=== PATIENT | male | born 1980 | race Caucasian/White ===

== ENCOUNTER 2020-02-05 15:21 | Outpatient (REF) | payer OTHER, SELFPAY | END 2020-02-05 15:22 | disposition home or self-care (01) | LOC: HO.LAB 15:21 | PROVIDERS: Visit Provider Hospitalist | DX: Z20.828 Contact with and (suspected) exposure to other viral communicable diseases (principal) | CPT/HCPCS: U0003 ==

== ENCOUNTER 2020-03-01 08:43 | Outpatient (REF) | payer OTHER, SELFPAY ==
[2020-03-01 11:25] LABS: MANUAL DIFF FLAG NO
[2020-03-01 11:52] LABS: Basophils Absolute Auto 0.1 X10*3/uL (0.0-0.2); Basophils Percent Auto 0.7 % (0-2); Eosinophils Absolute Auto 0.2 X10*3/uL (0.0-0.4); Eosinophils Percent Auto 2.8 % (0-4); Hematocrit 44.9 % (42-52); Hemoglobin 15.5 g/dl (14.0-18.0); Imm Gran Abs Auto 0.01 X10*3/uL (0.00-0.03); Imm Gran Pct Auto 0.1 % (0.0-0.4); Lymphocytes Absolute Auto 2.1 X10*3/uL (1.2-4.9); Lymphocytes Percent Auto 28.8 % (20-40); Mean Corpuscular HGB Conc 34.5 g/dl (31.0-36.0); Mean Corpuscular Hemoglobin 27.2 pg (27.0-33.0); Mean Corpuscular Volume 78.8 fL (80-98); Mean Platelet Volume 10.4 fL (9.4-12.4); Monocytes Absolute Auto 0.6 X10*3/uL (0.1-1.2); Monocytes Percent Auto 8.3 % (2-11); Neutrophils Absolute Auto 4.2 X10*3/uL (2.0-8.3); Neutrophils Percent Auto 59.3 % (45-73); Platelet Count 215 X10*3/uL (160-400); White Blood Count 7.2 X10*3/uL (4.8-10.8)
[2020-03-01 12:10] LABS: Alanine Aminotransferase 33 U/L (0-40); Albumin Level 4.6 g/dL (3.5-5.0); Alkaline Phosphatase 87 U/L (39-117); Anion Gap 14 (12-20); Aspartate Amino Transferase 36 U/L (5-37); Bilirubin Total 0.7 mg/dL (0.0-1.0); Blood Urea Nitrogen 22 mg/dL (9-16); Calcium 8.9 mg/dL (8.4-10.2); Carbon Dioxide 28 mmol/L (22-29); Chloride 104 mmol/L (96-108); Cholesterol 192 mg/dL; Estimated Glomerular Filt Rate 52; Glucose Random 84 mg/dL (60-115); HDL Cholesterol 29 mg/dL; LDL Cholesterol Calculated 107 mg/dl; Potassium 3.9 mmol/l (3.3-5.1); Sodium 142 mmol/L (135-145); Total Protein 7.3 g/dL (6.5-8.0); Triglycerides 283 mg/dL
== END 2020-03-01 08:44 | disposition home or self-care (01) ==
LOC: HO.HMGCLDS 08:43
PROVIDERS: PCP Nurse Practitioner Family; Visit Provider Nurse Practitioner Family
DX: Z01.818 Encounter for other preprocedural examination (principal); I10 Essential (primary) hypertension
CPT/HCPCS: 36415; 80053; 80061; 84443; 85025

== ENCOUNTER 2020-03-11 08:31 | Outpatient (REF) | payer OTHER, SELFPAY ==
[2020-03-11 11:14] LABS: INTERNATIONAL NORM RATIO 0.9 (0.9-1.1); Prothrombin Time 11.2 SEC (10.8-13.0)
== END 2020-03-11 08:32 | disposition home or self-care (01) ==
LOC: HO.HMGCLDS 08:31
PROVIDERS: PCP Nurse Practitioner Family; Visit Provider Nurse Practitioner Family
DX: Z01.818 Encounter for other preprocedural examination (principal); I10 Essential (primary) hypertension
CPT/HCPCS: 36415; 85610

== ENCOUNTER 2020-05-20 13:53 | Outpatient (REF) | payer OTHER, SELFPAY ==
--- NOTE | ~2020-05-20 | XR_ITS ---
EXAMINATION: XR LUMBOSACRAL SPINE CLINICAL INFORMATION: Lower back pain COMPARISON: 07/26/2018 TECHNIQUE: Three views of the lumbosacral spine. FINDINGS: The vertebral bodies and posterior elements are normal. The disc spaces are preserved and the vertebral alignment is normal. The sacroiliac joints are symmetric. The sacrum appears intact. The bowel gas pattern is unremarkable. The paraspinal soft tissues are normal. XR/XR lumbar spine 2-3V IMPRESSION: Normal appearance of the lumbar spine.
== END 2020-05-20 13:54 | disposition home or self-care (01) ==
LOC: HO.HMGCX 13:53
PROVIDERS: PCP Nurse Practitioner Family; Visit Provider Nurse Practitioner Family
DX: M54.5 Low back pain (principal)
CPT/HCPCS: 72100

== ENCOUNTER 2020-05-27 10:10 | Outpatient (REF) | payer OTHER, SELFPAY ==
[2020-05-31 22:03] LABS: Testosterone, Free 64.9 pg/mL (35.0-155.0); Testosterone, Total 276 ng/dL (250-1100)
== END 2020-05-27 10:11 | disposition home or self-care (01) ==
LOC: HO.HMGCLDS 10:10
PROVIDERS: PCP Nurse Practitioner Family; Visit Provider Urology
DX: E29.1 Testicular hypofunction (principal)
CPT/HCPCS: 36415; 84402; 84403

== ENCOUNTER → 2020-06-19 13:30 | Outpatient (BNVA) | payer OTHER, SELFPAY | PROVIDERS: PCP Nurse Practitioner Family; Visit Provider Urology | DX: Z13.89 Encounter for screening for other disorder (principal) | CPT/HCPCS: 99212 ==

== ENCOUNTER 2020-08-20 15:00 | Outpatient (RCR) | payer OTHER, SELFPAY ==
--- NOTE | 2020-07-04 09:49 | MHC.PT.EP ---
[facility] [place] [facility] [place] Office [place] Office [address] [phone] F: [phone] F: [phone] F: [phone] F: [phone] Physical Therapy Plan of Care Date of Evaluation: Date of Surgery: Diagnosis: Assessment: Pt is a 39 y/o male referred to PT for eval and treat of LBP who presents with signs and Sx consistent with lumbar dysfunction and possible derangement resulting in decreased tolerance for sitting and standing for duration, performing heavy HH chores and lifting objects of increased weight as well as disturbed sleep secondary to decreased trunk ROM, increased lumbar tissue tension, L LE radicular symptoms and pain. Pt is deemed an appropriate candidate to receive skilled PT services in order to address his physical impairments to improve his functional ability. Frequency and Duration: The patient will be seen 2 x/ wk x 5 wks. Short Term Goals: Complete PT eval upon next visit as Pt requested to leave before appointment ended. Abolish LE radicular Sx. Life Sciences Director Goals: Pt will be able to tolerate standing > 1 hour with managed Sx; initial: 10 min. I with HEP. Pt will report < 50% disturbed sleep d/t LBP; initial 3/4 disturbed night's sleep. Treatment Plan: Modalities to reduce pain, spasms and effusion. Manual therapy to restore motion and function. Therapeutic exercise to improve strength and flexibility. Neuromuscular re-education for posture and balance. Therapeutic activities to return to functional activities of daily living. Electronically signed by: Estuardo Roque PT. Please sign and return to therapist. Thank you for your referral.
--- NOTE | 2020-10-16 09:57 | MHC.PT.DC ---
[facility] [place] Office [place] Office [place] Office [address] [phone] F: [phone] F: [phone] F: [phone] F: [phone] Physical Therapy Discharge Report Diagnosis: Date of Surgery: Date of Evaluation: 06/14/20 Date of Discharge: 07/16/20 Treatments to Date: 4 Cancellations to Date: No Shows to Date: Discharge Status: Achieved Goals Improved Function Independent with HEP Discharge Summary: Gerard reported significant improvement in 4 visits and elected to stop d/t a worsening foot issue. Electronically signed by: Estuardo Roque PT Please sign and return to therapist. Thank you for your referral.
== END 2020-10-16 09:57 | disposition home or self-care (01) ==
LOC: HO.PTCHIC 15:00
PROVIDERS: PCP Nurse Practitioner Family; Visit Provider Nurse Practitioner Family
DX: M54.5 Low back pain (principal)
CPT/HCPCS: 97110; 97140; 97161

== ENCOUNTER 2020-09-05 11:22 | Outpatient (REF) | payer OTHER, SELFPAY | END 2020-09-05 11:23 | disposition home or self-care (01) | LOC: HO.LNP 11:22 | PROVIDERS: Visit Provider Hospitalist | DX: Z20.822 Contact with and (suspected) exposure to COVID-19 (principal) | CPT/HCPCS: U0003; U0005 ==

== ENCOUNTER 2020-10-14 09:50 | Outpatient (REF) | payer OTHER, SELFPAY ==
[2020-10-18 01:55] LABS: Testosterone, Total 328 ng/dL (250-1100)
== END 2020-10-14 09:51 | disposition home or self-care (01) ==
LOC: HO.HMGCLDS 09:50
PROVIDERS: PCP Nurse Practitioner Family; Visit Provider Urology
DX: E29.1 Testicular hypofunction (principal)
CPT/HCPCS: 36415; 84403

== ENCOUNTER → 2020-11-08 15:40 | Outpatient (BNVA) | payer OTHER, SELFPAY | PROVIDERS: PCP Nurse Practitioner Family; Visit Provider Urology | DX: E29.1 Testicular hypofunction (principal) ==

== ENCOUNTER 2020-12-03 12:32 | Outpatient (REF) | payer OTHER, SELFPAY ==
--- NOTE | ~2020-12-03 | XR_ITS ---
EXAMINATION: XR HIP, LEFT CLINICAL INFORMATION: Left hip sprain. COMPARISON: None TECHNIQUE: AP view of the pelvis. AP and frog-leg lateral views of the left hip. FINDINGS: No fracture or dislocation. No joint space narrowing or marginal osteophytes. No osseous erosion. No abnormal soft tissue calcification. Surgical clips within the scrotum. XR/XR hip LT w PEL1V IMPRESSION: No acute osseous abnormality.
[2020-12-03 14:55] LABS: Influenza A PCR NEGATIVE (Negative); Influenza B PCR NEGATIVE (Negative); Resp Syncy Virus RNA Qual PCR NEGATIVE (Negative); SARS COV2 PCR INHOUSE NEGATIVE (Negative)
== END 2020-12-03 12:33 | disposition home or self-care (01) ==
LOC: HO.HMGCX 12:32
PROVIDERS: Internal Medicine; PCP Nurse Practitioner Family; Visit Provider Nurse Practitioner Family
DX: S73.102A Unspecified sprain of left hip, initial encounter (principal); R43.9 Unspecified disturbances of smell and taste
CPT/HCPCS: 0241U; 36415; 73502

== ENCOUNTER 2020-12-26 13:31 | Outpatient (REF) | payer OTHER, SELFPAY ==
[2020-12-26 16:45] LABS: Alanine Aminotransferase 33 U/L (0-40); Albumin Level 4.3 g/dL (3.5-5.0); Alkaline Phosphatase 67 U/L (39-117); Anion Gap 10 (12-20); Aspartate Amino Transferase 27 U/L (5-37); Bilirubin Total 0.4 mg/dL (0.0-1.0); Blood Urea Nitrogen 16 mg/dL (9-16); Calcium 9.1 mg/dL (8.4-10.2); Carbon Dioxide 29 mmol/L (22-29); Chloride 103 mmol/L (96-108); Estimated Glomerular Filt Rate 48; Glucose Random 71 mg/dL (60-115); Potassium 3.9 mmol/L (3.3-5.1); Sodium 138 mmol/L (135-145); Total Protein 6.9 g/dL (6.5-8.0)
== END 2020-12-26 13:32 | disposition home or self-care (01) ==
LOC: HO.HMGCLDS 13:31
PROVIDERS: PCP Nurse Practitioner Family; Visit Provider Nurse Practitioner Family
DX: Z00.00 Encounter for general adult medical examination without abnormal findings (principal); I10 Essential (primary) hypertension
CPT/HCPCS: 36415; 80053; 84443

== ENCOUNTER 2021-01-16 11:12 | Outpatient (REF) | payer OTHER, SELFPAY ==
[2021-01-16 14:10] LABS: Alanine Aminotransferase 30 U/L (0-40); Albumin Level 4.4 g/dL (3.5-5.0); Alkaline Phosphatase 67 U/L (39-117); Anion Gap 12 (12-20); Aspartate Amino Transferase 25 U/L (5-37); Bilirubin Total 0.8 mg/dL (0.0-1.0); Blood Urea Nitrogen 23 mg/dL (9-16); Calcium 9.5 mg/dL (8.4-10.2); Carbon Dioxide 27 mmol/L (22-29); Chloride 105 mmol/L (96-108); Estimated Glomerular Filt Rate 47; Glucose Fasting 105 mg/dL (60-99); Potassium 4.2 mmol/L (3.3-5.1); Sodium 140 mmol/L (135-145); Total Protein 7.1 g/dL (6.5-8.0)
[2021-01-16 14:32] LABS: Prostate Specific Antigen 0.58 ng/mL (<0.05-4.0)
[2021-01-21 22:46] LABS: Estradiol Ultra Sensitive 54 pg/mL (< OR = 29)
[2021-01-22 14:41] LABS: Testosterone, Free 67.6 pg/mL (35.0-155.0); Testosterone, Total 338 ng/dL (250-1100)
== END 2021-01-16 11:13 | disposition home or self-care (01) ==
LOC: HO.HMGCLDS 11:12
PROVIDERS: Absent Provider Urology; PCP Nurse Practitioner Family; Visit Provider Nurse Practitioner Family
DX: Z00.00 Encounter for general adult medical examination without abnormal findings (principal); E29.1 Testicular hypofunction; N18.9 Chronic kidney disease, unspecified; I10 Essential (primary) hypertension; Z12.5 Encounter for screening for malignant neoplasm of prostate
CPT/HCPCS: 36415; 80053; 82670; 84153; 84402; 84403

== ENCOUNTER → 2021-03-18 15:57 | Outpatient (REF) | payer OTHER, SELFPAY | LOC: HO.SL 15:57 | PROVIDERS: PCP Nurse Practitioner Family; Visit Provider Nurse Practitioner Family | DX: G47.30 Sleep apnea, unspecified (principal) | CPT/HCPCS: 95806 ==

== ENCOUNTER → 2021-03-20 08:50 | Outpatient (BNVA) | payer OTHER, SELFPAY | PROVIDERS: PCP Nurse Practitioner Family; Visit Provider Urology ==

== ENCOUNTER → 2021-03-24 11:48 | Outpatient (BNVA) | payer OTHER, SELFPAY | PROVIDERS: Visit Provider Urology ==

== ENCOUNTER → 2021-04-01 14:55 | Outpatient (BNVA) | payer OTHER, SELFPAY | PROVIDERS: PCP Nurse Practitioner Family; Referring Provider Nurse Practitioner Family; Visit Provider Psychiatry & Neurology Neurology | DX: G47.33 Obstructive sleep apnea (adult) (pediatric) (principal) | CPT/HCPCS: 99202 ==

== ENCOUNTER 2021-05-29 10:36 | Emergency (ER) | payer OTHER, SELFPAY ==
[2021-05-29] VITALS (7 sets, daily range): BP systolic 142–162; BP diastolic 74–102; PULSE 78–93; RESP 13–18; TEMP 36.6–36.8; O2SAT 95–98; BMI 33.0
--- NOTE | ~2021-05-29 | XR_ITS ---
EXAMINATION: XR CHEST CLINICAL INFORMATION: Cough. COMPARISON: Chest x-rays 02/21/2019 TECHNIQUE: 2 views of the chest were obtained. FINDINGS: The lungs are well-expanded with mild elevation right hemidiaphragm. There is no acute pneumonic process. The heart size and pulmonary vascularity is normal. No gross bony abnormality seen. XR/XR chest 2V IMPRESSION: Unremarkable chest examination.. No change from previous study 02/21/2019
--- NOTE | ~2021-05-29 | CT_ITS ---
EXAMINATION: CT CHEST WITHOUT CONTRAST CLINICAL INFORMATION: Shortness of breath. Cough. Evaluate for pneumonia. COMPARISON: Chest x-ray 05/29/2021 TECHNIQUE: Multidetector volumetric CT imaging of the chest was done. Axial MIP volume rendering provided. Sagittal and coronal reformatted images were obtained. This CT examination was performed using dose optimization techniques as appropriate, variously including the following: *Automated exposure control *Adjustment of mA and/or kV according to patient size (this includes techniques or standardized protocols for targeted exams where dose is matched to indication/reason for exam; i.e. extremities or head) *Use of iterative reconstruction technique DLP: 370 mGy-cm FINDINGS: LUNGS: The lungs are clear with no evidence of inflammation or nodules. MEDIASTINUM: Heart size is normal. No pericardial effusion. Moderate volume of coronary artery calcification. No mediastinal mass or significant lymphadenopathy. Partially visualized thyroid is unremarkable. PLEURA: There is no pleural effusion. No pleural mass or thickening. AXILLA: No lymphadenopathy. UPPER ABDOMEN: Unremarkable. OSSEOUS STRUCTURES: Unremarkable. CT/CT chest wo con IMPRESSION: No acute abnormality of chest. Fleischner guidelines were followed.
--- NOTE | 2021-05-29 11:21 | ED.URI ---
HPI - URI/Sore Throat General Chief Complaint: Upper Respiratory Symptoms Stated Complaint: difficulty breathing Time Seen by Provider: 05/29/21 11:00 Source: patient Mode of arrival: ambulatory Limitations: no limitations History of Present Illness HPI Narrative: 40-year-old male with a history of obstructive sleep apnea, chronic kidney disease, high blood pressure here with reports of continued cough, shortness of breath with coughing, chest discomfort with coughing. Patient tells me Wednesday evening he started to have a fever, cough. This continued through Wednesday. Wednesday morning he went to urgent care. He tells me he had a chest x-ray that was concerning for pneumonia. His testing for flu and COVID were negative. He was started on azithromycin and prednisone and given an albuterol for p.r.n.. Patient tells me he is taking these medications with continued symptoms. He does not feel like he is getting better. He tells me his biggest complaint is cough which is worsened at night time and is associated with coughing fits. He denies any leg swelling or leg pain. He had a fever on day 1 but no fever since then. He tells me both of his stepdaughter's are sick with fever and cough. No recent travel. Related Data Home Medications Medication Instructions Recorded Confirmed tadalafil 10 mg tablet 10 mg PO DAILY PRN tab 04/15/21 Previous Rx's Medication Instructions Recorded triamcinolone acetonide 0.1 % 1 applic TOPICAL DAILY 30 Days #80 12/25/19 topical cream g lidocaine 5 % topical patch 1 patch TOPICAL DAILY PRN 15 Days 05/27/20 #15 ea albuterol sulfate 90 mcg/actuation 1 inh INHALATION QID PRN #6.7 g 12/03/20 aerosol inhaler needle (disp) 22 G 22 gauge x 1 #20 ea 03/20/21 1/2 (BD Regular Bevel [employer]) needle (disp) 25 gauge 25 gauge x #30 ea 03/20/21 5/8 (BD Regular Bevel [employer]) syringe (disposable) 1 mL (BD #30 ea 03/20/21 Luer-Christiano Syringe) testosterone cypionate 200 mg/mL 80 mg (0.4 mL) SUBCUT QWEEK 28 03/20/21 intramuscular oil Days #2 ml (Depo-Testosterone) losartan 100 1 tab PO DAILY 90 Days #90 tab 03/31/21 mg-hydrochlorothiazide 12.5 mg tablet omeprazole 20 mg capsule,delayed 20 mg PO DAILY 30 Days #30 cap 04/14/21 release cyclobenzaprine 10 mg tablet 10 mg PO BEDTIME #14 tab 04/15/21 meloxicam 15 mg tablet 15 mg PO DAILY #14 tab 04/15/21 codeine 10 mg-guaifenesin 100 mg/5 5 ml PO Q6H PRN #118 ml 05/29/21 mL oral liquid prednisone 20 mg tablet 40 mg PO DAILY #10 tab 05/29/21 Allergies Allergy/AdvReac Type Severity Reaction Status Date / Time No Known Allergies Allergy Verified 04/15/21 09:30 [No Known Allergies*] Review of Systems Review of Systems: Yes all other systems are reviewed and are negative Constitutional: Constitutional: Reports no additional constitutional complaints, Denies body ache(s), Denies chills, Denies fever(s), Denies headache(s) and Denies weakness Eyes: Eyes: Reports no additional eye complaints and Denies change in vision ENT: Reports system reviewed and no additional complaints, except as documented, Denies dizziness, Denies headache(s), Denies nasal congestion, Denies nasal discharge and Denies neck pain Cardiovascular: Cardiovascular: Reports no additional cardiovascular complaints, Denies chest pain, Denies leg edema and Reports dyspnea Respiratory: Respiratory: Reports no additional respiratory complaints, Reports cough and Reports dyspnea Gastrointestinal: Gastrointestinal: Reports no additional gastrointestinal complaints, Denies abdominal pain, Denies diarrhea, Denies nausea and Denies vomiting Genitourinary: Genitourinary: Denies urinary incontinence Musculoskeletal: Musculoskeletal: Reports no additional musculoskeletal complaints, Denies back pain, Denies arthralgias, Denies joint swelling, Denies neck pain, Denies numbness and Denies tingling Integumentary/Breasts: Skin/Breast: Reports system reviewed and no additional complaints, except as docu and Denies rash Neurologic: Reports system reviewed and no additional complaints, except as documented, Denies Abnormal speech present, Denies dizziness, Denies headache(s), Denies numbness, Denies tingling and Denies weakness PMFSH Past Medical History Attestation statement: The following information was validated with the patient. Source: old records reviewed and nursing notes reviewed Medical History BPH (benign prostatic hyperplasia) CAD (coronary artery disease) CKD (chronic kidney disease) Hypogonadism in male Renal calculi Right foot pain Right foot pain Surgical History No pertinent past surgical history Status post right foot surgery Family History Family History Father No problems noted. Mother No problems noted. Social History Social History Alcohol intake: current Alcohol intake frequency: holidays/special occasions only Patient Tobacco Use Status: Never used Tobacco Advance Directives: No Physical Exam Vital Signs: Vital Signs: Last Vital Signs Temp 98.3 F 05/29/21 16:27 Pulse 80 05/29/21 16:27 Resp 13 05/29/21 16:27 BP 162/78 H 05/29/21 16:27 Pulse Ox 95 05/29/21 16:27 BMI result Body Mass Index 33.0 Const: General: cooperative, healthy appearing, comfortable and no acute distress Orientation/consciousness: patient oriented x3 Limitations: no limitations HEENT: Head: Yes normal to inspection Ears: hearing grossly normal bilaterally General nose exam: Normal external nose present Face and sinus: Yes normal facial exam Mouth: Normal oral and palatal mucosa present Throat: Yes posterior oropharynx normal Eyes: General: appearance normal, both eyes and all related structures Pupils: Equal, round and reactive pupils present Neck: Neck: Yes normal visual inspection Chest: Chest palpation & inspection: normal inspection of the chest Resp: Other: Frequent bronchospastic cough Mild expiratory wheezing throughout Effort & Inspection: normal respiratory effort Cardio: Rate: regular rate Rhythm: regular rhythm Peripheral pulses: Peripheral pulses 2+ throughout GI: Inspection: Yes normal to inspection Palpation (GI): Soft to palpation and nontender Auscultation: normal bowel sounds Back/Spine/Pelvis: Thoracic/Lumbar Spine: thoracic and lumbar spine normal to inspection Skin: General skin exam: no rashes or lesions noted Neuro: General: patient oriented x3, no focal motor deficits and normal sensation to monofilament Cranial nerves: Yes Equal, round and reactive pupils present Cognition (Neuro): normal cognition Speech: No Abnormal speech present Gait exam (Neuro): Normal gait present Motor exam (neuro): 5/5 motor strength present throughout Extrem: General: Yes normal to inspection and Yes no pedal edema Course Course Course Narrative: 40-year-old male here with persistent cough, difficulty breathing with coughing since Wednesday despite being on azithromycin, prednisone and using albuterol MDI. On arrival the patient is stable vital signs. He does have a frequent bronchospastic cough and mild expiratory wheezing on exam. He tells me he is unsure if he is using his albuterol at home appropriately. Will repeat x-ray, flu and COVID testing. Will give albuterol MDI and reassess. Reevaluation(s) Reevaluation #1: Fluid COVID testing are negative. Chest x-ray shows no acute finding. Continued cough/SOB. Will obtain labs including d dimer. Time: 12:36 Reevaluation #2: Labs are unremarkable. Will obtain CT chest to rule out occult pneumonia Time: 14:20 Reevaluation #3: CT chest shows no acute finding. Likely viral syndrome which is triggering bronchospasm and wheezing. Patient has albuterol. Will repeat course of prednisone and give cough suppressant. Reviewed worrisome signs and symptoms of when to return to the emergency department. Comfortable discharge home. Time: 17:24 MDM - URI/Sore Throat MDM Narrative Medical decision making narrative: Less likely PE with negative D-dimer, no tachypnea, hypoxia, tachycardia, no evidence of DVT on exam clinically Medical Records Attestation: I reviewed the patient's medical records. Lab Data Attestation: I reviewed the patient's lab results. Result diagrams: 05/29/21 13:14 05/29/21 13:14 Labs: Lab Results 05/29/21 05/29/21 05/29/21 Range/Units 11:08 11:08 13:14 WBC 10.3 (4.8-10.8) X10*3/uL RBC 6.63 H (4.60-5.80) X10*6/uL Hgb 17.0 (14.0-18.0) g/dl Hct 50.0 (42.0-52.0) % MCV 75.4 L (80.0-98.0) fL MCH 25.6 L (27.0-33.0) pg MCHC 34.0 (31.0-36.0) g/dl RDW 13.8 (11.0-16.0) % Plt Count 285 (160-400) X10*3/uL MPV 9.4 (9.4-12.4) fL Immature Gran % (Auto) 0.5 H (0.0-0.4) % Neut % (Auto) 84.2 H (45-73) % Lymph % (Auto) 11.9 L (20-40) % [place] % (Auto) 3.0 (2-11) % Eos % (Auto) 0.0 (0-4) % Baso % (Auto) 0.4 (0-2) % Lymph # (Auto) 1.2 (1.2-4.9) X10*3/uL [place] # (Auto) 0.3 (0.1-1.2) X10*3/uL Eos # (Auto) 0.0 (0.0-0.4) X10*3/uL Baso # (Auto) 0.0 (0.0-0.2) X10*3/uL Abs Immat Gran (auto) 0.05 H (0.00-0.03) X10*3/uL Absolute Neuts (auto) 8.7 H (2.0-8.3) x10*3/uL Absolute Nucleated RBC 0.000 (0.0-0.012) X10*3/uL Nucleated RBC % (auto) 0.0 (0.0-0.2) /100WBC PT (9.9-13.0) SEC INR (0.9-1.1) D-Dimer High Sensitivty NG/ML Sodium (135-145) mmol/L Potassium (3.3-5.1) mmol/L Chloride (96-108) mmol/L Carbon Dioxide (22-29) mmol/L Anion Gap (12-20) BUN (9-16) mg/dL Creatinine (0.5-1.4) mg/dL Estim Creat Clear Calc Estimated GFR Random Glucose (60-115) mg/dL Calcium (8.4-10.2) mg/dL Magnesium (1.6-2.6) mg/dL Total Bilirubin (0.0-1.0) mg/dL Direct Bilirubin (0.0-0.5) mg/dL AST (5-37) U/L ALT (0-40) U/L Alkaline Phosphatase (39-117) U/L Troponin I High Sens (<3.5-35.0) ng/L B-Natriuretic Peptide (<100) pg/mL Total Protein (6.5-8.0) g/dL Albumin (3.5-5.0) g/dL COVID-19 (ATUL) Negative (Negative) COVID-19 Clin Com See Note Influenza Type A (TALIA) Negative (Negative) Influenza Type B (TALIA) Negative (Negative) Influenza A & B Note See Note 05/29/21 05/29/21 05/29/21 Range/Units 13:14 13:14 13:14 WBC (4.8-10.8) X10*3/uL RBC (4.60-5.80) X10*6/uL Hgb (14.0-18.0) g/dl Hct (42.0-52.0) % MCV (80.0-98.0) fL MCH (27.0-33.0) pg MCHC (31.0-36.0) g/dl RDW (11.0-16.0) % Plt Count (160-400) X10*3/uL MPV (9.4-12.4) fL Immature Gran % (Auto) (0.0-0.4) % Neut % (Auto) (45-73) % Lymph % (Auto) (20-40) % [place] % (Auto) (2-11) % Eos % (Auto) (0-4) % Baso % (Auto) (0-2) % Lymph # (Auto) (1.2-4.9) X10*3/uL [place] # (Auto) (0.1-1.2) X10*3/uL Eos # (Auto) (0.0-0.4) X10*3/uL Baso # (Auto) (0.0-0.2) X10*3/uL Abs Immat Gran (auto) (0.00-0.03) X10*3/uL Absolute Neuts (auto) (2.0-8.3) x10*3/uL Absolute Nucleated RBC (0.0-0.012) X10*3/uL Nucleated RBC % (auto) (0.0-0.2) /100WBC PT 11.6 (9.9-13.0) SEC INR 1.0 (0.9-1.1) D-Dimer High Sensitivty < 150 NG/ML Sodium 137 (135-145) mmol/L Potassium 4.6 (3.3-5.1) mmol/L Chloride 102 (96-108) mmol/L Carbon Dioxide 22 (22-29) mmol/L Anion Gap 18 (12-20) BUN 16 (9-16) mg/dL Creatinine 1.53 H (0.5-1.4) mg/dL Estim Creat Clear Calc 76.0 Estimated GFR 50 Random Glucose 124 H D (60-115) mg/dL Calcium 9.7 (8.4-10.2) mg/dL Magnesium 2.3 (1.6-2.6) mg/dL Total Bilirubin 0.7 (0.0-1.0) mg/dL Direct Bilirubin 0.2 (0.0-0.5) mg/dL AST 25 (5-37) U/L ALT 32 (0-40) U/L Alkaline Phosphatase 67 (39-117) U/L Troponin I High Sens 5.8 (<3.5-35.0) ng/L B-Natriuretic Peptide 15 (<100) pg/mL Total Protein 7.1 (6.5-8.0) g/dL Albumin 4.3 (3.5-5.0) g/dL COVID-19 (ATUL) (Negative) COVID-19 Clin Com Influenza Type A (TALIA) (Negative) Influenza Type B (TALIA) (Negative) Influenza A & B Note Imaging Data CT scan - chest: Attestation: I personally reviewed and interpreted this imaging study as follows: Radiologist's impression: FINDINGS: LUNGS: The lungs are clear with no evidence of inflammation or nodules. ? MEDIASTINUM: Heart size is normal. No pericardial effusion. Moderate volume of coronary artery calcification. No mediastinal mass or significant lymphadenopathy. Partially visualized thyroid is unremarkable.? PLEURA: There is no pleural effusion. No pleural mass or thickening.? AXILLA: No lymphadenopathy.? UPPER ABDOMEN: Unremarkable.? OSSEOUS STRUCTURES: Unremarkable.? CT/CT chest wo con IMPRESSION: No acute abnormality of chest.? ? Fleischner guidelines were followed. Discharge Plan Discharge Clinical Impression: Viral infection Patient Disposition: Home, Self-Care Instructions: Viral Syndrome (ED) Additional Instructions: Continue albuterol I am prescribing another round of prednisone I am also prescribing some cough medication which she may take as needed. This may make you sleepy Prescriptions: New prednisone 20 mg tablet 40 mg PO DAILY Qty: 10 0RF codeine-guaifenesin 10-100 mg/5 mL liquid 5 ml PO Q6H PRN (Reason: cough) Qty: 118 0RF No Action triamcinolone acetonide 0.1 % cream 1 applic topical DAILY 30 Days Qty: 80 1RF losartan-hydrochlorothiazide 100-12.5 mg tablet 1 tab PO DAILY 90 Days Qty: 90 0RF omeprazole 20 mg capsule,delayed release(DR/EC) 20 mg PO DAILY 30 Days Qty: 30 4RF lidocaine 5 % adhesive patch,medicated 1 patch topical DAILY PRN (Reason: pain) 15 Days Qty: 15 3RF tadalafil 10 mg tablet 10 mg PO DAILY PRN (Reason: sexual activity) 0RF cyclobenzaprine 10 mg tablet 10 mg PO BEDTIME Qty: 14 0RF meloxicam 15 mg tablet 15 mg PO DAILY Qty: 14 0RF albuterol sulfate 90 mcg/actuation HFA aerosol inhaler 1 inh inhalation QID PRN (Reason: shortness of breath or wheezing) Qty: 6.7 1RF (DME) BD Luer-Christiano Syringe 1 mL syringe See Rx Instructions .MEDSUPPLY Qty: 30 0RF Rx Instructions: Testosterone injection weekly (DME) BD Regular Bevel [employer] 25 gauge x 5/8 needle See Rx Instructions .MEDSUPPLY Qty: 30 0RF Rx Instructions: As directed - for testosterone subcutaneous injection testosterone cypionate [Depo-Testosterone] 200 mg/mL oil 80 mg subcut QWEEK 28 Days Qty: 2 5RF (DME) BD Regular Bevel [employer] 22 gauge x 1 1/2 needle See Rx Instructions .MEDSUPPLY Qty: 20 0RF Rx Instructions: As directed Referrals: Elmo Moreno, INTELLECTUAL PROPERTY COUNSEL-[facility] [Primary Care Provider] - 1 week (For continued symptom) Stand Alone Forms: Work/School Release
[2021-05-29] MEDS: Albuterol Sulfate 90 MCG 8 GM INHALER 2 PUFF INHALE (11:32)
[2021-05-29 11:42] LABS: IDNOW Serial# 55D5AD1C; Influenza A Negative (Negative); Influenza B2 Negative (Negative)
[2021-05-29 11:45] LABS: COVID-19 Test Negative (Negative)
[2021-05-29 13:20] LABS: MANUAL DIFF FLAG NO
[2021-05-29 13:27] LABS: Basophils Percent Auto 0.4 % (0-2); Imm Gran Abs Auto 0.05 X10*3/uL (0.00-0.03); Imm Gran Pct Auto 0.5 % (0.0-0.4); Lymphocytes Absolute Auto 1.2 X10*3/uL (1.2-4.9); Lymphocytes Percent Auto 11.9 % (20-40); Mean Corpuscular Hemoglobin 25.6 pg (27.0-33.0); Mean Corpuscular Volume 75.4 fL (80.0-98.0); Mean Platelet Volume 9.4 fL (9.4-12.4); Monocytes Absolute Auto 0.3 X10*3/uL (0.1-1.2); Neutrophils Absolute Auto 8.7 x10*3/uL (2.0-8.3); Neutrophils Percent Auto 84.2 % (45-73); Platelet Count 285 X10*3/uL (160-400); Red Blood Count 6.63 X10*6/uL (4.60-5.80); Red Cell Distribution Width 13.8 % (11.0-16.0); White Blood Count 10.3 X10*3/uL (4.8-10.8)
[2021-05-29 13:32] LABS: Prothrombin Time 11.6 SEC (9.9-13.0)
[2021-05-29 13:44] LABS: Alanine Aminotransferase 32 U/L (0-40); Albumin Level 4.3 g/dL (3.5-5.0); Alkaline Phosphatase 67 U/L (39-117); Anion Gap 18 (12-20); Aspartate Amino Transferase 25 U/L (5-37); Bilirubin Direct 0.2 mg/dL (0.0-0.5); Bilirubin Total 0.7 mg/dL (0.0-1.0); Blood Urea Nitrogen 16 mg/dL (9-16); Calcium 9.7 mg/dL (8.4-10.2); Carbon Dioxide 22 mmol/L (22-29); Chloride 102 mmol/L (96-108); Estimated Glomerular Filt Rate 50; Glucose Random 124 mg/dL (60-115); Magnesium 2.3 mg/dL (1.6-2.6); Potassium 4.6 mmol/L (3.3-5.1); Sodium 137 mmol/L (135-145); Total Protein 7.1 g/dL (6.5-8.0)
[2021-05-29 13:50] LABS: B Type Natriuretic Peptide 15 pg/mL (<100); Troponin-I High Sensitivity 5.8 ng/L (<3.5-35.0)
[2021-05-29] MEDS: guaiFEN/Codeine SF 200/20/10ML 10 ML LIQUID PO (13:59)
[2021-05-29 14:19] LABS: D Dimer High Sensitivity < 150 NG/ML
== END 2021-05-29 18:05 | disposition home or self-care (01) ==
PROVIDERS: Nurse Practitioner Family; Emergency Provider Emergency Medicine; PCP Nurse Practitioner Family
DX: B34.9 Viral infection, unspecified (principal); M54.6 Pain in thoracic spine; R06.02 Shortness of breath; R05.9 Cough, unspecified; R50.9 Fever, unspecified; Z20.822 Contact with and (suspected) exposure to COVID-19; Z79.899 Other long term (current) drug therapy
CPT/HCPCS: 36415; 71046; 71250; 80048; 80076; 83735; 83880; 84484; 85025; 85379; 85610; 87502; 87635; 94640; 99284; 99285

== ENCOUNTER 2021-06-24 13:19 | Outpatient (REF) | payer OTHER, SELFPAY ==
[2021-06-29 14:16] LABS: Testosterone, Free 327.8 pg/mL (35.0-155.0); Testosterone, Total 1360 ng/dL (250-1100)
== END 2021-06-24 13:20 | disposition home or self-care (01) ==
LOC: HO.HMGCLDS 13:19
PROVIDERS: Absent Provider Urology; PCP Nurse Practitioner Family; Visit Provider Nurse Practitioner Family
DX: E29.1 Testicular hypofunction (principal)
CPT/HCPCS: 36415; 84402; 84403

== ENCOUNTER → 2021-07-22 09:09 | Outpatient (BNVA) | payer OTHER, SELFPAY | PROVIDERS: PCP Nurse Practitioner Family; Visit Provider Urology | DX: Z13.89 Encounter for screening for other disorder (principal) ==

== ENCOUNTER 2021-09-10 16:00 | Outpatient (REF) | payer OTHER, SELFPAY ==
--- NOTE | ~2021-09-10 | XR_ITS ---
EXAMINATION: XR KNEE, LEFT CLINICAL INFORMATION: Pain COMPARISON: None TECHNIQUE: Four views of the left knee. FINDINGS: Bone alignment is normal. No fracture or dislocation is seen. Joint spaces are normal. There is no joint effusion. There is soft tissue swelling over the inferior patella and patellar tendon. XR/XR knee LT 4V IMPRESSION: Soft tissue swelling over the inferior patella and patellar tendon.
== END 2021-09-10 16:01 | disposition home or self-care (01) ==
LOC: HO.HMGCX 16:00
PROVIDERS: PCP Nurse Practitioner Family; Visit Provider Nurse Practitioner Family
DX: M25.562 Pain in left knee (principal)
CPT/HCPCS: 73564

== ENCOUNTER 2022-02-04 12:02 | Outpatient (REF) | payer OTHER, SELFPAY ==
[2022-02-04 12:50] LABS: Influenza A PCR NEGATIVE (Negative); Influenza B PCR NEGATIVE (Negative); Resp Syncy Virus RNA Qual PCR NEGATIVE (Negative); SARS COV2 PCR INHOUSE NEGATIVE (Negative)
== END 2022-02-04 12:03 | disposition home or self-care (01) ==
LOC: HO.LNP 12:02
PROVIDERS: Visit Provider Internal Medicine
DX: Z20.822 Contact with and (suspected) exposure to COVID-19 (principal); R43.9 Unspecified disturbances of smell and taste
CPT/HCPCS: 0241U

== ENCOUNTER 2022-02-25 12:49 | Outpatient (REF) | payer OTHER, SELFPAY ==
[2022-02-25 13:57] LABS: MANUAL DIFF FLAG NO
[2022-02-25 14:07] LABS: Hematocrit 47.9 % (42.0-52.0)
[2022-02-25 14:09] LABS: Basophils Absolute Auto 0.1 X10*3/uL (0.0-0.2); Basophils Percent Auto 0.8 % (0-2); Eosinophils Absolute Auto 0.1 X10*3/uL (0.0-0.4); Hematocrit 47.6 % (42.0-52.0); Hemoglobin 16.7 g/dl (14.0-18.0); Imm Gran Abs Auto 0.02 X10*3/uL (0.00-0.03); Imm Gran Pct Auto 0.3 % (0.0-0.4); Lymphocytes Absolute Auto 1.6 X10*3/uL (1.2-4.9); Lymphocytes Percent Auto 24.9 % (20-40); Mean Corpuscular HGB Conc 35.1 g/dl (31.0-36.0); Mean Corpuscular Hemoglobin 26.3 pg (27.0-33.0); Mean Platelet Volume 9.5 fL (9.4-12.4); Monocytes Absolute Auto 0.5 X10*3/uL (0.1-1.2); Monocytes Percent Auto 6.9 % (2-11); Neutrophils Absolute Auto 4.3 x10*3/uL (2.0-8.3); Neutrophils Percent Auto 65.1 % (45-73); Platelet Count 181 X10*3/uL (160-400); Red Blood Count 6.35 X10*6/uL (4.60-5.80); Red Cell Distribution Width 13.6 % (11.0-16.0); White Blood Count 6.5 X10*3/uL (4.8-10.8)
[2022-02-25 15:01] LABS: Alanine Aminotransferase 24 U/L (0-40); Albumin Level 4.2 g/dL (3.5-5.0); Alkaline Phosphatase 48 U/L (39-117); Anion Gap 12 (12-20); Aspartate Amino Transferase 27 U/L (5-37); Bilirubin Total 0.8 mg/dL (0.0-1.0); Blood Urea Nitrogen 19 mg/dL (9-16); Calcium 9.4 mg/dL (8.4-10.2); Carbon Dioxide 29 mmol/L (22-29); Chloride 103 mmol/L (96-108); Cholesterol 193 mg/dL; Estimated Glomerular Filt Rate 52; Glucose Fasting 104 mg/dL (60-99); HDL Cholesterol 27 mg/dL; LDL Cholesterol Calculated 119 mg/dl; Potassium 3.7 mmol/L (3.3-5.1); Sodium 140 mmol/L (135-145); Total Protein 6.9 g/dL (6.5-8.0); Triglycerides 235 mg/dL
[2022-02-25 15:02] LABS: TSH reflex Free T4 2.03 uIU/mL (0.32-4.0)
[2022-02-25 15:20] LABS: Prostate Specific Antigen 0.67 ng/mL (<0.05-4.0)
[2022-03-03 16:29] LABS: Testosterone, Total 301 ng/dL (250-1100)
== END 2022-02-25 12:50 | disposition home or self-care (01) ==
LOC: HO.HMGCLDS 12:49
PROVIDERS: PCP Nurse Practitioner Family; Visit Provider Urology
DX: Z00.00 Encounter for general adult medical examination without abnormal findings (principal); Z12.5 Encounter for screening for malignant neoplasm of prostate; E29.1 Testicular hypofunction
CPT/HCPCS: 36415; 80053; 80061; 84153; 84403; 84443; 85014; 85025

== ENCOUNTER → 2022-03-06 14:57 | Outpatient (BNVA) | payer OTHER, SELFPAY | PROVIDERS: PCP Nurse Practitioner Family; Visit Provider Urology | DX: Z13.89 Encounter for screening for other disorder (principal) ==

== ENCOUNTER 2022-07-02 08:44 | Outpatient (REF) | payer OTHER, SELFPAY ==
--- NOTE | ~2022-07-02 | XR_ITS ---
EXAMINATION: XR CHEST CLINICAL INFORMATION: Chest pain COMPARISON: CT chest of May 29, 2021 and chest x-ray of May 29, 2021 TECHNIQUE: 2 views of the chest were obtained. FINDINGS: About the lateral aspect left upper chest there is an ill-defined density measuring approximately 2.3 x 1.7 cm in size which was not seen on prior examinations. No pneumothorax or pleural effusion. Heart normal size. No evidence of pulmonary edema. XR/XR chest 2V IMPRESSION: Left upper lobe density for which either follow-up study in 6 weeks to ensure resolution or CT of the chest performed.
== END 2022-07-02 08:45 | disposition home or self-care (01) ==
LOC: HO.HMGCX 08:44
PROVIDERS: PCP Nurse Practitioner Family; Visit Provider Internal Medicine
DX: R07.9 Chest pain, unspecified (principal)
CPT/HCPCS: 71046

== ENCOUNTER 2022-07-29 12:43 | Outpatient (REF) | payer OTHER, SELFPAY ==
--- NOTE | ~2022-07-29 | XR_ITS ---
EXAMINATION: XR TEMPOROMANDIBULAR JOINT, BILATERAL CLINICAL INFORMATION: M26.609 - Unspecified temporomandibular joint disorder. Patient notes pain on left with swelling. No symptoms on right. COMPARISON: None available. TECHNIQUE: The bilateral temporomandibular joints are imaged in a total of 7 views. 3-lead FINDINGS: Bony mineralization appears normal. There is no fracture or destructive process or arthropathy. No joint narrowing or subchondral sclerosis or erosive change. There is normal appearing translocation of the mandibular heads with open-mouth positioning on each side. XR/XR TMJ BI IMPRESSION: -Unremarkable bilateral temporomandibular joints. -If clinically indicated, further assessment of the TMJ menisci could be evaluated with MRI.
== END 2022-07-29 12:44 | disposition home or self-care (01) ==
LOC: HO.HMGCX 12:43
PROVIDERS: PCP Nurse Practitioner Family; Visit Provider Nurse Practitioner Family
DX: M26.609 Unspecified temporomandibular joint disorder, unspecified side (principal)
CPT/HCPCS: 70330

== ENCOUNTER 2022-08-24 08:55 | Outpatient (AMB) | payer OTHER, SELFPAY ==
--- NOTE | 2022-08-24 10:18 | MHC.OFFWIV ---
Intake Vital Signs 08/24/22 10:19 BP 130/80 Blood Pressure Location Rt brachial Pulse 76 Intake Visit Reasons: Est/TMJ(lobby) Patient Tobacco Use Status: Never used Tobacco Allergies No Known Allergies [No Known Allergies*] Allergy (Verified 07/16/22 09:06) HPI Est/TMJ(lobby) HPI Details 42-year-old male presents to the office for a sick visit. Patient is complaining of pain and swelling on the left jaw. He has had TMJ dysfunction for many years. He is scheduled to see an oral surgeon at the end of next month. [facility] Medical History BPH (benign prostatic hyperplasia) CAD (coronary artery disease) CKD (chronic kidney disease) Hypogonadism in male Renal calculi Right foot pain Right foot pain Surgical History No pertinent past surgical history Status post right foot surgery Family History Father No problems noted. Mother No problems noted. Social History Housing: House Alcohol intake: current Alcohol intake frequency: holidays/special occasions only Patient Tobacco Use Status: Never used Tobacco Current occupational status: employed Cognitive needs: No Hearing needs: No Vision needs: No Physical Exam Vital Signs: Last Vital Signs Pulse 76 08/24/22 10:19 BP 130/80 08/24/22 10:19 HEENT Other: Face: Left cheek is slightly swollen. Minimal discomfort over the left TMJ joint. Assessment & Plan Assessment & Plan (1) TMJ (temporomandibular joint disorder): Code(s): M26.609 - Unspecified temporomandibular joint disorder, unspecified side Plan: Meloxicam and cyclobenzaprine called in. Patient was seen at the time when the EMR was down. The prescription was called in via telephone by the nurse. Coding Level of Care Code Est Pt Level 3 (19617) Diagnoses TMJ (temporomandibular joint disorder) M26.609
[2022-08-24 10:19] VITALS: BP 130/80; PULSE 76
== END 2022-08-24 10:32 | disposition home or self-care (01) ==
PROVIDERS: PCP Nurse Practitioner Family; Visit Provider Internal Medicine
DX: M26.609 Unspecified temporomandibular joint disorder, unspecified side (principal)
CPT/HCPCS: 99213

== ENCOUNTER 2022-09-08 13:00 | Outpatient (RCR) | payer OTHER, SELFPAY | END 2022-10-26 14:58 | disposition home or self-care (01) | LOC: HO.PTCHIC 13:00 | PROVIDERS: PCP Nurse Practitioner Family; Visit Provider Orthopaedic Surgery | DX: M75.41 Impingement syndrome of right shoulder (principal); M75.21 Bicipital tendinitis, right shoulder; M75.42 Impingement syndrome of left shoulder; M75.22 Bicipital tendinitis, left shoulder | CPT/HCPCS: 97110; 97162 ==

== ENCOUNTER 2022-09-25 10:46 | Outpatient (AMB) | payer OTHER, SELFPAY ==
--- NOTE | 2022-09-25 10:50 | A.OFFVIS_ITS ---
Intake Vital Signs 09/25/22 10:52 Height 5 ft 10 in Weight 225 lb 4.999 oz BMI 32.3 BP 156/94 H Blood Pressure Location Lt brachial Position Sitting Pulse 80 Intake Visit Reasons: Colonoscopy Screening Intake Note: Gerard presents in office as a new.patient for a colonoscopy screening. PT CC: pt reports having no concerns pt denies any other GI Issues Urban Sociologist Required: No Accompanied by: Self / Same As Patient Allergies No Known Allergies [No Known Allergies*] Allergy (Verified 09/25/22 10:50) Medication List - Last Reconciled 09/25/22 by BALA Jimenes bisacodyl (Dulcolax (bisacodyl)) 10 mg (2 x 5 mg) PO ONCE 1 day lorazepam 0.5 mg PO DAILY PRN 30 days losartan-hydrochlorothiazide 100-25 mg 1 tab PO DAILY 90 days needle (disp) 22 G (BD Regular Bevel [place]) As directed needle (disp) 25 gauge (BD Regular Bevel [place]) As directed weekly - for testosterone subcutaneous injection omeprazole 20 mg PO DAILY 30 days polyethylene glycol 3350 (Miralax) 238 grams PO ONCE syringe (disposable) (BD Luer-Christiano Syringe) Testosterone injection weekly tadalafil 10 mg PO DAILY PRN 90 days testosterone cypionate (Depo-Testosterone) 100 mg (0.5 mL) subcut QWEEK 4 weeks HPI Colonoscopy Screening HPI Details 42 year old? male here today for pre colonoscopy screening.? Patient was sent to us by his PCP.? This is his first colonoscopy screening.? Patient denies any gastrointestinal symptoms in the past or at present.? Patient reports that his paternal uncle developed terminal cancer in his 50s. Denies history of difficulty with sedation or anesthesia in the past.? History of sleep apnea. Has CPAP and uses occasionally.? Denies any history of cardiac, renal, pulmonary, or hepatic disease.?? No history of infectious? diseases like hepatitis A, B, C, HIV or tuberculosis.? Patient is not on any anticoagulation therapy. [facility] Medical History BPH (benign prostatic hyperplasia) CAD (coronary artery disease) CKD (chronic kidney disease) Hypogonadism in male Renal calculi Right foot pain Right foot pain Surgical History No pertinent past surgical history Status post right foot surgery Family History Father No problems noted. Mother No problems noted. Social History Housing: House Alcohol intake: current Alcohol intake frequency: holidays/special occasions only Patient Tobacco Use Status: Never used Tobacco Current occupational status: employed Cognitive needs: No Hearing needs: No Vision needs: No Review of Systems Const Denies weight gain and Denies weight loss ENT Reports no additional complaints, Denies dysphagia and Denies odynophagia Card Reports no additional complaints Resp Reports no additional complaints GI Denies abdominal pain, Denies belching, Denies melena, Denies bloating, Denies change in bowel habits, Denies dysphagia, Denies excessive flatus, Denies dyspepsia, Denies heartburn, Denies diarrhea, Denies loose stools, Denies nausea, Denies odynophagia and Denies vomiting Reports no additional complaints Musc Reports no additional complaints Neuro Reports no additional complaints Psych Reports no additional complaints Endo Reports no additional complaints Physical Exam Vital Signs: Last Vital Signs Pulse 80 09/25/22 10:52 BP 156/94 H 09/25/22 10:52 BMI result Body Mass Index 32.3 Const General: healthy appearing, no acute distress and well developed Nutritional Appearance: obese Orientation/consciousness: patient oriented x3 HEENT Head: Yes normal to inspection, Yes normocephalic and Yes atraumatic Face and sinus: Yes normal facial exam Mouth: Normal oral and palatal mucosa present Throat: Yes posterior oropharynx normal, Yes tonsils normal and Yes uvula midline Eyes General: appearance normal, both eyes and all related structures Neck Neck: Yes normal visual inspection, Yes full ROM and Yes trachea midline Thyroid: Thyroid normal Resp Effort & Inspection: normal respiratory effort, able to speak in complete sentences, no tracheal deviation and symmetric chest movement Auscultation: clear to auscultation bilaterally Cardio Rate: regular rate Heart sounds: S1 normal heart sound present and S2 normal heart sound present GI Inspection: Yes normal to inspection, No distended and Yes obesity Palpation (GI): Soft to palpation, not firm, nontender and No hepatosplenomegaly present Auscultation: normal bowel sounds General: Yes no CVA tenderness Back/Spine/Pelvis Back: no CVA tenderness Skin General skin exam: elasticity normal, turgor normal and dry skin Neuro General: patient oriented x3 Psych Appearance: grossly normal Mental Status: mental status grossly normal Speech and movement: Normal speech and movement present Assessment & Plan Assessment & Plan (1) Screen for colon cancer: Code(s): Z12.11 - Encounter for screening for malignant neoplasm of colon Plan: Patient denies any GI, cardiac or respiratory symptoms.? Denies any issues with anesthesia in the past.? History of sleep apnea uses CPAP occasionally. ? No history infectious diseases in the past or present.? Not on any anticoagulation therapy.? Family history of terminal colorectal CA as mentioned and HPI. Patient denies melena, hematochezia, unintentional weight loss or ribbon like stools.? Discussed at length the pre-procedure,? prep, diet & medications as well as what to expect prior, during and after the procedure.?? Stressed the importance of good bowel prep. ?Recommended the use of Vaseline or Calmoseptine OTC & baby wipes with bowel movements to promote comfort.? ?Patient verbalizes understanding and agrees to plan of care.? He was given the opportunity to ask questions and all questions answered.? We will see him after the procedure.? Medications: New bisacodyl (Dulcolax (bisacodyl)) take 2 tabs at noon the day before your colonoscopy 10 mg (2 x 5 mg) PO ONCE 2 tabs 0RF 1 day Z12.11 - Encounter for screening for malignant neoplasm of colon polyethylene glycol 3350 (Miralax) As directed by gastroenterology department at [facility] 238 grams PO ONCE 238 grams 0RF Z12.11 - Encounter for screening for malignant neoplasm of colon Discontinued triamcinolone acetonide 0.1% Discontinued Reason: Patient no longer taking 1 appl topical DAILY 80 grams 1RF 30 days albuterol sulfate 90 mcg/actuation Discontinued Reason: Patient no longer taking 1 inh inhalation QID PRN 6.7 grams 1RF shortness of breath or wheezing lidocaine 5% Discontinued Reason: Patient Completed Course 1 patch topical DAILY PRN 15 ea 3RF pain 15 days Magic Mouthwash Diphen/Lido/Antacid 1:1:1 Lidocaine Viscous 2 % 80mL; diphenhydramine 12.5 mg/5 mL 80mL; aluminum-mag hydrox-simeth [id number]/5mL 80mL Swish and spit do not swallow Discontinued Reason: Patient Completed Course 5 mL PO TID 240 mL 0RF cetirizine Discontinued Reason: Patient no longer taking 10 mg PO DAILY PRN 30 tabs 0RF allergy symptoms 30 days sucralfate (Carafate) Discontinued Reason: Patient Completed Course 1 g PO BID 28 tabs 0RF 14 days prednisone DO NOT TAKE WITH MELOXICAM OR ANY OVER THE COUNTER NSAIDs Discontinued Reason: Patient Completed Course 60 mg (3 x 20 mg) PO DAILY 18 tabs 0RF 6 days M26.609 - Unspecified temporomandibular joint disorder, unspecified side Coding Level of Care Code New Pt Level 3 (05343) Diagnoses Screen for colon cancer Z12.11 Time Spent (min) 40 Comment 30 minutes spent with patient and additional 10 minutes spent reviewing his saundra rds
[2022-09-25 10:52] VITALS: BP 156/94; PULSE 80; BMI 32.3
== END 2022-09-25 11:52 | disposition home or self-care (01) ==
PROVIDERS: PCP Nurse Practitioner Family; Visit Provider Nurse Practitioner Family
DX: Z01.818 Encounter for other preprocedural examination (principal); Z12.11 Encounter for screening for malignant neoplasm of colon
CPT/HCPCS: 99203

== ENCOUNTER → 2022-09-25 10:46 | Outpatient (BNVA) | payer OTHER, SELFPAY | PROVIDERS: PCP Nurse Practitioner Family; Visit Provider Nurse Practitioner Family | DX: K21.9 Gastro-esophageal reflux disease without esophagitis (principal); G47.33 Obstructive sleep apnea (adult) (pediatric); Z99.89 Dependence on other enabling machines and devices | CPT/HCPCS: 99202 ==

== ENCOUNTER 2022-09-25 12:03 | Outpatient (REF) | payer OTHER, SELFPAY ==
[2022-09-25 14:07] LABS: Hematocrit 50.7 % (42.0-52.0); Hemoglobin 17.4 g/dl (14.0-18.0); Mean Corpuscular HGB Conc 34.3 g/dl (31.0-36.0); Mean Corpuscular Hemoglobin 27.8 pg (27.0-33.0); Mean Corpuscular Volume 81.1 fL (80.0-98.0); Mean Platelet Volume 9.2 fL (9.4-12.4); Platelet Count 287 X10*3/uL (160-400); Red Blood Count 6.25 X10*6/uL (4.60-5.80); Red Cell Distribution Width 14.7 % (11.0-16.0); White Blood Count 8.4 X10*3/uL (4.8-10.8)
[2022-09-25 15:01] LABS: Prostate Specific Antigen 0.65 ng/mL (<0.05-4.0)
[2022-10-01 17:13] LABS: Testosterone, Total 1027 ng/dL (250-1100)
== END 2022-09-25 12:04 | disposition home or self-care (01) ==
LOC: HO.HMGCLDS 12:03
PROVIDERS: Urology; PCP Nurse Practitioner Family; Visit Provider Nurse Practitioner Family
DX: Z12.5 Encounter for screening for malignant neoplasm of prostate (principal); E29.1 Testicular hypofunction
CPT/HCPCS: 36415; 84153; 84403; 85027

== ENCOUNTER 2022-10-09 14:19 | Outpatient (AMB) | payer OTHER, SELFPAY ==
--- NOTE | 2022-10-09 12:35 | A.OFFVIS_ITS ---
Intake Intake Visit Reasons: 6M CBC/PSA/Testo(labs?) Intake Note: Patient presents today for a follow-up on 6M CBC/PSA/Testo Labs Results: Meds- None Allergies to Antibiotic- No Known Allergies Blood Thinner- None Edge Kitter Required: No Accompanied by: Self / Same As Patient Allergies No Known Allergies [No Known Allergies*] Allergy (Verified 10/09/22 14:30) Medication List - Last Reconciled 10/09/22 by Kenton Randall MD bisacodyl (Dulcolax (bisacodyl)) 10 mg (2 x 5 mg) PO ONCE 1 day lorazepam 0.5 mg PO DAILY PRN 30 days losartan-hydrochlorothiazide 100-25 mg 1 tab PO DAILY 90 days needle (disp) 22 G (BD Regular Bevel [place]) As directed needle (disp) 25 gauge (BD Regular Bevel [place]) As directed weekly - for testosterone subcutaneous injection omeprazole 20 mg PO DAILY 30 days polyethylene glycol 3350 (Miralax) 238 grams PO ONCE syringe (disposable) (BD Luer-Christiano Syringe) Testosterone injection weekly tadalafil 10 mg PO DAILY PRN 90 days testosterone cypionate (Depo-Testosterone) 100 mg (0.5 mL) subcut QWEEK 4 weeks HPI HPI Comments History of Present Illness Details Gerard is a 42-year-old male who presents today to the office for a fo llow-up on 6-month lab results. 10/09/2022? Gerard is followed for a 6-month lab results. He has seen Dr. Chua on 03/06/2022 for hypogonadism in male and erectile dysfunction. I reviewed the testosterone results from 09/25/2022 was 1027. He will generally have his testosterone injection on Sundays. He admits having a generalized good mood and strength well being. Plan: PSA screening was ordered. I will refill the 22 and 25 guage needles. I will refill testosterone injections today in the office. Tele-health follow-up in [address] Chua. [facility] Medical History BPH (benign prostatic hyperplasia) CAD (coronary artery disease) CKD (chronic kidney disease) Hypogonadism in male Renal calculi Right foot pain Right foot pain Surgical History No pertinent past surgical history Status post right foot surgery Family History Father No problems noted. Mother No problems noted. Social History Housing: House Alcohol intake: current Alcohol intake frequency: holidays/special occasions only Patient Tobacco Use Status: Never used Tobacco Current occupational status: employed Cognitive needs: No Hearing needs: No Vision needs: No Review of Systems Const All systems reviewed & are unremarkable except as noted in HPI and below Reports no additional complaints Eyes Reports no additional complaints ENT Reports no additional complaints Card Denies dyspnea Resp Denies cough and Denies dyspnea GI Reports no additional complaints Musc Reports no additional complaints Skin/Breast Denies rash and Denies unusual bruising Neuro Reports no additional complaints Psych Reports no additional complaints Endo Reports no additional complaints Cyrus/Lymph Reports no additional complaints Aller/Immun Reports no additional complaints Assessment & Plan Assessment & Plan (1) Screening PSA (prostate specific antigen): Code(s): Z12.5 - Encounter for screening for malignant neoplasm of prostate (2) Hypogonadism in male: Comment: Failed clomiphene Code(s): E29.1 - Testicular hypofunction Plan PSA screening was ordered. I will refill the needle 22 and needle 25 guage. I will refill testosterone injections today in the office. Tele-health follow-up in [address] Chua. Orders: Orders PSA,Total (Free>4and<10) 5 Months Z12.5 - Encounter for screening for malignant neoplasm of prostate Testosterone, Free/Total 5 Months E29.1 - Testicular hypofunction Medications: Changed From needle (disp) 22 G As directed 30 ea 0RF E29.1 - Testicular hypofunction, E34.9 - Endocrine disorder, unspecified To needle (disp) 22 G (BD Regular Bevel [place]) As directed 30 ea 3RF E29.1 - Testicular hypofunction, E34.9 - Endocrine disorder, unspecified From needle (disp) 25 gauge As directed weekly - for testosterone subcutaneous injection 30 ea 0RF E29.1 - Testicular hypofunction To needle (disp) 25 gauge (BD Regular Bevel [place]) As directed weekly - for testosterone subcutaneous injection 30 ea 3RF E29.1 - Testicular hypofunction Refilled testosterone cypionate (Depo-Testosterone) 100 mg (0.5 mL) subcut QWEEK 2 mL 5RF 4 weeks E29.1 - Testicular hypofunction, [id number] Patient Instructions: The patient had an opportunity to ask questions regarding treatment plan. All questions were answered. Imaging, Laboratory studies and physical exam results were discussed and reviewed in detail. No major barriers to understanding were identified. The patient expressed understanding and agreement with the above tr eatment plan.? ? ? The patient is aware they should contact our office by phone for worsening of their current condition or the appearance of new symptoms. Compliance is encouraged with any medications and followup testing that is ordered.? ? ? It is a privilege to be allowed the opportunity to participate in the urologic care of your patient. If you have any questions or concerns regarding treatment for the above conditions please do not hesitate to contact me. The office telephone contact is [phone].? ? ? This note is constructed in part using voice recognition software. While every effort has been made to ensure accuracy boxing trainer errors may have been included.? ? ? Yours sincerely,? ? ? Kenton Randall MD? Coding Level of Care Code Est Pt Level 3 (93030) Diagnoses Screening PSA (prostate specific antigen) Z12.5 Hypogonadism in male E29.1
== END 2022-10-09 15:05 | disposition home or self-care (01) ==
PROVIDERS: PCP Nurse Practitioner Family; Visit Provider Urology
DX: Z12.5 Encounter for screening for malignant neoplasm of prostate (principal); E29.1 Testicular hypofunction
CPT/HCPCS: 99213

== ENCOUNTER → 2022-10-09 14:19 | Outpatient (BNVA) | payer OTHER, SELFPAY | PROVIDERS: Visit Provider Urology | DX: E29.1 Testicular hypofunction (principal) | CPT/HCPCS: 99212 ==

== ENCOUNTER 2023-03-03 08:52 | Outpatient (AMB) | payer OTHER, SELFPAY ==
[2023-03-03 09:02] VITALS: BP 150/90; PULSE 96; TEMP 37.7; O2SAT 100; BMI 34.4
--- NOTE | 2023-03-03 09:02 | AM.OFFWIN_ITS ---
Intake Vital Signs 03/03/23 09:02 Height 5 ft 10 in Weight 240 lb BMI 34.4 BP 150/90 H Blood Pressure Location Rt brachial Position Sitting Pulse 96 Pulse Source Pulse Oximeter Temp 100 F Temp Source Oral Pulse Oximetry (%) 100 Oxygen Delivery Method Room Air Intake Visit Reasons: EP coughing blood fever body aches Intake Note: pt is here today for coughing blood fever and body aches worsened yesterday. Patient Tobacco Use Status: Never used Tobacco Allergies No Known Allergies [No Known Allergies*] Allergy (Verified 03/03/23 09:18) Do you need a note to return to daycare/school/sports/work: Yes HPI HPI Comments History of Present Illness Details This is a 42-year-old male with a past medical history of hypertension, anxiety and gastroesophageal reflux disease presenting for evaluation of body aches with fevers and chills that started at 7:00 p.m. last night. Patient states he woke at 3:00 a.m. with a cough and noted blood-tinged sputum x1. Patient has not taken any medication for treatment of his symptoms. Patient is noted to be febrile upon intake and states that there have been other individuals at work with COVID-19. [facility] Medical History Hypogonadism in male BPH (benign prostatic hyperplasia) Renal calculi CAD (coronary artery disease) CKD (chronic kidney disease) Right foot pain Right foot pain Surgical History No pertinent past surgical history Status post right foot surgery Family History Father No problems noted. Mother No problems noted. Social History Housing: House Alcohol intake: current Alcohol intake frequency: holidays/special occasions only Patient Tobacco Use Status: Never used Tobacco Current occupational status: employed Cognitive needs: No Hearing needs: No Vision needs: No Review of Systems Const Reports as per HPI, Reports chills, Reports fatigue, Reports fever(s) and Reports lethargy Eyes Reports as per HPI ENT Reports no additional complaints Card Reports as per HPI and Denies dyspnea Resp Reports as per HPI, Reports cough and Denies dyspnea Skin/Breast Reports system reviewed and no additional complaints, except as documented Psych Reports no additional complaints Endo Reports fatigue Physical Exam Vital Signs: Last Vital Signs Temp 100 F 03/03/23 09:02 Pulse 96 03/03/23 09:02 BP 150/90 H 03/03/23 09:02 Pulse Ox 100 03/03/23 09:02 Oxygen Delivery Method Room Air 03/03/23 09:02 BMI result Body Mass Index 34.4 Febrile, POX 100% on room air Const General: cooperative, comfortable and no acute distress; No ill appearing Nutritional Appearance: average body habitus Orientation/consciousness: patient oriented x3 Limitations: no limitations HEENT Head: Yes normal to inspection Ears: hearing grossly normal bilaterally, external ears normal, TM's normal bilaterally and EAC's normal General nose exam: Normal external nose present Face and sinus: Yes normal facial exam and No sinus tenderness Mouth: Normal oral and palatal mucosa present and moist mucous membranes Teeth and gingiva: dentition normal Throat: Yes postnasal drainage Eyes Conjunctivae: conjunctivae normal Sclerae: sclerae normal Corneas: corneas normal Pupils: Equal, round and reactive pupils present EOM: EOMs intact bilaterally Neck Lymphatic: no lymphadenopathy noted Resp Effort & Inspection: normal respiratory effort, no audible wheezes, Actively coughing, no respiratory distress, no stridor and no use of accessory muscles Auscultation: clear to auscultation bilaterally Cardio Rate: regular rate Rhythm: regular rhythm Skin General skin exam: no rashes or lesions noted Neuro General: patient oriented x3 Cranial nerves: Yes Equal, round and reactive pupils present Psych Appearance: grossly normal Mental Status: mental status grossly normal Insight: Good insight present (Psych) Judgement: Good judgement present (Psych) Assessment & Plan Assessment & Plan (1) Cough with hemoptysis: Code(s): R04.2 - Hemoptysis Plan: SARS panel pending; mucinex OTC with increased clear fluids. Orders: Orders SARS-CoV2/FLU/RSV Today R04.2 - Hemoptysis, R50.9 - Fever, unspecified Patient Instructions: Ibuprofen or Tylenol as needed for fever. Coding Level of Care Code New Pt Level 3 (17374) Diagnoses Cough with hemoptysis R04.2 Time Spent (min) 20
== END 2023-03-03 09:44 | disposition home or self-care (01) ==
PROVIDERS: PCP Nurse Practitioner Family; Visit Provider Physician Assistant
DX: R04.2 Hemoptysis (principal)
CPT/HCPCS: 99203

== ENCOUNTER 2023-03-03 09:45 | Outpatient (REF) | payer OTHER, SELFPAY ==
[2023-03-03 12:40] LABS: Influenza A PCR NEGATIVE (Negative); Influenza B PCR NEGATIVE (Negative); Resp Syncy Virus RNA Qual PCR NEGATIVE (Negative); SARS COV2 PCR INHOUSE NEGATIVE (Negative)
== END 2023-03-03 09:46 | disposition home or self-care (01) ==
LOC: HO.LAB 09:45
PROVIDERS: Visit Provider Physician Assistant
DX: R50.9 Fever, unspecified (principal); R04.2 Hemoptysis; Z11.52 Encounter for screening for COVID-19; Z20.828 Contact with and (suspected) exposure to other viral communicable diseases
CPT/HCPCS: 0241U

== ENCOUNTER 2023-04-08 06:31 | Day surgery (SDC) | payer OTHER, SELFPAY ==
[2023-04-06 09:41] VITALS: BMI 32.3
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
[2023-04-08 06:44] VITALS: BMI 32.9
[2023-04-08] MEDS: Lactated Ringers 1,000 ML 100 ML IVCONT (06:50)
[2023-04-08 07:08] VITALS: BP 162/75; PULSE 69; RESP 18; TEMP 36.6; O2SAT 96
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
--- NOTE | 2023-04-08 08:16 | MHC.SHP ---
Pre-Procedural Eval Section A - 24 Hr Update-Section A only Date of Service: 04/08/23 Section B - Complete if H&P > 30 days Chief Complaint: screening, reflux Details of Present Illness: PMH: BPH (benign prostatic hyperplasia) CAD (coronary artery disease) CKD (chronic kidney disease) Hypogonadism in male Renal calculi Right foot pain Right foot pain Relevant Family History (Specify if Yes): No Present Medications: see Short Stay Collaborative assessment Allergies: Allergies Allergy/AdvReac Type Severity Reaction Status Date / Time No Known Allergies Allergy Verified 04/08/23 07:09 [No Known Allergies*] Review of Systems Review of Systems Comment: Ten point ROS negative Exam Exam Comment: Gen appear: No acute distress HEENT: no icterus Chest: No overt resp distress Abd: soft, nontender, nondistended Psych: Stable affect, answering questions appropriately Neuro: A/Ox3 noted to move all extremities spontaneously Ext: no peripheral edema Plan Diagnosis/Plan: Unchanged I have reviewed the history and physical and performed a pertinent physical examination on my patient. No changes have occurred unless specified. Time Spent With Patient Time: Total time managing care of this patient today ____ minutes.
--- NOTE | 2023-04-08 08:17 | PC.NURSE ---
verified with booking and GI office that patient had pre-authorization with insurance for both egd and colonoscopy.
--- NOTE | 2023-04-08 08:20 | P.OP_ITS ---
Operative Note Operative Note Date of Service: 04/08/23 Narrative: Procedure: Upper endoscopy and colonoscopy Indication: GERD, Screening Endoscopist: Valentina King MD Anesthesia Provider: Dr Saulo García Anesthesia type: MAC Instrument: Olympus GIF-H190 PCF-[id number] ?? EGD Procedure:?? The procedure, indications, preparation and potential complications were reviewed with the patient, who indicated understanding and gave written informed consent to proceed. A physical exam was performed. The endoscope was introduced through the mouth, and advanced to the third part of duodenum. The mucosa was carefully examined on slow withdrawal of the endoscope. The patient tolerated the procedure well. There were no immediate complications.? ? EGD Findings:? * Esophagus:? Normal mucosa noted in the entire esophagus. The Z line was at 38 cm. Small hiatal hernia was noted with a diaphragmatic pinch at 41 cm. Middle and lower esophagus biopsies were taken to rule out eosinophilic esophagitis. * Stomach:? A few scattered erosions were seen in the body of the stomach. Random cold forceps gastric biopsies were taken to rule out H Pylori infection. Retroflexion in the cardia showed Hill grade III hiatal hernia. * Duodenum:? Normal mucosa was noted in the whole of the examined duodenum. Cold forceps biopsies were taken from the duodenal bulb and 2nd portion of the duodenal to rule out celiac sprue. Colonoscopy Procedure: The patient was then turned for the colonoscopy. A digital rectal exam was performed which was normal. A distal attachment cap was affixed to the tip of the scope and the colonoscope was then inserted through the anus and advanced through the colon to the cecum at 70 cm and terminal ileum. Appendiceal orifice and ileocecal valve were identified. Mucosa was carefully examined under high definition white light as the instrument was slowly withdrawn in a retrograde panoramic fashion. Retroflexion was performed in ascending colon and rectum. The procedure was not difficult. There were no immediate obvious complications. The quality of the prep was BBPS: 2+3+3 = adequate Withdrawal time 18 minutes. Limitations: No limitations. Colonoscopy Findings: Mucosa: Normal to cecum and terminal ileum. Protruding lesions: * One sessile polyp of size 3 mm was noted in the ascending colon. Cold snare polypectomy was performed. The polyp was completely removed and retrieved. * One sessile polyp of size 5 mm was noted in the descending colon. Cold snare polypectomy was performed. The polyp was completely removed and retrieved. * One pedunculated polyp of size 8 mm was noted in the sigmoid colon. Hot snare polypectomy was performed. The polyp was completely removed and retrieved. * Medium internal hemorrhoids without stigmata of recent bleeding. Excavated lesions: * A few scattered diverticuli were seen in the sigmoid colon. Impressions:? * Normal esophagus (biopsy) * Hiatal hernia * Gastritis (biopsy) * Normal duodenum (biopsy) * Normal colon and terminal ileum mucosa * Total 3 polyps removed * Diverticulosis * Hemorrhoids Recommendations: - Follow path results. - No evidence of erosive esophagitis noted on endoscopy. However, if histology negative as well and high suspicion for GERD remains, can consider EGD +/- Mora off PPI therapy. - repeat colonoscopy in 3-5 years contingent on results of the polyps.
[2023-04-08 09:08] VITALS: BP 119/41; PULSE 70; RESP 16; TEMP 36.6; O2SAT 96
[2023-04-08 09:23] VITALS: BP 127/71; PULSE 74; RESP 16; TEMP 36.6; O2SAT 97
== END 2023-04-08 10:10 | disposition home or self-care (01) ==
PROVIDERS: Visit Provider Internal Medicine
PROC: (CPT 45385; principal; 2023-04-08 08:00)
DX: Z12.11 Encounter for screening for malignant neoplasm of colon (principal); D12.4 Benign neoplasm of descending colon; D12.5 Benign neoplasm of sigmoid colon; K63.5 Polyp of colon; K57.30 Diverticulosis of large intestine without perforation or abscess without bleeding; K64.8 Other hemorrhoids; K21.9 Gastro-esophageal reflux disease without esophagitis; K29.50 Unspecified chronic gastritis without bleeding; K44.9 Diaphragmatic hernia without obstruction or gangrene; N40.0 Benign prostatic hyperplasia without lower urinary tract symptoms; I12.9 Hypertensive chronic kidney disease with stage 1 through stage 4 chronic kidney disease, or unspecified chronic kidney disease; N18.9 Chronic kidney disease, unspecified; I25.10 Atherosclerotic heart disease of native coronary artery without angina pectoris; G47.30 Sleep apnea, unspecified; F41.8 Other specified anxiety disorders; Z79.899 Other long term (current) drug therapy; Z99.89 Dependence on other enabling machines and devices; Z87.891 Personal history of nicotine dependence
CPT/HCPCS: 45385; 43239; 88305; 88313; 88342; J2704

== ENCOUNTER → 2023-04-08 06:31 | Outpatient (BNV) | payer OTHER, SELFPAY | PROVIDERS: Visit Provider Internal Medicine | DX: Z12.11 Encounter for screening for malignant neoplasm of colon (principal); K63.5 Polyp of colon; K57.90 Diverticulosis of intestine, part unspecified, without perforation or abscess without bleeding; K64.8 Other hemorrhoids; K44.9 Diaphragmatic hernia without obstruction or gangrene; K29.70 Gastritis, unspecified, without bleeding | CPT/HCPCS: 43239; 45385 ==

== ENCOUNTER 2023-05-19 14:37 | Outpatient (AMB) | payer OTHER, SELFPAY ==
--- NOTE | 2023-05-19 14:42 | A.OFFVIS_ITS ---
Intake Vital Signs 05/19/23 14:43 Height 5 ft 10 in Weight 231 lb BMI 33.1 BP 120/69 Blood Pressure Location Lt brachial Position Sitting Pulse 75 Pulse Source Pulse Oximeter Pulse Oximetry (%) 99 Oxygen Delivery Method Room Air Intake Visit Reasons: colo results Intake Note: pt here for follow up results of colonoscopy. Turkish Line Attendant Required: No Information Interpreted: non-clinical & clinical Accompanied by: Self / Same As Patient Allergies No Known Allergies [No Known Allergies*] Allergy (Verified 04/08/23 07:09) HPI colo results HPI Details LAST VISIT Screen for colon cancer Patient denies any GI, cardiac or respiratory symptoms.? Denies any issues with anesthesia in the past.? History of sleep apnea uses CPAP occasionally. ? No history infectious diseases in the past or present.? Not on any anticoagulation therapy.? Family history of terminal colorectal CA as mentioned IN HPI. Patient denies melena, hematochezia, unintentional weight loss or ribbon like stools.? Discussed at length the pre-procedure,? prep, diet & medications as well as what to expect prior, during and after the procedure.?? Stressed the importance of good bowel prep. ?Recommended the use of Vaseline or Calmoseptine OTC & baby wipes with bowel movements to promote comfort.? ?Patient verbalizes understanding and agrees to plan of care.? He was given the opportunity to ask questions and all questions answered.? We will see him after the procedure.? Plan Medications New bisacodyl (Dulcolax (bisacodyl)) take 2 tabs at noon the day before your colonoscopy 10 mg (2 x 5 mg) PO ONCE 2 tabs 0RF 1 day Z12.11 - Encounter for screening for malignant neoplasm of colon polyethylene glycol 3350 (Miralax) As directed by gastroenterology department at [facility] 238 grams PO ONCE 238 grams 0RF Z12.11 - Encounter for screening for malignant neoplasm of colon UPPER ENDOSCOPY AND COLONOSCOPY: EGD Findings:? * Esophagus:? Normal mucosa noted in the entire esophagus. The Z line was at 38 cm. Small hiatal hernia was noted with a diaphragmatic pinch at 41 cm. Middle and lower esophagus biopsies were taken to rule out eosinophilic esophagitis. * Stomach:? A few scattered erosions were seen in the body of the stomach. Random cold forceps gastric biopsies were taken to rule out H Pylori infection. Retroflexion in the cardia showed Hill grade III hiatal hernia. * Duodenum:? Normal mucosa was noted in the whole of the examined duodenum. Cold forceps biopsies were taken from the duodenal bulb and 2nd portion of the duodenal to rule out celiac sprue. Colonoscopy Findings: Mucosa: Normal to cecum and terminal ileum. Protruding lesions: * One sessile polyp of size 3 mm was noted in the ascending colon. Cold snare polypectomy was performed. The polyp was completely removed and retrieved. * One sessile polyp of size 5 mm was noted in the descending colon. Cold snare polypectomy was performed. The polyp was completely removed and retrieved. * One pedunculated polyp of size 8 mm was noted in the sigmoid colon. Hot snare polypectomy was performed. The polyp was completely removed and retrieved. * Medium internal hemorrhoids without stigmata of recent bleeding. Excavated lesions: * A few scattered diverticuli were seen in the sigmoid colon. Impressions:? * Normal esophagus (biopsy) * Hiatal hernia * Gastritis (biopsy) * Normal duodenum (biopsy) * Normal colon and terminal ileum mucosa * Total 3 polyps removed * Diverticulosis * Hemorrhoids Recommendations: - Follow path results. - No evidence of erosive esophagitis not ed on endoscopy. However, if histology negative as well and high suspicion for GERD remains, can consider EGD +/- Mora off PPI therapy. - repeat colonoscopy in 3-5 years contin gent on results of the polyps. PATHOLOGY RESULTS Diagnosis A. Duodenum, biopsy: Duodenal mucosa within normal limits. B. Stomach, random, biopsy: Oxyntic mucosa with mild chronic inactive inflammation; no Helicobacter organisms seen. C. Esophagus, lower, biopsy: Squamous epithelium within normal limits; no inflammation seen. D. Esophagus, middle, biopsy: Squamous epithelium within normal limits; no inflammation seen. E. Colon, ascending, polypectomy: Colonic mucosa with mild surface hyperplastic changes. F. Colon, descending, polypectomy: Fragments of tubular adenoma; negative for high-grade dysplasia or carcinoma. G. Colon, sigmoid, polypectomy: Tubular adenoma; negative for high-grade dysplasia or carcinoma TODAY'S VISIT Patient is here today for follow-up and to discuss upper endoscopy and colonoscopy results. Patient denies any ill effects from the prep, anesthesia or procedure itself. Patient was found to have a tubular adenoma without high- grade dysplasia or carcinoma. No esophagitis, however mild inactive inflammation in stomach found via biopsy. Patient currently is on omeprazole. Reports occasionally at night time patient will have acid reflux. Patient denies any nausea or vomiting. Patient denies dyspepsia, dysphagia or odynophagia. Denies melena, hematochezia, unintentional weight loss or ribbon like stools. Patient denies any other GI concerning symptoms. Reports that he is moving his bowels without any issues. [facility] Medical History (Updated 05/27/23 @ 21:03 by Monserrat Henderson [facility]) Tubular adenoma of colon GERD (gastroesophageal reflux disease) Anxiety with depression PTSD (post-traumatic stress disorder) Lumbar stenosis HTN (hypertension) Sleep apnea Hypogonadism in male BPH (benign prostatic hyperplasia) Renal calculi CKD (chronic kidney disease) Right foot pain Surgical History Status post right foot surgery Family History Father No problems noted. Mother No problems noted. Social History Housing: House Alcohol intake: current Alcohol intake frequency: holidays/special occasions only Patient Tobacco Use Status: Former Tobacco user Current occupational status: employed Cognitive needs: No Hearing needs: No Vision needs: No Review of Systems Const Denies weight gain and Denies weight loss ENT Reports no additional complaints, Denies dysphagia and Denies odynophagia Card Reports no additional complaints Resp Reports no additional complaints GI Denies abdominal pain, Denies belching, Denies melena, Denies bloating, Denies change in bowel habits, Denies dysphagia, Denies excessive flatus, Reports dyspepsia, Reports heartburn, Denies diarrhea, Denies loose stools, Denies nausea, Denies odynophagia and Denies vomiting Reports no additional complaints Musc Reports no additional complaints Neuro Reports no additional complaints Psych Reports no additional complaints Endo Reports no additional complaints Physical Exam Vital Signs: Last Vital Signs Pulse 75 05/19/23 14:43 BP 120/69 05/19/23 14:43 Pulse Ox 99 05/19/23 14:43 Oxygen Delivery Method Room Air 05/19/23 14:43 BMI result Body Mass Index 33.1 Const General: healthy appearing, no acute distress and well developed Nutritional Appearance: well nourished Orientation/consciousness: patient oriented x3 Resp Effort & Inspection: normal respiratory effort, able to speak in complete sentences, no tracheal deviation and symmetric chest movement Auscultation: clear to auscultation bilaterally Cardio Rate: regular rate GI Inspection: Yes normal to inspection and No distended Palpation (GI): Soft to palpation, not firm, nontender and No hepatosplenomegaly present Auscultation: normal bowel sounds General: Yes no CVA tenderness Back/Spine/Pelvis Back: no CVA tenderness Skin General skin exam: elasticity normal, turgor normal and dry skin Neuro General: patient oriented x3 Psych Appearance: grossly normal Mental Status: mental status grossly normal Assessment & Plan Assessment & Plan (1) Tubular adenoma of colon: Code(s): D12.6 - Benign neoplasm of colon, unspecified (2) GERD (gastroesophageal reflux disease): Code(s): K21.9 - Gastro-esophageal reflux disease without esophagitis Qualifiers: Esophagitis presence: without esophagitis Qualified Code(s): K21.9 - Gastro-esophageal reflux disease without esophagitis (3) Status post colonoscopy: Code(s): Z98.890 - Other specified postprocedural states Plan Continue omeprazole every morning half an hour before breakfast. Patient can take famotidine at bedtime. Upper endoscopy did not show esophagitis, mild inactive chronic inflammation seen in the stomach. Discussed with patient the importance of avoiding dietary triggers and late night snacking. Staying upright for minimum 3 hours after meals discussed with patient. Colonoscopy in 3-5 years, sooner if clinically necessary. 2 polyps Tubular adenoma without high-grade dysplasia or carcinoma found. Patient will follow-up in the office in 6 months, sooner on as needed basis. Patient is agreeable to this plan and verbalizes understanding of instructions. He was given the opportunity to ask questions and all questions answered. Thank you for allowing me to participate in his care Medications: New famotidine (Pepcid) 20 mg PO BEDTIME 30 tabs 3RF K21.9 - Gastro-esophageal reflux disease without esophagitis Coding Level of Care Code Est Pt Level 3 (78288) Diagnoses Tubular adenoma of colon D12.6 Gastroesophageal reflux disease without esophagitis K21.9 Esophagitis presence: without esophagitis Status post colonoscopy Z98.890 Time Spent (min) 30 Comment 20 minutes spent with patient and additional 10 minutes spent reviewing his records
[2023-05-19 14:43] VITALS: BP 120/69; PULSE 75; O2SAT 99; BMI 33.1
== END 2023-05-19 15:04 | disposition home or self-care (01) ==
PROVIDERS: PCP Nurse Practitioner Family; Referring Provider Nurse Practitioner Family; Visit Provider Nurse Practitioner Family
DX: D12.6 Benign neoplasm of colon, unspecified (principal); K21.9 Gastro-esophageal reflux disease without esophagitis; Z98.890 Other specified postprocedural states
CPT/HCPCS: 99213

== ENCOUNTER → 2023-05-19 14:37 | Outpatient (BNVA) | payer OTHER, SELFPAY | PROVIDERS: PCP Nurse Practitioner Family; Visit Provider Nurse Practitioner Family | DX: D12.6 Benign neoplasm of colon, unspecified (principal); K21.9 Gastro-esophageal reflux disease without esophagitis; Z98.890 Other specified postprocedural states | CPT/HCPCS: 99212 ==

== ENCOUNTER 2023-06-07 12:03 | Outpatient (REF) | payer OTHER, SELFPAY ==
[2023-06-12 13:43] LABS: Testosterone, Free 64.4 pg/mL (35.0-155.0); Testosterone, Total 364 ng/dL (250-1100)
== END 2023-06-07 12:04 | disposition home or self-care (01) ==
LOC: HO.HMGCLDS 12:03
PROVIDERS: PCP Nurse Practitioner Family; Visit Provider Urology
DX: E29.1 Testicular hypofunction (principal)
CPT/HCPCS: 36415; 84402; 84403

== ENCOUNTER 2023-09-10 13:52 | Outpatient (AMB) | payer OTHER, SELFPAY ==
--- NOTE | 2023-09-10 13:48 | A.OFFVIS_ITS ---
Intake Visit Reasons: Testosterone follow up Intake Note: Patient is present for Telephone TESTOSTERONE Follow Up Urology Med: Tadalafil, Testosterone Blood Thinner: None Allergies:NONE Ed Educational Aide Required: No Allergies No Known Allergies [No Known Allergies*] Allergy (Verified 09/10/23 13:50) Medication List - Last Reconciled 09/10/23 by Zach Chua MD famotidine (Pepcid) 20 mg PO BEDTIME lorazepam 0.5 mg PO DAILY PRN 30 days losartan-hydrochlorothiazide 100-25 mg 1 tab PO DAILY 90 days needle (disp) 22 G As directed needle (disp) 25 gauge (BD Regular [place]vel [place]) As directed weekly - for testosterone subcutaneous injection omeprazole 20 mg PO DAILY syringe (disposable) (BD Luer-Christiano Syringe) Testosterone injection weekly tadalafil 20 mg PO ONCE PRN 30 days testosterone cypionate (Depo-Testosterone) 100 mg (0.5 mL) subcut QWEEK 4 weeks HPI Comments Details: Gerard is a very pleasant male. They are a patient of Dr Hernandez. They are seen in the office today for the following urologic conditions. - hypogonadism - erectile dysfunction Telemedicine evaluation Video via [employer] 15 minute consultation Video Continue with 0.5 cc weekly Refill tadalafil Six month follow-up labs Hypogonadism: Low T in test in January 2019 Current therapy testosterone injections 0.5 cc/week - injection day Wednesday - lab work /Wednesday He presents today for further evaluation of complaints regarding hypogonadism. Initial symptoms include erectile dysfunction No decreased libido Yes change in mood/depression Yes in muscle size/strength Yes increased fatigue/malaise Yes increased abdominal fat No tender breasts/gynecomastia No hair loss No osteopenia No The onset of symptoms has been gradual. Associate conditions include obstructive sleep apnea No CAD No obesity No stress - financial, family, employment No heavy alcohol or illicit drug use No Laboratory results 02/02 T 107 05/04 330 T, 06/05 275, 10/05 T 330, 02/04 330, 06/08 365 50 0.65 Current therapy includes none. Therapeutic plan injectable testosterone Erectile dysfunction Partial response to 5 mg tadalafil daily Increased to 10 mg Prescription provided [facility] Medical History (Updated 05/27/23 @ 21:03 by Monserrat Henderson, [facility] Tubular adenoma of colon GERD (gastroesophageal reflux disease) Anxiety with depression PTSD (post-traumatic stress disorder) Lumbar stenosis HTN (hypertension) Sleep apnea Hypogonadism in male BPH (benign prostatic hyperplasia) Renal calculi CKD (chronic kidney disease) Right foot pain Surgical History Status post right foot surgery Family History Father No problems noted. Mother No problems noted. Social History Housing: House Alcohol intake: current Alcohol intake frequency: holidays/special occasions only Patient Tobacco Use Status: Former Tobacco user Current occupational status: employed Cognitive needs: No Hearing needs: No Vision needs: No Review of Systems Const All systems reviewed & are unremarkable except as noted in HPI and below Reports no additional complaints Resp Reports no additional complaints GI Reports no additional complaints Reports as per HPI Musc Reports no additional complaints Physical Exam Telemedicine evaluation Appropriate responses Regular breathing rate and rhythm HEENT Head: Yes normal to inspection Ears: hearing grossly normal bilaterally Eyes General: appearance normal, both eyes and all related structures Neck Neck: Yes normal visual inspection Chest Chest palpation & inspection: normal inspection of the chest Resp Effort & Inspection: normal respiratory effort and able to speak in complete sentences Telehealth Telehealth Telehealth Platform: [employer] Location of provider rendering services: practice address Location of patient: address on file Patient Identification confirmed using: Name, : Yes Telehealth method: video Patient verbally consented to treatment: Yes Patient verbally consented to billing insurance company: Yes Patient informed of any privacy concerns related to visit: Yes Minutes spent on Phone/Video with Pt.: 15 Assessment & Plan Assessment & Plan (1) Hypogonadism in male: Comment: Failed clomiphene Code(s): E29.1 - Testicular hypofunction Category: Medical (2) Erectile dysfunction due to arterial insufficiency: Code(s): N52.01 - Erectile dysfunction due to arterial insufficiency Category: Medical Plan Six month follow-up labs Orders: Orders Prostate Specific Antigen 6 Months E29.1 - Testicular hypofunction Complete Blood Count no Diff 6 Months E29.1 - Testicular hypofunction Testosterone, Total 6 Months E29.1 - Testicular hypofunction Medications: Changed From tadalafil 10 mg PO DAILY 90 days PRN 90 tabs 1RF sexual activity N52.01 - Erectile dysfunction due to arterial insufficiency To tadalafil 20 mg PO ONCE 30 days PRN 30 tabs 1RF sexual activity N52.01 - Erectile dysfunction due to arterial insufficiency Refilled testosterone cypionate (Depo-Testosterone) 100 mg (0.5 mL) subcut QWEEK 4 weeks 2 mL 5RF E29.1 - Testicular hypofunction, [id number] Patient Instructions: Imaging studies, laboratory and physical exam results were discussed and reviewed in detail. No major barriers to patient understanding were identified. An opportunity to ask questions regarding the treatment plan was provided. All questions were answered. The patient expressed understanding and agreement with the above treatment plan. The patient is aware they should contact our office by phone for worsening of their current condition or the appearance of new urologic symptoms. Compliance is encouraged with any medications and followup testing that is ordered. It is a privilege to participate in the urologic care of your patient. If you have any questions or concerns regarding treatment for the above conditions, or other urologic issues, please do not hesitate to contact me. The office telephone contact is [phone]. This note is constructed using voice recognition software. While every effort has been made to ensure accuracy automotive sales manager errors may have been included. Yours sincerely, Dr Zach Chua MD, [facility] - Urology Providers of Expert, Compassionate Care for the Genitourinary System Coding Level of Care Code Est Pt Level 3 (60932) Diagnoses Hypogonadism in male E29.1 Erectile dysfunction due to arterial insufficiency N52.01
== END 2023-09-10 14:18 | disposition home or self-care (01) ==
LOC: HO.HUSH 13:52
PROVIDERS: PCP Nurse Practitioner Family; Visit Provider Urology
DX: E29.1 Testicular hypofunction (principal); N52.01 Erectile dysfunction due to arterial insufficiency
CPT/HCPCS: 99213

== ENCOUNTER → 2023-09-10 13:52 | Outpatient (BNVA) | payer OTHER, SELFPAY | PROVIDERS: PCP Nurse Practitioner Family; Visit Provider Urology | DX: E29.1 Testicular hypofunction (principal); N52.01 Erectile dysfunction due to arterial insufficiency | CPT/HCPCS: 99212 ==

== ENCOUNTER 2023-11-18 08:08 | Outpatient (REF) | payer OTHER, SELFPAY ==
[2023-11-18 11:09] LABS: Influenza A PCR NEGATIVE (Negative); Influenza B PCR NEGATIVE (Negative); Resp Syncy Virus RNA Qual PCR NEGATIVE (Negative); SARS COV2 PCR INHOUSE NEGATIVE (Negative)
== END 2023-11-18 08:09 | disposition home or self-care (01) ==
LOC: HO.LAB 08:08
PROVIDERS: Registered Nurse; PCP Nurse Practitioner Family; Visit Provider Physician Assistant
DX: J06.9 Acute upper respiratory infection, unspecified (principal)
CPT/HCPCS: 0241U; 87880; 99212

== ENCOUNTER 2023-11-18 08:08 | Outpatient (AMB) | payer OTHER, SELFPAY ==
--- NOTE | 2023-11-18 08:35 | AM.OFFWIN_ITS ---
Intake Vital Signs 11/18/23 08:36 Height 5 ft 10 in Weight 230 lb BMI 33.0 BP 123/90 H Blood Pressure Location Rt brachial Pulse 85 Pulse Source Pulse Oximeter Temp 98.3 F Temp Source Oral Pulse Oximetry (%) 98 Oxygen Delivery Method Room Air Intake Visit Reasons: EP-sore throat, cough,congestion, headaches Intake Note: Patient here for cough, sore throat, congestion and headache. Patient Tobacco Use Status: Former Tobacco user Allergies No Known Allergies [No Known Allergies*] Allergy (Verified 11/18/23 08:37) Do you need a note to return to daycare/school/sports/work: Yes HPI EP-sore throat, cough,congestion, headaches HPI Details This note is constructed using voice recognition software. While every effort has been made to ensure accuracy, nuclear physics professor errors may have been included. The patient is a 43 year old male who presents to the clinic today with sore throat, sinus congestion, cough for the past 5 days. His children and have all been sick for the past week, but have tested negative for covid. He denies dyspnea. He has been taking otc cough syrup. [facility] Medical History (Updated 11/18/23 @ 09:22 by Saumya Calhoun NP) Tubular adenoma of colon GERD (gastroesophageal reflux disease) Anxiety with depression PTSD (post-traumatic stress disorder) Lumbar stenosis HTN (hypertension) Sleep apnea Hypogonadism in male BPH (benign prostatic hyperplasia) Renal calculi CKD (chronic kidney disease) Right foot pain Surgical History Status post right foot surgery Family History Father No problems noted. Mother No problems noted. Social History Housing: House Alcohol intake: current Alcohol intake frequency: holidays/special occasions only Patient Tobacco Use Status: Former Tobacco user Current occupational status: employed Cognitive needs: No Hearing needs: No Vision needs: No Review of Systems Const All systems reviewed & are unremarkable except as noted in HPI and below Physical Exam Vital Signs: Last Vital Signs Temp 98.3 F 11/18/23 08:36 Pulse 85 11/18/23 08:36 BP 123/90 H 11/18/23 08:36 Pulse Ox 98 11/18/23 08:36 Oxygen Delivery Method Room Air 11/18/23 08:36 BMI result Body Mass Index 33.0 Const General: cooperative, healthy appearing, comfortable and no acute distress Orientation/consciousness: patient oriented x3 Limitations: no limitations HEENT Head: Yes normal to inspection Ears: hearing grossly normal bilaterally, external ears normal and TM's normal bilaterally General nose exam: Normal external nose present, Normal nares present and No nasal discharge present Face and sinus: Yes normal facial exam and Yes sinuses nontender Mouth: Normal oral and palatal mucosa present and moist mucous membranes Throat: Yes tonsils normal, Yes uvula midline and Yes posterior oropharynx abnormal (Erythema) Eyes General: appearance normal, both eyes and all related structures Neck Neck: Yes normal visual inspection Resp Effort & Inspection: normal respiratory effort, able to speak in complete sentences, Actively coughing, no respiratory distress, not tachypneic, no tripod positioning and no use of accessory muscles Auscultation: clear to auscultation bilaterally Cardio Jugular venous distension: no JVD Rate: regular rate Rhythm: regular rhythm Heart sounds: S1 normal heart sound present, S2 normal heart sound present, no click, no gallops, no murmurs and no rubs Skin General skin exam: no rashes or lesions noted, elasticity normal and turgor normal Neuro General: patient oriented x3 Extrem General: Yes normal to inspection and Yes no clubbing, cyanosis or edema Assessment & Plan Assessment & Plan (1) Upper respiratory tract infection: Code(s): J06.9 - Acute upper respiratory infection, unspecified Qualifiers: URI type: unspecified URI Qualified Code(s): J06.9 - Acute upper respiratory infection, unspecified Plan: Rapid strep test negative. Viral swab obtained to rule out Covid based on symptoms. Advised mask wearing while symptomatic and quarantine per current CDC guidelines. Reviewed at home support methods including hydration, humidification, vix vapor rub, sinus rinse. Discussed treatment with antiviral therapy for covid with paxlovid including appropriate use and side effects, and need to start medication within 5 day of symptom onset, preferably within 48 hours of symptom onset. Patient wishes to decline paxlovid. Advised follow up with worsening symptoms such as dyspnea at rest, which would require emergent evaluation. Plan See above for full details and plan. Orders: Orders SARS-CoV2/FLU/RSV Today J06.9 - Acute upper respiratory infection, unspecified Medications: New prednisone 40 mg (2 x 20 mg) PO DAILY 3 days 6 tabs 0RF Coding Level of Care Code Est Pt Level 3 (17333) Diagnoses Upper respiratory tract infection, unspecified type J06.9 URI type: unspecified URI
[2023-11-18 08:36] VITALS: BP 123/90; PULSE 85; TEMP 36.8; O2SAT 98; BMI 33.0
== END 2023-11-18 09:19 | disposition home or self-care (01) ==
PROVIDERS: PCP Nurse Practitioner Family; Visit Provider Registered Nurse
DX: Z13.9 Encounter for screening, unspecified (principal); J06.9 Acute upper respiratory infection, unspecified

== ENCOUNTER 2023-11-23 10:38 | Outpatient (AMB) | payer OTHER, SELFPAY ==
--- NOTE | 2023-11-23 11:04 | AM.OFFWIN_ITS ---
Intake Vital Signs 11/23/23 11:07 Weight 230 lb BP 140/100 H Blood Pressure Location Rt brachial Position Sitting Pulse 99 Pulse Source Pulse Oximeter Temp 98.3 F Temp Source Oral Pulse Oximetry (%) 96 Oxygen Delivery Method Room Air Intake Visit Reasons: EP sore that, running nose, headache Intake Note: Patient here for sore throat, cough has worsened and continues popping of right ear. Patient Tobacco Use Status: Former Tobacco user Allergies No Known Allergies [No Known Allergies*] Allergy (Verified 11/23/23 11:07) Do you need a note to return to daycare/school/sports/work: No HPI HPI Comments History of Present Illness Details Patient is a 43-year-old male complaining of 7 days of a headache, sore throat, nasal stuffiness, a dry cough including some coughing fits and ear popping on the right ear as well as fever and chills. He states his had a similar illness and was diagnosed with bronchitis and she got better in a few days but he seems to be getting worse. He states he was seen in this clinic 5 days ago and we gave him 3 days of prednisone which she took and seemed to be helping but still symptomatic. He is telling me that he has developed shortness of breaths. He denies a history of asthma or COPD but has used an inhaler in the past. He tells me he has been using Mucinex as well as NyQuil and DayQuil but he was still up all night coughing. [facility] Medical History (Updated 11/23/23 @ 11:33 by Yu Cuevas PA-C) Tubular adenoma of colon GERD (gastroesophageal reflux disease) Anxiety with depression PTSD (post-traumatic stress disorder) Lumbar stenosis HTN (hypertension) Sleep apnea Hypogonadism in male BPH (benign prostatic hyperplasia) Renal calculi CKD (chronic kidney disease) Right foot pain Surgical History Status post right foot surgery Family History Father No problems noted. Mother No problems noted. Social History Housing: House Alcohol intake: current Alcohol intake frequency: holidays/special occasions only Patient Tobacco Use Status: Former Tobacco user Current occupational status: employed Cognitive needs: No Hearing needs: No Vision needs: No Review of Systems Const All systems reviewed & are unremarkable except as noted in HPI and below Physical Exam Vital Signs: Last Vital Signs Temp 98.3 F 11/23/23 11:07 Pulse 99 11/23/23 11:07 BP 140/100 H 11/23/23 11:07 Pulse Ox 96 11/23/23 11:07 Oxygen Delivery Method Room Air 11/23/23 11:07 Const General: cooperative, healthy appearing, comfortable and no acute distress Orientation/consciousness: patient oriented x3 Limitations: no limitations HEENT Head: Yes normal to inspection Ears: hearing grossly normal bilaterally, external ears normal and TM's normal bilaterally General nose exam: Normal external nose present, Normal nares present and No nasal discharge present Face and sinus: Yes normal facial exam and Yes sinuses nontender Mouth: Normal oral and palatal mucosa present and moist mucous membranes Throat: Yes tonsils normal, Yes uvula midline and Yes posterior oropharynx abnormal (Erythema) Eyes General: appearance normal, both eyes and all related structures Neck Neck: Yes normal visual inspection Resp Effort & Inspection: normal respiratory effort, able to speak in complete sentences, Actively coughing, no respiratory distress, not tachypneic, no tripod positioning and no use of accessory muscles Auscultation: clear to auscultation bilaterally Cardio Rate: regular rate Rhythm: regular rhythm Heart sounds: normal S1 and S2 Skin General skin exam: no rashes or lesions noted Neuro General: patient oriented x3 Extrem General: Yes normal to inspection and Yes no clubbing, cyanosis or edema Assessment & Plan Assessment & Plan (1) Upper respiratory tract infection: Code(s): J06.9 - Acute upper respiratory infection, unspecified Qualifiers: URI type: unspecified URI Qualified Code(s): J06.9 - Acute upper respiratory infection, unspecified Plan: Patient is satting 96% on room air and feels short of breath so I will get a chest x-ray, otherwise his lungs were clear on exam and he is well-appearing. We will send an inhaler as well as Tessalon Perles cough drop. Antibiotic is pending read of the chest x-ray Plan See above Orders: Orders XR chest 2V Today R05.9 - Cough, unspecified Medications: New albuterol sulfate 90 mcg/actuation (Ventolin HFA) 2 puffs inhalation Q4-6H PRN 8.5 grams 0RF shortness of breath or wheezing benzonatate 200 mg PO Q8H PRN 14 caps 0RF cough Coding Level of Care Code Est Pt Level 4 (52384) Diagnoses Upper respiratory tract infection, unspecified type J06.9 URI type: unspecified URI
[2023-11-23 11:07] VITALS: BP 140/100; PULSE 99; TEMP 36.8; O2SAT 96
== END 2023-11-23 11:27 | disposition home or self-care (01) ==
PROVIDERS: PCP Nurse Practitioner Family; Visit Provider Physician Assistant
DX: J06.9 Acute upper respiratory infection, unspecified (principal)

== ENCOUNTER → 2023-11-23 10:38 | Outpatient (BNVA) | payer OTHER, SELFPAY | PROVIDERS: PCP Nurse Practitioner Family; Visit Provider Physician Assistant ==

== ENCOUNTER 2023-11-23 11:26 | Outpatient (REF) | payer OTHER, SELFPAY ==
--- NOTE | ~2023-11-23 | XR_ITS ---
EXAMINATION: XR CHEST CLINICAL INFORMATION: Cough COMPARISON: Chest radiograph 05/29/2021, chest CT 05/29/2021 TECHNIQUE: 2 views of the chest were obtained. FINDINGS: No significant abnormality is noted involving the heart, lungs, mediastinum, bony thorax or soft tissues. XR/XR chest 2V IMPRESSION: Unremarkable examination. Electronically signed by: Liu Monique MD 11/23/2023 03:26 PM EDT
== END 2023-11-23 11:27 | disposition home or self-care (01) ==
LOC: HO.HMGCX 11:26
PROVIDERS: PCP Nurse Practitioner Family; Visit Provider Physician Assistant
DX: R05.9 Cough, unspecified (principal)
CPT/HCPCS: 71046; 99212

== ENCOUNTER 2024-03-08 10:12 | Outpatient (REF) | payer OTHER, SELFPAY ==
--- NOTE | ~2024-03-08 | XR_ITS ---
EXAMINATION: XR ELBOW, RIGHT CLINICAL INFORMATION: M25.522 - Pain in RIGHT elbow COMPARISON: Right elbow 01/23/2019 TECHNIQUE: AP, lateral, and oblique views of the right elbow. FINDINGS: There is a very small tiny bone fragment anterior to the coronoid process of the ulna, new since the last exam 2018. Question small avulsion fracture versus loose body no additional bony or joint abnormality seen. There is no abnormal joint effusion. XR/XR elbow RT min 3V IMPRESSION: New small bone fragment anterior to the coronoid process question small avulsion fracture versus loose body. No abnormal joint effusion. Electronically signed by: Heri Troncoso MD 03/08/2024 11:49 AM EST
--- NOTE | ~2024-03-08 | XR_ITS ---
EXAMINATION: XR HAND, RIGHT CLINICAL INFORMATION: M79.644 - Pain in right finger(s) COMPARISON: None available. TECHNIQUE: PA, lateral, and oblique views of the right hand. FINDINGS: The bones and soft tissues are normal. No fracture. Alignment is anatomic. Joint spaces are maintained. No erosions or soft tissue calcifications. XR/XR hand RT 2V IMPRESSION: Unremarkable right hand. Electronically signed by: Heri Troncoso MD 03/08/2024 11:47 AM BONY
--- OUTSIDE RECORDS SUMMARY | 2024-03-08 12:50 | XMS_ITS | Clinical Summary ---
Author Organization [facility] Facility Address [address] [place] [address] Care Team Providers Care Bridal Stylist Sales Consultant Name Role Phone Unavailable Primary Care Provider [...]
--- OUTSIDE RECORDS SUMMARY | 2024-03-08 12:50 | XMS_ITS | Clinical Summary ---
Author Organization [facility] Address [address] [place] [address] Care Team Providers Care Plant Specialist Name Role Phone Elmo Moreno Primary Care Provider [phone] Allergies No known active allergies Medications Medication [...] Advance Directives For more information, please contact: [phone] Latest Code Status on File Code Status Date Activated Date Inactivated Comments Full Code 03/18/2020 12:11 PM 03/18/2020 9:28 PM This c ode status was ascertained in the following way: discussion with patient . Care Teams Plant Specialist Relationship Specialty Start Date End Date Elmo Moreno: [id number] [address] [facility] [place] [address] PCP - General Family Medicine 03/07/20
--- OUTSIDE RECORDS SUMMARY | 2024-03-08 12:50 | XMS_ITS | Clinical Summary ---
Author Organization [facility] it Address [address] [place] [address] Care Team Providers Care Community Relations Director Name Role Phone Elmo Moreno NP Primary [...] age to complete this topic Care Teams Community Relations Director Relationship Specialty Start Date End Date Elmo Moreno NP [address] [facility] [place], [place] PCP - General 05/15/22
== END 2024-03-08 10:13 | disposition home or self-care (01) ==
LOC: HO.HMGCX 10:12
PROVIDERS: PCP Nurse Practitioner Family; Visit Provider Physician Assistant
DX: M77.11 Lateral epicondylitis, right elbow (principal); M25.522 Pain in left elbow; M79.644 Pain in right finger(s); M65.331 Trigger finger, right middle finger; S43.421A Sprain of right rotator cuff capsule, initial encounter
CPT/HCPCS: 73080; 73120; 99212

== ENCOUNTER 2024-03-08 10:12 | Outpatient (AMB) | payer OTHER, SELFPAY ==
--- NOTE | 2024-03-08 10:28 | AM.OFFWIN_ITS ---
Intake Vital Signs 03/08/24 10:30 Weight 247 lb BP 150/100 H Blood Pressure Location Lt brachial Position Sitting Pulse 90 Pulse Source Pulse Oximeter Pulse Oximetry (%) 97 Oxygen Delivery Method Room Air Intake Visit Reasons: EP-rt arm pain Intake Note: Patient here for right arm pain that has been present for a couple of months. Patient Tobacco Use Status: Former Tobacco user Allergies No Known Allergies [No Known Allergies*] Allergy (Verified 03/08/24 10:31) Do you need a note to return to daycare/school/sports/work: Yes HPI HPI Comments History of Present Illness Details History of Present Illness - The patient is a 43 year old male pres enting with right elbow and hand pain and swelling. - The pain and associated symptoms have been present for several months, with significant worsening in recent days. - Denies trauma in the last few days as well as trauma when it began months ago. - Symptoms include swelling extending fr om the elbow to the hand, with the right middle finger locking, reduced hand strength, and sensory disturbances. 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 - Previously had right shoulder surgery and has ongoing issues with shoulder rotator cuff tears and was told the left will likely need to be done soon. - Current medications include naproxen, initially prescribed for chronic back pain, which has been ineffective for current symptoms. Physical Exam General: Cooperative, healthy appearing, comfortable, no acute distress and well developed Orientation: Patient oriented x3 Limitations: Reduced strength and sensation in the right hand Head: Normal to inspection Ears: Hearing grossly normal bilaterally Nose: Normal external nose present Face and sinus: Normal facial exam Eyes: Appearance normal, both eyes and all related structures Neck: Normal visual inspection and Yes full ROM Respiratory: Normal respiratory effort and able to speak in complete sentences. Skin: No rashes or lesions noted Neuro: Patient oriented x3 Extremities: as below [facility] Medical History (Updated 03/08/24 @ 11:10 by Yu Cuevas PA-C) Tubular adenoma of colon GERD (gastroesophageal reflux disease) Anxiety with depression PTSD (post-traumatic stress disorder) Lumbar stenosis HTN (hypertension) Sleep apnea Hypogonadism in male BPH (benign prostatic hyperplasia) Renal calculi CKD (chronic kidney disease) Right foot pain Surgical History Status post right foot surgery Family History Father No problems noted. Mother No problems noted. Social History Housing: House Alcohol intake: current Alcohol intake frequency: holidays/special occasions only Patient Tobacco Use Status: Former Tobacco user Current occupational status: employed Cognitive needs: No Hearing needs: No Vision needs: No Review of Systems Const All systems reviewed & are unremarkable except as noted in HPI and below Physical Exam Vital Signs: Last Vital Signs Pulse 90 03/08/24 10:30 BP 150/100 H 03/08/24 10:30 Pulse Ox 97 03/08/24 10:30 Oxygen Delivery Method Room Air 03/08/24 10:30 Extrem Right upper extremity: elbow/forearm Details: normal to inspection, tenderness Location: of the lateral epicondyle, swelling (slight) Location: of the lateral epicondyle, normal ROM and distal pulses intact; no unusual warmth, no abrasions, no lacerations, no ecchymosis and no deformity and Extremity exam: right hand (right middle finger clicks and locks with flexion) Details: normal capillary refill, 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 Current use of naproxen is advised to be discontinued to prevent potential gastrointestinal complications when taken with prednisone. He is also instructed to use a compression sleeve on the elbow and rest the arm as he has right chronic shoulder issues which may necessitate surgery soon, with the use of a sling provided for symptomatic relief. Should symptoms continue or deteriorate, further assessment through orthopedic referral and nerve studies may be required. The patient will be updated with x-ray findings and encouraged to communicate with their primary care physician regarding ongoing or unresolved symptoms. Patient was informed and verbally consented to the use of an ambient scribe for clinic note documentation during this visit. (2) Left elbow pain: Code(s): M25.522 - Pain in left elbow Plan: Right elbow and right hand x-rays are ordered to rule out additional structural problems. Likely trigger finger on the right middle digit. as above (3) Finger pain, right: Code(s): M79.644 - Pain in right finger(s) Plan: Right elbow and right hand x-rays are ordered to rule out additional structural problems. Likely trigger finger on the right middle digit. as above (4) Trigger finger of right hand: Code(s): M65.30 - Trigger finger, unspecified finger Qualifiers: Trigger finger location: middle finger Qualified Code(s): M65.331 - Trigger finger, right middle finger Plan: Right elbow and right hand x-rays are ordered to rule out additional structural problems. Likely trigger finger on the right middle digit. as above (5) Sprain of shoulder, right: Code(s): S43.401A - Unspecified sprain of right shoulder joint, initial encounter Qualifiers: Encounter type: initial encounter Shoulder sprain type: rotator cuff capsule Qualified Code(s): S43.421A - Sprain of right rotator cuff capsule, initial encounter Plan: as above Orders: Orders XR elbow RT min 3V Today M25.522 - Pain in left elbow XR hand RT 2V Today M79.644 - Pain in right finger(s) Medications: New prednisone 40 mg (2 x 20 mg) PO DAILY 10 tabs 0RF Coding Level of Care Code Est Pt Level 5 (93534) Diagnoses Lateral epicondylitis, right elbow M77.11 Left elbow pain M25.522 Finger pain, right M79.644 Trigger middle finger of right hand M65.331 Trigger finger location: middle finger Sprain of right rotator cuff capsule, initial encounter S43.421A Encounter type: initial encounter Shoulder sprain type: rotator cuff capsule
[2024-03-08 10:30] VITALS: BP 150/100; PULSE 90; O2SAT 97
--- OUTSIDE RECORDS SUMMARY | 2024-03-08 11:12 | XMS_ITS | Encounter Summary ---
Author Name [facility] Address [address] [place] [id number] Care Team Providers Care Top Executive Name Role Phone ELENA RODRIGUEZ Primary Care Provider Unavail able Selected Encounter This section includes the information on record at NH for the Encounter. Date/Time Encounter Type Encounter Description Reason Pro vider Source Mar 07, 2024 01:25 PM Outpatient Encounter TELEPHONE TRIAGE IHE Encounter Template Text not used by NH Plan of Treatment: Future Appointments (+ 6 months) and Future Tests (+/- 45 days) The Plan of Treatment section includes future care activities for the patient from all NH treatmentfacilities. This section includes future appointments and future orders which are active, pending or scheduled. Future Appointments This section includes appointments that were scheduled to occur 6 months from the date of the Encounter, up to a maximum of 20 appointments. The data comes from all NH treatment facilities. Appointment Date/Time Appointment Type Appointme nt Facility Name May 29, 2024 10:30 AM AMBULATORY - MEDICINE [facility] Social History: Smoking Status (Most current) and Tobacco Use (All prior to encounter date) This section includes the most current, and the historical, smoking and tobacco- related health factors from the [facility] facility where the Encounter took place. Current Smoking Status This section includes the most current smoking, or tobacco-related health factor, from the [facility] facility where the Encounter took place. Date/Time Current Smoking Status Comment Facil ity Mar 02, 2024 03:30 PM VA-TOBACCO USE FOR SUNG CIGARETTES [facility] Tobacco Use History This section includes a history of the smoking, or tobacco-related health factors, that were collected on or before the date of the Encounter. The data comes from the NH facility where the Encounter took place. Date/Time Smoking Status/Tobacco Use Comment F tess Mar 02, 2024 03:30 PM VA-TOBACCO USE FOR SUNG CIGARETTES [facility] [place] [facility] Encounter Notes: All associated encounter notes This section contains the clinical notes associated to the Encounter. Date/Time Encounter Note(s) Provider Source Mar 07, 2024 01:25 PM RN PROGRESS NOTE: LOCAL TITLE: CCC: CLINICAL TRIAGE STANDARD TITLE: RN PROGRESS NOTE DATE OF NOTE: MAR 07, 2024@13:25:39 ENTRY DATE: MAR 07, 2024@13:25:39 AUTHOR: HENNA PAGE COSIGNER: URGENCY: STATUS: COMPLETED Patient Demographics Patient Name: ELENA MARY Patient Primary [address]: [address] [place] [id number] Patient Primary Phone: [phone] Patient : 1980 Patient Age: 43 Current Location: home Call Back Number: verified Caller/Recipient Relation to Patient: Self Caller Name: ELENA MARY Triage Summary Conducted triage/discussed symptoms Pain Score: 10 (Severe Pain) Utilized the Triage Tool: Yes Chief Complaint: Finger Pain System WHEN: Now Nurse's Recommendation / WHEN: Now System WHERE: Emergency department Nurse's Recommendation / WHERE: ED Other Patient Disposition Patient/Caregiver agrees to plan of care: Yes Patient WHERE: ED Other Patient WHEN: Now Other - Patient When Disposition: [facility] [address] [place] [phone] Get directions on [employer] Main number: [phone] Nursing Plan and Disposition Referred patient to higher level of care Instructed to go to Emergency Room (ER) Advised of Financial Disclaimer: Patient advised that recommendation for care provided during the call does not constitute an approval or authorization for payment by the NH or its staff. Patient advised to report a community ED visit to the national Office of Community Care at within 72 hours. Other Description: given [facility] national number to call within 72 hours Nurse Summary Nurse Summary: Douglas is calling to state that he has had severe pain in right arm and hand but especially to his middle finger which this weekend ended up locking up on him for the first time and he had to force it to straighten out. Douglas states at times his finger is swollen but also his whole hand can be swollen and the pain can radiate back to his elbow. Douglas states he had broken this finger in the service and that it had healed funny at that time and was told that they saw arthritis in the area. Douglas at times says his finger hurts worse up to a level of 10 when he grabs something, but is often at a level 6 when he does not move it. Also feels some numbness to this finger. Discussed risk of infection to his joint and need to be seen at local hospital ER in [place]. Does have [employer] for back up insurance also. Clinical Contact Center Codes Clinic/Location: V[facility] [address] [facility] RN Decision Support System Output: Triage Complete Triage Date: 03/07/2024, 01:16 PM Triage Note: Decision Support Tool Used: [facility] Phone Triage 07 Mar 2024 18:14:54 +0000 [facility] Demographics 43 y/o Male Results CC: Finger Pain Software suggested: Now Software suggested follow-up location: Emergency department Values and Measures Duration of CC: 1 Months Positive Responses HPI: finger pain, severe HPI: finger swelling, with finger pain Negative Responses Denies: HPI: finger erythema Denies: HPI: finger injury, within past 2 days Denies: HPI: fingernail pain Denies: HPI: periungual pain, finger Denies: PMH: gout Denies: PMH: rheumatoid arthritis Denies: PMH: systemic lupus erythematosus IMPORTANT: This note was created by [facility] Clinical Contact Center staff. Please do not alert the staff member by adding them as a signer for future communications. Alerts are not monitored by this user. /abisai/ HENNA SANDERSON CCC, RN Signed: 03/07/2024 13:25 Receipt Acknowledged By: 03/07/2024 14:07 /abisai/ JAC MEYERS, FRAN REGISTERED NURSE 03/07/2024 15:54 /abisai/ HENNA LAI LPN, LPN [facility]
--- OUTSIDE RECORDS SUMMARY | 2024-03-08 11:12 | XMS_ITS ---
Author Name [facility] Organization [facility] [place] Address [address] [place] [id number] Care Team Providers Care Pole Inspector Name Role Phone ELENA RODRIGUEZ Primary Care Provider Unavail able Selected Encounter This section includes the information on record at [place] for the Encounter. Date/Time Encounter Type Encounter Description Reason Pro vider Source Mar 02, 2024 05:46 PM Outpatient Encounter TELEPHONE PRIMARY CARE IHE Encounter Template Text not used by [place] Plan of Treatment: Future Appointments (+ 6 months) and Future Tests (+/- 45 days) The Plan of Treatment section includes future care activities for the patient from all [place] treatmentfacilities. This section includes future appointments and future orders which are active, pending or scheduled. Future Appointments This section includes appointments that were scheduled to occur 6 months from the date of the Encounter, up to a maximum of 20 appointments. The data comes from all [place] treatment facilities. Appointment Date/Time Appointment Type Appointme nt Facility Name May 29, 2024 10:30 AM AMBULATORY - MEDICINE [facility] Vital Signs: All taken on the encounter date This section contains inpatient and outpatient Vital Signs collected on the date of the Encounter. Date/Time Temperature Pulse Blood Pressure Respiratory Rate SP02 Pain Height Weight Body Mass Index Source Mar 02, 2024 05:48 PM 144/100 [facility] [place] [facility] Mar 02, 2024 03:33 PM 97.6 85 144/100 16 96 0 70 245 35 [facility] Social History: Smoking Status (Most current) and Tobacco Use (All prior to encounter date) This section includes the most current, and the historical, smoking and tobacco- related health factors from the [place] facility where the Encounter took place. Current Smoking Status This section includes the most current smoking, or tobacco-related health factor, from the [place] facility where the Encounter took place. Date/Time Current Smoking Status Comment Lukasz parikh Mar 02, 2024 03:30 PM VA-TOBACCO USE FOR SUNG CIGARETTES [facility] Tobacco Use History This section includes a history of the smoking, or tobacco-related health factors, that were collected on or before the date of the Encounter. The data comes from the [place] facility where the Encounter took place. Date/Time Smoking Status/Tobacco Use Comment F tess Mar 02, 2024 03:30 PM VA-TOBACCO USE FOR SUNG CIGARETTES [facility] Encounter Notes: All associated encounter notes This section contains the clinical notes associated to the Encounter. Date/Time Encounter Note(s) Provider Source Mar 02, 2024 06:31 PM MEDICATION MGT NOTE: LOCAL TITLE: MEDICATION RECONCILIATION STANDARD TITLE: MEDICATION MGT NOTE DATE OF NOTE: MAR 02, 2024@18:31 ENTRY DATE: MAR 02, 2024@18:32:05 AUTHOR: MODE BHATT COSIGNER: URGENCY: STATUS: COMPLETED Vet was given an appt with: Rhett Rodriguez PA-C on 05/29/24@ 1030 === F: Medication reconciliation D: Vet says that he is on the following Medications: Active and Recently Outpatient Medications (including Supplies): Active Non-VA Medications Status 1) Non-VA HCTZ 25MG/LOSARTAN 100MG TAB 1 TABLET BY MOUTH ACTIVE 2) Non-VA LORAZEPAM 0.5MG TAB 0.5MG BY MOUTH ACTIVE 3) Non-VA NAPROXEN 500MG TAB 500MG BY MOUTH ACTIVE 4) Non-VA OMEPRAZOLE 20MG EC CAP 20MG BY MOUTH EVERY MORNING 30 ACTIVE MINUTES BEFORE BREAKFAST Indication: FOR GASTROESOPHAGEAL REFLUX DISEASE 5) Non-VA TESTOSTERONE CYP 200MG/ML 1ML IN OIL 1ML (200MG) ACTIVE INTRAMUSCULARLY ===== Mt says that he has the following Medical Hx: 1. Sinusitis 2. Essential (primary) hypertension 3. Plantar fasciitis left 4. Back pain Lumbar area 5. Other hammer toe(s) (acquired), right foot 6. Obesity 7. Nicotine dependence 8. Myalgia and myositis 9. Mononeuritis lower limb 10. Irregular sleep-wake rhythm 11. Insomnia 12. Gout 13. Gastro-Esophageal Reflux Disease 14. Erectile Dysfunction 15. Dermatophytosis tinea cruris 16. Contact Dermatitis 17. Degenerative Joint Disease of Shoulder Region 18. Anxiety 19. Ankle joint pain 20. Stage 3a chronic kidney disease 03/02/2021 21. Renal stone ===== Mt says that he has the following community Providers: 1. Enma YOUNG General Work Place: [address] [place] [address] Tel: [facility] 2. Elmo Moreno NP [address] [place], [place] PCP - General [facility] 3. [facility] Date(s): 09/10/21 - 10/10/[facility] [address] [place] [address]- 4. [facility] Date(s): 07/29/21 - 08/05/21 [facility] [address] [place] [address] Drive, [address] [place] [address]- Attending Physician: Cain Townsend MD Referring Physician: Elmo Moreno NP ====== Vet says that he has allergies or adverse effects to the following Medications: 1. Vet has No known Drug allergies PDMP Providers Total Providers: 6 Name Address [facility] State Zipcode Phone 1. KHANG Naik [address] [facility] [address] [facility] [address] 2. Petty Butts PA-C [address] [facility] [address] - 3. Elmo Moreno [address] [place] [address] [place] [address] - 4. Zach Chua [address] [place] [address] Dr Chavira [address] [facility] [address] - 5. Kenton Randall [address] [place] [address] Dr Fan [address] [place] [address] - 6. Parker Walters [address] [facility] [address] [facility] [address] - /es/ MODE BHATT MSN Ed., BSN ORGANIC SECTION TECHNICAL LEAD NURSE Signed: 03/03/2024 09:21 Receipt Acknowledged By: 03/03/2024 09:23 /es/ JAC MEYERS, RN REGISTERED NURSE 03/07/2024 11:38 /es/ JUAN J SALAZAR LPN LPN 03/05/2024 08:08 /abisai/ Elena Rodriguez PA-C STAFF PHYSICIAN CLOTH DYEING RANGE TENDER MODE BHATT CNTRL [facility] [place] [facility] Mar 02, 2024 06:30 PM LETTERS: LOCAL TITLE: PATIENT LETTER (B) STANDARD TITLE: LETTERS DATE OF NOTE: MAR 02, 2024@18:30 ENTRY DATE: MAR 02, 2024@18:31:02 AUTHOR: MODE BHATTER: URGENCY: STATUS: [place] [address] [phone] * * Date: 03/03/24 Dear Hardesty: Thank you for choosing the [facility] [place] [facility]. Please be a few minutes early to this appt- about 15 mins. We would like to update your demographic information. To schedule or if you would like more information regarding [place] health care benefits, please call toll free at [phone]), visit the [place] website at [email or web address], or contact your local [place] Medical Center. Welcome to patient aligned care team (Pact Team 3) with (Dr. Rhett Rodriguez PA-C). Prior to meeting you at your new patient appointment we are requesting some of your past medical history so that we may provide you with the exceptional care you deserve. Please note that it is very helpful to have these documents prior to your appointment date as the more information we have the better we will be able to meet your needs: * Last History & Physical * Immunization records * Medication list * Diagnosis list * Most recent labs * Diagnostic screens (Colonoscopy, Abdominal Aortic Aneurysm screen, Mammograms, PAPS, etc.) We have scheduled the following appt with you to see your new PCP: Your appt is scheduled for (05/29/24@1030)- This appt will be about an hour long appt which will give you and your Provider a chance to get to know each other. We have noticed that you are due to receive the following Immunizations: 1. Covid 19 vaccine 2. Influenza Vaccine- after 10/30 You may either bring your records with you to your scheduled appointment, or drop them off ahead of your appointment or you may have them faxed to [phone] ATTN: MATTY/MIRTA/PACT- 3Dorota If you have any questions, please do not hesitate to contact the Department of 's Affairs call center at Ext [phone]. Just so that you know if you're feeling sick we have sick call hours at the [facility], and the [facility]- Wed thru Wednesday 08-1530- first come first serve- walk-in basis. [facility] also has sick call hours Wed- Wed- 1100-12N, and 3P-4P- first come first serve basis- no appt needed. You can utilize our sick call system once you have seen the PCP for the first appt. Audiology Phone number- [phone]- Ext [phone] Optometry Phone Number- [phone]- Ext [phone] Mental Health Clinic- [phone] Ext- [phone] Eligibility/Enrollment- [phone]- Ext-[phone] Veterans Rep [phone] Ext [phone] [facility] [phone] [facility] Transportation [phone] Ext [phone], or,[phone] [employer] [phone] ( Call within 72hrs of being seen in an acute care setting Sincerely. [facility] [address] [place] [address] Phone: Ext [phone] Upcoming Appointments: 05/29/24@1030- MATTY/NO/CJAT-7-CkpadlpyvDorota Bhatt MSN Ed., BSN, RN [facility] [address] [place] [address] [address] [place] [address] [place] [address] - Ext [phone] [facility] [address] [place] [address] [place] [address] # [phone] [place] [address] JEANNINEWALTMODE Brenda [place] [facility] Mar 02, 2024 06:29 PM LETTERS: LOCAL TITLE: PATIENT LETTER (B) STANDARD TITLE: LETTERS DATE OF NOTE: MAR 02, 2024@18:29 ENTRY DATE: MAR 02, 2024@18:29:17 AUTHOR: MODE BHATT EXP COSIGNER: URGENCY: STATUS: COMPLETED [facility] [address] [address] * * Date: 03/03/24 Dear : Elena Thank you for choosing the [facility] of [facility] [place] [facility]. The Whole Health Program aims to support you in pursuing what matters most to you, and includes services that support your values and overall wellness. This includes the following offerings: * Yoga * Acupuncture * Marvin Acupuncture for Acute Pain (offered weekly; drop-in or scheduled) * Individual health coaching * Oven Worker * Biofeedback for Hypertension and Anxiety * Guided Imagery Group * Meditation Group * Cancer Support Group * Stress Management Group ( Stress Less ) The following require no referral from a provider, and can be initiated by you at any time: * Yoga * Meditation * Marvin Acupuncture * Cancer Support Group * Individual Health Coaching * Stress Management Group ( Stress Less ) If interested in any of the above offerings, please reach out to the Whole Health Team at ext. [phone]. To schedule consult-required services, or if you would like more information regarding [place] health care benefits, please call toll free at [phone]), visit the [place] website at [email or web address].gov/healthbenefits, or contact your local [place] Medical Center. If you have any questions, please do not hesitate to contact the Department of [facility] call center. Sincerely. Dr. Jodi Bailey [facility] and Integrated [employer] [facility] Direct JEANNINEMODE GODOY Brenda [place] [facility] Mar 02, 2024 05:46 PM PREVENTIVE MEDICINE NURSING NOTE: LOCAL TITLE: CLINICAL REMINDERS/NURSING STANDARD TITLE: PREVENTIVE MEDICINE NURSING NOTE DATE OF NOTE: MAR 02, 2024@17:46 ENTRY DATE: MAR 02, 2024@17:46:26 AUTHOR: MODE BHATT EXP COSIGNER: URGENCY: STATUS: COMPLETED Advance Directive Screen MH AD: Patient does not have an Advance Directive completed and is requesting more information. The patient received education about Advance Directives and written notification of his/her rights. Vet was sent an advanced directive and was asked to fill out and bring in for PCP appt. HTN Assess for Elevated BP>=140/90: Repeat blood pressure: 144/100 The patient was counseled on the importance of regular exercise and/or physical activity in the control of blood pressure. The patient was instructed to try to participate in 120 minutes of aerobic exercise per week if possible and that any increase in physical activity may be useful in controlling blood pressure. The patient was counseled on the importance of diet and weight loss/ control in the regulation of blood pressure. The patient was counseled to reduce their weight to within 10 percent of their ideal body weight. The possible improvement in blood pressure control with even 5 to 10 pounds of weight loss was reviewed. The contribution of dietary sodium to elevated blood pressure was reviewed. The patient was counseled to have a goal sodium intake of 1500mg per day, with no more than 2300mg per day. The patient was counseled that a diet low in dietary saturated and trans fats is beneficial in lowering blood pressure. The patient was counseled that a diet rich in fresh fruits, vegetables and whole grains is beneficial in lowering blood pressure. The patient was counseled to limit alcohol intake to no more than 2 drinks per day for men and 1 drink per day for women. BMI>30/>24.99 High Risk: At this visit, the health risks of obesity were reviewed and discussed with the Hardesty, and the benefits of a weight management treatment program, such as MOVE! was discussed and offered to the Hardesty. New Height and/or Weight Measurement just entered. HT: 70 inches WT: 245 lbs BMI: 35.23 Tdap Immunization: Td/Tdap given previously - written records available The patient has previously received the Tetanus, Diphtheria vaccine (Td). Documented: TD(ADULT) UNSPECIFIED FORMULATION Historical Date Administered: Jun 01, 2003 Rotor Coil Taper: [employer] PASTEUR Lot: [id number] Exp Date: Unknown Outside Location: Outside Healthcare Provider Information Source: FROM OTHER REGISTRY Comment: tetanus and diphtheria toxoids, adsorbed, preservative free, for adult use (2 Lf of tetanus toxoid and 2 Lf of diphtheria toxoid) Documented: MENINGOCOCCAL MPSV4 Historical Date Administered: Jun 01, 2003 Rotor Coil Taper: SANOFI PASTEUR Lot: [id number] Exp Date: Unknown Outside Location: Outside Healthcare Provider Information Source: FROM OTHER REGISTRY Comment: meningococcal polysaccharide vaccine (MPSV4) Documented: POLIO, UNSPECIFIED FORMULATION Historical Date Administered: Jun 01, 2003 Lot: [id number] Exp Date: Unknown Outside Location: Outside Healthcare Provider Information Source: FROM OTHER REGISTRY Comment: San[employer] Paste[employer] Documented: HEP A-HEP B Historical Date Administered: Jun 06, 2003 Series: Series 1 Lot: [id number] Exp Date: Unknown Outside Location: Outside Healthcare Provider Information Source: FROM OTHER REGISTRY Comment: hepatitis A and hepatitis B vaccine Documented: HEP A-HEP B Historical Date Administered: July 07, 2003 Series: Series 2 Lot: [id number] Exp Date: Unknown Outside Location: Outside Healthcare Provider Information Source: FROM OTHER REGISTRY Comment: hepatitis A and hepatitis B vaccine Documented: HEP A-HEP B Historical Date Administered: Dec 07, 2003 Series: Series 3 Lot: [id number] Exp Date: Unknown Outside Location: Outside Healthcare Provider Information Source: FROM OTHER REGISTRY Comment: hepatitis A and hepatitis B vaccine Documented: ANTHRAX VACCINE, UNSPECIFIED Historical Date Administered: Feb 21, 2007 Series: Series 1 Lot: [id number] Exp Date: Unknown Outside Location: Outside Healthcare Provider Information Source: FROM OTHER REGISTRY Documented: ANTHRAX VACCINE, UNSPECIFIED Historical Date Administered: Mar 10, 2007 Series: Series 2 Lot: [id number] Exp Date: Unknown Outside Location: Outside Healthcare Provider Information Source: FROM OTHER REGISTRY Documented: ANTHRAX VACCINE, UNSPECIFIED Historical Date Administered: Mar 30, 2007 Series: Series 3 Lot: [id number] Exp Date: Unknown Outside Location: Outside Healthcare Provider Information Source: FROM OTHER REGISTRY Documented: ANTHRAX VACCINE, UNSPECIFIED Historical Date Administered: Sep 12, 2007 Series: Series 4 Lot: [id number] Exp Date: Unknown Outside Location: Outside Healthcare Provider Information Source: FROM OTHER REGISTRY Documented: ANTHRAX VACCINE, UNSPECIFIED Historical Date Administered: Mar 27, 2008 Series: Series 5 Lot: [id number] Exp Date: Unknown Outside Location: Outside Healthcare Provider Information Source: FROM OTHER REGISTRY Documented: ANTHRAX VACCINE, UNSPECIFIED Historical Date Administered: Sep 05, 2023 Series: Series 6 Lot: [id number] Exp Date: Unknown Outside Location: Outside Healthcare Provider Information Source: FROM OTHER REGISTRY Documented: TYPHOID, VICPS Historical Date Administered: Mar 09, 2011 Series: Series 3 Rotor Coil Taper: SANOFI PASTEUR Lot: [id number] Exp Date: Unknown Outside Location: Outside Healthcare Provider Information Source: FROM OTHER REGISTRY Comment: typhoid Vi capsular polysaccharide vaccine Documented: ANTHRAX VACCINE, UNSPECIFIED Historical Date Administered: Mar 09, 2011 Series: Series 6 Lot: [id number] Exp Date: Unknown Outside Location: Outside Healthcare Provider Information Source: FROM OTHER REGISTRY Documented: TDAP Historical Date Administered: May 22, 2011 Series: (None selected) Lot: [id number] Exp Date: Unknown Outside Location: Outside Healthcare Provider Information Source: FROM OTHER REGISTRY Comment: tetanus toxoid, reduced diphtheria toxoid, and acellular pertussis vaccine, adsorbed Documented: ANTHRAX VACCINE, UNSPECIFIED Historical Date Administered: Aug 16, 2012 Series: Series 7 Lot: [id number] Exp Date: Unknown Outside Location: Outside Healthcare Provider Information Source: FROM OTHER REGISTRY Documented: TYPHOID, VICPS Historical Date Administered: June 20, 2017 Rotor Coil Taper: SANOFI PASTEUR Lot: [id number] Exp Date: Unknown Outside Location: Outside Healthcare Provider Information Source: FROM OTHER REGISTRY Comment: typhoid Vi capsular polysaccharide vaccine Documented: COVID-19 (MODERNA), MRNA, LNP-S, PF, 100 MCG/0.5ML DOSE OR 50 MCG/0.25ML DOSE Historical Date Administered: Apr 24, 2020 Series: Series 1 Rotor Coil Taper: [employer] Lot: [id number] Exp Date: Unknown Outside Location: Outside Healthcare Provider Information Source: FROM OTHER REGISTRY Comment: SARS-COV-2 (COVID-19) vaccine, mRNA, spike protein, LNP, preservative free, 100 mcg or 50 mcg dose Documented: COVID-19 (MODERNA), MRNA, LNP-S, PF, 100 MCG/0.5ML DOSE OR 50 MCG/0.25ML DOSE Historical Date Administered: May 25, 2020 Series: Series 2 Rotor Coil Taper: [employer] Lot: [id number] Exp Date: Unknown Outside Location: Outside Healthcare Provider Information Source: FROM OTHER REGISTRY Comment: SARS-COV-2 (COVID-19) vaccine, mRNA, spike protein, LNP, preservative free, 100 mcg or 50 mcg dose Documented: TDAP Historical Date Administered: Apr 24, 2021 Series: Series 2 Rotor Coil Taper: Telly PASTEUR Lot: [id number] Exp Date: Unknown Outside Location: Outside Healthcare Provider Information Source: FROM OTHER REGISTRY Comment: tetanus toxoid, reduced diphtheria toxoid, and acellular pertussis vaccine, adsorbed /es/ MODE BHATT MSN Ed., BSN ORGANIC SECTION TECHNICAL LEAD NURSE Signed: 03/03/2024 08:46 MODE BHATT CNTRL [facility]
--- OUTSIDE RECORDS SUMMARY | 2024-03-08 11:12 | XMS_ITS ---
Author Name [facility] Organization [facility] [place] Address [address] [place] [id number] Care Team Providers Care Instrument Adjuster Name Role Phone ELENA CARABALLO Primary Care Provider Unavail able Selected Encounter This section includes the information on record at [place] for the Encounter. Date/Time Encounter Type Encounter Description Reason Provider Source Mar 02, 2024 03:30 PM OFFICE O/P NEW MOD 45 MIN PRIMARY CARE/MEDICINE ICD-10-CM I10 Essential (primary) hypertension GUY CARABALLO IHE Encounter Template Text not used by [place] Assessments - Encounter Diagnoses This section includes the primary and secondary diagnoses documented for the Encounter. Date/Time Primary/Secondary Diagnosis Diagnosis Name Provider Source Mar 02, 2024 05:44 PM PRIMARY Essential (primary) hypertension [facility] [place] [facility] Plan of Treatment: Future Appointments (+ 6 months) and Future Tests (+/- 45 days) The Plan of Treatment section includes future care activities for the patient from all [place] treatmentfacilities. This section includes future appointments and future orders which are active, pending or scheduled. Future Appointments This section includes appointments that were scheduled to occur 6 months from the date of the Encounter, up to a maximum of 20 appointments. The data comes from all [place] treatment facilities. Appointment Date/Time Appointment Type Appointme nt Facility Name May 29, 2024 10:30 AM AMBULATORY - MEDICINE [facility] [place] [facility] Vital Signs: All taken on the encounter date This section contains inpatient and outpatient Vital Signs collected on the date of the Encounter. Date/Time Temperature Pulse Blood Pressure Respiratory Rate SP02 Pain Height Weight Body Mass Index Source Mar 02, 2024 05:48 PM 144/100 [facility] Mar 02, 2024 03:33 PM 97.6 85 144/100 16 96 0 70 245 35 [facility] Social History: Smoking Status (Most current) and Tobacco Use (All prior to encounter date) This section includes the most current, and the historical, smoking and tobacco- related health factors from the [place] facility where the Encounter took place. Current Smoking Status This section includes the most current smoking, or tobacco-related health factor, from the [place] facility where the Encounter took place. Date/Time Current Smoking Status Comment Facil ity Mar 02, 2024 03:30 PM VA-TOBACCO USE FOR SUNG CIGARETTES [facility] Tobacco Use History This section includes a history of the smoking, or tobacco-related health factors, that were collected on or before the date of the Encounter. The data comes from the [place] facility where the Encounter took place. Date/Time Smoking Status/Tobacco Use Comment F acility Mar 02, 2024 03:30 PM VA-TOBACCO USE FOR SUNG CIGARETTES [facility] Encounter Notes: All associated encounter notes This section contains the clinical notes associated to the Encounter. Date/Time Encounter Note(s) Provider Source Mar 02, 2024 04:23 PM ACCOUNTING OF DISCLOSURES NOTE: LOCAL TITLE: STATE PRESCRIPTION DRUG MONITORING PROGRAM STANDARD TITLE: ACCOUNTING OF DISCLOSURES NOTE DATE OF NOTE: MAR 02, 2024@16:23:34 ENTRY DATE: MAR 02, 2024@16:23:34 AUTHOR: ELENA CARABALLO EXP COSIGNER: URGENCY: STATUS: COMPLETED This PDMP query was submitted by Elena Caraballo. The clinical justification for this PDMP query is to review controlled substances prescribed outside of the [place], and any additional information that may become available, as an important component of standard clinical care, and in accordance with [facility] policy. Patient information was shared with the PDMP [place]. Prescription(s) filled outside the [facility] in the last 90 days are noted. However, they do not raise significant safety concerns and do not influence the treatment plan at this time. /abisai/ Elena Caraballo PA-C STAFF PHYSICIAN INSURANCE COUNSEL Signed: 03/02/2024 17:49 ELENA CARABALLO [facility] Mar 02, 2024 04:22 PM H & P NOTE: LOCAL TITLE: 10-10M/PHYSICIAN/MID-LEVEL (NON-TEMPLATE) STANDARD TITLE: H & P NOTE DATE OF NOTE: MAR 02, 2024@16:22 ENTRY DATE: MAR 02, 2024@16:22:13 AUTHOR: ELENA CARABALLO COSIGNER: URGENCY: STATUS: COMPLETED CC: 43 year old MALE here to establish pcp......amenable to Co- management. Today, his CC is......... He would like a second opinion on bilateral shoulder pain, surgery right, years ago, never had MRI or surgery on left. last seen at [facility] about 2022. Nursing notes reviewed and appreciated. He has had SI injection by Dr Mckoy with IV SEDATION. We discuss perhaps organizing this here by his taking an extra oral benzo but he declines, preferring IV sedation. Htn, I write down his numbers for him to review, take his cuff to appts, d/w with DR Moreno. I think this needs more attention. Drug allergies: Patient has answered NKA Local PCP:Tiffanie. Consultants: Name Address [facility] Zipcode Phone KHANG Naik [address] [facility] [address] [facility] [address] Parker Walters [address] [facility] [address] [facility] [id number] - Petty Butts PA-C [address] [facility] [address] [facility] [address] - Kenton Randall [address] [place] [address] [address] Chavira [address] [place] [id number] - Elmo Moreno [address] [facility] [place] [address] -PCP Zach Chua [address] [place] [address] Dr Chavira 204Urology for the Nahomy Mckoy for back injections. Vision care: Last exam:this year. Dental care: Last exam:...Hygiene discussed. Low cost local alternatives for dental care discussed.Has insurance, he will check eligibilty here. Hearing:Conservation discussed. not needed. VA and Non VA meds were reconciled with the patient who left with a corrected copy. See medication page for details. Active and Recently Outpatient Medications (including Supplies): [...] 1ML IN OIL 1ML (200MG) ACTIVE INTRAMUSCULARLY ROS: Denies rashes, chest pain, sob/[place]. No dizziness, nausea, vomiting or diarrhea. No blood in stool or urine. Pt has been eating, drinking, voiding and stooling in his normal fashion. Denies falls or excessive fall hazards in the home. Past Surgical History:right foot, injured in a'[place], nerve transposition, Right shoulder surgery Colonoscopy:[place], 'small things' EGD:at the same time. Problem List - Active - NONE FOUND PFSH: FH: Noncontributory (patient denies FH of Glaucoma, BRCA, Prostate or Colon cancer).an uncle had colon cancer. History: USaf, Work status: Living arrangements: HAMMER TOE 0% SC TINNITUS 10% SC SLEEP APNEA SYNDROMES 50% SC LIMITATION OF MOTION, THUMB 10% SC LIMITED FLEXION OF KNEE 10% SC LIMITATION OF MOTION, INDEX OR LONG FINGER 10% SC LIMITATION OF MOTION, INDEX OR LONG FINGER 10% SC LIMITATION ON MOTION, RING OR LITTLE FINGER 0% SC IMPAIRED HEARING 0% SC LIMITATION OF MOTION, INDEX OR LONG FINGER 10% SC SERVICE CONNECTED % - 90 Access to Rxs, eye, ear and dental care as well as the question 'what do I do if I get sick between visits' discussed. PE: General: Pt is appropriately dressed, good eye contact. 97.6 F [36.4 C] (03/02/2024 15:33) 85 (03/02/2024 15:33) 16 (03/02/2024 15:33) 144/100 (03/02/2024 15:33) 0 (03/02/2024 15:33) 70 in [177.8 cm] (03/02/2024 15:33) 245 lb [111.13 kg] (03/02/2024 15:33) BMI: 35.2 TARGET HR: 85%=149 70%=123 Neuro: aox3, good historian, mood/affect appropriate. HEENT: nc/at, SKIN: tatts. Cor; RRR, nl s1,2 without murmurs. LUNGS: Clear to auscultation bilaterally. Extremities: full active range of motion. Assessment/Plan: 1.Bilateral shoulder pain. Please obtain PCP records, colonoscopy, labs, sleep study and shots from [facility] and ortho records from [facility], then have me review and consider Plain films and PMR consult here in house. /abisai/ Elena Caraballo PA-C STAFF PHYSICIAN INSURANCE COUNSEL Signed: 03/02/2024 17:44 Receipt Acknowledged By: 03/03/2024 10:13 /abisai/ ALEXANDER HOWARD WAREHOUSE ENGINEERELENA [facility] Mar 02, 2024 04:13 PM ACCOUNTING OF DISCLOSURES NOTE: LOCAL TITLE: STATE PRESCRIPTION DRUG MONITORING PROGRAM STANDARD TITLE: ACCOUNTING OF DISCLOSURES NOTE DATE OF NOTE: MAR 02, 2024@16:13:26 ENTRY DATE: MAR 02, 2024@16:13:26 AUTHOR: ELENA CARABALLO EXP COSIGNER: URGENCY: STATUS: COMPLETED This PDMP query was submitted by Elena Caraballo. The clinical justification for this PDMP query is to review controlled substances prescribed outside of the [place], and any additional information that may become available, as an important component of standard clinical care, and in accordance with [facility] policy. Patient information was shared with the PDMP [place] [place]. Prescription(s) filled outside the [facility] in the last 90 days are noted. However, they do not raise significant safety concerns and do not influence the treatment plan at this time. /anne-marie Caraballo PA-C STAFF PHYSICIAN INSURANCE COUNSEL Signed: 03/04/2024 18:45 ELENA CARABALLO [facility] Mar 02, 2024 03:36 PM PREVENTIVE MEDICINE NURSING NOTE: LOCAL TITLE: CLINICAL REMINDERS/NURSING STANDARD TITLE: PREVENTIVE MEDICINE NURSING NOTE DATE OF NOTE: MAR 02, 2024@15:36 ENTRY DATE: MAR 02, 2024@15:36:09 AUTHOR: ALEXANDER HOWARDIGNER: URGENCY: STATUS: COMPLETED Suicide Screen: C-SSRS Screening [place] Suicide Severity Rating Scale (C-SSRS) screener 1. Over the past month, have you wished you were or wished you could go to sleep and not wake up? No 2. Over the past month, have you had any actual thoughts of killing yourself? No 3. Over the past month, have you been thinking about how you might do this? Response not required due to responses to other questions. 4. Over the past month, have you had these thoughts and had some intention of acting on them? Response not required due to responses to other questions. 5. Over the past month, have you started to work out or worked out the details of how to kill yourself? Response not required due to responses to other questions. 6. If yes, at any time in the past month did you intend to carry out this plan? Response not required due to responses to other questions. 7. In your lifetime, have you ever done anything, started to do anything, or prepared to do anything to end your life (for example, collected pills, obtained a gun, gave away valuables, went to the roof but didn't jump)? No 8. If YES, was this within the past 3 months? Response not required due to responses to other questions. Homelessness/Food Insecurity Screen: In the past 2 months, have you been living in stable housing that you own, rent, or stay in as part of a household? Yes - Living in stable housing. Are you worried or concerned that in the next 2 months you may NOT have stable housing that you own, rent, or stay in as part of a household? No - Not worried about housing near future [employer] reports the following: Within the past 12 months, you worried whether your food would run out before you got money to buy more. Never true Within the past 12 months, the food you bought just didn't last and you didn't have money to get more. Never true Avg Risk Colorectal Cancer Screen: AVERAGE RISK colorectal cancer screening is due based on information available to this clinical reminder CRC screen completed elsewhere and waiting for results. Results expected: Colonoscopy Comment: [facility] MST Screening: Patient denies experiencing sexual trauma (MST). Preferred Language: What is your, or your caregiver's preferred language for healthcare? Preferred Language: Pashto PTSD Screening: PC-PTSD-5 A PTSD screening test (PC-PTSD-5) was negative (score=0). IN THE PAST MONTH, have you ever had any experience that was so frightening, horrible or traumatic. For example: A serious accident or fire a physical or sexual assault or abuse An earthquake or flood A war Seeing someone be killed or seriously injured Having a loved one through homicide or suicide 1. Have you ever experienced this kind of event? NO 2. Had nightmares about the event(s) or thought about the event(s) when you did not want to? Response not required due to responses to other questions. 3. Tried hard not to think about the event(s) or went out of your way to avoid situations that reminded you of the event(s)? Response not required due to responses to other questions. 4. Been constantly on guard, watchful, or easily startled? Response not required due to responses to other questions. 5. [place] numb or detached from people, activities, or your surroundings? Response not required due to responses to other questions. 6. [place] guilty or unable to stop blaming yourself or others for the event(s) or any problems the event(s) may have caused? Response not required due to responses to other questions. Tobacco Use Screening: The patient is a former cigarette smoker. The patient has never used other types of tobacco. Influenza Immunization: Deferral / Refusal The patient declines to receive the recommended dose of seasonal influenza vaccine. Immunization: INFLUENZA, UNSPECIFIED FORMULATION Refusal Reason: PATIENT DECISION Patient refuses all immunization(s) in the FLU group Date Documented: 03/02/24 15:39 Alcohol Use Screen (AUDIT-C): Alcohol Screen: SCREEN FOR ALCOHOL (AUDIT-C) An alcohol screening test (AUDIT-C) was negative (score=2). 1. How often did you have a drink containing alcohol in the past year? Consider a drink to be a 12 ounce can or bottle of regular beer, 8 ounces of malt liquor, a 5 ounce glass of table wine, or a 1.5 ounce shot of liquor (like scotch, gin, or vodka). Two to four times a month 2. How many drinks containing alcohol did you have on a typical day when you were drinking in the past year? One or two drinks 3. How often did you have six or more drinks on one occasion in the past year? Never /es/ ALEXANDER HOWARD LPN Signed: 03/02/2024 15:40 ALEXANDER HOWARD CNTL [facility]
--- OUTSIDE RECORDS SUMMARY | 2024-03-08 11:12 | XMS_ITS | Continuity of Care Document ---
Author Name [facility] Organization [facility] Care Team Providers Care Career Counselor Name Role Phone [facility] Unavailable Unavailable Problems Combined list of problems from 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 It does not include entries that were removed or entered in error. Problem Status Onset Date Problem Type Date of Resolution Comments Source Other hammer toe(s) (acquired), right foot Active 1898 Condition DoD Anxiety (SCT [id number]) Active Condition [facility] back pain Active Condition [facility] Chronic kidney disease stage 3A Active Condition Mar 03 Entered By: EDITH ALEJANDRO Comment: Stage 3a chronic kidney disease 03/02/2021 [facility] Contact dermatitis Active Condition [facility] Degenerative Joint Disease of Shoulder Region (SCT [id number]) Active Condition [facility] Dermatophytosis Active Condition Mar 03, 2024 Entered By: EDITH ALEJANDRO Comment: Dermatophytosis tinea cruris [facility] Erectile Dysfunction (SCT [id number]) Active Condition [facility] GERD - Gastro-Esophageal Reflux Disease (SCT [id number]) Active Condition [facility] Gout Active Condition [facility] Hammer toe Active Condition Mar 03 Entered By: EDITH ALEJANDRO Comment: hammer toe(s) (acquired), right foot [facility] History of nicotine dependence Active Condition [facility] HTN - Hypertension (SCT [id number]) Active Condition [facility] Insomnia Active Condition [facility] Joint pain Active Condition Mar 03 Entered By: EDITH ALEJANDRO Comment: Ankle joint pain [facility] Mononeuritis Active Condition Mar 03, 2024 Entered By: EDITH ALEJANDRO Comment: Mononeuritis lower limb [facility] Myalgia Active Condition Mar 03 Entered By: EDITH ALEJANDRO Comment: and myositis [facility] Pain in Lumbar Spine (SCT [id number]) Active Condition [facility] Plantar fasciitis Active Condition Ja n 2024 Entered By: EDITH ALEJANDRO Comment: Plantar fasciitis left [facility] Renal stone Active Condition [facility] thigh strain muscle, fascia, and tendon Active Condition DoD headache Active Condition DoD insomnia Active Condition DoD visit for: services physical pre-deployment Active Condition DoD assess patient 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 Active Condition DoD irregular sleep-wake rhythm Active Condition 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 DoD dermatophytosis Active Condition DoD skin symptoms Inactive Condition DoD gastroenteritis viral Inactive Condition DoD dehydration (Na, H2O) Inactive Condition DoD Convalescence Following Treatment Active Condition DoD plantar fasciitis left Active Condition DoD dermatitis Active Condition DoD allergic rhinitis Inactive Condition DoD finger sprain right middle finger Inactive Condition DoD mononeuritis lower limb Active Condition DoD Other Physical Therapy Active Condition DoD leg strain gastrocnemius right Inactive Condition DoD pain in leg lower Active Condition DoD upper respiratory infection Inactive Condition DoD skin: rash [as Sx] Active Condition DoD nausea with vomiting Inactive Condition DoD Cognitive Skills - Orientation / Awareness Training Active Condition DoD Administrative Evaluation Services Inactive Condition DoD feeling congested in the chest Inactive Condition DoD Wheezing Active Condition DoD partner relational problem Active Condition DoD adjustment disorder with mixed emotional features Inactive Condition DoD visit for: ears / hearing exam Active Condition DoD bumped into stationary object Inactive Condition DoD finger sprain right ring finger PIP Inactive Condition DoD deployment Active Condition Do D gastroenteritis Active Condition DoD essential hypertriglyceridemia Active Condition DoD nicotine dependence Active Condition Do D dermatophytosis tinea cruris Active Condition DoD Inquiry And Counseling: Contraceptive Practices Active Condition DoD sore throat Active Condition DoD nasal passage blockage (stuffiness) Active Condition DoD sore throat Inactive Condition DoD Blood Pressure Isolated Elevated Active Condition DoD drip or drainage down throat from above Active Condition DoD conjunctivitis acute atopic Inactive Condition DoD contact dermatitis Active Condition DoD allergic reaction Inactive Condition DoD prehypertension Active Condition DoD visit for: occupational health / fitness exam Active Condition no condition identified related to occupational exposures. Hearing is H1. DoD visit for: administrative purpose Inactive Condition DoD bronchitis Inactive Condition Pt needs to quit smoking - will recommend Chantix once BP controlled DoD sinusitis Active Condition DoD ankle joint pain Active Condition Pro file for 30 days DoD visit for: issue repeat prescription Inactive Condition DoD obesity Active Condition Pt to be referred to Wellness due to Profile and weight issues DoD gout Active Condition DoD foot pain (soft tissue) Active Condition Pt continues to complain of pain and swelling if he runs, pt has not seen ortho in several months. He states the ortho physician states for him not to run. There is no documentation of this by the ortho in the chart. Stated I would give 2 more weeks of profile but need documentation from ortho on not running. Instructed that pt needed to follow up with PCM. Pt not being able to runn would affect duty/mobility status. Pt states he is going to see the ortho on this, did not ask for a referral. DoD new patient ophthalmological exam Inactive Condition No his tory or signs of eye injuries or foreign bodies DoD essential hypertension Active Condition Instructed pt o n importance of taking medication and at the same time everyday. Can not clear pt without BP not being under control and with continue complaints of foot problems. DoD essential hypertension benign Active Condition improved with onset of anti-HTN med. Will avoid HCTZ due to possible exaccerbation of gout. nephrology appt pending due to increased creatinine. Likely due to uncontrolled HTN but referred for eval. DoD foot sprain right Inactive Condition Pl ain films reveal no fracture. Possible stress fx vs ligamentous strain. Sent for MRI on . Given crutches to remain non-weight bearing and instructed to elevate foot. Quarters for 48 hours. Will f/u with pt after MRI completed. Possible gout but unlikely location. Will check uric acid also. DoD visit for: services physical Inactive Condition Pt states he is quitting tobacco on his own. PCS'ing withing 2 weeks. Informed pt on benefits of smoking cessation. BMI 28.48. Counseled pt on nutrition and proper exercise. Pt. reports 0 days of inadequate sleep. Pt states he recently switched work shifts, and takes OTC Generic-Brand sleeping aids PRN w/ relief. Pt. also reports taking Tylenol PRN. Pt has hx of hyptertension. Pt had visit with Dr Ibanez 30 Mar 2007 to F/U on HTN- she documented the pt is clear for PCS. Counseled pt on risks of STD's. Pt states he misunderstood question adn has never been treated for an STD. Pt. 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 Pt reports hx of tissue damage to R foot -- reports the foot is heeling, and rarely causes pain. Pt verbalized understanding of all counseling. DoD myalgia and myositis Active Condition Will check flu. Pt is beyond the window where treatment would help. DoD cough Active Condition continue w ith previously prescribed regimen. likely viral. if worsens encouraged pt to f/u with PCM. DoD hypertension systemic Active Condition Adequately controlled on current medication (Adalat 60mg and Hyzaar 100/25). 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 DoD Patient Counseling: Inquiry & Counseling Active Condition [facility]D Diagnosis: ICD-10-CM Z71.89 Other specified counseling Active Diagnosis [facility] Diagnosis: ICD-10-CM I10 Essential (primary) hypertension Active Diagnosis [facility] Medications Combined list of outpatient medications from 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Medications provided include 1) outpatient medications from the last 15 months, and 2) patient-reported medications. Medication Details Route Status Patient Instructions Prescription Expires Prescription Number Last Dispense Date Ordering Provider Order Date Order Qty Source ALBUTEROL SULFATE HFA (albuterol sulfate), 90 MCG, HFA AER AD, INHALATION, TEVA [place], 8.5 g CANISTER ALBUTERO L SULFATE HFA (albuter ol sulfate) , 90 MCG, HFA AER AD, INHALATI ON, TEVA [place], 8.5 g CANISTER Start Date: 12/07/20 Status: Ordered Ordered No Facilit y Access amLODIPine 10 mg oral tablet amLODIPi ne 10 mg oral tablet Start Date: 09/11/20 Status: Ordered Ordered No Facilit y Access amLODIPine 5 mg oral tablet amLODIPi ne 5 mg oral tablet Start Date: 07/24/20 Status: Ordered Ordered No Facilit y Access azithromyci n 250 mg oral tablet 0 total refill(s ) Ordered No Facilit y Access clomiPHENE 50 mg oral tablet clomiPHE NE 50 mg oral tablet Start Date: 11/11/20 Status: Ordered Ordered No Facilit y Access codeine-gua ifenesin 10 mg-100 mg/5 mL oral syrup codeine- guaifene sin 10 mg-100 mg/5 mL oral syrup Start Date: 05/27/20 Status: Ordered Ordered No Facilit y Access cyclobenzap rine 10 mg oral tablet cycloben zaprine 10 mg oral tablet Start Date: 04/17/21 Status: Ordered Ordered No Facilit y Access FAMOTIDINE (FAMOTIDINE ), 20MG, TABLET, ORAL, IVAX PHARMACEUT, 100 ea. BOTTLE Active [id number] 4 2023 90 Pharmac y Data Transac tion Service Facilit y hydroCHLORO thiazide 12.5 mg oral tablet hydroCHL OROthiaz magda 12.5 mg oral tablet Start Date: 10/08/20 Status: Ordered Ordered No Facilit y Access HYDROCHLORO THIAZIDE 25MG/LOSART AN POTASSIUM 100MG TAB TAKE ONE TABLET BY MOUTH ORAL ACTIVE GERARD RODRIGUEZ 2024 [facility] ibuprofen 600 mg oral tablet ibuprofe n 600 mg oral tablet Start Date: 10/29/20 Status: Ordered Ordered No Facilit y Access lidocaine 5% topical film lidocain e 5% topical film Start Date: 05/27/20 Status: Ordered Ordered No Facilit y Access LORAZEPAM (lorazepam) , 0.5 MG, TABLET, ORAL, AUROBINDO PHARM, 500 ea. BOTTLE Active [id number] 4 2023 30 Pharmac y Data Transac tion Service Facilit y LORAZEPAM (lorazepam) , 0.5 MG, TABLET, ORAL, AUROBINDO PHARM, 500 ea. BOTTLE Active [id number] 4 2023 30 Pharmac y Data Transac tion Service Facilit y LORAZEPAM (lorazepam) , 0.5 MG, TABLET, ORAL, TEVA [place], 500 ea. BOTTLE Active [id number] 2023 30 Pharmac y Data Transac tion Service Facilit y LORAZEPAM 0.5MG TAB TAKE ONE TABLET BY MOUTH ORAL ACTIVE MICHAEL GERARD 2024 [facility] LOSARTAN-HY DROCHLOROTH IAZIDE (LOSARTAN/H YDROCHLOROT HIAZIDE), 100MG-25MG, TABLET, ORAL, AUROBINDO PHARM, 90 ea. BOTTLE Active [id number] 4 2023 90 Pharmac y Data Transac tion Service Facilit y LOSARTAN-HY DROCHLOROTH IAZIDE (LOSARTAN/H YDROCHLOROT HIAZIDE), 100MG-25MG, TABLET, ORAL, AUROBINDO PHARM, 90 ea. BOTTLE Active [id number] 4 2023 90 Pharmac y Data Transac tion Service Facilit y losartan-hy droCHLOROth iazide 100mg-12.5m g oral tablet losartan -hydroCH LOROthia zide 100mg-12 .5mg oral tablet Start Date: 04/04/21 Status: Ordered Ordered No Facilit y Access losartan-hy droCHLOROth iazide 50mg-12.5mg oral tablet losartan -hydroCH LOROthia zide 50mg-12. 5mg oral tablet Start Date: 01/03/21 Status: Ordered Ordered No Facilit y Access LUER-SHRUTHI SYRINGE (syringe, disposable, 1 mL), DISP SYRIN, MISCELL, NAVEED JAIME, 100 ea. RODRIGUEZ cárdenas [id number] : 2023 0 Pharmac y Data Transac tion Service Facilit y meloxicam 15 mg oral tablet meloxica m 15 mg oral tablet Start Date: 04/17/21 Status: Ordered Ordered No Facilit y Access NAPROXEN (NAPROXEN), 500MG, TABLET, ORAL, GLENMARK PHARMA, 500 ea. BOTTLE Active [id number] 4 2023 60 Pharmac y Data Transac tion Service Facilit y NAPROXEN (NAPROXEN), 500MG, TABLET, ORAL, GLENMARK PHARMA, 500 ea. BOTTLE Active [id number] 4 2023 60 Pharmac y Data Transac tion Service Facilit y NAPROXEN 500MG TAB TAKE ONE TABLET BY MOUTH ORAL ACTIVE MICHAEL GERARD 2024 [facility] OMEPRAZOLE (omeprazole ), 20 MG, CAPSULE DR ORAL, Pixsta, 1000 ea. BOTTLE Active [id number] 4 2023 90 Pharmac y Data Transac tion Service Facilit y omeprazole 20 mg oral delayed release capsule omeprazo le 20 mg oral delayed release capsule Start Date: 04/16/21 Status: Ordered Ordered No Facilit y Access OMEPRAZOLE 20MG CAP,EC TAKE 1 CAPSULE BY MOUTH EVERY MORNING 30 MINUTES BEFORE BREAKFAS T ORAL ACTIVE GERARD RODRIGUEZ 2024 [facility] oxyCODONE 5 mg oral tablet oxyCODON E 5 mg oral tablet Start Date: 12/09/20 Status: Ordered Ordered No Facilit y Access OXYCODONE-A CETAMINOPHE N (OXYCODONE HCL/ACETAMI NOPHEN), 5MG-325MG, TABLET, ORAL, MALLINKRT PHARM, 50 OXYCODON E-ACETAM INOPHEN (OXYCODO NE HCL/ACET AMINOPHE N), 5MG-325M G, TABLET, ORAL, MALLINKR T PHARM, 50 Start Date: 03/19/20 Status: Ordered Ordered No Facilit y Access predniSONE 20 mg oral tablet predniSO NE 20 mg oral tablet Start Date: 05/21/20 Status: Ordered Ordered No Facilit y Access predniSONE 50 mg oral tablet predniSO NE 50 mg oral tablet Start Date: 12/09/20 Status: Ordered Ordered No Facilit y Access REGULAR BEVEL NEEDLES (needles, disposable) , 25GX5/8 , DIS NEEDLE, MISCELL, BD MEDICAL SURG, 100 ea. RODRIGUEZ cárdenas [id number] : 2023 0 Pharmac y Data Transac tion Service Facilit y TESTOSTERON E CYPIONATE (testostero ne cypionate), 200 MG/ML, VIAL, INTRAMUSC, PERRIGO/PAD AGIS, 1 ml TESTOSTE XIAO CYPIONAT E (testost erone cypionat e), 200 MG/ML, VIAL, INTRAMUS C, PERRIGO/ PADAGIS, 1 ml Start Date: 03/25/21 Status: Ordered Ordered No Facilit y Access TESTOSTERON E CYPIONATE 200MG/ML INJ,1ML (IN OIL) INJECT 1ML (200MG) INTRAMUS CULARLY INTRAM USCULA R ACTIVE GERARD RODRIGUEZ 2024 [facility] tiZANidine 2 mg oral tablet tiZANidi ne 2 mg oral tablet Start Date: 05/21/20 Status: Ordered Ordered No Facilit y Access traMADol 50 mg oral tablet traMADol 50 mg oral tablet Start Date: 09/26/20 Status: Ordered Ordered No Facilit y Access Allergies, Adverse Reactions, Alerts Combined list of allergies from 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 It does not include entries that were removed or entered in error. Substance Category Reaction Severity Reaction type Status Date Reported Comments Source No Known Allergies Drug allergy (disorder) active 06/06/2012 23 [facility] Immunizations Combined list of available immunizations from the 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 Immunization Series Date Given Administered By Site Reaction Lot Number CVX Code Drug Pattern Grader Status Comments Source ANTHRAX VACCINE, UNSPECIFIED 6 2023 319 complet ed Lot#: [id number] [facility] Influenza, injectable, quadrivalent, preservative free 2021 [id number] CeloNovaKline (SKB) complet ed Influenza , injectabl e, quadrival ent, preservat gauri free [facility] tetanus, diphtheria, acellular pertu is 2021 [id number] sanofi pasteur complet ed tetanus, diphtheri a, acellular pertussis 04/24/21 Given Ambulat ory Pharmac y TDAP 2 2021 115 complet ed tetanus toxoid, reduced diphtheri a toxoid, and acellular pertussis vaccine, adsorbed Lot#: [id number] Mfr: SANOFI PASTEUR [facility] tetanus toxoid, reduced diphtheria toxoid, and acellular pertu is vaccine, adsorbed 2 2021 [id number] Sanofi Pasteur (PMC) complet ed tetanus toxoid, reduced diphtheri a toxoid, and acellular pertussis vaccine, adsorbed DoD influenza virus vaccine, inactivated 2020 [id number] Seqirus complet ed influenza virus vaccine, inactivat ed 01/18/21 Given Ambulat ory Pharmac y Influenza, injectable, Madin Poulan Canine Kidney, quadrivalent with preservative 9 2020 [id number] Seqirus (SEQ) comple t ed Influenza , injectabl e, Madin Orly Canine Kidney, quadrival ent with preservat gauri DoD COVID Vaccine Moderna 2020B2 complet ed COVID Vaccine Moderna 05/25/20 Given Ambulat ory Pharmac y COVID-19 (MODERNA), MRNA, LNP-S, PF, 100 MCG/0.5ML DOSE OR 50 MCG/0.25ML DOSE 2 2020 complet ed SARS-COV- 2 (COVID-19 ) vaccine, mRNA, spike protein, LNP, preservat gauri free, 100 mcg or 50 mcg dose Lot#: [id number] Mfr: ExerscripA Ceptaris [employer]. [facility] SARS-COV-2 (COVID-19) vaccine, mRNA, spike protein, LNP, preservative free, 100 mcg or 50 mcg dose 2 2020 Resolve Therapeuticsa Cedexis, [employer]or [employer]ights. (MOD) complet ed SARS-COV- 2 (COVID-19 ) vaccine, mRNA, spike protein, LNP, preservat gauri free, 100 mcg or 50 mcg dose DoD COVID Vaccine Moderna 2020A2 complet ed COVID Vaccine Moderna 04/24/20 Given Ambulat ory Pharmac y COVID-19 (MODERNA), MRNA, LNP-S, PF, 100 MCG/0.5ML DOSE OR 50 MCG/0.25ML DOSE 1 2020 complet ed SARS-COV- 2 (COVID-19 ) vaccine, mRNA, spike protein, LNP, preservat gauri free, 100 mcg or 50 mcg dose Lot#: [id number] Mfr: ExerscripA [employer]ptaris [employer]. [facility] SARS-COV-2 (COVID-19) vaccine, mRNA, spike protein, LNP, preservative free, 100 mcg or 50 mcg dose 1 2020 Moderna Cedexis, [employer]. (MOD) complet ed SARS-COV- 2 (COVID-19 ) vaccine, mRNA, spike protein, LNP, preservat gauri free, 100 mcg or 50 mcg dose DoD influenza, injectable, quadrivalent- pf 2019 [id number] 150 Seqirus complet ed influenza , injectabl e, quadrival ent-pf 12/31/19 Given Ambulat ory Pharmac y Influenza, injectable, quadrivalent, preservative free 1 2019 [id number] 077 150 Seqirus (SEQ) complet ed Influenza , injectabl e, quadrival ent, preservat gauri free DoD influenza, injectable, quadrivalent- pf 2018 [id number] 150 Seqirus complet ed influenza , injectabl e, quadrival ent-pf 11/20/18 Given Ambulat ory Pharmac y Influenza, injectable, quadrivalent, preservative free 17 2018 [id number] 150 Seqirus (SEQ) complet ed Influenza , injectabl e, quadrival ent, preservat gauri free DoD influenza, injectable, quadrivalent- pf 2017 150 complet ed influenza , injectabl e, quadrival ent-pf 01/07/18 Given Ambulat ory Pharmac y Influenza, injectable, quadrivalent, preservative free 0 2017 150 (MVX) complet ed Influenza , injectabl e, quadrival ent, preservat gauri free DoD typhoid Vi capsular polysaccharid e vac 2017 [id number] sanofi pasteur complet ed typhoid Vi capsular polysacch aride vac 06/20/17 Given Ambulat ory Pharmac y TYPHOID, VICPS 2017 101 complet ed typhoid Vi capsular polysacch aride vaccine Lot#: [id number] Mfr: SANOFI PASTEUR [facility] typhoid Vi capsular polysaccharid e vaccine 5 2017 [id number] Sanofi Pasteur ([facility]) complet ed typhoid Vi capsular polysacch aride vaccine DoD measles virus vaccine 0 2017 05 () Not Given measles virus vaccine DoD rubella virus vaccine 0 2017 06 () Not Given rubella virus vaccine DoD mumps virus vaccine 0 2017 07 () Not Given mumps virus vaccine DoD varicella virus vaccine 0 2017 21 () Not Given varicella virus vaccine DoD influenza, seasonal, injectable 2016 [id number] complet ed influenza , seasonal, injectabl e 12/13/16 Given Ambulat ory Pharmac y Influenza, seasonal, injectable, preservative free 2016 NEW, () Not Given Influenza , seasonal, injectabl e, preservat gauri free DoD Influenza, seasonal, injectable 1 2016 [id number] Transcribed (TRS) complet ed Influenza , seasonal, injectabl e DoD influenza, injectable, quadrivalent 2015 [id number] complet ed influenza , injectabl e, quadrival ent 11/11/15 Given Ambulat ory Pharmac y Influenza, seasonal, injectable, preservative free 14 2015 140 Seqirus (SEQ) comple t ed Influenza , seasonal, injectabl e, preservat gauri free DoD influenza, injectable, quadrivalent, contains preservative 1 2015 158 Transcribed (TRS) complet ed influenza , injectabl e, quadrival ent, contains preservat gauri DoD influenza, live, intranasal,qu adrivalent 2014 [id number] Medimmune Inc comple t ed influenza , live, intranasa l,quadriv alent 11/20/14 Given Ambulat ory Pharmac y influenza, live, intranasal, quadrivalent 13 2014 [id number] 149 MedImmune, Inc. (MED) complet ed influenza , live, intranasa l, quadrival ent DoD influenza, live, intranasal,qu adrivalent 2013 [id number] 149 Medimmune Inc comple t ed influenza , live, intranasa l,quadriv alent 12/14/13 Given Ambulat ory Pharmac y influenza, live, intranasal, quadrivalent 12 2013 [id number] MedImmune, Inc. (MED) complet ed influenza , live, intranasa l, quadrival ent DoD influenza, live, intranasal,qu adrivalent 2012 [id number] 149 Medimmune Inc comple t ed influenza , live, intranasa l,quadriv alent 10/13/12 Given Ambulat ory Pharmac y influenza, live, intranasal, quadrivalent 0 2012 [id number] 149 MedImmune, Inc. (MED) complet ed influenza , live, intranasa l, quadrival ent DoD typhoid Vi capsular polysaccharid e vac 2012 [id number] 101 sanofi pasteur complet ed typhoid Vi capsular polysacch aride vac 08/16/12 Given Ambulat ory Pharmac y anthrax vaccine 2012 [id number] Emergent Biosolutions complet ed anthrax vaccine 08/16/12 Given Ambulat ory Pharmac y ANTHRAX VACCINE, UNSPECIFIED 7 2012 319 complet ed Lot#: [id number] [facility] anthrax vaccine 7 2012 [id number] Emergent [employer] [place] ([facility]) complet ed anthrax vaccine DoD typhoid Vi capsular polysaccharid e vaccine 4 2012 [id number] Sanofi Pasteur (PMC) complet ed typhoid Vi capsular polysacch aride vaccine DoD influenza virus vaccine, live 2011 [id number] Tableau Software Inc comple t ed influenza virus vaccine, live 10/30/11 Given Ambulat ory Pharmac y influenza virus vaccine, live, attenuated, for intranasal use 0 2011 [id number] 111 Breathe Technologies, Razor Insights. (MED) complet ed influenza virus vaccine, live, attenuate d, for intranasa l use DoD tetanus, diphtheria, acellular pertu is 2011 [id number] 115 GlaxoSmithKli ne complet ed tetanus, diphtheri a, acellular pertussis 05/22/11 Given Ambulat ory Pharmac y TDAP 2011 115 complet ed tetanus toxoid, reduced diphtheri a toxoid, and acellular pertussis vaccine, adsorbed Lot#: [id number] A [facility] [place] [facility] [facility] tetanus toxoid, reduced diphtheria toxoid, and acellular pertu is vaccine, adsorbed 0 2011 [id number] 115 [facility] (SKB) complet ed tetanus toxoid, reduced diphtheri a toxoid, and acellular pertussis vaccine, adsorbed DoD anthrax vaccine 2011 [id number] Emergent Biosolutions complet ed anthrax vaccine 03/09/11 Given Ambulat ory Pharmac y typhoid Vi capsular polysaccharid e vac 2011 [id number] 101 sanofi pasteur complet ed typhoid Vi capsular polysacch aride vac 03/09/11 Given Ambulat ory Pharmac y ANTHRAX VACCINE, UNSPECIFIED 6 2011 319 complet ed Lot#: [id number] [facility] TYPHOID, VICPS 3 2011 101 complet ed typhoid Vi capsular polysacch aride vaccine Lot#: [id number] Mfr: SANOFI PASTEUR [facility] anthrax vaccine 6 2011 [id number] [employer] [place] ([facility]) complet ed anthrax vaccine DoD typhoid Vi capsular polysaccharid e vaccine 3 2011 [id number] Sanofi Pasteur (PMC) complet ed typhoid Vi capsular polysacch aride vaccine DoD influenza virus vaccine, live 2010 [id number] Tableau Software Inc comple t ed influenza virus vaccine, live 11/04/10 Given Ambulat ory Pharmac y influenza virus vaccine, live, attenuated, for intranasal use 9 2010 [id number] B[employer]he [employer], [employer]or [employer]ights. (MED) complet ed influenza virus vaccine, live, attenuate d, for intranasa l use [facility] influenza virus vaccine,split 2009 [id number] sanofi pasteur complet ed influenza virus vaccine,s plit 11/04/09 Given Ambulat ory Pharmac y influenza virus vaccine, split virus (incl. purified surface antigen)-reti red CODE 8 2009 [id number] Sanofi Pasteur ([facility]) complet ed influenza virus vaccine, split virus (incl. purified surface antigen)- retired CODE DoD anthrax vaccine 2009 [id number] Emergent Biosolutions complet ed anthrax vaccine 09/04/09 Given Ambulat ory Pharmac y anthrax vaccine 5 2009 [id number] Emergent Bio[employer] Operations [place] ([facility]) complet ed anthrax vaccine DoD Novel influenza-H1N 1-09,pf,injec table 2009 [id number] 126 Novartis Pharmaceutica ls complet ed Novel influenza -[id number], pf,inject able 02/25/09 Given Ambulat ory Pharmac y Novel influenza-H1N 1-09, preservative- free, injectable 1 2009 [id number] 126 Novartis Pharmaceutica l Tyshawn. (NOV) complet ed Novel influenza -[id number], preservat gauri-free, injectabl e DoD influenza virus vaccine, live 2008 [id number] 111 Tableau Software Inc comple t ed influenza virus vaccine, live 10/26/08 Given Ambulat ory Pharmac y influenza virus vaccine, live, attenuated, for intranasal use 1 2008 [id number] 111 Breathe Technologies, [employer]. (MED) complet ed influenza virus vaccine, live, attenuate d, for intranasa l use DoD anthrax vaccine 2008 [id number] [employer] complet ed anthrax vaccine 03/27/08 Given Ambulat ory Pharmac y ANTHRAX VACCINE, UNSPECIFIED 5 2008 319 complet ed Lot#: [id number] [facility] anthrax vaccine 5 2008 [id number] Emergent [employer]Defense Operations Mark (MIP) complet ed anthrax vaccine DoD influenza virus vaccine,split 2007 [id number] 15 CSL Behring complet ed influenza virus vaccine,s plit 11/14/07 Given Ambulat ory Pharmac y influenza virus vaccine, split virus (incl. purified surface antigen)-reti red CODE 1 2007 [id number] 15 CS Sqrl[employer] Inc. (CSL) complet ed influenza virus vaccine, split virus (incl. purified surface antigen)- retired CODE DoD anthrax vaccine 2007 [id number] [employer] Biosolutions complet ed anthrax vaccine 09/12/07 Given Ambulat ory Pharmac y ANTHRAX VACCINE, UNSPECIFIED 4 2007 319 complet ed Lot#: [id number] [facility] anthrax vaccine 4 2007 [id number] [employer] [place] (MIP) complet ed anthrax vaccine DoD anthrax vaccine 2007 [id number] Emergent Biosolutions complet ed anthrax vaccine 03/30/07 Given Ambulat ory Pharmac y ANTHRAX VACCINE, UNSPECIFIED 3 2007 319 complet ed Lot#: [id number] [facility] anthrax vaccine 3 2007 [id number] [employer] [place] (MIP) complet ed anthrax vaccine DoD anthrax vaccine 2007 [id number] [employer]olutions complet ed anthrax vaccine 03/10/07 Given Ambulat ory Pharmac y ANTHRAX VACCINE, UNSPECIFIED 2 2007 319 complet ed Lot#: [id number] [facility] anthrax vaccine 2 2007 [id number] [employer] Mark (MIP) complet ed anthrax vaccine DoD anthrax vaccine 2007 [id number] [employer]gent [employer]olutions complet ed anthrax vaccine 02/21/07 Given Ambulat ory Pharmac y ANTHRAX VACCINE, UNSPECIFIED 1 2007 319 complet ed Lot#: [id number] [facility] anthrax vaccine 1 2007 [id number] [employer] [place] (MIP) complet ed anthrax vaccine DoD vaccinia (smallpox) vaccine 0 2007 75 () Not Given vaccinia (smallpox ) vaccine DoD influenza virus vaccine, live 2006 [id number] 111 Tableau Software Inc comple t ed influenza virus vaccine, live 01/10/07 Given Ambulat ory Pharmac y influenza virus vaccine, live, attenuated, for intranasal use 1 2006 [id number] 111 Breathe Technologies, Inc. (MED) complet ed influenza virus vaccine, live, attenuate d, for intranasa l use DoD typhoid vaccine, live, oral 2006 [id number] [employer] [place] complet ed typhoid vaccine, live, oral 03/05/06 Given Ambulat ory Pharmac y typhoid vaccine, live, oral 1 2006 [id number] Goomeo ([facility]) complet ed typhoid vaccine, live, oral DoD influenza virus vaccine, live 2005 [id number] 111 Tableau Software Inc comple t ed influenza virus vaccine, live 12/04/05 Given Ambulat ory Pharmac y influenza virus vaccine, live, attenuated, for intranasal use 1 2005 [id number] 111 Breathe Technologies, Inc. (MED) complet ed influenza virus vaccine, live, attenuate d, for intranasa l use DoD influenza virus vaccine, live 2004 [id number] 111 MediConversion Associates Inc comple t ed influenza virus vaccine, live 12/25/04 Given Ambulat ory Pharmac y influenza virus vaccine, live, attenuated, for intranasal use 1 2004 [id number] 111 Training Amigoune, Inc. (MED) complet ed influenza virus vaccine, live, attenuate d, for intranasa l use DoD influenza virus vaccine, live 2004 [id number] 111 Medimmune Inc comple t ed influenza virus vaccine, live 03/05/04 Given Ambulat ory Pharmac y typhoid Vi capsular polysaccharid e vac 2004 [id number] sanofi pasteur complet ed typhoid Vi capsular polysacch aride vac 03/05/04 Given Ambulat ory Pharmac y typhoid Vi capsular polysaccharid e vaccine 0 2004 [id number] 101 Sanofi Pasteur (PMC) complet ed typhoid Vi capsular polysacch aride vaccine DoD influenza virus vaccine, live, attenuated, for intranasal use 0 2004 [id number] 111 Breathe Technologies, Inc. (MED) complet ed influenza virus vaccine, live, attenuate d, for intranasa l use DoD hepatitis A-hepatitis B vaccine 2003 [id number] 104 GlaxoSmithKli ne complet ed hepatitis A-hepatit is B vaccine 12/07/03 Given Ambulat ory Pharmac y HEP A-HEP B 3 2003 104 complet ed hepatitis A and hepatitis B vaccine Lot#: [id number] [facility] hepatitis A and hepatitis B vaccine 3 2003 [id number] 104 SmithKline (SKB) complet ed hepatitis A and hepatitis B vaccine DoD hepatitis A-hepatitis B vaccine 2003 [id number] 104 GlaxoSmithKli ne complet ed hepatitis A-hepatit is B vaccine 07/07/03 Given Ambulat ory Pharmac y HEP A-HEP B 2 2003 104 complet ed hepatitis A and hepatitis B vaccine Lot#: [id number] [facility] hepatitis A and hepatitis B vaccine 2 2003 [id number] 104 SmithKline (SKB) complet ed hepatitis A and hepatitis B vaccine DoD hepatitis A-hepatitis B vaccine 2003 [id number] 104 GlaxoSmithKli ne complet ed hepatitis A-hepatit is B vaccine 06/06/03 Given Ambulat ory Pharmac y HEP A-HEP B 1 2003 104 complet ed hepatitis A and hepatitis B vaccine Lot#: [id number] [facility] measles, mumps and rubella virus vaccine 0 2003 03 () Not Given measles, mumps and rubella virus vaccine DoD varicella virus vaccine 1 2003 21 () Not Given varicella virus vaccine DoD hepatitis A and hepatitis B vaccine 1 2003 [id number] [employer]quest Systems [facility] (SKB) complet ed hepatitis A and hepatitis B vaccine DoD poliovirus vaccine, inactivated 2003 [id number] sanofi pasteur complet ed polioviru s vaccine, inactivat ed 06/01/03 Given Ambulat ory Pharmac y tetanus-dipht h toxoids (Td) adult/adol 2003 [id number] sanofi pasteur complet ed tetanus-d iphth toxoids (Td) adult/ado l 06/01/03 Given Ambulat ory Pharmac y tuberculin purified protein derivative 2003 [id number] sanofi pasteur complet ed tuberculi n purified protein derivativ e 06/01/03 Given Ambulat ory Pharmac y meningococcal polysaccharid e (MPSV4) 2003 [id number] sanofi pasteur complet ed meningoco ccal polysacch aride (MPSV4) 06/01/03 Given Ambulat ory Pharmac y influenza virus vaccine, whole virus 2003 [id number] Novartis Pharmaceutica complet ed influenza virus vaccine, whole virus 06/01/03 Given Ambulat ory Pharmac y MENINGOCOCCAL MPSV4 2003 32 complet ed meningoco ccal polysacch aride vaccine (MPSV4) Lot#: [id number] Mfr: SANOFI PASTEUR [facility] POLIO, UNSPECIFIED FORMULATION 2003 89 complet ed Sanofi Pasteur Lot#: [id number] [facility] GeneroU SETS [facility] TD(ADULT) UNSPECIFIED FORMULATION 2003 139 complet ed tetanus and diphtheri a toxoids, adsorbed, preservat gauri free, for adult use (2 Lf of tetanus toxoid and 2 Lf of diphtheri a toxoid) Lot#: [id number] Mfr: SANOFI PASTEUR [facility]ero[facility] tetanus and diphtheria toxoids, adsorbed, preservative free, for adult use (2 Lf of tetanus toxoid and 2 Lf of diphtheria toxoid) 0 2003 [id number] 09 Sanofi Pasteur (PMC) complet ed tetanus and diphtheri a toxoids, adsorbed, preservat gauri free, for adult use (2 Lf of tetanus toxoid and 2 Lf of diphtheri a toxoid) [facility] poliovirus vaccine, inactivated 0 2003 [id number] 10 Sanofi Pasteur (PMC) complet ed polioviru s vaccine, inactivat ed DoD influenza virus vaccine, whole virus 0 2003 [id number] 16 PowderJect Pharmaceutica ls (PWJ) complet ed influenza virus vaccine, whole virus DoD meningococcal polysaccharid e vaccine (MPSV4) 0 2003 [id number] 32 Sanofi Pasteur (PMC) complet ed meningoco ccal polysacch aride vaccine (MPSV4) [facility] Vital Signs Combined list of inpatient and outpatient Vital Signs from Department of Defense and Veterans Affairs, ranging from 12 months to all on record, depending upon the facility. Vital Sign Value Date Comments Source No data available for this section Ambulatory Pharm acy SYSTOLIC BLOOD PRESSURE 144 03/02/19 25 15:33:11 [facility] DIASTOLIC BLOOD PRESSURE 100 025 15:33:11 [facility] PULSE OXIMETRY 96 03/02/2024 15:33:11 [facility] WEIGHT 245 03/02/2024 15:33:11 [facility] BMI 35kg/m2 03/02/2024 15:33:11 [facility] PAIN 0 03/02/2024 15:33:11 [facility] HEIGHT 70 03/02/2024 15:33:11 [facility] TEMPERATURE 97.6 03/02/2024 15:33:11 [facility] PULSE 85 03/02/2024 15:33:11 [facility] RESPIRATION 16 03/02/2024 15:33:11 [facility] Encounters Combined list of: 1) Encounters from Department of Veterans Affairs facilities going back up to thelast 18 months. 2) Encounters from the Department of Defense facilities going back up to 280 months. Location Location Details Encounter Type Encounter Number Reason For Visit Attending Provider ADM Date DC Date Status Disposition Source [facility] TELE CONSULT [id number] chest congest ion with fever KATE, SERGIO 03/23 [employer] [facility] Pract[facility] Red) [facility](Int Med Clinic) OUTPATIENT [id number] URI symptom s PITER MALDONADO 03/23 Released w/o Limitations [facility](I nt Med Clinic) [facility](Fli ght Medicine Clinic) OUTPATIENT [id number] [facility] part 2 YAYA SANTOS 04/27 Released w/o Limitations [facility](F light Medicin e Clinic) [facility]am [facility] Red) TELE CONSULT [id number] foot swollen and cant walk on it; pt has an appt tomorro w but ... MODESTO HANKISN 05/05 [facility](F amily Practic e Red) [facility](Fam mara Practice Blue) OUTPATIENT [id number] swollen painful R foot EITAN JAIME D 05/05 Released w/o Limitations [facility](F amily Practic e Blue) [facility](Fam mara Practice Red) OUTPATIENT [id number] pt injured r foot pain ful when put pressur e painful to touch SERGIO LOVE 05/06 Released w/o Limitations [facility](F amily Practic e Red) [facility](Opt ometry Clinic) OUTPATIENT [id number] possibl e foreign body LATIA CARVAJAL 05/06 Released w/o Limitations [facility](O ptometr y Clinic) [facility] mara Practice Blue) TELE CONSULT [id number] right foot pain RADDEN, JAIME D 05/08 [facility](F amily Practic e Blue) [facility](Fam mara Practice Blue) OUTPATIENT [id number] f/u on gout RADDEN, JAIME D 05/10 Released w/o Limitations [facility](F amily Practic e Blue) [facility](Fam mara Practice Blue) OUTPATIENT [id number] gout RADDEN, JAIME D 05/13 Released w/o Limitations [facility] Pract[facility]) [facility]) TELE CONSULT [id number] CONCERN S ABOUT REFERRA L DOM REDMOND 05/14 [facility] Practic [facility] Blue) [facility] Red) OUTPATIENT [id number] profile and med refill KATE, SERGIO 07/20 Released with Work/Duty Limitations [facility]F [facility]ily Practic [facility] Red) [facility] Red) TELE CONSULT [id number] referra l for orthope dic special ist for ankle KATE, SERGIO 08/02 [facility](F [facility]ily Pract[facility] Red) [facility] Red) TELE CONSULT [id number] pt was sent to orthope dic dr & pt was giving a out of work MODESTO Julio 09/09 [facility] Pract[facility] Red) [facility] Red) TELE CONSULT [id number] pt needs med refill ADALET 60mg pt has 5 pills left KATE, SERGIO 09/16 [facility] Pract[facility] Red) [facility] Red) OUTPATIENT [id number] f/u htn (adalat increas ed last appt) KATE, SERGIO 10/13 Released w/o Limitations [facility]ily Practic e Red) [facility] Red) OUTPATIENT [id number] oversea s DEBBIE Boone 12/13 Released w/o Limitations [facility]ily Practic e Red) [facility] Red) OUTPATIENT [id number] pt pcsing in april, eeds CONOR Blanchard 01/28 Released w/o Limitations [facility](F [facility]ily Practic e Red) [employer] [facility] Practice Red) OUTPATIENT [id number] medical EDIE Rinaldi 03/09 Released w/o Limitations [facility] Practic e Red) [facility] Red) OUTPATIENT [id number] F/U from appt Feb 22--med mary melchor EDIE IBANEZ. 03/23 Released w/o Limitations [facility] Practic e Red) [facility] Red) OUTPATIENT [id number] follow up on bp EDIE IBANEZ. 03/30 Released w/o Limitations [facility] Practic e Red) [facility] Red) TELE CONSULT [id number] Pt has lian ns about pha and hiv test MODESTO HANKINS 04/08 [facility](F [facility] Practic e Red) [facility](PHA Cell) OUTPATIENT [id number] pha due oversea JOIE Lizama 04/11 Released w/o Limitations [facility](P BUENO Cell) [facility]) OUTPATIENT [id number] occp pe/stru ctural MX YAYA SANTOS 04/12 Released w/o Limitations [facility](F light Medicin e Clinic) [facility]) OUTPATIENT [id number] Inproce ssing Record Review EDITH DESAI 07/21 Released w/o Limitations [facility]([facility]) [facility]([facility]) OUTPATIENT [id number] PHA JOHANNY AGUILERA 04/27 Released w/o Limitations [facility] Practic [facility] Clinic) [facility]([facility]) TELE CONSULT [id number] f/u pha WELSH, UN DIAN 05/01 [facility] Pract[facility] Clinic) [facility]([facility]) OUTPATIENT [id number] f/u 3day bp check WELSH, UN DIAN 05/04 Released w/o Limitations [facility] Pract[facility]) [facility] Surgeon [facility]) OUTPATIENT [id number] [facility]- AUDIOGR AM,MED HY,PHY EX,WORK PLACE EXP,RES P QUEST JUANJO CLEARY 07/05 Released w/o Limitations [employer]( light Surgeon Office) [facility] Clinic) OUTPATIENT [id number] JANNA Garcia 08/03 Sick at Home/Quarter s [employer] [facility] Practic e Clinic) [facility]([facility]) OUTPATIENT [id number] FT- MISSY MCKEON Tristan 11/05 Released w/o Limitations [facility] Pract[facility] Clinic) [facility]([facility]) OUTPATIENT [id number] FT-MARKO BRISA AHUJA 11/06 Sick at Home/Quarter s [facility] Practic e Clinic) [facility] [facility] [employer]([facility]) OUTPATIENT [id number] ft nasal congest ion product gauri cough clear sore throat JONEL BUSBY 11/09 Sick at Home/Quarter s [facility] Practic e Clinic) [facility]([facility]) DENTAL [id number] Exam JOSE RAFAEL MAGAÑA 12/21 Released w/o Limitations [facility](D ental Clinic) [facility] [employer]([facility]) DENTAL [id number] DEION Pardo 12/21 Released w/o Limitations [facility](D ental Clinic) [facility] [employer]([facility]) TELE CONSULT [id number] VASECTO MY CONSULT XIANG MATHUR R 01/28 [facility] Pract[facility] Clinic) [facility] [facility] [employer]([facility]) OUTPATIENT [id number] Vas Consult XIANG MATHUR R 03/01 Released w/o Limitations [facility] Practic e Clinic) [facility]([facility]) OUTPATIENT [id number] F/U HBP, LABS XIANG MATHUR R 04/02 Released w/o Limitations [facility](F [facility]ily Practic e Clinic) [employer]([facility]) OUTPATIENT [id number] ANN MARIE YOST 04/18 Released w/o Limitations [employer](P BUENO Cell) [facility]([facility]) TELE CONSULT [id number] RADHA Gutierrez FOR SURGERY BRYANNA ADORNO 04/25 [facility](F [facility] Practic e Clinic) [facility]([facility]) TELE CONSULT [id number] con lv or quarter s XIANG MATHUR R 08/12 [facility] Pract[facility] Clinic) [facility] [facility] [employer]([facility]) OUTPATIENT [id number] Per XIANG Fitzpatrick 08/13 Released w/o Limitations [facility](F [facility] Practic e Clinic) [facility]([facility]) TELE CONSULT [id number] F/U BLOOD PRESSUR E MARK MCCLENDON 09/02 [facility](F [facility] Practic e Clinic) [facility]([facility]) TELE CONSULT [id number] Deploym ent ELMER Fofana 09/04 [facility](F amily Practic e Clinic) [employer]([facility]) OUTPATIENT [id number] finger pain x months/ pt request ed alterna te pcm. (pt's pcm on leave) MAYITO CHAVEZ 09/05 Released w/o Limitations [facility] Pract[facility]) [facility] [employer]([facility]) TELE CONSULT [id number] CALL BACK FOR DEPLOYM ENT ELMER ALBERTO 09/10 [facility] Pract[facility]) [facility]IENT [id number] [facility] audio normal no exam needed RAMILA DAMIAN 09/12 Released w/o Limitations [employer](F light Surgeon Office) [facility] OUTPATIENT [id number] [facility] STERLING GEE 09/20 Released w/o Limitations [employer] [facility](F light Surgeon Office) [facility]([facility]) TELE CONSULT [id number] RETRO REFERRA L CHAPIS LEE 12/06 Referred for Appointment [facility]) [facility]([facility]) TELE CONSULT [id number] quarter s MARK MCCLENDON 12/06 [employer] [facility](F [facility]ily Practic e Clinic) [facility]([facility]) TELE CONSULT [id number] RETRO MISSY GAMBOA 12/12 Referred for Appointment [facility] Practic e Clinic) [facility] [facility] [employer]([facility]) TELE CONSULT [id number] NAUSEA/ BUENO X TODAY CHAPIS FULTON 12/24 Referred for Appointment [facility] Practic e Clinic) [facility]([facility]) TELE CONSULT [id number] work excuse/ quarter s CANDY TOPETE Tristan 12/24 [facility] Practic e Clinic) [facility] [employer]([facility]) TELE CONSULT [id number] Quarter s [employer] CANDY TOPETE A 01/03 [facility](F [facility]ily Practic e Clinic) [facility]) OUTPATIENT [id number] NVD, BUENO, chills -FT- JUANJO FULTON 01/24 Sick at Home/Quarter s [facility](F amily Practic e Clinic) [employer]([facility]) OUTPATIENT [id number] ON GOING RASH X 1 MTH //POSSI BLE DERMATO LOGY BRYANNA WHITNEY 02/05 Released w/o Limitations [facility] Practic e Clinic) [facility]) TELE CONSULT [id number] ReferCHAPIS Snow 02/18 Referred for Appointment [facility](F [facility]ily Practic e Clinic) [facility] [facility] [employer]([facility]) OUTPATIENT [id number] SORE THROAT, HEADACH E, FEVER, CHILLS TANNER VILLASEÑOR 02/28 Released w/o Limitations [facility](F [facility]ily Practic e Clinic) [facility] [employer]([facility]) TELE CONSULT [id number] KEENAN SHERIFF 03/11 Referred for Appointment [facility] Practic e Clinic) [facility]) TELE CONSULT [id number] NURSE CONSULT /REACTI ON TO MEDS KEENAN SHERIFF 03/20 [facility](F [facility]ily Practic e Clinic) [employer]([facility]) OUTPATIENT [id number] sore throat/ med side effects CANDY TOPETE 03/24 Released w/o Limitations [facility](F [facility] Practic e Clinic) [facility]) OUTPATIENT [id number] MARK Benedict 04/21 Sick at Home/Quarter s [facility] [facility](F amily Practic e Clinic) [facility]) OUTPATIENT [id number] PHA/EMS CHRISTIGUERITA RINCONDURGA Hays 05/29 Released w/o Limitations [facility](P BUENO Cell) [facility](Fam Med Cl Tm B Non-Ad) TELE CONSULT [id number] ACTIVE DUTY/ RIGHT CALF PAIN KEENAN SHERIFF 08/19 [facility](F am Med Cl Tm B Non-Ad) [facility]) OUTPATIENT [id number] right calf pain since last y CANDY TOPETE 08/20 Released w/o Limitations [facility](F [facility]ily Practic e Clinic) [facility](Fam Med Cl Tm B Non-Ad) TELE CONSULT [id number] LIAN HOLT PROFILE /WAS SEEN YESTERD KEENAN HOWE 08/21 [facility](F am Med Cl Tm B Non-Ad) [facility](Fam Med Cl Tm B Non-Ad) TELE CONSULT [id number] profile extensi on request KISHORE MARROQUIN 09/05 [facility](F am Med Cl Tm B Non-Ad) [facility](Fam Med Cl Tm B Non-Ad) TELE CONSULT [id number] PROFILE EXTENSI ON KISHORE MARROQUIN 09/08 [facility](F am Med Cl Tm B Non-Ad) [facility](Fam Med Cl Tm B Non-Ad) OUTPATIENT [id number] fu right leg / profile CANDY TOPETE 09/17 Released w/o Limitations [employer] [facility] [employer](F am Med Cl Tm B Non-Ad) [employer]([facility] Affiliate s) OUTPATIENT [id number] F/U PROFILE JUANJO FULTON Hitesh 10/03 Released w/o Limitations [employer] [facility](F HI Affilia nikolay) [facility](Phy [facility]ical Therapy Clinic) OUTPATIENT [id number] SUMIT ROSEN 10/03 Released with Work/Duty Limitations [facility] [facility](P hysical Therapy Clinic) [facility]) OUTPATIENT [id number] Rt lower leg pain MARCIAL, LUIS 10/09 Released with Work/Duty Limitations [facility](P hysical Therapy Clinic) [facility]) OUTPATIENT [id number] NATALIIA GUERIN 10/14 Released with Work/Duty Limitations [facility](P hysical Therapy Clinic) [facility] Therapy Clinic) OUTPATIENT [id number] MARCIAL, LUIS 10/16 Released with Work/Duty Limitations [facility](P hysical Therapy Clinic) [facility] Therapy [facility]) OUTPATIENT [id number] BRISA GONZALEZ 10/28 Released with Work/Duty Limitations [facility](P hysical Therapy Clinic) [facility] Therapy [facility]) OUTPATIENT [id number] SUMIT ROSEN 10/29 Released with Work/Duty Limitations [employer]([facility]) [employer](Fli ght Surgeon Office) [facility] [id number] [facility]21 Released w/o Limitations [employer](F light Surgeon Office) [employer]([facility]hy [facility]ical Therapy [facility]) OUTPATIENT [id number] BRISA GONZALEZ 12/19 Released w/o Limitations [employer]([facility]) [employer]([facility]) OUTPATIENT [id number] MARCIAL, LUIS 12/29 Released w/o Limitations [employer]([facility]) [employer]([facility]) OUTPATIENT [id number] MARCIAL, LUIS 01/02 Released w/o Limitations [employer]([facility]) [employer]([facility]) OUTPATIENT [id number] MARCIAL, LUIS 01/05 Released w/o Limitations [employer]([facility]) [employer]([facility]) OUTPATIENT [id number] SUMIT ROSEN E 01/26 Released with Work/Duty Limitations [employer]([facility]) [employer]([facility]) OUTPATIENT [id number] MARCIAL, LUIS 02/13 Released with Work/Duty Limitations [employer]([facility]) [employer]([facility]) OUTPATIENT [id number] MARCIAL, LUIS 02/20 Released with Work/Duty Limitations [employer]([facility]) [employer]([facility]) OUTPATIENT [id number] NATALIIA GUERIN 03/10 Released with Work/Duty Limitations [employer]([facility]) [employer]([facility] Affiliate s) TELE CONSULT [id number] PRE DEPLOYM ENT CLEARAN CE APR 14 2011 DAYTON LORA 03/13 [employer]([facility] Affilia nikolay) [employer]([facility]ical Therapy [facility]) OUTPATIENT [id number] BRISA GONZALEZ 03/13 Released with Work/Duty Limitations [employer]([facility]) [employer]([facility]) OUTPATIENT [id number] MARCIAL, LUIS 03/16 Released with Work/Duty Limitations [employer]([facility]) [employer]([facility]) OUTPATIENT [id number] SUMIT ROSEN E 04/10 Released with Work/Duty Limitations [employer]([facility]) [employer](Fam Med Cl Tm B Non-Ad) OUTPATIENT [id number] F/U PROFILE / MED REFILL ROHIT CLARK 05/24 Released w/o Limitations [employer](F am Med Cl Tm B Non-Ad) [employer]([facility] Team D) OUTPATIENT [id number] chest cold, hurt finger SKYLAR ARIAS 07/22 Released w/o Limitations [employer](O del cid [facility] Team D) [facility](Fam Med Cl Tm B Non-Ad) TELE CONSULT [id number] Notes Entered by: RICHARD CRYSTAL 03 Aug 2011 0810 ------- ------- ------- ------- -- Physica l ROHIT Gavin 08/02 Medical Group(F am Med Cl Tm B Non-Ad) [facility] TELE CONSULT [id number] Notes Entered by: Da WORKMAN 01 Dec 2011 1158 ------- ------- ------- ------- -- ER VISIT F/U MISSY CORTEZ 11/30 Medical Group([facility]) [facility] Med Cl Tm B Non-Ad) TELE CONSULT [id number] Notes Entered by: Da WORKMAN 01 Dec 2011 1204 ------- ------- ------- ------- -- L. FOOT PAIN REYNA MOREL 11/30 [facility] Group(F am Med Cl Tm B Non-Ad) [facility] s) OUTPATIENT [id number] left foot pain//c VENITA Kumar 12/02 Released w/o Limitations [employer]([facility] nikolay) [facility] Med Cl Tm B Non-Ad) TELE CONSULT [id number] Notes Entered by: REYNA MOREL 24 Dec 2011 1339 ------- ------- ------- ------- -- Con leave request REYNA MOREL 12/23 [employer](F am Med Cl Tm B Non-Ad) [facility] s) TELE CONSULT [id number] Notes Entered by: STACY LIN 29 Dec 2011 0941 ------- ------- ------- ------- -- CON ELVIS EXT REYNA MOREL 12/28 [facility](F HI Affilia nikolay) [facility](Fam Med Cl Tm B Non-Ad) TELE CONSULT [id number] Notes Entered by: ROHIT CLARK 11 Jan 2012 1712 ------- ------- ------- ------- -- ROHIT Tan 01/10 [facility] Group(F am Med Cl Tm B Non-Ad) [facility](Fam Med Cl Tm B Non-Ad) OUTPATIENT [id number] nausea diarrhe a some lighthe adednes s x 3 days// DEJA LEOS 04/29 Sick at Home/Quarter s [facility](F am Med Cl Tm B Non-Ad) [facility] Surgeon Office) OUTPATIENT [id number] Notes Entered by: Da WORKMAN 02 May 2012 0935 ------- ------- ------- ------- -- f/u n/DELGADO Glover 05/02 Sick at Home/Quarter s [facility]( light Surgeon Office) [facility](Fam Med Cl Tm B Non-Ad) TELE CONSULT [id number] Notes Entered by: KAMERON GE 30 May 2012 1304 ------- ------- ------- ------- -- ACTIVE DUTY PT WITH RASH/ RIGHT ARM MISSY CORTEZ 05/30 [facility](F am Med Cl Tm B Non-Ad) [facility](Fam Med Cl Tm B Non-Ad) OUTPATIENT [id number] nurse clinic - rash// MISSY CORTEZ 05/30 Released w/o Limitations [employer](F am Med Cl Tm B Non-Ad) [facility](Fli ght Surgeon Office) OUTPATIENT [id number] [facility] BEVERLY BATES 06/06 Released w/o Limitations [employer](F light Surgeon Office) [employer](Fam Med Cl Tm B Non-Ad) TELE CONSULT [id number] Notes Entered by: ALIYA MCKEON 04 Jul 2012 1012 ------- ------- ------- ------- -- Network Results -RHEUMA IDALIAOGY 05/28 MISSY CORTEZ 07/04 [employer](F am Med Cl Tm B Non-Ad) [employer](PHA Cell) OUTPATIENT [id number] PHA ZACHARY MCGEE 07/12 Released w/o Limitations [employer](P BUENO Cell) [employer](Fam Med Cl Tm B Non-Ad) OUTPATIENT [id number] MED CK, BP CK ROHIT CLARK 08/03 Released w/o Limitations [employer](F am Med Cl Tm B Non-Ad) [employer]([facility] Health Assessmen ts) OUTPATIENT [id number] Pre BREE VILLALOBOS 08/16 Released w/o Limitations [employer](D eployme Health Assess ents) [employer]([facility]) OUTPATIENT [id number] Notes Entered by: William ROSE 06 Sep 2012 1231 ------- ------- ------- ------- -- VAIBHAV STOKES 09/06 Released w/o Limitations [employer]([facility]) [employer](Fam Med Cl Tm B Non-Ad) TELE CONSULT [id number] Notes Entered by: NEELAM CONROY 14 Sep 2012 1318 ------- ------- ------- ------- -- PRE DEPLOY ENT ROHIT MARTINES 09/14 [employer](F am Med Cl Tm B Non-Ad) [facility] OUTPATIENT [id number] Theater Provider 04/27 Released w/o Limitations [facility] [employer](Fam Med Cl Tm B Non-Ad) TELE CONSULT [id number] Notes Entered by: KAMERON GE 04 Sep 2013 0837 ------- ------- ------- ------- -- ACTIVE DUTY/ VOMITIN G/ NAUSEA KEENAN SHERIFF 09/04 Referred for Appointment [facility] [employer] [facility](F am Med Cl Tm B Non-Ad) [facility] [employer](Fli ght Surgeon Office) OUTPATIENT [id number] [facility] 09/04 Released w/o Limitations [employer](F light Surgeon Office) [facility](Fam Med Cl Tm B Non-Ad) OUTPATIENT [id number] BP med refROHIT Bowers 09/06 Released w/o Limitations [employer](F am Med Cl Tm B Non-Ad) [facility] [employer] [facility] OUTPATIENT [id number] sleep LONG, DELVIDA L 09/06 Released w/o Limitations [employer](I ntegrat ed Behavio ral Hlth Cln) [employer](Dep [facility] Health Assessmen ts) OUTPATIENT [id number] DHA3, 40 min BREE HOLT 09/14 Released w/o Limitations [employer](D eployme nt Health Assessm ents) [employer](PHA Cell) OUTPATIENT [id number] JONAS-KAIN TO DIANA MCGHEE ED 09/14 Released w/o Limitations [employer](P BUENO Cell) [employer]([facility]) OUTPATIENT [id number] F/U sleep LONG, DELVIDA L 09/22 Released w/o Limitations [employer](I ntegrat ed Behavio ral Hlth Cln) [employer](Fam Med Cl Tm B Non-Ad) TELE CONSULT [id number] Notes Entered by: KAMERON GE 22 Sep 2013 1527 ------- ------- ------- ------- -- ACTIVE DUTY/ PULLED GROIN WHILE RUNNING KEENAN SHERIFF 09/22 Referred for Appointment [employer](F am Med Cl Tm B Non-Ad) [employer](Fam Med Cl Tm B Non-Ad) OUTPATIENT [id number] left groin pain ROHIT CLARK 09/25 Released with Work/Duty Limitations [employer](F am Med Cl Tm B Non-Ad) [employer](Int egrated Behaviora l [facility] Cln) OUTPATIENT [id number] F/U sleep ANDREI BRENDAFABIAN Benz 09/28 Released w/o Limitations [employer](I ntegrat ed Behavio ral Hlth Cln) [employer](Fam Med Cl Tm B Non-Ad) TELE CONSULT [id number] Notes Entered by: KAMERON GE 20 Oct 2013 0946 ------- ------- ------- ------- -- ACTIVE DUTY/ POSSIBL E STREP THROAT KEENAN SHERIFF 10/20 Referred for Appointment [employer](F am Med Cl Tm B Non-Ad) [employer](Fam Med Cl Tm B Non-Ad) TELE CONSULT [id number] Notes Entered by: KEENAN SHERIFF 24 Oct 2013 1321 ------- ------- ------- ------- -- Lab results KEENAN SHERIFF 10/24 Referred for Appointment [employer](F am Med Cl Tm B Non-Ad) [employer](Fam Med Cl Tm B Non-Ad) TELE CONSULT [id number] Notes Entered by: Edgar PENA 01 Dec 2013 0743 ------- ------- ------- ------- -- ER Farhan/KEENAN GALLAGHER 12/01 Immediate Referral [employer](F am Med Cl Tm B Non-Ad) [employer](Fam Med Cl Tm B Non-Ad) OUTPATIENT [id number] f/u - left shoulde r ROHIT Talley 12/04 Sick at Home/Quarter s [employer](F am Med Cl Tm B Non-Ad) [employer](Fam Med Cl Tm B Non-Ad) OUTPATIENT [id number] F/U ROHIT Vidal 12/08 Released w/o Limitations [employer](F am Med Cl Tm B Non-Ad) [employer](Fam Med Cl Tm B Non-Ad) TELE CONSULT [id number] Notes Entered by: KAMERON GE 18 Jan 2014 1033 ------- ------- ------- ------- -- ACTIVE DUTY/ PROFILE ISSUE CHASCONCEPCION PITTMANEvangelina Mirza 01/18 Referred for Appointment [employer](F am Med Cl Tm B Non-Ad) [employer](Fam Med Cl Tm B Non-Ad) TELE CONSULT [id number] Notes Entered by: BROOKE HERNADEZ 09 Mar 2014 1523 ------- ------- ------- ------- -- Out Process bertram KWAN FLOR N 03/09 Released to [employer](F am Med Cl Tm B Non-Ad) [place] [address](AFN G 104 Med Sq-FM) OUTPATIENT [id number] Notes Entered by: Antoinette GUILLEN II 16 Jul 2016 0730 ------- ------- ------- ------- -- Short Non-Fly / Occupat [facility] MARTHA MONTERO 07/16 Released w/o Limitations [facility] [place] [address](A FNG 104 Med Sq-FM) [place] [address](AFN G 104 Med Sq-FM) OUTPATIENT [id number] Notes Entered by: MARCIA MEDEL 28 Nov 2016 0941 ------- ------- ------- ------- -- Med f/u 469 MARCIA MEDEL 11/28 Released with Work/Duty Limitations [facility] [place] [address](A FNG 104 Med Sq-FM) [facility] Treatment [place] [address](AFN G 104 Med Sq-FM) OUTPATIENT [id number] Notes Entered by: LY JACKSON 15 Jan 2017 1329 ------- ------- ------- ------- -- Provide r f/u JOHANNY BRADEN 01/15 Released w/o Limitations [facility] [place] [address](A FNG 104 Med Sq-FM) [place] [address](AFN G 104 Med Sq-FM) OUTPATIENT [id number] Notes Entered by: TREY BULLOCK 18 Mar 2017 1320 ------- ------- ------- ------- -- JOSE RAFAEL SHORE 03/18 Released with Work/Duty Limitations [facility] [place] [address](A FNG 104 Med Sq-FM) [place] [address](AFN G 104 Med Sq-FM) OUTPATIENT [id number] Notes Entered by: HOLLIE ALTMAN 09 Apr 2017 1726 ------- ------- ------- ------- -- MARTHA Esparza 04/09 Released w/o Limitations [facility] [place] [address](A FNG 104 Med Sq-FM) [place] [address](AFN G 104 Med Sq-FM) OUTPATIENT [id number] Notes Entered by: TREY BULLOCK 16 Apr 2017 1511 ------- ------- ------- ------- -- Luis Enrique mirza MD note review JOSE RAFAEL BULLOCK 04/16 Released with Work/Duty Limitations [facility] [place] [address](A FNG 104 Med Sq-FM) [place] [address](AFN G 104 Med Sq-FM) OUTPATIENT [id number] Notes Entered by: JOHANNY BRADEN 25 Feb 2018 1317 ------- ------- ------- ------- -- right Troy s tendoni tis, RTD JOHANNY BRADEN 02/25 [facility]ased w/o Limitations [facility] [place] [address](A FNG 104 Med Sq-FM) [place] [address](AFN G 104 Med Sq-FM) OUTPATIENT [id number] Notes Entered by: JOHANNY BRADEN 15 Apr 2018 1026 ------- ------- ------- ------- -- Occ/Ski n exam and PHAQ JOHANNY BRADEN 04/15 [facility]o Limitations [facility] [place] [address](A FNG 104 Med Sq-FM) [place] [address](AFN G 104 Med Sq-FM) OUTPATIENT [id number] Notes Entered by: MARICRUZ MONTERO 21 May 2018 1040 ------- ------- ------- ------- -- 469 f/u MARTHA MONTERO 05/21 Released w/o Limitations [facility] [place] [address](A FNG 104 Med Sq-FM) [place] [address](AFN G 104 Med Sq-FM) OUTPATIENT [id number] Notes Entered by: MARCIA MEDEL 17 Jun 2018 1443 ------- ------- ------- ------- -- right foot MARCIA MEDEL 06/17 Released with Work/Duty Limitations [facility] [place] [address](A FNG 104 Med Sq-FM) [place] [address](AFN G 104 Med Sq-FM) OUTPATIENT [id number] Notes Entered by: MARCIA MEDEL 01 Oct 2018 0949 ------- ------- ------- ------- -- follow up MARCIA Ordaz 10/01 Released with Work/Duty Limitations [facility] [place] [address](A FNG 104 Med Sq-FM) [facility], [place] [address](AFN G 104 Med Sq-FM) OUTPATIENT [id number] Notes Entered by: MARCIA MEDEL 08 Mar 2019 1449 ------- ------- ------- ------- -- R foot pain MARCIA MEDEL 03/08 Released with Work/Duty Limitations [facility] [place] [address](A FNG 104 Med Sq-FM) [place] [address](AFN G 104 Med Sq-FM) TELE CONSULT [id number] Notes Entered by: MARCIA MEDEL 09 Mar 2019 1020 ------- ------- ------- ------- -- foot pain MARCIA MEDEL 03/09 [facility] [place] [place] [address](A FNG 104 Med Sq-FM) [place] [address](AFN G 104 Med Sq-FM) OUTPATIENT [id number] Notes Entered by: SCOTT HINDS 09 Mar 2019 1439 ------- ------- ------- ------- -- Annual MSE / [place] exams MARCIA MEDEL 03/09 Released with Work/Duty Limitations [facility] [place] [place] [address](A FNG 104 Med Sq-FM) [place] [address](AFN G 104 Med Sq-FM) OUTPATIENT [id number] Notes Entered by: MARCIA MEDEL 21 Mar 2019 1022 ------- ------- ------- ------- -- MARCIA CHING 03/21 Released with Work/Duty Limitations [facility] [place] [address](A FNG 104 Med Sq-FM) [facility], [place] [address](AFN G 104 Med Sq-FM) TELE CONSULT [id number] Notes Entered by: MARCIA MEDEL 14 Apr 2019 1039 ------- ------- ------- ------- -- Op note MARCIA MEDEL 04/14 [facility] [place] [address](A FNG 104 Med Sq-FM) [facility], [place] [address](AFN G 104 Med Sq-FM) TELE CONSULT [id number] Notes Entered by: MARCIA MEDEL 21 Apr 2019 1409 ------- ------- ------- ------- -- foot pain MARCIA MEDEL 04/20 [facility] [place] [address](A FNG 104 Med Sq-FM) [place] [address](AFN G 104 Med Sq-FM) TELE CONSULT [id number] Notes Entered by: MARCIA MEDEL 26 Apr 2019 1249 ------- ------- ------- ------- -- R foot pain MARCIA MEDEL 04/25 [facility] [place] [place] [address](A FNG 104 Med Sq-FM) [place] [address](AFN G 104 Med Sq-FM) TELE CONSULT [id number] Notes Entered by: GIANFRANCOMARCIA 17 May 2019 1151 ------- ------- ------- ------- -- foot pain ANTOINE MEDELTIA DUMONT 05/16 [facility] [place] [place] [address](A FNG 104 Med Sq-FM) [place] [address](AFN G 104 Med Sq-FM) TELE CONSULT [id number] Notes Entered by: TREY BULLOCK 08 Jun 2019 0912 ------- ------- ------- ------- -- note review JOSE RAFAEL BULLOCK 06/07 [facility] [place] [address](A FNG 104 Med Sq-FM) [place] [address](AFN G 104 Med Sq-FM) TELE CONSULT [id number] ANTOINE MEDELTIA DUMONT 08/14 [facility] [place] [address](A FNG 104 Med Sq-FM) [place] [address](AFN G 104 Med Sq-FM) TELE CONSULT [id number] Notes Entered by: MARCIA MEDEL 12 Oct 2019 1405 ------- ------- ------- ------- -- follow up GIANFRANCO MARCIA DUMONT 10/11 [facility] [place] [address](A FNG 104 Med Sq-FM) [place] [address](AFN G 104 Med Sq-FM) OUTPATIENT [id number] Notes Entered by: MARCIA MEDEL 24 Oct 2019 0916 ------- ------- ------- ------- -- Right foot pain MARCIA MEDEL 10/23 Released with Work/Duty Limitations [facility] [place] [address](A FNG 104 Med Sq-FM) [place] [address](AFN G 104 Med Sq-FM) TELE CONSULT [id number] Notes Entered by: MARCIA MEDEL 09 Jan 2020 1459 ------- ------- ------- ------- -- R foot pain MARCIA MEDEL 01/08 [facility] [place] [address](A FNG 104 Med Sq-FM) [facility], [place] [address](AFN G 104 Med Sq-FM) TELE CONSULT [id number] Notes Entered by: MARCIA MEDEL 05 Mar 2020 0904 ------- ------- ------- ------- -- R foot pain MARCIA MEDEL 03/05 [facility] [place] [address](A FNG 104 Med Sq-FM) [facility], [place] [address](AFN G 104 Med Sq-FM) OUTPATIENT [id number] MARCIA MEDEL 03/14 Released w/o Limitations [facility] [place] [address](A FNG 104 Med Sq-FM) [facility], [place] [address](AFN G 104 Med Sq-FM) OUTPATIENT [id number] Notes Entered by: MARCIA MEDEL 14 Mar 2020 1055 ------- ------- ------- ------- -- PHAQ MARCIA MEDEL 03/14 Released with Work/Duty Limitations [facility] Treatme nt Facilit y, [facility](A FNG 104 Med Sq-FM) [facility], [place] [address](AFN G 104 Med Sq-FM) TELE CONSULT [id number] Notes Entered by: MARCIA MEDEL 03 Apr 2020 1443 ------- ------- ------- ------- -- R foot pain MARCIA MEDEL 04/03 [facility] [place] [address](A FNG 104 Med Sq-FM) [facility], [place] [address](AFN G 104 Med Sq-FM) TELE CONSULT [id number] Notes Entered by: MARCIA MEDEL 09 Apr 2020 1056 ------- ------- ------- ------- -- return MARCIA MEDEL 04/09 [facility] [place] [address](A FNG 104 Med Sq-FM) [facility], [place] [address](AFN G 104 Med Sq-FM) OUTPATIENT [id number] Notes Entered by: RUTH SHIRLEY 24 Apr 2020 1247 ------- ------- ------- ------- -- Audiogr am /Respir ator Fit Test /[place] Questio nnaire/ HIV/Vit als/ Provide r([place]-Ph ysica MARCIA MEDEL 04/24 Released w/o Limitations [facility] [place] [address](A FNG 104 Med Sq-FM) [facility], [place] [address](AFN G 104 Med Sq-FM) TELE CONSULT [id number] Notes Entered by: MARCIA MEDEL 11 Jul 2020 1554 ------- ------- ------- ------- -- R foot pain MARCIA MEDEL 07/11 [facility] [place] [address](A FNG 104 Med Sq-FM) [facility], [place] [address](AFN G 104 Med Sq-FM) OUTPATIENT [id number] Notes Entered by: MARCIA MEDEL 10 Sep 2020 0936 ------- ------- ------- ------- -- LUISITO MARCIA MEDEL 09/10 Sick at Home/Quarter s [facility] [place] [address](A FNG 104 Med Sq-FM) [place] [address](AFN G 104 Med Sq-FM) TELE CONSULT [id number] MARCIA MEDEL 12/10 [facility] [place] [address](A FNG 104 Med Sq-FM) [place] [address](AFN G 104 Med Sq-FM) TELE CONSULT [id number] MARCIA MEDEL 01/01 [facility] [place] [address](A FNG 104 Med Sq-FM) [place] [address](AFN G 104 Med Sq-FM) TELE CONSULT [id number] MARCIA MEDEL 01/07 [facility] [place] [address](A FNG 104 Med Sq-FM) [place] [address](AFN G 104 Med Sq-FM) TELE CONSULT [id number] MARCIA MEDEL 02/05 [facility] [place] [address](A FNG 104 Med Sq-FM) [place] [address](AFN G 104 Med Sq-FM) OUTPATIENT [id number] Notes Entered by: MARCIA MEDEL JULIA 25 Feb 2021 1434 ------- ------- ------- ------- -- JORGE LUIS MARCIA MEDEL JULIA 02/25 Released with Work/Duty Limitations [facility] [place] [address](A FNG 104 Med Sq-FM) [place] [address](AFN G 104 Med Sq-FM) OUTPATIENT [id number] Notes Entered by: SARAH MCPHERSON 24 Apr 2021 1402 ------- ------- ------- ------- -- [facility] JOSE RAFAEL Baig 04/24 [facility]Duty [facility] [place] [address](A FNG 104 Med Sq-FM) [place] [address](AFN G 104 Med Sq-FM) TELE CONSULT [id number] MARCIA MEDEL JULIA 09/24 [place] [address](A FNG 104 Med Sq-FM) [place] [address](AFN G 104 Med Sq-FM) TELE CONSULT [id number] MARCIA MEDEL JULIA 10/22 [facility] [place] [address](A FNG 104 Med Sq-FM) [place] [address](AFN G 104 Med Sq-FM) TELE CONSULT [id number] MARCIA MEDEL JULIA 01/15 [facility] [place] [address](A FNG 104 Med Sq-FM) [place] [address](AFN G 104 Med Sq-FM) TELE CONSULT [id number] 5 MARCIA MEDEL JULIA 03/13 [facility] [place] [address](A FNG 104 Med Sq-FM) [place] [address](AFN G 104 Med Sq-FM) OUTPATIENT [id number] Notes Entered by: MARCIA MEDEL 17 Mar 2022 1610 ------- ------- ------- ------- -- MARCIA CHING 03/17 [facility]/Duty [facility]itations [facility] [place] [address](A FNG 104 Med Sq-FM) [place] [address](AFN G 104 Med Sq-FM) OUTPATIENT [id number] Notes Entered by: MALVIN HARTLEY 16 Apr 2022 1641 ------- ------- ------- ------- -- JORGE LUIS benz KEKE SNYDER 04/16 [facility]ased w/o Limitations [facility] [place] [place] [address](A FNG 104 Med Sq-FM) [id number] MDG Between Visit [id number] 04/20 Discharge Disposition: Home or Self Care [id number] [facility] Outpatient Encounter [id number] [facility] Outpatient Encounter [id number] 03/02 [facility] [place] [place] [facility] OFFICE O/P NEW MOD 45 MIN [id number] Diagnos is: ICD-10- CM I10 Essenti al (primar y) hyperte nsion<b r/> GERARD RODRIGUEZ 03/02 [facility] Outpatient Encounter [id number] [facility] [place] CASE MANAGEMENT [id number] Diagnos is: ICD-10- CM Z71.89 Other specifi ed counseling aide ing<br/ > JOY ISLAS 03/03 [facility] Outpatient Encounter [id number] 03/07 [facility] [place] [place] [facility] Procedures Combined list of: 1) Procedures from [facility] Veterans Affairs facilities going back up to thelast 18 months, not all VA non-surgical procedures are included; 2) All procedures from the Department of Defense facilities. Procedure Procedure Type Code Date Perfomer Comments Sourc e No data available for this section [facility] SPECIAL REPORTS SUCH INSURANCE FORMS, MORE THAN THE INFORMATION CONVEYED IN THE USUAL MEDICAL COMMUNICATIONS OR STANDARD REPORTING FORM 2003 DoD PURE TONE AUDIOMETRY (THRESHOLD); AIR ONLY 2007 DoD SERVICE(S) PROVIDED ON AN EMERGENCY BASIS IN THE OFFICE, WHICH DISRUPTS OTHER SCHEDULED OFFICE SERVICES, IN ADDITION TO BASIC SERVICE 2006 DoD SERVICE(S) PROVIDED ON AN EMERGENCY BASIS IN THE OFFICE, WHICH DISRUPTS OTHER SCHEDULED OFFICE SERVICES, IN ADDITION TO BASIC SERVICE 2006 DoD PURE TONE AUDIOMETRY (THRESHOLD); AIR ONLY 2006 DoD THERAPEUTIC PROCEDURE, 1 OR MORE AREAS, EACH 15 MINUTES; THERAPEUTIC EXERCISES TO DEVELOP STRENGTH AND ENDURANCE, RANGE OF MOTION AND FLEXIBILITY 2005 DoD THERAPEUTIC PROCEDURE, 1 OR MORE AREAS, EACH 15 MINUTES; THERAPEUTIC EXERCISES TO DEVELOP STRENGTH AND ENDURANCE, RANGE OF MOTION AND FLEXIBILITY 2005 [facility] VIS FUNCT SCREEN,AUTOMAT/SEMI- AUTOMAT BILAT QUANT DETERM VISUAL ACUITY,OCULAR ALIGN,COLOR VISION,PSEUDOISOCHRO MAT PLATES,& FIELD VIS (MAY INC ALL/SOME SCRN DETERM FOR CONTRAST SENSITIV,VIS UND GLARE) 2005 DoD SCREENING TEST OF VISUAL ACUITY, QUANTITATIVE, BILATERAL 2005 [facility] INFLUENZA VIRUS VACCINE, TRIVALENT, LIVE (LAIV3), FOR INTRANASAL USE 2004 DoD SCREENING TEST OF VISUAL ACUITY, QUANTITATIVE, BILATERAL 2003 DoD SCREENING TEST, PURE TONE, AIR ONLY 2013 [facility] NEUROPSYCHOLOGICAL TESTING (EG, [place] CARD SORTING TEST), ADMINISTERED BY A COMPUTER, WITH QUALIFIED HEALTH OPERATIONAL INTELLIGENCE OFFICER INTERPRETATION AND REPORT 2012 DoD PURE TONE AUDIOMETRY (THRESHOLD); AIR ONLY 2012 DoD INTRAVENOUS INFUSION, HYDRATION; EACH ADDITIONAL HOUR (LIST SEPARATELY IN ADDITION TO CODE FOR PRIMARY PROCEDURE) 2012 [facility] PHYSICAL THERAPY RE-EVALUATION 2011 DoD APPLICATION OF A MODALITY TO 1 OR MORE AREAS; HOT OR COLD PACKS 2011 DoD APPLICATION OF A MODALITY TO 1 OR MORE AREAS; HOT OR COLD PACKS 2011 DoD APPLICATION OF A MODALITY TO 1 OR MORE AREAS; HOT OR COLD PACKS 2011 DoD APPLICATION OF A MODALITY TO 1 OR MORE AREAS; HOT OR COLD PACKS 2011 DoD APPLICATION OF A MODALITY TO 1 OR MORE AREAS; HOT OR COLD PACKS 2010 DoD PHYSICAL THERAPY RE-EVALUATION 2010 DoD APPLICATION OF A MODALITY TO 1 OR MORE AREAS; HOT OR COLD PACKS 2010 DoD APPLICATION OF A MODALITY TO 1 OR MORE AREAS; HOT OR COLD PACKS 2010 DoD THERAPEUTIC PROCEDURE, 1 OR MORE AREAS, EACH 15 MINUTES; THERAPEUTIC EXERCISES TO DEVELOP STRENGTH AND ENDURANCE, RANGE OF MOTION AND FLEXIBILITY 2010 DoD APPLICATION OF A MODALITY TO 1 OR MORE AREAS; HOT OR COLD PACKS 2010 DoD UNLISTED PULMONARY SERVICE OR PROCEDURE 2010 DoD PHYSICAL THERAPY RE-EVALUATION 2010 DoD APPLICATION OF A MODALITY TO 1 OR MORE AREAS; ULTRASOUND, EACH 15 MINUTES 2010 DoD APPLICATION OF A MODALITY TO 1 OR MORE AREAS; HOT OR COLD PACKS 2010 DoD APPLICATION OF A MODALITY TO 1 OR MORE AREAS; HOT OR COLD PACKS 2010 DoD APPLICATION OF A MODALITY TO 1 OR MORE AREAS; HOT OR COLD PACKS 2010 DoD PHYSICAL THERAPY EVALUATION 2010 DoD UNLISTED PULMONARY SERVICE OR PROCEDURE 2009 [facility] SCREENING TEST, PURE TONE, AIR ONLY 2009 [facility] TELE ASSESS & MGT SRV PROV QUAL NONPHYS HLTH CARE PRO TO EST PAT,PARENT,GUARD NOT ORIG REL ASSESS & MGT SRV PROV W/IN PREV 7 DAYS NOR LEAD ASSESS & MGT SRV/PX W/IN NXT 24 HR/SOON APT;5-10 MIN MED DIS 2009 [facility] CULTURE, BACTERIAL, URINE; QUANTITATIVE, SENSITIVITY STUDY 2008 [facility] INJECTION, DIPHENHYDRAMINE HCL, UP TO 50 MG 2008 DoD PURE TONE AUDIOMETRY (THRESHOLD); AIR ONLY 2008 DoD PURE TONE AUDIOMETRY (THRESHOLD); AIR ONLY 2022 [facility] EDUCATIONAL SUPPLIES, SUCH BOOKS, TAPES, AND PAMPHLETS, FOR THE PATIENT'S EDUCATION AT COST TO PHYSICIAN OR OTHER QUALIFIED HEALTH OPERATIONAL INTELLIGENCE OFFICER 2003 [facility] Spirometry Spirometry 18600 2013 SARAH JONES DoD Audiogram (Screening) Audiogram (Screening) [address] [facility] Psychometric Neuropsych Testing Battery Admin By Computer Psychometric Neuropsych Testing Battery Admin By Computer [id number] [facility] Threshold Audiogram (Pure Tone) Threshold Audiogram (Pure Tone) [address] [facility] Pulmonary Function Tests Pulmonary Function Tests [address] [facility] IV Infusion For Hydration Each Additional Hour IV Infusion For Hydration Each Additional Hour [address] [facility] IV Infusion For Hydration 31 Minutes To 1 Hour IV Infusion For Hydration 31 Minutes To 1 Hour [address] [facility] Intravenous Catheter Placement Intravenous Catheter Placement [address] [facility] Physical Therapy Service Re-Evaluation Physical Therapy Service Re-Evaluation [address] [facility] Modalities Heat Hot Packs Modalities Heat Hot Packs 29271 2011 MARCIAL, [facility] [place] Physical Therapy Neuromuscular Re-education Physical Therapy Neuromuscular Re-education [address] [facility] Physical Therapy: ___ Se ion Segments, 15 Minutes Each Physical Therapy: ___ Session Segments, 15 Minutes Each [id number] [facility] Modalities Heat Hot Packs Modalities Heat Hot Packs [address] [facility] Physical Therapy Neuromuscular Re-education Physical Therapy Neuromuscular Re-education [address] [facility] Physical Therapy: ___ Se ion Segments, 15 Minutes Each Physical Therapy: ___ Session Segments, 15 Minutes Each [address] [facility] Modalities Heat Hot Packs Modalities Heat Hot Packs [address] [facility] Physical Therapy Neuromuscular Re-education Physical Therapy Neuromuscular Re-education [address] [facility] Physical Therapy: ___ Se ion Segments, 15 Minutes Each Physical Therapy: ___ Session Segments, 15 Minutes Each 96939 2011 NATALIIA GUERIN Modalities Heat Hot Packs Modalities Heat Hot Packs 39403 2011 MARCIAL, LUIS DoD Physical Therapy: ___ Se ion Segments, 15 Minutes Each Physical Therapy: ___ Session Segments, 15 Minutes Each 64591 2011 MARCIAL, LU[place] DoD Physical Therapy Neuromuscular Re-education Physical Therapy Neuromuscular Re-education 08827 2011 MARCIAL, LUIS DoD Modalities Heat Hot Packs Modalities Heat Hot Packs 54337 2010 MARCIAL, [place] DoD Physical Therapy Neuromuscular Re-education Physical Therapy Neuromuscular Re-education 75605 2010 MARCIAL, LUIS DoD Physical Therapy: ___ Se ion Segments, 15 Minutes Each Physical Therapy: ___ Session Segments, 15 Minutes Each 19498 2010 MARCIAL, LUIS DoD Physical Therapy Service Re-Evaluation Physical Therapy Service Re-Evaluation [address] [facility] Physical Therapy Neuromuscular Re-education Physical Therapy Neuromuscular Re-education 76725 2010 MARCIAL, LUIS DoD Modalities Heat Hot Packs Modalities Heat Hot Packs 66120 2010 MARCIAL, LUIS DoD Physical Therapy: ___ Se ion Segments, 15 Minutes Each Physical Therapy: ___ Session Segments, 15 Minutes Each 79161 2010 MARCIAL, LUIS DoD Modalities Heat Hot Packs Modalities Heat Hot Packs 98728 2010 MARCIAL, LUIS DoD Physical Therapy: ___ Se ion Segments, 15 Minutes Each Physical Therapy: ___ Session Segments, 15 Minutes Each 33499 2010 MACRIAL, [place] DoD Physical Therapy Neuromuscular Re-education Physical Therapy Neuromuscular Re-education 33910 2010 MARCIAL, [place] DoD Physical Therapy Neuromuscular Re-education Physical Therapy Neuromuscular Re-education 17090 2010 MARCIAL, LUIS DoD Modalities Heat Hot Packs Modalities Heat Hot Packs 80510 2010 MARCIAL, LUIS DoD Physical Therapy: ___ Se ion Segments, 15 Minutes Each Physical Therapy: ___ Session Segments, 15 Minutes Each 84155 2010 MARCIAL, LUIS DoD Modalities Heat Hot Packs Modalities Heat Hot Packs [address] [facility] Physical Therapy Neuromuscular Re-education Physical Therapy Neuromuscular Re-education 94916 2010 BRISA GONZALEZ [place] Physical Therapy: ___ Se ion Segments, 15 Minutes Each Physical Therapy: ___ Session Segments, 15 Minutes Each 73300 2010 BRISA GONZALEZ [place] Pulmonary Function Tests Pulmonary Function Tests 46670 2010 DAVIDJULIETHBHARATRASTAFARIAN [place] Physical Therapy Service Re-Evaluation Physical Therapy Service Re-Evaluation 73157 2010 SUM[place] ROSEN Modalities Heat Hot Packs Modalities Heat Hot Packs 61472 2010 GONZALEZCLAUDIAY Edgar [place] Modalities Ultrasound Modalities Ultrasound 41837 2010 GONZALEZBRISA DoD A isted Exercises For ROM Assisted Exercises For ROM 50351 2010 LISA BRISA Hernández DoD Modalities Heat Hot Packs Modalities Heat Hot Packs 33605 2010 MARCIAL, LUIS DoD Modalities Ultrasound Modalities Ultrasound 93539 2010 MARCIAL, LUIS DoD A isted Exercises For ROM Assisted Exercises For ROM 65296 2010 MARCIAL, LUIS DoD Modalities Ultrasound Modalities Ultrasound 10348 2010 NATALIIA GUERIN A DoD Modalities Heat Hot Packs Modalities Heat Hot Packs 46727 2010 APOORVA NATALIIA A DoD A isted Exercises For ROM Assisted Exercises For ROM 82819 2010 NATALIIA GUERIN A DoD Modalities Heat Hot Packs Modalities Heat Hot Packs 61467 2010 MARCIAL, LUIS DoD Modalities Ultrasound Modalities Ultrasound 33491 2010 MARCIAL, LUIS DoD A isted Exercises For ROM Assisted Ex[place] ROM 92163 2010 MARCIAL, LUIS DoD Physical Therapy Service Evaluation Physical Therapy Service Evaluation 28653 2010 SUMIT ROSEN Pulmonary Function Tests Pulmonary Function Tests 57986 2009 [place] G[place] Threshold Audiogram (Pure Tone) Threshold Audiogram (Pure Tone) 57530 2009 [place] Audiogram (Screening) Audiogram (Screening) [address] [facility] Non-Physician Phone Call To Patient/Provider Brief (5-10min) Non-Physician Phone Call To Patient/Provider Brief (5-10min) [address] [facility] Culture, bacterial, urine; quantitative, sensitivity study 2008 BRISA AHUJA strep swab done [facility] Threshold Audiogram (Pure Tone) Threshold Audiogram (Pure Tone) [address] [facility] Threshold Audiogram (Pure Tone) Threshold Audiogram (Pure Tone) [address] [facility] Services Provided On An Emergency Basis In The Office [address] [facility] Services Provided On An Emergency Basis In The Office [address] [facility] Ophthalmological New Patient Start Intermediate Level Care Ophthalmological New Patient Start Intermediate Level Care [address] [facility] Threshold Audiogram (Pure Tone) Threshold Audiogram (Pure Tone) [address] [facility] Threshold Audiogram (Pure Tone) Threshold Audiogram (Pure Tone) [address] [facility] Social History Combined list of available smoking, tobacco, and other social history from 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 Social History Type Response Date Comment Sourc e Tobacco smoking status NHIS [place]-TOBACCO USE FORMER CIGARETTES 03/02/2024 [facility] History of tobacco use [place]-TOBACCO NEVER USED OTHER TYPE 03/02/2024 [facility] This section is an empty social history section. [facility] Assessment and Plan Combined list of future care activities from Department of Defense and Veterans Affairs facilities (e.g., assessment and plan notes, appointments, orders, and referrals). Additional future care activities may be listed in the Plan of Care section. Result Assessment and Plan Date Source Assessment and Plan No data available for this section 03/08/2024 Ambulatory Pharmacy Plan of Care List of future care activities from Department of Veterans Affairs facilities. Additional future care activities may be listed in the Assessment and Plan section. Date/Time Care Activity Care Activity Detail Facili ty 05/29/2024 AMBULATORY - MEDICINE AMBULATORY - MEDICI [facility] Functional Status Combined list of recent functional and cognitive assessments recorded at Department of Defense and Veterans Affairs (VA).VA Functional Severy Measurement (FIM) Scale: 1 = Total Assistance (Subject = 0% +), 2 = Maximal Assistance (Subject = 25% +), 3 = Moderate Assistance (Subject = 50% +), 4 = Minimal Assistance (Subject = 75% +), 5 = Supervision, 6 = Modified Severy (Device), 7 = Complete Severy (Timely, Safely). Assessment Date/Time Source Assessment Type Assessment Skill Assessment Score Assessment Details No data available for this section
--- OUTSIDE RECORDS SUMMARY | 2024-03-08 11:12 | XMS_ITS | Encounter Summary ---
Author Name [facility] [place] [facility] [place] Address [address] [place] [id number] Care Team Providers Care Vp Marketing Name Role Phone ELENA RODRIGUEZ Primary Care Provider Unavail able Selected Encounter This section includes the information on record at [place] for the Encounter. Date/Time Encounter Type Encounter Description Reason Provider Source Mar 03, 2024 01:08 PM CASE MANAGEMENT ADMIN PAT ACTIVTIES (MASNONCT) ICD-10-CM Z71.89 Other specified counseling JOY ISLAS Brenda Encounter Template Text not used by [place] Assessments - Encounter Diagnoses This section includes the primary and secondary diagnoses documented for the Encounter. Date/Time Primary/Secondary Diagnosis Diagnosis Name Provider Source Mar 03, 2024 01:08 PM PRIMARY Other specified counseling JOY ISLAS [facility] Plan of Treatment: Future Appointments (+ 6 months) and Future Tests (+/- 45 days) The Plan of Treatment section includes future care activities for the patient from all [place] treatmentfacilities. This section includes future appointments and future orders which are active, pending or scheduled. Future Appointments This section includes appointments that were scheduled to occur 6 months from the date of the Encounter, up to a maximum of 20 appointments. The data comes from all [place] treatment facilities. Appointment Date/Time Appointment Type Appointme nt Facility Name May 29, 2024 10:30 AM AMBULATORY - MEDICINE [facility] Social History: Smoking Status (Most current) [...] 03:30 PM VA-TOBACCO USE FOR SUNG CIGARETTES [facility] Tobacco Use History This section includes a history of the smoking, or tobacco-related health factors, that were collected on or before the date of the Encounter. The data comes from the [place] facility where the Encounter took place. Date/Time Smoking Status/Tobacco Use Comment Farhan pulido Mar 02, 2024 03:30 PM VA-TOBACCO USE FOR SUNG CIGARETTES [facility] Encounter Notes: All associated encounter notes This section contains the clinical notes associated to the Encounter. Date/Time Encounter Note(s) Provider Source Mar 03, 2024 01:08 PM BLACK TOP RAKER NOTE: LOCAL TITLE: POST 911 CASE MANAGEMENT SCREENING STANDARD TITLE: BLACK TOP RAKER NOTE DATE OF NOTE: MAR 03, 2024@13:08 ENTRY DATE: MAR 03, 2024@13:08:09 AUTHOR: JOY ISLAS COSIGNER: MODESTO CHAVEZ URGENCY: STATUS: COMPLETED Post 10/26 Case Management Screen The [facility] was contacted by telephone. demographic information has been verified as correct. Preferred Method(s) of Communication: Email Mail Telephone Text Medical and/or Mental Health Crisis: The is NOT currently experiencing a medical and/or mental health crisis. Emergency Room Visits/Hospital Admissions: The has NOT had three or more emergency room visits or hospital admissions in the past six months. Chronic Health Conditions: Other Specify: SEE SC LIST Concerns/Questions/Needs: The has NO barriers to care concerns, questions or needs at this time. The HAS concerns, questions or needs regarding benefits. [place] STATE BENFITS The HAS concerns, questions or needs regarding managing care. WHOLE HEALTH EDUCATION The has NO social concerns, questions or needs at this time. Case Management Screen Outcome: The [facility] HAS identified needs as described above. The Veterans identified needs WERE resolved during this encounter. Time spent with patient: 31-45 minutes WHOLE HEALTH WHOLE HEALTH EDUCATION Whole Health Education was provided. Called as part of the TCM screening measure. A comprehensive chart review was conducted prior to this call. 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. is 90% S/C for the following conditions: LUMBOSACRAL OR CERVICAL STRAIN (10%-SC) LIMITATION OF MOTION, INDEX OR LONG FINGER (10%-SC) LIMITATION OF MOTION, INDEX OR LONG FINGER (10%-SC) LIMITATION OF MOTION, THUMB (10%-SC) LIMITED FLEXION OF KNEE (10%-SC) TINNITUS (10%-SC) SLEEP APNEA SYNDROMES (50%-SC) LIMITED FLEXION OF KNEE (10%-SC) LIMITATION OF MOTION, INDEX OR LONG FINGER (10%-SC) RESIDUALS OF FOOT INJURY (10%-SC) LIMITATION ON MOTION, RING OR LITTLE FINGER (0%-SC) RESIDUALS OF FOOT INJURY (10%-SC) LIMITATION ON MOTION, RING OR LITTLE FINGER (0%-SC) HAMMER TOE (0%-SC) LIMITATION OF MOTION, THUMB (10%-SC) LIMITATION OF MOTION, INDEX OR LONG FINGER (10%-SC) LIMITATION ON MOTION, RING OR LITTLE FINGER (0%-SC) LIMITATION ON MOTION, RING OR LITTLE FINGER (0%-SC) IMPAIRED HEARING (0%-SC) just started utilizing [facility] and has no complaints at this time. denies needing or wanting MH services during our conversation when offered. denied having a medical or mental health crisis during our conversation when asked. We discussed the three different components that Make up the [place]. We discussed [place] state benefits that he is eligible for, and I explained the function and the dynamics of the [facility] team and educated him on whole health initiative. I also sent him and email with my contact information on it and the welcome home letter with the team's information on it for any future questions or concerns. 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
--- OUTSIDE RECORDS SUMMARY | 2024-03-08 11:12 | XMS_ITS | Encounter Summary ---
Author Name [facility] [place] [facility] [place] Address [address] [place] [id number] Care Team Providers Care Bee Raiser Name Role Phone ELENA RODRIGUEZ Primary Care Provider Unavail able Selected Encounter This section includes the information on record at [place] for the Encounter. Date/Time Encounter Type Encounter Description Reason Pro vider Source Mar 02, 2024 12:00 AM Outpatient Encounter EVENT (HISTORICAL) IHE Encounter Template Text not used by [place] Plan of Treatment: Future Appointments (+ 6 months) and Future Tests (+/- 45 days) The Plan of Treatment section includes future care activities for the patient from all [place] treatmentfacilities. This section includes future appointments and future orders which are active, pending or scheduled. Future Appointments This section includes appointments that were scheduled to occur 6 months from the date of the Encounter, up to a maximum of 20 appointments. The data comes from all [place] treatment facilities. Appointment Date/Time Appointment Type Appointme nt Facility Name May 29, 2024 10:30 AM AMBULATORY - MEDICINE [facility] Vital Signs: All taken on the encounter date This section contains inpatient and outpatient Vital Signs collected on the date of the Encounter. Date/Time Temperature Pulse Blood Pressure Respiratory Rate SP02 Pain Height Weight Body Mass Index Source Mar 02, 2024 05:48 PM 144/100 [facility] [place] [facility] [facility] Mar 02, 2024 03:33 PM 97.6 85 144/100 16 96 0 70 245 [facility] Social History: Smoking Status (Most current) and Tobacco Use (All prior to encounter date) This section includes the most current, and the historical, smoking and tobacco- related health factors from the [facility] facility where the Encounter took place. Current Smoking Status This section includes the most current smoking, or tobacco-related health factor, from the [place] facility where the Encounter took place. Date/Time Current Smoking Status Comment Facil ity Mar 02, 2024 03:30 PM VA-TOBACCO USE FOR SUNG CIGARETTES [facility] Tobacco Use History This section includes a history of the smoking, or tobacco-related health factors, that were collected on or before the date of the Encounter. The data comes from the [place] facility where the Encounter took place. Date/Time Smoking Status/Tobacco Use Comment F acility Mar 02, 2024 03:30 PM VA-TOBACCO USE FOR SUNG CIGARETTES [facility]
--- OUTSIDE RECORDS SUMMARY | 2024-03-08 11:13 | XMS_ITS | Clinical Summary ---
[facility] Organization [facility] Address [address] [place] [address] Care Team Providers Care Desk Clerk Name Role Phone Elmo Moreno NP Primary Care Provider Surgical History Surgery Date Site/Laterality Comments FOOT SURGERY Right PROCEDURE: HISTORICAL FOOT SURGERY; COMMENT: 2 procedures Medical History Medical History Date Comments Essential hypertension DX:Essent ial hypertension Social History Tobacco Use Types Packs/Day Years Used Date Smoking Tobacco: Never Smokeless Tobacco: Never Sex and Gender Information Value Date Recorded Sex Assigned at Not on file Gender Identity Not on file Sexual Orientation Not on file Obstetrics History Last Filed Vital Signs Vital Sign Reading Time Taken Comments Blood Pressure - - Pulse - - Temperature - - Respiratory Rate - - Oxygen Saturation - - Inhaled Oxygen Concentration - - Weight 108 kg (238 lb 14.4 oz) 09/21/2023 3:56 P M EDT Height 177.8 cm (5' 10 ) 09/21/2023 3:56 PM EDT Body Mass Index 34.28 09/21/2023 3:56 PM EDT Plan of Treatment Health Maintenance Due Date Last Done Comments IPV Vaccines (2 of 3 - Adult catch-up series) 06/29/2003 06/01/2003 Cholesterol Screening (Lipid Panel) 01/17/2022 Colorectal Cancer Screening: Colonoscopy 01/17/2022 Depression Screening 01/17/2022 HIV Screening 01/17/2022 Hepatitis C Screening 01/17/2022 Social Influencers of Health Screening 01/17/2022 COVID-19 Vaccine ( season) 2023 05/25/2020, 04/24/2020 Influenza Vaccine (#1) 2023 2, 01/18/2021, 12/31/2019, Additional history exists Hypertension/CHF/CAD Annual BMP Blood Test 11/29/2023 DTaP,Tdap,and Td Vaccines (4 - Td or Tdap) 04/25/2031 04/24/2021, 05/22/2011, 06/01/2003 Meningococcal ACWY Vaccine Aged Out 06/01/2003 N o longer eligible based on patient's age to complete this topic Hepatitis A Vaccines Aged Out 12/07/2003, 07/07/2003, 06/06/2003 No longer eligible based on patient's age to complete this topic Hepatitis B Vaccines Completed 12/07/2003, 07/07/2003, 06/06/2003 HIB Vaccines Aged Out No longer eligi ble based on patient's age to complete this topic HPV Vaccines Aged Out No longer eligi ble based on patient's age to complete this topic MMR Vaccines Aged Out No longer eligi ble based on patient's age to complete this topic Pneumococcal Vaccine: Pediatrics (0 to 5 Years) and At-Risk Patients (6 to 64 Years) Aged Out No longer eligible based on patient's age to complete this topic RSV Immunization Patients Under 20 months Aged Out No longer eligible based on patient's age to complete this topic Varicella Vaccines Aged Out No longer eligible based on patient's age to complete this topic Care Teams Desk Clerk Relationship Specialty Start Date End Date Elmo Moreno NP [address] [facility] [place], [place] PCP - General 05/15/22
--- OUTSIDE RECORDS SUMMARY | 2024-03-08 11:13 | XMS_ITS | Clinical Summary ---
Author Organization [facility] Address [address] [place] [address] Care Team Providers Care Business Process Expert Name Role Phone Elmo Moreno Primary Care Provider [phone] Allergies No known active allergies Medications Medication Sig Dispensed Refills Start Date End Date Status amLODIPine (NORVASC) tablet 5 mg Take 5 mg by mouth daily. 0 Active hydroCHLOROthiazide (HYDRODIURIL) tablet 12.5 mg Take 12.5 mg by mouth daily. 0 Active oxyCODONE-acetaminoph en (PERCOCET) 5-325 MG per tablet Take 1 tablet by mouth every 4 (four) hours as needed. 30 tablet 0 03/18/2020 Active Social History Tobacco Use Types Packs/Day Years Used Date Smoking Tobacco: Former Smokeless Tobacco: Never Alcohol Use Standard Drinks/Week Comments Yes 0 (1 standard drink = 0.6 oz pur e alcohol) 2 drinks/week Sex and Gender Information Value Date Recorded Sex Assigned at Male 03/18/2020 6:13 AM EST Gender Identity Not on file Sexual Orientation Not on file Last Filed Vital Signs Vital Sign Reading Time Taken Comments Blood Pressure 155/89 03/18/2020 3:00 PM EST Pulse 79 03/18/2020 3:00 PM EST Temperature 36 ??C (96.8 ??F) 03/18/2020 2:04 PM EST Respiratory Rate 16 03/18/2020 2:45 PM EST Oxygen Saturation 100% 03/18/2020 3:00 PM EST Inhaled Oxygen Concentration - - Weight 93 kg (205 lb) 03/11/2020 2:24 PM EST Height 177.8 cm (5' 10 ) 03/07/2020 10:05 AM EST Body Mass Index 29.41 03/07/2020 10:05 AM EST Plan of Treatment Health Maintenance Due Date Last Done Comments Hepatitis B Vaccines (1 of 3 - 3-dose series) 1978 Hepatitis C Screening 1978 COVID-19 Vaccine (#1) 01/16/1979 Depression Screening 1990 BMI Counseling 1996 Preventative Health Evaluation 1996 DTap / Tdap / Td (1 - Tdap) 1997 Colon Cancer Screening (Colonoscopy) 07/18/2023 Influenza Vaccine (#1) 2023 Pneumococcal Vaccine Aged Out No long er eligible based on patient's age to complete this topic RSV Ped < 20 months Aged Out No longe r eligible based on patient's age to complete this topic Advance Directives For more information, please contact: [phone] Latest Code Status on File Code Status Date Activated Date Inactivated Comments Full Code 03/18/2020 12:11 PM 03/18/2020 9:28 PM This c ode status was ascertained in the following way: discussion with patient . Care Teams Business Process Expert Relationship Specialty Start Date End Date Elmo Moreno: [phone] [address] [facility] [place] [address] PCP - General Family Medicine 03/07/20
--- OUTSIDE RECORDS SUMMARY | 2024-03-08 11:13 | XMS_ITS | Clinical Summary ---
Author Organization [facility] Facility Address [address] [place] [address] Care Team Providers Care Security Public Safety Officer Name Role Phone Unavailable Primary Care Provider Unavailabl e Allergies No known active allergies Medications losartan-hydroC HLOROthiazide (HYZAAR) 100-12.5 MG per tablet Take 1 tablet by mouth 1 (one) time each day 1 Active lidocaine (LIDODERM) 5 % patch UNWRAP AND APPLY 1 PATCH TO EVERY DAY NEEDED FOR PAIN 1 Active albuterol HFA (PROVENTIL HFA;VENTOLIN HFA) 108 (90 Base) MCG/ACT inhaler INHALE 1 PUFF BY MOUTH FOUR TIMES DAILY NEEDED FOR SHORTNESS OF BREATH OR WHEEZING 1 Active clomiPHENE (CLOMID) 50 MG tablet Take 100 mg by mouth 1 (one) time each day 1 Active Active Problems Problem Noted Date Diagnosed Date Stage 3a chronic kidney disease 03/02/2021 Renal stone 02/25/2021 Essential hypertension 02/25/2021 Family History Relation Status Comments Father Alive Mother Alive Social History Tobacco Use Types Packs/Day Years Used Date Smoking Tobacco: Former Alcohol Use Standard Drinks/Week Comments Yes 0 (1 standard drink = 0.6 oz pure alcohol) Alcoholic Drinks/day: Occasional social drink Sex and Gender Information Value Date Recorded Sex Assigned at Not on file Legal Sex Male 4:54 PM EST Gender Identity Not on file Sexual Orientation Not on file Last Filed Vital Signs Vital Sign Reading Time Taken Comments Blood Pressure 148/96 02/28/2019 12:00 PM EST Pulse 80 02/28/2019 12:00 PM EST Temperature - - Respiratory Rate - - Oxygen Saturation 96% 02/28/2019 12:00 PM EST Inhaled Oxygen Concentration - - Weight 91.2 kg (201 lb) 02/28/2019 12:00 PM EST Height 177.8 cm (5' 10 ) 02/28/2019 12:00 PM EST Body Mass Index 28.84 02/28/2019 12:00 PM EST Plan of Treatment Health Maintenance Due Date Last Done Comments Pneumococcal Vaccine: Pediat rics (0 to 5 Years) and At-Risk Patients (6 to 64 Years) (1 of 2 - PCV) 1984 Hepatitis B Vaccine (1 of 3 - 19+ 3-dose series) 07/17 Influenza Vaccine (#1) 2023 Insurance
== END 2024-03-08 11:11 | disposition home or self-care (01) ==
PROVIDERS: PCP Nurse Practitioner Family; Visit Provider Physician Assistant
DX: M77.11 Lateral epicondylitis, right elbow (principal); M25.522 Pain in left elbow; M79.644 Pain in right finger(s); M65.331 Trigger finger, right middle finger; S43.421A Sprain of right rotator cuff capsule, initial encounter

== ENCOUNTER → 2024-03-08 11:23 | Outpatient (BNV) | payer OTHER, SELFPAY | PROVIDERS: PCP Nurse Practitioner Family; Visit Provider Radiology Diagnostic Radiology | DX: M79.644 Pain in right finger(s) (principal); M25.522 Pain in left elbow | CPT/HCPCS: 73080; 73120 ==

== ENCOUNTER 2024-03-21 13:45 | Outpatient (AMB) | payer OTHER, SELFPAY ==
--- OUTSIDE RECORDS SUMMARY | 2024-03-21 13:55 | XMS_ITS | Clinical Summary ---
Author Organization [facility] Facility Address [address] [place] [address] Care Team Providers Care Bookkeeper Receptionist Name Role Phone Unavailable Primary Care Provider [...]
--- OUTSIDE RECORDS SUMMARY | 2024-03-21 13:55 | XMS_ITS | Encounter Summary ---
Author Organization [facility] Address [address] [place] [address] Care Team Providers Care Supervisor Fertilizer Processing Name Role Phone Sterling Moreno NP Primary Care Provider Reason for Referral * Imaging (Routine) - Authorized Specialty Diagnoses / Procedures Referred By Contac t Referred To Contact Radiology Diagnoses Low back pain radiating to right leg Procedures MR Lumbar Spine wo Contrast Mally John PA [address] [facility], [facility] [address] [place] [address] [place] [id number] [place], [place] Referral ID Status Reason Start Date Expiration Date V isits Requested Visits Authorized [id number] Authorized 03/20/2024 03/20/2025 1 1 * Imaging (Routine) - Authorized Specialty Diagnoses / Procedures Referred By Contac t Referred To Contact Radiology Diagnoses Sacroiliitis (CMS/HCC) Procedures IR Inj Anes/Steroid Nerve Sacroiliac Joint Right Mally John PA [address] [facility], [address] [place] [address] [facility] Interventional Radiology [address] [place] [address] Referral ID Status Reason Start Date Expiration Date V isits Requested Visits Authorized [id number] Authorized 03/20/2024 03/20/2025 1 1 Reason for Visit * Reason Comments Sacral Iliac Joint Pain Eval for possibl e repeat injection Encounter Details Date Type Department Care Team (Late st Contact Info) Description 03/20/2024 10:15 AM EST Office Visit [place] [facility] [address] [facility] [address] [place] [id number] Mally John PA [address] [facility], [address] [place] [address] Sacroiliitis (CMS/HCC) (Primary Dx); Low back pain radiating to right leg Social History Tobacco Use Types Packs/Day Years Used Date Smoking Tobacco: Never Smokeless Tobacco: Never Sex and Gender Information Value Date Recorded Sex Assigned at Not on file Gender Identity Not on file Sexual Orientation Not on file Job Start Date Occupation Industry Not on file Not on file Not on file documented as of this encounter Ordered Prescriptions Prescription Sig Dispensed Refills Start Date End Da te lidocaine (LIDODERM) 5 % patch Apply topically 1 (one) time each day. Remove & discard patch within 12 hours or as directed by . 30 patch 1 03/20/2024 documented in this encounter Progress Notes * KHANG Shaikh - 03/20/2024 3:03 PM ESTAssociated Problem(s): Sacroiliitis (CMS/HCC) Patient follows up after bilateral SI joint injections 10/04/2023, he states it helped for about 2-1/2 months then symptoms started recurring, by 3 months after injection symptoms were horrible . He states every day he has right >>left SI joint pain, when he first gets out of bed it takes a bit of time before things stretch out and pain lessens. He also notes severe pain when he takes a break, like going for lunch break for 30 minutes, and resting after being very active. 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 He knows in the past Dr. Mckoy talked to him about possible SI joint fusion if he Requiring frequent SI injections, is hesitant to consider SI joint fusion but does want to try another right SI joint injection. He rates his pain in the morning 8/10, during the day while working 3-4/10, with rest and evening 8/10 or higher. When the right SI joint pain is severe he will get pain in the posterior lateral leg to the ankle, tingling in all digits of the right foot. He takes naproxen every morning. Prior SI joint injections: 10/04/2023, 04/28/2023, 08/14/2022, 05/08/2022, 10/15/2021. Most recent3 injections were bilateral SI joint injections. Mr. Schultz most recent MRI lumbar spine was 05/12/2021 that at the time showed minimal degenerative findings, some disc bulging primarily left-sided L4-5, no significant foraminal stenosis at any levelon the right side that would have been contributing to his right sided pain. We reviewed the imagestogether on the computer. I explained to patient we should check updated MRI lumbar spine since he feels over time symptoms have slightly changed and worsened just to make sure there is no nerve rootcompression contributing to his symptoms, although likely will be persistent right sacroiliitis. Wetalked about referral to Dr. Teixeira for discussion on SI joint fusion, patient has many questionsabout the surgery and postop restrictions, he likes to golf, etc and also has questions if he wouldneed to be on disability from his job. At this time he is not ready to consider the SI joint fusion, we will hold off on referral. I will schedule him for right SI joint injection in IR. He also states in the past lidocaine patches helped, I refilled his prescription. All questions answered. * KHANG Shaikh - 03/20/2024 10:15 AM EST NEUROSURGERY OFFICE VISIT Date of Visit: 03/20/2024 Referring Physician: No ref. provider found Primary Care Physician: STERLING MORENO NP RE: Gerard Schultz : 1980 Gerard Schultz follows up after bilateral SI joint injections 10/04/2023, he states it helped for about 2-1/2 months then symptoms started recurring, by 3 months after injection symptoms were horrible . He states every day he has right >>left SI joint pain, when he first gets out of bed it takes a bit of time before things stretch out and pain lessens. He also notes severe pain when he takes a break, like going for lunch break for 30 minutes, and resting after being very active. 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 He knows in the past Dr. Mckoy talked to him about possible SI joint fusion if he Requiring frequent SI injections, is hesitant to consider SI joint fusion but does want to try anotherright SI joint injection. He rates his pain in the morning 8/10, during the day while working 3-/10, with rest and evening 8/10 or higher. When the right SI joint pain is severe he will get pain in the posterior lateral leg to the ankle, tingling in all digits of the right foot. He takes naproxen every morning. Prior SI joint injections: 10/04/2023, 04/28/2023, 08/14/2022, 05/08/2022, 10/15/2021. Most recent 3 injections were bilateral SI joint injections. Past Medical History: Diagnosis Date Essential hypertension Past Surgical History: Procedure Laterality Date FOOT SURGERY Right 2 procedures, right foot March 2020 SHOULDER SURGERY Right 2022 Current Outpatient Medications Medication Instructions albuterol HFA (PROAIR HFA ; PROVENTIL HFA ; VENTOLIN HFA) 90 mcg/actuation inhaler INHALE 2 PUFFS BY MOUTH EVERY 6 HOURS NEEDED lidocaine (LIDODERM) 5 % patch Topical, Daily, Remove & discard patch within 12 hours or as directed by MD. losartan-hydroCHLOROthiazide (HYZAAR) 100-12.5 mg per tablet Take 1 Tablet by mouth. omeprazole (PriLOSEC) [address] capsule syringe with needle, safety 1 mL 25 gauge x 5/8 syringe BD Disp [place] 25G X 5/8 Misc
USE DIRECTED WEEKLY FOR TESTOSTERONE SUBCUTANEOUS INJECTION syringe, disposable, 1 mL (BD LUER-SHRUTHI SYRINGE MISC) B-D SYRINGE LUER-SHRUTHI 1CC 1 ML Misc
USE DIRECTED WITH TESTOSTERONE INJECTION WEEKLY tadalafiL (CIALIS) 20 mg tablet TAKE 1 TABLET NEEDED FOR SEXUAL ACTIVITY testosterone cypionate (DEPO-TESTOTERONE) 200 mg/mL injection INJECT 0.4 ML SUBCUTANEOUSLY EVERY WEEK FOR 4 WEEKS EXAM: On exam, he is awake and alert. Speech and comprehension is intact. Respirations are unlabored. Motor exam reveals good strength to resistance bilaterally 5/5. Reflexes WNL, no clonus. Tender over the right >>left SI joint, no tenderness midline lumbar spine or lateral hips. Pt is ambulating independently with antalgic gait. IMAGING: MRI LUMBAR SPINE 05/12/2021 Clinical Statement: Lower back pain with radicular symptoms, lumbar radiculopathy Comparison: None Findings: There is normal lumbar lordosis. There is preservation of vertebral body height. Vertebral body marrow is within normal limits. Disc desiccation at multiple levels. Cord signal is normal. The conus medullaris is normal in signal characteristics and morphology and terminates at the L1-2 level. T12-L1: No neuroforaminal or spinal canal stenosis seen on the sagittal view L1-L2: No neuroforaminal stenosis or spinal canal stenosis seen on the sagittal view L2-L3: Broad-based disc bulge, ligamentum flavum hypertrophy, facet arthropathy and hypertrophy without neuroforaminal or spinal canal stenosis L3-L4: Broad-based disc bulge, facet arthropathy, ligamentum flavum hypertrophy with mild bilateral neuroforaminal stenosis and moderate spinal canal stenosis L4-L5: Broad-based disc bulge, ligamentum flavum hypertrophy, facet arthropathy and hypertrophy with bilateral moderate neuroforaminal stenosis and moderate spinal canal stenosis. Ligamentum flavum hypertrophy abuts the nerve roots. L5-S1: Broad-based disc bulge and central disc herniation, facet arthropathy and hypertrophy without neuroforaminal or spinal canal stenosis IMPRESSION: Multilevel degenerative changes worse at L4-L5 with bilateral moderate neuroforaminal stenosis and moderate spinal canal stenosis. Problem List Items Addressed This Visit Sacroiliitis (CMS/HCC) - Primary Patient follows up after bilateral SI joint injections 10/04/2023, he states it helped for about 2-1/2 months then symptoms started recurring, by 3 months after injection symptoms were horrible . He states every day he has right >>left SI joint pain, when he first gets out of bed it takes a bit of time before things stretch out and pain lessens. He also notes severe pain when he takes a break, like going for lunch break for 30 minutes, and resting after being very active. 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 He knows in the past Dr. Mckoy talked to him about possible SI joint fusion if he Requiring frequent SI injections, is hesitant to consider SI joint fusion but does want to try another right SI joint injection. He rates his pain in the morning 8/10, during the day while working 3-4/10, with rest and evening 8/10 or higher. When the right SI joint pain is severe he will get pain in the posterior lateral leg to the ankle, tingling in all digits of the right foot. He takes naproxen every morning. Prior SI joint injections: 10/04/2023, 04/28/2023, 08/14/2022, 05/08/2022, 10/15/2021. Most recent3 injections were bilateral SI joint injections. Mr. Schultz most recent MRI lumbar spine was 05/12/2021 that at the time showed minimal degenerative findings, some disc bulging primarily left-sided L4-5, no significant foraminal stenosis at any levelon the right side that would have been contributing to his right sided pain. We reviewed the imagestogether on the computer. I explained to patient we should check updated MRI lumbar spine since he feels over time symptoms have slightly changed and worsened just to make sure there is no nerve rootcompression contributing to his symptoms, although likely will be persistent right sacroiliitis. Wetalked about referral to Dr. Teixeira for discussion on SI joint fusion, patient has many questionsabout the surgery and postop restrictions, he likes to golf, etc and also has questions if he wouldneed to be on disability from his job. At this time he is not ready to consider the SI joint fusion, we will hold off on referral. I will schedule him for right SI joint injection in IR. He also states in the past lidocaine patches helped, I refilled his prescription. All questions answered. Relevant Orders IR Inj Anes/Steroid Nerve Sacroiliac Joint Right Other Visit Diagnoses Low back pain radiating to right leg Relevant Orders MR Lumbar Spine wo Contrast All questions answered. he will call with any questions. Total time spent 45 minutes, time spent includes reviewing history, exam, imaging, plan, patient counseling. KHANG Shaikh on 03/20/2024 at 3:18 PM EST [facility] [place] documented in this encounter Plan of Treatment Scheduled Orders Name Type Priority Associated Diagnoses Orde r Schedule IR Inj Anes/Steroid Nerve Sacroiliac Joint Right Imaging Routine Sacroiliitis (CMS/HCC) Expected: 03/20/2024, Expires: 03/20/2025 MR Lumbar Spine wo Contrast Imaging Routine Low back pain radiating to right leg Expected: 03/20/2024, Expires: 03/20/2025 documented as of this encounter Visit Diagnoses Diagnosis Sacroiliitis (CMS/HCC)- Primary Sacroiliitis, not elsewhere classified Low back pain radiating to right leg Lumbago documented in this encounter Discontinued Medications Medication Sig Discontinue Reason Start Date End Da te cyclobenzaprine (FLEXERIL) 10 mg tablet TAKE 1 TABLET BY MOUTH EVERY NIGHT AT BEDTIME 08/24/2022 03/20/2024 meloxicam (MOBIC) 15 mg tablet TAKE 1 TABLET BY MOUTH EVERY NIGHT AT BEDTIME 08/24/2022 03/20/2024 omeprazole OTC (PriLOSEC OTC) 20 mg EC tablet Take 20 mg by mouth. 07/29/2021 03/20/2024 ondansetron (ZOFRAN) 4 mg tablet TAKE 1 TABLET BY MOUTH EVERY 6 TO 8 HOURS NEEDED FOR NAUSEA 2022 03/20/2024 oxyCODONE (ROXICODONE) 5 mg immediate release tablet TAKE 1 TABLET BY MOUTH EVERY 8 HOURS NEEDED FOR PAIN 08/04/2022 03/20/2024 predniSONE (DELTASONE) 20 mg tablet TAKE 3 TABLETS BY MOUTH DAILY FOR 6 DAYS. DO NOT TAKE WITH MELOXICAM OR ANY OVER THE COUNTER NSAIDS 08/26/2022 03/20/2024 tadalafiL (CIALIS) 10 mg tablet TAKE ONE TABLET BY MOUTH EVERY DAY NEEDED FOR SEXUAL ACTIVITY 03/14/2022 03/20/2024 cetirizine (ZyrTEC) 10 mg tablet TAKE 1 TABLET BY MOUTH EVERY DAY NEEDED FOR ALLERGY SYMPTOMS 2022 03/20/2024 aspirin 81 mg EC tablet TAKE 1 TABLET BY MOUTH DAILY X 4 WEEKS 07/24/2022 03/20/2024 famotidine (PEPCID) 20 mg tablet Take 1 tablet (20 mg total) by mouth. at bedtime. Discontinued by another clinician 05/19/2023 03/20/2024 LORazepam (ATIVAN) 0.5 mg tablet TAKE 1 TABLET BY MOUTH DAILY NEEDED FOR ANXIETY 08/12/2022 03/20/2024 naproxen (NAPROSYN) 500 mg tablet Take 1 tablet (500 mg total) by mouth 2 (two) times a day. 03/20/2024 lidocaine (LIDODERM) 5 % patch APPLY 1 PATCH TOPICALLY EVERY DAY NEEDED FOR PAIN Reorder 08/12/2021 03/20/2024 documented as of this encounter Historical Medications * This list may reflect changes made after this encounter. Medication Sig Dispensed Refills Start Date End Date tadalafiL (CIALIS) 20 mg tablet TAKE 1 TABLET NEEDED FOR SEXUAL ACTIVITY 03/09/2024 omeprazole (PriLOSEC) [address] capsule 02/24/2024 naproxen (NAPROSYN) 500 mg tablet Take 1 tablet (500 mg total) by mouth 2 (two) times a day. 03/20/2024 famotidine (PEPCID) 20 mg tablet Take 1 tablet (20 mg total) by mouth. at bedtime. 05/19/2023 03/20/2024 added in this encounter Care Teams Supervisor Fertilizer Processing Relationship Specialty Start Date End Date Sterling Moreno NP [address] [facility] [place] PCP - General 05/15/22 documented as of this encounter
--- OUTSIDE RECORDS SUMMARY | 2024-03-21 13:55 | XMS_ITS | Clinical Summary ---
Author Organization 175 [facility] Address [address] [place] [address] Phone Care Team Providers Care Special Deputy Sheriff Name Role Phone Elmo Moreno NP Primary Care Provider Allergies No known active allergies Medications Medication Sig Dispensed Refills Start Date End Date Status albuterol HFA (PROAIR HFA ; PROVENTIL HFA ; VENTOLIN HFA) 90 mcg/actuation inhaler INHALE 2 PUFFS BY MOUTH EVERY 6 HOURS NEEDED 2 Active syringe with needle, safety 1 mL 25 gauge x 5/8 syringe BD Disp [place] 25G X 5/8 Misc USE DIRECTED WEEKLY FOR TESTOSTERONE SUBCUTANEOUS INJECTION 3 Active syringe, disposable, 1 mL (BD LUER-SHRUTHI SYRINGE MISC) B-D SYRINGE LUER-SHRUTHI 1CC 1 ML Misc USE DIRECTED WITH TESTOSTERONE INJECTION WEEKLY 2 Active losartan-hydroC HLOROthiazide (HYZAAR) 100-12.5 mg per tablet Take 1 Tablet by mouth. 2 Active testosterone cypionate (DEPO-TESTOTERO NE) 200 mg/mL injection INJECT 0.4 ML SUBCUTANEOUSLY EVERY WEEK FOR 4 WEEKS 2 Active omeprazole (PriLOSEC) [address] capsule 5 Active tadalafiL (CIALIS) 20 mg tablet TAKE 1 TABLET NEEDED FOR SEXUAL ACTIVITY 5 Active lidocaine (LIDODERM) 5 % patch Apply topically 1 (one) time each day. Remove & discard patch within 12 hours or as directed by . 30 patch 1 5 Active aspirin 81 mg EC tablet TAKE 1 TABLET BY MOUTH DAILY X 4 WEEKS 3 03/20/19 25 Discontinued cetirizine (ZyrTEC) 10 mg tablet TAKE 1 TABLET BY MOUTH EVERY DAY NEEDED FOR ALLERGY SYMPTOMS 3 03/20/19 25 Discontinued cyclobenzaprine (FLEXERIL) 10 mg tablet TAKE 1 TABLET BY MOUTH EVERY NIGHT AT BEDTIME 3 03/20/19 25 Discontinued lidocaine (LIDODERM) 5 % patch APPLY 1 PATCH TOPICALLY EVERY DAY NEEDED FOR PAIN 2 03/20/19 25 Discontinued(Reo rder) LORazepam (ATIVAN) 0.5 mg tablet TAKE 1 TABLET BY MOUTH DAILY NEEDED FOR ANXIETY 3 03/20/19 25 Discontinued meloxicam (MOBIC) 15 mg tablet TAKE 1 TABLET BY MOUTH EVERY NIGHT AT BEDTIME 3 03/20/19 25 Discontinued omeprazole OTC (PriLOSEC OTC) 20 mg EC tablet Take 20 mg by mouth. 2 03/20/19 25 Discontinued ondansetron (ZOFRAN) 4 mg tablet TAKE 1 TABLET BY MOUTH EVERY 6 TO 8 HOURS NEEDED FOR NAUSEA 3 03/20/19 25 Discontinued oxyCODONE (ROXICODONE) 5 mg immediate release tablet TAKE 1 TABLET BY MOUTH EVERY 8 HOURS NEEDED FOR PAIN 3 03/20/19 25 Discontinued predniSONE (DELTASONE) 20 mg tablet TAKE 3 TABLETS BY MOUTH DAILY FOR 6 DAYS. DO NOT TAKE WITH MELOXICAM OR ANY OVER THE COUNTER NSAIDS 3 03/20/19 25 Discontinued tadalafiL (CIALIS) 10 mg tablet TAKE ONE TABLET BY MOUTH EVERY DAY NEEDED FOR SEXUAL ACTIVITY 3 03/20/19 25 Discontinued famotidine (PEPCID) 20 mg tablet Take 1 tablet (20 mg total) by mouth. at bedtime. 4 03/20/19 25 Discontinued(Dis continued by another clinician) naproxen (NAPROSYN) 500 mg tablet Take 1 tablet (500 mg total) by mouth 2 (two) times a day. 03/20/19 25 Discontinued Active Problems Problem Noted Date Diagnosed Date Ankle pain 09/21/2023 Overview (03/14/2024): Profile for 30 days Contact dermatitis 09/21/2023 Cough 09/21/2023 Overview (03/14/2024): continue with previously prescribed regimen. likely viral. if worsens encouraged pt to f/u with PCM. Dermatophytosis 09/21/2023 Finding of above normal blood pressure Syed type IV hyperlipoproteinemia 024 Gout 09/21/2023 Headache 09/21/2023 Insomnia 09/21/2023 Irregular sleep-wake rhythm 09/21/2023 Mononeuritis lower limb 09/21/2023 Muscle pain 09/21/2023 Overview (03/14/2024): Will check flu. Pt is beyond the window where treatment would help. Nicotine dependence 09/21/2023 Obesity 09/21/2023 Overview (03/14/2024): Pt to be referred to Wellness due to Profile and weight issues Disease of nasal cavity and sinuses 09/21/2023 Overview (03/14/2024): Other diseases of nasal cavity and sinuses Pain of foot 09/21/2023 Overview (03/14/2024): Pt continues to complain of pain and [...] this, did not ask for a referral. Pain of lower extremity 09/21/2023 Plantar fasciitis of left foot 09/21/2023 Postnasal drip 09/21/2023 Rash 09/21/2023 Sinusitis 09/21/2023 Wheezing 09/21/2023 Injury to hip and thigh 09/21/2023 Overview (03/14/2024): Sprain and strain of hip and thigh Sacroiliitis 08/26/2021 Overview (03/14/2024): Last Assessment & Plan: Mr. Schultz is once again having trouble with bilateral sacroiliitis. His last injection was in April and he describes great relief. As each month goes by his pain comes back a little bit more, and by August he had pain daily once again. He had pain with palpation, positive Gaenslen's test, positive SI joint compression test, and a positive Austin's maneuver all worse on the right than on the left. I will request bilateral SI joint injections but if he can only have 1 side done he would prefer it done on the right. We talked about steroids and long-term effects that they may have. He is trying to avoid an SI joint fusion for fear of losing mobility and being unable to play golf. He will follow-up with us in the future on an as-needed basis. Assessment & Plan (03/20/2024 3:03 PM EST): Patient follows up after bilateral SI joint [...] He rates his pain in the morning 09/24, during the day while working 3-4/10, with [...] 3 injections were bilateral SI joint injections. Mr. Schultz most recent MRI lumbar spine was 05/12/2021 that at the time showed minimal degenerative findings, some disc bulging primarily left-sided L4-5, no significant foraminal stenosis at any level on the right side that would have been contributing to his right sided pain. We reviewed the images together on the computer. I explained to patient we should check updated MRI lumbar spine since he feels over time symptoms have slightly changed and worsened just to make sure there is no nerve root compression contributing to his symptoms, although likely will be persistent right sacroiliitis. We talked about referral to Dr. Teixeira for discussion on SI joint fusion, patient has many questions about the surgery and postop restrictions, he likes to golf, etc and also has questions if he would need to be on disability from his job. At this time he is not ready to consider the SI joint fusion, we will hold off on referral. I will schedule him for right SI joint injection in IR. He also states in the past lidocaine patches helped, I refilled his prescription. All questions answered. Stage 3a chronic kidney disease 03/02/2021 Essential hypertension 02/25/2021 Renal stone 02/25/2021 Other hammer toe(s) (acquired), right foot 02/13 Resolved Problems Problem Noted Date Diagnosed Date Resolved Date Dermatitis 09/21/2023 03/20/2024 Gastroenteritis 09/21/2023 03/20/2024 Encounters Date Type Department Care Team Description 03/20/2024 10:15 AM EST Office Visit Neurosurgery [address] [phone] Mally John PA Sacroiliitis (CMS/HCC) (Primary Dx); Low back pain radiating to right leg 03/13/2024 Telephone Neurosurgery [address] [place] [address] [facility] Immunizations Name Administration Dates Next Due Anthrax 08/16/2012, 2,09/04/2009,03/27,09/12/2007,03/30/2007,03/10/2007 ,02/21/2007 H1N1 Inj Preservative Free 02/25/2009 Hepatitis A-Hepatitis B Adul t (Twinrix) 18yo and older 12/07/2003,07/07/2003,06/06/2003 IPV Inactivated polio (Ipol) 6wks and older 06/01/2003 Influenza trivalent, 0.5mL, preservative free (Fluarix; FluLaval; Fluzone) ages 6mo and older (Afluria) 3 years and older 12/21/2021,01/18/2021,12/31/2019,11/20,01/07/2018,11/11/2015,11/20/2014 ,12/14/2013,10/13/2012,10/30/2011,10/17,11/04/2009,10/26/2008, 8,01/10/2007,12/04/2005,12/25/2004,,06/01/2003 Influenza trivalent, with pr eservative (Fluzone; Afluria) 6mo and older 12/13/2016 Meningococcal Polysaccharide 06/01/2003 Tdap Tetanus diptheria acell ular pertussis (Boostrix; Adacel) 7yo and older 04/24/2021,05/22/2011,06/01/2003 Typhoid VICPS (Typhim Vi) 2y o and older 06/20/2017,08/16/2012,03/09/2011,03/05,03/05/2004 Surgical History Surgery Date Site/Laterality Comments FOOT SURGERY Right 2 procedures, right foot March 2020 SHOULDER SURGERY 02/15/2022 - 02/14/2023 Right Medical History Medical History Date Comments Essential hypertension Social History Tobacco Use Types Packs/Day Years Used Date Smoking Tobacco: Never Smokeless Tobacco: Never Sex and Gender Information Value Date Recorded Sex Assigned at Not on file Gender Identity Not on file Sexual Orientation Not on file Job Start Date Occupation Industry Not on file Not on file Not on file Obstetrics History Last Filed [...] 3 - Adult catch-up series) 06/29/2003 06/01/2003 COVID-19 Vaccine (3 - Moderna risk series) 06/22/2020 05/25/2020, 04/24/2020 Cholesterol Screening (Lipid Panel) 01/17/2022 Colorectal Cancer Screening: Colonoscopy 01/17/2022 Depression Screening 01/17/2022 HIV Screening 01/17/2022 Hepatitis C Screening 01/17/2022 Social Influencers of Health Screening 01/17/2022 Influenza Vaccine (#1) 2023 3, 12/21/2021, 01/18/2021, Additional history exists Hypertension/CHF/CAD Annual BMP Blood Test 11/29/2023 DTaP,Tdap,and Td Vaccines (4 - Td or Tdap) 04/25/2031 04/24/2021, 05/22/2011, 06/01/2003, Additional history exists Meningococcal ACWY Vaccine Aged Out 06/01/2003 N [...] age to complete this topic Care Teams Special Deputy Sheriff Relationship Specialty Start Date End Date Elmo Moreno NP [address] [facility] [place] PCP - General 05/15/22
--- OUTSIDE RECORDS SUMMARY | 2024-03-21 13:55 | XMS_ITS | Clinical Summary ---
Author Organization [facility] Address [address] [place] [address] Care Team Providers Care Sausage Cutter Name Role Phone Elmo Moreno Primary Care Provider [phone] Allergies No known active allergies Medications Medication [...] Advance Directives For more information, please contact: [phone] Latest Code Status on File Code Status Date Activated Date Inactivated Comments Full Code 03/18/2020 12:11 PM 03/18/2020 9:28 PM This c ode status was ascertained in the following way: discussion with patient . Care Teams Sausage Cutter Relationship Specialty Start Date End Date Elmo Moreno: [id number] [address] [facility] [place] [address] PCP - General Family Medicine 03/07/20
--- OUTSIDE RECORDS SUMMARY | 2024-03-21 13:55 | XMS_ITS | Encounter Summary ---
Author Organization [facility] Address [address] [place] [address] Care Team Providers Care Refractory Repairer Name Role Phone Elmo Moreno NP Primary Care Provider Encounter Details Date Type Department Care Team ([facility] st Contact Info) Description 03/13/[address] [place] [address] Allison Euceda MA Social History Tobacco Use Types Packs/Day Years Used Date Smoking Tobacco: Never Smokeless Tobacco: Never Sex and Gender Information Value Date Recorded Sex Assigned at Not on file Gender Identity Not on file Sexual Orientation Not on file Job Start Date Occupation Industry Not on file Not on file Not on file documented as of this encounter Progress Notes * KHANG Shaikh - 03/13/2024 2:59 PM EST Please have patient come in for reeval if patient wants injections done again in radiology at the hospital. We will have to submit a new H&P and exam for radiology. (Or we can refer him to familyphysiatry with Dr. Castañeda and he can follow-up with them when he would like injections scheduled. They would examine him there prior to scheduling injections.) * Allison Euceda MA - 03/13/2024 1:47 PM EST Patient would like to have repeat injections order. Is this something we can put order in for or does patient need to come to office first. He believes last injection was about 5 months ago. documented in this encounter Plan of Treatment Not on file documented as of this encounter Visit Diagnoses Not on filedocumented in this encounter Care Teams Refractory Repairer Relationship Specialty Start Date End Date Elmo Moreno NP [address] [facility] [place] PCP - General 05/15/22 documented as of this encounter
[2024-03-21 14:03] VITALS: BP 140/100; PULSE 91; TEMP 36.7; O2SAT 97
--- NOTE | 2024-03-21 14:03 | AM.OFFWIN_ITS ---
Intake Vital Signs 3 03/21/24 14:03 Weight 244 lb BP 140/100 H Blood Pressure Location Lt brachial Position Sitting Pulse 91 Pulse Source Pulse Oximeter Temp 98.0 F Temp Source Oral Pulse Oximetry (%) 97 Oxygen Delivery Method Room Air Intake Visit Reasons: EP ?Hernia Intake Note: Patient here for possible hernia in belly button area that has been present since wednesday and pain has worsened the past couple of days. Patient Tobacco Use Status: Former Tobacco user Allergies No Known Allergies [No Known Allergies*] Allergy (Verified 03/08/24 10:31) Medication List - Last Reconciled 03/21/24 by Radha Espinoza MD albuterol sulfate 90 mcg/actuation (Ventolin HFA) 2 puffs inhalation Q4-6H PRN famotidine (Pepcid) 20 mg PO BEDTIME lorazepam 0.5 mg PO DAILY PRN 30 days losartan-hydrochlorothiazide 100-25 mg 1 tab PO DAILY 90 days needle (disp) 22 G As directed needle (disp) 25 gauge (BD Regular Bevel Friend) As directed weekly - for testosterone subcutaneous injection omeprazole 20 mg PO DAILY syringe (disposable) (BD Luer-Christiano Syringe) Testosterone injection weekly tadalafil 20 mg PO ONCE PRN 30 days testosterone cypionate (Depo-Testosterone) 100 mg (0.5 mL) subcut QWEEK 4 weeks Do you need a note to return to daycare/school/sports/work: No HPI EP ?Hernia 2 HPI0 Details Chief Complaint Pain and swelling around the belly button with discharge. History of Present Illness - The patient is a 43-year-old male pres enting with complaints of abdominal pain near the umbilicus. - The pain began on Wednesday afternoon a nd is described as across from the belly button, with associated swelling and discharge observed more recently. - A scab was noted this morning, with so reness increasing upon certain movements and squeezing the abdomen. - The patient reports this as a first-ti me experience, with no prior hernial history. - The patient reports no gastrointestina l distress associated with meal ingestion, indicating the pain is likely not related to digestive processes. Plan Immediate management includes prescribing antibiotics to address potential infection at the umbilical site and advising the patient to avoid heavy lifting to prevent further strain. The patient is recommended to stay home and rest, with an ultrasound ordered to evaluate the abdominal swelling and discharge. The patient's antihypertensive regimen is continued, considering possible white coat hypertension. Monitoring and scheduled follow-up are planned to reassess both conditions comprehensively. Patient Instructions - Take the prescribed antibiotic as dire cted. - Avoid lifting heavy objects and any st renuous activities. - Rest at home for 2 days and monitor sy mptoms. - Consume light meals. - An ultrasound appointment will be sche duled; await notification. - Continue taking blood pressure medicat ion as prescribed. - Report any increase in pain, swelling, or fever promptly. Review of Systems - Gastrointestinal: Reports abdominal pa in when squeezing stomach. - Musculoskeletal: Reports soreness near the umbilical region. - General: Denies pain after eating. Constitutional: No fever no chills Respiratory: no Cough, no shortness a breath Cardiovascular: no palpitations, no chest pains CONCRETE PRECAST MOULDER: No headache no blurring of vision skin: No rash extremities: As per history [facility] Medical History Tubular adenoma of colon GERD (gastroesophageal reflux disease) Anxiety with depression PTSD (post-traumatic stress disorder) Lumbar stenosis HTN (hypertension) Sleep apnea Hypogonadism in male BPH (benign prostatic hyperplasia) Renal calculi CKD (chronic kidney disease) Right foot pain Surgical History Status post right foot surgery Family History Father No problems noted. Mother No problems noted. Social History Housing: House Alcohol intake: current Alcohol intake frequency: holidays/special occasions only Patient Tobacco Use Status: Former Tobacco user Current occupational status: employed Cognitive needs: No Hearing needs: No Vision needs: No Physical Exam Vital Signs: Last Vital Signs Temp 98.0 F 03/21/24 14:03 Pulse 91 03/21/24 14:03 BP 140/100 H 03/21/24 14:03 Pulse Ox 97 03/21/24 14:03 Oxygen Delivery Method Room Air 03/21/24 14:03 Const General: no acute distress Orientation/consciousness: patient oriented x3 Eyes General: appearance normal, both eyes and all related structures Resp Effort & Inspection: normal respiratory effort and able to speak in complete sentences GI Abdomen image: 2 1. no hernia noticed no discharge from umblical at this time, tender around that area without guarding or rebound Neuro General: patient oriented x3 Psych Mental Status: mental status grossly normal Assessment & Plan Assessment & Plan (1) Periumbilical pain: Code(s): R10.33 - Periumbilical pain Plan Chief Complaint Pain and swelling around the belly button with discharge. History of Present Illness - The patient is a 43-year-old male presenting with complaints of abdominal pain near the umbilicus. - The pain began on Wednesday afternoon and is described as across from the belly button, with associated swelling and discharge observed more recently. - A scab was noted this morning, with soreness increasing upon certain movements and squeezing the abdomen. - The patient reports this as a first-time experience, with no prior hernial history. - The patient reports no gastrointestinal distress associated with meal ingestion, indicating the pain is likely not related to digestive processes. Plan Immediate management includes prescribing antibiotics to address potential infection at the umbilical site and advising the patient to avoid heavy lifting to prevent further strain. The patient is recommended to stay home and rest, with an ultrasound ordered to evaluate the abdominal swelling and discharge. The patient's antihypertensive regimen is continued, considering possible white coat hypertension. Monitoring and scheduled follow-up are planned to reassess both conditions comprehensively. Patient Instructions - Take the prescribed antibiotic as directed. - Avoid lifting heavy objects and any strenuous activities. - Rest at home for 2 days and monitor symptoms. - Consume light meals. - An ultrasound appointment will be scheduled; await notification. - Continue taking blood pressure medication as prescribed. - Report any increase in pain, swelling, or fever promptly. Orders: Orders 2 US abdomen complete Today R10.33 - Periumbilical pain Medications: New 2 amoxicillin-pot clavulanate 500-125 mg (Augmentin) 1 tab PO TID 21 tabs 0RF 7 days Coding Level of Care Code Est Pt Level 4 (12510) Diagnoses Periumbilical pain R10.33
== END 2024-03-21 15:32 | disposition home or self-care (01) ==
PROVIDERS: PCP Nurse Practitioner Family; Visit Provider Internal Medicine
DX: R10.33 Periumbilical pain (principal)

== ENCOUNTER → 2024-03-22 12:16 | Outpatient (BNV) | payer OTHER, SELFPAY | PROVIDERS: PCP Nurse Practitioner Family; Visit Provider Radiology Diagnostic Radiology | DX: R10.33 Periumbilical pain (principal) | CPT/HCPCS: 76705 ==

== ENCOUNTER 2024-03-23 08:11 | Outpatient (AMB) | payer OTHER, SELFPAY ==
--- OUTSIDE RECORDS SUMMARY | 2024-03-23 08:13 | XMS_ITS | Encounter Summary ---
Author Organization [facility] Address [address] [place] [address] Care Team Providers Care Disbursing Agent Name Role Phone Sterling Moreno NP Primary Care Provider Reason for Referral * Imaging (Routine) - Authorized Specialty Diagnoses / Procedures Referred By Contac t Referred To Contact Radiology Diagnoses Low back pain radiating to right leg Procedures MR Lumbar Spine wo Contrast Mally John PA [address] [facility], [facility] [address] [place] [address] [place] [id number] [place], [place] Referral ID Status Reason Start Date Expiration Date V isits Requested Visits Authorized [id number] Authorized 03/20/2024 03/20/2025 1 1 * Imaging (Routine) - Authorized Specialty Diagnoses / Procedures Referred By Contac t Referred To Contact Radiology Diagnoses Sacroiliitis (CMS/HCC) Procedures IR Inj Anes/Steroid Nerve Sacroiliac Joint Right Mally John PA [address] [facility], [address] [place] [address] [facility] [[email or web address]] Interventional Radiology [address] [place] [address] Referral ID Status Reason Start Date Expiration Date V isits Requested Visits Authorized [id number] Authorized 03/20/2024 03/20/2025 1 1 Reason for Visit * Reason Comments Sacral Iliac Joint Pain Eval for possibl e repeat injection Encounter Details Date Type Department Care Team (Late st Contact Info) Description 03/20/2024 10:15 AM EST Office Visit Neurosurgery [place] [facility] [address] [facility] [address] [place] [phone] Mally John PA [address] [facility], [address] [place] [address] Sacroiliitis (CMS/HCC) (Primary Dx); Low back pain [...] 25 gauge x 5/8 syringe BD Disp [place] 25G X 5/8 Misc
USE DIRECTED WEEKLY [...] PM EST [facility] Neurosurgical [place] documented in this encounter Plan of Treatment Upcoming Encounters Date Type Department Care Team (Late st Contact Info) Description 03/27/2024 11:30 AM EST Appointment Radiology Department [address] [phone] Scheduled Orders Name Type Priority Associated Diagnoses [...] 03/20/2024 added in this encounter Care Teams Disbursing Agent Relationship Specialty Start Date End Date Sterling Moreno NP [address] [facility] [place] PCP - General 05/15/22 documented as of this encounter
--- OUTSIDE RECORDS SUMMARY | 2024-03-23 08:13 | XMS_ITS | Encounter Summary ---
Author Organization [facility] Address [address] [place] [address] Care Team Providers Care Online Merchandising Specialist Name Role Phone Elmo Moreno NP Primary Care Provider Encounter Details Date Type Department Care Team ([facility] st Contact Info) Description 03/13/[address] [place] [address] Allison Euceda [place] Social History [...] 03/27/2024 11:30 AM EST Appointment Radiology Department - [address] [phone] documented as of this encounter Visit Diagnoses Not on filedocumented in this encounter Care Teams Online Merchandising Specialist Relationship Specialty Start Date End Date Elmo Moreno NP [address] [place], [place] PCP - General 05/15/22 documented as of this encounter
--- OUTSIDE RECORDS SUMMARY | 2024-03-23 08:13 | XMS_ITS | Clinical Summary ---
Author Organization [facility] Address [address] [place] [address] Care Team Providers Care Lithographing Machine Operator Name Role Phone Unavailable Primary Care Provider [...]
--- OUTSIDE RECORDS SUMMARY | 2024-03-23 08:14 | XMS_ITS | Clinical Summary ---
Author Organization 175 [facility] Address [address] [place] [address] Phone Care Team Providers Care Managed Services Sales Consultant Name Role Phone Elmo Moreno NP Primary Care Provider Allergies No known active allergies Medications Medication Sig Dispensed Refills Start Date End Date Status albuterol HFA (PROAIR HFA ; PROVENTIL HFA ; VENTOLIN HFA) 90 mcg/actuation inhaler INHALE 2 PUFFS BY MOUTH EVERY 6 HOURS NEEDED 2 Active syringe with needle, safety 1 mL 25 gauge x 5/8 syringe BD Disp [place] 25G X 5/8 Misc USE DIRECTED WEEKLY [...] 03/20/2024 10:15 AM EST Office Visit Neurosurgery [address] [phone] Mally John PA Sacroiliitis (CMS/HCC) (Primary Dx); Low back pain radiating to right leg 03/13/2024 Telephone Neurosurgery [address] [place] [address] [facility] Immunizations [...] 09/21/2023 3:56 PM EDT Plan of Treatment Upcoming Encounters Date Type Department Care Team (Late st Contact Info) Description 03/27/2024 11:30 AM EST Appointment Radiology Department [address] [phone] Health Maintenance Due Date Last Done Comments [...] age to complete this topic Care Teams Managed Services Sales Consultant Relationship Specialty Start Date End Date Elmo Moreno NP [address] [facility] [place] PCP - General 05/15/22
--- OUTSIDE RECORDS SUMMARY | 2024-03-23 08:14 | XMS_ITS | Clinical Summary ---
Author Organization [facility] Address [address] [place] [address] Care Team Providers Care Screed Operator Name Role Phone Elmo Moreno Primary Care Provider [phone] Allergies No known active allergies Medications Medication [...] Advance Directives For more information, please contact: [phone] Latest Code Status on File Code Status Date Activated Date Inactivated Comments Full Code 03/18/2020 12:11 PM 03/18/2020 9:28 PM This c ode status was ascertained in the following way: discussion with patient . Care Teams Screed Operator Relationship Specialty Start Date End Date Elmo Moreno: [phone] [address] [facility] [place] [address] PCP - General Family Medicine 03/07/20
--- NOTE | 2024-03-23 09:34 | MHC.PC.OV ---
Intake Visit Reasons: Discuss US Results~ Allergies No Known Allergies [No Known Allergies*] Allergy (Verified 03/23/24 09:35) Medication List - Last Reconciled 03/23/24 by Radha Espinoza MD albuterol sulfate 90 mcg/actuation (Ventolin HFA) 2 puffs inhalation Q4-6H PRN amoxicillin-pot clavulanate 500-125 mg (Augmentin) 1 tab PO TID 7 days famotidine (Pepcid) 20 mg PO BEDTIME lorazepam 0.5 mg PO DAILY PRN 30 days losartan-hydrochlorothiazide 100-25 mg 1 tab PO DAILY 90 days needle (disp) 22 G As directed needle (disp) 25 gauge (BD Regular Bevel [place]) As directed weekly - for testosterone subcutaneous injection omeprazole 20 mg PO DAILY syringe (disposable) (BD Luer-Christiano Syringe) Testosterone injection weekly tadalafil 20 mg PO ONCE PRN 30 days testosterone cypionate (Depo-Testosterone) 100 mg (0.5 mL) subcut QWEEK 4 weeks Tobacco use date assessed: 03/23/24 Dental Screening Dental Screen Date: 03/23/24 Did you have a dental visit in the last 12 months?: Yes Did you have a dental problem in the last 6 months where you did not have access to dental care?: No Was dental information given to patient?: Patient has dentist HPI Discuss US Results~ HPI Details History - The patient is a 43 year old male presenting with worsening pain related to a right-sided periumblicalabdominal wall hernia. - Pain, initially presenting as soreness, has worsened when lying on the side and during physical activities. - Treatment with Augmentin for three days has not alleviated symptoms. - An ultrasound confirmed the diagnosis of a right-sided abdominal wall hernia. - Concerns were discussed regarding potentially severe complications from the hernia, necessitating urgent care if pain worsens. - The patient is awaiting further assessment from a environmental management specialist, with the possibility of emergency intervention suggested if required. - Patient was urged to go to ER to avoid complication but he is reluctant stat surgery consulation requested Problem List - Right-sided abdominal wall hernia Patient Instructions - Avoid physical work activities until the condition is resolved and cleared by a surgeon. - If pain worsens or is unmanageable, visit the emergency room immediately as further complications may require urgent attention. - Expect a call from the surgeon to schedule an appointment, but plan ahead as it may not happen before Wednesday. - Continue with prescribed medications unless otherwise advised by healthcare providers. Review of Systems - General: No fever no chills - Neurological: No headaches no dizziness - Ear nose throat: No sore throat no hearing difficulty no ear pain - Cardiovascular: No syncope, no chest pain, no palpitations - Gastrointestinal: No nausea vomiting or diarrhea - Endocrine: No polyuria polydipsia no heat intolerance - Genitourinary: No dysuria , no blood in urine [facility] Medical History Tubular adenoma of colon GERD (gastroesophageal reflux disease) Anxiety with depression PTSD (post-traumatic stress disorder) Lumbar stenosis HTN (hypertension) Sleep apnea Hypogonadism in male BPH (benign prostatic hyperplasia) Renal calculi CKD (chronic kidney disease) Right foot pain Surgical History Status post right foot surgery Family History Father No problems noted. Mother No problems noted. Social History Housing: House Alcohol intake: current Alcohol intake frequency: holidays/special occasions only Patient Tobacco Use Status: Former Tobacco user e-Cigarette/Vaping Use: Never Used Current occupational status: employed Cognitive needs: No Hearing needs: No Vision needs: No Questionnaire Thrive Questionnaire Date Thrive assessed: 06/12/21 AUDIT C Alcohol Use Questionnaire (AUDIT-C) 1. How often do you have a drink containing alcohol?: 4 or more times a week 2. How many drinks containing alcohol do you have on a typical day when you are drinking?: 5 or 6 3. How often do you have six or more drinks on one occasion?: Weekly Total Score: 9 Score Reviewed/Action Taken: Yes RETA-7 AMB Questionnaire RETA-7 Date RETA - 7 assessed: 06/12/21 Source: Developed by Drs. Chuckie Poon, Shayy Fleming, Jared Simms and colleagues, with an educational bharath from [employer]. Physical exam (Primary Care) Tobacco/Smoking Status: Tobacco use Status Tobacco use date assessed 03/23/24 03/23/24 09:35 Patient Tobacco Use Status Former Tobacco user 03/23/24 09:35 e-Cigarette/Vaping Use Never Used 03/23/24 09:35 Thrive Assessment: Date of Thrive Assessment Date Thrive assessed 06/12/21 03/23/24 09:35 Telehealth Telehealth Telehealth Platform: [facility] [employer] Location of provider rendering services: practice address Location of patient: address on file Patient Identification confirmed using: Name, : Yes Telehealth method: video (attempted) Patient verbally consented to treatment: Yes Patient verbally consented to billing insurance company: Yes Patient informed of any privacy concerns related to visit: Yes Minutes spent on Phone/Video with Pt.: 16 Coding Level of Care Code Tele Est Pt Level 3 (30731) Diagnoses Periumbilical pain R10.33 Hernia of abdominal wall K43.9 Assessment & Plan Assessment & Plan (1) Periumbilical pain: Code(s): R10.33 - Periumbilical pain Category: Medical (2) Hernia of abdominal wall: Code(s): K43.9 - Ventral hernia without obstruction or gangrene Category: Medical Plan History - The patient is a 43 year old male presenting with worsening pain related to a right-sided periumblicalabdominal wall hernia. - Pain, initially presenting as soreness, has worsened when lying on the side and during physical activities. - Treatment with Augmentin for three days has not alleviated symptoms. - An ultrasound confirmed the diagnosis of a right-sided abdominal wall hernia. - Concerns were discussed regarding potentially severe complications from the hernia, necessitating urgent care if pain worsens. - The patient is awaiting further assessment from a environmental management specialist, with the possibility of emergency intervention suggested if required. - Patient was urged to go to ER to avoid complication but he is reluctant stat surgery consulation requested Problem List - Right-sided abdominal wall hernia Patient Instructions - Avoid physical work activities until the condition is resolved and cleared by a surgeon. - If pain worsens or is unmanageable, visit the emergency room immediately as further complications may require urgent attention. - Expect a call from the surgeon to schedule an appointment, but plan ahead as it may not happen before Wednesday. - Continue with prescribed medications unless otherwise advised by healthcare providers. Orders: Referrals General Surgery Referral K43.9 - Ventral hernia without obstruction or gangrene, R10.33 - Periumbilical pain
== END 2024-03-23 10:08 | disposition home or self-care (01) ==
LOC: HO.HMCC 08:11
PROVIDERS: PCP Nurse Practitioner Family; Visit Provider Internal Medicine
DX: R10.33 Periumbilical pain (principal); K43.9 Ventral hernia without obstruction or gangrene

== ENCOUNTER → 2024-03-23 08:11 | Outpatient (BNVA) | payer OTHER, SELFPAY | PROVIDERS: PCP Nurse Practitioner Family; Visit Provider Internal Medicine ==

== ENCOUNTER 2024-03-27 12:26 | Outpatient (REF) | payer OTHER, SELFPAY ==
--- OUTSIDE RECORDS SUMMARY | 2024-03-27 13:29 | XMS_ITS | Encounter Summary ---
Author Organization [facility] Address [address] [place] [address] Care Team Providers Care Railway Signal Operator Name Role Phone Elmo Moreno NP Primary Care Provider [phone] Reason for Referral * Imaging (Routine) - Authorized Specialty Diagnoses / Procedures Referred By Contac t Referred To Contact Radiology Diagnoses Low back pain radiating to right leg Procedures MR Lumbar Spine wo Contrast Mally John PA [address] Phone: tel: fax: Radiology Department [address] Phone: tel: fax: Referral ID Status Reason Start Date Expiration Date V isits Requested Visits Authorized [id number] Authorized 03/20/2024 03/20/2025 1 1 Reason for Visit * Imaging (Routine) - Authorized Specialty Diagnoses / Procedures Referred By Contac t Referred To Contact Radiology Diagnoses Low back pain radiating to right leg Procedures MR Lumbar Spine wo Contrast Mally John PA [address] [place] [address], [address] Phone: tel: fax: Radiology Department - [address] Phone: tel: fax: Referral ID Status Reason Start Date Expiration Date V isits Requested Visits Authorized [id number] Authorized 03/20/2024 03/20/2025 1 1 Encounter Details Date Type Department Care Team (Latest Contact Info) Description 03/27/2024 11:30 AM EST Hospital Encounter Radiology Department - [address] [address] Low back pain radiating to right leg Social History Tobacco Use Types Packs/Day Years Used Date Smoking Tobacco: Never Smokeless Tobacco: Never Sex and Gender Information Value Date Recorded Sex Assigned at Not on file Legal Sex Male 7:57 PM EST Gender Identity Not on file Sexual Orientation Not on file documented as of this encounter Plan of Treatment Pending Results Name Type Priority Associated Diagnoses Date /Time MR Lumbar Spine wo Contrast Imaging Routine Low back pain radiating to right leg 03/27/2024 12:14 PM EST Scheduled Orders Name Type Priority Associated Diagnoses Orde r Schedule MR Lumbar Spine wo Contrast Imaging Routine Low back pain radiating to right leg Once for 1 Occurrences starting 03/27/2024 until 03/27/2024 documented as of this encounter Visit Diagnoses Diagnosis Low back pain radiating to right leg Lumbago documented in this encounter Care Teams Railway Signal Operator Relationship Specialty Start Date End Date Elmo Moreno NP [address] [place], [place] PCP - General 05/15/22 documented as of this encounter
--- OUTSIDE RECORDS SUMMARY | 2024-03-27 13:29 | XMS_ITS | Clinical Summary ---
Author Organization [facility] Address [address] [place] [address] Phone Care Team Providers Care Health And Wellness Director Name Role Phone Elmo Moreno NP Primary Care Provider Allergies No known active allergies Medications albuterol HFA (PROAIR HFA ; PROVENTIL HFA ; VENTOLIN HFA) 90 mcg/actuation inhaler INHALE 2 PUFFS BY MOUTH EVERY 6 HOURS NEEDED 022 Active syringe with needle, safety 1 mL 25 gauge x 5/8 syringe BD Disp [place] 25G X 5/8 Misc USE DIRECTED WEEKLY FOR TESTOSTERONE SUBCUTANEOUS INJECTION 023 Active syringe, disposable, 1 mL (BD LUER-SHRUTHI SYRINGE MISC) B-D SYRINGE LUER-SHRUTHI 1CC 1 ML Misc USE DIRECTED WITH TESTOSTERONE INJECTION WEEKLY 022 Active losartan-hydr oCHLOROthiazi de (HYZAAR) 100-12.5 mg per tablet Take 1 Tablet by mouth. 022 Active testosterone cypionate (DEPO-TESTOTE XIAO) 200 mg/mL injection INJECT 0.4 ML SUBCUTANEOUSLY EVERY WEEK FOR 4 WEEKS 022 Active omeprazole (PriLOSEC) [address] capsule 025 Active tadalafiL (CIALIS) 20 mg tablet TAKE 1 TABLET NEEDED FOR SEXUAL ACTIVITY 025 Active lidocaine (LIDODERM) 5 % patch Apply topically 1 (one) time each day. Remove & discard patch within 12 hours or as directed by . 30 patch 1 025 Active aspirin 81 mg EC tablet TAKE 1 TABLET BY MOUTH DAILY X 4 WEEKS 023 2024 Discontinued cetirizine (ZyrTEC) 10 mg tablet TAKE 1 TABLET BY MOUTH EVERY DAY NEEDED FOR ALLERGY SYMPTOMS 023 2024 Discontinued cyclobenzapri ne (FLEXERIL) 10 mg tablet TAKE 1 TABLET BY MOUTH EVERY NIGHT AT BEDTIME 023 2024 Discontinued lidocaine (LIDODERM) 5 % patch APPLY 1 PATCH TOPICALLY EVERY DAY NEEDED FOR PAIN 022 2024 Discontinued(R eorder) LORazepam (ATIVAN) 0.5 mg tablet TAKE 1 TABLET BY MOUTH DAILY NEEDED FOR ANXIETY 023 2024 Discontinued meloxicam (MOBIC) 15 mg tablet TAKE 1 TABLET BY MOUTH EVERY NIGHT AT BEDTIME 023 2024 Discontinued omeprazole OTC (PriLOSEC OTC) 20 mg EC tablet Take 20 mg by mouth. 022 2024 Discontinued ondansetron (ZOFRAN) 4 mg tablet TAKE 1 TABLET BY MOUTH EVERY 6 TO 8 HOURS NEEDED FOR NAUSEA 023 2024 Discontinued oxyCODONE (ROXICODONE) 5 mg immediate release tablet TAKE 1 TABLET BY MOUTH EVERY 8 HOURS NEEDED FOR PAIN 023 2024 Discontinued predniSONE (DELTASONE) 20 mg tablet TAKE 3 TABLETS BY MOUTH DAILY FOR 6 DAYS. DO NOT TAKE WITH MELOXICAM OR ANY OVER THE COUNTER NSAIDS 023 2024 Discontinued tadalafiL (CIALIS) 10 mg tablet TAKE ONE TABLET BY MOUTH EVERY DAY NEEDED FOR SEXUAL ACTIVITY 023 2024 Discontinued famotidine (PEPCID) 20 mg tablet Take 1 tablet (20 mg total) by mouth. at bedtime. 024 2024 Discontinued(D iscontinued by another clinician) naproxen (NAPROSYN) 500 mg tablet Take 1 tablet (500 mg total) by mouth 2 (two) times a day. 2024 Discontinued Active Problems Problem Noted Date Diagnosed [...] Overview (03/14/2024): Last Assessment & Plan: Mr. Mary is once again having trouble with bilateral [...] morning 8/10, during the day while working 3-05/25, with rest and evening 810 or higher. When the right SI joint pain is severe he will get pain in the posterior lateral leg to the ankle, tingling in all digits of the right foot. He takes naproxen every morning. Prior SI joint injections: 10/04/2023, 04/28/2023, 08/14/2022, 05/08/2022, 10/15/2021. Most recent 3 injections were bilateral SI joint injections. Mr. Mary most recent MRI lumbar spine was 05/12/2021 [...] Encounters Date Type Department Care Team Description 03/27/2024 11:30 AM EST Hospital Encounter Radiology Department - [address] [address] Low back pain radiating to right leg 03/20/2024 10:15 AM EST Office Visit Neurosurgery [place] [address] [place] [address] Mally John PA Sacroiliitis (CMS/HCC) (Primary Dx); Low back pain radiating to right leg 03/13/2024 Telephone Neurosurgery [place] [facility] [address] [place] [address] Allison Euceda MA from Last 3 Months Immunizations Name [...] on patient's age to complete this topic Meningococcal B Vacine Aged Out No lo nger eligible based on patient's age to complete [...] on patient's age to complete this topic Insurance [employer] Care Teams Health And Wellness Director Relationship Specialty Start Date End Date Elmo Moreno NP [address] [facility] L[place] PCP - General 05/15/22
--- OUTSIDE RECORDS SUMMARY | 2024-03-27 13:29 | XMS_ITS | Encounter Summary ---
Author Organization [facility] Address [address] [place] [address] Care Team Providers Care Slumber Room Attendant Name Role Phone Sterling Moreno NP Primary Care Provider + [phone] Reason for Referral * Imaging (Routine) - Authorized Specialty Diagnoses / Procedures Referred By Contac t Referred To Contact Radiology Diagnoses Low back pain radiating to right leg Procedures MR Lumbar Spine wo Contrast Mally John PA 175 [facility], [address] [address] Phone: tel: fax: Radiology Department [address] Phone: tel: fax: Referral ID Status Reason Start Date Expiration Date V isits Requested Visits Authorized [id number] Authorized 03/20/2024 03/20/2025 1 1 * Imaging (Routine) - Authorized Specialty Diagnoses / Procedures Referred By Contac t Referred To Contact Radiology Diagnoses Sacroiliitis (CMS/HCC) Procedures IR Inj Anes/Steroid Nerve Sacroiliac Joint Right Mally John PA 175 [facility], [address] [place] [address] Phone: tel: fax: [facility] Interventional Radiology [address] [place] [address] Phone: tel: Referral ID Status Reason Start Date Expiration Date V isits Requested Visits Authorized [id number] Authorized 03/20/2024 03/20/2025 1 1 Reason for Visit * Reason Comments Sacral Iliac Joint Pain Eval for possibl e repeat injection Encounter Details Date Type Department Care Team (Late st Contact Info) Description 03/20/2024 10:15 AM EST Office Visit Neurosurgery [facility] [address] [place] [address] Mally John PA 175 [facility], [address] [place] [address] Sacroiliitis (CMS/HCC) (Primary Dx); Low back pain [...] of this encounter Ordered Prescriptions Prescription Sig Dispense Quantity Refills Last Filled Start Date End Date lidocaine (LIDODERM) 5 % patch Apply topically [...] morning 8/10, during the day while working 3-10, with rest and evening 8/10 or higher. [...] 12 hours or as directed by . losartan-hydroCHLOROthiazide (HYZAAR) 100-12.5 mg per tablet Take 1 Tablet by mouth. omeprazole (PriLOSEC) [address] capsule syringe with needle, safety 1 mL 25 gauge x 5/8 syringe BD Disp [place] 25G X 5/8 Misc
USE DIRECTED WEEKLY [...] PM EST [facility] [place] documented in this encounter Plan of Treatment Pending Results [...] may reflect changes made after this encounter. tadalafiL (CIALIS) 20 mg tablet TAKE 1 TABLET NEEDED FOR SEXUAL ACTIVITY 03/09/2024 omeprazole (PriLOSEC) [address] capsule 02/24/2024 naproxen (NAPROSYN) 500 mg tablet Take 1 tablet (500 mg total) by mouth 2 (two) times a day. 03/20/2024 famotidine (PEPCID) 20 mg tablet Take 1 tablet (20 mg total) by mouth. at bedtime. 05/19/2023 03/20/2024 added in this encounter Care Teams Slumber Room Attendant Relationship Specialty Start Date End Date Sterling Moreno NP [address] [facility] [place], [place] PCP - General 05/15/22 documented as of this encounter
--- OUTSIDE RECORDS SUMMARY | 2024-03-27 13:29 | XMS_ITS | Encounter Summary ---
Author Organization [facility] Address [address] [place] [address] Care Team Providers Care Extrusion Utility Worker Name Role Phone Elmo Moreno NP Primary Care Provider Encounter Details Date Type Department Care Team (Late st Contact Info) Description 03/13/[address] [place] [address] Allison Euceda [place] Social History [...] on filedocumented in this encounter Care Teams Extrusion Utility Worker Relationship Specialty Start Date End Date Elmo Moreno NP [address] [facility] [place] PCP - General 05/15/22 documented as of this encounter
--- OUTSIDE RECORDS SUMMARY | 2024-03-27 13:29 | XMS_ITS | Clinical Summary ---
Author Organization [facility] Address [address] [place] [address] Care Team Providers Care Milk Hauler Name Role Phone Elmo Moreno Primary Care Provider [phone] Allergies No known active allergies Medications Medication [...] Advance Directives For more information, please contact: [phone] Latest Code Status on File Code Status Date Activated Date Inactivated Comments Full Code 03/18/2020 12:11 PM 03/18/2020 9:28 PM This c ode status was ascertained in the following way: discussion with patient . Care Teams Milk Hauler Relationship Specialty Start Date End Date Elmo Moreno: [phone] [address] [facility] [place] [address] PCP - General Family Medicine 03/07/20
--- OUTSIDE RECORDS SUMMARY | 2024-03-27 13:30 | XMS_ITS | Continuity of Care Document ---
Author Name [facility] Organization [facility] Care Team Providers Care Toolman Name Role Phone [facility] Unavailable Unavailable Problems Combined list of problems from 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 It does not include entries that were removed or entered in error. Problem Status Onset Date Problem Type Date of Resolution Comments Source Other hammer toe(s) (acquired), right foot Active 1898 Condition DoD Anxiety (SCT [id number]) Active Condition [facility] Chronic back pain Active Condition [facility] Chronic kidney disease stage 3A Active Condition Mar 03 Entered By: EDITH ALEJANDRO Comment: Stage 3a chronic kidney disease 03/02/2021 [facility] Contact dermatitis Active Condition [facility] Degenerative Joint Disease of Shoulder Region (SCT [id number]) Active Condition [facility] Dermatophytosis Active Condition Mar 03, 2024 Entered By: EDITH ALEJANDRO Comment: Dermatophytosis tinea cruris [facility] Erectile Dysfunction (SCT [id number]) Active Condition [facility] GERD - Gastro-Esophageal Reflux Disease (SCT [id number]) Active Condition [facility] Gout Active Condition [facility] Hammer toe Active Condition Mar 03 Entered By: EDITH ALEJANDRO Comment: hammer toe(s) (acquired), right foot [facility] History of nicotine dependence Active Condition [facility] HTN - Hypertension (SCT [id number]) Active Condition [facility] Pain in Lumbar Spine (SCT [id number]) Active Condition [facility] [...] ICD-10-CM Z71.89 Other specified counseling Active Diagnosis [facility] Diagnosis: ICD-10-CM I10 Essential (primary) hypertension Active Diagnosis [facility] Medications Combined list of outpatient medications from [...] ORAL, IVAX PHARMACEUT, 100 ea. BOTTLE Active [id number] 2023 90 Pharmac y Data Transac tion Service Facilit y hydroCHLORO thiazide 12.5 mg oral tablet hydroCHL OROthiaz magda 12.5 mg oral tablet Start Date: 10/08/20 Status: Ordered Ordered No Facilit y Access HYDROCHLORO THIAZIDE 25MG/LOSART AN POTASSIUM 100MG TAB TAKE ONE TABLET BY MOUTH ORAL ACTIVE GERARD RODRIGUEZ 2024 [facility] ibuprofen 600 mg oral tablet ibuprofe n 600 mg oral tablet Start Date: 10/29/20 Status: Ordered Ordered No Facilit y Access lidocaine 5% topical film lidocain e 5% topical film Start Date: 05/27/20 Status: Ordered Ordered No Facilit y Access LORAZEPAM (lorazepam) , 0.5 MG, TABLET, ORAL, AUROBINDO PHARM, 500 ea. BOTTLE Active [id number] 2023 30 Pharmac y Data Transac tion Service Facilit y LORAZEPAM (lorazepam) , 0.5 MG, TABLET, ORAL, AUROBINDO PHARM, 500 ea. BOTTLE Active [id number] 2023 30 Pharmac y Data Transac tion Service Facilit y LORAZEPAM (lorazepam) , 0.5 MG, TABLET, ORAL, TEVA [place], 500 ea. BOTTLE Active [id number] 2023 30 Pharmac y Data Transac tion Service Facilit y LORAZEPAM 0.5MG TAB TAKE ONE TABLET BY MOUTH ORAL ACTIVE MICHAEL GERARD 2024 [facility] LOSARTAN-HY DROCHLOROTH IAZIDE (LOSARTAN/H YDROCHLOROT HIAZIDE), 100MG-25MG, TABLET, ORAL, AUROBINDO PHARM, 90 ea. BOTTLE Active [id number] 2023 90 Pharmac y Data Transac tion Service Facilit y LOSARTAN-HY DROCHLOROTH IAZIDE (LOSARTAN/H YDROCHLOROT HIAZIDE), 100MG-25MG, TABLET, ORAL, AUROBINDO PHARM, 90 ea. BOTTLE Active [id number] 4 2023 90 Pharmac y Data Transac [...] MISCELL, NAVEED JAIME, 100 ea. RODRIGUEZ cárdenas [id number] : 2023 0 Pharmac y Data Transac tion Service Facilit y meloxicam 15 mg oral tablet meloxica m 15 mg oral tablet Start Date: 04/17/21 Status: Ordered Ordered No Facilit y Access NAPROXEN (NAPROXEN), 500MG, TABLET, ORAL, GLENMARK PHARMA, 500 ea. BOTTLE Active [id number] 2023 60 Pharmac y Data Transac tion Service Facilit y NAPROXEN (NAPROXEN), 500MG, TABLET, ORAL, GLENMARK PHARMA, 500 ea. BOTTLE Active [id number] 2023 60 Pharmac y Data Transac tion Service Facilit y NAPROXEN 500MG TAB TAKE ONE TABLET BY MOUTH ORAL ACTIVE MICHAEL GERARD 2024 [facility] OMEPRAZOLE (omeprazole ), 20 MG, CAPSULE DR ORAL, Olo, 1000 ea. BOTTLE Active [id number] 2023 90 Pharmac y Data Transac tion Service Facilit y omeprazole 20 mg oral delayed release capsule omeprazo le 20 mg oral delayed release capsule Start Date: 04/16/21 Status: Ordered Ordered No Facilit y Access OMEPRAZOLE 20MG CAP,EC TAKE 1 CAPSULE BY MOUTH EVERY MORNING 30 MINUTES BEFORE BREAKFAS T ORAL ACTIVE GERARD RODRIGUEZ 2024 [facility] oxyCODONE 5 mg oral [...] BD MEDICAL SURG, 100 ea. RODRIGUEZ cárdenas [id number] : 2023 0 Pharmac y Data Transac [...] INTRAM USCULA R ACTIVE GERARD RODRIGUEZ 2024 [facility] tiZANidine 2 mg oral [...] Site Reaction Lot Number CVX Code Drug Steel Erector Status Comments Source ANTHRAX VACCINE, UNSPECIFIED 6 2023 319 complet ed Lot#: [id number] [facility] Influenza, injectable, quadrivalent, preservative free 2021 [id number] Celator PharmaceuticalsKline (SKB) complet ed Influenza , injectabl e, quadrival ent, preservat gauri free [facility] tetanus, diphtheria, acellular pertu is 2021 [id number] sanofi pasteur complet ed tetanus, diphtheri a, acellular pertussis 04/24/21 Given Ambulat ory Pharmac y TDAP 2 2021 115 complet ed tetanus toxoid, reduced diphtheri a toxoid, and acellular pertussis vaccine, adsorbed Lot#: [id number] Mfr: SANOFI PASTEUR [facility] tetanus toxoid, reduced diphtheria toxoid, and acellular pertu is vaccine, adsorbed 2 2021 [id number] Sanofi Pasteur (PMC) complet ed tetanus toxoid, reduced diphtheri a toxoid, and acellular pertussis vaccine, adsorbed DoD influenza virus vaccine, inactivated 2020 [id number] Seqirus complet ed influenza virus vaccine, inactivat ed 01/18/21 Given Ambulat ory Pharmac y Influenza, injectable, Madin Orly Canine Kidney, quadrivalent with preservative 9 2020 [id number] Seqirus (SEQ) comple t ed Influenza [...] 100 mcg or 50 mcg dose Lot#: [id number] Mfr: NolioA Virtualtwo. [facility] SARS-COV-2 (COVID-19) vaccine, mRNA, spike protein, LNP, preservative free, 100 mcg or 50 mcg dose 2 2020 [id number] Yapert, E la Carte. (MOD) complet ed SARS-COV- 2 (COVID-19 ) [...] 100 mcg or 50 mcg dose Lot#: [id number] Mfr: NolioA [employer]. [facility] SARS-COV-2 (COVID-19) vaccine, mRNA, spike protein, LNP, preservative free, 100 mcg or 50 mcg dose 1 2020 Moderna Yapert, E la Carte. (MOD) complet ed SARS-COV- 2 (COVID-19 ) vaccine, mRNA, spike protein, LNP, preservat gauri free, 100 mcg or 50 mcg dose DoD influenza, injectable, quadrivalent- pf 2019 [id number] 077 150 Seqirus complet ed influenza , injectabl e, quadrival ent-pf 12/31/19 Given Ambulat ory Pharmac y Influenza, injectable, quadrivalent, preservative free 1 2019 [id number] 077 150 Seqirus (SEQ) complet ed Influenza , injectabl e, quadrival ent, preservat gauri free DoD influenza, injectable, quadrivalent- pf 2018 [id number] 520 150 Seqirus complet ed influenza , injectabl e, quadrival ent-pf 11/20/18 Given Ambulat ory Pharmac y Influenza, injectable, quadrivalent, preservative free 17 2018 [id number] 520 150 Seqirus (SEQ) complet ed Influenza [...] typhoid Vi capsular polysaccharid e vac 2017 [id number] sanofi pasteur complet ed typhoid Vi capsular polysacch aride vac 06/20/17 Given Ambulat ory Pharmac y TYPHOID, VICPS 2017 101 complet ed typhoid Vi capsular polysacch aride vaccine Lot#: [id number] Mfr: SANOFI PASTEUR [facility] [place] [facility] typhoid Vi capsular polysaccharid e vaccine 5 2017 [id number] Sanofi Pasteur ([facility]) complet ed typhoid Vi capsular polysacch aride [...] virus vaccine DoD influenza, seasonal, injectable 2016 [id number] complet ed influenza , seasonal, injectabl e 12/13/16 Given Ambulat ory Pharmac y Influenza, seasonal, injectable, preservative free 2016 NEW, () Not Given Influenza , seasonal, injectabl e, preservat gauri free DoD Influenza, seasonal, injectable 1 2016 [id number] 141 Transcribed (TRS) complet ed Influenza , [...] gauri DoD influenza, live, intranasal,qu adrivalent 2014 [id number] 149 Medimmune Inc comple t ed influenza , live, intranasa l,quadriv alent 11/20/14 Given Ambulat ory Pharmac y influenza, live, intranasal, quadrivalent 13 2014 [id number] 149 MedImmune, Inc. (MED) complet ed influenza , live, intranasa l, quadrival ent DoD influenza, live, intranasal,qu adrivalent 2013 [id number] 149 Medimmune Inc comple t ed influenza , live, intranasa l,quadriv alent 12/14/13 Given Ambulat ory Pharmac y influenza, live, intranasal, quadrivalent 12 2013 [id number] 149 MedImmune, Inc. (MED) complet ed influenza , live, intranasa l, quadrival ent DoD influenza, live, intranasal,qu adrivalent 2012 [id number] 149 Medimmune Inc comple t ed influenza , live, intranasa l,quadriv alent 10/13/12 Given Ambulat ory Pharmac y influenza, live, intranasal, quadrivalent 0 2012 [id number] 149 MedImmune, Inc. (MED) complet ed influenza , live, intranasa l, quadrival ent DoD typhoid Vi capsular polysaccharid e vac 2012 [id number] 101 sanofi pasteur complet ed typhoid Vi capsular polysacch aride vac 08/16/12 Given Ambulat ory Pharmac y anthrax vaccine 2012 [id number] 24 Emergent Biosolutions complet ed anthrax vaccine 08/16/12 Given Ambulat ory Pharmac y ANTHRAX VACCINE, UNSPECIFIED 7 2012 319 complet ed Lot#: [id number] [facility] anthrax vaccine 7 2012 [id number] 24 Emergent BioDefense Operations [place] ([facility]) complet ed anthrax vaccine DoD typhoid Vi capsular polysaccharid e vaccine 4 2012 [id number] 101 Sanofi Pasteur (PMC) complet ed typhoid Vi capsular polysacch aride vaccine DoD influenza virus vaccine, live 2011 [id number] 111 2can Inc comple t ed influenza virus vaccine, live 10/30/11 Given Ambulat ory Pharmac y influenza virus vaccine, live, attenuated, for intranasal use 0 2011 [id number] 111 Wikidot, E la Carte. (MED) complet ed influenza virus vaccine, live, attenuate d, for intranasa l use DoD tetanus, diphtheria, acellular pertu is 2011 [id number] 115 GlaxoSmithKli ne complet ed tetanus, diphtheri a, acellular pertussis 05/22/11 Given Ambulat ory Pharmac y TDAP 2011 115 complet ed tetanus toxoid, reduced diphtheri a toxoid, and acellular pertussis vaccine, adsorbed Lot#: [id number] A [facility] [place] [facility] tetanus toxoid, reduced diphtheria toxoid, and acellular pertu is vaccine, adsorbed 0 2011 [id number] 115 [facility] (SKB) complet ed tetanus toxoid, reduced diphtheri a toxoid, and acellular pertussis vaccine, adsorbed DoD anthrax vaccine 2011 [id number] 24 Emergent Biosolutions complet ed anthrax vaccine 03/09/11 Given Ambulat ory Pharmac y typhoid Vi capsular polysaccharid e vac 2011 [id number] 101 sanofi pasteur complet ed typhoid Vi capsular polysacch aride vac 03/09/11 Given Ambulat ory Pharmac y ANTHRAX VACCINE, UNSPECIFIED 6 2011 319 complet ed Lot#: [id number] [facility] TYPHOID, VICPS 3 2011 101 complet ed typhoid Vi capsular polysacch aride vaccine Lot#: [id number] Mfr: SANOFI PASTEUR [facility] anthrax vaccine 6 2011 [id number] Emergent BioDefense [employer] [place] ([facility]) complet ed anthrax vaccine DoD typhoid Vi capsular polysaccharid e vaccine 3 2011 [id number] 101 Sanofi Pasteur (PMC) complet ed typhoid Vi capsular polysacch aride vaccine DoD influenza virus vaccine, live 2010 [id number] 111 2can Inc comple t ed influenza virus vaccine, live 11/04/10 Given Ambulat ory Pharmac y influenza virus vaccine, live, attenuated, for intranasal use 9 2010 [id number] 111 Wikidot, E la Carte. (MED) complet ed influenza virus vaccine, live, attenuate d, for intranasa l use [facility] influenza virus vaccine,split 2009 [id number] 15 sanofi pasteur complet ed influenza virus vaccine,s plit 11/04/09 Given Ambulat ory Pharmac y influenza virus vaccine, split virus (incl. purified surface antigen)-reti red CODE 8 2009 [id number] 15 Sanofi Pasteur ([facility]) complet ed influenza virus vaccine, split virus (incl. purified surface antigen)- retired CODE DoD anthrax vaccine 2009 [id number] Emergent Biosolutions complet ed anthrax vaccine 09/04/09 Given Ambulat ory Pharmac y anthrax vaccine 5 2009 [id number] Emergent BioDefense Operations [place] ([facility]) complet ed anthrax vaccine DoD Novel influenza-H1N 1-09,pf,injec table 2009 [id number] 1 126 Novartis Pharmaceutica ls complet ed Novel influenza -E2H8-93, pf,inject able 02/25/09 Given Ambulat ory Pharmac y Novel influenza-H1N 1-09, preservative- free, injectable 1 2009 [id number] 1 126 Novartis Pharmaceutica l Tyshawn. (NOV) complet ed Novel influenza -B4Q1-07, preservat guari-free, injectabl e DoD influenza virus vaccine, live 2008 [id number] 111 2can Inc comple t ed influenza virus vaccine, live 10/26/08 Given Ambulat ory Pharmac y influenza virus vaccine, live, attenuated, for intranasal use 1 2008 [id number] 111 Wikidot, E la Carte. (MED) complet ed influenza virus vaccine, live, attenuate d, for intranasa l use DoD anthrax vaccine 2008 [id number] Emergent Biosolutions complet ed anthrax vaccine 03/27/08 Given Ambulat ory Pharmac y ANTHRAX VACCINE, UNSPECIFIED 5 2008 319 complet ed Lot#: [id number] [facility] anthrax vaccine 5 2008 [id number] [employer] [place] (MIP) complet ed anthrax vaccine DoD influenza virus vaccine,split 2007 [id number] 15 CSL Behring complet ed influenza virus vaccine,s plit 11/14/07 Given Ambulat ory Pharmac y influenza virus vaccine, split virus (incl. purified surface antigen)-reti red CODE 1 2007 [id number] 15 CS Appatureherapies, Inc. (CSL) complet ed influenza virus vaccine, split virus (incl. purified surface antigen)- retired CODE DoD anthrax vaccine 2007 [id number] Emergent Biosolutions complet ed anthrax vaccine 09/12/07 Given Ambulat ory Pharmac y ANTHRAX VACCINE, UNSPECIFIED 4 2007 319 complet ed Lot#: [id number] [facility] anthrax vaccine 4 2007 [id number] 24 Emergent BioDefense Operations [place] (MIP) complet ed anthrax vaccine DoD anthrax vaccine 2007 [id number] 24 Emergent Biosolutions complet ed anthrax vaccine 03/30/07 Given Ambulat ory Pharmac y ANTHRAX VACCINE, UNSPECIFIED 3 2007 319 complet ed Lot#: [id number] [facility] anthrax vaccine 3 2007 [id number] [employer] [place] (MIP) complet ed anthrax vaccine DoD anthrax vaccine 2007 [id number] Emergent Biosolutions complet ed anthrax vaccine 03/10/07 Given Ambulat ory Pharmac y ANTHRAX VACCINE, UNSPECIFIED 2 2007 319 complet ed Lot#: [id number] [facility] anthrax vaccine 2 2007 [id number] 24 Emergent [employer] [place] (MIP) complet ed anthrax vaccine DoD anthrax vaccine 2007 [id number] Emergent Biosolutions complet ed anthrax vaccine 02/21/07 Given Ambulat ory Pharmac y ANTHRAX VACCINE, UNSPECIFIED 1 2007 319 complet ed Lot#: [id number] [facility] anthrax vaccine 1 2007 [id number] [employer] [place] (MIP) complet ed anthrax vaccine DoD vaccinia (smallpox) vaccine 0 2007 75 () Not Given vaccinia (smallpox ) vaccine DoD influenza virus vaccine, live 2006 [id number] 111 2can Inc comple t ed influenza virus vaccine, live 01/10/07 Given Ambulat ory Pharmac y influenza virus vaccine, live, attenuated, for intranasal use 1 2006 [id number] 111 Wikidot, Inc. (MED) complet ed influenza virus vaccine, live, attenuate d, for intranasa l use DoD typhoid vaccine, live, oral 2006 [id number] 25 [employer] [place] complet ed typhoid vaccine, live, oral 03/05/06 Given Ambulat ory Pharmac y typhoid vaccine, live, oral 1 2006 [id number] 25 Giftxoxo ([facility]) complet ed typhoid vaccine, live, oral DoD influenza virus vaccine, live 2005 [id number] 111 2can Inc comple t ed influenza virus vaccine, live 12/04/05 Given Ambulat ory Pharmac y influenza virus vaccine, live, attenuated, for intranasal use 1 2005 [id number] 111 Wikidot, Inc. (MED) complet ed influenza virus vaccine, live, attenuate d, for intranasa l use DoD influenza virus vaccine, live 2004 [id number] 111 MedieASIC Inc comple t ed influenza virus vaccine, live 12/25/04 Given Ambulat ory Pharmac y influenza virus vaccine, live, attenuated, for intranasal use 1 2004 [id number] 111 b-datumune, Inc. (MED) complet ed influenza virus vaccine, live, attenuate d, for intranasa l use DoD influenza virus vaccine, live 2004 [id number] 111 Medimmune Inc comple t ed influenza [...] live, attenuated, for intranasal use 0 2004 [id number] 111 Wikidot, Inc. (MED) complet ed influenza virus vaccine, live, attenuate d, for intranasa l use DoD hepatitis A-hepatitis B vaccine 2003 [id number] 104 GlaxoSmithKli ne complet ed hepatitis A-hepatit is B vaccine 12/07/03 Given Ambulat ory Pharmac y HEP A-HEP B 3 2003 104 complet ed hepatitis A and hepatitis B vaccine Lot#: [id number] [facility] hepatitis A and hepatitis B vaccine 3 2003 [id number] 104 SmithKline (SKB) complet ed hepatitis A and hepatitis B vaccine DoD hepatitis A-hepatitis B vaccine 2003 [id number] 6 104 GlaxoSmithKli ne complet ed hepatitis A-hepatit is B vaccine 07/07/03 Given Ambulat ory Pharmac y HEP A-HEP B 2 2003 104 complet ed hepatitis A and hepatitis B vaccine Lot#: [id number] [facility] hepatitis A and hepatitis B vaccine 2 2003 [id number] 104 SmithKline (SKB) complet ed hepatitis A and hepatitis B vaccine DoD hepatitis A-hepatitis B vaccine 2003 [id number] 6 104 GlaxoSmithKli ne complet ed hepatitis A-hepatit is B vaccine 06/06/03 Given Ambulat ory Pharmac y HEP A-HEP B 1 2003 104 complet ed hepatitis A and hepatitis B vaccine Lot#: [id number] [facility] measles, mumps and rubella virus vaccine 0 2003 03 () Not Given measles, mumps and rubella virus vaccine DoD varicella virus vaccine 1 2003 21 () Not Given varicella virus vaccine DoD hepatitis A and hepatitis B vaccine 1 2003 [id number] [employer] [facility] (SKB) complet ed hepatitis A and hepatitis B vaccine DoD poliovirus vaccine, inactivated 2003 [id number] 10 sanofi pasteur complet ed polioviru s vaccine, inactivat ed 06/01/03 Given Ambulat ory Pharmac y tetanus-dipht h toxoids (Td) adult/adol 2003 [id number] 09 sanofi pasteur complet ed tetanus-d iphth toxoids (Td) adult/ado l 06/01/03 Given Ambulat ory Pharmac y tuberculin purified protein derivative 2003 [id number] 96 sanofi pasteur complet ed tuberculi n purified protein derivativ e 06/01/03 Given Ambulat ory Pharmac y meningococcal polysaccharid e (MPSV4) 2003 [id number] 32 sanofi pasteur complet ed meningoco ccal polysacch aride (MPSV4) 06/01/03 Given Ambulat ory Pharmac y influenza virus vaccine, whole virus 2003 [id number] 16 Novartis Pharmaceutica complet ed influenza virus vaccine, whole virus 06/01/03 Given Ambulat ory Pharmac y MENINGOCOCCAL MPSV4 2003 32 complet ed meningoco ccal polysacch aride vaccine (MPSV4) Lot#: [id number] Mfr: SANOFI PASTEUR [facility] POLIO, UNSPECIFIED FORMULATION 2003 89 complet ed Sanofi Pasteur Lot#: [id number] [facility] TD(ADULT) UNSPECIFIED FORMULATION 2003 139 complet ed tetanus and diphtheri a toxoids, adsorbed, preservat gauri free, for adult use (2 Lf of tetanus toxoid and 2 Lf of diphtheri a toxoid) Lot#: [id number] Mfr: SANOFI PASTEUR [facility]oo[facility]U [facility] tetanus and diphtheria toxoids, adsorbed, preservative free, for adult use (2 Lf of tetanus toxoid and 2 Lf of diphtheria toxoid) 0 2003 [id number] 09 Sanofi Pasteur (PMC) complet ed tetanus and diphtheri a toxoids, adsorbed, preservat gauri free, for adult use (2 Lf of tetanus toxoid and 2 Lf of diphtheri a toxoid) [facility] poliovirus vaccine, inactivated 0 2003 [id number] 10 Sanofi Pasteur (PMC) complet ed polioviru s vaccine, inactivat ed DoD influenza virus vaccine, whole virus 0 2003 [id number] 16 PowderJect Pharmaceutica ls (PWJ) complet ed influenza virus vaccine, whole virus DoD meningococcal polysaccharid e vaccine (MPSV4) 0 2003 [id number] 32 Sanofi Pasteur (PMC) complet ed meningoco ccal polysacch aride vaccine (MPSV4) [facility] Vital Signs Combined list of inpatient and outpatient Vital Signs from Department of Defense and Veterans Affairs, ranging from 12 months to all on record, depending upon the facility. Vital Sign Value Date Comments Source SYSTOLIC BLOOD PRESSURE 144 03/02/19 25 15:33:11 [facility] [place] [facility] DIASTOLIC BLOOD PRESSURE 100 025 15:33:11 [facility] PULSE OXIMETRY 96 03/02/2024 15:33:11 [facility] WEIGHT 245 03/02/2024 15:33:11 [facility] BMI 35 kg/m2 03/02/2024 15:33:11 [facility] PAIN 0 03/02/2024 15:33:11 [facility] HEIGHT 70 03/02/2024 15:33:11 [facility] TEMPERATURE 97.6 03/02/2024 15:33:11 [facility] PULSE 85 03/02/2024 15:33:11 [facility] RESPIRATION 16 03/02/2024 15:33:11 [facility] [facility] Encounters Combined list of: 1) Encounters from Department of Veterans Affairs facilities going backup to the last 18 months, not all VA inpatient encounters are included; 2) 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 Location Location Details Encounter Type Encounter Number Reason For Visit Attending Provider ADM Date DC Date Status Disposition Source [employer]([facility] Red) TELE CONSULT [id number] chest congest ion with fever KATE, SERGIO 03/23 [employer]F [facility]ily Pract[facility]) [employer](Int Med Clinic) OUTPATIENT [id number] URI symptom s PITER MALDONADO 03/23 Released w/o Limitations [employer](I nt Med Clinic) [employer](Fli ght Medicine Clinic) OUTPATIENT [id number] [facility] part 2 YAYA SANTOS M 04/27 Released w/o Limitations [employer](F light Medicin e Clinic) [employer]([facility] Red) TELE CONSULT [id number] foot swollen and cant walk on it; pt has an appt tomorro w but ... MODESTO HANKINS 05/05 [employer](F amily Practic e Red) [facility] Practice Blue) OUTPATIENT [id number] swollen painful R foot RADDEN, JAIME D 05/05 Released w/o Limitations [employer](F amily Practic e Blue) [facility] mar[facility] Practice Red) OUTPATIENT [id number] pt injured r foot pain ful when put pressur e painful to touch KATE, SERGIO 05/06 Released w/o Limitations [employer](F amily Practic e Red) [facility](Opt ometry Clinic) OUTPATIENT [id number] possibl e foreign body LATIA CARVAJAL 05/06 Released w/o Limitations [employer](O ptometr y Clinic) [facility] mar[facility] Practice Blue) TELE CONSULT [id number] right foot pain RADDEN, JAIME D 05/08 [employer](F amily Practic e Blue) [facility] mar[facility] Practice Blue) OUTPATIENT [id number] f/u on gout RADDEN, JAIME D 05/10 Released w/o Limitations [employer](F amily Practic e Blue) [facility](Fam mara Practice Blue) OUTPATIENT [id number] gout RADDEN, JAIME D 05/13 Released w/o Limitations [facility](F amily Practic e Blue) [employer]([facility]) TELE CONSULT [id number] CONCERN S ABOUT REFERRA L DOM REDMOND 05/14 [employer]) [employer]) OUTPATIENT [id number] profile and med refill KATE, SERGIO 07/20 Released with Work/Duty Limitations [employer]) [employer]) TELE CONSULT [id number] referra l for orthope dic special ist for ankle KATE, SERGIO 08/02 [employer]([facility]) [employer]) TELE CONSULT [id number] pt was sent to orthope dic and pt was giving a out of work MODESTO Julio 09/09 [employer]) [employer]) TELE CONSULT [id number] pt needs med refill ADALET 60mg pt has 5 pills left KATE, SERGIO 09/16 [employer]([facility] Pract[facility] Red) [facility]) OUTPATIENT [id number] f/u htn (adalat increas ed last appt) KATE, SERGIO 10/13 Released w/o Limitations [employer]) [employer]) OUTPATIENT [id number] oversea s DEBBIE Boone 12/13 Released w/o Limitations [employer]([facility] Pract[facility]) [employer]) OUTPATIENT [id number] pt pcsing in april, eeds CONOR Blanchard 01/28 Released w/o Limitations [employer]([facility] Practic e Red) [facility]) OUTPATIENT [id number] medical EDIE Rinaldi 03/09 Released w/o Limitations [employer]([facility] Practic e Red) [facility]) OUTPATIENT [id number] F/U from appt Feb 22--med mary melchor EDIE IBANEZ. 03/23 Released w/o Limitations [employer]) [employer]([facility] Red) OUTPATIENT [id number] follow up on bp EDIE IBANEZ. 03/30 Released w/o Limitations [employer]([facility] Red) [employer]([facility] Red) TELE CONSULT [id number] Pt has questio ns about pha and hiv test MODESTO HANKINS 04/08 [employer]([facility] Pract[facility] Red) [employer]([facility]) OUTPATIENT [id number] pha due oversea JOIE Lizama 04/11 Released w/o Limitations [employer](P BUENO Cell) [employer]([facility]) OUTPATIENT [id number] occp pe/stru ctural MX YAYA SANTOS 04/12 Released w/o Limitations [employer](F light Medicin e Clinic) [employer]([facility]) OUTPATIENT [id number] Inproce ssing Record Review EDITH DESAI 07/21 Released w/o Limitations [employer]([facility]) [employer]([facility]) OUTPATIENT [id number] PHA JOHANNY AGUILERA 04/27 Released w/o Limitations [employer]) [employer]([facility]) TELE CONSULT [id number] f/u pha GREENLANDIC, UN DIAN 05/01 [employer]([facility]) [employer]([facility]) OUTPATIENT [id number] f/u 3day bp check GREENLANDIC, UN DIAN 05/04 Released w/o Limitations [employer]([facility]) [employer]([facility] Surgeon Office) OUTPATIENT [id number] [facility]- AUDIOGR AM,MED HY,PHY EX,WORK PLACE EXP,RES P QUEST JUANJO CLEARY 07/05 Released w/o Limitations [employer](F light Surgeon Office) [employer]([facility]) OUTPATIENT [id number] JANNA Garcia 08/03 Sick at Home/Quarter s [employer]([facility] Pract[facility] Clinic) [employer]([facility]) OUTPATIENT [id number] FT- MISSY MCKEON Tristan 11/05 Released w/o Limitations [employer]([facility] Pract[facility] Clinic) [employer]([facility]) OUTPATIENT [id number] FT-MARKO BRISA AHUJA 11/06 Sick at Home/Quarter s [employer] Pract[facility] Clinic) [employer]([facility]) OUTPATIENT [id number] ft nasal congest ion product gauri cough clear sore throat JONEL BUSBY 11/09 Sick at Home/Quarter s [employer]([facility] Pract[facility] Clinic) [employer]([facility]) DENTAL [id number] Exam JOSE RAFAEL MAGAÑA 12/21 Released w/o Limitations [employer](D ental Clinic) [employer]([facility]) DENTAL [id number] DEION Pardo 12/21 Released w/o Limitations [employer](D ental Clinic) [employer]([facility]) TELE CONSULT [id number] VASECTO MY CONSULT XIANG MATHUR R 01/28 [employer]([facility]) [employer]([facility]) OUTPATIENT [id number] Vas Consult XIANG MATHUR R 03/01 Released w/o Limitations [employer]([facility]) [employer]([facility]) OUTPATIENT [id number] F/U HBP, LABS XIANG MATHUR R 04/02 Released w/o Limitations [employer]([facility] Pract[facility] Clinic) [employer]([facility]) OUTPATIENT [id number] ANN MARIE YOST 04/18 Released w/o Limitations [employer](P BUENO Cell) [employer]([facility]) TELE CONSULT [id number] RADHA Gutierrez FOR SURGERY BRYANNA ADORNO 04/25 [facility] Practic e Clinic) [employer]([facility]) TELE CONSULT [id number] con lv or quarter s XIANG MATHUR 08/12 [facility] Practic e Clinic) [employer]([facility]) OUTPATIENT [id number] Per XIANG Fitzpatrick 08/13 Released w/o Limitations [employer]) [employer]([facility]) TELE CONSULT [id number] F/U BLOOD PRESSUR E MARK MCCLENDON 09/02 [facility] Pract[facility] Clinic) [employer]([facility]) TELE CONSULT [id number] Deploym ent ELMER Fofana 09/04 [facility](F amily Practic e Clinic) [employer]([facility]) OUTPATIENT [id number] finger pain x months/ pt request ed alterna te pcm. (pt's pcm on leave) MAYITO CHAVEZ 09/05 Released w/o Limitations [facility]) [employer]([facility]) TELE CONSULT [id number] CALL BACK FOR DEPLOYM ENT ELMER ALBERTO 09/10 [facility] Clinic) [facility] [id number] [facility] audio normal no exam needed RAMILA DAMIAN 09/12 Released w/o Limitations [employer](F light Surgeon Office) [employer] OUT[facility]IENT [id number] [facility] STERLING GEE 09/20 Released w/o Limitations [employer](F light Surgeon Office) [employer]([facility]) TELE CONSULT [id number] RETRO REFERRA L CHAPIS LEE 12/06 Referred for Appointment [facility]) [employer]([facility]) TELE CONSULT [id number] quarter s MARK MCCLENDON 12/06 [employer]([facility] Practic [facility] Clinic) [employer]([facility]) TELE CONSULT [id number] RETRO REFERMISSY FERRELL 12/12 Referred for Appointment [employer]([facility] Pract[facility] Clinic) [employer]([facility]) TELE CONSULT [id number] NAUSEA/ BUENO X TODAY CHAPIS FULTON 12/24 Referred for Appointment [employer]([facility] Pract[facility] Clinic) [employer]([facility]) TELE CONSULT [id number] work excuse/ quarter s CAMDENCANDY MICHEL Tristan 12/24 [employer]([facility] Practic e Clinic) [employer]([facility]) TELE CONSULT [id number] Quarter s [employer] CANDY TOPETE Tristan 01/03 [employer]([facility] Pract[facility] Clinic) [employer]([facility]) OUTPATIENT [id number] NVD, BUENO, chills -FT- JUANJO FULTON 01/24 Sick at Home/Quarter s [employer]([facility] Practic e Clinic) [employer]([facility]) OUTPATIENT [id number] ON GOING RASH X 1 MTH //POSSI BLE DERMATO LOGY REFERBRYANNA CHAVEZ 02/05 Released w/o Limitations [employer]([facility] Pract[facility] Clinic) [employer]([facility]) TELE CONSULT [id number] Referra demar gutierrez n for CHAPIS Gardiner 02/18 Referred for Appointment [employer]([facility] Pract[facility] Clinic) [employer]([facility]) OUTPATIENT [id number] SORE THROAT, HEADACH E, FEVER, CHILLS TANNER VILLASEÑOR 02/28 Released w/o Limitations [employer](F [facility] Practic e Clinic) [employer]([facility]) TELE CONSULT [id number] KEENAN SHERIFF 03/11 Referred for Appointment [employer]([facility] Practic [facility] Clinic) [employer]([facility]) TELE CONSULT [id number] NURSE CONSULT /REACTI ON TO MEDS KEENAN SHERIFF 03/20 [employer]([facility] Practic e Clinic) [employer]([facility]) OUTPATIENT [id number] sore throat/ med side effects CANDY TOPETE 03/24 Released w/o Limitations [employer]([facility] Practic [facility] Clinic) [employer]([facility]) OUTPATIENT [id number] MARK Benedict 04/21 Sick at Home/Quarter s [employer]([facility] Practic e Clinic) [employer]([facility]) OUTPATIENT [id number] PHA/EMS CHRISTIVICKIE RINCON Lis 05/29 Released w/o Limitations [employer](P BUENO Cell) [employer](Fam Med Cl Tm B Non-Ad) TELE CONSULT [id number] ACTIVE DUTY/ RIGHT CALF PAIN KEENAN SHERIFF 08/19 [employer](F am Med Cl Tm B Non-Ad) [employer]([facility]) OUTPATIENT [id number] right calf pain since last Thursda y CANDY TOPETE 08/20 Released w/o Limitations [employer](F [facility] Practic e Clinic) [employer](Fam Med Cl Tm B Non-Ad) TELE CONSULT [id number] LIAN HOLT PROFILE /WAS SEEN YESTERD KEENAN HOWE 08/21 [facility] Group(F am Med Cl Tm B Non-Ad) [employer](Fam Med Cl Tm B Non-Ad) TELE CONSULT [id number] profile extensi on request KISHORE MARROQUIN 09/05 [employer](F am Med Cl Tm B Non-Ad) [employer](Fam Med Cl Tm B Non-Ad) TELE CONSULT [id number] PROFILE EXTENSI ON KISHORE MARROQUIN O 09/08 [employer](F am Med Cl Tm B Non-Ad) [employer](Fam Med Cl Tm B Non-Ad) OUTPATIENT [id number] fu right leg / profile CANDY TOPETE 09/17 Released w/o Limitations [employer](F am Med Cl Tm B Non-Ad) [employer]([facility] Affiliate s) OUTPATIENT [id number] F/U PROFILE ANGEL FULTONOlga Benz 10/03 Released w/o Limitations [employer](F [place] Affilia nikolay) [employer]([facility]) OUTPATIENT [id number] SUMIT ROSEN 10/03 Released with Work/Duty Limitations [employer](P hysical Therapy Clinic) [employer]([facility]) OUTPATIENT [id number] Rt lower leg pain MARCIAL, LUIS 10/09 Released with Work/Duty Limitations [employer](P [facility]ys[facility] Therapy Clinic) [employer]) OUTPATIENT [id number] NATALIIA GUERIN 10/14 Released with Work/Duty Limitations [employer](P hysical Therapy Clinic) [employer]([facility]) OUTPATIENT [id number] MARCIAL, LUIS 10/16 Released with Work/Duty Limitations [employer](P [facility] Therapy Clinic) [employer]) OUTPATIENT [id number] BRISA GONZALEZ 10/28 Released with Work/Duty Limitations [employer](P [facility]ysical Therapy Clinic) [employer]([facility]) OUTPATIENT [id number] SUMIT ROSEN 10/29 Released with Work/Duty Limitations [employer](P hysical Therapy Clinic) [employer](Fli ght Surgeon Office) OUTPATIENT [id number] [facility] LEIGH TAYLOR 11/21 Released w/o Limitations [employer](F light Surgeon Office) [employer]([facility]) OUTPATIENT [id number] BRISA GNOZALEZ 12/19 Released w/o Limitations [employer](P hysical Therapy Clinic) [employer]([facility]) OUTPATIENT [id number] MARCIAL, LUIS 12/29 Released w/o Limitations [employer](P hysical Therapy Clinic) [employer]([facility]) OUTPATIENT [id number] MARCIAL, LUIS 01/02 Released w/o Limitations [employer](P hysical Therapy Clinic) [employer]([facility]) OUTPATIENT [id number] MARCIALBALDO MARCUSRO 01/05 Released w/o Limitations [employer](P hysical Therapy Clinic) [employer]([facility]) OUTPATIENT [id number] SUMIT ROSEN E 01/26 Released with Work/Duty Limitations [employer](P [facility]ysical Therapy Clinic) [employer]([facility]) OUTPATIENT [id number] MARCIAL, LUIS 02/13 Released with Work/Duty Limitations [employer](P hysical Therapy Clinic) [employer]([facility]) OUTPATIENT [id number] MARCIAL, LUIS 02/20 Released with Work/Duty Limitations [employer](P hysical Therapy Clinic) [employer]([facility]) OUTPATIENT [id number] NATALIIA GUERIN 03/10 Released with Work/Duty Limitations [employer](P hysical Therapy Clinic) [employer]([facility] Affiliate s) TELE CONSULT [id number] PRE DEPLOYM ENT CLEARAN CE APR 14 2011 DAYTON LORA 03/13 [employer](F [place] Affilia nikolay) [employer]([facility]) OUTPATIENT [id number] BRISA GONZALEZ 03/13 Released with Work/Duty Limitations [employer](P hysical Therapy Clinic) [employer]([facility]) OUTPATIENT [id number] MARCIAL, LUIS 03/16 Released with Work/Duty Limitations [employer](P hysical Therapy Clinic) [employer]([facility]) OUTPATIENT [id number] SUMIT ROSEN E 04/10 Released with Work/Duty Limitations [employer](P hysical Therapy Clinic) [employer](Fam Med Cl Tm B Non-Ad) OUTPATIENT [id number] F/U PROFILE / MED REFILL ROHIT CLARK 05/24 Released w/o Limitations [employer](F am Med Cl Tm B Non-Ad) [employer]([facility]rez n [facility] Team D) OUTPATIENT [id number] chest cold, hurt finger SKYLAR ARIAS 07/22 Released w/o Limitations [employer](O del cid [facility] Team D) [facility](Fam Med Cl Tm B Non-Ad) TELE CONSULT [id number] Notes Entered by: RICHARD CRYSTAL 03 Aug 2011 0810 ------- ------- ------- ------- -- Physica l Therapy ROHIT Stewart 08/02 [employer](F am Med Cl Tm B Non-Ad) [facility] s) TELE CONSULT [id number] Notes Entered by: Da WORKMAN 01 Dec 2011 1158 ------- ------- ------- ------- -- ER VISIT F/U MISSY CORTEZ 11/30 [facility]) [facility] Med Cl Tm B Non-Ad) TELE CONSULT [id number] Notes Entered by: Da WORKMAN 01 Dec 2011 1204 ------- ------- ------- ------- -- L. FOOT PAIN REYNA MOREL 11/30 [facility](F am Med Cl Tm B Non-Ad) [facility] s) OUTPATIENT [id number] left foot pain//c VENITA Kumar 12/02 Released w/o Limitations [employer]([facility]) [facility] Med Cl Tm B Non-Ad) TELE CONSULT [id number] Notes Entered by: REYNA MOREL 24 Dec 2011 1339 ------- ------- ------- ------- -- Con leave request REYNA MOREL 12/23 [employer](F am Med Cl Tm B Non-Ad) [facility] s) TELE CONSULT [id number] Notes Entered by: STACY LIN 29 Dec 2011 0941 ------- ------- ------- ------- -- CON LEAVE EXT MARIA TERESASHINECHAPITO Espinoza 12/28 [employer] [employer](Fam Med Cl Tm B Non-Ad) TELE CONSULT [id number] Notes Entered by: ROHIT CLARK 11 Jan 2012 1712 ------- ------- ------- ------- -- ROHIT Tan 01/10 [employer](F am Med Cl Tm B Non-Ad) [facility](Fam Med Cl Tm B Non-Ad) OUTPATIENT [id number] nausea diarrhe a some lighthe adednes s x 3 days// DEJA LEOS 04/29 Sick at Home/Quarter s [facility](F am Med Cl Tm B Non-Ad) [facility] Surgeon Office) OUTPATIENT [id number] Notes Entered by: Da WORKMAN 02 May 2012 0935 ------- ------- ------- ------- -- f/u n/DELGADO Glover 05/02 Sick at Home/Quarter s [employer]([facility] Surgeon Office) [facility](Fam Med Cl Tm B Non-Ad) TELE CONSULT [id number] Notes Entered by: KAMERON GE 30 May 2012 1304 ------- ------- ------- ------- -- ACTIVE DUTY PT WITH RASH/ RIGHT ARM MISSY CORTEZ 05/30 [employer](F am Med Cl Tm B Non-Ad) [facility](Fam Med Cl Tm B Non-Ad) OUTPATIENT [id number] nurse clinic - rash// MISSY CORTEZ 05/30 Released w/o Limitations [employer](F am Med Cl Tm B Non-Ad) [facility] Surgeon Office) OUTPATIENT [id number] [facility] BEVERLY BATES 06/06 Released w/o Limitations [employer](F light Surgeon Office) [employer](Fam Med Cl Tm B Non-Ad) TELE CONSULT [id number] Notes Entered by: ALIYA MCKEON 04 Jul 2012 1012 ------- ------- ------- ------- -- Network Results -RHEUMA TOLOGY 05/28 MISSY CORTEZ 07/04 [employer](F am Med Cl Tm B Non-Ad) [employer]([facility]) OUTPATIENT [id number] PHA ZACHARY MCGEE 07/12 Released w/o Limitations [facility](P BUENO Cell) [employer](Fam Med Cl Tm B Non-Ad) OUTPATIENT [id number] MED CK, BP CK ROHIT CLARK 08/03 Released w/o Limitations [facility](F am Med Cl Tm B Non-Ad) [employer] OUTPATIENT [id number] Pre BREE VILLALOBOS 08/16 Released w/o Limitations [employer](D eployme Health Assess ents) [employer]([facility]) OUTPATIENT [id number] Notes Entered by: William ROSE 06 Sep 2012 1231 ------- ------- ------- ------- -- VAIBHAV STOKES 09/06 Released w/o Limitations [facility]) [employer](Fam Med Cl Tm B Non-Ad) TELE CONSULT [id number] Notes Entered by: NEELAM CONROY 14 Sep 2012 1318 ------- ------- ------- ------- -- PRE DEPLOY ENT ROHIT MARTINES 09/14 [employer](F am Med Cl Tm B Non-Ad) [facility] OUTPATIENT [id number] Theater Provider 04/27 Released w/o Limitations [facility] [employer](Fam Med Cl Tm B Non-Ad) TELE CONSULT [id number] Notes Entered by: KAMERON GE 04 Sep 2013 0837 ------- ------- ------- ------- -- ACTIVE DUTY/ VOMITIN G/ NAUSEA KEENAN SHERIFF 09/04 Referred for Appointment [facility](F am Med Cl Tm B Non-Ad) [facility](Fli ght Surgeon Office) OUTPATIENT [id number] [facility] 09/04 Released w/o Limitations [facility](F light Surgeon Office) [facility](Fam Med Cl Tm B Non-Ad) OUTPATIENT [id number] BP med refROHIT Bowers 09/06 Released w/o Limitations [facility](F am Med Cl Tm B Non-Ad) [facility] OUTPATIENT [id number] sleep LONG, DELVIDA L 09/06 Released w/o Limitations [employer] [facility](I ntegrat ed Behavio ral Hlth Cln) [facility](Dep [facility] Assessmen ts) OUTPATIENT [id number] DHA3, 40 min BREE HOLT 09/14 Released w/o Limitations [employer](D eployme nt Health Assessm ents) [facility]) OUTPATIENT [id number] PHA-Tristan TO BE COMPLET DIANA CALDWELL 09/14 Released w/o Limitations [employer](P BUENO Cell) [facility]) OUTPATIENT [id number] F/U sleep LONG, DELVIDA L 09/22 Released w/o Limitations [employer] [facility](I ntegrat ed Behavio ral Hlth Cln) [facility](Fam Med Cl Tm B Non-Ad) TELE CONSULT [id number] Notes Entered by: KAMERON GE 22 Sep 2013 1527 ------- ------- ------- ------- -- ACTIVE DUTY/ PULLED GROIN WHILE RUNNING KEENAN SHERIFF 09/22 Referred for Appointment [employer](F am Med Cl Tm B Non-Ad) [employer](Fam Med Cl Tm B Non-Ad) OUTPATIENT [id number] left groin pain ROHIT CLARK 09/25 Released with Work/Duty Limitations [employer](F am Med Cl Tm B Non-Ad) [employer]([facility]) OUTPATIENT [id number] F/U sleep TITO FORBES 09/28 Released w/o Limitations [employer](I ntegrat ed Behavio ral Hlth Cln) [employer](Fam Med Cl Tm B Non-Ad) TELE CONSULT [id number] Notes Entered by: KAMERON GE 20 Oct 2013 0946 ------- ------- ------- ------- -- ACTIVE DUTY/ POSSIBL E STREP THROAT KEENAN SHERIFF 10/20 Referred for Appointment [employer](F am Med Cl Tm B Non-Ad) [employer](Fam Med Cl Tm B Non-Ad) TELE CONSULT [id number] Notes Entered by: KEENAN SHERIFF 24 Oct 2013 1321 ------- ------- ------- ------- -- Lab results KEENAN SHERIFF 10/24 Referred for Appointment [employer](F am Med Cl Tm B Non-Ad) [employer](Fam Med Cl Tm B Non-Ad) TELE CONSULT [id number] Notes Entered by: Edgar PENA 01 Dec 2013 0743 ------- ------- ------- ------- -- ER Farhan/KEENAN GALLAGHER 12/01 Immediate Referral [employer](F am Med Cl Tm B Non-Ad) [employer](Fam Med Cl Tm B Non-Ad) OUTPATIENT [id number] f/u - left shoulde r ROHIT Talley 12/04 Sick at Home/Quarter s [employer](F am Med Cl Tm B Non-Ad) [employer](Fam Med Cl Tm B Non-Ad) OUTPATIENT [id number] F/U ROHIT Vidal 12/08 Released w/o Limitations [employer](F am Med Cl Tm B Non-Ad) [employer](Fam Med Cl Tm B Non-Ad) TELE CONSULT [id number] Notes Entered by: KAMERON GE 18 Jan 2014 1033 ------- ------- ------- ------- -- ACTIVE DUTY/ PROFILE ISSUE CHASCONCEPCION PITTMANEvangelina Mirza 01/18 Referred for Appointment [employer](F am Med Cl Tm B Non-Ad) [employer](Fam Med Cl Tm B Non-Ad) TELE CONSULT [id number] Notes Entered by: BROOKE HERNADEZ 09 Mar 2014 1523 ------- ------- ------- ------- -- Out Process bertram KWAN FLOR N 03/09 Released to [employer] [facility](F am Med Cl Tm B Non-Ad) [place] [address](AFN G 104 Med Sq-FM) OUTPATIENT [id number] Notes Entered by: Antoinette GUILLNE II 16 Jul 2016 0730 ------- ------- ------- ------- -- Short Non-Fly / Occupat [facility] MARTHA MONTERO 07/16 Released w/o Limitations [facility] [place] [address](A FNG 104 Med Sq-FM) [place] [address](AFN G 104 Med Sq-FM) OUTPATIENT [id number] Notes Entered by: MARCIA MEDEL 28 Nov 2016 0941 ------- ------- ------- ------- -- Med f/u 469 MARCIA MEDEL 11/28 Released with Work/Duty Limitations [facility] [place] [address](A FNG 104 Med Sq-FM) [facility] Treatment [facility] [place] [address](AFN G 104 Med Sq-FM) OUTPATIENT [id number] Notes Entered by: LY JACKSON 15 Jan 2017 1329 ------- ------- ------- ------- -- Provide r f/u JOHANNY BRADEN 01/15 [facility]ased w/o Limitations [facility] [place] [address](A FNG 104 Med Sq-FM) [place] [address](AFN G 104 Med Sq-FM) OUTPATIENT [id number] Notes Entered by: TREY BULLOCK 18 Mar 2017 1320 ------- ------- ------- ------- -- JOSE RAFAEL SHORE 03/18 Released with Work/Duty Limitations [facility] [place] [address](A FNG 104 Med Sq-FM) [place] [address](AFN G 104 Med Sq-FM) OUTPATIENT [id number] Notes Entered by: HOLLIE ALTMAN 09 Apr 2017 1726 ------- ------- ------- ------- -- MARTHA Esparza 04/09 Released w/o Limitations [facility] [place] [address](A FNG 104 Med Sq-FM) [place] [address](AFN G 104 Med Sq-FM) OUTPATIENT [id number] Notes Entered by: TREY BULLOCK 16 Apr 2017 1511 ------- ------- ------- ------- -- Luis Enrique mirza MD note review JOSE RAFAEL BULLOCK 04/16 Released with Work/Duty Limitations [facility] [place] [address](A FNG 104 Med Sq-FM) [place] [address](AFN G 104 Med Sq-FM) OUTPATIENT [id number] Notes Entered by: JOHANNY BRADEN 25 Feb 2018 1317 ------- ------- ------- ------- -- right Juan M s tendoni tis, RTD JOHANNY BRADEN 02/25 Released w/o Limitations [facility] [place] [address](A FNG 104 Med Sq-FM) [place] [address](AFN G 104 Med Sq-FM) OUTPATIENT [id number] Notes Entered by: JOHANNY BRADEN 15 Apr 2018 1026 ------- ------- ------- ------- -- Occ/Ski n exam and PHAQ JOHANNY BRADEN 04/15 Released w/o Limitations [facility] [place] [address](A FNG 104 Med Sq-FM) [place] [address](AFN G 104 Med Sq-FM) OUTPATIENT [id number] 7 Notes Entered by: MARICRUZ MONTERO 21 May 2018 1040 ------- ------- ------- ------- -- 469 f/u MARTHA MONTERO 05/21 Released w/o Limitations [facility] [place] [address](A FNG 104 Med Sq-FM) [place] [address](AFN G 104 Med Sq-FM) OUTPATIENT [id number] Notes Entered by: MARCIA MEDEL 17 Jun 2018 1443 ------- ------- ------- ------- -- right foot MARCIA MEDEL 06/17 Released with Work/Duty Limitations [facility] [place] [address](A FNG 104 Med Sq-FM) [place] [address](AFN G 104 Med Sq-FM) OUTPATIENT [id number] 5 Notes Entered by: MARCIA MEDEL 01 Oct 2018 0949 ------- ------- ------- ------- -- follow up MARCIA Ordaz 10/01 Released with Work/Duty Limitations [facility] [place] [address](A FNG 104 Med Sq-FM) [facility], [place] [address](AFN G 104 Med Sq-FM) OUTPATIENT [id number] Notes Entered by: MARCIA MEDEL 08 Mar 2019 1449 ------- ------- ------- ------- -- R foot pain MARCIA MEDEL 03/08 Released with Work/Duty Limitations [facility] [place] [address](A FNG 104 Med Sq-FM) [facility], [place] [address](AFN G 104 Med Sq-FM) TELE CONSULT [id number] Notes Entered by: MARCIA MEDEL 09 Mar 2019 1020 ------- ------- ------- ------- -- foot pain MARCIA MEDEL 03/09 [facility] [place] [address](A FNG 104 Med Sq-FM) [facility], [place] [address](AFN G 104 Med Sq-FM) OUTPATIENT [id number] 7 Notes Entered by: SCOTT HINDS 09 Mar 2019 1439 ------- ------- ------- ------- -- Annual MSE / OH exams MARCIA MEDEL 03/09 Released with Work/Duty Limitations [facility] [place] [address](A FNG 104 Med Sq-FM) [place] [address](AFN G 104 Med Sq-FM) OUTPATIENT [id number] Notes Entered by: MARICA MEDEL 21 Mar 2019 1022 ------- ------- ------- ------- -- PHAQ MARCIA MEDEL 03/21 Released with Work/Duty Limitations [facility] [place] [address](A FNG 104 Med Sq-FM) [facility], [place] [address](AFN G 104 Med Sq-FM) TELE CONSULT [id number] Notes Entered by: MARCIA MEDEL 14 Apr 2019 1039 ------- ------- ------- ------- -- Op note MARCIA MEDEL 04/14 [facility] [place] [address](A FNG 104 Med Sq-FM) [facility], [place] [address](AFN G 104 Med Sq-FM) TELE CONSULT [id number] Notes Entered by: MARCIA MEDEL 21 Apr 2019 1409 ------- ------- ------- ------- -- foot pain MARCIA MEDEL 04/20 [facility] [place] [address](A FNG 104 Med Sq-FM) [facility], [place] [address](AFN G 104 Med Sq-FM) TELE CONSULT [id number] Notes Entered by: MARCIA MEDEL 26 Apr 2019 1249 ------- ------- ------- ------- -- R foot pain MARCIA MEDEL 04/25 [facility] [place] [address](A FNG 104 Med Sq-FM) [facility], [facility](AFN G 104 Med Sq-FM) TELE CONSULT [id number] Notes Entered by: MARCIA MEDEL 17 May 2019 1151 ------- ------- ------- ------- -- foot pain ANOTINE MEDELTIA DUMONT 05/16 [facility] [place] [address](A FNG 104 Med Sq-FM) [place] [address](AFN G 104 Med Sq-FM) TELE CONSULT [id number] Notes Entered by: TREY BULLOCK 08 Jun 2019 0912 ------- ------- ------- ------- -- note review JOSE RAFAEL BULLOCK 06/07 [facility] [place] [address](A FNG 104 Med Sq-FM) [place] [address](AFN G 104 Med Sq-FM) TELE CONSULT [id number] ANTOINE MEDELTIA DUMONT 08/14 [facility] [place] [address](A FNG 104 Med Sq-FM) [place] [address](AFN G 104 Med Sq-FM) TELE CONSULT [id number] Notes Entered by: MARCIA MEDEL 12 Oct 2019 1405 ------- ------- ------- ------- -- follow up GIANFRANCO MARCIA DUMONT 10/11 [facility] [place] [address](A FNG 104 Med Sq-FM) [place] [address](AFN G 104 Med Sq-FM) OUTPATIENT [id number] Notes Entered by: MARCIA MEDEL 24 Oct 2019 0916 ------- ------- ------- ------- -- Right foot pain MARCIA MEDEL 10/23 Released with Work/Duty Limitations [facility] [place] [address](A FNG 104 Med Sq-FM) [place] [address](AFN G 104 Med Sq-FM) TELE CONSULT [id number] Notes Entered by: MARCIA MEDEL 09 Jan 2020 1459 ------- ------- ------- ------- -- R foot pain MARCIA MEDEL 01/08 [facility] [place] [address](A FNG 104 Med Sq-FM) [facility], [place] [address](AFN G 104 Med Sq-FM) TELE CONSULT [id number] Notes Entered by: MARCIA MEDEL 05 Mar 2020 0904 ------- ------- ------- ------- -- R foot pain MARCIA MEDEL 03/05 [facility] [place] [address](A FNG 104 Med Sq-FM) [facility], [place] [address](AFN G 104 Med Sq-FM) OUTPATIENT [id number] MARCIA MEDEL 03/14 Released w/o Limitations [facility] [place] [address](A FNG 104 Med Sq-FM) [facility], [place] [address](AFN G 104 Med Sq-FM) OUTPATIENT [id number] Notes Entered by: MARCIA MEDEL 14 Mar 2020 1055 ------- ------- ------- ------- -- PHAQ MARCIA MEDEL 03/14 Released with Work/Duty Limitations [facility] [place] [address](A FNG 104 Med Sq-FM) [facility], [place] [address](AFN G 104 Med Sq-FM) TELE CONSULT [id number] Notes Entered by: MARCIA MEDEL 03 Apr 2020 1443 ------- ------- ------- ------- -- R foot pain MARCIA MEDEL 04/03 [facility] [place] [address](A FNG 104 Med Sq-FM) [facility], [place] [address](AFN G 104 Med Sq-FM) TELE CONSULT [id number] Notes Entered by: MARCIA MEDEL 09 Apr 2020 1056 ------- ------- ------- ------- -- return MARCIA MEDEL 04/09 [facility] [place] [address](A FNG 104 Med Sq-FM) [facility], [place] [address](AFN G 104 Med Sq-FM) OUTPATIENT [id number] Notes Entered by: RUTH SHIRLEY 24 Apr 2020 1247 ------- ------- ------- ------- -- Audiogr am /Respir ator Fit Test /[place] Questio nnaire/ HIV/Vit als/ Provide r([place]-Ph ysica MARCIA MEDEL 04/24 Released w/o Limitations [facility], [place] [address](A FNG 104 Med Sq-FM) [facility], [place] [address](AFN G 104 Med Sq-FM) TELE CONSULT [id number] 4 Notes Entered by: MARCIA MEDEL 11 Jul 2020 1554 ------- ------- ------- ------- -- R foot pain MARCIA MEDEL 07/11 [facility], [facility](A FNG 104 Med Sq-FM) [facility], [place] [address](AFN G 104 Med Sq-FM) OUTPATIENT [id number] 9 Notes Entered by: MARCIA MEDEL 10 Sep 2020 0936 ------- ------- ------- ------- -- LUISITO MARCIA MEDEL 09/10 Sick at Home/Quarter s [facility] [place] [address](A FNG 104 Med Sq-FM) [place] [address](AFN G 104 Med Sq-FM) TELE CONSULT [id number] 3 MARCIA MEDELONE 12/10 [facility] [place] [address](A FNG 104 Med Sq-FM) [place] [address](AFN G 104 Med Sq-FM) TELE CONSULT [id number] MARCIA MEDEL 01/01 [facility] [place] [address](A FNG 104 Med Sq-FM) [place] [address](AFN G 104 Med Sq-FM) TELE CONSULT [id number] MARCIA MEDEL 01/07 [facility] [place] [address](A FNG 104 Med Sq-FM) [place] [address](AFN G 104 Med Sq-FM) TELE CONSULT [id number] MARCIA MEDEL 02/05 [facility] [place] [address](A FNG 104 Med Sq-FM) [place] [address](AFN G 104 Med Sq-FM) OUTPATIENT [id number] Notes Entered by: MARCIA MEDEL JULIA 25 Feb 2021 1434 ------- ------- ------- ------- -- JORGE LUIS MARCIA MEDEL JULIA 02/25 Released with Work/Duty Limitations [facility] [place] [address](A FNG 104 Med Sq-FM) [place] [address](AFN G 104 Med Sq-FM) OUTPATIENT [id number] Notes Entered by: SARAH MCPHERSON 24 Apr 2021 1402 ------- ------- ------- ------- -- [facility] 04/24 [facility] [place] [address](A FNG 104 Med Sq-FM) [place] [address](AFN G 104 Med Sq-FM) TELE CONSULT [id number] MARCIA MEDEL JULIA 09/24 [facility] [place] [address](A FNG 104 Med Sq-FM) [place] [address](AFN G 104 Med Sq-FM) TELE CONSULT [id number] MARCIA MEDEL JULIA 10/22 [facility] [place] [address](A FNG 104 Med Sq-FM) [place] [address](AFN G 104 Med Sq-FM) TELE CONSULT [id number] 3 MARCIA MEDEL JULIA 01/15 [place] [address](A FNG 104 Med Sq-FM) [place] [address](AFN G 104 Med Sq-FM) TELE CONSULT [id number] 5 MARCIA MEDEL JULIA 03/13 [facility] [place] [address](A FNG 104 Med Sq-FM) [place] [address](AFN G 104 Med Sq-FM) OUTPATIENT [id number] 5 Notes Entered by: MARCIA MEDEL 17 Mar 2022 1610 ------- ------- ------- ------- -- JORGE LUIS MEDEL MARCIA DUMONT 03/17 Released with Work/Duty Limitations [facility] [place] [address](A FNG 104 Med Sq-FM) [place] [address](AFN G 104 Med Sq-FM) OUTPATIENT [id number] Notes Entered by: MALVIN HARTLEY 16 Apr 2022 1641 ------- ------- ------- ------- -- JORGE LUIS benz KEKE SNYDER 04/16 Released w/o Limitations [facility] [place] [address](A FNG 104 Med -) [facility] Outpatient Encounter [id number] 04/08 [facility] [id number] MDG Between Visit [id number] 04/20 Discharge Disposition: Home or Self Care [id number] MDG [facility] Outpatient Encounter [id number] 09/04 [facility] Out[facility] Encounter [id number] 03/02 [facility] OFFICE O/P NEW MOD 45 MIN [id number] Diagnos is: ICD-10- CM I10 Essenti al (primar y) hyperte GERARD Fortune 03/02 [facility] Outpatient Encounter [id number] 03/02 [facility] CASE MANAGEMENT [id number] Diagnos is: ICD-10- CM Z71.89 Other specifi ed funeral counselor JOY Contreras 03/03 [facility] Outpatient Encounter [id number] 03/07 [facility] Out[facility] Encounter [id number] 03/10 [facility] Out[facility] Encounter [id number] 03/10 [facility] Out[facility] Encounter [id number] 03/13 [facility] CASE MANAGEMENT [id number] Diagnos is: ICD-10- CM Z71.89 Other specifi ed funeral counselor JOY Contreras 03/20 [facility] Procedures Combined list of: 1) Procedures from Department of Veterans Affairs facilities going back up to thelast 18 months, not all [place] non-surgical procedures are included; 2) All procedures from the Department of Defense facilities. Procedure Procedure Type Code Date Perfomer Comments Sourc e SPECIAL REPORTS SUCH INSURANCE FORMS, MORE THAN THE INFORMATION CONVEYED IN THE USUAL MEDICAL COMMUNICATIONS OR STANDARD REPORTING FORM 2003 DoD PURE TONE AUDIOMETRY (THRESHOLD); AIR ONLY 2022 DoD EDUCATIONAL SUPPLIES, SUCH BOOKS, TAPES, AND PAMPHLETS, FOR THE PATIENT'S EDUCATION AT COST TO PHYSICIAN OR OTHER QUALIFIED HEALTH REMOTE ENCODING OPERATIONS SUPERVISOR 2003 DoD SCREENING TEST, PURE TONE, AIR ONLY 2013 DoD NEUROPSYCHOLOGICAL TESTING (EG, [place] CARD SORTING TEST), ADMINISTERED BY A COMPUTER, WITH QUALIFIED HEALTH REMOTE ENCODING OPERATIONS SUPERVISOR INTERPRETATION AND REPORT 2012 DoD PURE TONE AUDIOMETRY (THRESHOLD); AIR ONLY 2012 DoD INTRAVENOUS INFUSION, HYDRATION; EACH ADDITIONAL HOUR (LIST SEPARATELY IN ADDITION TO CODE FOR PRIMARY PROCEDURE) 2012 DoD PHYSICAL THERAPY RE-EVALUATION 2011 DoD APPLICATION OF [...] DoD UNLISTED PULMONARY SERVICE OR PROCEDURE 2009 DoD SCREENING TEST, PURE TONE, AIR ONLY 2009 DoD TELE ASSESS & MGT SRV PROV QUAL NONPHYS HLTH CARE PRO TO EST PAT,PARENT,GUARD NOT ORIG REL ASSESS & MGT SRV PROV W/IN PREV 7 DAYS NOR LEAD ASSESS & MGT SRV/PX W/IN NXT 24 HR/SOON APT;5-10 MIN MED DIS 2009 DoD CULTURE, BACTERIAL, URINE; QUANTITATIVE, SENSITIVITY STUDY 2008 DoD INJECTION, DIPHENHYDRAMINE HCL, UP TO 50 MG [...] PURE TONE AUDIOMETRY (THRESHOLD); AIR ONLY 2006 [facility] THERAPEUTIC PROCEDURE, 1 OR MORE AREAS, EACH 15 MINUTES; THERAPEUTIC EXERCISES TO DEVELOP STRENGTH AND ENDURANCE, RANGE OF MOTION AND FLEXIBILITY 2005 [facility] THERAPEUTIC PROCEDURE, 1 OR MORE AREAS, EACH 15 MINUTES; THERAPEUTIC EXERCISES TO DEVELOP STRENGTH AND ENDURANCE, RANGE OF MOTION AND FLEXIBILITY 2005 [facility] VIS FUNCT SCREEN,AUTOMAT/SEMI- AUTOMAT BILAT QUANT DETERM VISUAL ACUITY,OCULAR ALIGN,COLOR VISION,PSEUDOISOCHRO MAT PLATES,& FIELD VIS (MAY INC ALL/SOME SCRN DETERM FOR CONTRAST SENSITIV,VIS UND GLARE) 2005 [facility] SCREENING TEST OF VISUAL ACUITY, QUANTITATIVE, BILATERAL 2005 [facility] INFLUENZA VIRUS VACCINE, TRIVALENT, LIVE (LAIV3), FOR INTRANASAL USE 2004 [facility] SCREENING TEST OF VISUAL ACUITY, QUANTITATIVE, BILATERAL 2003 [facility] Spirometry Spirometry 78730 2013 SARAH JONES [facility] Audiogram (Screening) Audiogram (Screening) 69384 2013 SARAH JONES [facility] Psychometric Neuropsych Testing Battery Admin By Computer Psychometric Neuropsych Testing Battery Admin By Computer 45305 2012 ABHISHEK MAS [facility] Threshold Audiogram (Pure Tone) Threshold Audiogram (Pure Tone) 08612 2012 BEVERLY BATES [facility] Pulmonary Function Tests Pulmonary Function Tests 51106 2012 BEVERLY BATES IV Infusion For Hydration Each Additional Hour IV Infusion For Hydration Each Additional Hour 23437 2012 DEJA LEOS IV Infusion For Hydration 31 Minutes To 1 Hour IV Infusion For Hydration 31 Minutes To 1 Hour 22142 2012 DEJA LEOS Intravenous Catheter Placement Intravenous Catheter Placement 85901 2012 DEJA LEOS [facility] Physical Therapy Service Re-Evaluation Physical Therapy Service Re-Evaluation 59804 2011 SUMIT ROSEN [facility] Modalities Heat Hot Packs Modalities Heat Hot Packs 36973 2011 MARCIALLUIS MARCUS [facility] Physical Therapy Neuromuscular Re-education Physical Therapy Neuromuscular Re-education 41105 2011 MARCIALLUIS MARCUS Physical Therapy: ___ Se ion Segments, 15 Minutes Each Physical Therapy: ___ Session Segments, 15 Minutes Each 20700 2011 MARCIAL, LUIS DoD Modalities Heat Hot Packs Modalities Heat Hot Packs 91947 2011 BRISA GONZALEZ [facility] Physical Therapy Neuromuscular Re-education Physical Therapy Neuromuscular Re-education 44029 2011 BRISA GONZALEZ [facility] Physical Therapy: ___ Se ion Segments, 15 Minutes Each Physical Therapy: ___ Session Segments, 15 Minutes Each 26386 2011 BRISA GONZALEZ DoD Modalities Heat Hot Packs Modalities Heat Hot Packs 19296 2011 NATALIIA GUERIN Physical Therapy Neuromuscular Re-education Physical Therapy Neuromuscular Re-education 19628 2011 NATALIIA GUERIN Physical Therapy: ___ Se ion Segments, 15 Minutes Each Physical Therapy: ___ Session Segments, 15 Minutes Each 66158 2011 NATALIIA GUERIN Modalities Heat Hot Packs Modalities Heat Hot Packs 18317 2011 MARCIAL, LUIS DoD Physical Therapy: ___ Se ion Segments, 15 Minutes Each Physical Therapy: ___ Session Segments, 15 Minutes Each 68307 2011 MARCIAL, LUIS DoD Physical Therapy Neuromuscular Re-education Physical Therapy Neuromuscular Re-education 75303 2011 MARCIAL, LUIS DoD Modalities Heat Hot Packs Modalities Heat Hot Packs 38815 2010 MARCIAL, LUIS DoD Physical Therapy Neuromuscular Re-education Physical Therapy Neuromuscular Re-education 59316 2010 MARCIAL, LUIS DoD Physical Therapy: ___ Se ion Segments, 15 Minutes Each Physical Therapy: ___ Session Segments, 15 Minutes Each 72653 2010 MARCIAL, LUIS DoD Physical Therapy Service Re-Evaluation Physical Therapy Service Re-Evaluation 01173 2010 SUMIT ROSEN E DoD Physical Therapy Neuromuscular Re-education Physical Therapy Neuromuscular Re-education 08490 2010 MARCIAL, LUIS DoD Modalities Heat Hot Packs Modalities Heat Hot Packs 71338 2010 MARCIAL, LUIS DoD Physical Therapy: ___ Se ion Segments, 15 Minutes Each Physical Therapy: ___ Session Segments, 15 Minutes Each 20665 2010 MARCIAL, LUIS DoD Modalities Heat Hot Packs Modalities Heat Hot Packs 25880 2010 MARCIAL, LUIS DoD Physical Therapy: ___ Se ion Segments, 15 Minutes Each Physical Therapy: ___ Session Segments, 15 Minutes Each 63068 2010 MARCIAL, LUIS DoD Physical Therapy Neuromuscular Re-education Physical Therapy Neuromuscular Re-education 52861 2010 MARCIAL, LUIS DoD Physical Therapy Neuromuscular Re-education Physical Therapy Neuromuscular Re-education 96453 2010 MARCIAL, LUIS DoD Modalities Heat Hot Packs Modalities Heat Hot Packs 16009 2010 MARCIAL, LUIS DoD Physical Therapy: ___ Se ion Segments, 15 Minutes Each Physical Therapy: ___ Session Segments, 15 Minutes Each 66984 2010 MARCIAL, LUIS DoD Modalities Heat Hot Packs Modalities Heat Hot Packs 70637 2010 BRISA GONZALEZ Physical Therapy Neuromuscular Re-education Physical Therapy Neuromuscular Re-education 09654 2010 BRISA GONZALEZ Physical Therapy: ___ Se ion Segments, 15 Minutes Each Physical Therapy: ___ Session Segments, 15 Minutes Each 83864 2010 BRISA GONZALEZ Pulmonary Function Tests Pulmonary Function Tests 14691 2010 LEIGH TAYLOR [facility] Physical Therapy Service Re-Evaluation Physical Therapy Service Re-Evaluation 61186 2010 SILAS, SUMIT E DoD Modalities Heat Hot Packs Modalities Heat Hot Packs 92120 2010 BRISA GONZALEZ DoD Modalities Ultrasound Modalities Ultrasound 95587 2010 BRISA GONZALEZ DoD A isted Exercises For ROM Assisted Exercises For ROM 84656 2010 BRISA GONZALEZ DoD Modalities Heat Hot Packs Modalities Heat Hot Packs 37739 2010 MARCIAL, LUIS DoD Modalities Ultrasound Modalities Ultrasound 37841 2010 MARCIAL, LUIS DoD A isted Exercises For ROM Assisted Exercises For ROM 04192 2010 MARCIAL, LUIS DoD Modalities Ultrasound Modalities Ultrasound 05348 2010 NATALIIA GUERIN A DoD Modalities Heat Hot Packs Modalities Heat Hot Packs 56382 2010 NATALIIA GUERIN A isted Exercises [place] 39727 2010 NATALIIA GUERIN DoD Modalities Heat Hot Packs Modalities Heat Hot Packs 68834 2010 MARCIAL, LUIS DoD Modalities Ultrasound Modalities Ultrasound 68574 2010 MARCIAL, LUIS DoD A isted Exercises For ROM Assisted Exercises For ROM 15352 2010 MARCIAL, LUIS DoD Physical Therapy Service Evaluation Physical Therapy Service Evaluation 23781 2010 SUMIT ROSEN [place] Pulmonary Function Tests Pulmonary Function Tests 62583 2009 STERLING GEE Threshold Audiogram (Pure Tone) Threshold Audiogram (Pure Tone) 55922 2009 STERLING GEE DoD Audiogram (Screening) Audiogram (Screening) 94560 2009 RAMILA DAMIAN Non-Physician Phone Call To Patient/Provider Brief (5-10min) Non-Physician Phone Call To Patient/Provider Brief (5-10min) 66299 2009 JONEL BUSBY Culture, bacterial, urine; quantitative, sensitivity study 2008 BRISA AHUJA strep swab done [facility] Threshold Audiogram (Pure Tone) Threshold Audiogram (Pure Tone) 40915 2008 JUANJO CLEARY Threshold Audiogram (Pure Tone) Threshold Audiogram (Pure Tone) 89061 2007 MARYANNE SANTOS Services Provided On An Emergency Basis In The Office 2006 JAIME LAIRD Services Provided On An Emergency Basis In The Office 2006 LATIA CARVAJAL Ophthalmological New Patient Start Intermediate Level Care Ophthalmological New Patient Start Intermediate Level Care 87788 2006 LATIA CARVAJAL Threshold Audiogram (Pure Tone) Threshold Audiogram (Pure Tone) 73564 2006 MARYANNE SANTOS Threshold Audiogram (Pure Tone) Threshold Audiogram (Pure Tone) 75645 KEKE SNYDER No data available for this section Ambulato ry Pharmacy Social History Combined list of available smoking, tobacco, and other social history from 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 Social History Type Response Date Comment Sourc e Tobacco smoking status NHIS [place]-TOBACCO USE FORMER CIGARETTES 03/02/2024 [facility] History of tobacco use VA-TOBACCO NEVER USED OTHER TYPE 03/02/2024 [facility] This section is an empty social history section. [facility] Assessment and Plan Combined list of future care activities from Department of Defense and Veterans Affairs facilities (e.g., assessment and plan notes, appointments, orders, and referrals). Additional future care activities may be listed in the Plan of Care section. Result Assessment and Plan Date Source Assessment and Plan No data available for this section 03/27/2024 Ambulatory Pharmacy Plan of Care List of future care activities from [facility] of [facility] facilities. Additional future care activities may be listed in the Assessment and Plan section. Date/Time Care Activity Care Activity Detail Facili ty 03/27/2024 AMBULATORY - MEDICINE [facility] 05/29/2024 AMBULATORY - MEDICINE [facility] 03/16/2024 Consult Order [facility] Cons Front Desk Person's Choice [facility] Functional Status Combined list of recent functional and cognitive assessments recorded at Department of Defense and Veterans Affairs ([place]).[facility] Functional [place] Measurement (FIM) Scale: 1 = Total Assistance (Subject = 0% +), 2 = Maximal Assistance (Subject = 25% +), 3 = Moderate Assistance (Subject = 50% +), 4 = Minimal Assistance (Subject = 75% +), 5 = Supervision, 6 = Modified [place] (Device), 7 = Complete [place] (Timely, Safely). Assessment Date/Time Source Assessment Type Assessment Skill Assessment Score Assessment Details No data available for this section
--- OUTSIDE RECORDS SUMMARY | 2024-03-27 13:30 | XMS_ITS | Clinical Summary ---
Author Organization [facility] Facility Address [address] [place] [id number] Care Team Providers Care Vending Machine Host/Hostess Name Role Phone Unavailable Primary Care Provider [...]
[2024-03-27 16:14] LABS: Hematocrit 51.8 % (42.0-52.0); Hemoglobin 17.3 g/dl (14.0-18.0); Mean Corpuscular HGB Conc 33.4 g/dl (31.0-36.0); Mean Corpuscular Hemoglobin 24.4 pg (27.0-33.0); Mean Platelet Volume 9.7 fL (9.4-12.4); Platelet Count 230 X10*3/uL (160-400); Red Cell Distribution Width 17.3 % (11.0-16.0); White Blood Count 7.6 X10*3/uL (4.8-10.8)
[2024-03-27 16:49] LABS: Prostate Specific Antigen 0.86 ng/mL (<0.05-4.0)
[2024-03-31 14:23] LABS: Testosterone, Total 1850 ng/dL (250-1100)
== END 2024-03-27 12:27 | disposition home or self-care (01) ==
LOC: HO.HMGCLDS 12:26
PROVIDERS: PCP Nurse Practitioner Family; Visit Provider Urology
DX: E29.1 Testicular hypofunction (principal); Z12.5 Encounter for screening for malignant neoplasm of prostate
CPT/HCPCS: 36415; 84153; 84403; 85027

== ENCOUNTER 2024-03-27 13:28 | Outpatient (REF) | payer OTHER, SELFPAY ==
--- NOTE | ~2024-03-27 | XR_ITS ---
EXAMINATION: XR ELBOW 3 VIEWS RIGHT HISTORY: M25.521 - Pain in right elbow COMPARISON: Comparison is made with the prior examination dated 03/06/2024. FINDINGS: Three views of the right elbow are submitted. Osseous mineralization is normal. The previously seen tiny osseous density adjacent to coronoid process of the ulna is not well visualized. No fracture is seen. The joint spaces are preserved. The soft tissues are unremarkable. XR/XR elbow RT min 3V IMPRESSION: The previously seen osseous density adjacent to the coronoid process of the ulna is not well visualized. Electronically signed by: Chuckie Aguillon MD 03/27/2024 03:51 PM [facility]
--- OUTSIDE RECORDS SUMMARY | 2024-03-27 14:32 | XMS_ITS | Encounter Summary ---
Author Organization [facility] Address [address] [place] [address] Care Team Providers Care Swine Genetics Researcher Name Role Phone Elmo Moreno NP Primary Care Provider + [phone] Reason for Referral * Imaging (Routine) - Authorized Specialty Diagnoses / Procedures Referred By Contac t Referred To Contact Radiology Diagnoses Low back pain radiating to right leg Procedures MR Lumbar Spine wo Contrast Mally John PA [address] Phone: tel: fax: Radiology Department [address] Phone: tel: fax: Referral ID Status Reason Start Date Expiration Date V isits Requested Visits Authorized [id number] Authorized 03/20/2024 03/20/2025 1 1 Reason for Visit * Imaging (Routine) - Authorized Specialty Diagnoses / Procedures Referred By Contac t Referred To Contact Radiology Diagnoses Low back pain radiating to right leg Procedures MR Lumbar Spine wo Contrast Mally John PA [address] [place] [address], [address] Phone: tel: fax: Radiology Department - [address] Phone: tel: fax: Referral ID Status Reason Start Date Expiration Date V isits Requested Visits Authorized [id number] Authorized 03/20/2024 03/20/2025 1 1 Encounter Details Date Type Department Care Team (Latest Contact Info) Description 03/27/2024 11:30 AM EST Hospital Encounter Radiology Department - [address] [address] Low back pain radiating to right leg [...] Lumbago documented in this encounter Care Teams Swine Genetics Researcher Relationship Specialty Start Date End Date Elmo Moreno NP [address] [place], [place] PCP - General 05/15/22 documented as of this encounter
--- OUTSIDE RECORDS SUMMARY | 2024-03-27 14:33 | XMS_ITS | Clinical Summary ---
Author Organization [address] [facility] Address [address] [place] [address] Phone Care Team Providers Care Hydro Generation Supervisor Name Role Phone Elmo Moreno NP Primary Care Provider Allergies No known active allergies Medications albuterol HFA (PROAIR HFA ; PROVENTIL HFA ; VENTOLIN HFA) 90 mcg/actuation inhaler INHALE 2 PUFFS BY MOUTH EVERY 6 HOURS NEEDED 022 Active syringe with needle, safety 1 mL 25 gauge x 5/8 syringe BD Disp [place] 25G X 5/8 Misc USE DIRECTED WEEKLY [...] AM EST Hospital Encounter Radiology Department - [address] [address] Low back pain radiating to right leg 03/20/2024 10:15 AM EST Office Visit [facility] [place] [address] [place] [address] Mally John PA Sacroiliitis (CMS/HCC) (Primary Dx); Low back pain radiating to right leg 03/13/2024 Telephone [facility] [place] [facility] [address] [place] [address] Allison Euceda [place] from Last [...] topic Insurance [employer] Care Teams Hydro Generation Supervisor Relationship Specialty Start Date End Date Elmo Moreno NP 262 [facility] [place] PCP - General 05/15/22
--- OUTSIDE RECORDS SUMMARY | 2024-03-27 14:33 | XMS_ITS | Clinical Summary ---
Author Organization [facility] Address [address] [place] [address] Care Team Providers Care Admissions Officer Name Role Phone Elmo Moreno Primary Care Provider [phone] Allergies No known active allergies Medications Medication [...] Advance Directives For more information, please contact: [phone] Latest Code Status on File Code Status Date Activated Date Inactivated Comments Full Code 03/18/2020 12:11 PM 03/18/2020 9:28 PM This c ode status was ascertained in the following way: discussion with patient . Care Teams Admissions Officer Relationship Specialty Start Date End Date Elmo Moreno: [id number] [address] [facility] [place] [address] PCP - General Family Medicine 03/07/20
--- OUTSIDE RECORDS SUMMARY | 2024-03-27 14:33 | XMS_ITS | Encounter Summary ---
Author Organization [facility] Address [address] [place] [address] Care Team Providers Care Senior Windows Systems Engineer Name Role Phone Sterling Moreno NP Primary Care Provider + [phone] Reason for Referral * Imaging (Routine) - Authorized Specialty Diagnoses / Procedures Referred By Contac t Referred To Contact Radiology Diagnoses Low back pain radiating to right leg Procedures MR Lumbar Spine wo Contrast Mally John PA 175 [facility], [address] [address] Phone: tel: fax: Radiology Department [address] Phone: tel: fax: Referral ID Status Reason Start Date Expiration Date V isits Requested Visits Authorized [id number] Authorized 03/20/2024 03/20/2025 1 1 * Imaging (Routine) - Authorized Specialty Diagnoses / Procedures Referred By Contac t Referred To Contact Radiology Diagnoses Sacroiliitis (CMS/HCC) Procedures IR Inj Anes/Steroid Nerve Sacroiliac Joint Right Mally John PA 175 [facility], [address] [place] [address] Phone: tel: fax: [facility] Interventional Radiology [address] [place] [address] Phone: tel: Referral ID Status Reason Start Date Expiration Date V isits Requested Visits Authorized [id number] Authorized 03/20/2024 03/20/2025 1 1 Reason for Visit * Reason Comments Sacral Iliac Joint Pain Eval for possibl e repeat injection Encounter Details Date Type Department Care Team (Late st Contact Info) Description 03/20/2024 10:15 AM EST Office Visit [facility] [place] [facility] [address] [facility] [address] [place] [address] Mally John PA 175 [facility], [address] [place] [address] Sacroiliitis (CMS/HCC) (Primary Dx); Low back pain [...] 25 gauge x 5/8 syringe BD Disp [place] 25G X 5/8 Misc
USE DIRECTED WEEKLY [...] PM EST [facility] [place] documented in this encounter Plan of Treatment [...] 03/20/2024 added in this encounter Care Teams Senior Windows Systems Engineer Relationship Specialty Start Date End Date Sterling Moreno NP [address] [facility] [place], [place] PCP - General 05/15/22 documented as of this encounter
--- OUTSIDE RECORDS SUMMARY | 2024-03-27 14:33 | XMS_ITS | Encounter Summary ---
Author Organization [facility] Address [address] [place] [address] Care Team Providers Care Eyelet Maker Name Role Phone Elmo Moreno NP Primary Care Provider Encounter Details Date Type Department Care Team (Late st Contact Info) Description 03/13/[address] [place] [address] Allison Euceda [place] Social History [...] on filedocumented in this encounter Care Teams Eyelet Maker Relationship Specialty Start Date End Date Elmo Moreno NP 262 [facility] [place] PCP - General 05/15/22 documented as of this encounter
--- OUTSIDE RECORDS SUMMARY | 2024-03-27 14:34 | XMS_ITS | Continuity of Care Document ---
Author Name [facility]OD[facility]MA Organization [facility] Care Team Providers Care Decision Unit Rn Name Role Phone DOD-MA Unavailable Unavailable Problems Combined list of problems from 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 It does not include entries that were removed or entered in error. Problem Status Onset Date Problem Type Date of Resolution Comments Source Other hammer toe(s) (acquired), right foot Active 1898 Condition DoD Anxiety (SCT [id number]) Active Condition [facility] Chronic back pain Active Condition [facility] Chronic kidney disease stage 3A Active Condition Mar 03 Entered By: EDITH ALEJANDRO Comment: Stage 3a chronic kidney disease 03/02/2021 [facility] Contact dermatitis Active Condition [facility] Degenerative Joint Disease of Shoulder Region (SCT [id number]) Active Condition [facility] Dermatophytosis Active Condition Mar 03, 2024 Entered By: EDITH ALEJANDRO Comment: Dermatophytosis tinea cruris [facility] Erectile Dysfunction (SCT [id number]) Active Condition [facility] GERD - Gastro-Esophageal Reflux Disease (SCT [id number]) Active Condition [facility] Gout Active Condition [facility] Hammer toe Active Condition Mar 03 Entered By: EDITH ALEJANDRO Comment: hammer toe(s) (acquired), right foot [facility] History of nicotine dependence Active Condition [facility] HTN - Hypertension (SCT [id number]) Active Condition [facility] Pain in Lumbar Spine (SCT [id number]) Active Condition [facility] [...] ICD-10-CM Z71.89 Other specified counseling Active Diagnosis [facility] Diagnosis: ICD-10-CM I10 Essential (primary) hypertension Active Diagnosis [facility] Medications Combined list of outpatient medications from [...] ORAL, IVAX PHARMACEUT, 100 ea. BOTTLE Active [id number] 2023 90 Pharmac y Data Transac tion Service Facilit y hydroCHLORO thiazide 12.5 mg oral tablet hydroCHL OROthiaz magda 12.5 mg oral tablet Start Date: 10/08/20 Status: Ordered Ordered No Facilit y Access HYDROCHLORO THIAZIDE 25MG/LOSART AN POTASSIUM 100MG TAB TAKE ONE TABLET BY MOUTH ORAL ACTIVE GERARD RODRIGUEZ 2024 [facility] ibuprofen 600 mg oral tablet ibuprofe n 600 mg oral tablet Start Date: 10/29/20 Status: Ordered Ordered No Facilit y Access lidocaine 5% topical film lidocain e 5% topical film Start Date: 05/27/20 Status: Ordered Ordered No Facilit y Access LORAZEPAM (lorazepam) , 0.5 MG, TABLET, ORAL, AUROBINDO PHARM, 500 ea. BOTTLE Active [id number] 2023 30 Pharmac y Data Transac tion Service Facilit y LORAZEPAM (lorazepam) , 0.5 MG, TABLET, ORAL, AUROBINDO PHARM, 500 ea. BOTTLE Active [id number] 4 2023 30 Pharmac y Data Transac tion Service Facilit y LORAZEPAM (lorazepam) , 0.5 MG, TABLET, ORAL, TEVA [place], 500 ea. BOTTLE Active [id number] 2023 30 Pharmac y Data Transac tion Service Facilit y LORAZEPAM 0.5MG TAB TAKE ONE TABLET BY MOUTH ORAL ACTIVE MICHAEL GERARD 2024 [facility] LOSARTAN-HY DROCHLOROTH IAZIDE (LOSARTAN/H YDROCHLOROT HIAZIDE), 100MG-25MG, TABLET, ORAL, AUROBINDO PHARM, 90 ea. BOTTLE Active [id number] 2023 90 Pharmac y Data Transac tion Service Facilit y LOSARTAN-HY DROCHLOROTH IAZIDE (LOSARTAN/H YDROCHLOROT HIAZIDE), 100MG-25MG, TABLET, ORAL, AUROBINDO PHARM, 90 ea. BOTTLE Active [id number] 4 2023 90 Pharmac y Data Transac [...] MISCELL, NAVEED JAIME, 100 ea. RODRIGUEZ cárdenas [id number] : 2023 0 Pharmac y Data Transac tion Service Facilit y meloxicam 15 mg oral tablet meloxica m 15 mg oral tablet Start Date: 04/17/21 Status: Ordered Ordered No Facilit y Access NAPROXEN (NAPROXEN), 500MG, TABLET, ORAL, GLENMARK PHARMA, 500 ea. BOTTLE Active [id number] 2023 60 Pharmac y Data Transac tion Service Facilit y NAPROXEN (NAPROXEN), 500MG, TABLET, ORAL, GLENMARK PHARMA, 500 ea. BOTTLE Active [id number] 4 2023 60 Pharmac y Data Transac tion Service Facilit y NAPROXEN 500MG TAB TAKE ONE TABLET BY MOUTH ORAL ACTIVE MICHAEL GERARD 2024 [facility] OMEPRAZOLE (omeprazole ), 20 MG, CAPSULE DR ORAL, PR[employer]MS [employer]MENTS, 1000 ea. BOTTLE Active [id number] 2023 90 Pharmac y Data Transac tion Service Facilit y omeprazole 20 mg oral delayed release capsule omeprazo le 20 mg oral delayed release capsule Start Date: 04/16/21 Status: Ordered Ordered No Facilit y Access OMEPRAZOLE 20MG CAP,EC TAKE 1 CAPSULE BY MOUTH EVERY MORNING 30 MINUTES BEFORE BREAKFAS T ORAL ACTIVE GERARD RODRIGUEZ 2024 [facility] oxyCODONE 5 mg oral [...] BD MEDICAL SURG, 100 ea. RODRIGUEZ cárdenas [id number] : 2023 0 Pharmac y Data Transac [...] INTRAM USCULA R ACTIVE GERARD RODRIGUEZ 2024 [facility] tiZANidine 2 mg oral tablet [...] Site Reaction Lot Number CVX Code Drug Social Services Technician Status Comments Source ANTHRAX VACCINE, UNSPECIFIED 6 2023 319 complet ed Lot#: [id number] [facility] Influenza, injectable, quadrivalent, preservative free 2021 [id number] AppZeroKline (SKB) complet ed Influenza , injectabl e, quadrival ent, preservat gauri free [facility] tetanus, diphtheria, acellular pertu is 2021 [id number] sanofi pasteur complet ed tetanus, diphtheri a, acellular pertussis 04/24/21 Given Ambulat ory Pharmac y TDAP 2 2021 115 complet ed tetanus toxoid, reduced diphtheri a toxoid, and acellular pertussis vaccine, adsorbed Lot#: [id number] Mfr: SANOFI PASTEUR [facility] tetanus toxoid, reduced diphtheria toxoid, and acellular pertu is vaccine, adsorbed 2 2021 [id number] Sanofi Pasteur (PMC) complet ed tetanus toxoid, reduced diphtheri a toxoid, and acellular pertussis vaccine, adsorbed DoD influenza virus vaccine, inactivated 2020 [id number] Seqirus complet ed influenza virus vaccine, inactivat ed 01/18/21 Given Ambulat ory Pharmac y Influenza, injectable, Madin Orly Canine Kidney, quadrivalent with preservative 9 2020 [id number] Seqirus (SEQ) comple t ed Influenza [...] 100 mcg or 50 mcg dose Lot#: [id number] Mfr: MitoGeneticsA Lookwider. [facility] SARS-COV-2 (COVID-19) vaccine, mRNA, spike protein, LNP, preservative free, 100 mcg or 50 mcg dose 2 2020 Nutmeg Educationa [facility], ComplyMD. (MOD) complet ed SARS-COV- 2 (COVID-19 ) [...] 100 mcg or 50 mcg dose Lot#: [id number] Mfr: MitoGeneticsA [employer]wider. [facility] SARS-COV-2 (COVID-19) vaccine, mRNA, spike protein, LNP, preservative free, 100 mcg or 50 mcg dose 1 2020 Moderna [facility], ComplyMD. (MOD) complet ed SARS-COV- 2 (COVID-19 ) vaccine, mRNA, spike protein, LNP, preservat gauri free, 100 mcg or 50 mcg dose DoD influenza, injectable, quadrivalent- pf 2019 [id number] 150 Seqirus complet ed influenza , injectabl e, quadrival ent-pf 12/31/19 Given Ambulat ory Pharmac y Influenza, injectable, quadrivalent, preservative free 1 2019 [id number] 077 150 Seqirus (SEQ) complet ed Influenza , injectabl e, quadrival ent, preservat gauri free DoD influenza, injectable, quadrivalent- pf 2018 [id number] 520 150 Seqirus complet ed influenza , injectabl e, quadrival ent-pf 11/20/18 Given Ambulat ory Pharmac y Influenza, injectable, quadrivalent, preservative free 17 2018 [id number] 520 150 Seqirus (SEQ) complet ed Influenza [...] typhoid Vi capsular polysaccharid e vac 2017 [id number] sanofi pasteur complet ed typhoid Vi capsular polysacch aride vac 06/20/17 Given Ambulat ory Pharmac y TYPHOID, VICPS 2017 101 complet ed typhoid Vi capsular polysacch aride vaccine Lot#: [id number] Mfr: SANOFI PASTEUR [facility] typhoid Vi capsular polysaccharid e vaccine 5 2017 [id number] Sanofi Pasteur ([facility]) complet ed typhoid Vi capsular [...] virus vaccine DoD influenza, seasonal, injectable 2016 [id number] complet ed influenza , seasonal, injectabl e 12/13/16 Given Ambulat ory Pharmac y Influenza, seasonal, injectable, preservative free 2016 NEW, () Not Given Influenza , seasonal, injectabl e, preservat gauri free DoD Influenza, seasonal, injectable 1 2016 [id number] Transcribed (TRS) complet ed Influenza , [...] gauri DoD influenza, live, intranasal,qu adrivalent 2014 [id number] Medimmune Inc comple t ed influenza , live, intranasa l,quadriv alent 11/20/14 Given Ambulat ory Pharmac y influenza, live, intranasal, quadrivalent 13 2014 [id number] 149 MedImmune, Inc. (MED) complet ed influenza , live, intranasa l, quadrival ent DoD influenza, live, intranasal,qu adrivalent 2013 [id number] 149 Medimmune Inc comple t ed influenza , live, intranasa l,quadriv alent 12/14/13 Given Ambulat ory Pharmac y influenza, live, intranasal, quadrivalent 12 2013 [id number] 149 MedImmune, Inc. (MED) complet ed influenza , live, intranasa l, quadrival ent DoD influenza, live, intranasal,qu adrivalent 2012 [id number] 149 Medimmune Inc comple t ed influenza , live, intranasa l,quadriv alent 10/13/12 Given Ambulat ory Pharmac y influenza, live, intranasal, quadrivalent 0 2012 [id number] 149 MedImmune, Inc. (MED) complet ed influenza , live, intranasa l, quadrival ent DoD typhoid Vi capsular polysaccharid e vac 2012 [id number] 101 sanofi pasteur complet ed typhoid Vi capsular polysacch aride vac 08/16/12 Given Ambulat ory Pharmac y anthrax vaccine 2012 [id number] Emergent Biosolutions complet ed anthrax vaccine 08/16/12 Given Ambulat ory Pharmac y ANTHRAX VACCINE, UNSPECIFIED 7 2012 319 complet ed Lot#: [id number] [facility] anthrax vaccine 7 2012 [id number] Emergent BioDefense Operations [place] ([facility]) complet ed anthrax vaccine DoD typhoid Vi capsular polysaccharid e vaccine 4 2012 [id number] 101 Sanofi Pasteur (PMC) complet ed typhoid Vi capsular polysacch aride vaccine DoD influenza virus vaccine, live 2011 [id number] 111 Skilljar Inc comple t ed influenza virus vaccine, live 10/30/11 Given Ambulat ory Pharmac y influenza virus vaccine, live, attenuated, for intranasal use 0 2011 [id number] 111 iFLYER, ComplyMD. (MED) complet ed influenza virus vaccine, live, attenuate d, for intranasa l use DoD tetanus, diphtheria, acellular pertu is 2011 [id number] 115 GlaxoSmithKli ne complet ed tetanus, diphtheri a, acellular pertussis 05/22/11 Given Ambulat ory Pharmac y TDAP 2011 115 complet ed tetanus toxoid, reduced diphtheri a toxoid, and acellular pertussis vaccine, adsorbed Lot#: [id number] [facility] tetanus toxoid, reduced diphtheria toxoid, and acellular pertu is vaccine, adsorbed 0 2011 [id number] 115 [facility] (SKB) complet ed tetanus toxoid, reduced diphtheri a toxoid, and acellular pertussis vaccine, adsorbed DoD anthrax vaccine 2011 [id number] Emergent Biosolutions complet ed anthrax vaccine 03/09/11 Given Ambulat ory Pharmac y typhoid Vi capsular polysaccharid e vac 2011 [id number] 101 sanofi pasteur complet ed typhoid Vi capsular polysacch aride vac 03/09/11 Given Ambulat ory Pharmac y ANTHRAX VACCINE, UNSPECIFIED 6 2011 319 complet ed Lot#: [id number] [facility] TYPHOID, VICPS 3 2011 101 complet ed typhoid Vi capsular polysacch aride vaccine Lot#: [id number] Mfr: SANOFI PASTEUR [facility] anthrax vaccine 6 2011 [id number] Emergent BioDefense Operations [place] ([facility]) complet ed anthrax vaccine DoD typhoid Vi capsular polysaccharid e vaccine 3 2011 [id number] 101 Sanofi Pasteur (PMC) complet ed typhoid Vi capsular polysacch aride vaccine DoD influenza virus vaccine, live 2010 [id number] 111 Skilljar Inc comple t ed influenza virus vaccine, live 11/04/10 Given Ambulat ory Pharmac y influenza virus vaccine, live, attenuated, for intranasal use 9 2010 [id number] 111 iFLYER, ComplyMD. (MED) complet ed influenza virus vaccine, live, attenuate d, for intranasa l use [facility] influenza virus vaccine,split 2009 [id number] sanofi pasteur complet ed influenza virus vaccine,s plit 11/04/09 Given Ambulat ory Pharmac y influenza virus vaccine, split virus (incl. purified surface antigen)-reti red CODE 8 2009 [id number] 15 Sanofi Pasteur ([facility]) complet ed influenza virus vaccine, split virus (incl. purified surface antigen)- retired CODE DoD anthrax vaccine 2009 [id number] Emergent Biosolutions complet ed anthrax vaccine 09/04/09 Given Ambulat ory Pharmac y anthrax vaccine 5 2009 [id number] Emergent BioDefense Operations Mark ([facility]) complet ed anthrax vaccine DoD Novel influenza-H1N 1-09,pf,injec table 2009 [id number] 1 126 Novartis Pharmaceutica ls complet ed Novel influenza -L2V1-36, pf,inject able 02/25/09 Given Ambulat ory Pharmac y Novel influenza-H1N 1-09, preservative- free, injectable 1 2009 [id number] 1 126 Novartis Pharmaceutica l Tyshawn. (NOV) complet ed Novel influenza -S8A0-56, preservat gauri-free, injectabl e DoD influenza virus vaccine, live 2008 [id number] 111 Skilljar Inc comple t ed influenza virus vaccine, live 10/26/08 Given Ambulat ory Pharmac y influenza virus vaccine, live, attenuated, for intranasal use 1 2008 [id number] 111 iFLYER, ComplyMD. (MED) complet ed influenza virus vaccine, live, attenuate d, for intranasa l use DoD anthrax vaccine 2008 [id number] Emergent Biosolutions complet ed anthrax vaccine 03/27/08 Given Ambulat ory Pharmac y ANTHRAX VACCINE, UNSPECIFIED 5 2008 319 complet ed Lot#: [id number] [facility] anthrax vaccine 5 2008 [id number] Emergent [employer] [place] (MIP) complet ed anthrax vaccine DoD influenza virus vaccine,split 2007 [id number] 15 CSL Behring complet ed influenza virus vaccine,s plit 11/14/07 Given Ambulat ory Pharmac y influenza virus vaccine, split virus (incl. purified surface antigen)-reti red CODE 1 2007 [id number] 15 CS Agricanherapies, Inc. (CSL) complet ed influenza virus vaccine, split virus (incl. purified surface antigen)- retired CODE DoD anthrax vaccine 2007 [id number] Emergent Biosolutions complet ed anthrax vaccine 09/12/07 Given Ambulat ory Pharmac y ANTHRAX VACCINE, UNSPECIFIED 4 2007 319 complet ed Lot#: [id number] [facility] anthrax vaccine 4 2007 [id number] Emergent BioDefense Operations Mark (MIP) complet ed anthrax vaccine DoD anthrax vaccine 2007 [id number] Emergent Biosolutions complet ed anthrax vaccine 03/30/07 Given Ambulat ory Pharmac y ANTHRAX VACCINE, UNSPECIFIED 3 2007 319 complet ed Lot#: [id number] [facility] anthrax vaccine 3 2007 [id number] Emergent [employer] [place] (MIP) complet ed anthrax vaccine DoD anthrax vaccine 2007 [id number] Emergent Biosolutions complet ed anthrax vaccine 03/10/07 Given Ambulat ory Pharmac y ANTHRAX VACCINE, UNSPECIFIED 2 2007 319 complet ed Lot#: [id number] [facility] anthrax vaccine 2 2007 [id number] Emergent BioDefense Operations Mark (MIP) complet ed anthrax vaccine DoD anthrax vaccine 2007 [id number] Emergent Biosolutions complet ed anthrax vaccine 02/21/07 Given Ambulat ory Pharmac y ANTHRAX VACCINE, UNSPECIFIED 1 2007 319 complet ed Lot#: [id number] [facility] anthrax vaccine 1 2007 [id number] 24 Emergent [employer] [place] (MIP) complet ed anthrax vaccine DoD vaccinia (smallpox) vaccine 0 2007 75 () Not Given vaccinia (smallpox ) vaccine DoD influenza virus vaccine, live 2006 [id number] 111 Skilljar Inc comple t ed influenza virus vaccine, live 01/10/07 Given Ambulat ory Pharmac y influenza virus vaccine, live, attenuated, for intranasal use 1 2006 [id number] 111 iFLYER, Inc. (MED) complet ed influenza virus vaccine, live, attenuate d, for intranasa l use DoD typhoid vaccine, live, oral 2006 [id number] 25 ascentify Research [place] complet ed typhoid vaccine, live, oral 03/05/06 Given Ambulat ory Pharmac y typhoid vaccine, live, oral 1 2006 [id number] 25 Portapure ([facility]) complet ed typhoid vaccine, live, oral DoD influenza virus vaccine, live 2005 [id number] 111 Skilljar Inc comple t ed influenza virus vaccine, live 12/04/05 Given Ambulat ory Pharmac y influenza virus vaccine, live, attenuated, for intranasal use 1 2005 [id number] 111 iFLYER, Inc. (MED) complet ed influenza virus vaccine, live, attenuate d, for intranasa l use DoD influenza virus vaccine, live 2004 [id number] 111 MediAskNshare Inc comple t ed influenza virus vaccine, live 12/25/04 Given Ambulat ory Pharmac y influenza virus vaccine, live, attenuated, for intranasal use 1 2004 [id number] 111 Coraidune, Inc. (MED) complet ed influenza virus vaccine, live, attenuate d, for intranasa l use DoD influenza virus vaccine, live 2004 [id number] 111 Medimmune Inc comple t ed influenza [...] live, attenuated, for intranasal use 0 2004 [id number] 111 iFLYER, Inc. (MED) complet ed influenza virus vaccine, live, attenuate d, for intranasa l use DoD hepatitis A-hepatitis B vaccine 2003 [id number] 104 GlaxoSmithKli ne complet ed hepatitis A-hepatit is B vaccine 12/07/03 Given Ambulat ory Pharmac y HEP A-HEP B 3 2003 104 complet ed hepatitis A and hepatitis B vaccine Lot#: [id number] [facility] hepatitis A and hepatitis B vaccine 3 2003 [id number] 104 SmithKline (SKB) complet ed hepatitis A and hepatitis B vaccine DoD hepatitis A-hepatitis B vaccine 2003 [id number] 104 GlaxoSmithKli ne complet ed hepatitis A-hepatit is B vaccine 07/07/03 Given Ambulat ory Pharmac y HEP A-HEP B 2 2003 104 complet ed hepatitis A and hepatitis B vaccine Lot#: [id number] [facility] hepatitis A and hepatitis B vaccine 2 2003 [id number] 6 104 SmithKline (SKB) complet ed hepatitis A and hepatitis B vaccine DoD hepatitis A-hepatitis B vaccine 2003 [id number] 6 104 GlaxoSmithKli ne complet ed hepatitis A-hepatit is B vaccine 06/06/03 Given Ambulat ory Pharmac y HEP A-HEP B 1 2003 104 complet ed hepatitis A and hepatitis B vaccine Lot#: [id number] [facility] measles, mumps and rubella virus vaccine 0 2003 03 () Not Given measles, mumps and rubella virus vaccine DoD varicella virus vaccine 1 2003 21 () Not Given varicella virus vaccine DoD hepatitis A and hepatitis B vaccine 1 2003 [id number] 6 RightSignature [facility] ([facility]B) complet ed hepatitis A and hepatitis B vaccine DoD poliovirus vaccine, inactivated 2003 [id number] 10 sanofi pasteur complet ed polioviru s vaccine, inactivat ed 06/01/03 Given Ambulat ory Pharmac y tetanus-dipht h toxoids (Td) adult/adol 2003 [id number] 09 sanofi pasteur complet ed tetanus-d iphth toxoids (Td) adult/ado l 06/01/03 Given Ambulat ory Pharmac y tuberculin purified protein derivative 2003 [id number] 96 sanofi pasteur complet ed tuberculi n purified protein derivativ e 06/01/03 Given Ambulat ory Pharmac y meningococcal polysaccharid e (MPSV4) 2003 [id number] 32 sanofi pasteur complet ed meningoco ccal polysacch aride (MPSV4) 06/01/03 Given Ambulat ory Pharmac y influenza virus vaccine, whole virus 2003 [id number] Novartis Pharmaceutica complet ed influenza virus vaccine, whole virus 06/01/03 Given Ambulat ory Pharmac y MENINGOCOCCAL MPSV4 2003 32 complet ed meningoco ccal polysacch aride vaccine (MPSV4) Lot#: [id number] Mfr: SANOFI PASTEUR [facility] POLIO, UNSPECIFIED FORMULATION 2003 89 complet ed Sanofi Pasteur Lot#: [id number] [facility] CorsairU SETS [facility] TD(ADULT) UNSPECIFIED FORMULATION 2003 139 complet ed tetanus and diphtheri a toxoids, adsorbed, preservat gauri free, for adult use (2 Lf of tetanus toxoid and 2 Lf of diphtheri a toxoid) Lot#: [id number] Mfr: SANOFI PASTEUR [facility] CorsairU SETS [facility] tetanus and diphtheria toxoids, adsorbed, preservative free, for adult use (2 Lf of tetanus toxoid and 2 Lf of diphtheria toxoid) 0 2003 [id number] 09 Sanofi Pasteur (PMC) complet ed tetanus and diphtheri a toxoids, adsorbed, preservat gauri free, for adult use (2 Lf of tetanus toxoid and 2 Lf of diphtheri a toxoid) [facility] poliovirus vaccine, inactivated 0 2003 [id number] 10 Sanofi Pasteur (PMC) complet ed polioviru s vaccine, inactivat ed DoD influenza virus vaccine, whole virus 0 2003 [id number] PowderJect Pharmaceutica ls (PWJ) complet ed influenza virus vaccine, whole virus DoD meningococcal polysaccharid e vaccine (MPSV4) 0 2003 [id number] Sanofi Pasteur (PMC) complet ed meningoco ccal polysacch aride vaccine (MPSV4) [facility] Vital Signs Combined list of inpatient and outpatient Vital Signs from Department of Defense and Veterans Affairs, ranging from 12 months to all on record, depending upon the facility. Vital Sign Value Date Comments Source SYSTOLIC BLOOD PRESSURE 144 03/02/19 25 15:33:11 [facility] [place] [facility] DIASTOLIC BLOOD PRESSURE 100 025 15:33:11 [facility] RESPIRATION 16 03/02/2024 15:33:11 [facility] Encounters Combined list [...] DC Date Status Disposition Source [employer]([facility]) TELE CONSULT [id number] chest congest ion with fever KATE, SERGIO 03/23 [employer]) [employer](Int Med Clinic) OUTPATIENT [id number] URI symptom s PITER MALDONADO 03/23 Released w/o Limitations [employer](I nt Med Clinic) [employer](Fli ght Medicine Clinic) OUTPATIENT [id number] [facility] part 2 YAYA SANTOS M 04/27 Released w/o Limitations [employer](F light Medicin e Clinic) [employer]([facility]) TELE CONSULT [id number] foot swollen and cant walk on it; pt has an appt tomorro w but ... MODESTO HANKINS 05/05 [employer] Pract[facility] Red) [facility] Blue) OUTPATIENT [id number] swollen painful R foot RADDEN, JAIME D 05/05 Released w/o Limitations [employer]([facility] Pract[facility]) [facility] Red) OUTPATIENT [id number] pt injured r foot pain ful when put pressur e painful to touch KATE, SERGIO 05/06 Released w/o Limitations [employer](F amily Practic e Red) [facility](Opt ometry Clinic) OUTPATIENT [id number] possibl e foreign body LATIA CARVAJAL 05/06 Released w/o Limitations [employer](O ptometr y Clinic) [facility]) TELE CONSULT [id number] right foot pain RADDEN, JAIME D 05/08 [employer] Pract[facility]) [facility]) OUTPATIENT [id number] f/u on gout RADDEN, JAIME D 05/10 Released w/o Limitations [employer](F amily Practic e Blue) [facility](Fam mara Practice Blue) OUTPATIENT [id number] gout RADDEN, JAIME D 05/13 Released w/o Limitations [facility](F amily Practic e Blue) [employer](Fam [facility]) TELE CONSULT [id number] CONCERN S ABOUT REFERRA L DOM REDMOND 05/14 [employer]([facility] Pract[facility]) [employer](Fam [facility]) OUTPATIENT [id number] profile and med refill KATE, SERGIO 07/20 Released with Work/Duty Limitations [employer](F [facility] Practic [facility] Red) [employer](Fam [facility] Practice [facility]) TELE CONSULT [id number] referra l for orthope dic special ist for ankle KATE, SERGIO 08/02 [employer](F amily Practic e Red) [employer](Fam mara Practice Red) TELE CONSULT [id number] pt was sent to orthope dic and pt was giving a out of work MODESTO Julio 09/09 [employer](F [facility]ily Pract[facility] Red) [facility] Group([facility]) TELE CONSULT [id number] pt needs med refill ADALET 60mg pt has 5 pills left KATE, SERGIO 09/16 [employer]([facility]) [facility]) OUTPATIENT [id number] f/u htn (adalat increas ed last appt) KATE, SERGIO 10/13 Released w/o Limitations [employer]([facility]) [employer]([facility]) OUTPATIENT [id number] oversea s DEBBIE Boone 12/13 Released w/o Limitations [employer]([facility]) [employer]([facility]) OUTPATIENT [id number] pt pcsing in april, eeds CONOR Blanchard 01/28 Released w/o Limitations [employer] [facility]) [facility]) OUTPATIENT [id number] medical EDIE Rinaldi 03/09 Released w/o Limitations [employer]([facility]) [facility]) OUTPATIENT [id number] F/U from appt Feb 22--med mary melchor EDIE IBANEZ. 03/23 Released w/o Limitations [employer]([facility]) [employer]([facility] Red) OUTPATIENT [id number] follow up on bp EDIE IBANEZ. 03/30 Released w/o Limitations [employer]([facility]) [employer]([facility] Red) TELE CONSULT [id number] Pt has questio ns about pha and hiv test MODETSO HANKINS 04/08 [employer]([facility]) [employer]([facility]) OUTPATIENT [id number] pha due oversea JOIE Lizama 04/11 Released w/o Limitations [employer](P BUENO Cell) [employer]([facility]) OUTPATIENT [id number] occp pe/stru ctural MX YAYA SANTOS 04/12 Released w/o Limitations [employer](F light Medicin e Clinic) [employer]([facility]) OUTPATIENT [id number] Inproce ssing Record Review EDITH DESAI 07/21 Released w/o Limitations [employer]([facility]) [employer]([facility]) OUTPATIENT [id number] PHA JOHANNY AGUILERA 04/27 Released w/o Limitations [employer]([facility]) [employer]([facility]) TELE CONSULT [id number] f/u pha SYRIAC, UN DIAN 05/01 [employer]([facility]) [employer]([facility]) OUTPATIENT [id number] f/u 3day bp check SYRIAC, UN DIAN 05/04 Released w/o Limitations [employer]([facility]) [employer]([facility] Surgeon [facility]) OUTPATIENT [id number] [facility]- AUDIOGR AM,MED HY,PHY EX,WORK PLACE EXP,RES P QUEST JUANJO CLEARY 07/05 Released w/o Limitations [employer](F light Surgeon Office) [employer]([facility]) OUTPATIENT [id number] JANNA Garcia 08/03 Sick at Home/Quarter s [employer]([facility] Pract[facility] Clinic) [employer]([facility]) OUTPATIENT [id number] FT- MISSY MCKEON Tristan 11/05 Released w/o Limitations [employer]([facility]) [employer]([facility]) OUTPATIENT [id number] FT-MARKO BRISA AHUJA 11/06 Sick at Home/Quarter s [employer]([facility] Pract[facility]) [employer]([facility]) OUTPATIENT [id number] ft nasal congest ion product gauri cough clear sore throat JONEL BUSBY 11/09 Sick at Home/Quarter s [employer]([facility] Pract[facility]) [employer]([facility]) DENTAL [id number] Exam JOSE RAFAEL MAGAÑA 12/21 Released w/o Limitations [employer](D ental Clinic) [employer]([facility]) DENTAL [id number] DEION Pardo 12/21 Released w/o Limitations [employer](D ental Clinic) [employer]([facility]) TELE CONSULT [id number] VASECTO MY CONSULT XIANG MATHUR R 01/28 [employer]([facility]) [employer]([facility]) OUTPATIENT [id number] Vas Consult XIANG MATHUR R 03/01 Released w/o Limitations [employer]([facility]) [employer]([facility]) OUTPATIENT [id number] F/U HBP, LABS XIANG MATHUR R 04/02 Released w/o Limitations [employer]([facility]) [employer]([facility]) OUTPATIENT [id number] ANN MARIE YOST 04/18 Released w/o Limitations [employer](P BUENO Cell) [employer]([facility]) TELE CONSULT [id number] RADHA Gutierrez FOR SURGERY BRYANNA ADORNO 04/25 [facility] Pract[facility] Clinic) [employer]([facility]) TELE CONSULT [id number] con lv or quarter s XIANG MATHUR 08/12 [facility]) [employer]([facility]) OUTPATIENT [id number] Per XIANG Fitzpatrick 08/13 Released w/o Limitations [facility] [employer]([facility]) [facility] [employer]([facility]) TELE CONSULT [id number] F/U BLOOD PRESSUR E MARK MCCLENDON 09/02 [facility]) [employer]([facility]) TELE CONSULT [id number] Deploym ent ELMER Fofana 09/04 [facility] Pract[facility] Clinic) [employer]([facility]) OUTPATIENT [id number] finger pain x months/ pt request ed alterna te pcm. (pt's pcm on leave) MAYITO CHAVEZ 09/05 Released w/o Limitations [facility]) [facility] [employer]([facility]) TELE CONSULT [id number] CALL BACK FOR DEPLOYM ENT ELMER ALBERTO 09/10 [facility]) [facility] [id number] [facility] audio normal no exam needed RAMLIA DAMIAN 09/12 Released w/o Limitations [employer](F light Surgeon Office) [employer] OUTPATIENT [id number] [facility] STERLING GEE 09/20 Released w/o Limitations [employer](F light Surgeon Office) [facility] [employer]([facility]) TELE CONSULT [id number] RETRO REFERRA L CHAPIS LEE 12/06 Referred for Appointment [facility]) [employer]([facility]) TELE CONSULT [id number] quarter s MARK MCCLENDON 12/06 [employer]([facility] Pract[facility] Clinic) [employer]([facility]) TELE CONSULT [id number] RETRO REFERMISSY FERRELL 12/12 Referred for Appointment [employer]([facility]) [employer]([facility]) TELE CONSULT [id number] NAUSEA/ BUENO X TODAY CHAPIS FULTON 12/24 Referred for Appointment [employer]([facility] Pract[facility]) [employer]([facility]) TELE CONSULT [id number] work excuse/ quarter s CAMDENCANDY MICHEL Tristan 12/24 [employer]([facility]) [employer]([facility]) TELE CONSULT [id number] Quarter s [employer] CANDY TOPETE Tristan 01/03 [employer]([facility] Pract[facility]) [facility] [employer]([facility]) OUTPATIENT [id number] NVD, BUENO, chills -FT- JUANJO FULTON 01/24 Sick at Home/Quarter s [employer]([facility] Pract[facility] e Clinic) [employer]([facility]) OUTPATIENT [id number] ON GOING RASH X 1 MTH //POSSI BLE DERMATO LOGY REFERBRYANNA CHAVEZ 02/05 Released w/o Limitations [employer]([facility] Pract[facility]) [employer]([facility]) TELE CONSULT [id number] Referra demar gutierrez n for CHAPIS Gardiner 02/18 Referred for Appointment [employer]([facility] Pract[facility]) [employer]([facility]) OUTPATIENT [id number] SORE THROAT, HEADACH E, FEVER, CHILLS TANNER VILLASEÑOR 02/28 Released w/o Limitations [employer]([facility] Practic [facility] Clinic) [employer]([facility]) TELE CONSULT [id number] KEENAN SHERIFF 03/11 Referred for Appointment [employer]([facility] Pract[facility] e Clinic) [employer]([facility]) TELE CONSULT [id number] NURSE CONSULT /REACTI ON TO MEDS KEENAN SHERIFF 03/20 [employer]([facility] Pract[facility] Clinic) [employer]([facility]) OUTPATIENT [id number] sore throat/ med side effects CANDY TOPETE 03/24 Released w/o Limitations [employer]([facility] Pract[facility]) [employer]([facility]) OUTPATIENT [id number] MARK Benedict 04/21 Sick at Home/Quarter s [employer]([facility] Pract[facility] Clinic) [employer]([facility]) OUTPATIENT [id number] PHA/EMS CHRISTIVICKIE RINCON Lis 05/29 Released w/o Limitations [employer](P BUENO Cell) [employer](Fam Med Cl Tm B Non-Ad) TELE CONSULT [id number] ACTIVE DUTY/ RIGHT CALF PAIN EKENAN SHERIFF 08/19 [facility] [employer](F am Med Cl Tm B Non-Ad) [employer]([facility]) OUTPATIENT [id number] right calf pain since last Thursda y CANDY TOPETE 08/20 Released w/o Limitations [facility] [employer]([facility]) [facility] [employer](Fam Med Cl Tm B Non-Ad) TELE CONSULT [id number] LIAN HOLT PROFILE /WAS SEEN YESTERD KEENAN HOWE 08/21 Medical Group(F am Med Cl Tm B Non-Ad) [facility] [employer](Fam Med Cl Tm B Non-Ad) TELE CONSULT [id number] profile extensi on request KISHORE MARROQUIN 09/05 [facility] [employer](F am Med Cl Tm B Non-Ad) [employer](Fam Med Cl Tm B Non-Ad) TELE CONSULT [id number] PROFILE EXTENSI ON KISHORE MARROQUIN O 09/08 [employer](F am Med Cl Tm B Non-Ad) [employer](Fam Med Cl Tm B Non-Ad) OUTPATIENT [id number] fu right leg / profile CANDY TOPETE 09/17 Released w/o Limitations [employer](F am Med Cl Tm B Non-Ad) [employer]([facility] Affiliate s) OUTPATIENT [id number] F/U PROFILE ANGEL FULTONOlga Benz 10/03 Released w/o Limitations [employer](F [place] Affilia nikolay) [employer]([facility]) OUTPATIENT [id number] SUMIT ROSEN 10/03 Released with Work/Duty Limitations [employer](P [facility]ys[facility] Therapy Clinic) [employer]([facility]) OUTPATIENT [id number] Rt lower leg pain MARCIAL, LUIS 10/09 Released with Work/Duty Limitations [employer]([facility] Therapy [facility]) [employer]) OUTPATIENT [id number] NATALIIA GUERIN 10/14 Released with Work/Duty Limitations [employer]([facility] Therapy Clinic) [employer]) OUTPATIENT [id number] MARCIAL, LUIS 10/16 Released with Work/Duty Limitations [employer]([facility] Therapy Clinic) [employer]) OUTPATIENT [id number] BRISA GONZALEZ 10/28 Released with Work/Duty Limitations [employer]([facility]ys[facility] Therapy Clinic) [employer]([facility]) OUTPATIENT [id number] SUMIT ROSEN 10/29 Released with Work/Duty Limitations [employer](P hys[facility] Therapy Clinic) [employer](Fli ght Surgeon Office) OUTPATIENT [id number] [facility] LEIGH TAYLOR 11/21 Released w/o Limitations [employer](F light Surgeon Office) [employer]([facility]) OUTPATIENT [id number] BRISA GONZALEZ 12/19 Released w/o Limitations [employer](P hysical Therapy Clinic) [employer]) OUTPATIENT [id number] MARCIAL, LUIS 12/29 Released w/o Limitations [employer](P [facility]ys[facility] Therapy Clinic) [employer]) OUTPATIENT [id number] MARCIAL, LUIS 01/02 Released w/o Limitations [employer](P [facility]ysical Therapy Clinic) [employer] [facility]) OUTPATIENT [id number] MARCIALBALDO MARCUSRO 01/05 Released w/o Limitations [employer](P [facility]ysical Therapy Clinic) [employer]([facility]) OUTPATIENT [id number] SUMIT ROSEN E 01/26 Released with Work/Duty Limitations [employer](P [facility]ysical Therapy Clinic) [employer]([facility]) OUTPATIENT [id number] MARCIAL, LUIS 02/13 Released with Work/Duty Limitations [employer](P [facility]ysical Therapy Clinic) [employer]([facility]) OUTPATIENT [id number] MARCIAL, LUIS 02/20 Released with Work/Duty Limitations [employer](P [facility]ysical Therapy Clinic) [employer]([facility]) OUTPATIENT [id number] NATALIIA GUERIN 03/10 Released with Work/Duty Limitations [employer](P [facility]ysical Therapy Clinic) [employer]([facility] Affiliate s) TELE CONSULT [id number] PRE DEPLOYM ENT CLEARAN CE APR 14 2011 DAYTON LORA 03/13 [employer](F [place] Affilia nikolay) [employer]([facility]) OUTPATIENT [id number] BRISA GONZALEZ 03/13 Released with Work/Duty Limitations [employer](P [facility]ysical Therapy Clinic) [employer]([facility]) OUTPATIENT [id number] MARCIAL, LUIS 03/16 Released with Work/Duty Limitations [employer](P [facility]ysical Therapy Clinic) [employer]([facility]) OUTPATIENT [id number] SUMIT ROSEN E 04/10 Released with Work/Duty Limitations [employer](P hysical Therapy Clinic) [employer](Fam Med Cl Tm B Non-Ad) OUTPATIENT [id number] F/U PROFILE / MED REFILL ROHIT CLARK 05/24 Released w/o Limitations [employer](F am Med Cl Tm B Non-Ad) [employer]([facility] Team D) OUTPATIENT [id number] chest cold, hurt finger SKYLAR ARIAS 07/22 Released w/o Limitations [employer](O del cid [facility] Team D) [facility](Fam Med Cl Tm B Non-Ad) TELE CONSULT [id number] Notes Entered by: RICHARD CRYSTAL 03 Aug 2011 0810 ------- ------- ------- ------- -- Physica l Therapy ROHIT Stewart 08/02 [employer](F am Med Cl Tm B Non-Ad) [facility] s) TELE CONSULT [id number] Notes Entered by: Da WORKMAN 01 Dec 2011 1158 ------- ------- ------- ------- -- ER VISIT F/U MISSY CORTEZ 11/30 [facility] Group([facility]) [facility] Med Cl Tm B Non-Ad) TELE CONSULT [id number] Notes Entered by: Da WORKMAN 01 Dec 2011 1204 ------- ------- ------- ------- -- L. FOOT PAIN REYNA MOREL 11/30 [facility] Group(F am Med Cl Tm B Non-Ad) [facility] s) OUTPATIENT [id number] left foot pain//c VENITA Kumar 12/02 Released w/o Limitations [employer]([facility]) [facility] Med Cl Tm B Non-Ad) TELE CONSULT [id number] Notes Entered by: REYNA MOREL 24 Dec 2011 1339 ------- ------- ------- ------- -- Con leave request REYNA MOREL 12/23 [employer](F am Med Cl Tm B Non-Ad) [facility] s) TELE CONSULT [id number] Notes Entered by: STACY LIN 29 Dec 2011 0941 ------- ------- ------- ------- -- CON LEAVE EXT MARIA TERESASHINECHAPITO Espinoza 12/28 [facility] [employer] [facility] [employer](Fam Med Cl Tm B Non-Ad) TELE CONSULT [id number] Notes Entered by: ROHIT CLARK 11 Jan 2012 1712 ------- ------- ------- ------- -- ROHIT Tan 01/10 [employer](F am Med Cl Tm B Non-Ad) [facility](Fam Med Cl Tm B Non-Ad) OUTPATIENT [id number] nausea diarrhe a some lighthe adednes s x 3 days// DEJA LEOS 04/29 Sick at Home/Quarter s [facility] Group(F am Med Cl Tm B Non-Ad) [facility] Surgeon [facility]) OUTPATIENT [id number] Notes Entered by: Da WORKMAN 02 May 2012 0935 ------- ------- ------- ------- -- f/u n/DELGADO Glover 05/02 Sick at Home/Quarter s [employer]([facility] Surgeon Office) [facility](Fam Med Cl Tm B Non-Ad) TELE CONSULT [id number] Notes Entered by: KAMERON GE 30 May 2012 1304 ------- ------- ------- ------- -- ACTIVE DUTY PT WITH RASH/ RIGHT ARM MISSY CORTEZ 05/30 [employer](F am Med Cl Tm B Non-Ad) [facility](Fam Med Cl Tm B Non-Ad) OUTPATIENT [id number] nurse clinic - rash// MISSY CORTEZ 05/30 Released w/o Limitations [employer](F am Med Cl Tm B Non-Ad) [facility] Surgeon Office) OUTPATIENT [id number] [facility] BEVERLY BATES 06/06 Released w/o Limitations [employer](F light Surgeon Office) [employer](Fam Med Cl Tm B Non-Ad) TELE CONSULT [id number] Notes Entered by: ALIYA MCKEON 04 Jul 2012 1012 ------- ------- ------- ------- -- Network Results -RHEUMA TOLOGY 05/28 MISSY CORTEZ 07/04 [employer](F am Med Cl Tm B Non-Ad) [employer]([facility]) OUTPATIENT [id number] PHA ZACHARY MCGEE 07/12 Released w/o Limitations [facility](P BUENO Cell) [employer](Fam Med Cl Tm B Non-Ad) OUTPATIENT [id number] MED CK, BP CK ROHIT CLARK 08/03 Released w/o Limitations [facility](F am Med Cl Tm B Non-Ad) [employer] OUTPATIENT [id number] Pre BREE VILLALOBOS 08/16 Released w/o Limitations [employer](D eployme Health Assess ents) [employer]([facility]) OUTPATIENT [id number] Notes Entered by: William ROSE 06 Sep 2012 1231 ------- ------- ------- ------- -- VAIBHAV STOKES 09/06 Released w/o Limitations [facility]) [employer](Fam Med Cl Tm B Non-Ad) TELE CONSULT [id number] Notes Entered by: NEELAM CONROY 14 Sep 2012 1318 ------- ------- ------- ------- -- PRE DEPLOY ENT ROHIT MARTINES 09/14 [employer](F am Med Cl Tm B Non-Ad) [facility] OUTPATIENT [id number] Theater Provider 04/27 Released w/o Limitations [facility] [employer](Fam Med Cl Tm B Non-Ad) TELE CONSULT [id number] Notes Entered by: KAMERON GE 04 Sep 2013 0837 ------- ------- ------- ------- -- ACTIVE DUTY/ VOMITIN G/ NAUSEA KEENAN SHERIFF 09/04 Referred for Appointment [facility](F am Med Cl Tm B Non-Ad) [facility](Fli ght Surgeon Office) OUTPATIENT [id number] [facility] Released w/o Limitations [facility](F light Surgeon Office) [facility] Group(Fam Med Cl Tm B Non-Ad) OUTPATIENT [id number] BP med refROHIT Bowers 09/06 Released w/o Limitations [facility](F am Med Cl Tm B Non-Ad) [facility] OUTPATIENT [id number] sleep LONG, DELVIDA L 09/06 Released w/o Limitations [facility](I ntegrat ed Behavio ral H[facility]th Cln) [facility](Dep [facility] Health Assessmen ts) OUTPATIENT [id number] DHA3, 40 min BREE HOLT 09/14 Released w/o Limitations [employer] [facility](D eployme nt Health Assessm ents) [facility]) OUTPATIENT [id number] PHA-Tristan TO BE COMPLET DIANA CALDWELL 09/14 Released w/o Limitations [facility](P BUENO Cell) [facility]) OUTPATIENT [id number] F/U sleep LONG, DELVIDA L 09/22 Released w/o Limitations [facility](I ntegrat ed Behavio ral Hlth Cln) [facility](Fam Med Cl Tm B Non-Ad) TELE CONSULT [id number] Notes Entered by: KAMERON GE 22 Sep 2013 1527 ------- ------- ------- ------- -- ACTIVE DUTY/ PULLED GROIN WHILE RUNNING KEENAN SHERIFF 09/22 Referred for Appointment [employer](F am Med Cl Tm B Non-Ad) [employer](Fam Med Cl Tm B Non-Ad) OUTPATIENT [id number] left groin pain ROHIT CLARK 09/25 Released with Work/Duty Limitations [employer](F am Med Cl Tm B Non-Ad) [employer]([facility]) OUTPATIENT [id number] F/U sleep TITO FORBES 09/28 Released w/o Limitations [employer](I ntegrat ed Behavio ral Hlth Cln) [employer](Fam Med Cl Tm B Non-Ad) TELE CONSULT [id number] Notes Entered by: KAMERON GE 20 Oct 2013 0946 ------- ------- ------- ------- -- ACTIVE DUTY/ POSSIBL E STREP THROAT KEENAN SHERIFF 10/20 Referred for Appointment [employer](F am Med Cl Tm B Non-Ad) [employer](Fam Med Cl Tm B Non-Ad) TELE CONSULT [id number] Notes Entered by: KEENAN SHERIFF 24 Oct 2013 1321 ------- ------- ------- ------- -- Lab results KEENAN SHERIFF 10/24 Referred for Appointment [employer](F am Med Cl Tm B Non-Ad) [employer](Fam Med Cl Tm B Non-Ad) TELE CONSULT [id number] Notes Entered by: Edgar PENA 01 Dec 2013 0743 ------- ------- ------- ------- -- ER Farhan/KEENAN GALLAGHER 12/01 Immediate Referral [employer](F am Med Cl Tm B Non-Ad) [employer](Fam Med Cl Tm B Non-Ad) OUTPATIENT [id number] f/u - left shoulde r ROHIT Talley 12/04 Sick at Home/Quarter s [employer](F am Med Cl Tm B Non-Ad) [employer](Fam Med Cl Tm B Non-Ad) OUTPATIENT [id number] F/U ROHIT Vidal 12/08 Released w/o Limitations [employer](F am Med Cl Tm B Non-Ad) [employer](Fam Med Cl Tm B Non-Ad) TELE CONSULT [id number] Notes Entered by: KAMERON GE 18 Jan 2014 1033 ------- ------- ------- ------- -- ACTIVE DUTY/ PROFILE ISSUE CHASCONCEPCION PITTMANEvangelina Mirza 01/18 Referred for Appointment [employer](F am Med Cl Tm B Non-Ad) [employer](Fam Med Cl Tm B Non-Ad) TELE CONSULT [id number] Notes Entered by: BROOKE HERNADEZ 09 Mar 2014 1523 ------- ------- ------- ------- -- Out Process bertram KWAN FLOR N 03/09 Released to [employer] [facility](F am Med Cl Tm B Non-Ad) [facility] [place] [address](AFN G 104 Med Sq-FM) OUTPATIENT [id number] Notes Entered by: Antoinette GUILLEN II 16 Jul 2016 0730 ------- ------- ------- ------- -- Short Non-Fly / Occupat [facility] MARTHA MONTERO 07/16 Released w/o Limitations [facility] [place] [address](A FNG 104 Med Sq-FM) [facility] [place] [address](AFN G 104 Med Sq-FM) OUTPATIENT [id number] Notes Entered by: MARCIA MEDEL 28 Nov 2016 0941 ------- ------- ------- ------- -- Med f/u 469 MARCIA MEDEL 11/28 Released with Work/Duty Limitations [facility] [place] [address](A FNG 104 Med Sq-FM) [facility] [place] [address](AFN G 104 Med Sq-FM) OUTPATIENT [id number] Notes Entered by: LY JACKSON 15 Jan 2017 1329 ------- ------- ------- ------- -- Provide r f/u JOHANNY BRADEN 01/15 Released w/o Limitations [facility] [place] [address](A FNG 104 Med Sq-FM) [facility] [place] [address](AFN G 104 Med Sq-FM) OUTPATIENT [id number] Notes Entered by: TREY BULLOCK 18 Mar 2017 1320 ------- ------- ------- ------- -- JOSE RAFAEL SHORE 03/18 Released with Work/Duty Limitations [facility] [place] [address](A FNG 104 Med Sq-FM) [facility] [place] [address](AFN G 104 Med Sq-FM) OUTPATIENT [id number] Notes Entered by: HOLLIE ALTMAN 09 Apr 2017 1726 ------- ------- ------- ------- -- MARTHA Esparza 04/09 Released w/o Limitations [facility] [place] [address](A FNG 104 Med Sq-FM) [facility] [place] [address](AFN G 104 Med Sq-FM) OUTPATIENT [id number] Notes Entered by: TREY BULLOCK 16 Apr 2017 1511 ------- ------- ------- ------- -- Luis Enrique mirza MD note review JOSE RAFAEL BULLOCK 04/16 Released with Work/Duty Limitations [facility] [place] [address](A FNG 104 Med Sq-FM) [facility] [place] [address](AFN G 104 Med Sq-FM) OUTPATIENT [id number] 3 Notes Entered by: JOHANNY BRADEN 25 Feb 2018 1317 ------- ------- ------- ------- -- right Juan M s tendoni tis, RTD JOHANNY BRADEN 02/25 [facility] Limitations [facility] [place] [address](A FNG 104 Med Sq-FM) [facility] [place] [address](AFN G 104 Med Sq-FM) OUTPATIENT [id number] 4 Notes Entered by: JOHANNY BRADEN 15 Apr 2018 1026 ------- ------- ------- ------- -- Occ/Ski n exam and PHAQ JOHANNY BRADEN 04/15 Released w/o Limitations [facility] [place] [address](A FNG 104 Med Sq-FM) [facility] [place] [address](AFN G 104 Med Sq-FM) OUTPATIENT [id number] Notes Entered by: MARICRUZ MONTERO 21 May 2018 1040 ------- ------- ------- ------- -- 469 f/u MARTHA MONTERO 05/21 Released w/o Limitations [facility] [place] [address](A FNG 104 Med Sq-FM) [facility] [place] [address](AFN G 104 Med Sq-FM) OUTPATIENT [id number] Notes Entered by: MARCIA MEDEL 17 Jun 2018 1443 ------- ------- ------- ------- -- right foot MARCIA MEDEL 06/17 Released with Work/Duty Limitations [facility] [place] [address](A FNG 104 Med Sq-FM) [facility] [place] [address](AFN G 104 Med Sq-FM) OUTPATIENT [id number] 5 Notes Entered by: MARCIA MEDEL 01 Oct 2018 0949 ------- ------- ------- ------- -- follow up MARCIA Ordaz 10/01 Released with [facility]/Duty [facility]itations [facility] [place] [place] [address](A FNG 104 Med Sq-FM) [facility], [place] [address](AFN G 104 Med Sq-FM) OUTPATIENT [id number] Notes Entered by: MARCIA MEDEL 08 Mar 2019 1449 ------- ------- ------- ------- -- R foot pain MARCIA MEDEL 03/08 Released with Work/Duty [facility]itations [facility] [place] [place] [address](A FNG 104 Med Sq-FM) [facility], [place] [address](AFN G 104 Med Sq-FM) TELE CONSULT [id number] Notes Entered by: MARCIA MEDEL 09 Mar 2019 1020 ------- ------- ------- ------- -- foot pain MARCIA MEDEL 03/09 [facility] [place] [place] [address](A FNG 104 Med Sq-FM) [facility], [place] [address](AFN G 104 Med Sq-FM) OUTPATIENT [id number] 7 Notes Entered by: SCOTT HINDS 09 Mar 2019 1439 ------- ------- ------- ------- -- Annual MSE / OH exams MARCIA MEDEL 03/09 Released with Work/Duty Limitations [facility] [place] [address](A FNG 104 Med Sq-FM) [facility] [place] [address](AFN G 104 Med Sq-FM) OUTPATIENT [id number] Notes Entered by: MARCIA MEDEL 21 Mar 2019 1022 ------- ------- ------- ------- -- PHAQ MARCIA MEDEL 03/21 Released with Work/Duty Limitations [facility] [place] [address](A FNG 104 Med Sq-FM) [facility], [place] [address](AFN G 104 Med Sq-FM) TELE CONSULT [id number] Notes Entered by: MARCIA MEDEL 14 Apr 2019 1039 ------- ------- ------- ------- -- Op note MARCIA MEDEL 04/14 [facility] [place] [address](A FNG 104 Med Sq-FM) [facility], [place] [address](AFN G 104 Med Sq-FM) TELE CONSULT [id number] Notes Entered by: MARCIA MEDEL 21 Apr 2019 1409 ------- ------- ------- ------- -- foot pain MARCIA MEDEL 04/20 [facility] [place] [place] [address](A FNG 104 Med Sq-FM) [facility], [place] [address](AFN G 104 Med Sq-FM) TELE CONSULT [id number] Notes Entered by: MARCIA MEDEL 26 Apr 2019 1249 ------- ------- ------- ------- -- R foot pain MARCIA MEDEL 04/25 [facility] [place] [address](A FNG 104 Med Sq-FM) [facility], [facility](AFN G 104 Med Sq-FM) TELE CONSULT [id number] Notes Entered by: MARCIA MEDEL 17 May 2019 1151 ------- ------- ------- ------- -- foot pain ANTOINE MEDELTIA DUMONT 05/16 [facility] [place] [address](A FNG 104 Med Sq-FM) [facility] [place] [address](AFN G 104 Med Sq-FM) TELE CONSULT [id number] Notes Entered by: TREY BULLOCK 08 Jun 2019 0912 ------- ------- ------- ------- -- note review JOSE RAFAEL BULLOCK 06/07 [facility] [place] [address](A FNG 104 Med Sq-FM) [facility] [place] [address](AFN G 104 Med Sq-FM) TELE CONSULT [id number] ANTOINE MEDELTIA DUMONT 08/14 [facility] [place] [address](A FNG 104 Med Sq-FM) [facility] [place] [address](AFN G 104 Med Sq-FM) TELE CONSULT [id number] Notes Entered by: MARCIA MEDEL 12 Oct 2019 1405 ------- ------- ------- ------- -- follow up GIANFRANCO MARCIA DUMONT 10/11 [facility] [place] [address](A FNG 104 Med Sq-FM) [facility] [place] [address](AFN G 104 Med Sq-FM) OUTPATIENT [id number] Notes Entered by: MARCIA MEDEL 24 Oct 2019 0916 ------- ------- ------- ------- -- Right foot pain MARCIA MEDEL 10/23 Released with Work/Duty Limitations [facility] [place] [address](A FNG 104 Med Sq-FM) [facility] [place] [address](AFN G 104 Med Sq-FM) TELE CONSULT [id number] Notes Entered by: MARCIA MEDEL 09 Jan 2020 1459 ------- ------- ------- ------- -- R foot pain MARCIA MEDEL 01/08 [facility] [place] [place] [address](A FNG 104 Med Sq-FM) [facility], [place] [address](AFN G 104 Med Sq-FM) TELE CONSULT [id number] Notes Entered by: MARCIA MEDEL 05 Mar 2020 0904 ------- ------- ------- ------- -- R foot pain MARCIA MEDEL 03/05 [facility] [place] [place] [address](A FNG 104 Med Sq-FM) [facility], [place] [address](AFN G 104 Med Sq-FM) OUTPATIENT [id number] MARCIA MEDEL 03/14 Released w/o Limitations [facility] [place] [address](A FNG 104 Med Sq-FM) [facility], [place] [address](AFN G 104 Med Sq-FM) OUTPATIENT [id number] Notes Entered by: MARCIA MEDEL 14 Mar 2020 1055 ------- ------- ------- ------- -- PHAQ MARCIA MEDEL 03/14 Released with Work/Duty Limitations [facility] [place] [address](A FNG 104 Med Sq-FM) [facility], [place] [address](AFN G 104 Med Sq-FM) TELE CONSULT [id number] Notes Entered by: MARCIA MEDEL 03 Apr 2020 1443 ------- ------- ------- ------- -- R foot pain MARCIA MEDEL 04/03 [facility] [place] [address](A FNG 104 Med Sq-FM) [facility], [place] [address](AFN G 104 Med Sq-FM) TELE CONSULT [id number] 3 Notes Entered by: MARCIA MEDEL 09 Apr 2020 1056 ------- ------- ------- ------- -- return MARCIA MEDEL 04/09 [facility] [place] [address](A FNG 104 Med Sq-FM) [facility], [place] [address](AFN G 104 Med Sq-FM) OUTPATIENT [id number] Notes Entered by: RUTH SHIRLEY 24 Apr 2020 1247 ------- ------- ------- ------- -- Audiogr am /Respir ator Fit Test /[place] Questio nnaire/ HIV/Vit als/ Provide r([place]-Ph ysica MARCIA MEDEL 04/24 Released w/o Limitations [facility], [place] [address](A FNG 104 Med Sq-FM) [facility], [place] [address](AFN G 104 Med Sq-FM) TELE CONSULT [id number] Notes Entered by: MARCIA MEDEL 11 Jul 2020 1554 ------- ------- ------- ------- -- R foot pain MARCIA MEDEL 07/11 [facility], [facility](A FNG 104 Med Sq-FM) [facility], [place] [address](AFN G 104 Med Sq-FM) OUTPATIENT [id number] Notes Entered by: MARCIA MEDEL 10 Sep 2020 0936 ------- ------- ------- ------- -- LUISITO MARCIA MEDEL 09/10 Sick at Home/Quarter s [facility] [place] [address](A FNG 104 Med Sq-FM) [facility] [place] [address](AFN G 104 Med Sq-FM) TELE CONSULT [id number] 3 MARCIA MEDELONE 12/10 [facility] [place] [address](A FNG 104 Med Sq-FM) [facility] [place] [address](AFN G 104 Med Sq-FM) TELE CONSULT [id number] 2 MARCIA MEDEL 01/01 [facility] [place] [address](A FNG 104 Med Sq-FM) [facility] [place] [address](AFN G 104 Med Sq-FM) TELE CONSULT [id number] 8 MARCIA MEDEL 01/07 [facility] [place] [address](A FNG 104 Med Sq-FM) [facility] [place] [address](AFN G 104 Med Sq-FM) TELE CONSULT [id number] MARCIA MEDEL 02/05 [facility] [place] [address](A FNG 104 Med Sq-FM) [facility] [place] [address](AFN G 104 Med Sq-FM) OUTPATIENT [id number] Notes Entered by: MARCIA MEDEL JULIA 25 Feb 2021 1434 ------- ------- ------- ------- -- JORGE LUIS MARCIA MEDEL JULIA 02/25 Released with Work/Duty Limitations [facility] [place] [address](A FNG 104 Med Sq-FM) [facility] [place] [address](AFN G 104 Med Sq-FM) OUTPATIENT [id number] Notes Entered by: SARAH MCPHERSON 24 Apr 2021 1402 ------- ------- ------- ------- -- [facility] RAFAEL Baig 04/24 Released with Work/Duty Limitations [facility] [place] [address](A FNG 104 Med Sq-FM) [facility] [place] [address](AFN G 104 Med Sq-FM) TELE CONSULT [id number] 4 MARCIA MEDEL JULIA 09/24 [facility] [place] [address](A FNG 104 Med Sq-FM) [facility] [place] [address](AFN G 104 Med Sq-FM) TELE CONSULT [id number] 2 MARCIA MEDEL JULIA 10/22 [facility] [place] [address](A FNG 104 Med Sq-FM) [facility] [place] [address](AFN G 104 Med Sq-FM) TELE CONSULT [id number] 3 MARCIA MEDEL JULIA 01/15 [place] [address](A FNG 104 Med Sq-FM) [facility] [place] [address](AFN G 104 Med Sq-FM) TELE CONSULT [id number] 5 MARCIA MEDEL JULIA 03/13 [facility] [place] [address](A FNG 104 Med Sq-FM) [facility] [place] [address](AFN G 104 Med Sq-FM) OUTPATIENT [id number] 5 Notes Entered by: MARCIA MEDEL 17 Mar 2022 1610 ------- ------- ------- ------- -- JORGE LUIS MEDEL MARCIA DUMONT 03/17 Released with Work/Duty Limitations [facility] [place] [address](A FNG 104 Med Sq-FM) [facility] [place] [address](AFN G 104 Med Sq-FM) OUTPATIENT [id number] Notes Entered by: MALVIN HARTLEY 16 Apr 2022 1641 ------- ------- ------- ------- -- JORGE LUIS benz KEKE SNYDER 04/16 Released w/o Limitations [facility] [place] [address](A FNG 104 Med -) [facility] Outpatient Encounter [id number] 04/08 [facility] [id number] MDG Between Visit [id number] 04/20 Discharge Disposition: Home or Self Care [id number] MDG [facility] Outpatient Encounter [id number] 09/04 [facility] Outpatient Encounter [id number] 03/02 [facility] OFFICE O/P NEW MOD 45 MIN [id number] Diagnos is: ICD-10- CM I10 Essenti al (primar y) hyperte GERARD Fortune 03/02 [facility] Outpatient Encounter [id number] 03/02 [facility] CASE MANAGEMENT [id number] Diagnos is: ICD-10- CM Z71.89 Other specifi ed alcoholic counselor JOY Contreras 03/03 [facility] Outpatient Encounter [id number] 03/07 [facility] Out[facility] Encounter [id number] 03/10 [facility] Outpatient Encounter [id number] 03/10 [facility] Outpatient Encounter [id number] 03/13 [facility] CASE MANAGEMENT [id number] Diagnos is: ICD-10- CM Z71.89 Other specifi ed alcoholic counselor JOY Contreras 03/20 [facility] Procedures Combined list of: 1) Procedures from Department of Veterans Affairs facilities going back up to thelast 18 months, not all [place] non-surgical procedures are included; 2) All procedures [...] COST TO PHYSICIAN OR OTHER QUALIFIED HEALTH INTERNET MARKETER 2003 DoD SCREENING TEST, PURE TONE, AIR ONLY 2013 DoD NEUROPSYCHOLOGICAL TESTING (EG, [place] CARD SORTING TEST), ADMINISTERED BY A COMPUTER, WITH QUALIFIED HEALTH INTERNET MARKETER INTERPRETATION AND REPORT 2012 DoD PURE TONE [...] PURE TONE AUDIOMETRY (THRESHOLD); AIR ONLY 2006 [facility] THERAPEUTIC PROCEDURE, 1 OR MORE AREAS, EACH 15 MINUTES; THERAPEUTIC EXERCISES TO DEVELOP STRENGTH AND ENDURANCE, RANGE OF MOTION AND FLEXIBILITY 2005 [facility] THERAPEUTIC PROCEDURE, 1 OR MORE AREAS, EACH 15 MINUTES; THERAPEUTIC EXERCISES TO DEVELOP STRENGTH AND ENDURANCE, RANGE OF MOTION AND FLEXIBILITY 2005 [facility] VIS FUNCT SCREEN,AUTOMAT/SEMI- AUTOMAT BILAT QUANT DETERM VISUAL ACUITY,OCULAR ALIGN,COLOR VISION,PSEUDOISOCHRO MAT PLATES,& FIELD VIS (MAY INC ALL/SOME SCRN DETERM FOR CONTRAST SENSITIV,VIS UND GLARE) 2005 [facility] SCREENING TEST OF VISUAL ACUITY, QUANTITATIVE, BILATERAL 2005 [facility] INFLUENZA VIRUS VACCINE, TRIVALENT, LIVE (LAIV3), FOR INTRANASAL USE 2004 [facility] SCREENING TEST OF VISUAL ACUITY, QUANTITATIVE, BILATERAL 2003 [facility] Spirometry Spirometry 77560 2013 SARAH JONES [facility] Audiogram (Screening) Audiogram (Screening) 30170 2013 SARAH JONES [facility] Psychometric Neuropsych Testing Battery Admin By Computer Psychometric Neuropsych Testing Battery Admin By Computer 55943 2012 ABHISHEK MAS [facility] Threshold Audiogram (Pure Tone) Threshold Audiogram (Pure Tone) 39650 2012 BEVERLY BATES [facility] Pulmonary Function Tests Pulmonary Function Tests 40037 2012 BEVERLY BATES IV Infusion For Hydration Each Additional Hour IV Infusion For Hydration Each Additional Hour 20778 2012 DEJA LEOS IV Infusion For Hydration 31 Minutes To 1 Hour IV Infusion For Hydration 31 Minutes To 1 Hour 35804 2012 DEJA LEOS Intravenous Catheter Placement Intravenous Catheter Placement 13625 2012 DEJA LEOS [facility] Physical Therapy Service Re-Evaluation Physical Therapy Service Re-Evaluation 15730 2011 SUMIT ROSEN [facility] Modalities Heat Hot Packs Modalities Heat Hot Packs 95033 2011 MARCIALLUIS MARCUS [facility] Physical Therapy Neuromuscular Re-education Physical Therapy Neuromuscular Re-education 04683 2011 MARCIALLUIS MARCUS Physical Therapy: ___ Se ion Segments, 15 Minutes Each Physical Therapy: ___ Session Segments, 15 Minutes Each 30345 2011 MARCIAL, LUIS DoD Modalities Heat Hot Packs Modalities Heat Hot Packs 94232 2011 BRISA GONZALEZ [facility] Physical Therapy Neuromuscular Re-education Physical Therapy Neuromuscular Re-education 35927 2011 BRISA GONZALEZ [facility] Physical Therapy: ___ Se ion Segments, 15 Minutes Each Physical Therapy: ___ Session Segments, 15 Minutes Each 99601 2011 BRISA GONZALEZ DoD Modalities Heat Hot Packs Modalities Heat Hot Packs 02752 2011 NATALIIA GUERIN Physical Therapy Neuromuscular Re-education Physical Therapy Neuromuscular Re-education 02577 2011 NATALIIA GUERIN Physical Therapy: ___ Se ion Segments, 15 Minutes Each Physical Therapy: ___ Session Segments, 15 Minutes Each 93442 2011 NATALIIA GUERIN Modalities Heat Hot Packs Modalities Heat Hot Packs 61348 2011 MARCIAL, LUIS DoD Physical Therapy: ___ Se ion Segments, 15 Minutes Each Physical Therapy: ___ Session Segments, 15 Minutes Each 19166 2011 MARCIAL, LUIS DoD Physical Therapy Neuromuscular Re-education Physical Therapy Neuromuscular Re-education 90514 2011 MARCIAL, LUIS DoD Modalities Heat Hot Packs Modalities Heat Hot Packs 32295 2010 MARCIAL, LUIS DoD Physical Therapy Neuromuscular Re-education Physical Therapy Neuromuscular Re-education 66678 2010 MARCIAL, LUIS DoD Physical Therapy: ___ Se ion Segments, 15 Minutes Each Physical Therapy: ___ Session Segments, 15 Minutes Each 54038 2010 MARCIAL, LUIS DoD Physical Therapy Service Re-Evaluation Physical Therapy Service Re-Evaluation 63867 2010 SUMIT ROSEN E DoD Physical Therapy Neuromuscular Re-education Physical Therapy Neuromuscular Re-education 75489 2010 MARCIAL, LUIS DoD Modalities Heat Hot Packs Modalities Heat Hot Packs 51655 2010 MARCIAL, LUIS DoD Physical Therapy: ___ Se ion Segments, 15 Minutes Each Physical Therapy: ___ Session Segments, 15 Minutes Each 63423 2010 MARCIAL, LUIS DoD Modalities Heat Hot Packs Modalities Heat Hot Packs 78871 2010 MARCIAL, LUIS DoD Physical Therapy: ___ Se ion Segments, 15 Minutes Each Physical Therapy: ___ Session Segments, 15 Minutes Each 42231 2010 MARCIAL, LUIS DoD Physical Therapy Neuromuscular Re-education Physical Therapy Neuromuscular Re-education 60722 2010 MARCIAL, LUIS DoD Physical Therapy Neuromuscular Re-education Physical Therapy Neuromuscular Re-education 68753 2010 MARCIAL, LUIS DoD Modalities Heat Hot Packs Modalities Heat Hot Packs 05734 2010 MARCIAL, LUIS DoD Physical Therapy: ___ Se ion Segments, 15 Minutes Each Physical Therapy: ___ Session Segments, 15 Minutes Each 02221 2010 MARCIAL, LUIS DoD Modalities Heat Hot Packs Modalities Heat Hot Packs 04282 2010 BRISA GONZALEZ Physical Therapy Neuromuscular Re-education Physical Therapy Neuromuscular Re-education 56734 2010 BRISA GONZALEZ Physical Therapy: ___ Se ion Segments, 15 Minutes Each Physical Therapy: ___ Session Segments, 15 Minutes Each 20641 2010 BRISA GONZALEZ Pulmonary Function Tests Pulmonary Function Tests 74160 2010 LEIGH TAYLOR [facility] Physical Therapy Service Re-Evaluation Physical Therapy Service Re-Evaluation 30704 2010 SILAS, SUMIT E DoD Modalities Heat Hot Packs Modalities Heat Hot Packs 55792 2010 BRISA GONZALEZ DoD Modalities Ultrasound Modalities Ultrasound 35693 2010 BRISA GONZALEZ DoD A isted Exercises For ROM Assisted Exercises For ROM 06619 2010 BRISA GONZALEZ DoD Modalities Heat Hot Packs Modalities Heat Hot Packs 37963 2010 MARCIAL, LUIS DoD Modalities Ultrasound Modalities Ultrasound 50769 2010 MARCIAL, LUIS DoD A isted Exercises For ROM Assisted Exercises For ROM 52333 2010 MARCIAL, LUIS DoD Modalities Ultrasound Modalities Ultrasound 76577 2010 NATALIIA GUERIN A DoD Modalities Heat Hot Packs Modalities Heat Hot Packs 72312 2010 NATALIIA GUERIN A isted Exercises For [place] 21503 2010 NATALIIA GUERIN DoD Modalities Heat Hot Packs Modalities Heat Hot Packs 58018 2010 MARCIAL, LUIS DoD Modalities Ultrasound Modalities Ultrasound 20344 2010 MARCIAL, LUIS DoD A isted Exercises For ROM Assisted Exercises For ROM 52351 2010 MARCIAL, LUIS DoD Physical Therapy Service Evaluation Physical Therapy Service Evaluation 10407 2010 SUMIT ROSEN [place] Pulmonary Function Tests Pulmonary Function Tests 35618 2009 STERLING GEE Threshold Audiogram (Pure Tone) Threshold Audiogram (Pure Tone) 95599 2009 STERLING GEE DoD Audiogram (Screening) Audiogram (Screening) 15828 2009 RAMILA DAMIAN Non-Physician Phone Call To Patient/Provider Brief (5-10min) Non-Physician Phone Call To Patient/Provider Brief (5-10min) 19974 2009 JONEL BUSBY Culture, bacterial, urine; quantitative, sensitivity study 2008 BRISA AHUJA strep swab done [facility] Threshold Audiogram (Pure Tone) Threshold Audiogram (Pure Tone) 44099 2008 JUANJO CLEARY Threshold Audiogram (Pure Tone) Threshold Audiogram (Pure Tone) 30657 2007 MARYANNE SANTOS Services Provided On An Emergency Basis In The Office 2006 JAIME LAIRD Services Provided On An Emergency Basis In The Office 2006 LATIA CARVAJAL Ophthalmological New Patient Start Intermediate Level Care Ophthalmological New Patient Start Intermediate Level Care 92928 2006 LATIA CARVAJAL Threshold Audiogram (Pure Tone) Threshold Audiogram (Pure Tone) 81428 2006 MARYANNE SANTOS Threshold Audiogram (Pure Tone) Threshold Audiogram (Pure Tone) 67375 KEKE SNYDER No data available for this section Ambulato ry Pharmacy Social History Combined list of available smoking, tobacco, and other social history from 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 Social History Type Response Date Comment Sourc e Tobacco smoking status NHIS [place]-TOBACCO USE FORMER CIGARETTES 03/02/2024 [facility] History of tobacco use VA-TOBACCO NEVER USED OTHER TYPE 03/02/2024 [facility] This section is an empty social history section. [facility] Assessment and Plan Combined list of future [...] future care activities from Department of Veterans [facility] facilities. Additional future care activities may be listed in the Assessment and Plan section. Date/Time Care Activity Care Activity Detail Facili ty 03/27/2024 AMBULATORY - MEDICINE [facility] 05/29/2024 AMBULATORY - MEDICINE AM[facility]ULAT[facility] 03/16/2024 Consult Order [facility] Cons Tower [employer] [facility] Functional Status Combined list of recent functional and cognitive assessments recorded at Department of Defense and [facility] ([place] Functional [place] Measurement (FIM) Scale: 1 = Total Assistance (Subject = 0% +), 2 = Maximal Assistance (Subject = 25% +), 3 = Moderate Assistance (Subject = 50% +), 4 = Minimal Assistance (Subject = 75% +), 5 = Supervision, 6 = Modified [place] (Device), 7 = Complete [place] (Timely, Safely). Assessment Date/Time Source Assessment Type Assessment Skill Assessment Score Assessment Details No data available for this section
--- OUTSIDE RECORDS SUMMARY | 2024-03-27 14:34 | XMS_ITS | Clinical Summary ---
Author Organization [facility] Facility Address [address] [place] [address] Care Team Providers Care Progressive Care Nurse Name Role Phone Unavailable Primary Care Provider [...]
== END 2024-03-27 13:29 | disposition home or self-care (01) ==
LOC: HO.HOSX 13:28
DX: S52.041A Displaced fracture of coronoid process of right ulna, initial encounter for closed fracture (principal); M77.11 Lateral epicondylitis, right elbow
CPT/HCPCS: 73080; 99202

== ENCOUNTER 2024-03-27 14:28 | Outpatient (AMB) | payer OTHER, SELFPAY ==
--- NOTE | 2024-03-27 14:29 | A.OFFVIS_ITS ---
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 Patient reports pain began 4 months ago. He was told t here is a bone fragment floating around and that this might be the cause of his pain.Denies prior injuries right elbow or hand. Reports right RTC repair 2022. 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 Patient reports pain began 4 months ago. He was told there is a bone fragment floating around and that this might be the cause of his pain.Denies prior injuries right elbow or hand. Reports right RTC repair 2022. [facility] Medical History Tubular adenoma of colon GERD (gastroesophageal reflux disease) Anxiety with depression PTSD (post-traumatic stress disorder) Lumbar stenosis HTN (hypertension) Sleep apnea Hypogonadism in male BPH (benign prostatic hyperplasia) Renal calculi CKD (chronic kidney disease) Right foot pain Surgical History Status post right foot surgery Family History Father No problems noted. Mother No problems noted. 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 Cognitive needs: No Hearing needs: No Vision needs: No Review of Systems Const All systems reviewed & are unremarkable except as noted in HPI and below Physical Exam Vital Signs: BMI result Body Mass Index 33.0 Extrem Other: Patient's right elbow normal to inspection No erythema, ecchymosis, edema noted No lacerations, abrasions, open areas No evidence of infection Patient reports mild tenderness to palpation of the lateral epicondyle of the right elbow No tenderness to palpation of the medial epicondyle, radial head, olecranon process, or elsewhere on the right elbow Patient is able to flex and extend the right elbow fully and without pain or difficulty Patient is able to pronate and supinate the right wrist fully and without pain or difficulty Positive Cozen's test Negative reverse Cozen's test Distal sensation intact Capillary refill brisk Results Reviewed Results Reviewed: X-rays obtained in the office today and independently reviewed by me, Harshal Coronel PA-C, demonstrate nondisplaced small avulsion fracture of the coronoid process of the right elbow in similar clinical alignment to previous x-rays. Assessment & Plan Assessment & Plan (1) Fracture of coronoid process of ulna, right, closed: Code(s): S52.041A - Displaced fracture of coronoid process of right ulna, initial encounter for closed fracture Category: Medical (2) Lateral epicondylitis, right elbow: Code(s): M77.11 - Lateral epicondylitis, right elbow Category: Medical Plan 1. Coronoid process avulsion fracture right elbow Date of injury unknown 2. Lateral epicondylitis of right elbow The patient states that this injury could have occurred at any time over the last few years, but he did notice an acute worsening of his pain approximately 4 months ago Patient does state that he has been in communication with the [facility] and they have discussed potential surgical intervention, but he wanted to get a 2nd opinion today to see if he could be treated nonoperatively Patient was educated on the typical treatment course for these fractures as well as for lateral epicondylitis Patient states he is wholly uninterested in any occupational therapy at this time, as he has tried physical therapy in the past, he did not feel it helped, and he feels that it was ?useless? for the issue that he has Patient also declines injection for right lateral epicondylitis Patient was educated that he should keep a 5 lb weight limit in the right hand as well as avoiding any of the extremes of range of motion of the right elbow until follow-up to allow fracture healing Patient was amenable to this plan Patient will follow-up in 3 weeks with repeat x-rays for reassessment, sooner with any acute concerns Orders: Orders XR elbow RT min 3V Today M25.521 - Pain in right elbow Coding Level of Care Code New Pt Level 3 (05118) Diagnoses Fracture of coronoid process of ulna, right, closed S52.041A Lateral epicondylitis, right elbow M77.11
[2024-03-27 14:30] VITALS: BMI 33.0
--- OUTSIDE RECORDS SUMMARY | 2024-03-27 15:43 | XMS_ITS | Encounter Summary ---
Author Organization [facility] Address [address] [place] [address] Care Team Providers Care Meat Boner Name Role Phone Elmo Moreno NP Primary Care Provider + [phone] Reason for Referral * Imaging (Routine) - Authorized Specialty Diagnoses / Procedures Referred By Contac t Referred To Contact Radiology Diagnoses Low back pain radiating to right leg Procedures MR Lumbar Spine wo Contrast Mally John PA [address] Phone: tel: fax: Radiology Department [address] Phone: tel: fax: Referral ID Status Reason Start Date Expiration Date V isits Requested Visits Authorized [id number] Authorized 03/20/2024 03/20/2025 1 1 Reason for Visit * Imaging (Routine) - Authorized Specialty Diagnoses / Procedures Referred By Contac t Referred To Contact Radiology Diagnoses Low back pain radiating to right leg Procedures MR Lumbar Spine wo Contrast Mally John PA [address] [place] [address], [address] Phone: tel: fax: Radiology Department - [address] Phone: tel: fax: Referral ID Status Reason Start Date Expiration Date V isits Requested Visits Authorized [id number] Authorized 03/20/2024 03/20/2025 1 1 Encounter Details Date Type Department Care Team (Latest Contact Info) Description 03/27/2024 11:30 AM EST Hospital Encounter Radiology Department - [address] [phone] Low back pain radiating to right leg [...] Lumbago documented in this encounter Care Teams Meat Boner Relationship Specialty Start Date End Date Elmo Moreno NP [address] [place], [place] PCP - General 05/15/22 documented as of this encounter
--- OUTSIDE RECORDS SUMMARY | 2024-03-27 15:44 | XMS_ITS | Encounter Summary ---
Author Name [facility] Organization [facility] Address [address] [place] [address] Care Team Providers Care Family Physician Name Role Phone ELENA RODRIGUEZ Primary Care Provider Unavail able Insurance Providers: All historical and current Section Date Range: From patient's date of to the date document was created. This section includes the names of all active insurance providers for the patient. Insurance Provider Type of Coverage Plan Name Start of Policy Coverage End of Policy Coverage Group Number Member ID Insurance Provider's Telephone Number Policy Mendes's Name Patient's Relationship to Policy Mendes [employer] Feb 15, 2022 THPRX [id number] USMANGUY NICHOLS PATIENT [employer] HARVEY Gutierrez June 22, 2023 [id number] USMANGUY GARCIAM PATIENT Selected Encounter This section includes the information on record at [place] for the Encounter. Date/Time Encounter Type Encounter Description Reason Provider Source Mar 27, 2024 01:54 PM CASE MANAGEMENT ADMIN PAT ACTIVTIES (MASNONCT) ICD-10-CM Z71.89 Other specified counseling JOY ISLAS [facility] Encounter Template Text not used by [place] Assessments - Encounter Diagnoses This section includes the primary and secondary diagnoses documented for the Encounter. Date/Time Primary/Secondary Diagnosis Diagnosis Name Provider Source Mar 27, 2024 01:54 PM PRIMARY Other specified counseling JOY ISLAS [facility] Plan of Treatment: Future Appointments (+ 6 months) and Future Tests (+/- 45 days) The Plan of Treatment section includes future care activities for the patient from all [place] treatmentfacilities. This section includes future appointments and future orders which are active, pending or scheduled. Future Appointments This section includes appointments that were scheduled to occur 6 months from the date of the Encounter, up to a maximum of 20 appointments. The data comes from all [place] treatment [facility]. Appointment Date/Time Appointment Type Appointme nt Facility Name May 29, 2024 10:30 AM AMBULATORY - MEDICINE [facility] Active, Pending, and Scheduled Orders This section includes a listing of several types of active, pending, and scheduled orders, including clinic medications orders, diagnostic test orders, procedure orders and consult orders; where the start date of the order is 45 days before the date of the Encounter or 45 days after the date of theEncounter. The data comes from all [facility]. Test Date/Time Test Type Test Details Facility Name Mar 16, 2024 10:01 AM Consult Order [facility] Cons [employer] [facility] Social History: Smoking Status (Most current) and Tobacco Use (All prior to encounter date) This section includes the most current, and the historical, smoking and tobacco- related health factors from the [place] facility where the Encounter took place. Current Smoking Status This section includes the most current smoking, or tobacco-related health factor, from the [place] facility where the Encounter took place. Date/Time Current Smoking Status Comment Facil ity Mar 02, 2024 03:30 PM VA-TOBACCO USE FOR SUNG CIGARETTES [facility] Tobacco Use History This section includes a history of the smoking, or tobacco-related health factors, that were collected on or before the date of the Encounter. The data comes from the [place] facility where the Encounter took place. Date/Time Smoking Status/Tobacco Use Comment F acility Mar 02, 2024 03:30 PM VA-TOBACCO USE FOR SUNG CIGARETTES [facility]
--- OUTSIDE RECORDS SUMMARY | 2024-03-27 15:44 | XMS_ITS | Clinical Summary ---
Author Organization [address] [facility] Address [address] [place] [address] Phone Care Team Providers Care Teaching Specialists Name Role Phone Elmo Moreno NP Primary Care Provider Allergies No known active allergies Medications albuterol HFA (PROAIR HFA ; PROVENTIL HFA ; VENTOLIN HFA) 90 mcg/actuation inhaler INHALE 2 PUFFS BY MOUTH EVERY 6 HOURS NEEDED 022 Active syringe with needle, safety 1 mL 25 gauge x 5/8 syringe BD Disp [place] 25G X 5/8 Misc USE DIRECTED WEEKLY [...] AM EST Hospital Encounter Radiology Department - [address] [address] Low back pain radiating to right leg 03/20/2024 10:15 AM EST Office Visit [facility] [place] [address] [place] [address] Mally John PA Sacroiliitis (CMS/HCC) (Primary Dx); Low back pain radiating to right leg 03/13/2024 Telephone [facility] [place] [facility] [address] [place] [address] Allison Euceda [place] from Last [...] topic Insurance [employer]ILY [employer] PLAN Care Teams Teaching Specialists Relationship Specialty Start Date End Date Elmo Moreno NP [address] [facility] [place] PCP - General 05/15/22
--- OUTSIDE RECORDS SUMMARY | 2024-03-27 15:44 | XMS_ITS | Encounter Summary ---
Author Organization [facility] Address [address] [place] [address] Care Team Providers Care Washhouse Hand Name Role Phone Sterling Moreno NP Primary Care Provider + [phone] Reason for Referral * Imaging (Routine) - Authorized Specialty Diagnoses / Procedures Referred By Contac t Referred To Contact Radiology Diagnoses Low back pain radiating to right leg Procedures MR Lumbar Spine wo Contrast Mally John PA [address] [facility], [address] [address] Phone: tel: fax: Radiology Department [address] Phone: tel: fax: Referral ID Status Reason Start Date Expiration Date V isits Requested Visits Authorized [id number] Authorized 03/20/2024 03/20/2025 1 1 * Imaging (Routine) - Authorized Specialty Diagnoses / Procedures Referred By Contac t Referred To Contact Radiology Diagnoses Sacroiliitis (CMS/HCC) Procedures IR Inj Anes/Steroid Nerve Sacroiliac Joint Right Mally John PA [address] [facility], [address] [place] [address] Phone: tel: fax: [facility] Interventional Radiology [address] [place] [address] Phone: tel: Referral ID Status Reason Start Date Expiration Date V isits Requested Visits Authorized [id number] Authorized 03/20/2024 03/20/2025 1 1 Reason for Visit * Reason Comments Sacral Iliac Joint Pain Eval for possibl e repeat injection Encounter Details Date Type Department Care Team (Late st Contact Info) Description 03/20/2024 10:15 AM EST Office Visit [place] [place] [facility] [address] [place] [address] Mally John PA [address] [facility], [address] [place] [address] Sacroiliitis (CMS/HCC) (Primary Dx); Low back pain [...] gauge x 5/8 syringe BD Disp [place] 25G X 5/8 Misc
USE DIRECTED WEEKLY [...] PM EST [facility] [place] documented in this encounter Plan of Treatment [...] 03/20/2024 added in this encounter Care Teams Washhouse Hand Relationship Specialty Start Date End Date Sterling Moreno NP [address] [facility] [place], [place] PCP - General 05/15/22 documented as of this encounter
--- OUTSIDE RECORDS SUMMARY | 2024-03-27 15:44 | XMS_ITS | Clinical Summary ---
Author Organization [facility] Address [address] [place] [address] Care Team Providers Care Internet Project Manager Name Role Phone Elmo Moreno Primary Care Provider [phone] Allergies No known active allergies Medications Medication [...] Advance Directives For more information, please contact: [phone] Latest Code Status on File Code Status Date Activated Date Inactivated Comments Full Code 03/18/2020 12:11 PM 03/18/2020 9:28 PM This c ode status was ascertained in the following way: discussion with patient . Care Teams Internet Project Manager Relationship Specialty Start Date End Date Elmo Moreno: [id number] [address] [facility] [place] [address] PCP - General Family Medicine 03/07/20
--- OUTSIDE RECORDS SUMMARY | 2024-03-27 15:44 | XMS_ITS | Encounter Summary ---
Author Organization [facility] Address [address] [place] [address] Care Team Providers Care Concrete Products Dispatcher Name Role Phone Elmo Moreno NP Primary Care Provider Encounter Details Date Type Department Care Team (Late st Contact Info) Description 03/13/[address] [place] [address] Allison Euceda [place] Social History [...] on filedocumented in this encounter Care Teams Concrete Products Dispatcher Relationship Specialty Start Date End Date Elmo Moreno NP [address] [facility] [place] PCP - General 05/15/22 documented as of this encounter
--- OUTSIDE RECORDS SUMMARY | 2024-03-27 15:45 | XMS_ITS | Clinical Summary ---
Author Organization [facility] Facility Address [address] [place] [address] Care Team Providers Care Marketing Research Intern Name Role Phone Unavailable Primary Care Provider [...]
--- OUTSIDE RECORDS SUMMARY | 2024-03-27 15:45 | XMS_ITS | Continuity of Care Document ---
Author Name [facility] Organization [facility] Care Team Providers Care Head Doffer Name Role Phone [facility] Unavailable Unavailable Problems Combined list of problems from 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 It does not include entries that were removed or entered in error. Problem Status Onset Date Problem Type Date of Resolution Comments Source Other hammer toe(s) (acquired), right foot Active 1898 Condition DoD Anxiety (SCT [id number]) [facility] Condition [facility] Chronic back pain [facility] Chronic kidney disease stage 3A Active Condition Mar 03 Entered By: EDITH ALEJANDRO Comment: Stage 3a chronic kidney disease 03/02/2021 [facility] Contact dermatitis Active Condition [facility] Degenerative Joint Disease of Shoulder Region (SCT [id number]) Active Condition [facility] Dermatophytosis Active Condition Mar 03, 2024 Entered By: EDITH ALEJANDRO Comment: Dermatophytosis tinea cruris [facility] Erectile Dysfunction (SCT [id number]) Active Condition [facility] GERD - Gastro-Esophageal Reflux Disease (SCT [id number]) Active Condition [facility] Gout Active Condition [facility] Hammer toe Active Condition Mar 03 Entered By: EDITH ALEJANDRO Comment: hammer toe(s) (acquired), right foot [facility] History of nicotine dependence Active Condition [facility] HTN - Hypertension (SCT [id number]) Active Condition [facility] Pain in Lumbar Spine (SCT [id number]) Active Condition [facility] [...] ICD-10-CM Z71.89 Other specified counseling Active Diagnosis [facility] Diagnosis: ICD-10-CM I10 Essential (primary) hypertension Active Diagnosis [facility] Medications Combined list of outpatient medications [...] ORAL, IVAX PHARMACEUT, 100 ea. BOTTLE Active [id number] 2023 90 Pharmac y Data Transac tion Service Facilit y hydroCHLORO thiazide 12.5 mg oral tablet hydroCHL OROthiaz magda 12.5 mg oral tablet Start Date: 10/08/20 Status: Ordered Ordered No Facilit y Access HYDROCHLORO THIAZIDE 25MG/LOSART AN POTASSIUM 100MG TAB TAKE ONE TABLET BY MOUTH ORAL ACTIVE GERARD RODRIGUEZ 2024 [facility] ibuprofen 600 mg oral tablet ibuprofe n 600 mg oral tablet Start Date: 10/29/20 Status: Ordered Ordered No Facilit y Access lidocaine 5% topical film lidocain e 5% topical film Start Date: 05/27/20 Status: Ordered Ordered No Facilit y Access LORAZEPAM (lorazepam) , 0.5 MG, TABLET, ORAL, AUROBINDO PHARM, 500 ea. BOTTLE Active [id number] 2023 30 Pharmac y Data Transac tion Service Facilit y LORAZEPAM (lorazepam) , 0.5 MG, TABLET, ORAL, AUROBINDO PHARM, 500 ea. BOTTLE Active [id number] 2023 30 Pharmac y Data Transac tion Service Facilit y LORAZEPAM (lorazepam) , 0.5 MG, TABLET, ORAL, TEVA [place], 500 ea. BOTTLE Active [id number] 2023 30 Pharmac y Data Transac tion Service Facilit y LORAZEPAM 0.5MG TAB TAKE ONE TABLET BY MOUTH ORAL ACTIVE MICHAEL GERARD 2024 [facility] LOSARTAN-HY DROCHLOROTH IAZIDE (LOSARTAN/H YDROCHLOROT HIAZIDE), 100MG-25MG, TABLET, ORAL, AUROBINDO PHARM, 90 ea. BOTTLE Active [id number] 2023 90 Pharmac y Data Transac tion Service Facilit y LOSARTAN-HY DROCHLOROTH IAZIDE (LOSARTAN/H YDROCHLOROT HIAZIDE), 100MG-25MG, TABLET, ORAL, AUROBINDO PHARM, 90 ea. BOTTLE Active [id number] 2023 90 Pharmac y Data Transac [...] MISCELL, NAVEED JAIME, 100 ea. RODRIGUEZ cárdenas [id number] : 2023 0 Pharmac y Data Transac tion Service Facilit y meloxicam 15 mg oral tablet meloxica m 15 mg oral tablet Start Date: 04/17/21 Status: Ordered Ordered No Facilit y Access NAPROXEN (NAPROXEN), 500MG, TABLET, ORAL, GLENMARK PHARMA, 500 ea. BOTTLE Active [id number] 2023 60 Pharmac y Data Transac tion Service Facilit y NAPROXEN (NAPROXEN), 500MG, TABLET, ORAL, GLENMARK PHARMA, 500 ea. BOTTLE Active [id number] 2023 60 Pharmac y Data Transac tion Service Facilit y NAPROXEN 500MG TAB TAKE ONE TABLET BY MOUTH ORAL ACTIVE MICHAEL GERARD 2024 [facility] OMEPRAZOLE (omeprazole ), 20 MG, CAPSULE DR ORAL, GeoLearning, 1000 ea. BOTTLE Active [id number] 2023 90 Pharmac y Data Transac tion Service Facilit y omeprazole 20 mg oral delayed release capsule omeprazo le 20 mg oral delayed release capsule Start Date: 04/16/21 Status: Ordered Ordered No Facilit y Access OMEPRAZOLE 20MG CAP,EC TAKE 1 CAPSULE BY MOUTH EVERY MORNING 30 MINUTES BEFORE BREAKFAS T ORAL ACTIVE GERARD RODRIGUEZ 2024 [facility] oxyCODONE 5 mg oral [...] BD MEDICAL SURG, 100 ea. RODRIGUEZ cárdenas [id number] : 2023 0 Pharmac y Data Transac [...] INTRAM USCULA R ACTIVE GERARD RODRIGUEZ 2024 [facility] tiZANidine 2 mg oral [...] Site Reaction Lot Number CVX Code Drug Inside Sales Territory Manager Status Comments Source ANTHRAX VACCINE, UNSPECIFIED 6 2023 319 complet ed Lot#: [id number] [facility] Influenza, injectable, quadrivalent, preservative free 2021 [id number] TheCreator.MEKline (SKB) complet ed Influenza , injectabl e, quadrival ent, preservat gauri free [facility] tetanus, diphtheria, acellular pertu is 2021 [id number] sanofi pasteur complet ed tetanus, diphtheri a, acellular pertussis 04/24/21 Given Ambulat ory Pharmac y TDAP 2 2021 115 complet ed tetanus toxoid, reduced diphtheri a toxoid, and acellular pertussis vaccine, adsorbed Lot#: [id number] Mfr: SANOFI PASTEUR [facility] tetanus toxoid, reduced diphtheria toxoid, and acellular pertu is vaccine, adsorbed 2 2021 [id number] Sanofi Pasteur (PMC) complet ed tetanus toxoid, reduced diphtheri a toxoid, and acellular pertussis vaccine, adsorbed DoD influenza virus vaccine, inactivated 2020 [id number] Seqirus complet ed influenza virus vaccine, inactivat ed 01/18/21 Given Ambulat ory Pharmac y Influenza, injectable, Madin Orly Canine Kidney, quadrivalent with preservative 9 2020 [id number] Seqirus (SEQ) comple t ed Influenza [...] 100 mcg or 50 mcg dose Lot#: [id number] Mfr: PlanHQA [email or web address]. [facility] SARS-COV-2 (COVID-19) vaccine, mRNA, spike protein, LNP, preservative free, 100 mcg or 50 mcg dose 2 2020 Actelis Networksa WeSpeke, Deskwanted. (MOD) complet ed SARS-COV- 2 (COVID-19 ) [...] 100 mcg or 50 mcg dose Lot#: [id number] Mfr: PlanHQA [email or web address]. [facility] SARS-COV-2 (COVID-19) vaccine, mRNA, spike protein, LNP, preservative free, 100 mcg or 50 mcg dose 1 2020 Moderna WeSpeke, [place]anted. (MOD) complet ed SARS-COV- 2 (COVID-19 ) vaccine, mRNA, spike protein, LNP, preservat gauri free, 100 mcg or 50 mcg dose DoD influenza, injectable, quadrivalent- pf 2019 [id number] 150 Seqirus complet ed influenza , injectabl e, quadrival ent-pf 12/31/19 Given Ambulat ory Pharmac y Influenza, injectable, quadrivalent, preservative free 1 2019 [id number] 077 150 Seqirus (SEQ) complet ed Influenza , injectabl e, quadrival ent, preservat gauri free DoD influenza, injectable, quadrivalent- pf 2018 [id number] 520 150 Seqirus complet ed influenza , injectabl e, quadrival ent-pf 11/20/18 Given Ambulat ory Pharmac y Influenza, injectable, quadrivalent, preservative free 17 2018 [id number] 150 Seqirus (SEQ) complet ed Influenza [...] typhoid Vi capsular polysaccharid e vac 2017 [id number] sanofi pasteur complet ed typhoid Vi capsular polysacch aride vac 06/20/17 Given Ambulat ory Pharmac y TYPHOID, VICPS 2017 101 complet ed typhoid Vi capsular polysacch aride vaccine Lot#: [id number] Mfr: SANOFI PASTEUR [facility] [place] [facility] typhoid Vi capsular polysaccharid e vaccine 5 2017 [id number] Sanofi Pasteur ([facility] [...] virus vaccine DoD influenza, seasonal, injectable 2016 [id number] complet ed influenza , seasonal, injectabl e 12/13/16 Given Ambulat ory Pharmac y Influenza, seasonal, injectable, preservative free 2016 NEW, () Not Given Influenza , seasonal, injectabl e, preservat gauri free DoD Influenza, seasonal, injectable 1 2016 [id number] Transcribed (TRS) complet ed Influenza , [...] gauri DoD influenza, live, intranasal,qu adrivalent 2014 [id number] 149 Medimmune Inc comple t ed influenza , live, intranasa l,quadriv alent 11/20/14 Given Ambulat ory Pharmac y influenza, live, intranasal, quadrivalent 13 2014 [id number] 149 MedImmune, Inc. (MED) complet ed influenza , live, intranasa l, quadrival ent DoD influenza, live, intranasal,qu adrivalent 2013 [id number] 149 Medimmune Inc comple t ed influenza , live, intranasa l,quadriv alent 12/14/13 Given Ambulat ory Pharmac y influenza, live, intranasal, quadrivalent 12 2013 [id number] 149 MedImmune, Inc. (MED) complet ed influenza , live, intranasa l, quadrival ent DoD influenza, live, intranasal,qu adrivalent 2012 [id number] 149 Medimmune Inc comple t ed influenza , live, intranasa l,quadriv alent 10/13/12 Given Ambulat ory Pharmac y influenza, live, intranasal, quadrivalent 0 2012 [id number] 149 MedImmune, Inc. (MED) complet ed influenza , live, intranasa l, quadrival ent DoD typhoid Vi capsular polysaccharid e vac 2012 [id number] 101 sanofi pasteur complet ed typhoid Vi capsular polysacch aride vac 08/16/12 Given Ambulat ory Pharmac y anthrax vaccine 2012 [id number] 24 Emergent Biosolutions complet ed anthrax vaccine 08/16/12 Given Ambulat ory Pharmac y ANTHRAX VACCINE, UNSPECIFIED 7 2012 319 complet ed Lot#: [id number] [facility] anthrax vaccine 7 2012 [id number] 24 Emergent [employer] [place] ([facility]) complet ed anthrax vaccine DoD typhoid Vi capsular polysaccharid e vaccine 4 2012 [id number] 101 Sanofi Pasteur (PMC) complet ed typhoid Vi capsular polysacch aride vaccine DoD influenza virus vaccine, live 2011 [id number] 111 SweetIQ Analytics Inc comple t ed influenza virus vaccine, live 10/30/11 Given Ambulat ory Pharmac y influenza virus vaccine, live, attenuated, for intranasal use 0 2011 [id number] 111 Qual Canal, Deskwanted. (MED) complet ed influenza virus vaccine, live, attenuate d, for intranasa l use DoD tetanus, diphtheria, acellular pertu is 2011 [id number] 115 GlaxoSmithKli ne complet ed tetanus, diphtheri a, acellular pertussis 05/22/11 Given Ambulat ory Pharmac y TDAP 2011 115 complet ed tetanus toxoid, reduced diphtheri a toxoid, and acellular pertussis vaccine, adsorbed Lot#: [id number] A [facility] [place] [facility] tetanus toxoid, reduced diphtheria toxoid, and acellular pertu is vaccine, adsorbed 0 2011 [id number] 115 [facility] (SKB) complet ed tetanus toxoid, reduced diphtheri a toxoid, and acellular pertussis vaccine, adsorbed DoD anthrax vaccine 2011 [id number] Emergent Biosolutions complet ed anthrax vaccine 03/09/11 Given Ambulat ory Pharmac y typhoid Vi capsular polysaccharid e vac 2011 [id number] 101 sanofi pasteur complet ed typhoid Vi capsular polysacch aride vac 03/09/11 Given Ambulat ory Pharmac y ANTHRAX VACCINE, UNSPECIFIED 6 2011 319 complet ed Lot#: [id number] [facility] TYPHOID, VICPS 3 2011 101 complet ed typhoid Vi capsular polysacch aride vaccine Lot#: [id number] Mfr: SANOFI PASTEUR [facility] anthrax vaccine 6 2011 [id number] Emergent BioDefense [employer] [place] ([facility]) complet ed anthrax vaccine DoD typhoid Vi capsular polysaccharid e vaccine 3 2011 [id number] 101 Sanofi Pasteur (PMC) complet ed typhoid Vi capsular polysacch aride vaccine DoD influenza virus vaccine, live 2010 [id number] 111 SweetIQ Analytics Inc comple t ed influenza virus vaccine, live 11/04/10 Given Ambulat ory Pharmac y influenza virus vaccine, live, attenuated, for intranasal use 9 2010 [id number] 111 Qual Canal, Deskwanted. (MED) complet ed influenza virus vaccine, live, attenuate d, for intranasa l use [facility] influenza virus vaccine,split 2009 [id number] 15 sanofi pasteur complet ed influenza virus vaccine,s plit 11/04/09 Given Ambulat ory Pharmac y influenza virus vaccine, split virus (incl. purified surface antigen)-reti red CODE 8 2009 [id number] 15 Sanofi Pasteur ([facility]) complet ed influenza virus vaccine, split virus (incl. purified surface antigen)- retired CODE DoD anthrax vaccine 2009 [id number] Emergent Biosolutions complet ed anthrax vaccine 09/04/09 Given Ambulat ory Pharmac y anthrax vaccine 5 2009 [id number] 24 Emergent BioDefense Operations [place] ([facility]) complet ed anthrax vaccine DoD Novel influenza-H1N 1-09,pf,injec table 2009 [id number] 1 126 Novartis Pharmaceutica ls complet ed Novel influenza -X7Y3-43, pf,inject able 02/25/09 Given Ambulat ory Pharmac y Novel influenza-H1N 1-09, preservative- free, injectable 1 2009 [id number] 1 126 Novartis Pharmaceutica l Tyshawn. (NOV) complet ed Novel influenza -W6N5-74, preservat gauri-free, injectabl e DoD influenza virus vaccine, live 2008 [id number] 111 SweetIQ Analytics Inc comple t ed influenza virus vaccine, live 10/26/08 Given Ambulat ory Pharmac y influenza virus vaccine, live, attenuated, for intranasal use 1 2008 [id number] 111 Qual Canal, [employer]anted. (MED) complet ed influenza virus vaccine, live, attenuate d, for intranasa l use DoD anthrax vaccine 2008 [id number] 24 Emergent Biosolutions complet ed anthrax vaccine 03/27/08 Given Ambulat ory Pharmac y ANTHRAX VACCINE, UNSPECIFIED 5 2008 319 complet ed Lot#: [id number] [facility] anthrax vaccine 5 2008 [id number] [employer] [place] (MIP) complet ed anthrax vaccine DoD influenza virus vaccine,split 2007 [id number] 15 CSL Behring complet ed influenza virus vaccine,s plit 11/14/07 Given Ambulat ory Pharmac y influenza virus vaccine, split virus (incl. purified surface antigen)-reti red CODE 1 2007 [id number] 15 CS DoublePlay Entertainmentherapies, Inc. (CSL) complet ed influenza virus vaccine, split virus (incl. purified surface antigen)- retired CODE DoD anthrax vaccine 2007 [id number] 24 Emergent Biosolutions complet ed anthrax vaccine 09/12/07 Given Ambulat ory Pharmac y ANTHRAX VACCINE, UNSPECIFIED 4 2007 319 complet ed Lot#: [id number] [facility] anthrax vaccine 4 2007 [id number] Emergent BioDefense Operations Mark (MIP) complet ed anthrax vaccine DoD anthrax vaccine 2007 [id number] 24 Emergent Biosolutions complet ed anthrax vaccine 03/30/07 Given Ambulat ory Pharmac y ANTHRAX VACCINE, UNSPECIFIED 3 2007 319 complet ed Lot#: [id number] [facility] anthrax vaccine 3 2007 [id number] 24 [employer] [place] (MIP) complet ed anthrax vaccine DoD anthrax vaccine 2007 [id number] Emergent Biosolutions complet ed anthrax vaccine 03/10/07 Given Ambulat ory Pharmac y ANTHRAX VACCINE, UNSPECIFIED 2 2007 319 complet ed Lot#: [id number] [facility] anthrax vaccine 2 2007 [id number] 24 Emergent [employer] Mark (MIP) complet ed anthrax vaccine DoD anthrax vaccine 2007 [id number] Emergent Biosolutions complet ed anthrax vaccine 02/21/07 Given Ambulat ory Pharmac y ANTHRAX VACCINE, UNSPECIFIED 1 2007 319 complet ed Lot#: [id number] [facility] anthrax vaccine 1 2007 [id number] [employer] [place] (MIP) complet ed anthrax vaccine DoD vaccinia (smallpox) vaccine 0 2007 75 () Not Given vaccinia (smallpox ) vaccine DoD influenza virus vaccine, live 2006 [id number] 111 SweetIQ Analytics Inc comple t ed influenza virus vaccine, live 01/10/07 Given Ambulat ory Pharmac y influenza virus vaccine, live, attenuated, for intranasal use 1 2006 [id number] 111 Qual Canal, Inc. (MED) complet ed influenza virus vaccine, live, attenuate d, for intranasa l use DoD typhoid vaccine, live, oral 2006 [id number] 25 Kell[employer]x [employer] [place] complet ed typhoid vaccine, live, oral 03/05/06 Given Ambulat ory Pharmac y typhoid vaccine, live, oral 1 2006 [id number] 25 SensorLogic ([facility]) complet ed typhoid vaccine, live, oral DoD influenza virus vaccine, live 2005 [id number] 111 SweetIQ Analytics Inc comple t ed influenza virus vaccine, live 12/04/05 Given Ambulat ory Pharmac y influenza virus vaccine, live, attenuated, for intranasal use 1 2005 [id number] 111 Qual Canal, Inc. (MED) complet ed influenza virus vaccine, live, attenuate d, for intranasa l use DoD influenza virus vaccine, live 2004 [id number] 111 MediIn2Games Inc comple t ed influenza virus vaccine, live 12/25/04 Given Ambulat ory Pharmac y influenza virus vaccine, live, attenuated, for intranasal use 1 2004 [id number] 111 MASS-ACTIVE Techgroupune, Inc. (MED) complet ed influenza virus vaccine, live, attenuate d, for intranasa l use DoD influenza virus vaccine, live 2004 [id number] 111 Medimmune Inc comple t ed influenza [...] live, attenuated, for intranasal use 0 2004 [id number] 111 Qual Canal, Inc. (MED) complet ed influenza virus vaccine, live, attenuate d, for intranasa l use DoD hepatitis A-hepatitis B vaccine 2003 [id number] 104 GlaxoSmithKli ne complet ed hepatitis A-hepatit is B vaccine 12/07/03 Given Ambulat ory Pharmac y HEP A-HEP B 3 2003 104 complet ed hepatitis A and hepatitis B vaccine Lot#: [id number] [facility] hepatitis A and hepatitis B vaccine 3 2003 [id number] 104 SmithKline (SKB) complet ed hepatitis A and hepatitis B vaccine DoD hepatitis A-hepatitis B vaccine 2003 [id number] 104 GlaxoSmithKli ne complet ed hepatitis A-hepatit is B vaccine 07/07/03 Given Ambulat ory Pharmac y HEP A-HEP B 2 2003 104 complet ed hepatitis A and hepatitis B vaccine Lot#: [id number] [facility] hepatitis A and hepatitis B vaccine 2 2003 [id number] 104 SmithKline (SKB) complet ed hepatitis A and hepatitis B vaccine DoD hepatitis A-hepatitis B vaccine 2003 [id number] 6 104 GlaxoSmithKli ne complet ed hepatitis A-hepatit is B vaccine 06/06/03 Given Ambulat ory Pharmac y HEP A-HEP B 1 2003 104 complet ed hepatitis A and hepatitis B vaccine Lot#: [id number] [facility] measles, mumps and rubella virus vaccine 0 2003 03 () Not Given measles, mumps and rubella virus vaccine DoD varicella virus vaccine 1 2003 21 () Not Given varicella virus vaccine DoD hepatitis A and hepatitis B vaccine 1 2003 [id number] Global [facility] [facility] (SKB) complet ed hepatitis A and hepatitis B vaccine DoD poliovirus vaccine, inactivated 2003 [id number] 10 sanofi pasteur complet ed polioviru s vaccine, inactivat ed 06/01/03 Given Ambulat ory Pharmac y tetanus-dipht h toxoids (Td) adult/adol 2003 [id number] 09 sanofi pasteur complet ed tetanus-d iphth toxoids (Td) adult/ado l 06/01/03 Given Ambulat ory Pharmac y tuberculin purified protein derivative 2003 [id number] 96 sanofi pasteur complet ed tuberculi n purified protein derivativ e 06/01/03 Given Ambulat ory Pharmac y meningococcal polysaccharid e (MPSV4) 2003 [id number] 32 sanofi pasteur complet ed meningoco ccal polysacch aride (MPSV4) 06/01/03 Given Ambulat ory Pharmac y influenza virus vaccine, whole virus 2003 [id number] 16 Novartis Pharmaceutica complet ed influenza virus vaccine, whole virus 06/01/03 Given Ambulat ory Pharmac y MENINGOCOCCAL MPSV4 2003 32 complet ed meningoco ccal polysacch aride vaccine (MPSV4) Lot#: [id number] Mfr: SANOFI PASTEUR [facility] POLIO, UNSPECIFIED FORMULATION 2003 89 complet ed Sanofi Pasteur Lot#: [id number] [facility] Innovative Spinal TechnologiesU SETS [facility] TD(ADULT) UNSPECIFIED FORMULATION 2003 139 complet ed tetanus and diphtheri a toxoids, adsorbed, preservat gauri free, for adult use (2 Lf of tetanus toxoid and 2 Lf of diphtheri a toxoid) Lot#: [id number] Mfr: SANOFI PASTEUR [facility] Innovative Spinal TechnologiesU SETS [facility] tetanus and diphtheria toxoids, adsorbed, preservative free, for adult use (2 Lf of tetanus toxoid and 2 Lf of diphtheria toxoid) 0 2003 [id number] Sanofi Pasteur (PMC) complet ed tetanus and diphtheri a toxoids, adsorbed, preservat gauri free, for adult use (2 Lf of tetanus toxoid and 2 Lf of diphtheri a toxoid) [facility] poliovirus vaccine, inactivated 0 2003 [id number] 10 Sanofi Pasteur (PMC) complet ed polioviru s vaccine, inactivat ed DoD influenza virus vaccine, whole virus 0 2003 [id number] 16 PowderJect Pharmaceutica ls (PWJ) complet ed influenza virus vaccine, whole virus DoD meningococcal polysaccharid e vaccine (MPSV4) 0 2003 [id number] 32 Sanofi Pasteur (PMC) complet ed meningoco ccal polysacch aride vaccine (MPSV4) [facility] Vital Signs Combined list of inpatient and outpatient Vital Signs from Department of Defense and Veterans Affairs, ranging from 12 months to all on record, depending upon the facility. Vital Sign Value Date Comments Source SYSTOLIC BLOOD PRESSURE 144 03/02/19 25 15:33:11 [facility] [place] [facility] DIASTOLIC BLOOD PRESSURE 100 025 [...] [facility] RESPIRATION 16 03/02/2024 15:33:11 [facility] Encounters Combined list [...] DC Date Status Disposition Source [employer]([facility]) TELE CONSULT [id number] chest congest ion with fever KATE, SERGIO 03/23 [employer]) [employer](Int Med Clinic) OUTPATIENT [id number] URI symptom s PITER MALDONADO 03/23 Released w/o Limitations [employer](I nt Med Clinic) [employer](Fli ght Medicine Clinic) OUTPATIENT [id number] [facility] YAYA SANTOS M 04/27 Released w/o Limitations [employer](F light Medicin e Clinic) [employer]([facility] Red) TELE CONSULT [id number] foot swollen and cant walk on it; pt has an appt tomorro w but ... MODESTO HANKINS 05/05 [employer](F am[facility] Practic [facility] Red) [facility] Practice Blue) OUTPATIENT [id number] swollen painful R foot RADDEN, JAIME D 05/05 Released w/o Limitations [employer](F [facility] Practic [facility] Blue) [facility] Red) OUTPATIENT [id number] pt injured r foot pain ful when put pressur e painful to touch KATE, SERGIO 05/06 Released w/o Limitations [employer](F amily Practic e Red) [facility](Opt ometry Clinic) OUTPATIENT [id number] possibl e foreign body LATIA CARVAJAL 05/06 Released w/o Limitations [employer](O ptometr y Clinic) [facility] Blue) TELE CONSULT [id number] right foot pain RADDEN, JAIME D 05/08 [employer]([facility] Practic [facility] Blue) [facility] Blue) OUTPATIENT [id number] f/u on gout RADDEN, JAIME D 05/10 Released w/o Limitations [employer]([facility] amily Practic [facility] Blue) [facility](Fam mara Practice Blue) OUTPATIENT [id number] gout RADDEN, JAIME D 05/13 Released w/o Limitations [facility](F amily Practic e Blue) [employer](Fam [facility]) TELE CONSULT [id number] CONCERN S ABOUT REFERRA L DOM REDMOND 05/14 [employer]([facility] am[facility] Practic e Blue) [employer](Fam [facility] Practice Red) OUTPATIENT [id number] profile and med refill KATE, SERGIO 07/20 Released with Work/Duty Limitations [employer](F amily Practic e Red) [employer](Fam mara Practice Red) TELE CONSULT [id number] referra l for orthope dic special ist for ankle KATE, SERGIO 08/02 [employer]) [employer]) TELE CONSULT [id number] pt was sent to orthope dic and pt was giving a out of work MODESTO Julio 09/09 [employer]) [employer]) TELE CONSULT [id number] pt needs med refill ADALET 60mg pt has 5 pills left KATE, SERGIO 09/16 [employer]([facility] Practic [facility] Red) [facility] Practice Red) OUTPATIENT [id number] f/u htn (adalat increas ed last appt) KATE, SERGIO 10/13 Released w/o Limitations [employer]([facility] Pract[facility] Red) [employer]) OUTPATIENT [id number] over[place] s DEBBIE Boone 12/13 Released w/o Limitations [employer]([facility]) [employer]) OUTPATIENT [id number] pt pcsing in april, eeds CONOR Blanchard 01/28 Released w/o Limitations [employer]([facility] Practic [facility] Red) [facility] Practice Red) OUTPATIENT [id number] medical EDIE Rinaldi 03/09 Released w/o Limitations [employer]([facility] Practic e Red) [facility] Practice Red) OUTPATIENT [id number] F/U from appt Feb 22--med mary melchor EDIE IBANEZ. 03/23 Released w/o Limitations [employer]) [employer]([facility]) OUTPATIENT [id number] follow up on bp EDIE IBANEZ. 03/30 Released w/o Limitations [employer] Red) [employer]([facility]) TELE CONSULT [id number] Pt has questio ns about pha and hiv test MODESTO HANKINS 04/08 [employer]([facility] Pract[facility] Red) [employer]([facility]) OUTPATIENT [id number] pha due oversea JOIE Lizama 04/11 Released w/o Limitations [employer](P BUENO Cell) [employer]([facility]) OUTPATIENT [id number] occp pe/stru ctural MX YAYA SANTOS 04/12 Released w/o Limitations [employer](F light Medicin e Clinic) [employer]([facility]) OUTPATIENT [id number] Inproce ssing Record Review EDITH DESAI 07/21 Released w/o Limitations [employer] [employer]([facility]) OUTPATIENT [id number] PHA JOHANNY AGUILERA 04/27 Released w/o Limitations [employer]) [employer]([facility]) TELE CONSULT [id number] f/u pha YORUBA, UN DIAN 05/01 [employer]) [employer]([facility]) OUTPATIENT [id number] f/u 3day bp check YORUBA, UN DIAN 05/04 Released w/o Limitations [employer]) [employer]([facility]) OUTPATIENT [id number] [facility]- AUDIOGR AM,MED HY,PHY EX,WORK PLACE EXP,RES P QUEST JUANJO CLEARY 07/05 Released w/o Limitations [employer](F light Surgeon Office) [employer]) OUTPATIENT [id number] JANNA Garcia 08/03 Sick at Home/Quarter s [employer]([facility] Pract[facility] Clinic) [employer]([facility]) OUTPATIENT [id number] FT- MISSY MCKEON Tristan 11/05 Released w/o Limitations [employer]) [employer]([facility]) OUTPATIENT [id number] FT-MARKO BRISA AHUJA 11/06 Sick at Home/Quarter s [employer] Pract[facility]) [employer]([facility]) OUTPATIENT [id number] ft nasal congest ion product gauri cough clear sore throat JONEL BUSBY 11/09 Sick at Home/Quarter s [employer]([facility] Pract[facility] Clinic) [employer]([facility]) DENTAL [id number] Exam JOSE RAFAEL MAGAÑA 12/21 Released w/o Limitations [employer](D ental Clinic) [employer]([facility]) DENTAL [id number] DEION Pardo 12/21 Released w/o Limitations [employer](D ental Clinic) [employer]([facility]) TELE CONSULT [id number] VASECTO MY CONSULT XIANG MATHUR R 01/28 [employer]) [employer]([facility]) OUTPATIENT [id number] Vas Consult XIANG MATHUR R 03/01 Released w/o Limitations [employer]) [employer]([facility]) OUTPATIENT [id number] F/U HBP, LABS XIANG MATHUR R 04/02 Released w/o Limitations [employer]) [employer]([facility]) OUTPATIENT [id number] ANN MARIE YOST 04/18 Released w/o Limitations [employer](P BUENO Cell) [employer]([facility]) TELE CONSULT [id number] RADHA Gutierrez FOR SURGERY BRYANNA ADORNO 04/25 [facility] Practic e Clinic) [employer]([facility]) TELE CONSULT [id number] con lv or quarter s XIANG MATHUR 08/12 [facility] Pract[facility]) [employer]([facility]) OUTPATIENT [id number] Per XIANG Fitzpatrick 08/13 Released w/o Limitations [facility] [employer]) [facility] [employer]([facility]) TELE CONSULT [id number] F/U BLOOD PRESSUR E MARK MCCLENDON 09/02 [facility] Pract[facility]) [employer]([facility]) TELE CONSULT [id number] Deploym ent ELMER Fofana 09/04 [facility] Practic e Clinic) [employer]([facility]) OUTPATIENT [id number] finger pain x months/ pt request ed alterna te pcm. (pt's pcm on leave) MAYITO CHAVEZ 09/05 Released w/o Limitations [facility]) [facility] [employer]([facility]) TELE CONSULT [id number] CALL BACK FOR DEPLOYM ENT ELMER ALBERTO 09/10 [facility] Pract[facility] Clinic) [facility] [id number] [facility] audio normal no exam needed RAMILA DAMIAN 09/12 Released w/o Limitations [employer](F light Surgeon Office) [employer] OUTPATIENT [id number] [facility] STERLING GEE 09/20 Released w/o Limitations [employer](F light Surgeon Office) [facility] [employer]([facility]) TELE CONSULT [id number] RETRO REFERRA L CHAPIS LEE 12/06 Referred for Appointment [facility]) [employer]([facility]) TELE CONSULT [id number] quarter s MARK MCCLENDON 12/06 [employer]([facility] Pract[facility] Clinic) [employer]([facility]) TELE CONSULT [id number] RETRO REFERMISSY FERRELL 12/12 Referred for Appointment [employer]) [employer]([facility]) TELE CONSULT [id number] NAUSEA/ BUENO X TODAY CHAPIS FULTON 12/24 Referred for Appointment [employer]) [employer]([facility]) TELE CONSULT [id number] work excuse/ quarter s CAMDENCANDY MICHEL Tristan 12/24 [employer] Pract[facility]) [employer]([facility]) TELE CONSULT [id number] Quarter s [employer] CANDY TOPETE Tristan 01/03 [employer]([facility]) [facility] [employer]([facility]) OUTPATIENT [id number] NVD, BUENO, chills -FT- JUANJO FULTON 01/24 Sick at Home/Quarter s [employer]([facility] Pract[facility] Clinic) [employer]([facility]) OUTPATIENT [id number] ON GOING RASH X 1 MTH //POSSI BLE DERMATO LOGY REFERBRYANNA CHAVEZ 02/05 Released w/o Limitations [employer]([facility]) [employer]([facility]) TELE CONSULT [id number] Referra demar gutierrez n for CHAPIS Gardiner 02/18 Referred for Appointment [employer]([facility]) [employer]([facility]) OUTPATIENT [id number] SORE THROAT, HEADACH E, FEVER, CHILLS TANNER VILLASEÑOR 02/28 Released w/o Limitations [employer]([facility] Pract[facility] Clinic) [employer]([facility]) TELE CONSULT [id number] KEENAN SHERIFF 03/11 Referred for Appointment [employer]([facility] Pract[facility] Clinic) [employer]([facility]) TELE CONSULT [id number] NURSE CONSULT /REACTI ON TO MEDS KEENAN SHERIFF 03/20 [employer]([facility] Pract[facility] Clinic) [employer]([facility]) OUTPATIENT [id number] sore throat/ med side effects CANDY TOPETE 03/24 Released w/o Limitations [employer]([facility] Practic e Clinic) [employer]([facility]) OUTPATIENT [id number] MARK Benedict 04/21 Sick at Home/Quarter s [employer]([facility] Practic e Clinic) [employer]([facility]) OUTPATIENT [id number] PHA/EMS CHRISTIVICKIE RINCON Lis 05/29 Released w/o Limitations [employer](P BUENO Cell) [employer](Fam Med Cl Tm B Non-Ad) TELE CONSULT [id number] ACTIVE DUTY/ RIGHT CALF PAIN KEENAN SHERIFF 08/19 [employer](F am Med Cl Tm B Non-Ad) [employer]([facility]) OUTPATIENT [id number] right calf pain since last Thursda y CANDY TOPETE 08/20 Released w/o Limitations [employer]([facility] Practic e Clinic) [employer](Fam Med Cl Tm B Non-Ad) TELE CONSULT [id number] LIAN HOLT PROFILE /WAS SEEN YESTERD KEENAN HOWE 08/21 [facility] Group(F am Med Cl Tm B Non-Ad) [employer](Fam Med Cl Tm B Non-Ad) TELE CONSULT [id number] profile extensi on request KISHORE MARROQUIN 09/05 [employer](F am Med Cl Tm B Non-Ad) [employer](Fam Med Cl Tm B Non-Ad) TELE CONSULT [id number] PROFILE EXTENSI ON KISHORE MARROQUIN O 09/08 [employer](F am Med Cl Tm B Non-Ad) [employer](Fam Med Cl Tm B Non-Ad) OUTPATIENT [id number] fu right leg / profile CANDY TOPETE 09/17 Released w/o Limitations [employer](F am Med Cl Tm B Non-Ad) [facility] OUTPATIENT [id number] F/U PROFILE ANGEL FULTONOlga Benz 10/03 Released w/o Limitations [employer](F [place] Affilia nikolay) [employer]([facility]) OUTPATIENT [id number] SUMIT ROSEN 10/03 Released with Work/Duty Limitations [employer]([facility] Therapy [facility]) [employer]) OUTPATIENT [id number] Rt lower leg pain MARCIAL, LUIS 10/09 Released with Work/Duty Limitations [employer]) [employer] OUTPATIENT [id number] NATALIIA GUERIN 10/14 Released with Work/Duty Limitations [employer]([facility]) [employer] [facility]) OUTPATIENT [id number] MARCIAL, LUIS 10/16 Released with Work/Duty Limitations [employer]) [employer]) OUTPATIENT [id number] BRISA GONZALEZ 10/28 Released with Work/Duty Limitations [employer]([facility] Therapy [facility]) [employer]) OUTPATIENT [id number] SUMIT ROSEN 10/29 Released with Work/Duty Limitations [employer]([facility]ys[facility] Therapy Clinic) [employer](Fli ght Surgeon Office) OUTPATIENT [id number] [facility] LEIGH TAYLOR 11/21 Released w/o Limitations [employer](F light Surgeon Office) [employer]([facility]) OUTPATIENT [id number] BRISA GONZALEZ 12/19 Released w/o Limitations [employer]([facility] Therapy Clinic) [employer]) OUTPATIENT [id number] MARCIAL, LIUS 12/29 Released w/o Limitations [employer]([facility] Therapy Clinic) [employer] [facility]) OUTPATIENT [id number] MARCIAL, LUIS 01/02 Released w/o Limitations [employer]([facility] Therapy Clinic) [employer] [facility]) OUTPATIENT [id number] MARCIALBALDO MARCUSRO 01/05 Released w/o Limitations [employer]([facility] Therapy Clinic) [employer]) OUTPATIENT [id number] SUMIT ROSEN E 01/26 Released with Work/Duty Limitations [employer]([facility] Therapy Clinic) [employer]) OUTPATIENT [id number] MARCIAL, LUIS 02/13 Released with Work/Duty Limitations [employer](P [facility]ys[facility] Therapy Clinic) [employer]) OUTPATIENT [id number] MARCIAL, LUIS 02/20 Released with Work/Duty Limitations [employer](P [facility]ys[facility] Therapy Clinic) [employer]) OUTPATIENT [id number] NATALIIA GUERIN 03/10 Released with Work/Duty Limitations [employer]([facility] Therapy [facility]) [employer] TELE CONSULT [id number] PRE DEPLOYM ENT CLEARAN CE APR 14 2011 DAYTON LORA 03/13 [employer](F [place] Affilia nikolay) [employer]([facility]) OUTPATIENT [id number] BRISA GONZALEZ 03/13 Released with Work/Duty Limitations [employer](P [facility]ysical Therapy Clinic) [employer]([facility]) OUTPATIENT [id number] MARCIAL, LUIS 03/16 Released with Work/Duty Limitations [employer](P [facility]ys[facility] Therapy Clinic) [employer]([facility]) OUTPATIENT [id number] SUMIT ROSEN E 04/10 Released with Work/Duty Limitations [employer](P [facility]ysical Therapy Clinic) [employer](Fam Med Cl Tm B Non-Ad) OUTPATIENT [id number] F/U PROFILE / MED REFILL ROHIT CLARK 05/24 Released w/o Limitations [employer](F am Med Cl Tm B Non-Ad) [employer]([facility] n [facility] Team D) OUTPATIENT [id number] chest cold, hurt finger SKYLAR ARIAS 07/22 Released w/o Limitations [employer](O del cid [facility] Team D) [facility](Fam Med Cl Tm B Non-Ad) TELE CONSULT [id number] Notes Entered by: RICHARD CRYSTAL 03 Aug 2011 0810 ------- ------- ------- ------- -- Physica l Therapy ROHIT Stewart 08/02 [employer](F am Med Cl Tm B Non-Ad) [facility] s) TELE CONSULT [id number] Notes Entered by: Da WORKMAN 01 Dec 2011 1158 ------- ------- ------- ------- -- ER VISIT F/U MISSY CORTEZ 11/30 [facility]) [facility] Med Cl Tm B Non-Ad) TELE CONSULT [id number] Notes Entered by: Da WORKMAN 01 Dec 2011 1204 ------- ------- ------- ------- -- L. FOOT PAIN REYNA MOREL 11/30 [facility](F am Med Cl Tm B Non-Ad) [facility] s) OUTPATIENT [id number] left foot pain//c VENITA Kumar 12/02 Released w/o Limitations [employer]([facility]) [facility] Med Cl Tm B Non-Ad) TELE CONSULT [id number] Notes Entered by: REYNA MOREL 24 Dec 2011 1339 ------- ------- ------- ------- -- Con leave request REYNA MOREL 12/23 [employer](F am Med Cl Tm B Non-Ad) [facility] s) TELE CONSULT [id number] Notes Entered by: STACY LIN 29 Dec 2011 0941 ------- ------- ------- ------- -- CON LEAVE EXT MARIA TERESASHINECHAPITO Espinoza 12/28 [employer] [employer](Fam Med Cl Tm B Non-Ad) TELE CONSULT [id number] Notes Entered by: ROHIT CLARK 11 Jan 2012 1712 ------- ------- ------- ------- -- ROHIT Tan 01/10 [employer](F am Med Cl Tm B Non-Ad) [facility](Fam Med Cl Tm B Non-Ad) OUTPATIENT [id number] nausea diarrhe a some lighthe adednes s x 3 days// DEJA LEOS 04/29 Sick at Home/Quarter s [facility](F am Med Cl Tm B Non-Ad) [facility]) OUTPATIENT [id number] Notes Entered by: Da WORKMAN 02 May 2012 0935 ------- ------- ------- ------- -- f/u n/DELGADO Glover 05/02 Sick at Home/Quarter s [employer]([facility] Surgeon [facility]) [facility](Fam Med Cl Tm B Non-Ad) TELE CONSULT [id number] Notes Entered by: KAMERON GE 30 May 2012 1304 ------- ------- ------- ------- -- ACTIVE DUTY PT WITH RASH/ RIGHT ARM MISSY CORTEZ 05/30 [facility] [employer](F am Med Cl Tm B Non-Ad) [facility](Fam Med Cl Tm B Non-Ad) OUTPATIENT [id number] nurse clinic - rash// MISSY CORTEZ 05/30 Released w/o Limitations [employer](F am Med Cl Tm B Non-Ad) [facility]) OUTPATIENT [id number] Occ Health BEVERLY BATES 06/06 Released w/o Limitations [employer](F light Surgeon Office) [employer](Fam Med Cl Tm B Non-Ad) TELE CONSULT [id number] Notes Entered by: ALIYA MCKEON 04 Jul 2012 1012 ------- ------- ------- ------- -- Network Results -RHEUMA TOLOGY 05/28 MISSY CORTEZ 07/04 [employer](F am Med Cl Tm B Non-Ad) [employer]([facility]) OUTPATIENT [id number] PHA ZACHARY MCGEE 07/12 Released w/o Limitations [facility](P BUENO Cell) [employer](Fam Med Cl Tm B Non-Ad) OUTPATIENT [id number] MED CK, BP CK ROHIT CLARK 08/03 Released w/o Limitations [facility](F am Med Cl Tm B Non-Ad) [employer] OUTPATIENT [id number] Pre BREE VILLALOBOS 08/16 Released w/o Limitations [employer](D eployme Health Assess ents) [employer]([facility]) OUTPATIENT [id number] Notes Entered by: William ROSE 06 Sep 2012 1231 ------- ------- ------- ------- -- VAIBHAV STOKES 09/06 Released w/o Limitations [facility]) [employer](Fam Med Cl Tm B Non-Ad) TELE CONSULT [id number] Notes Entered by: NEELAM CONROY 14 Sep 2012 1318 ------- ------- ------- ------- -- PRE DEPLOY ENT ROHIT MARTINES 09/14 [employer](F am Med Cl Tm B Non-Ad) [facility] OUTPATIENT [id number] Theater 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 04/27 Released w/o Limitations [facility] [employer](Fam Med Cl Tm B Non-Ad) TELE CONSULT [id number] Notes Entered by: KAMERON GE 04 Sep 2013 0837 ------- ------- ------- ------- -- ACTIVE DUTY/ VOMITIN G/ NAUSEA KEENAN SHERIFF 09/04 Referred for Appointment [facility](F am Med Cl Tm B Non-Ad) [facility](Fli ght Surgeon Office) OUTPATIENT [id number] [facility] 09/04 Released w/o Limitations [facility](F light Surgeon Office) [facility](Fam Med Cl Tm B Non-Ad) OUTPATIENT [id number] BP med refROHIT Bowers 09/06 Released w/o Limitations [facility](F am Med Cl Tm B Non-Ad) [facility] OUTPATIENT [id number] sleep LONG, DELVIDA L 09/06 Released w/o Limitations [facility](I ntegrat ed Behavio ral H[facility]th Cln) [facility](Dep [facility] Health Assessmen ts) OUTPATIENT [id number] DHA3, 40 min BREE HOLT 09/14 Released w/o Limitations [employer](D eployme nt Health Assessm ents) [facility]) OUTPATIENT [id number] PHA-Tristan TO BE COMPLET DIANA CALDWELL 09/14 Released w/o Limitations [facility](P BUENO Cell) [facility]) OUTPATIENT [id number] F/U sleep LONG, DELVIDA L 09/22 Released w/o Limitations [facility](I ntegrat ed Behavio ral Hlth Cln) [facility](Fam Med Cl Tm B Non-Ad) TELE CONSULT [id number] Notes Entered by: KAMERON GE 22 Sep 2013 1527 ------- ------- ------- ------- -- ACTIVE DUTY/ PULLED GROIN WHILE RUNNING KEENAN SHERIFF 09/22 Referred for Appointment [employer](F am Med Cl Tm B Non-Ad) [employer](Fam Med Cl Tm B Non-Ad) OUTPATIENT [id number] left groin pain ROHIT CLARK 09/25 Released with Work/Duty Limitations [employer](F am Med Cl Tm B Non-Ad) [employer]([facility]) OUTPATIENT [id number] F/U sleep TITO FORBES 09/28 Released w/o Limitations [employer](I ntegrat ed Behavio ral Hlth Cln) [employer](Fam Med Cl Tm B Non-Ad) TELE CONSULT [id number] Notes Entered by: KAMERON GE 20 Oct 2013 0946 ------- ------- ------- ------- -- ACTIVE DUTY/ POSSIBL E STREP THROAT KEENAN SHERIFF 10/20 Referred for Appointment [employer](F am Med Cl Tm B Non-Ad) [employer](Fam Med Cl Tm B Non-Ad) TELE CONSULT [id number] Notes Entered by: KEENAN SHERIFF 24 Oct 2013 1321 ------- ------- ------- ------- -- Lab results KEENAN SHERIFF 10/24 Referred for Appointment [employer](F am Med Cl Tm B Non-Ad) [employer](Fam Med Cl Tm B Non-Ad) TELE CONSULT [id number] Notes Entered by: Edgar PENA 01 Dec 2013 0743 ------- ------- ------- ------- -- ER Farhan/KEENAN GALLAGHER 12/01 Immediate Referral [employer](F am Med Cl Tm B Non-Ad) [employer](Fam Med Cl Tm B Non-Ad) OUTPATIENT [id number] f/u - left shoulde r ROHIT Talley 12/04 Sick at Home/Quarter s [employer](F am Med Cl Tm B Non-Ad) [employer](Fam Med Cl Tm B Non-Ad) OUTPATIENT [id number] F/U ROHIT Vidal 12/08 Released w/o Limitations [employer](F am Med Cl Tm B Non-Ad) [employer](Fam Med Cl Tm B Non-Ad) TELE CONSULT [id number] Notes Entered by: KAMERON GE 18 Jan 2014 1033 ------- ------- ------- ------- -- ACTIVE DUTY/ PROFILE ISSUE CHASCONCEPCION PITTMANEvangelina Mirza 01/18 Referred for Appointment [employer] [facility](F am Med Cl Tm B Non-Ad) [facility] [employer](Fam Med Cl Tm B Non-Ad) TELE CONSULT [id number] Notes Entered by: BROOKE HERNADEZ 09 Mar 2014 1523 ------- ------- ------- ------- -- Out Process bertram KWAN FLOR N 03/09 Released to [employer] [facility](F am Med Cl Tm B Non-Ad) [place] [address](AFN G 104 Med Sq-FM) OUTPATIENT [id number] Notes Entered by: Antoinette GUILLEN II 16 Jul 2016 0730 ------- ------- ------- ------- -- Short Non-Fly / Occupat [facility] MARTHA MONTERO 07/16 Released w/o Limitations [facility] [place] [address](A FNG 104 Med Sq-FM) [place] [address](AFN G 104 Med Sq-FM) OUTPATIENT [id number] Notes Entered by: MARCIA MEDEL 28 Nov 2016 0941 ------- ------- ------- ------- -- Med f/u 469 MARCIA MEDEL 11/28 Released with Work/Duty Limitations [facility] [place] [address](A FNG 104 Med Sq-FM) [facility] Treatment [facility] [place] [address](AFN G 104 Med Sq-FM) OUTPATIENT [id number] Notes Entered by: LY JACKSON 15 Jan 2017 1329 ------- ------- ------- ------- -- Provide r f/u JOHANNY BRADEN 01/15 [facility] w/o Limitations [facility] [place] [address](A FNG 104 Med Sq-FM) [place] [address](AFN G 104 Med Sq-FM) OUTPATIENT [id number] Notes Entered by: TREY BULLOCK 18 Mar 2017 1320 ------- ------- ------- ------- -- JOSE RAFAEL SHORE 03/18 Released with Work/Duty Limitations [facility] [place] [address](A FNG 104 Med Sq-FM) [place] [address](AFN G 104 Med Sq-FM) OUTPATIENT [id number] Notes Entered by: HOLLIE ALTMAN 09 Apr 2017 1726 ------- ------- ------- ------- -- MARTHA Esparza 04/09 Released w/o Limitations [facility] [place] [address](A FNG 104 Med Sq-FM) [place] [address](AFN G 104 Med Sq-FM) OUTPATIENT [id number] Notes Entered by: TREY BULLOCK 16 Apr 2017 1511 ------- ------- ------- ------- -- Luis Enrique mirza MD note review JOSE RAFAEL BULLOCK 04/16 Released with Work/Duty Limitations [facility] [place] [address](A FNG 104 Med Sq-FM) [place] [address](AFN G 104 Med Sq-FM) OUTPATIENT [id number] 3 Notes Entered by: JOHANNY BRADEN 25 Feb 2018 1317 ------- ------- ------- ------- -- right Juan M s tendoni tis, RTD JOHANNY BRADEN 02/25 [facility]ased w/o Limitations [facility] [place] [address](A FNG 104 Med Sq-FM) [place] [address](AFN G 104 Med Sq-FM) OUTPATIENT [id number] Notes Entered by: JOHANNY BRADEN 15 Apr 2018 1026 ------- ------- ------- ------- -- Occ/Ski n exam and PHAQ JOHANNY BRADEN 04/15 Released w/o Limitations [facility] [place] [address](A FNG 104 Med Sq-FM) [place] [address](AFN G 104 Med Sq-FM) OUTPATIENT [id number] 7 Notes Entered by: MARICRUZ MONTERO 21 May 2018 1040 ------- ------- ------- ------- -- 469 f/u MARTHA MONTERO 05/21 Released w/o Limitations [facility] [place] [address](A FNG 104 Med Sq-FM) [place] [address](AFN G 104 Med Sq-FM) OUTPATIENT [id number] 8 Notes Entered by: MARCIA MEDEL 17 Jun 2018 1443 ------- ------- ------- ------- -- right foot MARCIA MEDEL 06/17 Released with Work/Duty Limitations [facility] [place] [address](A FNG 104 Med Sq-FM) [place] [address](AFN G 104 Med Sq-FM) OUTPATIENT [id number] 5 Notes Entered by: MARCIA MEDEL 01 Oct 2018 0949 ------- ------- ------- ------- -- follow up MARCIA Ordaz 10/01 Released with Work/Duty Limitations [facility] [place] [place] [address](A FNG 104 Med Sq-FM) [facility], [place] [address](AFN G 104 Med Sq-FM) OUTPATIENT [id number] 0 Notes Entered by: MARCIA MEDEL 08 Mar 2019 1449 ------- ------- ------- ------- -- R foot pain MARCIA MEDEL 03/08 Released with Work/Duty Limitations [facility] [place] [place] [address](A FNG 104 Med Sq-FM) [facility], [place] [address](AFN G 104 Med Sq-FM) TELE CONSULT [id number] Notes Entered by: MARCIA MEDEL 09 Mar 2019 1020 ------- ------- ------- ------- -- foot pain MARCIA MEDEL 03/09 [facility] [place] [place] [address](A FNG 104 Med Sq-FM) [facility], [place] [address](AFN G 104 Med Sq-FM) OUTPATIENT [id number] 7 Notes Entered by: SCOTT HINDS 09 Mar 2019 1439 ------- ------- ------- ------- -- Annual MSE / [place] exams MARCIA MEDEL 03/09 Released with Work/Duty Limitations [facility] [place] [place] [address](A FNG 104 Med Sq-FM) [place] [address](AFN G 104 Med Sq-FM) OUTPATIENT [id number] Notes Entered by: MARCIA MEDEL 21 Mar 2019 1022 ------- ------- ------- ------- -- PHAQ MARCIA MEDEL 03/21 Released with Work/Duty Limitations [facility] [place] [address](A FNG 104 Med Sq-FM) [facility], [place] [address](AFN G 104 Med Sq-FM) TELE CONSULT [id number] Notes Entered by: MARCIA MEDEL 14 Apr 2019 1039 ------- ------- ------- ------- -- Op note MARCIA MEDEL 04/14 [facility] [place] [address](A FNG 104 Med Sq-FM) [facility], [place] [address](AFN G 104 Med Sq-FM) TELE CONSULT [id number] Notes Entered by: MARCIA MEDEL 21 Apr 2019 1409 ------- ------- ------- ------- -- foot pain MARCIA MEDEL 04/20 [facility] [place] [place] [address](A FNG 104 Med Sq-FM) [facility], [place] [address](AFN G 104 Med Sq-FM) TELE CONSULT [id number] Notes Entered by: MARCIA MEDEL 26 Apr 2019 1249 ------- ------- ------- ------- -- R foot pain MARCIA MEDEL 04/25 [facility] [place] [address](A FNG 104 Med Sq-FM) [facility](AFN G 104 Med Sq-FM) TELE CONSULT [id number] Notes Entered by: MARCIA MEDEL 17 May 2019 1151 ------- ------- ------- ------- -- foot pain ANTOINE MEDELTIA DUMONT 05/16 [facility] [place] [address](A FNG 104 Med Sq-FM) [place] [address](AFN G 104 Med Sq-FM) TELE CONSULT [id number] Notes Entered by: TREY BULLOCK 08 Jun 2019 0912 ------- ------- ------- ------- -- note review JOSE RAFAEL BULLOCK 06/07 [facility] [place] [address](A FNG 104 Med Sq-FM) [place] [address](AFN G 104 Med Sq-FM) TELE CONSULT [id number] ANTOINE MEDELTIA DUMONT 08/14 [facility] [place] [address](A FNG 104 Med Sq-FM) [place] [address](AFN G 104 Med Sq-FM) TELE CONSULT [id number] Notes Entered by: MARCIA MEDEL 12 Oct 2019 1405 ------- ------- ------- ------- -- follow up GIANFRANCO MARCIA DUMONT 10/11 [facility] [place] [address](A FNG 104 Med Sq-FM) [place] [address](AFN G 104 Med Sq-FM) OUTPATIENT [id number] Notes Entered by: MARCIA MEDEL 24 Oct 2019 0916 ------- ------- ------- ------- -- Right foot pain MARCIA MEDEL 10/23 Released with Work/Duty Limitations [facility] [place] [address](A FNG 104 Med Sq-FM) [place] [address](AFN G 104 Med Sq-FM) TELE CONSULT [id number] Notes Entered by: MARCIA MEDEL 09 Jan 2020 1459 ------- ------- ------- ------- -- R foot pain MARCIA MEDEL 01/08 [facility] [place] [place] [address](A FNG 104 Med Sq-FM) [facility], [place] [address](AFN G 104 Med Sq-FM) TELE CONSULT [id number] Notes Entered by: MARCIA MEDEL 05 Mar 2020 0904 ------- ------- ------- ------- -- R foot pain MARCIA MEDEL 03/05 [facility] [place] [place] [address](A FNG 104 Med Sq-FM) [facility], [place] [address](AFN G 104 Med Sq-FM) OUTPATIENT [id number] MARCIA MEDEL 03/14 Released w/o Limitations [facility] [place] [address](A FNG 104 Med Sq-FM) [facility], [place] [address](AFN G 104 Med Sq-FM) OUTPATIENT [id number] Notes Entered by: MARCIA MEDEL 14 Mar 2020 1055 ------- ------- ------- ------- -- PHAQ MARCIA MEDEL 03/14 Released with Work/Duty Limitations [facility] [place] [place] [address](A FNG 104 Med Sq-FM) [facility], [place] [address](AFN G 104 Med Sq-FM) TELE CONSULT [id number] Notes Entered by: MARCIA MEDEL 03 Apr 2020 1443 ------- ------- ------- ------- -- R foot pain MARCIA MEDEL 04/03 [facility] [place] [place] [address](A FNG 104 Med Sq-FM) [facility], [place] [address](AFN G 104 Med Sq-FM) TELE CONSULT [id number] Notes Entered by: MARCIA MEDEL 09 Apr 2020 1056 ------- ------- ------- ------- -- return MARCIA MEDEL 04/09 [facility] [place] [place] [address](A FNG 104 Med Sq-FM) [facility], [place] [address](AFN G 104 Med Sq-FM) OUTPATIENT [id number] Notes Entered by: RUTH SHIRLEY 24 Apr 2020 1247 ------- ------- ------- ------- -- Audiogr am /Respir ator Fit Test /[place] Questio nnaire/ HIV/Vit als/ Provide r([place]-Ph ysica MARCIA MEDEL 04/24 Released w/o Limitations [facility], [place] [address](A FNG 104 Med Sq-FM) [facility], [place] [address](AFN G 104 Med Sq-FM) TELE CONSULT [id number] Notes Entered by: MARCIA MEDEL 11 Jul 2020 1554 ------- ------- ------- ------- -- R foot pain MARCIA MEDEL 07/11 [facility], [facility](A FNG 104 Med Sq-FM) [facility], [place] [address](AFN G 104 Med Sq-FM) OUTPATIENT [id number] 9 Notes Entered by: MARCIA MEDEL 10 Sep 2020 0936 ------- ------- ------- ------- -- LUISITO MARCIA MEDEL 09/10 Sick at Home/Quarter s [facility] [place] [address](A FNG 104 Med Sq-FM) [place] [address](AFN G 104 Med Sq-FM) TELE CONSULT [id number] MARCIA MEDELONE 12/10 [facility] [place] [address](A FNG 104 Med Sq-FM) [place] [address](AFN G 104 Med Sq-FM) TELE CONSULT [id number] MARCIA MEDEL 01/01 [facility] [place] [address](A FNG 104 Med Sq-FM) [place] [address](AFN G 104 Med Sq-FM) TELE CONSULT [id number] MARCIA MEDEL 01/07 [facility] [place] [address](A FNG 104 Med Sq-FM) [place] [address](AFN G 104 Med Sq-FM) TELE CONSULT [id number] MARCIA MEDEL 02/05 [facility] [place] [address](A FNG 104 Med Sq-FM) [place] [address](AFN G 104 Med Sq-FM) OUTPATIENT [id number] Notes Entered by: MARCIA MEDEL JULIA 25 Feb 2021 1434 ------- ------- ------- ------- -- JORGE LUIS MARCIA MEDEL JULIA 02/25 Released with Work/Duty Limitations [facility] [place] [address](A FNG 104 Med Sq-FM) [place] [address](AFN G 104 Med Sq-FM) OUTPATIENT [id number] Notes Entered by: SARAH MCPHERSON 24 Apr 2021 1402 ------- ------- ------- ------- -- [facility] Baig 04/24 [facility] with Work/Duty Limitations [facility] [place] [address](A FNG 104 Med Sq-FM) [place] [address](AFN G 104 Med Sq-FM) TELE CONSULT [id number] MARCIA MEDEL JULIA 09/24 [place] [address](A FNG 104 Med Sq-FM) [place] [address](AFN G 104 Med Sq-FM) TELE CONSULT [id number] MARCIA MEDEL JULIA 10/22 [facility] [place] [address](A FNG 104 Med Sq-FM) [place] [address](AFN G 104 Med Sq-FM) TELE CONSULT [id number] MARCIA MEDEL JULIA 01/15 [place] [address](A FNG 104 Med Sq-FM) [place] [address](AFN G 104 Med Sq-FM) TELE CONSULT [id number] 5 MARCIA MEDEL JULIA 03/13 [facility] [place] [address](A FNG 104 Med Sq-FM) [place] [address](AFN G 104 Med Sq-FM) OUTPATIENT [id number] Notes Entered by: MARCIA MEDEL 17 Mar 2022 1610 ------- ------- ------- ------- -- JORGE LUIS MEDEL MARCIA DUMONT 03/17 Released with Work/Duty Limitations [facility] [place] [address](A FNG 104 Med Sq-FM) [place] [address](AFN G 104 Med Sq-FM) OUTPATIENT [id number] Notes Entered by: MALVIN HARTLEY 16 Apr 2022 1641 ------- ------- ------- ------- -- JORGE LUIS benz KEKE SNYDER 04/16 Released w/o Limitations [facility] [place] [address](A FNG 104 Med -) [facility] Outpatient Encounter [id number] 04/08 [facility] [id number] MDG Between Visit [id number] 04/20 Discharge Disposition: Home or Self Care [id number] MDG [facility] Outpatient Encounter [id number] 09/04 [facility] Out[facility] Encounter [id number] 03/02 [facility] OFFICE O/P NEW MOD 45 MIN [id number] Diagnos is: ICD-10- CM I10 Essenti al (primar y) hyperte GERARD Fortune 03/02 [facility] Outpatient Encounter [id number] 03/02 [facility] CASE MANAGEMENT [id number] Diagnos is: ICD-10- CM Z71.89 Other specifi ed dianetic counselor JOY Contreras 03/03 [facility] Out[facility] Encounter [id number] 03/07 [facility] Out[facility] Encounter [id number] 03/10 [facility] Out[facility]counter [id number] 03/10 [facility] Out[facility] Encounter [id number] 03/13 [facility] CASE MANAGEMENT [id number] Diagnos is: ICD-10- CM Z71.89 Other specifi ed dianetic counselor JOY Contreras 03/20 [facility] Procedures Combined list of: 1) Procedures from Department of Veterans Affairs facilities going back up to thelast 18 months, not all [place] non-surgical procedures are included; 2) All procedures [...] COST TO PHYSICIAN OR OTHER QUALIFIED HEALTH LOG RAFTER 2003 DoD SCREENING TEST, PURE TONE, AIR ONLY 2013 DoD NEUROPSYCHOLOGICAL TESTING (EG, [place] CARD SORTING TEST), ADMINISTERED BY A COMPUTER, WITH QUALIFIED HEALTH LOG RAFTER INTERPRETATION AND REPORT 2012 DoD PURE TONE [...] PURE TONE AUDIOMETRY (THRESHOLD); AIR ONLY 2006 [facility] THERAPEUTIC PROCEDURE, 1 OR MORE AREAS, EACH 15 MINUTES; THERAPEUTIC EXERCISES TO DEVELOP STRENGTH AND ENDURANCE, RANGE OF MOTION AND FLEXIBILITY 2005 [facility] THERAPEUTIC PROCEDURE, 1 OR MORE AREAS, EACH 15 MINUTES; THERAPEUTIC EXERCISES TO DEVELOP STRENGTH AND ENDURANCE, RANGE OF MOTION AND FLEXIBILITY 2005 [facility] VIS FUNCT SCREEN,AUTOMAT/SEMI- AUTOMAT BILAT QUANT DETERM VISUAL ACUITY,OCULAR ALIGN,COLOR VISION,PSEUDOISOCHRO MAT PLATES,& FIELD VIS (MAY INC ALL/SOME SCRN DETERM FOR CONTRAST SENSITIV,VIS UND GLARE) 2005 [facility] SCREENING TEST OF VISUAL ACUITY, QUANTITATIVE, BILATERAL 2005 [facility] INFLUENZA VIRUS VACCINE, TRIVALENT, LIVE (LAIV3), FOR INTRANASAL USE 2004 [facility] SCREENING TEST OF VISUAL ACUITY, QUANTITATIVE, BILATERAL 2003 [facility] Spirometry Spirometry 82009 2013 SARAH JONES [facility] Audiogram (Screening) Audiogram (Screening) 57099 2013 SARAH JONES [facility] Psychometric Neuropsych Testing Battery Admin By Computer Psychometric Neuropsych Testing Battery Admin By Computer 20882 2012 ABHISHEK MAS [facility] Threshold Audiogram (Pure Tone) Threshold Audiogram (Pure Tone) 04833 2012 BEVERLY BATES [facility] Pulmonary Function Tests Pulmonary Function Tests 08171 2012 BEVERLY BATES IV Infusion For Hydration Each Additional Hour IV Infusion For Hydration Each Additional Hour 22755 2012 DJEA LEOS IV Infusion For Hydration 31 Minutes To 1 Hour IV Infusion For Hydration 31 Minutes To 1 Hour 23052 2012 DEJA LEOS Intravenous Catheter Placement Intravenous Catheter Placement 88679 2012 DEJA LEOS [facility] Physical Therapy Service Re-Evaluation Physical Therapy Service Re-Evaluation 27020 2011 SUMIT ROSEN [facility] Modalities Heat Hot Packs Modalities Heat Hot Packs 47904 2011 MARCIALLUIS MARCUS [facility] Physical Therapy Neuromuscular Re-education Physical Therapy Neuromuscular Re-education 86814 2011 MARCIALLUIS MARCUS Physical Therapy: ___ Se ion Segments, 15 Minutes Each Physical Therapy: ___ Session Segments, 15 Minutes Each 54893 2011 MARCIAL, LUIS DoD Modalities Heat Hot Packs Modalities Heat Hot Packs 53837 2011 BRISA GONZALEZ [facility] Physical Therapy Neuromuscular Re-education Physical Therapy Neuromuscular Re-education 28458 2011 BRISA GONZALEZ [facility] Physical Therapy: ___ Se ion Segments, 15 Minutes Each Physical Therapy: ___ Session Segments, 15 Minutes Each 23483 2011 BRISA GONZALEZ DoD Modalities Heat Hot Packs Modalities Heat Hot Packs 51818 2011 NATALIIA GUERIN Physical Therapy Neuromuscular Re-education Physical Therapy Neuromuscular Re-education 59678 2011 NATALIIA GUERIN Physical Therapy: ___ Se ion Segments, 15 Minutes Each Physical Therapy: ___ Session Segments, 15 Minutes Each 28044 2011 NATALIIA GUERIN Modalities Heat Hot Packs Modalities Heat Hot Packs 67153 2011 MARCIAL, LUIS DoD Physical Therapy: ___ Se ion Segments, 15 Minutes Each Physical Therapy: ___ Session Segments, 15 Minutes Each 30748 2011 MARCIAL, LUIS DoD Physical Therapy Neuromuscular Re-education Physical Therapy Neuromuscular Re-education 97863 2011 MARCIAL, LUIS DoD Modalities Heat Hot Packs Modalities Heat Hot Packs 24964 2010 MARCIAL, LUIS DoD Physical Therapy Neuromuscular Re-education Physical Therapy Neuromuscular Re-education 76133 2010 MARCIAL, LUIS DoD Physical Therapy: ___ Se ion Segments, 15 Minutes Each Physical Therapy: ___ Session Segments, 15 Minutes Each 99249 2010 MARCIAL, LUIS DoD Physical Therapy Service Re-Evaluation Physical Therapy Service Re-Evaluation 57247 2010 SUMIT ROSEN E DoD Physical Therapy Neuromuscular Re-education Physical Therapy Neuromuscular Re-education 63536 2010 MARCIAL, LUIS DoD Modalities Heat Hot Packs Modalities Heat Hot Packs 76332 2010 MARCIAL, LUIS DoD Physical Therapy: ___ Se ion Segments, 15 Minutes Each Physical Therapy: ___ Session Segments, 15 Minutes Each 55980 2010 MARCIAL, LUIS DoD Modalities Heat Hot Packs Modalities Heat Hot Packs 11327 2010 MARCIAL, LUIS DoD Physical Therapy: ___ Se ion Segments, 15 Minutes Each Physical Therapy: ___ Session Segments, 15 Minutes Each 78271 2010 MARCIAL, LUIS DoD Physical Therapy Neuromuscular Re-education Physical Therapy Neuromuscular Re-education 90473 2010 MARCIAL, LUIS DoD Physical Therapy Neuromuscular Re-education Physical Therapy Neuromuscular Re-education 14173 2010 MARCIAL, LUIS DoD Modalities Heat Hot Packs Modalities Heat Hot Packs 95826 2010 MARCIAL, LUIS DoD Physical Therapy: ___ Se ion Segments, 15 Minutes Each Physical Therapy: ___ Session Segments, 15 Minutes Each 85253 2010 MARCIAL, LUIS DoD Modalities Heat Hot Packs Modalities Heat Hot Packs 95585 2010 BRISA GONZALEZ Physical Therapy Neuromuscular Re-education Physical Therapy Neuromuscular Re-education 76565 2010 BRISA GONZALEZ Physical Therapy: ___ Se ion Segments, 15 Minutes Each Physical Therapy: ___ Session Segments, 15 Minutes Each 72960 2010 BRISA GONZALEZ Pulmonary Function Tests Pulmonary Function Tests 92400 2010 LEIGH TAYLOR [facility] Physical Therapy Service Re-Evaluation Physical Therapy Service Re-Evaluation 40658 2010 SILAS, SUMIT E DoD Modalities Heat Hot Packs Modalities Heat Hot Packs 22044 2010 BRISA GONZALEZ DoD Modalities Ultrasound Modalities Ultrasound 94632 2010 BRISA GONZALEZ DoD A isted Exercises For ROM Assisted Exercises For ROM 90952 2010 BRISA GONZALEZ DoD Modalities Heat Hot Packs Modalities Heat Hot Packs 74285 2010 MARCIAL, LUIS DoD Modalities Ultrasound Modalities Ultrasound 21044 2010 MARCIAL, LUIS DoD A isted Exercises For ROM Assisted [place]ercises [place] ROM 68951 2010 MARCIAL, LUIS DoD Modalities Ultrasound Modalities Ultrasound 97152 2010 NATALIIA GUERIN A DoD Modalities Heat Hot Packs Modalities Heat Hot Packs 91209 2010 NATALIIA GUERIN A isted Exercises For ROM Assisted [place] 64874 2010 NATALIIA GUERIN DoD Modalities Heat Hot Packs Modalities Heat Hot Packs 37196 2010 MARCIAL, LUIS DoD Modalities Ultrasound Modalities Ultrasound 12835 2010 MARCIAL, LUIS DoD A isted Exercises For ROM Assisted [place] 96208 2010 MARCIAL, LUIS DoD Physical Therapy Service Evaluation Physical Therapy Service Evaluation 83758 2010 SUMIT ROSEN [place] Pulmonary Function Tests Pulmonary Function Tests 89741 2009 STERLING GEE Threshold Audiogram (Pure Tone) Threshold Audiogram (Pure Tone) 03635 2009 STERLING GEE DoD Audiogram (Screening) Audiogram (Screening) 47808 2009 RAMILA DAMIAN Non-Physician Phone Call To Patient/Provider Brief (5-10min) Non-Physician Phone Call To Patient/Provider Brief (5-10min) 80954 2009 JONEL BUSBY Culture, bacterial, urine; quantitative, sensitivity study 2008 BRISA AHUJA strep swab done [facility] Threshold Audiogram (Pure Tone) Threshold Audiogram (Pure Tone) 54200 2008 JUANJO CLEARY Threshold Audiogram (Pure Tone) Threshold Audiogram (Pure Tone) 64043 2007 MARYANNE SANTOS Services Provided On An Emergency Basis In The Office 2006 JAIME LAIRD Services Provided On An Emergency Basis In The Office 2006 LATIA CARVAJAL Ophthalmological New Patient Start Intermediate Level Care Ophthalmological New Patient Start Intermediate Level Care 00345 2006 LATIA CARVAJAL Threshold Audiogram (Pure Tone) Threshold Audiogram (Pure Tone) 32641 2006 MARYANNE SANTOS Threshold Audiogram (Pure Tone) Threshold Audiogram (Pure Tone) 09022 KEKE SNYDER No data available for this section Ambulato ry Pharmacy Social History Combined list of available smoking, tobacco, and other social history from 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 Social History Type Response Date Comment Sourc e Tobacco smoking status NHIS [place]-TOBACCO USE FORMER CIGARETTES 03/02/2024 [facility] History of tobacco use [facility]-TOBACCO NEVER USED OTHER TYPE 03/02/2024 [facility] This section is an empty social history section. [facility] Assessment and Plan Combined list of [...] AMBULATORY - MEDICINE [facility]ULAT[facility] - MEDICINE 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 Assessment Date/Time Source Assessment Type Assessment Skill Assessment Score Assessment Details No data available for this section
== END 2024-03-27 15:17 | disposition home or self-care (01) ==
PROVIDERS: PCP Nurse Practitioner Family
DX: S52.041A Displaced fracture of coronoid process of right ulna, initial encounter for closed fracture (principal); M77.11 Lateral epicondylitis, right elbow
CPT/HCPCS: 99203

== ENCOUNTER → 2024-03-27 14:29 | Outpatient (BNV) | payer OTHER, SELFPAY | PROVIDERS: Visit Provider Radiology Diagnostic Radiology | DX: M25.521 Pain in right elbow (principal) | CPT/HCPCS: 73080 ==

== ENCOUNTER 2024-03-29 08:49 | Outpatient (AMB) | payer OTHER, SELFPAY ==
--- NOTE | 2024-03-29 08:51 | MHC.OFFVIS ---
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 Espinoza for Ventral hernia. Present for 2wks. Patient c/o:abdominal pain, nausea. Denies diarrhea, constipation. Insurance Claims Supervisor Required: No Accompanied by: Self / Same As Patient Allergies No Known Allergies [No Known Allergies*] Allergy (Verified 03/29/24 08:57) HPI Comments Details: Patient was presents with a proximally 1 month history of symptomatic umbilical hernia. He was doing strenuous activities that was placed on employment where he sustained a pain and swelling at the belly button. Workup including sonogram confirms the hernia. Patient otherwise is tolerating a diet. He is having regular bowel habits. As noted above, he does strenuous activities at his place of employment. Chart was reviewed and patient evaluated [facility] Medical History Tubular adenoma of colon GERD (gastroesophageal reflux disease) Anxiety with depression PTSD (post-traumatic stress disorder) Lumbar stenosis HTN (hypertension) Sleep apnea Hypogonadism in male BPH (benign prostatic hyperplasia) Renal calculi CKD (chronic kidney disease) Right foot pain Surgical History (Updated 03/29/24 @ 09:32 by Jose Briceño MD) Status post right rotator cuff repair Status post right foot surgery Family History Father No problems noted. Mother No problems noted. 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 Bilateral groin exam negative. Genitalia within normal limits. Patient has a corpulent abdomen. He has a roughly 2 cm irreducible umbilical hernia. Assessment & Plan Assessment & Plan (1) Incarcerated umbilical hernia: Code(s): K42.0 - Umbilical hernia with obstruction, without gangrene Category: Surgical Plan Patient wishes to undergo repair of this. Risks, benefits, alternatives of open umbilical hernia repair with mesh were reviewed with the patient and included but not limited to bleeding, infection, recurrence, numbness, pain, scarring, bowel injury and the patient wishes to proceed. All questions answered. Arrangements will be made for this on a day which is convenient for him. Coding Level of Care Code New Pt Level 5 (49589) Diagnoses Incarcerated umbilical hernia K42.0
[2024-03-29 09:00] VITALS: BP 152/102; PULSE 96; BMI 34.7
--- OUTSIDE RECORDS SUMMARY | 2024-03-29 09:42 | XMS_ITS | Clinical Summary ---
Author Organization [address] [facility] Address [address] [place] [address] Phone Care Team Providers Care Home Care Chaplain Name Role Phone Elmo Moreno NP Primary Care Provider Allergies No known active allergies Medications albuterol HFA (PROAIR HFA ; PROVENTIL HFA ; VENTOLIN HFA) 90 mcg/actuation inhaler INHALE 2 PUFFS BY MOUTH EVERY 6 HOURS NEEDED 022 Active syringe with needle, safety 1 mL 25 gauge x 5/8 syringe BD Disp Ovid 25G X 5/8 Misc USE DIRECTED WEEKLY [...] Care Team Description 03/27/2024 11:30 AM EST - 03/27/2024 11:59 PM EST Hospital Encounter Radiology Department - [address] [address] Low back pain radiating to right leg Discharge Disposition: Home or Self Care 03/20/2024 10:15 AM EST Office Visit Neurosurgery [facility] [address] [place] [address] Mally John PA Sacroiliitis (CMS/HCC) (Primary Dx); Low back pain radiating to right leg 03/13/2024 Telephone [facility] [address] [place] [address] Allison Euceda MA from Last [...] on patient's age to complete this topic Procedures Procedure Name Priority Date/Time Associated Diagnosis Comments MR LUMBAR SPINE WO CONTRAST Routine 03/27/2024 12:14 PM EST Low back pain radiating to right leg from Last 3 Months Results * MR Lumbar Spine wo Contrast (03/27/2024 12:14 PM EST) Anatomical Region Laterality Modality L-spine, Spine Magnetic Resonan ce 03/27/2024 3:44 PM EST Narrative 03/27/2024 3:51 PM EST MRI of the lumbar spine without intravenous contrast. History right low back posterior neck pain. Examination was performed on 1.5 Hailee magnet without administration of intravenous contrast. Comparison with previous examination from 05/12/2021. Vertebral bodies are maintained in height. Conus medullaris terminates at L1-2 level. T12-L1, L1-2 levels are unremarkable. At L2-3 level there is mild diffuse bulging of the disc. No focal disc herniation spinal stenosis or nerve root compression. At L3-4 level there is mild diffuse bulging of the disc. No focal disc herniation, spinal stenosis or nerve root compression. At L4-5 level there is a tear of the annulus fibrosis on the left. There is diffuse bulging of the disc and broadbase left lateral protrusion. Disc material compresses of the left L4 nerve root. There is also narrowing of the right L4 neural foramen and effacement of the right L4 nerve root. Again noted is moderate spinal stenosis due to discogenic degenerative changes, hypertrophy of the facet joints and ligamentum flavum. At L5-S1 level there is mild diffuse bulging of the disc. Disc material abuts the S1 nerve roots within the lateral recesses. There is no focal disc herniation or spinal stenosis. There is effacement of the L5 nerve roots. Perivertebral soft tissues are unremarkable. When compared with previous examination there is are interval progression of the degenerative changes at L4-5 and L5-S1 levels. CONCLUSIONS: Multilevel bony and discs degenerative changes with interval progression at L4-5 and L5-S1 levels. Moderate spinal stenosis at L4-5 level. Tear of the annulus fibrosis on the left and broadbase left lateral protrusion of the L4-5 disc. There is compression of the left L4 nerve root. There is effacement of the right L4 nerve root. Degenerative changes at L5-S1 level as detailed with effacement of the S1 nerve roots within the lateral recesses and L5 nerve roots within the neural foramina. Please see details in the report. -------- FINAL REPORT -------- Dictated By: Milagro Cervantes Dictated Date: 03/27/2024 15:44 ET Assigned Physician: Milagro Cervantes Reviewed and Electronically Signed By: Milagro Cervantes Signed Date: 03/27/2024 15:51 ET Workstation ID: [id number] Transcribed By: Self Edit Transcribed Date: 03/27/2024 15:44 ET Procedure Note Milagro Cervantes MD - 03/27/2024 MRI of the lumbar spine without intravenous contrast. History right low back posterior neck pain. Examination was performed on 1.5 Hailee magnet without administration ofintravenous contrast. Comparison with previous examination from05/12/2021. Vertebral bodies are maintained in height. Conus medullaristerminates at L1-2 level. T12-L1, L1-2 levels are unremarkable. At L2-3 level there is mild diffusebulging of the disc. No focal disc herniation spinal stenosis or nerveroot compression. At L3-4 level there is mild diffuse bulging of the disc. No focal discherniation, spinal stenosis or nerve root compression. At L4-5 level there is a tear of the annulus fibrosis on the left. Thereis diffuse bulging of the disc and broadbase left lateral protrusion. Discmaterial compresses of the left L4 nerve root. There is also narrowing ofthe right L4 neural foramen and effacement of the right L4 nerve root.Again noted is moderate spinal stenosis due to discogenic degenerativechanges, hypertrophy of the facet joints and ligamentum flavum. At L5-S1 level there is mild diffuse bulging of the disc. Disc materialabuts the S1 nerve roots within the lateral recesses. There is no focaldisc herniation or spinal stenosis. There is effacement of the L5 nerveroots. Perivertebral soft tissues are unremarkable. When compared with previous examination there is are interval progressionof the degenerative changes at L4-5 and L5-S1 levels. CONCLUSIONS: Multilevel bony and discs degenerative changes with intervalprogression at L4-5 and L5-S1 levels. Moderate spinal stenosis at L4-5level. Tear of the annulus fibrosis on the left and broadbase left lateralprotrusion of the L4-5 disc. There is compression of the left L4 nerveroot. There is effacement of the right L4 nerve root. Degenerative changesat L5-S1 level as detailed with effacement of the S1 nerve roots withinthe lateral recesses and L5 nerve roots within the neural foramina. Pleasesee details in the report. -------- FINAL REPORT -------- Dictated By: Milagro Cervantes Dictated Date: 03/27/2024 15:44 ET Assigned Physician: Milagro Cervantes Reviewed and Electronically Signed By: Milagro Cervantes Signed Date: 03/27/2024 15:51 ET Workstation ID: [id number] Transcribed By: Self Edit Transcribed Date: 03/27/2024 15:44 ET us Mally QUIÑONEZ IMG MRI PROCEDURES Final R esult from Last 3 Months Insurance [employer] Care Teams Home Care Chaplain Relationship Specialty Start Date End Date Elmo Moreno NP [address] [facility] [place] PCP - General 05/15/22
--- OUTSIDE RECORDS SUMMARY | 2024-03-29 09:42 | XMS_ITS | Clinical Summary ---
Author Organization [facility] Address [address] [place] [id number] Care Team Providers Care Fountain Vending Mechanic Name Role Phone Unavailable Primary Care Provider [...]
--- OUTSIDE RECORDS SUMMARY | 2024-03-29 09:42 | XMS_ITS | Clinical Summary ---
Author Organization [facility] Address [address] [place] [address] Care Team Providers Care Classification Analyst Name Role Phone Elmo Moreno Primary Care Provider [phone] Allergies No known active allergies Medications Medication [...] Advance Directives For more information, please contact: [phone] Latest Code Status on File Code Status Date Activated Date Inactivated Comments Full Code 03/18/2020 12:11 PM 03/18/2020 9:28 PM This c ode status was ascertained in the following way: discussion with patient . Care Teams Classification Analyst Relationship Specialty Start Date End Date Elmo Moreno: [id number] [address] [facility] [place] [address] PCP - General Family Medicine 03/07/20
--- OUTSIDE RECORDS SUMMARY | 2024-03-29 09:42 | XMS_ITS | Encounter Summary ---
Author Organization [facility] Address [address] [place] [address] Care Team Providers Care Defensive Driving Instructor Name Role Phone Elmo Moreno NP Primary Care Provider + [phone] Reason for Referral * Imaging (Routine) - Authorized Specialty Diagnoses / Procedures Referred By Contac t Referred To Contact Radiology Diagnoses Low back pain radiating to right leg Procedures MR Lumbar Spine wo Contrast Mally John PA [address] Phone: tel: fax: Radiology Department [address] Phone: tel: fax: Referral ID Status Reason Start Date Expiration Date V isits Requested Visits Authorized [id number] Authorized 03/20/2024 03/20/2025 1 1 Reason for Visit * Imaging (Routine) - Authorized Specialty Diagnoses / Procedures Referred By Contac t Referred To Contact Radiology Diagnoses Low back pain radiating to right leg Procedures MR Lumbar Spine wo Contrast Mally John PA [address] [place] [address], [address] Phone: tel: fax: Radiology Department - [address] Phone: tel: fax: Referral ID Status Reason Start Date Expiration Date V isits Requested Visits Authorized [id number] Authorized 03/20/2024 03/20/2025 1 1 Encounter Details Date Type Department Care Team (Latest Contact Info) Description 03/27/2024 11:30 AM EST - 03/27/2024 11:59 PM EST Hospital Encounter Radiology Department - [address] [address] Low back pain radiating to right leg Discharge Disposition: Home or Self Care Social History Tobacco Use Types Packs/Day Years Used Date Smoking Tobacco: Never Smokeless Tobacco: Never Sex and Gender Information Value Date Recorded Sex Assigned at Not on file Legal Sex Male 7:57 PM EST Gender Identity Not on file Sexual Orientation Not on file documented as of this encounter Medications at Time of Discharge albuterol HFA (PROAIR HFA ; PROVENTIL HFA ; VENTOLIN HFA) 90 mcg/actuation inhaler INHALE 2 PUFFS BY MOUTH EVERY 6 HOURS NEEDED 05/25/2021 lidocaine (LIDODERM) 5 % patch Apply topically 1 (one) time each day. Remove & discard patch within 12 hours or as directed by . 30 patch 1 03/20/2024 losartan-hydroC HLOROthiazide (HYZAAR) 100-12.5 mg per tablet Take 1 Tablet by mouth. 07/29/2021 omeprazole (PriLOSEC) [address] capsule 02/24/2024 syringe with needle, safety 1 mL 25 gauge x 5/8 syringe BD Disp Stilwell 25G X 5/8 Misc USE DIRECTED WEEKLY FOR TESTOSTERONE SUBCUTANEOUS INJECTION 07/26/2022 syringe, disposable, 1 mL (BD LUER-SHRUTHI SYRINGE MISC) B-D SYRINGE LUER-SHRUTHI 1CC 1 ML Misc USE DIRECTED WITH TESTOSTERONE INJECTION WEEKLY 07/22/2021 tadalafiL (CIALIS) 20 mg tablet TAKE 1 TABLET NEEDED FOR SEXUAL ACTIVITY 03/09/2024 testosterone cypionate (DEPO-TESTOTERO NE) 200 mg/mL injection INJECT 0.4 ML SUBCUTANEOUSLY EVERY WEEK FOR 4 WEEKS 07/26/2021 documented as of this encounter Discharge Disposition Disposition Code Departure Means Destination Home or Self Care documented in this encounter Plan of Treatment Not on file documented as of this encounter Procedures Procedure Name Priority Date/Time Associated Diagnosis Comments MR LUMBAR SPINE WO CONTRAST Routine 03/27/2024 12:14 PM EST Low back pain radiating to right leg documented in this encounter Results * MR Lumbar Spine wo Contrast [...] Signed Date: 03/27/2024 15:51 ET Workstation ID: [id number] Transcribed By: Self Edit Transcribed Date: 03/27/2024 [...] Signed Date: 03/27/2024 15:51 ET Workstation ID: [id number] Transcribed By: Self Edit Transcribed Date: 03/27/2024 15:44 ET us Mally QUIÑONEZ IMG MRI PROCEDURES Final R esult documented in this encounter Visit Diagnoses Diagnosis Low back pain radiating to right leg Lumbago documented in this encounter Care Teams Defensive Driving Instructor Relationship Specialty Start Date End Date Elmo Moreno NP [address] [place], [place] PCP - General 05/15/22 documented as of this encounter
--- OUTSIDE RECORDS SUMMARY | 2024-03-29 09:42 | XMS_ITS | Encounter Summary ---
Author Organization [facility] Address [address] [place] [address] Care Team Providers Care Graphite Disk Assembler Name Role Phone Elmo Moreno NP Primary Care Provider Encounter Details Date Type Department Care Team (Late st Contact Info) Description 03/13/[address] [place] [address] Allison Euceda MA Social History [...] on filedocumented in this encounter Care Teams Graphite Disk Assembler Relationship Specialty Start Date End Date Elmo Moreno NP [address] [facility] [place] C[place] PCP - General 05/15/22 documented as of this encounter
--- OUTSIDE RECORDS SUMMARY | 2024-03-29 09:42 | XMS_ITS | Encounter Summary ---
Author Organization [facility] Address [address] [place] [address] Care Team Providers Care Information Clerk Name Role Phone Sterilng Moreno NP Primary Care Provider + [phone] Reason for Referral * Imaging (Routine) - Authorized Specialty Diagnoses / Procedures Referred By Contac t Referred To Contact Radiology Diagnoses Low back pain radiating to right leg Procedures MR Lumbar Spine wo Contrast Mally John PA [address] [facility], [address] [address] Phone: tel: fax: Radiology Department [address] Phone: tel: fax: Referral ID Status Reason Start Date Expiration Date V isits Requested Visits Authorized [id number] Authorized 03/20/2024 03/20/2025 1 1 * Imaging (Routine) - Authorized Specialty Diagnoses / Procedures Referred By Contac t Referred To Contact Radiology Diagnoses Sacroiliitis (CMS/HCC) Procedures IR Inj Anes/Steroid Nerve Sacroiliac Joint Right Mally John PA 175 [facility], [address] [place] [address] Phone: tel: fax: [facility] Interventional Radiology [address] [place] [address] Phone: tel: Referral ID Status Reason Start Date Expiration Date V isits Requested Visits Authorized [id number] Authorized 03/20/2024 03/20/2025 1 1 Reason for Visit * Reason Comments Sacral Iliac Joint Pain Eval for possibl e repeat injection Encounter Details Date Type Department Care Team (Late st Contact Info) Description 03/20/2024 10:15 AM EST Office Visit Neurosurgery [facility] [address] [facility] [address] [place] [address] Mally John PA [address] [facility], [address] [place] [address] Sacroiliitis (CMS/HCC) (Primary Dx); Low back pain [...] 25 gauge x 5/8 syringe BD Disp Byers 25G X 5/8 Misc
USE DIRECTED WEEKLY [...] PM EST [facility] Neurosurgical [place] documented in this encounter Plan of Treatment Scheduled Orders Name Type Priority Associated Diagnoses Orde r Schedule IR Inj Anes/Steroid Nerve Sacroiliac Joint Right Imaging Routine Sacroiliitis (CMS/HCC) Expected: 03/20/2024, Expires: 03/20/2025 documented as of this encounter Results * MR Lumbar Spine [...] Signed Date: 03/27/2024 15:51 ET Workstation ID: [id number] Transcribed By: Self Edit Transcribed Date: 03/27/2024 [...] Signed Date: 03/27/2024 15:51 ET Workstation ID: [id number] Transcribed By: Self Edit Transcribed Date: 03/27/2024 15:44 ET us Mally QUIÑONEZ IMG MRI PROCEDURES Final R esult documented in this encounter Visit Diagnoses Diagnosis Sacroiliitis (CMS/HCC)- Primary Sacroiliitis, not elsewhere classified Low back pain radiating to right leg Lumbago Low back pain radiating to right leg [...] 03/20/2024 added in this encounter Care Teams Information Clerk Relationship Specialty Start Date End Date Sterling Moreno NP [address] [place], [place] PCP - General 05/15/22 documented as of this encounter
== END 2024-03-29 09:30 | disposition home or self-care (01) ==
PROVIDERS: PCP Nurse Practitioner Family; Referring Provider Internal Medicine; Visit Provider Surgery
DX: K42.0 Umbilical hernia with obstruction, without gangrene (principal)
CPT/HCPCS: 99204

== ENCOUNTER → 2024-03-29 08:49 | Outpatient (BNVA) | payer OTHER, SELFPAY | PROVIDERS: PCP Nurse Practitioner Family; Referring Provider Internal Medicine; Visit Provider Surgery | DX: K42.0 Umbilical hernia with obstruction, without gangrene (principal) | CPT/HCPCS: 99202 ==

== ENCOUNTER 2024-03-31 15:20 | Outpatient (AMB) | payer OTHER, SELFPAY ==
--- OUTSIDE RECORDS SUMMARY | 2024-03-31 15:23 | XMS_ITS | Encounter Summary ---
Author Organization [facility] Address [address] [place] [address] Care Team Providers Care Gusset Edger Name Role Phone Elmo Moreno NP Primary Care Provider + [phone] Reason for Referral * Imaging (Routine) - Authorized Specialty Diagnoses / Procedures Referred By Contac t Referred To Contact Radiology Diagnoses Low back pain radiating to right leg Procedures MR Lumbar Spine wo Contrast Mally John PA [address] Phone: tel: fax: Radiology Department [address] Phone: tel: fax: Referral ID Status Reason Start Date Expiration Date V isits Requested Visits Authorized [id number] Authorized 03/20/2024 03/20/2025 1 1 Reason for Visit * Imaging (Routine) - Authorized Specialty Diagnoses / Procedures Referred By Contac t Referred To Contact Radiology Diagnoses Low back pain radiating to right leg Procedures MR Lumbar Spine wo Contrast Mally John PA [address] [place] [address], [address] Phone: tel: fax: Radiology Department - [address] Phone: tel: fax: Referral ID Status Reason Start Date Expiration Date V isits Requested Visits Authorized [id number] Authorized 03/20/2024 03/20/2025 1 1 Encounter Details Date Type Department Care Team (Latest Contact Info) Description 03/27/2024 11:30 AM EST - 03/27/2024 11:59 PM EST Hospital Encounter Radiology Department - [address] [address] Low back pain radiating to right leg [...] 25 gauge x 5/8 syringe BD Disp [place] 25G X 5/8 Misc USE DIRECTED WEEKLY [...] Signed Date: 03/27/2024 15:51 ET Workstation ID: [id number] Transcribed By: Self Edit Transcribed Date: 03/27/2024 [...] Signed Date: 03/27/2024 15:51 ET Workstation ID: [id number] Transcribed By: Self Edit Transcribed Date: 03/27/2024 15:44 ET us Mally QUIÑONEZ IMG MRI PROCEDURES Final R esult documented in this encounter Visit Diagnoses Diagnosis Low back pain radiating to right leg Lumbago documented in this encounter Care Teams Gusset Edger Relationship Specialty Start Date End Date Elmo Moreno NP [address] [place], [place] PCP - General 05/15/22 documented as of this encounter
--- OUTSIDE RECORDS SUMMARY | 2024-03-31 15:23 | XMS_ITS | Encounter Summary ---
Author Name [facility] Address [address] [place] [address] Care Team Providers Care Quality Assurance Group Leader Name Role Phone ELENA RODRIGUEZ Primary Care [...] PRESCRIPT ION RX Feb 15, 2022 THPRX [id number] GUY MARY PATIENT [employer] HARVEY Gutierrez June 22, 2023 [id number] 52 USMANGUY GARCIAM PATIENT Selected Encounter This section includes the information on record at [place] for the Encounter. Date/Time Encounter Type Encounter Description Reason Pro vider Source Mar 29, 2024 10:15 AM Outpatient Encounter ADMIN PAT ACTIVTIES (MASNONCT) IHE Encounter Template Text not used by [place] Plan of Treatment: Future Appointments (+ 6 months) and Future Tests (+/- 45 days) The Plan of Treatment section includes future care activities for the patient from all [place] treatmentfacilities. This section includes future appointments and future orders which are active, pending or scheduled. Future Appointments This section includes appointments that were scheduled to occur 6 months from the date of the Encounter, up to a maximum of 20 appointments. The data comes from all [place] treatment facilities. Appointment Date/Time Appointment Type Appointme nt Facility Name May 29, 2024 10:30 AM [facility] Active, Pending, and Scheduled Orders This section includes a listing of several types of active, pending, and scheduled orders, including clinic medications orders, diagnostic test orders, procedure orders and consult orders; where the start date of the order is 45 days before the date of the Encounter or 45 days after the date of theEncounter. The data comes from all [place] treatment facilities. Test Date/Time Test Type Test Details Facility Name Mar 16, 2024 10:01 AM Consult Order [facility] GENER[facility] Cons Jet Mechanic's Choice [facility] Social History: Smoking Status (Most current) and Tobacco Use (All prior to encounter date) This section includes the most current, and the historical, smoking and tobacco- related health factors from the [place] facility where the Encounter took place. Current Smoking Status This section includes the most current smoking, or tobacco-related health factor, from the [place] facility where the Encounter took place. Date/Time Current Smoking Status Comment Lukasz itrosi Mar 02, 2024 03:30 PM VA-TOBACCO USE FOR SUNG CIGARETTES [facility] Tobacco Use History This section includes a history of the smoking, or tobacco-related health factors, that were collected on or before the date of the Encounter. The data comes from the [place] facility where the Encounter took place. Date/Time Smoking Status/Tobacco Use Comment F arunbrooke Mar 02, 2024 03:30 PM VA-TOBACCO USE FOR SUNG CIGARETTES [facility] Encounter Notes: All associated encounter notes This section contains the clinical notes associated to the Encounter. Date/Time Encounter Note(s) Provider Source Mar 29, 2024 10:45 AM ADDENDUM: LOCAL TITLE: Addendum STANDARD TITLE: ADDENDUM DATE OF NOTE: MAR 29, 2024@10:45:58 ENTRY DATE: MAR 29, 2024@10:45:58 AUTHOR: ALEXANDER HOWARD COSIGNER: URGENCY: STATUS: COMPLETED states went to Urgent care on [address] [place] [facility] [place] told he has an umbilical Hernia denies problems with moving bowels nausea or vomiting, states has pain with pulling lifting etc. Was seen in urgent care by Dr Navarro Garcia who stated needs surgical repair is awaiting scheduled date, would like surgical consult from [facility]. Will obtain records from and Dr Garcia's office /abisai/ ALEXANDER HOWARD LPN Signed: 03/29/2024 10:51 Receipt Acknowledged By: 03/29/2024 14:03 /abisai/ JAC MEYERS, RN REGISTERED NURSE * AWAITING SIGNATURE * ELENA RODRIGUEZ === --- Original Document --- 03/29/24 CCC: SCHEDULING ADMINISTRATION: Patient Demographics Patient Name: ELENA MARY Patient Primary Phone: [phone] Patient Primary [address]: [address] [place] [address] Patient : 1980 Patient Age: 43 Call Back Number: [phone] Caller/Recipient Relation to Patient: Self Caller Name: ELENA MARY Administrative Administrative Note Reason: Other Administrative Note Comments: pt is asking for a call in ref to hernia surgery please call to discuss IMPORTANT: This note was created by [place] [facility] Clinical Contact Center staff. Please do not alert the staff member by adding them as a signer for future communications. Alerts are not monitored by this user. /abisai/ CRISTI FERNANDEZ 1 CCC AMSA Signed: 03/29/2024 10:15 Receipt Acknowledged By: 03/29/2024 11:09 /abisai/ JAC MEYERS, FRAN REGISTERED NURSE 03/29/2024 10:52 /abisai/ ALEXANDER BROWER LPN, LPN [place] [facility] Mar 29, 2024 10:15 AM ADMINISTRATIVE NOTE: LOCAL TITLE: CCC: SCHEDULING ADMINISTRATION STANDARD TITLE: ADMINISTRATIVE NOTE DATE OF NOTE: MAR 29, 2024@10:15:16 ENTRY DATE: MAR 29, 2024@10:15:16 AUTHOR: CRISTI GANNON COSIGNER: URGENCY: STATUS: COMPLETED CCC: SCHEDULING ADMINISTRATION Has ADDENDA Patient Demographics Patient Name: ELENA MARY Patient Primary Phone: [phone] Patient Primary Address: [place] [address] Patient : 1980 Patient Age: 43 Call Back Number: [phone] Caller/Recipient Relation to Patient: Self Caller Name: ELENA MARY Administrative Administrative Note Reason: Other Administrative Note Comments: pt is asking for a call in ref to hernia surgery please call to discuss IMPORTANT: This note was created by [facility] Clinical Contact Center staff. Please do not alert the staff member by adding them as a signer for future communications. Alerts are not monitored by this user. /abisai/ CRISTI FERNANDEZ 1 [facility] AMSA Signed: 03/29/2024 10:15 Receipt Acknowledged By: 03/29/2024 11:09 /abisai/ JAC MEYERS RN REGISTERED NURSE 03/29/2024 10:52 /es/ ALEXANDER HOWARD LPN 03/29/2024 ADDENDUM STATUS: COMPLETED states went to Urgent care on [address] in [facility] was told he has an umbilical Hernia denies problems with moving bowels nausea or vomiting, states has pain with pulling lifting etc. Was seen in urgent care by Dr Navarro Garcia who stated needs surgical repair is awaiting scheduled date, would like surgical consult from [facility]. Will obtain records from and Dr Garcia's office /es/ ALEXANDER HOWARD LPN Signed: 03/29/2024 10:51 Receipt Acknowledged By: * AWAITING SIGNATURE * JAC MEYERS * AWAITING SIGNATURE * ELENA RODRIGUEZ KIM [facility]
--- OUTSIDE RECORDS SUMMARY | 2024-03-31 15:23 | XMS_ITS | Encounter Summary ---
Author Organization [facility] Address [address] [place] [address] Care Team Providers Care Warble Saw Operator Name Role Phone Elmo Moreno NP Primary Care Provider Encounter Details Date Type Department Care Team (Late st Contact Info) Description 03/13/[address] [place] [address] Allison Euceda [place] Social History [...] on filedocumented in this encounter Care Teams Warble Saw Operator Relationship Specialty Start Date End Date Elmo Moreno NP 262 [facility] [place] PCP - General 05/15/22 documented as of this encounter
--- OUTSIDE RECORDS SUMMARY | 2024-03-31 15:23 | XMS_ITS | Encounter Summary ---
Author Name [facility] Organization [facility] Address [address] [place] [address] Care Team Providers Care Radiotelegraphist Name Role Phone ELENA RODRIGUEZ Primary Care [...] PRESCRIPT ION RX Feb 15, 2022 THPRX [id number] USMANGUY NICHOLS PATIENT [employer] PLAN HARVEY Gutierrez June 22, 2023 [id number] 52 USMANGUY GARCIAM PATIENT Selected Encounter This section includes the information on record at [place] for the Encounter. Date/Time Encounter Type Encounter Description Reason Provider Source Mar 27, 2024 01:54 PM CASE MANAGEMENT ADMIN PAT ACTIVTIES (MASNONCT) ICD-10-CM Z71.89 Other specified counseling JOY ISLAS [facility] Encounter Template Text not used by [place] Assessments - Encounter Diagnoses This section includes the primary and secondary diagnoses documented for the Encounter. Date/Time Primary/Secondary Diagnosis Diagnosis Name Provider Source Mar 27, 2024 01:54 PM PRIMARY Other specified counseling JOY ISLAS [facility] Plan of Treatment: Future Appointments (+ 6 months) and Future Tests (+/- 45 days) The Plan of Treatment section includes future care activities for the patient from all [place] treatmentfacilities. This section includes future appointments and future orders which are active, pending or scheduled. Future Appointments This section includes appointments that were scheduled to occur 6 months from the date of the Encounter, up to a maximum of 20 appointments. The data comes from all [facility]. Appointment Date/Time Appointment Type Appointme nt Facility Name May 29, 2024 10:30 AM AMBULATORY - MEDICINE [facility] Active, Pending, and Scheduled Orders This section includes a listing of several types of active, pending, and scheduled orders, including clinic medications orders, diagnostic test orders, procedure orders and consult orders; where the start date of the order is 45 days before the date of the Encounter or 45 days after the date of theEncounter. The data comes from all [facility]. Test Date/Time Test Type Test Details Facility Name Mar 16, 2024 10:01 AM Consult Order [facility]ARE[facility] GENERAL Cons Presser Automatic's Choice [facility] Social History: Smoking Status (Most current) and Tobacco Use (All prior to encounter date) This section includes the most current, and the historical, smoking and tobacco- related health factors from the [place] facility where the Encounter took place. Current Smoking Status This section includes the most current smoking, or tobacco-related health factor, from the [place] facility where the Encounter took place. Date/Time Current Smoking Status Comment Facil ity Mar 02, 2024 03:30 PM VA-TOBACCO USE FOR SUNG CIGARETTES [facility] Tobacco Use History This section includes a history of the smoking, or tobacco-related health factors, that were collected on or before the date of the Encounter. The data comes from the [place] facility where the Encounter took place. Date/Time Smoking Status/Tobacco Use Comment F acility Mar 02, 2024 03:30 PM VA-TOBACCO USE FOR SUNG CIGARETTES [facility] Encounter Notes: All associated encounter notes This section contains the clinical notes associated to the Encounter. Date/Time Encounter Note(s) Provider Source Mar 27, 2024 01:54 PM OEF/OIF NOTE: LOCAL TITLE: OEF/OIF TRANSITION PATIENT ADVOCATE NOTE FACE TO STANDARD TITLE: OEF/OIF NOTE DATE OF NOTE: MAR 27, 2024@13:54 ENTRY DATE: MAR 27, 2024@13:54:24 AUTHOR: JOY ISLAS EXP COSIGNER: KOROCHENKO,MODESTO URGENCY: STATUS: COMPLETED NOTE: The OEF/OIF/OND Transition Patient Advocate (TPA) is a non-clinical member of the OEF/OIF/OND Care Management Team. Type of Contact: Office visit Contact was with: Goals: Assistance with VA claim(s) application and/or status of current claim(s) Gheens came in today for a scheduled visit to discuss the his service connection disability claim. Gheens is a retired [employer] who works at [employer] but is on medical leave due to a possible surgery he needs. is 90% SC at the moment and wanted to submit a claim for PTSD, Depression and Anxiety. He also has some musculoskeletal issues that he's had since his time in the . One of the conditions is his hips. He states that his doctor is suggesting a fusion. He brought in all his paperwork to have me look over. After we looked at it he asked if I could fax it to the evidence intake center. /abisai/ JOY ISLAS Transitional Patient Advocate Signed: 03/27/2024 14:14 /abisai/ AD Apple LICENSED CLINICAL HEAD OF ADVERTISING Cosigned: 03/28/2024 12:49 [facility] ISLAS [facility]
--- OUTSIDE RECORDS SUMMARY | 2024-03-31 15:23 | XMS_ITS | Clinical Summary ---
Author Organization [facility] Address [address] [place] [address] Phone Care Team Providers Care Lumber Trimmer Name Role Phone Elmo Moreno NP Primary Care Provider Allergies No known active allergies Medications albuterol HFA (PROAIR HFA ; PROVENTIL HFA ; VENTOLIN HFA) 90 mcg/actuation inhaler INHALE 2 PUFFS BY MOUTH EVERY 6 HOURS NEEDED 022 Active syringe with needle, safety 1 mL 25 gauge x 5/8 syringe BD Disp [place] 25G X 5/8 Misc USE DIRECTED WEEKLY [...] Encounters Date Type Department Care Team Description 03/30/2024 Telephone Neurosurgery [facility] - [address] [place] [address] Mally John PA 03/27/2024 11:30 AM EST - 03/27/2024 11:59 PM [facility] Encounter Radiology Department - [address] [place] [address] Low back pain radiating to right leg Discharge Disposition: Home or Self Care 03/20/2024 10:15 AM EST Office Visit Neurosurgery [facility] [address] [address] Mally John PA Sacroiliitis (CMS/HCC) (Primary Dx); Low back pain radiating to right leg 03/13/2024 Telephone [facility] [address] [address] Allison Euceda [place] from Last 3 [...] Signed Date: 03/27/2024 15:51 ET Workstation ID: [id number] Transcribed By: Self Edit Transcribed Date: 03/27/2024 [...] Signed Date: 03/27/2024 15:51 ET Workstation ID: [id number] Transcribed By: Self Edit Transcribed Date: 03/27/2024 15:44 ET Mally QUIÑONEZ IMG MRI PROCEDURES Final R esult from Last 3 Months Insurance FAMILY HE[employer] PLAN Care Teams Lumber Trimmer Relationship Specialty Start Date End Date Elmo Moreno NP 262 [facility] AQUIL[place] Cai PCP - General 05/15/22
--- OUTSIDE RECORDS SUMMARY | 2024-03-31 15:23 | XMS_ITS ---
Author Name [facility] Organization [facility] Address [address] [place] [address] Care Team Providers Care Counter Checker Name Role Phone ELENA RODRIGUEZ Primary Care [...] PRESCRIPT ION RX Feb 15, 2022 THPRX [id number] GUY MARY PATIENT FAMILY [employer] PLAN HARVEY Gutierrez June 22, 2023 [id number] 52 USMANGUY GARCIAM PATIENT Selected Encounter This section includes the information on record at [place] for the Encounter. Date/Time Encounter Type Encounter Description Reason Pro vider Source Mar 27, 2024 03:57 PM Outpatient Encounter ADMIN PAT ACTIVTIES (MASNONCT) IHE Encounter Template Text not used by [place] Plan of Treatment: Future Appointments (+ 6 months) and Future Tests (+/- 45 days) The Plan of Treatment section includes future care activities for the patient from all [place] treatmentfacilities. This section includes future appointments and future orders which are active, pending or scheduled. Future Appointments This section includes appointments that were scheduled to occur 6 months from the date of the Encounter, up to a maximum of 20 appointments. The data comes from all [place] treatment facilities. Appointment Date/Time Appointment Type Appointme nt Facility Name May 29, 2024 10:30 AM [facility] Active, Pending, and Scheduled Orders This section includes a listing of several types of active, pending, and scheduled orders, including clinic medications orders, diagnostic test orders, procedure orders and consult orders; where the start date of the order is 45 days before the date of the Encounter or 45 days after the date of theEncounter. The data comes from all [place] treatment facilities. Test Date/Time Test Type Test Details Facility Name Mar 16, 2024 10:01 AM Consult Order [facility]ITY [facility]ARE[facility] GENERAL Cons Inseminator's Choice [facility] Social History: Smoking Status (Most current) and Tobacco Use (All prior to encounter date) This section includes the most current, and the historical, smoking and tobacco- related health factors from the [place] facility where the Encounter took place. Current Smoking Status This section includes the most current smoking, or tobacco-related health factor, from the [place] facility where the Encounter took place. Date/Time Current Smoking Status Comment Facil ity Mar 02, 2024 03:30 PM VA-TOBACCO USE FOR SUNG CIGARETTES [facility] Tobacco Use History This section includes a history of the smoking, or tobacco-related health factors, that were collected on or before the date of the Encounter. The data comes from the [place] facility where the Encounter took place. Date/Time Smoking Status/Tobacco Use Comment F acbrooke Mar 02, 2024 03:30 PM VA-TOBACCO USE FOR SUNG CIGARETTES [facility] Encounter Notes: All associated encounter notes This section contains the clinical notes associated to the Encounter. Date/Time Encounter Note(s) Provider Source Mar 27, 2024 03:57 PM ADMINISTRATIVE NOT E: LOCAL TITLE: CCC: SCHEDULING ADMINISTRATION STANDARD TITLE: ADMINISTRATIVE NOTE DATE OF NOTE: MAR 27, 2024@15:57:19 ENTRY DATE: MAR 27, 2024@15:57:19 AUTHOR: RICHARD COELLO COSIGNER: URGENCY: STATUS: COMPLETED CCC: SCHEDULING ADMINISTRATION Has ADDENDA Patient Demographics Patient Name: ELENA MARY Patient Primary Phone: [phone] Patient Primary Address: [address] [place] [address] Patient : 1980 Patient Age: 43 Call Back Number: [phone] Caller/Recipient Relation to Patient: Self Caller Name: ELENA MARY Administrative Administrative Note Reason: Other Administrative Note Comments: [facility] requesting a new consult for [place] [facility] as he would like a second opinion. Belle Rose can be reached at [phone] IMPORTANT: This note was created by [facility] Clinical Contact Center staff. Please do not alert the staff member by adding them as a signer for future communications. Alerts are not monitored by this user. /abisai/ RICHARD COELLO MSA Signed: 03/27/2024 15:57 Receipt Acknowledged By: 03/29/2024 09:29 /abisai/ JAC MEYERS RN REGISTERED NURSE 03/29/2024 09:31 /abisai/ ALEXANDER HOWARD LPN 03/29/2024 ADDENDUM STATUS: COMPLETED Forwarding request to Provider /abisai/ JAC MEYERS RN REGISTERED NURSE Signed: 03/29/2024 07:51 Receipt Acknowledged By: * AWAITING SIGNATURE * ELENA RODRIGUEZ CHERYL A PA CNTRL [facility]
--- OUTSIDE RECORDS SUMMARY | 2024-03-31 15:23 | XMS_ITS | Encounter Summary ---
Author Organization [facility] Address [address] [place] [address] Care Team Providers Care Grain Sacker Name Role Phone Sterling Moreno NP Primary Care Provider + [phone] Reason for Referral * Imaging (Routine) - Authorized Specialty Diagnoses / Procedures Referred By Contac t Referred To Contact Radiology Diagnoses Low back pain radiating to right leg Procedures MR Lumbar Spine wo Contrast Mally John PA 175 [facility], [address] [address] Phone: tel: fax: Radiology Department [address] Phone: tel: fax: Referral ID Status Reason Start Date Expiration Date V isits Requested Visits Authorized [id number] Authorized 03/20/2024 03/20/2025 1 1 * Imaging (Routine) - Authorized Specialty Diagnoses / Procedures Referred By Contac t Referred To Contact Radiology Diagnoses Sacroiliitis (CMS/HCC) Procedures IR Inj Anes/Steroid Nerve Sacroiliac Joint Right Mally John PA [address] [facility], [address] [place] [address] Phone: tel: fax: [facility] Interventional Radiology [address] [place] [address] Phone: tel: Referral ID Status Reason Start Date Expiration Date V isits Requested Visits Authorized [id number] Authorized 03/20/2024 03/20/2025 1 1 Reason for Visit * Reason Comments Sacral Iliac Joint Pain Eval for possibl e repeat injection Encounter Details Date Type Department Care Team (Late st Contact Info) Description 03/20/2024 10:15 AM EST Office Visit Neurosurgery [facility] [address] [facility] [address] [place] [address] Mally John PA 175 [facility], [address] [place] [address] Sacroiliitis (CMS/HCC) (Primary Dx); Low back pain [...] 25 gauge x 5/8 syringe BD Disp [place] 25G X 5/8 Misc
USE DIRECTED WEEKLY [...] PM EST [facility] [place] documented in this encounter Plan of Treatment [...] Signed Date: 03/27/2024 15:51 ET Workstation ID: [id number] Transcribed By: Self Edit Transcribed Date: 03/27/2024 [...] Signed Date: 03/27/2024 15:51 ET Workstation ID: [id number] Transcribed By: Self Edit Transcribed Date: 03/27/2024 [...] 03/20/2024 added in this encounter Care Teams Grain Sacker Relationship Specialty Start Date End Date Sterling Moreno NP [address] [place], [place] PCP - General 05/15/22 documented as of this encounter
--- OUTSIDE RECORDS SUMMARY | 2024-03-31 15:23 | XMS_ITS | Clinical Summary ---
Author Organization [facility] Address [address] [place] [address] Care Team Providers Care Cardiac Specialist Name Role Phone Elmo Moreno Primary Care Provider [phone] Allergies No known active allergies Medications Medication [...] Advance Directives For more information, please contact: [phone] Latest Code Status on File Code Status Date Activated Date Inactivated Comments Full Code 03/18/2020 12:11 PM 03/18/2020 9:28 PM This c ode status was ascertained in the following way: discussion with patient . Care Teams Cardiac Specialist Relationship Specialty Start Date End Date Elmo Moreno: [phone] [address] [facility] [place] [address] PCP - General Family Medicine 03/07/20
--- OUTSIDE RECORDS SUMMARY | 2024-03-31 15:24 | XMS_ITS | Encounter Summary ---
Author Organization [facility] Address [address] [place] [address] Care Team Providers Care Regional Production Manager Name Role Phone Elmo Moreno NP Primary Care Provider Encounter Details Date Type Department Care Team ([facility] Contact Info) Description 03/30/2024 Telephone Neurosurgery [facility] 175 [facility] [address] [place] [address] Mally John PA 175 [facility], [address] [place] [address] Social History Tobacco Use Types Packs/Day Years Used Date Smoking Tobacco: Never Smokeless Tobacco: Never Sex and Gender Information Value Date Recorded Sex Assigned at Not on file Legal Sex Male 7:57 PM EST Gender Identity Not on file Sexual Orientation Not on file documented as of this encounter Progress Notes * KHANG Shaikh - 03/30/2024 5:51 PM EST I called patient to let him know his MRI was reviewed with Dr. 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 He states he did get a call from radiology to schedule his right SI joint injection, has not calledback to set up a date yet because in the interim had issue with hernia. They are planning to schedule him for hernia surgery. I asked him to call with an update after he has injection and surgery, all questions answered. documented in this encounter Plan of Treatment Not on file documented as of this encounter Visit Diagnoses Not on filedocumented in this encounter Care Teams Regional Production Manager Relationship Specialty Start Date End Date Elmo Moreno NP 262 [facility] [place], [place] PCP - General 05/15/22 documented as of this encounter
--- OUTSIDE RECORDS SUMMARY | 2024-03-31 15:24 | XMS_ITS | Continuity of Care Document ---
Author Name [facility] Organization [facility] Care Team Providers Care Annual Giving Director Name Role Phone [facility] Unavailable Unavailable Problems Combined list of problems from 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 It does not include entries that were removed or entered in error. Problem Status Onset Date Problem Type Date of Resolution Comments Source Other hammer toe(s) (acquired), right foot Active 1898 Condition DoD Anxiety (SCT [id number]) Active Condition [facility] Chronic back pain [facility] Chronic kidney disease stage 3A Active Condition Mar 03 Entered By: EDITH ALEJANDRO Comment: Stage 3a chronic kidney disease 03/02/2021 [facility] Contact dermatitis Active Condition [facility] Degenerative Joint Disease of Shoulder Region (SCT [id number]) Active Condition [facility] Dermatophytosis Active Condition Mar 03, 2024 Entered By: EDITH ALEJANDRO Comment: Dermatophytosis tinea cruris [facility] Erectile Dysfunction (SCT [id number]) Active Condition [facility] GERD - Gastro-Esophageal Reflux Disease (SCT [id number]) Active Condition [facility] Gout Active Condition [facility] Hammer toe Active Condition Mar 03 Entered By: EDITH ALEJANDRO Comment: hammer toe(s) (acquired), right foot [facility] History of nicotine dependence Active Condition [facility] HTN - Hypertension (SCT [id number]) Active Condition [facility] Pain in Lumbar Spine (SCT [id number]) Active Condition [facility] [...] ICD-10-CM Z71.89 Other specified counseling Active Diagnosis [facility] [employer] Diagnosis: ICD-10-CM I10 Essential (primary) hypertension Active Diagnosis [facility] Medications Combined list of outpatient medications [...] ORAL, IVAX PHARMACEUT, 100 ea. BOTTLE Active [id number] 4 2023 90 Pharmac y Data Transac tion Service Facilit y hydroCHLORO thiazide 12.5 mg oral tablet hydroCHL OROthiaz magda 12.5 mg oral tablet Start Date: 10/08/20 Status: Ordered Ordered No Facilit y Access HYDROCHLORO THIAZIDE 25MG/LOSART AN POTASSIUM 100MG TAB TAKE ONE TABLET BY MOUTH ORAL ACTIVE GERARD RODRIGUEZ 2024 [facility] ibuprofen 600 mg oral tablet ibuprofe n 600 mg oral tablet Start Date: 10/29/20 Status: Ordered Ordered No Facilit y Access lidocaine 5% topical film lidocain e 5% topical film Start Date: 05/27/20 Status: Ordered Ordered No Facilit y Access LORAZEPAM (lorazepam) , 0.5 MG, TABLET, ORAL, AUROBINDO PHARM, 500 ea. BOTTLE Active [id number] 2023 30 Pharmac y Data Transac tion Service Facilit y LORAZEPAM (lorazepam) , 0.5 MG, TABLET, ORAL, AUROBINDO PHARM, 500 ea. BOTTLE Active [id number] 2023 30 Pharmac y Data Transac tion Service Facilit y LORAZEPAM (lorazepam) , 0.5 MG, TABLET, ORAL, TEVA [place], 500 ea. BOTTLE Active [id number] 2023 30 Pharmac y Data Transac tion Service Facilit y LORAZEPAM 0.5MG TAB TAKE ONE TABLET BY MOUTH ORAL ACTIVE MICHAEL GERARD Farhan 2024 [facility] losartan-hy droCHLOROth iazide 100mg-12.5m g oral tablet losartan -hydroCH LOROthia zide 100mg-12 .5mg oral tablet Start Date: 04/04/21 Status: Ordered Ordered No Facilit y Access losartan-hy droCHLOROth iazide 50mg-12.5mg oral tablet losartan -hydroCH LOROthia zide 50mg-12. 5mg oral tablet Start Date: 01/03/21 Status: Ordered Ordered No Facilit y Access LUER-SHRUTHI SYRINGE (syringe, disposable, 1 mL), DISP SYRIN, MISCELL, NAVEED DICKINSO, [address] C[address] d [id number] : 2023 0 Pharmac y Data Transac tion Service Facilit y meloxicam 15 mg oral tablet meloxica m 15 mg oral tablet Start Date: 04/17/21 Status: Ordered Ordered No Facilit y Access NAPROXEN (NAPROXEN), 500MG, TABLET, ORAL, GLENMARK PHARMA, 500 ea. BOTTLE Active [id number] 2023 60 Pharmac y Data Transac tion Service Facilit y NAPROXEN (NAPROXEN), 500MG, TABLET, ORAL, GLENMARK PHARMA, 500 ea. BOTTLE Active [id number] 2023 60 Pharmac y Data Transac tion Service Facilit y NAPROXEN 500MG TAB TAKE ONE TABLET BY MOUTH ORAL ACTIVE GERARD RODRIGUEZ 2024 [facility] OMEPRAZOLE (omeprazole ), 20 MG, CAPSULE DR, ORAL, [employer]), 1000 ea. BOTTLE Active [id number] 2023 90 Pharmac y Data Transac tion Service Facilit y omeprazole 20 mg oral delayed release capsule omeprazo le 20 mg oral delayed release capsule Start Date: 04/16/21 Status: Ordered Ordered No Facilit y Access OMEPRAZOLE 20MG CAP,EC TAKE 1 CAPSULE BY MOUTH EVERY MORNING 30 MINUTES BEFORE BREAKFAS T ORAL ACTIVE GERARD RODRIGUEZ 2024 [facility] oxyCODONE 5 mg oral tablet [...] BD MEDICAL SURG, 100 ea. RODRIGUEZ cárdenas [id number] : 2023 0 Pharmac y Data Transac [...] OIL) INJECT 1ML (200MG) INTRAMUS CULARLY INTRAM GERARD TAFOYA 2024 [facility] tiZANidine 2 mg oral tablet [...] Known Allergies Drug allergy (disorder) active 06/06/2012 [facility] Immunizations Combined list of available immunizations from the 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 Immunization Series Date Given Administered By Site Reaction Lot Number CVX Code Drug Put In Beat Adjuster Status Comments Source ANTHRAX VACCINE, UNSPECIFIED 6 2023 319 complet ed Lot#: [id number] [facility] Influenza, injectable, quadrivalent, preservative free 22 2021 [id number] [facility] [employer] Sports[employer]Bethany (SKB) complet ed Influenza , injectabl e, quadrival ent, preservat gauri free DoD tetanus, diphtheria, acellular pertu is 2021 [id number] sanofi pasteur complet ed tetanus, diphtheri a, acellular pertussis 04/24/21 Given Ambulat ory Pharmac y TDAP 2 2021 115 complet ed tetanus toxoid, reduced diphtheri a toxoid, and acellular pertussis vaccine, adsorbed Lot#: [id number] Mfr: SANOFI PASTEUR [facility] tetanus toxoid, reduced diphtheria toxoid, and acellular pertu is vaccine, adsorbed 2 2021 [id number] Sanofi Pasteur (PMC) complet ed tetanus toxoid, reduced diphtheri a toxoid, and acellular pertussis vaccine, adsorbed DoD influenza virus vaccine, inactivated 2020 [id number] Seqirus complet ed influenza virus vaccine, inactivat ed 01/18/21 Given Ambulat ory Pharmac y Influenza, injectable, Madin Orly Canine Kidney, quadrivalent with preservative 9 2020 [id number] Seqirus (SEQ) comple t ed Influenza , injectabl e, Madin [place] Canine Kidney, quadrival ent with preservat gauri DoD COVID Vaccine Moderna 2020 [id number] complet ed COVID Vaccine Moderna 05/25/20 Given Ambulat ory Pharmac y COVID-19 (MODERNA), MRNA, LNP-S, PF, 100 MCG/0.5ML DOSE OR 50 MCG/0.25ML DOSE 2 2020 207 complet ed SARS-COV- 2 (COVID-19 ) vaccine, mRNA, spike protein, LNP, preservat gauri free, 100 mcg or 50 mcg dose Lot#: [id number] Mfr: LokofotoA E.M.A.R.C., [employer]. [facility] SARS-COV-2 (COVID-19) vaccine, mRNA, spike protein, LNP, preservative free, 100 mcg or 50 mcg dose 2 2020 [id number] Moderna E.M.A.R.C., Inc. (MOD) complet ed SARS-COV- 2 (COVID-19 ) [...] 100 mcg or 50 mcg dose Lot#: [id number] Mfr: LokofotoA E.M.A.R.C., [employer]. [facility] SARS-COV-2 (COVID-19) vaccine, mRNA, spike protein, LNP, preservative free, 100 mcg or 50 mcg dose 1 2020 [id number] Moderna E.M.A.R.C., Inc. (MOD) complet ed SARS-COV- 2 (COVID-19 ) vaccine, mRNA, spike protein, LNP, preservat gauri free, 100 mcg or 50 mcg dose DoD influenza, injectable, quadrivalent- pf 2019 [id number] 150 Seqirus complet ed influenza , injectabl e, quadrival ent-pf 12/31/19 Given Ambulat ory Pharmac y Influenza, injectable, quadrivalent, preservative free 1 2019 [id number] 077 150 Seqirus (SEQ) complet ed Influenza , injectabl e, quadrival ent, preservat gauri free DoD influenza, injectable, quadrivalent- pf 2018 [id number] 520 150 Seqirus complet ed influenza , injectabl e, quadrival ent-pf 11/20/18 Given Ambulat ory Pharmac y Influenza, injectable, quadrivalent, preservative free 17 2018 [id number] 520 150 Seqirus (SEQ) complet ed Influenza [...] typhoid Vi capsular polysaccharid e vac 2017 [id number] sanofi pasteur complet ed typhoid Vi capsular polysacch aride vac 06/20/17 Given Ambulat ory Pharmac y TYPHOID, VICPS 2017 101 complet ed typhoid Vi capsular polysacch aride vaccine Lot#: [id number] Mfr: SANOFI PASTEUR [facility] typhoid Vi capsular polysaccharid e vaccine 5 2017 [id number] Sanofi Pasteur (PMC) complet ed typhoid [...] virus vaccine DoD influenza, seasonal, injectable 2016 [id number] complet ed influenza , seasonal, injectabl e 12/13/16 Given Ambulat ory Pharmac y Influenza, seasonal, injectable, preservative free 2016 BOGDASARIAN, () Not Given Influenza , seasonal, injectabl e, preservat gauri free DoD Influenza, seasonal, injectable 1 2016 [id number] 141 Transcribed (TRS) complet ed Influenza , [...] gauri DoD influenza, live, intranasal,qu adrivalent 2014 [id number] 149 Medimmune Inc comple t ed influenza , live, intranasa l,quadriv alent 11/20/14 Given Ambulat ory Pharmac y influenza, live, intranasal, quadrivalent 13 2014 [id number] 149 MedImmune, Inc. (MED) complet ed influenza , live, intranasa l, quadrival ent DoD influenza, live, intranasal,qu adrivalent 2013 [id number] 149 Medimmune Inc comple t ed influenza , live, intranasa l,quadriv alent 12/14/13 Given Ambulat ory Pharmac y influenza, live, intranasal, quadrivalent 12 2013 [id number] 149 MedImmune, Inc. (MED) complet ed influenza , live, intranasa l, quadrival ent DoD influenza, live, intranasal,qu adrivalent 2012 [id number] 149 Medimmune Inc comple t ed influenza , live, intranasa l,quadriv alent 10/13/12 Given Ambulat ory Pharmac y influenza, live, intranasal, quadrivalent 0 2012 [id number] 149 MedImmune, Inc. (MED) complet ed influenza , live, intranasa l, quadrival ent DoD typhoid Vi capsular polysaccharid e vac 2012 [id number] 101 sanofi pasteur complet ed typhoid Vi capsular polysacch aride vac 08/16/12 Given Ambulat ory Pharmac y anthrax vaccine 2012 [id number] Emergent Biosolutions complet ed anthrax vaccine 08/16/12 Given Ambulat ory Pharmac y ANTHRAX VACCINE, UNSPECIFIED 7 2012 319 complet ed Lot#: [id number] [facility] anthrax vaccine 7 2012 [id number] [employer]gent [employer] [place] ([facility]) complet ed anthrax vaccine DoD typhoid Vi capsular polysaccharid e vaccine 4 2012 [id number] 101 Sanofi Pasteur (PMC) complet ed typhoid Vi capsular polysacch aride vaccine DoD influenza virus vaccine, live 2011 [id number] 111 Citilogune Inc comple t ed influenza virus vaccine, live 10/30/11 Given Ambulat ory Pharmac y influenza virus vaccine, live, attenuated, for intranasal use 0 2011 [id number] 111 Ganipara, Inc. (MED) complet ed influenza virus vaccine, live, attenuate d, for intranasa l use DoD tetanus, diphtheria, acellular pertu is 2011 [id number] [address] complet ed tetanus, diphtheri a, acellular pertussis 05/22/11 Given Ambulat ory Pharmac y TDAP 2011 115 complet ed tetanus toxoid, reduced diphtheri a toxoid, and acellular pertussis vaccine, adsorbed Lot#: [id number] A [facility] [place] [facility] tetanus toxoid, reduced diphtheria toxoid, and acellular pertu is vaccine, adsorbed 0 2011 [id number] 115 MiFi ([facility]) complet ed tetanus toxoid, reduced diphtheri a toxoid, and acellular pertussis vaccine, adsorbed DoD anthrax vaccine 2011 [id number] Emergent Biosolutions complet ed anthrax vaccine 03/09/11 Given Ambulat ory Pharmac y typhoid Vi capsular polysaccharid e vac 2011 [id number] 101 sanofi pasteur complet ed typhoid Vi capsular polysacch aride vac 03/09/11 Given Ambulat ory Pharmac y ANTHRAX VACCINE, UNSPECIFIED 6 2011 319 complet ed Lot#: [id number] [facility] [place] [facility] TYPHOID, VICPS 3 2011 101 complet ed typhoid Vi capsular polysacch aride vaccine Lot#: [id number] Mfr: SANOFI PASTEUR [facility] anthrax vaccine 6 2011 [id number] [employer] [place] ([facility]) complet ed anthrax vaccine DoD typhoid Vi capsular polysaccharid e vaccine 3 2011 [id number] 101 Sanofi Pasteur (PMC) complet ed typhoid Vi capsular polysacch aride vaccine DoD influenza virus vaccine, live 2010 [id number] 111 Medimmune Inc comple t ed influenza virus vaccine, live 11/04/10 Given Ambulat ory Pharmac y influenza virus vaccine, live, attenuated, for intranasal use 9 2010 [id number] 111 Ganipara, Inc. (MED) complet ed influenza virus vaccine, live, attenuate d, for intranasa l use DoD influenza virus vaccine,split 2009 [id number] 15 sanofi pasteur complet ed influenza virus vaccine,s plit 11/04/09 Given Ambulat ory Pharmac y influenza virus vaccine, split virus (incl. purified surface antigen)-reti red CODE 8 2009 [id number] 15 Sanofi Pasteur (PMC) complet ed influenza virus vaccine, split virus (incl. purified surface antigen)- retired CODE DoD anthrax vaccine 2009 [id number] Emergent Biosolutions complet ed anthrax vaccine 09/04/09 Given Ambulat ory Pharmac y anthrax vaccine 5 2009 [id number] [employer] Mark (MIP) complet ed anthrax vaccine DoD Novel influenza-H1N 1-09,pf,injec table 2009 [id number] 1 126 Novartis Pharmaceutica ls complet ed Novel influenza -A9N9-05, pf,inject able 02/25/09 Given Ambulat ory Pharmac y Novel influenza-H1N 1-09, preservative- free, injectable 1 2009 [id number] 1 126 Novartis Pharmaceutica l Tyshawn. (NOV) complet ed Novel influenza -T4K8-91, preservat gauri-free, injectabl e DoD influenza virus vaccine, live 2008 [id number] 111 AnSing Technology Inc comple t ed influenza virus vaccine, live 10/26/08 Given Ambulat ory Pharmac y influenza virus vaccine, live, attenuated, for intranasal use 1 2008 [id number] 111 Ganipara, Inc. (MED) complet ed influenza virus vaccine, live, attenuate d, for intranasa l use DoD anthrax vaccine 2008 [id number] 24 Emergent Biosolutions complet ed anthrax vaccine 03/27/08 Given Ambulat ory Pharmac y ANTHRAX VACCINE, UNSPECIFIED 2008 319 complet ed Lot#: [id number] [facility] anthrax vaccine 5 2008 [id number] [employer] Mark (MIP) complet ed anthrax vaccine DoD influenza virus vaccine,split 2007 [id number] 15 CSL Behring complet ed influenza virus vaccine,s plit 11/14/07 Given Ambulat ory Pharmac y influenza virus vaccine, split virus (incl. purified surface antigen)-reti red CODE 1 2007 [id number] 15 CSL Biotherapies, Inc. (CSL) complet ed influenza virus vaccine, split virus (incl. purified surface antigen)- retired CODE DoD anthrax vaccine 2007 [id number] Emergent Biosolutions complet ed anthrax vaccine 09/12/07 Given Ambulat ory Pharmac y ANTHRAX VACCINE, UNSPECIFIED 4 2007 319 complet ed Lot#: [id number] [facility] anthrax vaccine 4 2007 [id number] [employer] [place] (MIP) complet ed anthrax vaccine DoD anthrax vaccine 2007 [id number] Emergent Biosolutions complet ed anthrax vaccine 03/30/07 Given Ambulat ory Pharmac y ANTHRAX VACCINE, UNSPECIFIED 3 2007 319 complet ed Lot#: [id number] [facility] anthrax vaccine 3 2007 [id number] [employer] Mark (MIP) complet ed anthrax vaccine DoD anthrax vaccine 2007 [id number] Emergent Bios[employer] complet ed anthrax vaccine 03/10/07 Given Ambulat ory Pharmac y ANTHRAX VACCINE, UNSPECIFIED 2 2007 319 complet ed Lot#: [id number] [facility] anthrax vaccine 2 2007 [id number] [employer] [place] (MIP) complet ed anthrax vaccine DoD anthrax vaccine 2007 [id number] Emergent [employer]olutions complet ed anthrax vaccine 02/21/07 Given Ambulat ory Pharmac y ANTHRAX VACCINE, UNSPECIFIED 1 2007 319 complet ed Lot#: [id number] [facility] anthrax vaccine 1 2007 [id number] [employer] Mark (MIP) complet ed anthrax vaccine DoD vaccinia (smallpox) vaccine 0 2007 75 () Not Given vaccinia (smallpox ) vaccine DoD influenza virus vaccine, live 2006 [id number] 111 MediStamp.itune Inc comple t ed influenza virus vaccine, live 01/10/07 Given Ambulat ory Pharmac y influenza virus vaccine, live, attenuated, for intranasal use 1 2006 [id number] 111 Ganipara, Inc. (MED) complet ed influenza virus vaccine, live, attenuate d, for intranasa l use DoD typhoid vaccine, live, oral 2006 [id number] 25 [employer] [place] complet ed typhoid vaccine, live, oral 03/05/06 Given Ambulat ory Pharmac y typhoid vaccine, live, oral 1 2006 [id number] Pix[employer] ([facility]) complet ed typhoid vaccine, live, oral DoD influenza virus vaccine, live [id number] [facility] t ed influenza virus vaccine, live 12/04/05 Given Ambulat ory Pharmac y influenza virus vaccine, live, attenuated, for intranasal use 1 2005 [id number] 111 Ganipara, Inc. (MED) complet ed influenza virus vaccine, live, attenuate d, for intranasa l use DoD influenza virus vaccine, live 2004 [id number] 111 AnSing Technology Inc comple t ed influenza virus vaccine, live 12/25/04 Given Ambulat ory Pharmac y influenza virus vaccine, live, attenuated, for intranasal use 1 2004 [id number] 111 Ganipara, Inc. (MED) complet ed influenza virus vaccine, live, attenuate d, for intranasa l use DoD influenza virus vaccine, live 2004 [id number] 111 MediStamp.itune Inc comple t ed influenza virus vaccine, live 03/05/04 Given Ambulat ory Pharmac y typhoid Vi capsular polysaccharid e vac 2004 [id number] 101 sanofi pasteur complet ed typhoid Vi capsular polysacch aride vac 03/05/04 Given Ambulat ory Pharmac y typhoid Vi capsular polysaccharid e vaccine 0 2004 [id number] 101 Sanofi Pasteur ([facility]) complet ed typhoid Vi capsular polysacch aride vaccine DoD influenza virus vaccine, live, attenuated, for intranasal use 0 2004 [id number] 111 Xspandune, Inc. (MED) complet ed influenza virus vaccine, live, attenuate d, for intranasa l use DoD hepatitis A-hepatitis B vaccine 2003 [id number] 104 GlaxoSmithKli ne complet ed hepatitis A-hepatit is B vaccine 12/07/03 Given Ambulat ory Pharmac y HEP A-HEP B 3 2003 104 complet ed hepatitis A and hepatitis B vaccine Lot#: [id number] [facility] hepatitis A and hepatitis B vaccine 3 2003 [id number] 104 SmithKline (SKB) complet ed hepatitis A and hepatitis B vaccine DoD hepatitis A-hepatitis B vaccine 2003 [id number] 104 GlaxoSmithKli ne complet ed hepatitis A-hepatit is B vaccine 07/07/03 Given Ambulat ory Pharmac y HEP A-HEP B 2 2003 104 complet ed hepatitis A and hepatitis B vaccine Lot#: [id number] [facility] hepatitis A and hepatitis B vaccine 2 2003 [id number] 104 SmithKline (SKB) complet ed hepatitis A and hepatitis B vaccine DoD hepatitis A-hepatitis B vaccine 2003 [id number] 104 GlaxoSmithKli ne complet ed hepatitis A-hepatit is B vaccine 06/06/03 Given Ambulat ory Pharmac y HEP A-HEP B 1 2003 104 complet ed hepatitis A and hepatitis B vaccine Lot#: [id number] [facility] measles, mumps and rubella virus vaccine 0 2003 03 () Not Given measles, mumps and rubella virus vaccine DoD varicella virus vaccine 1 2003 21 () Not Given varicella virus vaccine DoD hepatitis A and hepatitis B vaccine 1 2003 [id number] 104 SmithKline (SKB) complet ed hepatitis A and hepatitis B vaccine DoD poliovirus vaccine, inactivated 2003 [id number] 10 sanofi pasteur complet ed polioviru s vaccine, inactivat ed 06/01/03 Given Ambulat ory Pharmac y tetanus-dipht h toxoids (Td) adult/adol 2003 [id number] 09 sanofi pasteur complet ed tetanus-d iphth toxoids (Td) adult/ado l 06/01/03 Given Ambulat ory Pharmac y tuberculin purified protein derivative 2003 [id number] 96 sanofi pasteur complet ed tuberculi n purified protein derivativ e 06/01/03 Given Ambulat ory Pharmac y meningococcal polysaccharid e (MPSV4) 2003 [id number] sanofi pasteur complet ed meningoco ccal polysacch aride (MPSV4) 06/01/03 Given Ambulat ory Pharmac y influenza virus vaccine, whole virus 2003 [id number] Novartis Pharmaceutica ls complet ed influenza virus vaccine, whole virus 06/01/03 Given Ambulat ory Pharmac y MENINGOCOCCAL MPSV4 2003 32 complet ed meningoco ccal polysacch aride vaccine (MPSV4) Lot#: [id number] Mfr: SANOFI PASTEUR [facility] [employer] [facility] [facility] POLIO, UNSPECIFIED FORMULATION 2003 89 complet ed Sanofi Pasteur Lot#: [id number] [facility] [employer] [facility] [facility] TD(ADULT) UNSPECIFIED FORMULATION 2003 139 complet ed tetanus and diphtheri a toxoids, adsorbed, preservat gauri free, for adult use (2 Lf of tetanus toxoid and 2 Lf of diphtheri a toxoid) Lot#: [id number] Mfr: SANOFI PASTEUR [facility] [employer])[facility] tetanus and diphtheria toxoids, adsorbed, preservative free, for adult use (2 Lf of tetanus toxoid and 2 Lf of diphtheria toxoid) 0 2003 [id number] 09 Sanofi Pasteur ([facility]) complet ed tetanus and diphtheri a toxoids, adsorbed, preservat gauri free, for adult use (2 Lf of tetanus toxoid and 2 Lf of diphtheri a toxoid) DoD poliovirus vaccine, inactivated 0 2003 [id number] 10 Sanofi Pasteur (PMC) complet ed polioviru s vaccine, inactivat ed DoD influenza virus vaccine, whole virus 0 2003 [id number] PowderJect Pharmaceutica ls (PWJ) complet ed influenza virus vaccine, whole virus DoD meningococcal polysaccharid e vaccine (MPSV4) 0 2003 [id number] Sanofi Pasteur (PMC) complet ed meningoco ccal polysacch aride vaccine (MPSV4) DoD Vital Signs Combined list of inpatient and outpatient Vital Signs from Department of Defense and Veterans Affairs, ranging from 12 months to all on record, depending upon the facility. Vital Sign Value Date Comments Source SYSTOLIC BLOOD PRESSURE 144 03/02/19 25 15:33:11 [facility] DIASTOLIC BLOOD PRESSURE 100 025 15:33:11 [facility] RESPIRATION 16 03/02/2024 15:33:11 [facility] Encounters Combined list of: 1) Encounters from Department of Veterans Affairs facilities going backup to the last 18 months, not all VA inpatient encounters are included; 2) 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 Location Location Details Encounter Type Encounter Number Reason For Visit Attending Provider ADM Date DC Date Status Disposition Source [facility](Fam mara Practice Red) TELE CONSULT [id number] chest congest ion with fever SERGIO LOVE 03/23 [facility](F amily Practic e Red) [facility](Int Med Clinic) OUTPATIENT [id number] URI symptom s PITER MALDONADO A 03/23 Released w/o Limitations [facility](I nt Med Clinic) [facility](Fli ght Medicine Clinic) OUTPATIENT [id number] [facility] health part 2 YAYA SANTOS 04/27 Released w/o Limitations [facility]F light Medicin e Clinic) [facility] Red) TELE CONSULT [id number] foot swollen and cant walk on it; pt has an appt tomorro w but ... HANKINSMODESTO 05/05 [facility](F amily Practic e Red) [facility](Fam [facility]a Practice Blue) OUTPATIENT [id number] swollen painful R foot RADDEN, JAIME D 05/05 Released w/o Limitations [facility](F amily Practic e Blue) [facility](Fam mara Practice Red) OUTPATIENT [id number] pt injured r foot pain ful when put pressur e painful to touch KATE, SERGIO 05/06 Released w/o Limitations [facility](F amily Practic e Red) [facility](Opt ometry Clinic) OUTPATIENT [id number] possibl e foreign body LATIA CARVAJAL 05/06 Released w/o Limitations [employer](O ptometr y Clinic) [facility](Fam mara Practice Blue) TELE CONSULT [id number] right foot pain RADDEN, JAIME D 05/08 [employer](F amily Practic e Blue) [facility](Fam mara Practice Blue) OUTPATIENT [id number] f/u on gout RADDEN, JAIME D 05/10 Released w/o Limitations [facility](F amily Practic e Blue) [facility](Fam mara Practice Blue) OUTPATIENT [id number] gout RADDEN, JAIME D 05/13 Released w/o Limitations [facility](F amily Practic e Blue) [facility](Fam mara Practice Blue) TELE CONSULT [id number] CONCERN S ABOUT REFERRA L DOM REDMOND 05/14 [employer](F amily Practic e Blue) [facility](Fam mara Practice Red) OUTPATIENT [id number] profile and med refill KATE, SERGIO 07/20 Released with Work/Duty Limitations [employer](F amily Practic e Red) [facility](Fam mara Practice Red) TELE CONSULT [id number] referra l for orthope dic special ist for ankle KATE, SERGIO 08/02 [employer](F amily Practic e Red) [employer]([facility]am mara Practice Red) TELE CONSULT [id number] pt was sent to orthope [place] [facility] and pt was giving a out of work slip MODESTO HANKINS 09/09 [employer](F amily Practic e Red) [employer]([facility]am mar[facility] Practice Red) TELE CONSULT [id number] pt needs med refill ADALET 60mg pt has 5 pills left KATE, SERGIO 09/16 [employer](F amily Practic e Red) [employer]([facility]am mar[facility] Practice Red) OUTPATIENT [id number] f/u htn (adalat increas ed last appt) KATE SERGIO 10/13 Released w/o Limitations [employer](F amily Practic e Red) [facility](Fam mara Practice Red) OUTPATIENT [id number] [place] DEBBIE Boone 12/13 Released w/o Limitations [employer](F amily Practic e Red) [employer]([facility]am mar[facility] Practice Red) OUTPATIENT [id number] pt pcsing in april, eeds CONOR Blanchard 01/28 Released w/o Limitations [employer](F amily Practic e Red) [facility](Fam mara Practice Red) OUTPATIENT [id number] medical EDIE Rinaldi 03/09 Released w/o Limitations [employer](F amily Practic e Red) [facility](Fam mara Practice Red) OUTPATIENT [id number] F/U from appt Feb 22--med ical EDIE Rinaldi 03/23 Released w/o Limitations [employer](F amily Practic e Red) [facility](Fam mara Practice Red) OUTPATIENT [id number] follow up on bp EDIE IBANEZ 03/30 Released w/o Limitations [facility](F amily Practic e Red) [facility](Fam mara Practice Red) TELE CONSULT [id number] Pt has questio ns about pha and hiv test MODESTO HANKINS 04/08 [employer](F amily Practic e Red) [employer]([facility] Cell) OUTPATIENT [id number] pha due [place] imriamboris ce [place] FLEMINGJOIE SCHROEDER Niharika 04/11 Released w/o Limitations [employer](P BUENO Cell) [employer]([facility]) OUTPATIENT [id number] [facility] pe/stru ctural MX YAYA SANTOS 04/12 Released w/o Limitations [employer](F light Medicin e Clinic) [employer]([facility]) OUTPATIENT [id number] Inproce ssing Record Review EDITH DESAI 07/21 Released w/o Limitations [employer]([facility]) [employer]([facility] Practice [facility]) OUTPATIENT [id number] PHA JOHANNY AGUILERA 04/27 Released w/o Limitations [employer](F amily Practic e Clinic) [employer]([facility] Practice [facility]) TELE CONSULT [id number] f/u pha TELUGU, UN DIAN 05/01 [employer](F amily Practic e Clinic) [employer]([facility] Practice [facility]) OUTPATIENT [id number] f/u 3day bp check TELUGU, UN DIAN 05/04 Released w/o Limitations [employer](F amily Practic e Clinic) [employer]([facility] Surgeon Office) OUTPATIENT [id number] [facility]- AUDIOGR AM,MED HY,PHY EX,WORK PLACE EXP,RES P QUEST JUANJO CLEARY 07/05 Released w/o Limitations [employer](F light Surgeon Office) [employer]([facility] Practice [facility]) OUTPATIENT [id number] JANNA Garcia 08/03 Sick at Home/Quarter s [employer](F amily Practic e Clinic) [employer]([facility] Practice [facility]) OUTPATIENT [id number] - MISSY MCKEON 11/05 Released w/o Limitations [employer](F amily Practic e Clinic) [employer] OUTPATIENT [id number] -BRISA BOURGEOIS 11/06 Sick at Home/Quarter s [employer](F amily Practic e Clinic) [employer]([facility]) OUTPATIENT [id number] ft nasal congest ion product gauri cough clear sore throat JONEL BUSBY 11/09 Sick at Home/Quarter s [employer](F amily Practic e Clinic) [employer]([facility]) DENTAL [id number] Exam JOSE RAFAEL MAGAÑA 12/21 Released w/o Limitations [employer](D ental Clinic) [employer]([facility]) DENTAL [id number] DEION Pardo 12/21 Released w/o Limitations [employer](D ental Clinic) [employer]([facility]) TELE CONSULT [id number] VASECTO MY CONSULT XIANG MATHUR 01/28 [employer](F amily Practic e Clinic) [employer]([facility]) OUTPATIENT [id number] Vas Consult XIANG MATHUR 03/01 Released w/o Limitations [employer](F amily Practic e Clinic) [employer]([facility]) OUTPATIENT [id number] F/U HBP, LABS XIANG MATHUR 04/02 Released w/o Limitations [employer](F amily Practic e Clinic) [employer]([facility]) OUTPATIENT [id number] PHA ANN MARIE COLÓN 04/18 Released w/o Limitations [employer]([facility]) [employer]([facility]) TELE CONSULT [id number] CONLEAV E FOR SURGERY BRYANNA ADORNO 04/25 [employer](F amily Practic e Clinic) [employer]([facility]) TELE CONSULT [id number] con lv or quarter s XIANG MATHUR 08/12 [employer](F amily Practic e Clinic) [employer]([facility]) OUTPATIENT [id number] Per XIANG Fitzpatrick 08/13 Released w/o Limitations [employer](F amily Practic e Clinic) [employer]([facility]) TELE CONSULT [id number] F/U BLOOD PRESSUR E MARK MCCLENDON 09/02 [employer](F amily Practic e Clinic) [employer]([facility]) TELE CONSULT [id number] Deploym ent ELMER Fofana 09/04 [employer](F amily Practic e Clinic) [employer]([facility]) OUTPATIENT [id number] finger pain x months/ pt request ed alterna te pcm. (pt's pcm on leave) MAYITO CHAVEZ 09/05 Released w/o Limitations [employer](F amily Practic e Clinic) [employer]([facility] Practice [facility]) TELE CONSULT [id number] CALL BACK FOR DEPLOYM ENT ELMER ALBERTO 09/10 [employer](F amily Practic e Clinic) [employer] Sur[facility] OUTPATIENT [id number] [facility] audio normal no exam needed RAMILA DAMIAN 09/12 Released w/o Limitations [employer](F light Surgeon Office) [employer] OUTPATIENT [id number] [facility] STERLING GEE 09/20 Released w/o Limitations [employer](F light Surgeon Office) [employer]([facility]) TELE CONSULT [id number] RETRO REFERRA L REQ CHAPIS FULTON 12/06 Referred for Appointment [employer](F amily Practic e Clinic) [employer]([facility]) TELE CONSULT [id number] quarter s MARK MCCLENDON 12/06 [employer](F amily Practic e Clinic) [employer]([facility]) TELE CONSULT [id number] RETRO REFERRA L MISSY CORTEZ 12/12 Referred for Appointment [employer](F amily Practic e Clinic) [employer]([facility]) TELE CONSULT [id number] NAUSEA/ BUENO X TODAY CHAPIS FULTON 12/24 Referred for Appointment [employer](F amily Practic e Clinic) [employer]([facility]) TELE CONSULT [id number] work excuse/ quarter s CANDY TOPETE 12/24 [employer](F amily Practic e Clinic) [employer]([facility]) TELE CONSULT [id number] Quarter s [employer] CAMDENKARLI MICHELEARNEST Hudson 01/03 [employer](F amily Practic e Clinic) [employer]([facility]) OUTPATIENT [id number] NVD, BUENOanitra -JUANJO CASTRO 01/24 Sick at Home/Quarter s [employer](F amily Practic e Clinic) [employer]([facility]) OUTPATIENT [id number] ON GOING RASH X 1 MTH //POSSI BLE DERMATO LOGY BRYANNA WHITNEY 02/05 Released w/o Limitations [employer](F amily Practic e Clinic) [employer]([facility]) TELE CONSULT [id number] CHAPIS Portillo 02/18 Referred for Appointment [employer](F amily Practic e Clinic) [employer]([facility]) OUTPATIENT [id number] SORE THROAT, HEADACH E, FEVER, CHILLS TANNER VILLASEÑOR 02/28 Released w/o Limitations [employer](F amily Practic e Clinic) [employer]([facility]) TELE CONSULT [id number] KEENAN SHERIFF 03/11 Referred for Appointment [employer](F amily Practic e Clinic) [employer]([facility]) TELE CONSULT [id number] NURSE CONSULT /REACTI ON TO MEDS KEENAN SHERIFF 03/20 [employer](F amily Practic e Clinic) [employer]([facility]) OUTPATIENT [id number] sore throat/ med side effects CAMDENCANDY MICHEL Tristan 03/24 Released w/o Limitations [employer](F amily Practic e Clinic) [employer]([facility]) OUTPATIENT [id number] MARK Benedict 04/21 Sick at Home/Quarter s [employer](F amily Practic e Clinic) [employer]([facility]) OUTPATIENT [id number] PHA/EMS VICKIE SIU 05/29 Released w/o Limitations [employer](P [facility] Cell) [employer](Fam Med Cl Tm B Non-Ad) TELE CONSULT [id number] ACTIVE DUTY/ RIGHT CALF PAIN KEENAN SHERIFF 08/19 [employer](F am Med Cl Tm B Non-Ad) [employer]([facility] mara Practice Clinic) OUTPATIENT [id number] right calf pain since last Thursda y ZTCANDY MICHEL 08/20 Released w/o Limitations [employer](F amily Practic e Clinic) [employer](Fam Med Cl Tm B Non-Ad) TELE CONSULT [id number] LIAN HOLT PROFILE /WAS SEEN YESTERD AY KEENAN SHERIFF 08/21 [employer](F am Med Cl Tm B Non-Ad) [employer](Fam Med Cl Tm B Non-Ad) TELE CONSULT [id number] profile extensi on request KISHORE MARROQUIN O 09/05 [employer](F am Med Cl Tm B Non-Ad) [employer](Fam Med Cl Tm B Non-Ad) TELE CONSULT [id number] PROFILE EXTENSI ON CARA KISHORE O 09/08 Medical Group(F am Med Cl Tm B Non-Ad) [employer](Fam Med Cl Tm B Non-Ad) OUTPATIENT [id number] fu right leg / profile CAMDENKARLI MICHELEARNEST [place] 09/17 Released w/o Limitations [employer](F am Med Cl Tm B Non-Ad) [facility] Group(I Affiliate s) OUTPATIENT [id number] F/U PROFILE JUANJO FULTON L 10/03 Released w/o Limitations [employer] [facility](F HI Affilia nikolay) [employer](Phy [facility]ical Therapy Clinic) OUTPATIENT [id number] SUMIT ROSEN 10/03 Released with Work/Duty Limitations [employer] [facility](P hysical Therapy Clinic) [employer]([facility] Therapy [facility]) OUTPATIENT [id number] Rt lower leg pain MARCIALLUIS 10/09 Released with Work/Duty Limitations [employer] [facility](P hysical Therapy Clinic) [employer]([facility]) OUTPATIENT [id number] NATALIIA GUERIN 10/14 Released with Work/Duty Limitations [employer](P hysical Therapy Clinic) [employer]([facility] Therapy [facility]) OUTPATIENT [id number] MARCIAL, LUIS 10/16 Released with Work/Duty Limitations [employer](P hysical Therapy Clinic) [employer]([facility] Therapy [facility]) OUTPATIENT [id number] BRISA GONZALEZ 10/28 Released with Work/Duty Limitations [employer](P hysical Therapy Clinic) [employer]([facility] Therapy Clinic) OUTPATIENT [id number] SUMIT ROSEN 10/29 Released with Work/Duty Limitations [employer](P hysical Therapy Clinic) [employer](Fli t Surgeon Office) OUTPATIENT [id number] [facility] LEIGH TAYLOR 11/21 Released w/o Limitations [employer](F light Surgeon Office) [employer](Phy sical Therapy Clinic) OUTPATIENT [id number] BRISA GONZALEZ 12/19 Released w/o Limitations [employer](P hysical Therapy Clinic) [employer]([facility] Therapy [facility]) OUTPATIENT [id number] MARCIAL, LUIS 12/29 Released w/o Limitations [employer](P hysical Therapy Clinic) [employer]([facility] Therapy [facility]) OUTPATIENT [id number] MARCIAL, LUIS 01/02 Released w/o Limitations [employer](P hysical Therapy Clinic) [employer]([facility] Therapy [facility]) OUTPATIENT [id number] MARCIAL, LUIS 01/05 Released w/o Limitations [employer](P hysical Therapy Clinic) [employer]([facility] Therapy Clinic) OUTPATIENT [id number] SUMIT ROSEN 01/26 Released with Work/Duty Limitations [employer](P hysical Therapy Clinic) [employer]([facility] Therapy Clinic) OUTPATIENT [id number] MARCIAL, LUIS 02/13 Released with Work/Duty Limitations [employer](P hysical Therapy Clinic) [employer]([facility]hy [facility] Therapy Clinic) OUTPATIENT [id number] LUIS MARCIAL 02/20 Released with Work/Duty Limitations [employer](P hysical Therapy Clinic) [employer]([facility]hy [facility] Therapy Clinic) OUTPATIENT [id number] NATALIIA GUERIN 03/10 Released with Work/Duty Limitations [employer](P hysical Therapy Clinic) [employer]([facility] Affiliate s) TELE CONSULT [id number] PRE DEPLOYM ENT CLEARAN CE APR 14 2011 DAYTON LORA 03/13 [employer]([facility] Affilia nikolay) [employer](Phy sical Therapy Clinic) OUTPATIENT [id number] LISA BRISA S 03/13 Released with Work/Duty Limitations [employer](P hysical Therapy Clinic) [employer]([facility]hy [facility] Therapy Clinic) OUTPATIENT [id number] LUIS MARCIAL 03/16 Released with Work/Duty Limitations [employer](P hysical Therapy Clinic) [employer](Phy [facility] Therapy Clinic) OUTPATIENT [id number] SUMIT ROSEN E 04/10 Released with Work/Duty Limitations [employer](P hysical Therapy Clinic) [employer](Fam Med Cl Tm B Non-Ad) OUTPATIENT [id number] F/U PROFILE / MED ROHIT LUCIANO 05/24 Released w/o Limitations [employer](F am Med Cl Tm B Non-Ad) [employer]([facility] Team D) OUTPATIENT [id number] chest cold, hurt finger SKYLAR ARIAS 07/22 Released w/o Limitations [employer](O del cid [facility] Team D) [employer](Fam Med Cl Tm B Non-Ad) TELE CONSULT [id number] Notes Entered by: RICHARD CRYSTAL 03 Aug 2011809 ------- ------- ------- ------- -- Physica l Therapy ROHIT Stewart 08/02 [employer](F am Med Cl Tm B Non-Ad) [employer]([facility] s) TELE CONSULT [id number] Notes Entered by: Da WORKMAN 01 Dec 2011 1158 ------- ------- ------- ------- -- ER VISIT F/U MISSY CORTEZ Tristan 11/30 [employer]([facility]) [employer]([facility] Med Tm B Non-Ad) TELE CONSULT [id number] Notes Entered by: Da WORKMAN 01 Dec 2011 1204 ------- ------- ------- ------- -- L. FOOT PAIN REYNA MOREL 11/30 [employer]( am Med Cl Tm B Non-Ad) [employer]([facility] s) OUTPATIENT [id number] left foot pain//c VENITA Kumar 12/02 Released w/o Limitations [employer]([facility]) [employer]([facility] Med Cl Tm B Non-Ad) TELE CONSULT [id number] Notes Entered by: REYNA MOREL 24 Dec 2011 1339 ------- ------- ------- ------- -- Con leave request REYNA MOREL 12/23 [employer]([facility] Med Cl Tm B Non-Ad) [employer]([facility] s) TELE CONSULT [id number] Notes Entered by: STACY LIN 29 Dec 2011 0941 ------- ------- ------- ------- -- CON LEAVE EXT REYNA MOREL 12/28 [employer]([facility] nikolay) [employer]([facility] Med Cl Tm B Non-Ad) TELE CONSULT [id number] Notes Entered by: ROHIT CLARK 11 Jan 2012 1712 ------- ------- ------- ------- -- ROHIT Tan 01/10 [employer](F am Med Cl Tm B Non-Ad) [employer](Fam Med Cl Tm B Non-Ad) OUTPATIENT [id number] nausea diarrhe a some lighthe adednes s x 3 days// DEJA LEOS 04/29 Sick at Home/Quarter s [employer](F am Med Cl Tm B Non-Ad) [employer]([facility] Surgeon Office) OUTPATIENT [id number] Notes Entered by: Da WORKMAN 02 May 2012 0935 ------- ------- ------- ------- -- f/u n/DELGADO Glover 05/02 Sick at Home/Quarter s [facility](F light Surgeon Office) [employer] [facility](Fam Med Cl Tm B Non-Ad) TELE CONSULT [id number] Notes Entered by: KAMERON GE 30 May 2012 1304 ------- ------- ------- ------- -- ACTIVE DUTY PT WITH RASH/ RIGHT ARM MISSY CORTEZ 05/30 Medical Group(F am Med Cl Tm B Non-Ad) [employer] [facility](Fam Med Cl Tm B Non-Ad) OUTPATIENT [id number] nurse clinic - rash// MISSY CORTEZ 05/30 Released w/o Limitations [employer](F am Med Cl Tm B Non-Ad) [employer]([facility] Surgeon Office) OUTPATIENT [id number] [facility] BEVERLY BATES Edgar 06/06 Released w/o Limitations [employer](F light Surgeon Office) [employer](Fam Med Cl Tm B Non-Ad) TELE CONSULT [id number] Notes Entered by: ALIYA MCKEON 04 Jul 2012 1012 ------- ------- ------- ------- -- Network Results -RHEUMA TOLOGY 05/28 MISSY CORTEZ 07/04 [employer](F am Med Cl Tm B Non-Ad) [employer]([facility]) OUTPATIENT [id number] PHA ZACHARY MCGEE 07/12 Released w/o Limitations [employer](P [facility] Cell) [employer](Fam Med Cl Tm B Non-Ad) OUTPATIENT [id number] MED CK, BP ROHIT NANCE 08/03 Released w/o Limitations [employer](F am Med Cl Tm B Non-Ad) [employer](Dep loyment Health Assessmen ts) OUTPATIENT [id number] Pre BREE VILLALOBOS 08/16 Released w/o Limitations [employer](D eployme Health Assessm ents) [employer]([facility]) OUTPATIENT [id number] Notes Entered by: William ROSE 06 Sep 2012 1231 ------- ------- ------- ------- -- VAIBHAV STOKES 09/06 Released w/o Limitations [facility]) [employer](Fam Med Cl Tm B Non-Ad) TELE CONSULT [id number] Notes Entered by: NEELAM CONROY 14 Sep 2012 1318 ------- ------- ------- ------- -- PRE DEPLOY ENT ROHIT MARTINES 09/[employer](F am Med Cl Tm B Non-Ad) [facility] OUTPATIENT [id number] Theater Provider 04/27 Released w/o Limitations Theater [facility](Fam Med Cl Tm B Non-Ad) TELE CONSULT [id number] Notes Entered by: KAMERON GE 04 Sep 2013 0837 ------- ------- ------- ------- -- ACTIVE DUTY/ GARCÍA Hernandez/ KEENAN GONZALEZ 09/04 Referred for Appointment [facility](F am Med Cl Tm B Non-Ad) [employer](Gai t Surgeon Office) OUTPATIENT [id number] [facility] SARAH JONES 09/04 Released w/o Limitations [facility](F light Surgeon Office) [facility] Group(Fam Med Cl Tm B Non-Ad) OUTPATIENT [id number] BP med refill ROHIT CLARK 09/06 Released w/o Limitations [facility](F am Med Cl Tm B Non-Ad) [facility] OUTPATIENT [id number] sleep LONG, DELVIDA L 09/06 Released w/o Limitations [employer](I ntegrat ed Behavio ral Hlth Cln) [facility](Dep loyment Health Assessmen ts) OUTPATIENT [id number] DHA3, 40 min BREE HOLT 09/14 Released w/o Limitations [employer](D eployme nt Health Assessm ents) [facility]) OUTPATIENT [id number] PHA-WHA TO BE COMPLET ED DIANA WEBSTER 09/14 Released w/o Limitations [employer](P BUENO Cell) [facility]) OUTPATIENT [id number] F/U sleep LONG, DELVIDA L 09/22 Released w/o Limitations [employer](I ntegrat ed Behavio ral Hlth Cln) [facility](Fam Med Cl Tm B Non-Ad) TELE CONSULT [id number] Notes Entered by: KAMERON GE 22 Sep 2013 1527 ------- ------- ------- ------- -- ACTIVE DUTY/ PULLED GROIN WHILE RUNNING KEENAN SHERIFF 09/22 Referred for Appointment [facility](F am Med Cl Tm B Non-Ad) [facility](Fam Med Cl Tm B Non-Ad) OUTPATIENT [id number] left groin pain ROHIT CLARK 09/25 Released with Work/Duty Limitations [employer] [facility](F am Med Cl Tm B Non-Ad) [facility]) OUTPATIENT [id number] F/U sleep LONG, DELVIDA L 09/28 Released w/o Limitations [facility] [employer](Fam Med Cl Tm B Non-Ad) TELE CONSULT [id number] Notes Entered by: KAMERON GE 20 Oct 2013 0946 ------- ------- ------- ------- -- ACTIVE DUTY/ POSSIBL E STREP THROAT KEENAN SHERIFF 10/20 Referred for Appointment [employer](F am Med Cl Tm B Non-Ad) [employer] [facility](Fam Med Cl Tm B Non-Ad) TELE CONSULT [id number] Notes Entered by: KEENAN SHERIFF 24 Oct 2013 1321 ------- ------- ------- ------- -- Lab results KEENAN SHERIFF 10/24 Referred for Appointment [employer](F am Med Cl Tm B Non-Ad) [employer] [facility](Fam Med Cl Tm B Non-Ad) TELE CONSULT [id number] Notes Entered by: Edgar PENA 01 Dec 2013 0743 ------- ------- ------- ------- -- ER F/U KEENAN SHERIFF 12/01 Immediate Referral [employer](F am Med Cl Tm B Non-Ad) [employer] [facility](Fam Med Cl Tm B Non-Ad) OUTPATIENT [id number] f/u - left ROHIT Jones 12/04 Sick at Home/Quarter s [employer](F am Med Cl Tm B Non-Ad) [employer](Fam Med Cl Tm B Non-Ad) OUTPATIENT [id number] F/U ROHIT Vidal 12/08 Released w/o Limitations [employer](F am Med Cl Tm B Non-Ad) [employer](Fam Med Cl Tm B Non-Ad) TELE CONSULT [id number] Notes Entered by: KAMERON EG 18 Jan 2014 1033 ------- ------- ------- ------- -- ACTIVE DUTY/ PROFILE ISSUE FLOR KWAN N 01/18 Referred for Appointment [employer](F am Med Cl Tm B Non-Ad) [employer](Fam Med Cl Tm B Non-Ad) TELE CONSULT [id number] Notes Entered by: BROOKE HERNADEZ 09 Mar 2014 1523 ------- ------- ------- ------- -- Out Process shannon bucio FLOR KWAN Evangelina 03/09 Released to Self Care [employer](F am Med Cl Tm B Non-Ad) [place] [address](AFN G 104 Med Sq-FM) OUTPATIENT [id number] Notes Entered by: Antoinette GUILLEN II 16 Jul 2016 0730 ------- ------- ------- ------- -- Short Non-Fly / Occupat [facility] MARTHA MONTERO 07/16 Released w/o Limitations [facility] [place] [address](A FNG 104 Med Sq-FM) [place] [address](AFN G 104 Med Sq-FM) OUTPATIENT [id number] Notes Entered by: MARCIA MEDEL 28 Nov 2016 0941 ------- ------- ------- ------- -- Med f/u 469 MARCIA MEDEL 11/28 Released with Work/Duty Limitations [facility] [place] [address](A FNG 104 Med Sq-FM) [place] [address](AFN G 104 Med Sq-FM) OUTPATIENT [id number] Notes Entered by: LY JACKSON 15 Jan 2017 1329 ------- ------- ------- ------- -- Provide r f/u JOHANNY BRADEN 01/15 Released w/o Limitations [facility] [place] [address](A FNG 104 Med Sq-FM) [place] [address](AFN G 104 Med Sq-FM) OUTPATIENT [id number] Notes Entered by: TREY BULLOCK 18 Mar 2017 1320 ------- ------- ------- ------- -- JOSE RAFAEL SHORE 03/18 Released with Work/Duty Limitations [facility] [place] [address](A FNG 104 Med Sq-FM) [place] [address](AFN G 104 Med Sq-FM) OUTPATIENT [id number] Notes Entered by: HOLLIE ALTMAN 09 Apr 2017 1726 ------- ------- ------- ------- -- MARTHA Esparza 04/09 Released w/o Limitations [facility] [place] [address](A FNG 104 Med Sq-FM) [place] [address](AFN G 104 Med Sq-FM) OUTPATIENT [id number] Notes Entered by: TREY BULLOCK 16 Apr 2017 1511 ------- ------- ------- ------- -- Luis Enrique mirza MD note review JOSE RAFAEL BULLOCK 04/16 Released with Work/Duty Limitations [facility] [place] [address](A FNG 104 Med Sq-FM) [place] [address](AFN G 104 Med Sq-FM) OUTPATIENT [id number] Notes Entered by: JOHANNY BRADEN 25 Feb 2018 1317 ------- ------- ------- ------- -- right Juan M dotsoni tis, RTD JOHANNY BRADEN 02/25 Released w/o Limitations [facility] [place] [address](A FNG 104 Med Sq-FM) [place] [address](AFN G 104 Med Sq-FM) OUTPATIENT [id number] Notes Entered by: JOHANNY BRADEN 15 Apr 2018 1026 ------- ------- ------- ------- -- Occ/Ski n exam and PHAQ JOHANNY BRADEN 04/15 Released w/o Limitations [facility] [place] [address](A FNG 104 Med Sq-FM) [place] [address](AFN G 104 Med Sq-FM) OUTPATIENT [id number] 7 Notes Entered by: MARICRUZ MONTERO 21 May 2018 1040 ------- ------- ------- ------- -- 469 f/u MARTHA MONTERO 05/21 Released w/o Limitations [facility] [place] [address](A FNG 104 Med Sq-FM) [place] [address](AFN G 104 Med Sq-FM) OUTPATIENT [id number] Notes Entered by: MARCIA MEDEL 17 Jun 2018 1443 ------- ------- ------- ------- -- right foot MARCIA MEDEL 06/17 Released with Work/Duty Limitations [facility] [place] [address](A FNG 104 Med Sq-FM) [place] [address](AFN G 104 Med Sq-FM) OUTPATIENT [id number] Notes Entered by: MARCIA MEDEL 01 Oct 2018 0949 ------- ------- ------- ------- -- follow up MARCIA Ordaz 10/01 Released with Work/Duty Limitations [facility] [place] [address](A FNG 104 Med Sq-FM) [facility], [place] [address](AFN G 104 Med Sq-FM) OUTPATIENT [id number] Notes Entered by: GIANFRANCO MARCIATIA DUMONT 08 Mar 2019 1449 ------- ------- ------- ------- -- R foot pain MARCIA MEDEL JULIA 03/08 Released with Work/Duty Limitations [facility] [place] [address](A FNG 104 Med Sq-FM) [place] [address](AFN G 104 Med Sq-FM) TELE CONSULT [id number] Notes Entered by: MARCIA MEDEL 09 Mar 2019 1020 ------- ------- ------- ------- -- foot pain MARCIA MEDEL 03/09 [facility] [place] [place] [address](A FNG 104 Med Sq-FM) [place] [address](AFN G 104 Med Sq-FM) OUTPATIENT [id number] Notes Entered by: SCOTT HINDS 09 Mar 2019 1439 ------- ------- ------- ------- -- Annual MSE / OH exams MARCIA MEDEL JULIA 03/09 Released with Work/Duty Limitations [facility] [place] [address](A FNG 104 Med Sq-FM) [place] [address](AFN G 104 Med Sq-FM) OUTPATIENT [id number] Notes Entered by: MARCIA MEDEL 21 Mar 2019 1022 ------- ------- ------- ------- -- JORGE LUIS GIANFRANCO MARCIA DUMONT 03/21 Released with Work/Duty Limitations [facility] [place] [address](A FNG 104 Med Sq-FM) [place] [address](AFN G 104 Med Sq-FM) TELE CONSULT [id number] Notes Entered by: MARCIA MEDEL 14 Apr 2019 1039 ------- ------- ------- ------- -- Op note MARCIA MEDEL 04/14 [facility] [place] [place] [address](A FNG 104 Med Sq-FM) [place] [address](AFN G 104 Med Sq-FM) TELE CONSULT [id number] Notes Entered by: MARCIA MEDEL 21 Apr 2019 1409 ------- ------- ------- ------- -- foot pain MARCIA MEDEL 04/20 [facility] [place] [place] [address](A FNG 104 Med Sq-FM) [facility], [place] [address](AFN G 104 Med Sq-FM) TELE CONSULT [id number] Notes Entered by: MARCIA MEDEL 26 Apr 2019 1249 ------- ------- ------- ------- -- R foot pain MARCIA MEDEL 04/25 [facility] [place] [place] [address](A FNG 104 Med Sq-FM) [place] [address](AFN G 104 Med Sq-FM) TELE CONSULT [id number] Notes Entered by: MARCIA MEDEL 17 May 2019 1151 ------- ------- ------- ------- -- foot pain MARCIA MEDEL 05/16 [facility] [place] [address](A FNG 104 Med Sq-FM) [place] [address](AFN G 104 Med Sq-FM) TELE CONSULT [id number] Notes Entered by: TREY BULLOCK 08 Jun 2019 0912 ------- ------- ------- ------- -- note review JOSE RAFAEL BULLOCK 06/07 [facility] [place] [place] [address](A FNG 104 Med Sq-FM) [place] [address](AFN G 104 Med Sq-FM) TELE CONSULT [id number] MARCIA MEDEL 08/14 [facility] [place] [place] [address](A FNG 104 Med Sq-FM) [place] [address](AFN G 104 Med Sq-FM) TELE CONSULT [id number] Notes Entered by: MARCIA MEDEL 12 Oct 2019 1405 ------- ------- ------- ------- -- follow up MARCIA MEDEL 10/11 [facility] [place] [address](A FNG 104 Med Sq-FM) [place] [address](AFN G 104 Med Sq-FM) OUTPATIENT [id number] Notes Entered by: MARCIA MEDEL 24 Oct 2019 0916 ------- ------- ------- ------- -- Right foot pain MARCIA MEDEL 10/23 Released with Work/Duty Limitations [facility] [place] [address](A FNG 104 Med Sq-FM) [place] [address](AFN G 104 Med Sq-FM) TELE CONSULT [id number] Notes Entered by: MARCIA MEDEL 09 Jan 2020 1459 ------- ------- ------- ------- -- R foot pain MARCIA MEDEL 01/08 [facility] [place] [address](A FNG 104 Med Sq-FM) [place] [address](AFN G 104 Med Sq-FM) TELE CONSULT [id number] Notes Entered by: MARCIA MEDEL 05 Mar 2020 0904 ------- ------- ------- ------- -- R foot pain MARCIA MEDEL 03/05 [facility] [place] [place] [address](A FNG 104 Med Sq-FM) [place] [address](AFN G 104 Med Sq-FM) OUTPATIENT [id number] MARCIA MEDEL 03/14 Released w/o Limitations [facility] [place] [address](A FNG 104 Med Sq-FM) [place] [address](AFN G 104 Med Sq-FM) OUTPATIENT [id number] Notes Entered by: MARCIA MEDEL 14 Mar 2020 1055 ------- ------- ------- ------- -- PHAQ MARCIA MEDEL 03/14 Released with Work/Duty Limitations [facility] [place] [address](A FNG 104 Med Sq-FM) [place] [address](AFN G 104 Med Sq-FM) TELE CONSULT [id number] Notes Entered by: MARCIA MEDEL 03 Apr 2020 1443 ------- ------- ------- ------- -- R foot pain MARCIA MEDEL 04/03 [facility] [place] [address](A FNG 104 Med Sq-FM) [place] [address](AFN G 104 Med Sq-FM) TELE CONSULT [id number] Notes Entered by: MARCIA MEDEL 09 Apr 2020 1056 ------- ------- ------- ------- -- return MARCIA MEDEL 04/09 [facility] [place] [address](A FNG 104 Med Sq-FM) [facility], [facility](AFN G 104 Med Sq-FM) OUTPATIENT [id number] Notes Entered by: RUTH SHIRLEY 24 Apr 2020 1247 ------- ------- ------- ------- -- Audiogr am /Respir ator Fit Test /[place] Questio nnaire/ HIV/Vit als/ Provide r([place]-Ph ysica MARCIA MEDEL NOONE 04/24 Released w/o Limitations [facility] [place] [address](A FNG 104 Med Sq-FM) [facility], [place] [address](AFN G 104 Med Sq-FM) TELE CONSULT [id number] Notes Entered by: MARCIA MEDEL 11 Jul 2020 1554 ------- ------- ------- ------- -- R foot pain MARCIA MEDEL 07/11 [facility] [place] [address](A FNG 104 Med Sq-FM) [facility], [place] [address](AFN G 104 Med Sq-FM) OUTPATIENT [id number] Notes Entered by: MARCIA MEDEL 10 Sep 2020 0936 ------- ------- ------- ------- -- NEVAEHID MARCIA MEDEL 09/10 Sick at Home/Quarter s [facility] [place] [address](A FNG 104 Med Sq-FM) [facility], [place] [address](AFN G 104 Med Sq-FM) TELE CONSULT [id number] MARCIA MEDEL 12/10 [facility] [place] [address](A FNG 104 Med Sq-FM) [place] [address](AFN G 104 Med Sq-FM) TELE CONSULT [id number] MARCIA MEDEL 01/01 [facility] [place] [address](A FNG 104 Med Sq-FM) [place] [address](AFN G 104 Med Sq-FM) TELE CONSULT [id number] MARCIA MEDEL 01/07 [facility] [place] [place] [address](A FNG 104 Med Sq-FM) [place] [address](AFN G 104 Med Sq-FM) TELE CONSULT [id number] MARCIA MEDELCONNIE 02/05 [facility] [place] [address](A FNG 104 Med Sq-FM) [place] [address](AFN G 104 Med Sq-FM) OUTPATIENT [id number] Notes Entered by: MARCIA MEDEL JULIA 25 Feb 2021 1434 ------- ------- ------- ------- -- JORGE LUIS MARCIA MEDEL JULIA 02/25 Released with Work/Duty Limitations [facility] [place] [address](A FNG 104 Med Sq-FM) [place] [address](AFN G 104 Med Sq-FM) OUTPATIENT [id number] Notes Entered by: SARAH MCPHERSON 24 Apr 2021 1402 ------- ------- ------- ------- -- Occupat ional Health JOSE RAFAEL Baig 04/24 Released with Work/Duty Limitations [facility] [place] [address](A FNG 104 Med Sq-FM) [place] [address](AFN G 104 Med Sq-FM) TELE CONSULT [id number] MARCIA MEDEL JULIA 09/24 [facility] [place] [place] [address](A FNG 104 Med Sq-FM) [place] [address](AFN G 104 Med Sq-FM) TELE CONSULT [id number] MARCIA MEDEL 10/22 [facility] [place] [address](A FNG 104 Med Sq-FM) [place] [address](AFN G 104 Med Sq-FM) TELE CONSULT [id number] MARCIA MEDEL 01/15 [facility] [place] [place] [address](A FNG 104 Med Sq-FM) [place] [address](AFN G 104 Med Sq-FM) TELE CONSULT [id number] 5 MARCIA MEDEL 03/13 [facility] [place] [place] [address](A FNG 104 Med Sq-FM) [place] [address](AFN G 104 Med Sq-FM) OUTPATIENT [id number] Notes Entered by: MARCIA MEDELCONNIE 17 Mar 2022 1610 ------- ------- ------- ------- -- JORGE LUIS MARCIA MEDELCONNIE 03/17 Released with Work/Duty Limitations [facility] [place] [address](A FNG 104 Med Sq-FM) [place] [address](AFN G 104 Med Sq-FM) OUTPATIENT [id number] Notes Entered by: MALVIN HARTLEY 16 Apr 2022 1641 ------- ------- ------- ------- -- KEKE Armstrong 04/16 Released w/o Limitations [facility] [place] [address](A FNG 104 Med Sq-FM) [facility] Outpatient Encounter [id number] 04/08 [facility] [id number] MDG Between Visit [id number] 04/20 Discharge Disposition: Home or Self Care [id number] MDG [facility] Outpatient Encounter [id number] 05/18 [facility] Encounter [id number] [facility] Out[facility] Encounter [id number] 03/02 [facility] OFFICE O/P NEW MOD 45 MIN [id number] Diagnos is: ICD-10- CM I10 Essenti al (primar y) hyperte GERARD Fortune 03/02 [facility] Out[facility] Encounter [id number] [facility] CASE MANAGEMENT [id number] Diagnos is: ICD-10- CM Z71.89 Other specifi ed counselor [employer] JOY Contreras 03/03 [facility] Out[facility] Encounter [id number] 03/07 [facility] Encounter [id number] 03/10 [facility] Encounter [id number] 03/10 [facility] Outpatient Encounter [id number] 03/13 [facility] CASE MANAGEMENT [id number] Diagnos is: ICD-10- CM Z71.89 Other specifi ed counselor [employer] JOY Contreras 03/20 [facility] CASE MANAGEMENT [id number] Diagnos is: ICD-10- CM Z71.89 Other specifi ed counselor [employer] JOY Contreras 03/27 [facility] Outpatient Encounter [id number] 03/27 [facility] Outpatient Encounter [id number] 03/29 [facility] Procedures Combined list of: 1) Procedures from Department of Veterans Affairs facilities going back up to thelast 18 months, not all [place] non-surgical procedures are included; 2) All procedures [...] RANGE OF MOTION AND FLEXIBILITY 2005 DoD VIS FUNCT SCREEN,AUTOMAT/SEMI- AUTOMAT BILAT QUANT DETERM VISUAL ACUITY,OCULAR ALIGN,COLOR VISION,PSEUDOISOCHRO MAT PLATES,& FIELD VIS (MAY INC ALL/SOME SCRN DETERM FOR CONTRAST SENSITIV,VIS UND GLARE) 2005 [facility] SCREENING TEST OF VISUAL ACUITY, QUANTITATIVE, BILATERAL 2005 [facility] INFLUENZA VIRUS VACCINE, TRIVALENT, LIVE (LAIV3), FOR INTRANASAL USE 2004 DoD SCREENING TEST OF VISUAL ACUITY, QUANTITATIVE, BILATERAL 2003 DoD PURE TONE AUDIOMETRY (THRESHOLD); AIR ONLY 2022 DoD EDUCATIONAL SUPPLIES, SUCH BOOKS, TAPES, AND PAMPHLETS, FOR THE PATIENT'S EDUCATION AT COST TO PHYSICIAN OR OTHER QUALIFIED HEALTH NEWS PRODUCTION ASSISTANT 2003 DoD SCREENING TEST, PURE TONE, AIR ONLY 2013 [facility] NEUROPSYCHOLOGICAL TESTING (EG, [place] CARD SORTING TEST), ADMINISTERED BY A COMPUTER, WITH QUALIFIED HEALTH NEWS PRODUCTION ASSISTANT INTERPRETATION AND REPORT 2012 DoD PURE TONE [...] DoD UNLISTED PULMONARY SERVICE OR PROCEDURE 2010 [facility] PHYSICAL THERAPY RE-EVALUATION 2010 [facility] APPLICATION OF A MODALITY TO 1 OR MORE AREAS; ULTRASOUND, EACH 15 MINUTES 2010 [facility] APPLICATION OF A MODALITY TO 1 OR MORE AREAS; HOT OR COLD PACKS 2010 [facility] APPLICATION OF A MODALITY TO 1 OR MORE AREAS; HOT OR COLD PACKS 2010 [facility] APPLICATION OF A MODALITY TO 1 OR MORE AREAS; HOT OR COLD PACKS 2010 [facility] PHYSICAL THERAPY EVALUATION 2010 [facility] UNLISTED PULMONARY SERVICE OR PROCEDURE 2009 [facility] SCREENING TEST, PURE TONE, AIR ONLY 2009 [facility] TELE ASSESS & MGT SRV PROV QUAL NONPHYS HLTH CARE PRO TO EST PAT,PARENT,GUARD NOT ORIG REL ASSESS & MGT SRV PROV W/IN PREV 7 DAYS NOR LEAD ASSESS & MGT SRV/PX W/IN NXT 24 HR/SOON APT;5-10 MIN MED DIS 2009 [facility] CULTURE, BACTERIAL, URINE; QUANTITATIVE, SENSITIVITY STUDY 2008 [facility] INJECTION, DIPHENHYDRAMINE HCL, UP TO 50 MG 2008 [facility] PURE TONE AUDIOMETRY (THRESHOLD); AIR ONLY 2008 [facility] Spirometry Spirometry 43157 2013 SARAH JONES [facility] Audiogram (Screening) Audiogram (Screening) 74565 2013 SARAH JONES [facility] Psychometric Neuropsych Testing Battery Admin By Computer Psychometric Neuropsych Testing Battery Admin By Computer 99625 2012 ABHISHEK MAS [facility] Threshold Audiogram (Pure Tone) Threshold Audiogram (Pure Tone) 63866 2012 BEVERLY BATES [facility] Pulmonary Function Tests Pulmonary Function Tests 68019 2012 BEVERLY BATES [facility] IV Infusion For Hydration Each Additional Hour IV Infusion For Hydration Each Additional Hour 15428 2012 DEJA LEOS [facility] IV Infusion For Hydration 31 Minutes To 1 Hour IV Infusion For Hydration 31 Minutes To 1 Hour 94360 2012 DEJA LEOS [facility] Intravenous Catheter Placement Intravenous Catheter Placement 42217 2012 DEJA LEOS [facility] Physical Therapy Service Re-Evaluation Physical Therapy Service Re-Evaluation 20706 2011 SUMIT ROSEN [facility] Modalities Heat Hot Packs Modalities Heat Hot Packs 94329 2011 MARCIAL, LUIS [facility] Physical Therapy Neuromuscular Re-education Physical Therapy Neuromuscular Re-education 99824 2011 MARCIAL, LUIS DoD Physical Therapy: ___ Se ion Segments, 15 Minutes Each Physical Therapy: ___ Session Segments, 15 Minutes Each 75828 2011 MARCIAL, LUIS DoD Modalities Heat Hot Packs Modalities Heat Hot Packs 14965 2011 BRISA GONZALEZ [facility] Physical Therapy Neuromuscular Re-education Physical Therapy Neuromuscular Re-education 56783 2011 BRISA GONZALEZ [facility] Physical Therapy: ___ Se ion Segments, 15 Minutes Each Physical Therapy: ___ Session Segments, 15 Minutes Each 03350 2011 BRISA GONZALEZ [facility] Modalities Heat Hot Packs Modalities Heat Hot Packs 82118 2011 NATALIIA GUERIN Physical Therapy Neuromuscular Re-education Physical Therapy Neuromuscular Re-education 57067 2011 NATALIIA GUERIN Physical Therapy: ___ Se ion Segments, 15 Minutes Each Physical Therapy: ___ Session Segments, 15 Minutes Each 40310 2011 NATALIIA GUERIN Modalities Heat Hot Packs Modalities Heat Hot Packs 74668 2011 MARCIAL, PEDRO [facility] Physical Therapy: ___ Se ion Segments, 15 Minutes Each Physical Therapy: ___ Session Segments, 15 Minutes Each 18434 2011 MARCIAL, LUIS [facility] Physical Therapy Neuromuscular Re-education Physical Therapy Neuromuscular Re-education 45632 2011 MARCIAL, LUIS [facility] Modalities Heat Hot Packs Modalities Heat Hot Packs 77234 2010 MARCIAL, LUIS [facility] Physical Therapy Neuromuscular Re-education Physical Therapy Neuromuscular Re-education 72359 2010 MARCIAL, LUIS [facility] Physical Therapy: ___ Se ion Segments, 15 Minutes Each Physical Therapy: ___ Session Segments, 15 Minutes Each 88581 2010 MARCIAL, LUIS [facility] Physical Therapy Service Re-Evaluation Physical Therapy Service Re-Evaluation 23314 2010 SUMIT ROSEN E [facility] Physical Therapy Neuromuscular Re-education Physical Therapy Neuromuscular Re-education 72679 2010 MARCIAL, LUIS DoD Modalities Heat Hot Packs Modalities Heat Hot Packs 31862 2010 MARCIAL, LUIS DoD Physical Therapy: ___ Se ion Segments, 15 Minutes Each Physical Therapy: ___ Session Segments, 15 Minutes Each 21291 2010 MARCIAL, LUIS DoD Modalities Heat Hot Packs Modalities Heat Hot Packs 35250 2010 MARCIAL, LUIS DoD Physical Therapy: ___ Se ion Segments, 15 Minutes Each Physical Therapy: ___ Session Segments, 15 Minutes Each 93921 2010 MARCIAL, LUIS DoD Physical Therapy Neuromuscular Re-education Physical Therapy Neuromuscular Re-education 29799 2010 MARCIAL, LUIS DoD Physical Therapy Neuromuscular Re-education Physical Therapy Neuromuscular Re-education 80896 2010 MARCIAL, LUIS DoD Modalities Heat Hot Packs Modalities Heat Hot Packs 61561 2010 MARCIAL, LUIS DoD Physical Therapy: ___ Se ion Segments, 15 Minutes Each Physical Therapy: ___ Session Segments, 15 Minutes Each 22655 2010 MARCIAL, LUIS DoD Modalities Heat Hot Packs Modalities Heat Hot Packs 38099 2010 BRISA GONZALEZ Physical Therapy Neuromuscular Re-education Physical Therapy Neuromuscular Re-education 76755 2010 BRISA GONZALEZ [facility] Physical Therapy: ___ Se ion Segments, 15 Minutes Each Physical Therapy: ___ Session Segments, 15 Minutes Each 17890 2010 BRISA GONZALEZ Pulmonary Function Tests Pulmonary Function Tests 11494 2010 LEIGH TAYLOR [facility] Physical Therapy Service Re-Evaluation Physical Therapy Service Re-Evaluation 38802 2010 SILASSUMIT E [place] Modalities Heat Hot Packs Modalities Heat Hot Packs 25469 2010 BRISA GONZALEZ Modalities Ultrasound Modalities Ultrasound 20857 2010 BRISA GONZALEZ A isted Exercises For ROM Assisted Exercises [place] ROM 81753 2010 BRISA GONZALEZ Modalities Heat Hot Packs Modalities Heat Hot Packs 80906 2010 MARCIAL, LUIS DoD Modalities Ultrasound Modalities Ultrasound 70202 2010 MARCIAL, LUIS DoD A isted Exercises For ROM Assisted Exercises For ROM 45929 2010 MARCIAL, LUIS DoD Modalities Ultrasound Modalities Ultrasound 90484 2010 GUERIN, NATALIIA A DoD Modalities Heat Hot Packs Modalities Heat Hot Packs 84308 2010 GUERIN, NATALIIA A DoD A isted Exercises For ROM Assisted Exercises For ROM 92009 2010 GUERIN, NATALIIA A DoD Modalities Heat Hot Packs Modalities Heat Hot Packs 87859 2010 MARCIAL, LUIS DoD Modalities Ultrasound Modalities Ultrasound 64662 2010 MARCIAL, LUIS DoD A isted Exercises For ROM Assisted Exercises For ROM 36113 2010 MARCIAL, LUIS DoD Physical Therapy Service Evaluation Physical Therapy Service Evaluation 83241 2010 [facility] Brenda Onofre Pulmonary Function Tests Pulmonary Function Tests 75122 2009 STERLING GEE Threshold Audiogram (Pure Tone) Threshold Audiogram (Pure Tone) 81425 2009 ST[place] GEE Audiogram (Screening) Audiogram (Screening) 36382 2009 RAMILA DAMIAN Non-Physician Phone Call To Patient/Provider Brief (5-10min) Non-Physician Phone Call To Patient/Provider Brief (5-10min) 10246 2009 JONEL BUSBY Culture, bacterial, urine; quantitative, sensitivity study 2008 BRISA AHUJA strep swab done DoD Threshold Audiogram (Pure Tone) Threshold Audiogram (Pure Tone) 29513 2008 JUANJO CLEARY Threshold Audiogram (Pure Tone) Threshold Audiogram (Pure Tone) 96049 2007 MARYANNE SANTOS Services Provided On An Emergency Basis In The Office 2006 JAIME LAIRD Services Provided On An Emergency Basis In The Office 2006 LATIA CARVAJAL Ophthalmological New Patient Start Intermediate Level Care Ophthalmological New Patient Start Intermediate Level Care 51446 2006 LATIA CARVAJAL Threshold Audiogram (Pure Tone) Threshold Audiogram (Pure Tone) 90961 2006 MARYANNE SANTOS [facility] Threshold Audiogram (Pure Tone) Threshold Audiogram (Pure Tone) 27230 KEKE SNYDER [facility] Social History Combined list of available smoking, tobacco, and other social history from 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 Social History Type Response Date Comment Sourc e Tobacco smoking status NHIS GA-TOBACCO USE FORMER CIGARETTES 03/02/2024 [facility] History of tobacco use GA-TOBACCO NEVER USED OTHER TYPE 03/02/2024 [facility] This section is an empty social history section. [facility] Center Assessment and Plan Combined list of future care activities from [facility] of Defense and Veterans Affairs facilities (e.g., assessment and plan notes, appointments, orders, and referrals). Additional future care activities may be listed in the Plan of Care section. Result Assessment and Plan Date Source Assessment and Plan No data available for this section 03/31/2024 Ambulatory Pharmacy Plan of Care List of future care activities from Department of Veterans Affairs facilities. Additional future care activities may be listed in the Assessment and Plan section. Date/Time Care Activity Care Activity Detail Facili ty 05/29/2024 AMBULATORY - MEDICINE AMBULATORY - MEDICI NE [facility] 03/16/2024 Consult Order [facility] Cons Watch Leader's Choice [facility] Functional Status Combined list of recent functional and cognitive assessments recorded at [facility] [place] Functional [place] Measurement (FIM) Scale: 1 = Total Assistance (Subject = 0% +), 2 = Maximal Assistance (Subject = 25% +), 3 = Moderate Assistance (Subject = 50% +), 4 = Minimal Assistance (Subject = 75% +), 5 = Supervision, 6 = Modified Portage (Device), 7 = Complete Port[place] (Timely, Safely). Assessment Date/Time Source Assessment Type Assessment Skill Assessment Score Assessment Details No data available for this section
--- OUTSIDE RECORDS SUMMARY | 2024-03-31 15:24 | XMS_ITS | Clinical Summary ---
Author Organization [facility] Facility Address [address] [place] [address] Care Team Providers Care Porcelain Waxer Name Role Phone Unavailable Primary Care Provider [...]
--- NOTE | 2024-03-31 15:27 | A.OFFVIS_ITS ---
Intake Visit Reasons: 6m/labs(Testo Pending) Intake Note: Patient is present for 6M/LABS TESTO PENDING Urology Medication:TADALAFIL,TESTOSTERONE Antibiotic Allergy:NONE Blood Thinner:NONE Manager [employer] Required: No Allergies No Known Allergies [No Known Allergies*] Allergy (Verified 04/24/24 09:10) HPI Comments Details: Gerard is a very pleasant male. They are a patient of Dr Hernandez. They are seen in the office today for the following urologic conditions. - hypogonadism - erectile dysfunction Lab work high Tells me he took over injecting from his and has been doing half a cc 2 times a week He will cut back to half a cc once a week Repeat in six-month Continue with 0.5 cc weekly Refill tadalafil Six month follow-up labs Hypogonadism: Low T in test in January 2019 Current therapy testosterone injections 0.5 cc/week - injection day Wednesday - lab work /Wednesday He presents today for further evaluation of complaints regarding hypogonadism. Initial symptoms include erectile dysfunction No decreased libido Yes change in mood/depression Yes in muscle size/strength Yes increased fatigue/malaise Yes increased abdominal fat No tender breasts/gynecomastia No hair loss No osteopenia No The onset of symptoms has been gradual. Associate conditions include obstructive sleep apnea No CAD No obesity No stress - financial, family, employment No heavy alcohol or illicit drug use No Laboratory results 02/02 T 107 05/04 330 T, 06/05 275, 10/05 T 330, 02/04 330, 06/08 365 50 0.65 Current therapy includes none. Therapeutic plan injectable testosterone Erectile dysfunction Partial response to 5 mg tadalafil daily Increased to 10 mg Prescription provided [facility] Medical History Tubular adenoma of colon GERD (gastroesophageal reflux disease) Anxiety with depression PTSD (post-traumatic stress disorder) Lumbar stenosis HTN (hypertension) Sleep apnea Hypogonadism in male BPH (benign prostatic hyperplasia) Renal calculi CKD (chronic kidney disease) Right foot pain Surgical History (Updated 04/24/24 @ 09:13 by Jose Briceño MD) Incarcerated umbilical hernia (04/14/24) Status post right rotator cuff repair Status post right foot surgery Family History Father No problems noted. Mother No problems noted. 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 Cognitive needs: No Hearing needs: No Vision needs: No Review of Systems Const Denies chills and Denies fever(s) Card Reports no additional complaints and Denies syncope Resp Denies cough GI Denies abdominal pain and Denies heartburn Reports as per HPI and Denies change in libido Neuro Denies syncope Psych Denies change in libido Endo Denies change in libido Physical Exam Const General: cooperative, healthy appearing, comfortable and no acute distress Orientation/consciousness: patient oriented x3 HEENT Face and sinus: Yes normal facial exam Mouth: moist mucous membranes Neck Neck: Yes normal visual inspection, Yes full ROM and Yes trachea midline Chest Chest palpation & inspection: normal inspection of the chest Resp Effort & Inspection: normal respiratory effort, able to speak in complete sentences and no respiratory distress GI Inspection: Yes normal to inspection Back/Spine/Pelvis Cervical Spine: normal cervical lordosis Thoracic/Lumbar Spine: thoracic and lumbar spine normal to inspection Skin General skin exam: no rashes or lesions noted Neuro General: patient oriented x3, gait normal, tone normal and moves all extremities Extrem General: Yes normal to inspection and Yes capillary refill normal Assessment & Plan Assessment & Plan (1) Erectile dysfunction due to arterial insufficiency: Code(s): N52.01 - Erectile dysfunction due to arterial insufficiency Category: Medical (2) Hypogonadism in male: Comment: Failed clomiphene Code(s): E29.1 - Testicular hypofunction Category: Medical Plan six-month follow-up lab work Orders: Orders Complete Blood Count no Diff 6 Months E29.1 - Testicular hypofunction Prostate Specific Antigen 6 Months E29.1 - Testicular hypofunction Testosterone, Total 6 Months E29.1 - Testicular hypofunction Medications: Refilled testosterone cypionate (Depo-Testosterone) 100 mg (0.5 mL) subcut QWEEK 2 mL 5RF 4 weeks E29.1 - Testicular hypofunction, [id number] tadalafil 20 mg PO ONCE PRN 30 tabs 1RF sexual activity 30 days N52.01 - Erectile dysfunction due to arterial insufficiency Patient Instructions: This note is constructed using voice recognition software. While every effort has been made to ensure accuracy handtools repairer errors may have been included. Imaging studies, laboratory and physical exam results were discussed and reviewed in detail. No major barriers to patient understanding were identified. An opportunity to ask questions regarding the treatment plan was provided. All questions were answered. The patient expressed understanding and agreement with the above treatment plan. The patient is aware they should contact our office by phone for worsening of their current condition or the appearance of new urologic symptoms. Compliance is encouraged with any medications and followup testing that is ordered. It is a privilege to participate in the urologic care of your patient. If you have any questions or concerns regarding treatment for the above conditions, or other urologic issues, please do not hesitate to contact me. The office telephone contact is [phone]. Sincerely, Dr Zach Chua MD, [facility] - Urology Compassionate Specialist Care for the Genitourinary System Coding Level of Care Code Est Pt Level 3 (07321) Diagnoses Erectile dysfunction due to arterial insufficiency N52.01 Hypogonadism in male E29.1
== END 2024-03-31 16:30 | disposition home or self-care (01) ==
PROVIDERS: PCP Nurse Practitioner Family; Visit Provider Urology
DX: N52.01 Erectile dysfunction due to arterial insufficiency (principal); E29.1 Testicular hypofunction
CPT/HCPCS: 99213

== ENCOUNTER → 2024-03-31 15:20 | Outpatient (BNVA) | payer OTHER, SELFPAY | PROVIDERS: PCP Nurse Practitioner Family; Visit Provider Urology | DX: N52.01 Erectile dysfunction due to arterial insufficiency (principal); E29.1 Testicular hypofunction | CPT/HCPCS: 99212 ==

== ENCOUNTER 2024-04-11 13:20 | Outpatient (REF) | payer OTHER, SELFPAY ==
--- NOTE | ~2024-04-11 | XR_ITS ---
CLINICAL HISTORY: M25.511 - Pain in right shoulder 3 view right shoulder Comparison: None Findings: Bones intact. No dislocations. No significant loss of joint space or osteophytes. No erosions. No radiopaque foreign body. IMPRESSION: 1. No acute findings This document has been electronically signed by: Kwasi Howard MD on 04/12/2024 12:12:56
--- NOTE | ~2024-04-11 | XR_ITS ---
CLINICAL HISTORY: M25.512 - Pain in left shoulder 3 view left shoulder Comparison: None Findings: No fractures or dislocations. No significant arthritic change. No erosions. No radiopaque foreign body. IMPRESSION: 1. No acute findings This document has been electronically signed by: Kwasi Howard MD on 04/12/2024 12:09:04
== END 2024-04-11 13:21 | disposition home or self-care (01) ==
LOC: HO.HOSX 13:20
PROVIDERS: PCP Nurse Practitioner Family
DX: M25.512 Pain in left shoulder (principal); M25.511 Pain in right shoulder; M75.102 Unspecified rotator cuff tear or rupture of left shoulder, not specified as traumatic; Z98.890 Other specified postprocedural states
CPT/HCPCS: 73030; 99212

== ENCOUNTER 2024-04-11 13:20 | Outpatient (AMB) | payer OTHER, SELFPAY ==
--- NOTE | 2024-04-11 13:47 | A.OFFVIS_ITS ---
Vital Signs 04/11/24 13:48 Height 5 ft 10 in Weight 242 lb BMI 34.7 Intake Visit Reasons: New Prob - Bilateral Shoulder Pain Intake Note: Gerard is a 43 year old right hand dominant male who presents today for a new problem visit with complaints of bilateral shoulder pain. He was recently seen for right coronoid process fracture and lateral epicondylitis. Patient reports that he has had ongoing pain in the shoulders for quite some time now. He has had previous left shoulder dislocation that was quite difficult to reduce, he was told that he had many tears in the shoulder but never had surgery to repair. The right shoulder also dislocated but was surgically repaired in about 2021 with [facility]. This shoulder felt better after the surgery but has increased over time since. History of cortisone injections - not interested in having injections at this time. no recent MRI He mentions that he is having locking and catching of the right middle finger. Allergies No Known Allergies [No Known Allergies*] Allergy (Verified 03/31/24 15:31) HPI HPI New Prob - Bilateral Shoulder Pain: Details: Gerard is a 43 year old right hand dominant male who presents today for a new problem visit with complaints of bilateral shoulder pain. He was recently seen for right coronoid process fracture and lateral epicondylitis. Patient reports that he has had ongoing pain in the shoulders for quite some time now. He has had previous left shoulder dislocation that was quite difficult to reduce, he was told that he had many tears in the shoulder but never had surgery to repair. The right shoulder also dislocated but was surgically repaired in about 2021 with [facility]. This shoulder felt better after the surgery but has increased over time since. History of cortisone injections - not interested in having injections at this time. no recent MRI He mentions that he is having locking and catching of the right middle finger. [facility] Medical History (Updated 04/11/24 @ 16:29 by KHANG Rodas) Tubular adenoma of colon GERD (gastroesophageal reflux disease) Anxiety with depression PTSD (post-traumatic stress disorder) Lumbar stenosis HTN (hypertension) Sleep apnea Hypogonadism in male BPH (benign prostatic hyperplasia) Renal calculi CKD (chronic kidney disease) Right foot pain Surgical History (Updated 03/29/24 @ 09:32 by Jose Briceño MD) Status post right rotator cuff repair Status post right foot surgery Family History Father No problems noted. Mother No problems noted. 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 Cognitive needs: No Hearing needs: No Vision needs: No Review of Systems Const All systems reviewed & are unremarkable except as noted in HPI and below Physical Exam Vital Signs: BMI result Body Mass Index 34.7 Extrem Other: Patient's left shoulder normal to inspection No erythema, ecchymosis, edema noted No lacerations, abrasions, open areas No evidence of infection No tenderness to palpation of the left shoulder Patient is able to forward flex the left shoulder to 90 degrees with minimal discomfort, but reports discomfort beyond this Patient was able to externally rotate the left shoulder to approximately 60 degrees without difficulty Positive empty can on the left Negative belly Press in the left Positive lift-off on the left Distal sensation intact Capillary refill brisk Results Reviewed Results Reviewed: X-rays obtained in the office today and independently reviewed by me, Harshal Coronel PA-C, demonstrate no fracture or acute bony abnormality of bilateral shoulders. Assessment & Plan Assessment & Plan (1) Painful arc syndrome of left shoulder: Code(s): M75.102 - Unspecified rotator cuff tear or rupture of left shoulder, not specified as traumatic Category: Medical Plan 1. Painful arc syndrome of left shoulder Patient does report dislocation ?many years ago? the took many hours to reduce At this time, due to patient's injury history and current symptoms, I feel MRI of the left shoulder is the best way to assess the soft tissue structures and what potential injuries he may have MRI ordered Patient will follow-up after MRI for results review and discussion of further treatment options if indicated, sooner with any acute concerns Orders: Orders XR shoulder LT min 2V Today M25.512 - Pain in left shoulder XR shoulder RT min 2V Today M25.511 - Pain in right shoulder MR shoulder LT wo con Today S46.009A - Unspecified injury of muscle(s) and tendon(s) of the rotator cuff of unspecified shoulder, initial encounter Coding Level of Care Code Est Pt Level 3 (88311) Diagnoses Painful arc syndrome of left shoulder M75.102
[2024-04-11 13:48] VITALS: BMI 34.7
--- OUTSIDE RECORDS SUMMARY | 2024-04-11 16:22 | XMS_ITS | Encounter Summary ---
Author Organization [facility] Address [address] [place] [address] Care Team Providers Care Equal Opportunity Assistant Name Role Phone Elmo Moreno NP Primary Care Provider + [phone] Reason for Referral * Imaging (Routine) - Closed Specialty Diagnoses / Procedures Referred By Contac t Referred To Contact Radiology Diagnoses Low back pain radiating to right leg Procedures MR Lumbar Spine wo Contrast Mally John PA [address] [place] [address] Phone: tel: fax: Radiology Department [address] Phone: tel: fax: Referral ID Status Reason Start Date Expiration Date Visits Re quested Visits Authorized [id number] Closed 03/20/2024 03/20/2025 1 1 Reason for Visit * Imaging (Routine) - Closed Specialty Diagnoses / Procedures Referred By Contac t Referred To Contact Radiology Diagnoses Low back pain radiating to right leg Procedures MR Lumbar Spine wo Contrast Mally John PA [address] [place] [address], [address] Phone: tel: fax: Radiology Department - [address] Phone: tel: fax: Referral ID Status Reason Start Date Expiration Date Visits Re quested Visits Authorized [id number] Closed 03/20/2024 03/20/2025 1 1 Encounter Details Date Type Department Care Team (Latest Contact Info) Description 03/27/2024 11:30 AM EST - 03/27/2024 11:59 PM EST Hospital Encounter Radiology Department - [address] [address] Low back pain radiating to right leg [...] 25 gauge x 5/8 syringe BD Disp [place] 25G X 5/8 Misc USE DIRECTED WEEKLY [...] Signed Date: 03/27/2024 15:51 ET Workstation ID: [id number] Transcribed By: Self Edit Transcribed Date: 03/27/2024 [...] Signed Date: 03/27/2024 15:51 ET Workstation ID: [id number] Transcribed By: Self Edit Transcribed Date: 03/27/2024 15:44 ET us Mally QUIÑONEZ IMG MRI PROCEDURES Final R esult documented in this encounter Visit Diagnoses Diagnosis Low back pain radiating to right leg Lumbago documented in this encounter Care Teams Equal Opportunity Assistant Relationship Specialty Start Date End Date Elmo Moreno NP [address] [place], [place] PCP - General 05/15/22 documented as of this encounter
--- OUTSIDE RECORDS SUMMARY | 2024-04-11 16:22 | XMS_ITS | Encounter Summary ---
Author Organization [facility] Address [address] [place] [address] Care Team Providers Care Bread Jockey Name Role Phone Elmo Moreno NP Primary Care Provider Encounter Details Date Type Department Care Team ([facility] Contact Info) Description 03/30/2024 Telephone Neurosurgery [facility] [address] [place] [phone] Mally John PA [address], [address] [place] [address] Social History Tobacco Use Types Packs/Day Years [...] on filedocumented in this encounter Care Teams Bread Jockey Relationship Specialty Start Date End Date Elmo Moreno NP [address] [facility] [place], [place] PCP - General 05/15/22 documented as of this encounter
--- OUTSIDE RECORDS SUMMARY | 2024-04-11 16:22 | XMS_ITS | Encounter Summary ---
Author Organization [facility] Address [address] [place] [address] Care Team Providers Care Box Car Washer Name Role Phone Sterling Moreno NP Primary Care Provider + [phone] Reason for Referral * Imaging (Routine) - Closed Specialty Diagnoses / Procedures Referred By Contac t Referred To Contact Radiology Diagnoses Low back pain radiating to right leg Procedures MR Lumbar Spine wo Contrast Mally John PA [address] [place] [address] Phone: tel: fax: Radiology Department [address] Phone: tel: fax: Referral ID Status Reason Start Date Expiration Date Visits Re quested Visits Authorized [id number] Closed 03/20/2024 03/20/2025 1 1 * Imaging (Routine) - Authorized Specialty Diagnoses / Procedures Referred By Contac t Referred To Contact Radiology Diagnoses Sacroiliitis (CMS/HCC) Procedures IR Inj Anes/Steroid Nerve Sacroiliac Joint Right Mally John PA [address] [facility], [address] [place] [address] Phone: tel: fax: [facility] Interventional Radiology [address] [place] [address] Phone: tel: Referral ID Status Reason Start Date Expiration Date V isits Requested Visits Authorized [id number] Authorized 03/20/2024 03/20/2025 1 1 Reason for Visit * Reason Comments Sacral Iliac Joint Pain Eval for possibl e repeat injection Encounter Details Date Type Department Care Team (Late st Contact Info) Description 03/20/2024 10:15 AM EST Office Visit Neurosurgery [place] [facility] [address] [place] [address] Mally John PA [address] [facility], [address] [place] [address] Sacroiliitis (CMS/HCC) (Primary Dx); Low back pain [...] 25 gauge x 5/8 syringe BD Disp [place] 25G X 5/8 Misc
USE DIRECTED WEEKLY [...] PM EST [facility] Neurosurgical [place] documented in this encounter Plan of Treatment [...] Signed Date: 03/27/2024 15:51 ET Workstation ID: [id number] Transcribed By: Self Edit Transcribed Date: 03/27/2024 [...] Signed Date: 03/27/2024 15:51 ET Workstation ID: [id number] Transcribed By: Self Edit Transcribed Date: 03/27/2024 [...] 03/20/2024 added in this encounter Care Teams Box Car Washer Relationship Specialty Start Date End Date Sterling Moreno NP [address] [place], [place] PCP - General 05/15/22 documented as of this encounter
--- OUTSIDE RECORDS SUMMARY | 2024-04-11 16:22 | XMS_ITS | Clinical Summary ---
Author Organization [facility] Address [address] [place] [address] Care Team Providers Care Telephone Station Installer Name Role Phone Elmo Moreno Primary Care Provider [phone] Allergies No known active allergies Medications Medication [...] Advance Directives For more information, please contact: [phone] Latest Code Status on File Code Status Date Activated Date Inactivated Comments Full Code 03/18/2020 12:11 PM 03/18/2020 9:28 PM This c ode status was ascertained in the following way: discussion with patient . Care Teams Telephone Station Installer Relationship Specialty Start Date End Date Elmo Moreno: [id number] [address] [facility] [place] [address] PCP - General Family Medicine 03/07/20
--- OUTSIDE RECORDS SUMMARY | 2024-04-11 16:22 | XMS_ITS | Encounter Summary ---
Author Organization [facility] Address [address] [place] [address] Care Team Providers Care Hand Alterations Tailor Name Role Phone Elmo Moreno NP Primary Care Provider Encounter Details Date Type Department Care Team (Late st Contact Info) Description 03/13/[address] [place] [address] Allison Euceda [place] Social History [...] on filedocumented in this encounter Care Teams Hand Alterations Tailor Relationship Specialty Start Date End Date Elmo Moreno NP [address] [facility] [place] PCP - General 05/15/22 documented as of this encounter
--- OUTSIDE RECORDS SUMMARY | 2024-04-11 16:22 | XMS_ITS | Encounter Summary ---
Author Organization [facility] Address [address] [place] [address] Care Team Providers Care Quill Cleaning Machine Operator Name Role Phone Elmo Moreno NP Primary Care Provider [phone] Reason for Visit * Reason Onset Date Comments Appointment 04/10/2024 04/07/24 - Per Ab by - called patient to schedule SI Joint injection but patient decided to put everything on hold for now due to a possible hernia surgery that he's going to have. Encounter Details Date Type Department Care Team (Late st Contact Info) Description 04/10/2024 Telephone Neurosurgery [address] [place] [address] Malena Bergman [place] Appointment (04/07/24 - Per Sue - called patient to schedule SI Joint injection but patient decided to put everything on hold for now due to a possible hernia surgery that he's going to have. ) Social History Tobacco Use Types Packs/Day Years Used Date Smoking Tobacco: Never Smokeless Tobacco: Never Sex and Gender Information Value Date Recorded Sex Assigned at Not on file Legal Sex Male 7:57 PM EST Gender Identity Not on file Sexual Orientation Not on file documented as of this encounter Plan of Treatment Not on file documented as of this encounter Visit Diagnoses Not on filedocumented in this encounter Care Teams Quill Cleaning Machine Operator Relationship Specialty Start Date End Date Elmo Moreno NP [address] [facility] [place] PCP - General 05/15/22 documented as of this encounter
--- OUTSIDE RECORDS SUMMARY | 2024-04-11 16:22 | XMS_ITS | Clinical Summary ---
Author Organization [facility] Facility Address [address] [place] [address] Care Team Providers Care Regional Property Manager Name Role Phone Unavailable Primary Care Provider [...]
--- OUTSIDE RECORDS SUMMARY | 2024-04-11 16:23 | XMS_ITS | Clinical Summary ---
Author Organization [address] [facility] Address [address] [place] [address] Phone Care Team Providers Care Statistical Clerk Advertising Name Role Phone Elmo Moreno NP Primary Care Provider Allergies No known active allergies Medications albuterol HFA (PROAIR HFA ; PROVENTIL HFA ; VENTOLIN HFA) 90 mcg/actuation inhaler INHALE 2 PUFFS BY MOUTH EVERY 6 HOURS NEEDED 022 Active syringe with needle, safety 1 mL 25 gauge x 5/8 syringe BD Disp [place] 25G X 5/8 Misc USE DIRECTED WEEKLY [...] while working 3-05/25, with rest and evening 8/10 or higher. [...] Encounters Date Type Department Care Team Description 04/10/2024 Telephone Neurosurgery [facility] [address] [place] [address] Malena Bergman [place] Appointment (04/07/24 - Per Sue - called patient to schedule SI Joint injection but patient decided to put everything on hold for now due to a possible hernia surgery that he's going to have. ) 03/30/2024 Telephone Neurosurgery [facility] [address] [place] [address] Mally John PA 03/27/2024 11:30 AM EST - 03/27/2024 11:59 PM EST Hospital Encounter Radiology Department - [address] [address] Low back pain radiating to right leg Discharge Disposition: Home or Self Care 03/20/2024 10:15 AM EST Office Visit Neurosurgery [address] [place] [address] Mally John PA Sacroiliitis (CMS/HCC) (Primary Dx); Low back pain radiating to right leg 03/13/[address] [address] Allison Euceda [place] from Last [...] Signed Date: 03/27/2024 15:51 ET Workstation ID: [id number] Transcribed By: Self Edit Transcribed Date: 03/27/2024 [...] Signed Date: 03/27/2024 15:51 ET Workstation ID: [id number] Transcribed By: Self Edit Transcribed Date: 03/27/2024 15:44 ET us Mally QUIÑONEZ IMG MRI PROCEDURES Final R esult from Last 3 Months Insurance [employer] Care Teams Statistical Clerk Advertising Relationship Specialty Start Date End Date Elmo Moreno NP [address] [facility] [place] PCP - General 05/15/22
== END 2024-04-11 14:19 | disposition home or self-care (01) ==
PROVIDERS: PCP Nurse Practitioner Family
DX: M75.102 Unspecified rotator cuff tear or rupture of left shoulder, not specified as traumatic (principal)
CPT/HCPCS: 99213

== ENCOUNTER → 2024-04-11 13:40 | Outpatient (BNV) | payer OTHER, SELFPAY | PROVIDERS: PCP Nurse Practitioner Family; Visit Provider Radiology Vascular & Interventional Radiology | DX: M25.512 Pain in left shoulder (principal); M25.511 Pain in right shoulder | CPT/HCPCS: 73030 ==

== ENCOUNTER 2024-04-13 08:48 | Outpatient (AMB) | payer OTHER, SELFPAY ==
--- OUTSIDE RECORDS SUMMARY | 2024-04-13 09:22 | XMS_ITS | Encounter Summary ---
Author Organization [facility] Address [address] [place] [address] Care Team Providers Care Quality Specialist Name Role Phone Elmo Moreno NP Primary Care Provider [phone] Reason for Visit * Reason Onset Date Comments Appointment 04/10/2024 04/07/24 - Per Ab by - called patient to schedule SI Joint injection but patient decided to put everything on hold for now due to a possible hernia surgery that he's going to have. Encounter Details Date Type Department Care Team (Late st Contact Info) Description 04/10/2024 Telephone Neurosurgery [address] [place] [address] Malena Bergman [place] Appointment (04/07/24 [...] on filedocumented in this encounter Care Teams Quality Specialist Relationship Specialty Start Date End Date Elmo Moreno NP [address] [facility] [place] PCP - General 05/15/22 documented as of this encounter
--- OUTSIDE RECORDS SUMMARY | 2024-04-13 09:22 | XMS_ITS | Clinical Summary ---
Author Organization [facility] Facility Address [address] [place] [address] Care Team Providers Care Dentofacial Orthopedics Dentist Name Role Phone Unavailable Primary Care Provider [...]
--- OUTSIDE RECORDS SUMMARY | 2024-04-13 09:22 | XMS_ITS | Encounter Summary ---
Author Organization [facility] Address [address] [place] [address] Care Team Providers Care Embedded Systems Engineer Name Role Phone Sterling Moreno NP Primary Care Provider + [phone] Reason for Referral * Imaging (Routine) - Closed Specialty Diagnoses / Procedures Referred By Contac t Referred To Contact Radiology Diagnoses Low back pain radiating to right leg Procedures MR Lumbar Spine wo Contrast Mally John PA [address] [place] [address] Phone: tel: fax: Radiology Department [address] Phone: tel: fax: Referral ID Status Reason Start Date Expiration Date Visits Re quested Visits Authorized [id number] Closed 03/20/2024 03/20/2025 1 1 * Imaging (Routine) - Authorized Specialty Diagnoses / Procedures Referred By Contac t Referred To Contact Radiology Diagnoses Sacroiliitis (CMS/HCC) Procedures IR Inj Anes/Steroid Nerve Sacroiliac Joint Right Mally John PA [address] [facility], [address] [place] [address] Phone: tel: fax: [facility] Interventional Radiology [address] [place] [address] Phone: tel: Referral ID Status Reason Start Date Expiration Date V isits Requested Visits Authorized [id number] Authorized 03/20/2024 03/20/2025 1 1 Reason for Visit * Reason Comments Sacral Iliac Joint Pain Eval for possibl e repeat injection Encounter Details Date Type Department Care Team (Late st Contact Info) Description 03/20/2024 10:15 AM EST Office Visit Neurosurgery [facility] [address] [place] [address] Mally John PA [address] [facility], [address] [place] [address] Sacroiliitis (CMS/HCC) (Primary Dx); Low back pain [...] object. He knows in the past Dr. cMkoy talked to him about possible SI joint [...] 25 gauge x 5/8 syringe BD Disp [place] 25G X 5/8 Misc
USE DIRECTED WEEKLY [...] PM EST [facility] Neurosurgical [place] documented in this encounter Plan of Treatment [...] Signed Date: 03/27/2024 15:51 ET Workstation ID: [id number] Transcribed By: Self Edit Transcribed Date: 03/27/2024 [...] Signed Date: 03/27/2024 15:51 ET Workstation ID: [id number] Transcribed By: Self Edit Transcribed Date: 03/27/2024 [...] 03/20/2024 added in this encounter Care Teams Embedded Systems Engineer Relationship Specialty Start Date End Date Sterling Moreno NP [address] [place], [place] PCP - General 05/15/22 documented as of this encounter
--- OUTSIDE RECORDS SUMMARY | 2024-04-13 09:23 | XMS_ITS | Clinical Summary ---
Author Organization [facility] Address [address] [place] [address] Care Team Providers Care Sheep Sticker Name Role Phone Elmo Moreno Primary Care Provider [phone] Allergies No known active allergies Medications Medication [...] Advance Directives For more information, please contact: [phone] Latest Code Status on File Code Status Date Activated Date Inactivated Comments Full Code 03/18/2020 12:11 PM 03/18/2020 9:28 PM This c ode status was ascertained in the following way: discussion with patient . Care Teams Sheep Sticker Relationship Specialty Start Date End Date Elmo Moreno: [id number] [address] [facility] [place] [address] PCP - General Family Medicine 03/07/20
--- OUTSIDE RECORDS SUMMARY | 2024-04-13 09:23 | XMS_ITS | Encounter Summary ---
Author Organization [facility] Address [address] [place] [address] Care Team Providers Care Gas Specialist Name Role Phone Elmo Moreno NP Primary Care Provider + [phone] Reason for Referral * Imaging (Routine) - Closed Specialty Diagnoses / Procedures Referred By Contac t Referred To Contact Radiology Diagnoses Low back pain radiating to right leg Procedures MR Lumbar Spine wo Contrast Mally John PA [address] [place] [address] Phone: tel: fax: Radiology Department [address] Phone: tel: fax: Referral ID Status Reason Start Date Expiration Date Visits Re quested Visits Authorized [id number] Closed 03/20/2024 03/20/2025 1 1 Reason for Visit * Imaging (Routine) - Closed Specialty Diagnoses / Procedures Referred By Contac t Referred To Contact Radiology Diagnoses Low back pain radiating to right leg Procedures MR Lumbar Spine wo Contrast Mally John PA [address] [place] [address], [address] Phone: tel: fax: Radiology Department - [address] Phone: tel: fax: Referral ID Status Reason Start Date Expiration Date Visits Re quested Visits Authorized [id number] Closed 03/20/2024 03/20/2025 1 1 Encounter Details Date Type Department Care Team (Latest Contact Info) Description 03/27/2024 11:30 AM EST - 03/27/2024 11:59 PM EST Hospital Encounter Radiology Department - [address] [address] Low back pain radiating to right leg [...] 25 gauge x 5/8 syringe BD Disp [place] 25G X 5/8 Misc USE DIRECTED WEEKLY [...] Signed Date: 03/27/2024 15:51 ET Workstation ID: [id number] Transcribed By: Self Edit Transcribed Date: 03/27/2024 [...] Signed Date: 03/27/2024 15:51 ET Workstation ID: [id number] Transcribed By: Self Edit Transcribed Date: 03/27/2024 15:44 ET us Mally QUIÑONEZ IMG MRI PROCEDURES Final R esult documented in this encounter Visit Diagnoses Diagnosis Low back pain radiating to right leg Lumbago documented in this encounter Care Teams Gas Specialist Relationship Specialty Start Date End Date Elmo Moreno NP [address] [place], [place] PCP - General 05/15/22 documented as of this encounter
--- OUTSIDE RECORDS SUMMARY | 2024-04-13 09:23 | XMS_ITS | Clinical Summary ---
Author Organization [address] [facility] Address [address] [place] [address] Phone Care Team Providers Care Market Research Interviewer Name Role Phone Elmo Moreno NP Primary Care Provider [phone] Allergies No known active allergies Medications albuterol HFA (PROAIR HFA ; PROVENTIL HFA ; VENTOLIN HFA) 90 mcg/actuation inhaler INHALE 2 PUFFS BY MOUTH EVERY 6 HOURS NEEDED 022 Active syringe with needle, safety 1 mL 25 gauge x 5/8 syringe BD Disp Tornado 25G X 5/8 Misc USE DIRECTED WEEKLY [...] Department Care Team Description 04/10/2024 Telephone Neurosurgery [place] [facility] [place] [address] [facility] [address] [place] [address] Malena Bergman MA Appointment (04/07/24 - Per Sue - called patient to schedule SI Joint injection but patient decided to put everything on hold for now due to a possible hernia surgery that he's going to have. ) 03/30/2024 Telephone Neurosurgery [facility] 175 [facility] [address] [place] [phone] Mally John PA 03/27/2024 11:30 AM EST - 03/27/2024 11:59 PM EST Hospital Encounter Radiology Department - [address] [phone] Low back pain radiating to right leg Discharge Disposition: Home or Self Care 03/20/2024 10:15 AM EST Office Visit Neurosurgery [address] [place] [phone] Mally John PA Sacroiliitis (CMS/HCC) (Primary Dx); Low back pain radiating to right leg 03/13/[address] [phone] Allison Euceda MA from Last [...] Signed Date: 03/27/2024 15:51 ET Workstation ID: [id number] Transcribed By: Self Edit Transcribed Date: 03/27/2024 [...] Signed Date: 03/27/2024 15:51 ET Workstation ID: [id number] Transcribed By: Self Edit Transcribed Date: 03/27/2024 15:44 ET us Mally QUIÑONEZ IMG MRI PROCEDURES Final R esult from Last 3 Months Insurance [employer] Care Teams Market Research Interviewer Relationship Specialty Start Date End Date Elmo Moreno NP [address] [facility] [place] PCP - General 05/15/22
--- OUTSIDE RECORDS SUMMARY | 2024-04-13 09:23 | XMS_ITS | Encounter Summary ---
Author Organization [facility] Address [address] [place] [address] Care Team Providers Care Turret Punch Operator Name Role Phone Elmo Moreno NP Primary Care Provider Encounter Details Date Type Department Care Team ([facility] Contact Info) Description 03/30/2024 Telephone [facility]surgery [facility] 175 [facility] [address] [place] [phone] Mally John PA [address] [facility], [address] [place] [address] Social History Tobacco Use Types Packs/Day Years [...] on filedocumented in this encounter Care Teams Turret Punch Operator Relationship Specialty Start Date End Date Elmo Moreno NP [address] [facility] [place], [place] PCP - General 05/15/22 documented as of this encounter
[2024-04-13 09:33] VITALS: BP 142/98; PULSE 89; O2SAT 98; BMI 35.6
--- NOTE | 2024-04-13 09:33 | MHC.PC.OV ---
Vital Signs 04/13/24 09:33 04/13/24 10:20 Height 5 ft 10 in Weight 248 lb BMI 35.6 BP 142/98 H 142/90 H Blood Pressure Location Lt brachial Lt brachial Position Sitting Sitting Pulse 89 Pulse Source Pulse Oximeter Pulse Oximetry (%) 98 Intake Visit Reasons: PE Intake Note: pt is here for PE Cellular Phone Repairer Required: No Accompanied by: Self / Same As Patient Allergies No Known Allergies [No Known Allergies*] Allergy (Verified 04/13/24 09:33) Medication List - Last Reconciled 04/13/24 by Elmo Moreno, [facility]- albuterol sulfate 90 mcg/actuation (Ventolin HFA) 2 puffs inhalation Q4-6H PRN hydrochlorothiazide mg PO DAILY lorazepam 0.5 mg PO DAILY PRN 30 days losartan mg PO DAILY needle (disp) 22 G As directed needle (disp) 25 gauge (BD Regular Bevel [place]) As directed weekly - for testosterone subcutaneous injection omeprazole 20 mg PO DAILY syringe (disposable) (BD Luer-Christiano Syringe) Testosterone injection weekly tadalafil 20 mg PO ONCE PRN 30 days testosterone cypionate (Depo-Testosterone) 100 mg (0.5 mL) subcut QWEEK 4 weeks Tobacco use date assessed: 04/13/24 Dental Screening Dental Screen Date: 04/13/24 Did you have a dental visit in the last 12 months?: Yes Did you have a dental problem in the last 6 months where you did not have access to dental care?: No Was dental information given to patient?: Patient has dentist HPI PE HPI Details History of Present Illness The patient is a 43-year-old male presenting with a request for a physical examination. Known for his history of essential hypertension, the patient states he has been off his prescribed antihypertensive medication for some days due to a delay in receiving a new stock from his mail-in order pharmacy. To address the issue, he intends to resend his prescription to a local pharmacy. He reports no symptoms such as chest pain, difficulty breathing, abdominal pain, melena, or hematuria. colorectal cancer screening is UTD. Health Maintenance - Colorectal cancer screening is current Social History Review of Systems - Cardiovascular: Denies chest pain - Respiratory: Denies shortness of breath - Gastrointestinal: Denies abdominal pain, denies blood in the stool - Genitourinary: Denies urinary issues Physical Exam General: Cooperative, healthy appearing, comfortable, no acute distress and well developed Orientation: Patient oriented x3 Limitations: No limitations Head: Normal to inspection Ears: Hearing grossly normal bilaterally Nose: Normal external nose present Face and sinus: Normal facial exam Eyes: Appearance normal, both eyes and all related structures Neck: Normal visual inspection and Yes full ROM Respiratory: Normal respiratory effort and able to speak in complete sentences. Clear to auscultation bilaterally Cardiovascular: Regular rate and rhythm. Normal S1 and S2 GI: Normal to inspection. Soft to palpation and nontender Skin: No rashes or lesions noted Neuro: Patient oriented x3 Extremities: Normal to inspection Results - Labs: Blood work including PSA to be obtained Plan The patient will manage his essential hypertension by reinstating his medication regimen, which he has missed for several days. He plans to resend his prescription to his local pharmacy to resume his antihypertensive treatment. Routine blood work is planned to include a PSA test as a preventative measure. The patient did not report any new symptoms or acute issues. Adherence to treatment and regular monitoring will be emphasized in ongoing care. Discussion Notes During our discussion, we reviewed the importance of medication adherence for controlling essential hypertension. We addressed the delay in receiving his prescription and the plan for the patient to resend it to his local pharmacy to ensure continuity of care. The decision to include a PSA test in his blood work was made as a part of routine screening for his age group. Potential risks and benefits of hypertension management were implicitly considered, with the understanding of the need for regular follow-up to monitor his condition effectively and prevent complications. Patient Instructions - Resume antihypertensive medication as soon as prescription is filled - Undergo blood work, including PSA test, as recommended - Maintain regular follow-up appointments to monitor blood pressure and overall health - Contact the office if new symptoms arise or if there are further medication access issues [facility] Medical History Tubular adenoma of colon GERD (gastroesophageal reflux disease) Anxiety with depression PTSD (post-traumatic stress disorder) Lumbar stenosis HTN (hypertension) Sleep apnea Hypogonadism in male BPH (benign prostatic hyperplasia) Renal calculi CKD (chronic kidney disease) Right foot pain Surgical History Status post right rotator cuff repair Status post right foot surgery Family History Father No problems noted. Mother No problems noted. 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 1. Little interest or pleasure in doing things: not at all 2. Feeling down, depressed, or hopeless: not at all 3. Trouble falling or staying asleep, or sleeping too much: not at all 4. Feeling tired or having little energy: not at all 5. Poor appetite or overeating: not at all 6. Feeling bad about yourself - or that you are a failure or have let yourself or your family down: not at all 7. Trouble concentrating on things, such as reading the newspaper or watching television: not at all 8. Moving or speaking so slowly that other people could have noticed. Or the opposite - being so fidgety or restless that you have been moving around a lot more than usual: not at all 9. Thoughts that you would be better off or of hurting yourself in some way: not at all Total score: 0 Depression Screening Interpretation: Negative Depression Screening Done: Yes 99872 - PHQ-9 Billing: Yes Source: Developed by Drs. Chuckie Poon, Shayy Fleming, Jared Simms and colleagues, with an educational bharath from [employer]. Thrive Questionnaire Date Thrive assessed: 04/13/24 I am a: Patient What is your living situation today?: I have a steady place to live Within the past 12 months, did the food you bought not last and you didn't have the money to get more?: Never true Within the past 12 months, did you worry whether your food would run out before you got money to buy more?: Never true Do you have trouble paying for medicines?: No Do you have trouble getting transportation to medical appointments?: No Do you have trouble paying your heating and electricity bill?: No Do you have trouble taking care of your child, family member or friend?: No Do you have trouble with day-to-day activities such as bathing, preparing meals, shopping, managing finances, etc.?: No Are you currently unemployed and looking for a job?: No Are you interested in more education?: No Please select the resources that you would like help with: None Currently or been in a relationship where the following occur: No concerns reported THRIVE Score: 0 AUDIT C Alcohol Use Questionnaire (AUDIT-C) 1. How often do you have a drink containing alcohol?: Monthly or less 2. How many drinks containing alcohol do you have on a typical day when you are drinking?: 3 or 4 3. How often do you have six or more drinks on one occasion?: Less than monthly Total Score: 3 Score Reviewed/Action Taken: Yes RETA-7 AMB Questionnaire RETA-7 Date RETA - 7 assessed: 04/13/24 Feeling nervous, anxious, or on edge: 0 = Not at all Not being able to stop or control worryin = Not at all Worrying too much about different things: 0 = Not at all Trouble relaxin = Not at all Being so restless that it is hard to sit still: 0 = Not at all Becoming easily annoyed or irritable: 0 = Not at all Feeling afraid as if something awful might happen: 0 = Not at all Total RETA-7 score (0-4 normal; 5-9 mild; 10-14 moderate; 15-21 severe): 0 Source: Developed by Drs. Chuckie Poon, Shayy Fleming, Jared Simms and colleagues, with an educational bharath from [employer]. RETA-7 Assessment Billing RETA-7 Assessment Tool: RETA-7 Assessment 22250 Physical exam (Primary Care) Vital Signs: Last Vital Signs Pulse 89 04/13/24 09:33 BP 142/98 H 04/13/24 09:33 Pulse Ox 98 04/13/24 09:33 BMI result Body Mass Index 35.6 Tobacco/Smoking Status: Tobacco use Status Tobacco use date assessed 04/13/24 04/13/24 09:35 Patient Tobacco Use Status Former Tobacco user 04/13/24 09:35 e-Cigarette/Vaping Use Never Used 04/13/24 09:35 PHQ-9: PHQ-9 Score PHQ-9: Total score 0 04/13/24 10:14 Depression Screening Interpretation: Negative Thrive Assessment: Date of Thrive Assessment Date Thrive assessed 04/13/24 04/13/24 09:35 Currently or been in a relationship where the following occur: No concerns reported Coding Level of Care Code Est Pt Prev Care 40-64y(85187) Diagnoses Screening PSA (prostate specific antigen) Z12.5 Physical exam Z00.00 Additional Codes RETA-7 Assessment Billing - RETA-7 Assessment Tool: RETA-7 Assessment 60808 ([id number]) PHQ-9 - 80898 - PHQ-9 Billing: Yes ([id number]) Assessment & Plan Assessment & Plan (1) Screening PSA (prostate specific antigen): Code(s): Z12.5 - Encounter for screening for malignant neoplasm of prostate Category: Medical (2) Physical exam: Code(s): Z00.00 - Encounter for general adult medical examination without abnormal findings Category: Medical Plan . Orders: Orders Prostate Specific Antigen Scr Today Z12.5 - Encounter for screening for malignant neoplasm of prostate Medications: New hydrochlorothiazide 25 mg PO DAILY 30 tabs 0RF losartan 100 mg PO DAILY 30 tabs 0RF
[2024-04-13 10:20] VITALS: BP 142/90
== END 2024-04-13 12:58 | disposition home or self-care (01) ==
PROVIDERS: PCP Nurse Practitioner Family; Visit Provider Nurse Practitioner Family
DX: Z12.5 Encounter for screening for malignant neoplasm of prostate (principal); Z00.00 Encounter for general adult medical examination without abnormal findings

== ENCOUNTER → 2024-04-13 08:48 | Outpatient (BNVA) | payer OTHER, SELFPAY | PROVIDERS: PCP Nurse Practitioner Family; Visit Provider Nurse Practitioner Family | DX: Z00.00 Encounter for general adult medical examination without abnormal findings (principal) | CPT/HCPCS: 96127 ==

== ENCOUNTER 2024-04-14 07:00 | Day surgery (SDC) | payer OTHER, SELFPAY ==
--- OUTSIDE RECORDS SUMMARY | 2024-04-05 11:41 | XMS_ITS | Encounter Summary ---
Author Organization [facility] Address [address] [place] [address] Care Team Providers Care Medical Office Assistant Instructor Name Role Phone Elmo Moreno NP Primary Care Provider + [phone] Reason for Referral * Imaging (Routine) - Closed Specialty Diagnoses / Procedures Referred By Contac t Referred To Contact Radiology Diagnoses Low back pain radiating to right leg Procedures MR Lumbar Spine wo Contrast Mally John PA [address] [place] [address] Phone: tel: fax: Radiology Department [address] Phone: tel: fax: Referral ID Status Reason Start Date Expiration Date Visits Re quested Visits Authorized [id number] Closed 03/20/2024 03/20/2025 1 1 Reason for Visit * Imaging (Routine) - Closed Specialty Diagnoses / Procedures Referred By Contac t Referred To Contact Radiology Diagnoses Low back pain radiating to right leg Procedures MR Lumbar Spine wo Contrast Mally John PA [address] [place] [address], [address] Phone: tel: fax: Radiology Department - [address] Phone: tel: fax: Referral ID Status Reason Start Date Expiration Date Visits Re quested Visits Authorized [id number] Closed 03/20/2024 03/20/2025 1 1 Encounter Details Date Type Department Care Team (Latest Contact Info) Description 03/27/2024 11:30 AM EST - 03/27/2024 11:59 PM EST Hospital Encounter Radiology Department - [address] [address] Low back pain radiating to right leg [...] 25 gauge x 5/8 syringe BD Disp [place] 25G X 5/8 Misc USE DIRECTED WEEKLY [...] Signed Date: 03/27/2024 15:51 ET Workstation ID: [id number] Transcribed By: Self Edit Transcribed Date: 03/27/2024 15:44 ET Procedure Note Milagro Cervantes MD - 03/27/2024 MRI of the lumbar spine without intravenous contrast. History right low back posterior neck pain. Examination was performed on 1.5 Haliee magnet without administration ofintravenous contrast. Comparison with [...] -------- FINAL REPORT -------- Dictated By: Milagro Cervanets Dictated Date: 03/27/2024 15:44 ET Assigned Physician: Milagro Cervantes Reviewed and Electronically Signed By: Milagro Cervantes Signed Date: 03/27/2024 15:51 ET Workstation ID: [id number] Transcribed By: Self Edit Transcribed Date: 03/27/2024 15:44 ET us Mally QUIÑONEZ IMG MRI PROCEDURES Final R esult documented in this encounter Visit Diagnoses Diagnosis Low back pain radiating to right leg Lumbago documented in this encounter Care Teams Medical Office Assistant Instructor Relationship Specialty Start Date End Date Elmo Moreno NP [address] [place], [place] PCP - General 05/15/22 documented as of this encounter
--- OUTSIDE RECORDS SUMMARY | 2024-04-05 11:42 | XMS_ITS | Clinical Summary ---
Author Organization [facility] Address [address] [place] [address] Phone Care Team Providers Care Transit Driver Name Role Phone Elmo Moreno NP Primary [...] Department Care Team Description 03/30/2024 Telephone Neurosurgery [place] - [address] [place] [address] Mally John PA 03/27/2024 11:30 AM EST - 03/27/2024 11:59 PM [facility] Hospital Encounter Radiology Department - [address] [place] [address] Low back pain radiating to right leg Discharge Disposition: Home or Self Care 03/20/2024 10:15 AM EST Office Visit Neurosurgery [facility] [address] [address] Mally John PA Sacroiliitis (CMS/HCC) (Primary Dx); Low back pain radiating to right leg 03/13/2024 Telephone [facility] [address] [address] Allison Euceda [place] from Last [...] Signed Date: 03/27/2024 15:51 ET Workstation ID: [id number] Transcribed By: Self Edit Transcribed Date: 03/27/2024 [...] Signed Date: 03/27/2024 15:51 ET Workstation ID: [id number] Transcribed By: Self Edit Transcribed Date: 03/27/2024 15:44 ET Mally QUIÑONEZ IMG MRI PROCEDURES Final R esult from Last 3 Months Insurance [employer] Care Teams Transit Driver Relationship Specialty Start Date End Date Elmo Moreno NP [address] [facility] [place] PCP - General 05/15/22
--- OUTSIDE RECORDS SUMMARY | 2024-04-05 11:42 | XMS_ITS | Encounter Summary ---
Author Organization [facility] Address [address] [place] [address] Care Team Providers Care Apparel Patternmaker Name Role Phone Elmo Moreno NP Primary Care Provider Encounter Details Date Type Department Care Team (Late st Contact Info) Description 03/13/[address] [place] [address] Allison Euceda [place] Social History [...] on filedocumented in this encounter Care Teams Apparel Patternmaker Relationship Specialty Start Date End Date Elmo Moreno NP [address] [facility] [place] PCP - General 05/15/22 documented as of this encounter
--- OUTSIDE RECORDS SUMMARY | 2024-04-05 11:42 | XMS_ITS | Clinical Summary ---
Author Organization [facility] Address [address] [place] [address] Care Team Providers Care Marble Installer Supervisor Name Role Phone Elmo Moreno Primary Care Provider [phone] Allergies No known active allergies Medications Medication [...] Advance Directives For more information, please contact: [phone] Latest Code Status on File Code Status Date Activated Date Inactivated Comments Full Code 03/18/2020 12:11 PM 03/18/2020 9:28 PM This c ode status was ascertained in the following way: discussion with patient . Care Teams Marble Installer Supervisor Relationship Specialty Start Date End Date Elmo Moreno: [phone] [address] [facility] [place] [address] PCP - General Family Medicine 03/07/20
--- OUTSIDE RECORDS SUMMARY | 2024-04-05 11:42 | XMS_ITS | Encounter Summary ---
Author Organization [facility] Address [address] [place] [address] Care Team Providers Care Eyeglass Assembler Name Role Phone Sterling Moreno NP Primary Care Provider + [phone] Reason for Referral * Imaging (Routine) - Closed Specialty Diagnoses / Procedures Referred By Contac t Referred To Contact Radiology Diagnoses Low back pain radiating to right leg Procedures MR Lumbar Spine wo Contrast Mally John PA [address] [place] [address] Phone: tel: fax: Radiology Department [address] Phone: tel: fax: Referral ID Status Reason Start Date Expiration Date Visits Re quested Visits Authorized [id number] Closed 03/20/2024 03/20/2025 1 1 * Imaging (Routine) - Authorized Specialty Diagnoses / Procedures Referred By Contac t Referred To Contact Radiology Diagnoses Sacroiliitis (CMS/HCC) Procedures IR Inj Anes/Steroid Nerve Sacroiliac Joint Right Mally John PA [address] [facility], [address] [place] [address] Phone: tel: fax: [facility] Interventional Radiology [address] [place] [address] Phone: tel: Referral ID Status Reason Start Date Expiration Date V isits Requested Visits Authorized [id number] Authorized 03/20/2024 03/20/2025 1 1 Reason for Visit * Reason Comments Sacral Iliac Joint Pain Eval for possibl e repeat injection Encounter Details Date Type Department Care Team (Late st Contact Info) Description 03/20/2024 10:15 AM EST Office Visit Neurosurgery [place] [facility] [address] [facility] [address] [place] [address] Mally John PA [address] [facility], [address] [place] [address] Sacroiliitis (CMS/HCC) (Primary Dx); Low back pain [...] 25 gauge x 5/8 syringe BD Disp Mark 25G X 5/8 Misc
USE DIRECTED WEEKLY [...] PM EST [facility] Neurosurgical [place] documented in this encounter Plan of Treatment [...] Signed Date: 03/27/2024 15:51 ET Workstation ID: [id number] Transcribed By: Self Edit Transcribed Date: 03/27/2024 [...] Signed Date: 03/27/2024 15:51 ET Workstation ID: [id number] Transcribed By: Self Edit Transcribed Date: 03/27/2024 [...] 03/20/2024 added in this encounter Care Teams Eyeglass Assembler Relationship Specialty Start Date End Date Sterling Moreno NP [address] [place], [place] PCP - General 05/15/22 documented as of this encounter
--- OUTSIDE RECORDS SUMMARY | 2024-04-05 11:42 | XMS_ITS | Continuity of Care Document ---
Author Name [facility] Organization [facility] Care Team Providers Care Motion Picture Set Worker Name Role Phone [facility] Unavailable Unavailable Problems Combined list of problems from 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 It does not include entries that were removed or entered in error. Problem Status Onset Date Problem Type Date of Resolution Comments Source Other hammer toe(s) (acquired), right foot Active 1898 Condition DoD Anxiety (SCT [id number]) Active Condition [facility] Chronic back pain Active [facility] Chronic kidney disease stage 3A Active Condition Mar 03 Entered By: EDITH ALEJANDRO Comment: Stage 3a chronic kidney disease 03/02/2021 [facility] Contact dermatitis Active Condition [facility] Degenerative Joint Disease of Shoulder Region (SCT [id number]) Active Condition [facility] Dermatophytosis Active Condition Mar 03, 2024 Entered By: EDITH ALEJANDRO Comment: Dermatophytosis tinea cruris [facility] Erectile Dysfunction (SCT [id number]) Active Condition [facility] GERD - Gastro-Esophageal Reflux Disease (SCT [id number]) Active Condition [facility] Gout Active Condition [facility] Hammer toe Active Condition Mar 03 Entered By: EDITH ALEJANDRO Comment: hammer toe(s) (acquired), right foot [facility] History of nicotine dependence Active Condition [facility] HTN - Hypertension (SCT [id number]) Active Condition [facility] Pain in Lumbar Spine (SCT [id number]) Active Condition [facility] [...] ICD-10-CM Z71.89 Other specified counseling Active Diagnosis [facility] Diagnosis: ICD-10-CM I10 Essential (primary) hypertension [...] ORAL, IVAX PHARMACEUT, 100 ea. BOTTLE Active [id number] 2023 90 Pharmac y Data Transac tion Service Facilit y hydroCHLORO thiazide 12.5 mg oral tablet hydroCHL OROthiaz magda 12.5 mg oral tablet Start Date: 10/08/20 Status: Ordered Ordered No Facilit y Access HYDROCHLORO THIAZIDE 25MG/LOSART AN POTASSIUM 100MG TAB TAKE ONE TABLET BY MOUTH ORAL ACTIVE GERARD RODRIGUEZ 2024 [facility] ibuprofen 600 mg oral tablet ibuprofe n 600 mg oral tablet Start Date: 10/29/20 Status: Ordered Ordered No Facilit y Access lidocaine 5% topical film lidocain e 5% topical film Start Date: 05/27/20 Status: Ordered Ordered No Facilit y Access LORAZEPAM (lorazepam) , 0.5 MG, TABLET, ORAL, AUROBINDO PHARM, 500 ea. BOTTLE Active [id number] 2023 30 Pharmac y Data Transac tion Service Facilit y LORAZEPAM (lorazepam) , 0.5 MG, TABLET, ORAL, AUROBINDO PHARM, 500 ea. BOTTLE Active [id number] 2023 30 Pharmac y Data Transac tion Service Facilit y LORAZEPAM (lorazepam) , 0.5 MG, TABLET, ORAL, TEVA [place], 500 ea. BOTTLE Active [id number] 2023 30 Pharmac y Data Transac tion Service Facilit y LORAZEPAM 0.5MG TAB TAKE ONE TABLET BY MOUTH ORAL ACTIVE MICHAEL GERARD Farhan 2024 [facility] losartan-hy droCHLOROth iazide 100mg-12.5m g oral tablet [...] NAVEED DICKINSO, [address] d [id number] : 2023 0 Pharmac y Data Transac tion Service Facilit y meloxicam 15 mg oral tablet meloxica m 15 mg oral tablet Start Date: 04/17/21 Status: Ordered Ordered No Facilit y Access NAPROXEN (NAPROXEN), 500MG, TABLET, ORAL, GLENMARK PHARMA, 500 ea. BOTTLE Active [id number] 2023 60 Pharmac y Data Transac tion Service Facilit y NAPROXEN (NAPROXEN), 500MG, TABLET, ORAL, GLENMARK PHARMA, 500 ea. BOTTLE Active [id number] 2023 60 Pharmac y Data Transac tion Service Facilit y NAPROXEN 500MG TAB TAKE ONE TABLET BY MOUTH ORAL ACTIVE GERARD RODRIGUEZ 2024 [facility] OMEPRAZOLE (omeprazole ), 20 MG, CAPSULE DR, ORAL, TaDaweb, 1000 ea. BOTTLE Active [id number] 2023 90 Pharmac y Data Transac tion Service Facilit y omeprazole 20 mg oral delayed release capsule omeprazo le 20 mg oral delayed release capsule Start Date: 04/16/21 Status: Ordered Ordered No Facilit y Access OMEPRAZOLE 20MG CAP,EC TAKE 1 CAPSULE BY MOUTH EVERY MORNING 30 MINUTES BEFORE BREAKFAS T ORAL ACTIVE GERARD RODRIGUEZ 2024 [facility] oxyCODONE 5 mg oral tablet [...] BD MEDICAL SURG, 100 ea. RODRIGUEZ cárdenas [id number] : 2023 0 Pharmac y Data Transac [...] (200MG) INTRAMUS CULARLY INTRAM GERARD TAFOYA 2024 [facility] tiZANidine 2 mg [...] Site Reaction Lot Number CVX Code Drug Director Corporate Status Comments Source ANTHRAX VACCINE, UNSPECIFIED 6 2023 319 complet ed Lot#: [id number] [facility] Influenza, injectable, quadrivalent, preservative free 22 2021 [id number] [facility] complet ed Influenza , injectabl e, quadrival ent, preservat gauri free DoD tetanus, diphtheria, acellular pertu is 2021 [id number] sanofi pasteur complet ed tetanus, diphtheri a, acellular pertussis 04/24/21 Given Ambulat ory Pharmac y TDAP 2 2021 115 complet ed tetanus toxoid, reduced diphtheri a toxoid, and acellular pertussis vaccine, adsorbed Lot#: [id number] Mfr: SANOFI PASTEUR [facility] tetanus toxoid, reduced diphtheria toxoid, and acellular pertu is vaccine, adsorbed 2 2021 [id number] Sanofi Pasteur (PMC) complet ed tetanus toxoid, reduced diphtheri a toxoid, and acellular pertussis vaccine, adsorbed DoD influenza virus vaccine, inactivated 2020 [id number] Seqirus complet ed influenza virus vaccine, inactivat ed 01/18/21 Given Ambulat ory Pharmac y Influenza, injectable, Madin Orly Canine Kidney, quadrivalent with preservative 9 2020 [id number] Seqirus (SEQ) comple t ed Influenza , injectabl e, Madin Springer Canine Kidney, quadrival ent with preservat gauri DoD COVID Vaccine Moderna 2020 [id number] complet ed COVID Vaccine Moderna 05/25/20 Given Ambulat ory Pharmac y COVID-19 (MODERNA), MRNA, LNP-S, PF, 100 MCG/0.5ML DOSE OR 50 MCG/0.25ML DOSE 2 2020 207 complet ed SARS-COV- 2 (COVID-19 ) vaccine, mRNA, spike protein, LNP, preservat gauri free, 100 mcg or 50 mcg dose Lot#: [id number] Mfr: Smart Energy InstrumentsA Planet OS, YepLike!. [facility] SARS-COV-2 (COVID-19) vaccine, mRNA, spike protein, LNP, preservative free, 100 mcg or 50 mcg dose 2 2020 [id number] Moderna Planet OS, Inc. (MOD) complet ed SARS-COV- 2 (COVID-19 [...] 100 mcg or 50 mcg dose Lot#: [id number] Mfr: Smart Energy InstrumentsA Planet OS, [employer]ep[employer]!. [facility] SARS-COV-2 (COVID-19) vaccine, mRNA, spike protein, LNP, preservative free, 100 mcg or 50 mcg dose 1 2020 [id number] Moderna Planet OS, Inc. (MOD) complet ed SARS-COV- 2 (COVID-19 ) vaccine, mRNA, spike protein, LNP, preservat gauri free, 100 mcg or 50 mcg dose DoD influenza, injectable, quadrivalent- pf 2019 [id number] 150 Seqirus complet ed influenza , injectabl e, quadrival ent-pf 12/31/19 Given Ambulat ory Pharmac y Influenza, injectable, quadrivalent, preservative free 1 2019 [id number] 077 150 Seqirus (SEQ) complet ed Influenza , injectabl e, quadrival ent, preservat gauri free DoD influenza, injectable, quadrivalent- pf 2018 [id number] 520 150 Seqirus complet ed influenza , injectabl e, quadrival ent-pf 11/20/18 Given Ambulat ory Pharmac y Influenza, injectable, quadrivalent, preservative free 17 2018 [id number] 520 150 Seqirus (SEQ) complet ed Influenza [...] typhoid Vi capsular polysaccharid e vac 2017 [id number] sanofi pasteur complet ed typhoid Vi capsular polysacch aride vac 06/20/17 Given Ambulat ory Pharmac y TYPHOID, VICPS 2017 101 complet ed typhoid Vi capsular polysacch aride vaccine Lot#: [id number] Mfr: SANOFI PASTEUR [facility] typhoid Vi capsular polysaccharid e vaccine 5 2017 [id number] Sanofi Pasteur (PMC) complet ed typhoid [...] virus vaccine DoD influenza, seasonal, injectable 2016 [id number] complet ed influenza , seasonal, injectabl e 12/13/16 Given Ambulat ory Pharmac y Influenza, seasonal, injectable, preservative free 2016 BOGDASARIAN, () Not Given Influenza , seasonal, injectabl e, preservat gauri free DoD Influenza, seasonal, injectable 1 2016 [id number] 141 Transcribed (TRS) complet ed Influenza , [...] gauri DoD influenza, live, intranasal,qu adrivalent 2014 [id number] 149 Medimmune Inc comple t ed influenza , live, intranasa l,quadriv alent 11/20/14 Given Ambulat ory Pharmac y influenza, live, intranasal, quadrivalent 13 2014 [id number] 149 MedImmune, Inc. (MED) complet ed influenza , live, intranasa l, quadrival ent DoD influenza, live, intranasal,qu adrivalent 2013 [id number] 149 Medimmune Inc comple t ed influenza , live, intranasa l,quadriv alent 12/14/13 Given Ambulat ory Pharmac y influenza, live, intranasal, quadrivalent 12 2013 [id number] 149 MedImmune, Inc. (MED) complet ed influenza , live, intranasa l, quadrival ent DoD influenza, live, intranasal,qu adrivalent 2012 [id number] 149 Medimmune Inc comple t ed influenza , live, intranasa l,quadriv alent 10/13/12 Given Ambulat ory Pharmac y influenza, live, intranasal, quadrivalent 0 2012 [id number] 149 MedImmune, Inc. (MED) complet ed influenza , live, intranasa l, quadrival ent DoD typhoid Vi capsular polysaccharid e vac 2012 [id number] 101 sanofi pasteur complet ed typhoid Vi capsular polysacch aride vac 08/16/12 Given Ambulat ory Pharmac y anthrax vaccine 2012 [id number] Emergent Biosolutions complet ed anthrax vaccine 08/16/12 Given Ambulat ory Pharmac y ANTHRAX VACCINE, UNSPECIFIED 7 2012 319 complet ed Lot#: [id number] [facility] anthrax vaccine 7 2012 [id number] Emergent BioDefense Operations Leivasy ([facility]) complet ed anthrax vaccine DoD typhoid Vi capsular polysaccharid e vaccine 4 2012 [id number] 101 Sanofi Pasteur (PMC) complet ed typhoid Vi capsular polysacch aride vaccine DoD influenza virus vaccine, live 2011 [id number] 111 FiberLightune Inc comple t ed influenza virus vaccine, live 10/30/11 Given Ambulat ory Pharmac y influenza virus vaccine, live, attenuated, for intranasal use 0 2011 [id number] 111 BuzzElement, Inc. (MED) complet ed influenza virus vaccine, live, attenuate d, for intranasa l use DoD tetanus, diphtheria, acellular pertu is 2011 [id number] 115 GlaxNVISION MEDICALKli ri complet ed tetanus, diphtheri a, acellular pertussis 05/22/11 Given Ambulat ory Pharmac y TDAP 2011 115 complet ed tetanus toxoid, reduced diphtheri a toxoid, and acellular pertussis vaccine, adsorbed Lot#: [id number] A [facility] [place] [facility] tetanus toxoid, reduced diphtheria toxoid, and acellular pertu is vaccine, adsorbed 0 2011 [id number] 115 Jaman ([facility]) complet ed tetanus toxoid, reduced diphtheri a toxoid, and acellular pertussis vaccine, adsorbed DoD anthrax vaccine 2011 [id number] 24 Emergent Biosolutions complet ed anthrax vaccine 03/09/11 Given Ambulat ory Pharmac y typhoid Vi capsular polysaccharid e vac 2011 [id number] 101 sanofi pasteur complet ed typhoid Vi capsular polysacch aride vac 03/09/11 Given Ambulat ory Pharmac y ANTHRAX VACCINE, UNSPECIFIED 6 2011 319 complet ed Lot#: [id number] [facility] [place] [facility] TYPHOID, VICPS 3 2011 101 complet ed typhoid Vi capsular polysacch aride vaccine Lot#: [id number] Mfr: SANOFI PASTEUR [facility] anthrax vaccine 6 2011 [id number] Emergent BioDefense Operations Leivasy ([facility]) complet ed anthrax vaccine DoD typhoid Vi capsular polysaccharid e vaccine 3 2011 [id number] 101 Sanofi Pasteur (PMC) complet ed typhoid Vi capsular polysacch aride vaccine DoD influenza virus vaccine, live 2010 [id number] 111 Medimmune Inc comple t ed influenza virus vaccine, live 11/04/10 Given Ambulat ory Pharmac y influenza virus vaccine, live, attenuated, for intranasal use 9 2010 [id number] 111 BuzzElement, Inc. (MED) complet ed influenza virus vaccine, live, attenuate d, for intranasa l use DoD influenza virus vaccine,split 2009 [id number] 15 sanofi pasteur complet ed influenza virus vaccine,s plit 11/04/09 Given Ambulat ory Pharmac y influenza virus vaccine, split virus (incl. purified surface antigen)-reti red CODE 8 2009 [id number] 15 Sanofi Pasteur (PMC) complet ed influenza virus vaccine, split virus (incl. purified surface antigen)- retired CODE DoD anthrax vaccine 2009 [id number] 24 Emergent Biosolutions complet ed anthrax vaccine 09/04/09 Given Ambulat ory Pharmac y anthrax vaccine 5 2009 [id number] Emergent BioDefense Operations Mark (MIP) complet ed anthrax vaccine DoD Novel influenza-H1N 1-09,pf,injec table 2009 [id number] 1 126 Novartis Pharmaceutica ls complet ed Novel influenza -E2G7-50, pf,inject able 02/25/09 Given Ambulat ory Pharmac y Novel influenza-H1N 1-09, preservative- free, injectable 1 2009 [id number] 1 126 Novartis Pharmaceutica l Tyshawn. (NOV) complet ed Novel influenza -Y3C5-94, preservat gauri-free, injectabl e DoD influenza virus vaccine, live 2008 [id number] 111 HYGIEIA Inc comple t ed influenza virus vaccine, live 10/26/08 Given Ambulat ory Pharmac y influenza virus vaccine, live, attenuated, for intranasal use 1 2008 [id number] 111 BuzzElement, Inc. (MED) complet ed influenza virus vaccine, live, attenuate d, for intranasa l use DoD anthrax vaccine 2008 [id number] 24 Emergent Biosolutions complet ed anthrax vaccine 03/27/08 Given Ambulat ory Pharmac y ANTHRAX VACCINE, UNSPECIFIED 2008 319 complet ed Lot#: [id number] [facility] anthrax vaccine 5 2008 [id number] Emergent BioDefense Operations Mark (MIP) complet ed anthrax vaccine DoD influenza virus vaccine,split 2007 [id number] 15 CSL Behring complet ed influenza virus vaccine,s plit 11/14/07 Given Ambulat ory Pharmac y influenza virus vaccine, split virus (incl. purified surface antigen)-reti red CODE 1 2007 [id number] 15 CSL Biotherapies, Inc. (CSL) complet ed influenza virus vaccine, split virus (incl. purified surface antigen)- retired CODE DoD anthrax vaccine 2007 [id number] Emergent Biosolutions complet ed anthrax vaccine 09/12/07 Given Ambulat ory Pharmac y ANTHRAX VACCINE, UNSPECIFIED 4 2007 319 complet ed Lot#: [id number] [facility] anthrax vaccine 4 2007 [id number] Emergent BioDefense Operations Leivasy (MIP) complet ed anthrax vaccine DoD anthrax vaccine 2007 [id number] Emergent Biosolutions complet ed anthrax vaccine 03/30/07 Given Ambulat ory Pharmac y ANTHRAX VACCINE, UNSPECIFIED 3 2007 319 complet ed Lot#: [id number] [facility] anthrax vaccine 3 2007 [id number] Emergent BioDefense [employer] Mark (MIP) complet ed anthrax vaccine DoD anthrax vaccine 2007 [id number] 24 Emergent Biosolutions complet ed anthrax vaccine 03/10/07 Given Ambulat ory Pharmac y ANTHRAX VACCINE, UNSPECIFIED 2 2007 319 complet ed Lot#: [id number] [facility] anthrax vaccine 2 2007 [id number] Emergent BioDef[employer] Leivasy (MIP) complet ed anthrax vaccine DoD anthrax vaccine 2007 [id number] 24 Emergent Biosolutions complet ed anthrax vaccine 02/21/07 Given Ambulat ory Pharmac y ANTHRAX VACCINE, UNSPECIFIED 1 2007 319 complet ed Lot#: [id number] [facility] anthrax vaccine 1 2007 [id number] Emergent BioDefense Operations Mark (MIP) complet ed anthrax vaccine DoD vaccinia (smallpox) vaccine 0 2007 75 () Not Given vaccinia (smallpox ) vaccine DoD influenza virus vaccine, live 2006 [id number] 111 MediGrokkerune Inc comple t ed influenza virus vaccine, live 01/10/07 Given Ambulat ory Pharmac y influenza virus vaccine, live, attenuated, for intranasal use 1 2006 [id number] 111 BuzzElement, Inc. (MED) complet ed influenza virus vaccine, live, attenuate d, for intranasa l use DoD typhoid vaccine, live, oral 2006 [id number] 25 Blaze[employer] [place] complet ed typhoid vaccine, live, oral 03/05/06 Given Ambulat ory Pharmac y typhoid vaccine, live, oral 1 2006 [id number] 25 [employer] ([facility]) complet ed typhoid vaccine, live, oral DoD influenza virus vaccine, live 2005 [id number] 111 [facility] t ed influenza virus vaccine, live 12/04/05 Given Ambulat ory Pharmac y influenza virus vaccine, live, attenuated, for intranasal use 1 2005 [id number] 111 BuzzElement, Inc. (MED) complet ed influenza virus vaccine, live, attenuate d, for intranasa l use DoD influenza virus vaccine, live 2004 [id number] 111 HYGIEIA Inc comple t ed influenza virus vaccine, live 12/25/04 Given Ambulat ory Pharmac y influenza virus vaccine, live, attenuated, for intranasal use 1 2004 [id number] 111 BuzzElement, Inc. (MED) complet ed influenza virus vaccine, live, attenuate d, for intranasa l use DoD influenza virus vaccine, live 2004 [id number] 111 MediGrokkerune Inc comple t ed influenza virus vaccine, live 03/05/04 Given Ambulat ory Pharmac y typhoid Vi capsular polysaccharid e vac 2004 [id number] 101 sanofi pasteur complet ed typhoid Vi capsular polysacch aride vac 03/05/04 Given Ambulat ory Pharmac y typhoid Vi capsular polysaccharid e vaccine 0 2004 [id number] 101 Sanofi Pasteur ([facility]) complet ed typhoid Vi capsular polysacch aride vaccine DoD influenza virus vaccine, live, attenuated, for intranasal use 0 2004 [id number] 111 Algoregoune, Inc. (MED) complet ed influenza virus vaccine, live, attenuate d, for intranasa l use DoD hepatitis A-hepatitis B vaccine 2003 [id number] 104 GlaxoSmithKli ne complet ed hepatitis A-hepatit is B vaccine 12/07/03 Given Ambulat ory Pharmac y HEP A-HEP B 3 2003 104 complet ed hepatitis A and hepatitis B vaccine Lot#: [id number] [facility] hepatitis A and hepatitis B vaccine 3 2003 [id number] 104 SmithKline (SKB) complet ed hepatitis A and hepatitis B vaccine DoD hepatitis A-hepatitis B vaccine 2003 [id number] 104 GlaxoSmithKli ne complet ed hepatitis A-hepatit is B vaccine 07/07/03 Given Ambulat ory Pharmac y HEP A-HEP B 2 2003 104 complet ed hepatitis A and hepatitis B vaccine Lot#: [id number] [facility] hepatitis A and hepatitis B vaccine 2 2003 [id number] 104 SmithKline (SKB) complet ed hepatitis A and hepatitis B vaccine DoD hepatitis A-hepatitis B vaccine 2003 [id number] 6 104 GlaxoSmithKli ne complet ed hepatitis A-hepatit is B vaccine 06/06/03 Given Ambulat ory Pharmac y HEP A-HEP B 1 2003 104 complet ed hepatitis A and hepatitis B vaccine Lot#: [id number] [facility] measles, mumps and rubella virus vaccine 0 2003 03 () Not Given measles, mumps and rubella virus vaccine DoD varicella virus vaccine 1 2003 21 () Not Given varicella virus vaccine DoD hepatitis A and hepatitis B vaccine 1 2003 [id number] 6 104 SmithKline (SKB) complet ed hepatitis A and hepatitis B vaccine DoD poliovirus vaccine, inactivated 2003 [id number] 10 sanofi pasteur complet ed polioviru s vaccine, inactivat ed 06/01/03 Given Ambulat ory Pharmac y tetanus-dipht h toxoids (Td) adult/adol 2003 [id number] 09 sanofi pasteur complet ed tetanus-d iphth toxoids (Td) adult/ado l 06/01/03 Given Ambulat ory Pharmac y tuberculin purified protein derivative 2003 [id number] 96 sanofi pasteur complet ed tuberculi n purified protein derivativ e 06/01/03 Given Ambulat ory Pharmac y meningococcal polysaccharid e (MPSV4) 2003 [id number] 32 sanofi pasteur complet ed meningoco ccal polysacch aride (MPSV4) 06/01/03 Given Ambulat ory Pharmac y influenza virus vaccine, whole virus 2003 [id number] 16 Novartis Pharmaceutica ls complet ed influenza virus vaccine, whole virus 06/01/03 Given Ambulat ory Pharmac y MENINGOCOCCAL MPSV4 2003 32 complet ed meningoco ccal polysacch aride vaccine (MPSV4) Lot#: [id number] Mfr: SANOFI PASTEUR [facility] Beiang TechnologyU [facility] [facility] POLIO, UNSPECIFIED FORMULATION 2003 89 complet ed Sanofi Pasteur Lot#: [id number] [facility] Beiang TechnologyU [facility]S [facility] TD(ADULT) UNSPECIFIED FORMULATION 2003 139 complet ed tetanus and diphtheri a toxoids, adsorbed, preservat gauri free, for adult use (2 Lf of tetanus toxoid and 2 Lf of diphtheri a toxoid) Lot#: [id number] Mfr: SANOFI PASTEUR [facility] Beiang [facility] tetanus and diphtheria toxoids, adsorbed, preservative free, for adult use (2 Lf of tetanus toxoid and 2 Lf of diphtheria toxoid) 0 2003 [id number] 09 Sanofi Pasteur ([facility]) complet ed tetanus and diphtheri a toxoids, adsorbed, preservat gauri free, for adult use (2 Lf of tetanus toxoid and 2 Lf of diphtheri a toxoid) DoD poliovirus vaccine, inactivated 0 2003 [id number] 10 Sanofi Pasteur (PMC) complet ed polioviru s vaccine, inactivat ed DoD influenza virus vaccine, whole virus 0 2003 [id number] PowderJect Pharmaceutica ls (PWJ) complet ed influenza virus vaccine, whole virus DoD meningococcal polysaccharid e vaccine (MPSV4) 0 2003 [id number] 32 Sanofi Pasteur (PMC) complet ed meningoco [...] Date DC Date Status Disposition Source [facility](Fam mara Practice Red) TELE CONSULT [id number] chest congest ion with fever SERGIO LOVE 03/23 [facility](F amily Practic e Red) [facility](Int Med Clinic) OUTPATIENT [id number] URI symptom s PITER MALDONADO A 03/23 Released w/o Limitations [facility](I nt Med Clinic) [facility](Fli ght Medicine Clinic) OUTPATIENT [id number] [facility] 2 YAYA SANTOS 04/27 Released w/o Limitations [facility] [employer](F light Medicin e Clinic) [facility]am [facility]a Practice Red) TELE CONSULT [id number] foot swollen and cant walk on it; pt has an appt tomorro w but ... HANKINSMODESTO 05/05 [employer] [facility] [employer](F amily Practic e Red) [employer] [facility] [employer](Fam mara Practice Blue) OUTPATIENT [id number] swollen painful R foot RADDEN, JAIME D 05/05 Released w/o Limitations [employer] [facility](F amily Practic e Blue) [facility](Fam mara Practice Red) OUTPATIENT [id number] pt injured r foot pain ful when put pressur e painful to touch KATE, SERGIO 05/06 Released w/o Limitations [employer] [facility](F amily Practic e Red) [facility](Opt ometry Clinic) OUTPATIENT [id number] possibl e foreign body LATIA CARVAJAL 05/06 Released w/o Limitations [employer] [facility] [employer](O ptometr y Clinic) [facility](Fam mara Practice Blue) TELE CONSULT [id number] right foot pain RADDEN, JAIME D 05/08 [facility](F amily Practic e Blue) [facility](Fam mara Practice Blue) OUTPATIENT [id number] f/u on gout RADDEN, JAIME D 05/10 Released w/o Limitations [facility](F amily Practic e Blue) [facility](Fam mara Practice Blue) OUTPATIENT [id number] gout RADDEN, JAIME D 05/13 Released w/o Limitations [facility](F amily Practic e Blue) [facility](Fam mara Practice Blue) TELE CONSULT [id number] CONCERN S ABOUT REFERRA L DOM REDMOND 05/14 [facility](F amily Practic e Blue) [facility](Fam mara Practice Red) OUTPATIENT [id number] profile and med refill KATE, SERGIO 07/20 Released with Work/Duty Limitations [facility](F amily Practic e Red) [facility](Fam mara Practice Red) TELE CONSULT [id number] referra l for orthope dic special ist for ankle KAET, SERGIO 08/02 [employer] [facility](F amily Practic e Red) [employer] [facility](Fam mara Practice Red) TELE CONSULT [id number] pt was sent to [facility] and pt was giving a out of work slip MODESTO HANKINS 09/09 [employer] [facility](F amily Practic e Red) [employer] [facility](Fam mara Practice Red) TELE CONSULT [id number] pt needs med refill ADALET 60mg pt has 5 pills left KATE, SERGIO 09/16 [employer] [facility](F amily Practic e Red) [employer] [facility](Fam mara Practice Red) OUTPATIENT [id number] f/u htn (adalat increas ed last appt) KATE SERGIO 10/13 Released w/o Limitations [employer](F amily Practic e Red) [facility](Fam mara Practice Red) OUTPATIENT [id number] [place] DEBBIE Boone 12/13 Released w/o Limitations [employer](F amily Practic e Red) [employer]([facility]am mar[facility] Practice Red) OUTPATIENT [id number] pt pcsing in april, eeds CONOR Blanchard 01/28 Released w/o Limitations [employer](F amily Practic e Red) [facility](Fam mara Practice Red) OUTPATIENT [id number] medical EDIE Rinaldi 03/09 Released w/o Limitations [employer](F amily Practic e Red) [facility](Fam mara Practice Red) OUTPATIENT [id number] F/U from appt Feb 22--med ical EDIE Rinaldi 03/23 Released w/o Limitations [employer](F amily Practic e Red) [facility](Fam mara Practice Red) OUTPATIENT [id number] follow up on bp EDIE IBANEZ 03/30 Released w/o Limitations [facility](F amily Practic e Red) [facility](Fam mara Practice Red) TELE CONSULT [id number] Pt has questio ns about pha and hiv test MODESTO HANKINS 04/08 [employer](F amily Practic e Red) [employer](PHA Cell) OUTPATIENT [id number] pha due [place] miriamboris ce [place] FLEMINGJOIE SCHROEDER Niharika 04/11 Released w/o Limitations [employer](P BUENO Cell) [employer]([facility]) OUTPATIENT [id number] [facility] pe/stru ctural MX YAYA SANTOS 04/12 Released w/o Limitations [employer](F light Medicin e Clinic) [employer]([facility]) OUTPATIENT [id number] Inproce ssing Record Review EDITH DESAI 07/21 Released w/o Limitations [employer]([facility]) [employer]([facility]) OUTPATIENT [id number] PHA JOHANNY AGUILERA 04/27 Released w/o Limitations [employer]([facility] Practic e Clinic) [employer]([facility]) TELE CONSULT [id number] f/u pha ESTONIAN, UN DIAN 05/01 [employer]([facility] Practic e Clinic) [employer]([facility]) OUTPATIENT [id number] f/u 3day bp check ESTONIAN, UN DIAN 05/04 Released w/o Limitations [employer]([facility] Practic e Clinic) [employer]([facility]) OUTPATIENT [id number] [facility]- AUDIOGR AM,MED HY,PHY EX,WORK PLACE EXP,RES P QUEST JUANJO CLEARY 07/05 Released w/o Limitations [employer](F light Surgeon Office) [employer]([facility]) OUTPATIENT [id number] JANNA Garcia 08/03 Sick at Home/Quarter s [employer](F amily Practic e Clinic) [employer]([facility]) OUTPATIENT [id number] - MISSY MCKEON 11/05 Released w/o Limitations [employer](F amily Practic e Clinic) [employer] OUTPATIENT [id number] -BRISA BOURGEOIS 11/06 Sick at Home/Quarter s [employer](F amily Practic e Clinic) [employer]([facility]) OUTPATIENT [id number] ft nasal congest ion product gauri cough clear sore throat JONEL BUSBY 11/09 Sick at Home/Quarter s [employer](F [facility] Practic e Clinic) [employer]([facility]) DENTAL [id number] Exam JOSE RAFAEL MAGAÑA 12/21 Released w/o Limitations [employer](D ental Clinic) [employer]([facility]) DENTAL [id number] DEION Pardo 12/21 Released w/o Limitations [employer](D ental Clinic) [employer]([facility]) TELE CONSULT [id number] VASECTO MY CONSULT XIANG MATHUR 01/28 [employer](F amily Practic e Clinic) [employer]([facility]) OUTPATIENT [id number] Vas Consult XIANG MATHUR 03/01 Released w/o Limitations [employer]([facility] Practic e Clinic) [employer]([facility]) OUTPATIENT [id number] F/U HBP, LABS XIANG MATHUR 04/02 Released w/o Limitations [employer]([facility] Practic e Clinic) [employer]([facility]) OUTPATIENT [id number] PHA ANN MARIE COLÓN 04/18 Released w/o Limitations [employer](P [facility] [facility]) [employer]([facility]) TELE CONSULT [id number] CONLEAV E FOR SURGERY BRYANNA ADORNO 04/25 [employer]([facility] Practic e Clinic) [employer]([facility]) TELE CONSULT [id number] con lv or quarter s XIANG MATHUR 08/12 [employer]([facility] Practic e Clinic) [employer]([facility]) OUTPATIENT [id number] Per XIANG Fitzpatrick 08/13 Released w/o Limitations [employer]([facility] Practic e Clinic) [employer]([facility]) TELE CONSULT [id number] F/U BLOOD PRESSUR E MARK MCCLENDON 09/02 [employer](F am[facility] Practic e Clinic) [employer]([facility]) TELE CONSULT [id number] Deploym ent ELMER Fofana 09/04 [employer](F amily Practic e Clinic) [employer]([facility]) OUTPATIENT [id number] finger pain x months/ pt request ed alterna te pcm. (pt's pcm on leave) MAYITO CHAVEZ 09/05 Released w/o Limitations [employer](F amily Practic e Clinic) [employer]([facility]) TELE CONSULT [id number] CALL BACK FOR DEPLOYM ENT ELMER ALBERTO 09/10 [employer](F amily Practic e Clinic) [employer] OUTPATIENT [id number] [facility] audio normal no exam needed RAMILA ADMIAN 09/12 Released w/o Limitations [employer](F light Surgeon Office) [employer] OUTPATIENT [id number] [facility] STERLING GEE 09/20 Released w/o Limitations [employer](F light Surgeon Office) [employer]([facility]) TELE CONSULT [id number] RETRO REFERRA L REQ CHAPIS FULTON 12/06 Referred for Appointment [employer](F amily Practic e Clinic) [employer]([facility]) TELE CONSULT [id number] quarter s MARK MCCLENDON 12/06 [employer](F amily Practic e Clinic) [employer]([facility]) TELE CONSULT [id number] RETRO REFERRA L MISSY CORTEZ 12/12 Referred for Appointment [employer](F amily Practic e Clinic) [employer]([facility]) TELE CONSULT [id number] NAUSEA/ BUENO X TODAY CHAPIS FULTON 12/24 Referred for Appointment [employer](F [facility] Practic e Clinic) [employer]([facility]) TELE CONSULT [id number] work excuse/ quarter s CANDY TOPETE 12/24 [employer]([facility] am[facility] Practic e Clinic) [employer]([facility]) TELE CONSULT [id number] Quarter s Paperwo rk CAMDENKARLI MICHELEARNEST Hudson 01/03 [employer](F amily Practic e Clinic) [employer]([facility]) OUTPATIENT [id number] NVD, BUENOanitra -JUANJO CASTRO 01/24 Sick at Home/Quarter s [employer](F amily Practic e Clinic) [employer]([facility]) OUTPATIENT [id number] ON GOING RASH X 1 MTH //POSSI BLE DERMATO LOGY BRYANNA WHITNEY 02/05 Released w/o Limitations [employer](F am[facility] Practic e Clinic) [employer]([facility]) TELE CONSULT [id number] CHAPIS Portillo 02/18 Referred for Appointment [employer](F am[facility] Practic e Clinic) [employer]([facility]) OUTPATIENT [id number] SORE THROAT, HEADACH E, FEVER, CHILLS TANNER VILLASEÑOR 02/28 Released w/o Limitations [employer](F amily Practic e Clinic) [employer]([facility]) TELE CONSULT [id number] KEENAN SHERIFF 03/11 Referred for Appointment [employer](F amily Practic e Clinic) [employer]([facility]) TELE CONSULT [id number] NURSE CONSULT /REACTI ON TO MEDS KEENAN SHERIFF 03/20 [employer](F amily Practic e Clinic) [employer]([facility]) OUTPATIENT [id number] sore throat/ med side effects CAMDENCANDY MICHEL Tristan 03/24 Released w/o Limitations [employer](F [facility] Practic e Clinic) [employer]([facility]) OUTPATIENT [id number] MARK Benedict 04/21 Sick at Home/Quarter s [employer](F amily Practic e Clinic) [employer]([facility]) OUTPATIENT [id number] PHA/EMS VICKIE SIU 05/29 Released w/o Limitations [employer](P BUENO Cell) [employer](Fam Med Cl Tm B Non-Ad) TELE CONSULT [id number] ACTIVE DUTY/ RIGHT CALF PAIN KEENAN SHERIFF 08/19 [employer](F am Med Cl Tm B Non-Ad) [employer]([facility] Practice Clinic) OUTPATIENT [id number] right calf pain since last Thursda y ZTCANDY MICHEL 08/20 Released w/o Limitations [employer](F amily Practic e Clinic) [employer](Fam Med Cl Tm B Non-Ad) TELE CONSULT [id number] LIAN HOLT PROFILE /WAS SEEN YESTERD AY KEENAN SHERIFF 08/21 [employer](F am Med Cl Tm B Non-Ad) [employer](Fam Med Cl Tm B Non-Ad) TELE CONSULT [id number] profile extensi on request KISHORE MARROQUIN O 09/05 [employer](F am Med Cl Tm B Non-Ad) [employer](Fam Med Cl Tm B Non-Ad) TELE CONSULT [id number] PROFILE EXTENSI ON CARA KISHORE O 09/08 [facility] Group(F am Med Cl Tm B Non-Ad) [employer](Fam Med Cl Tm B Non-Ad) OUTPATIENT [id number] fu right leg / profile CAMDENKARLI MICHELEARNEST [place] 09/17 Released w/o Limitations [employer](F am Med Cl Tm B Non-Ad) [facility](I Affiliate s) OUTPATIENT [id number] F/U PROFILE JUANJO FULTON L 10/03 Released w/o Limitations [employer](F HI Affilia nikolay) [employer]([facility]) OUTPATIENT [id number] SUMIT ROSEN 10/03 Released with Work/Duty Limitations [facility](P [facility]ys[facility] Therapy Clinic) [employer]([facility]) OUTPATIENT [id number] Rt lower leg pain MARCIALLUIS 10/09 Released with Work/Duty Limitations [facility] Therapy Clinic) [employer]([facility]) OUTPATIENT [id number] NATALIIA GUERIN 10/14 Released with Work/Duty Limitations [employer]([facility] Therapy Clinic) [employer]([facility]) OUTPATIENT [id number] MARCIAL, LUIS 10/16 Released with Work/Duty Limitations [employer](P [facility] Therapy Clinic) [employer]([facility]) OUTPATIENT [id number] BRISA GONZALEZ 10/28 Released with Work/Duty Limitations [employer](P [facility]ysical Therapy Clinic) [employer]([facility]) OUTPATIENT [id number] SUMIT ROSEN 10/29 Released with Work/Duty Limitations [employer](P hysical Therapy Clinic) [employer](Fli t Surgeon Office) OUTPATIENT [id number] [facility] LEIGH TAYLOR 11/21 Released w/o Limitations [employer](F light Surgeon Office) [employer]([facility]) OUTPATIENT [id number] BRISA GONZALEZ 12/19 Released w/o Limitations [employer](P hysical Therapy Clinic) [employer]([facility]) OUTPATIENT [id number] MARCIAL, LUIS 12/29 Released w/o Limitations [employer](P hysical Therapy Clinic) [employer]([facility]) OUTPATIENT [id number] MARCIAL, LUIS 01/02 Released w/o Limitations [employer](P hysical Therapy Clinic) [employer]([facility]) OUTPATIENT [id number] MARCIAL, LUIS 01/05 Released w/o Limitations [employer](P hysical Therapy Clinic) [employer]([facility]) OUTPATIENT [id number] SUMIT ROSEN 01/26 Released with Work/Duty Limitations [employer](P hysical Therapy Clinic) [employer]([facility]) OUTPATIENT [id number] MARCIAL, LUIS 02/13 Released with Work/Duty Limitations [employer](P hysical Therapy Clinic) [employer]([facility]) OUTPATIENT [id number] LUIS MARCIAL 02/20 Released with Work/Duty Limitations [employer](P hysical Therapy Clinic) [employer]([facility]) OUTPATIENT [id number] NATALIIA GUERIN 03/10 Released with Work/Duty Limitations [employer](P hysical Therapy Clinic) [employer]([facility] Affiliate s) TELE CONSULT [id number] PRE DEPLOYM ENT CLEARAN CE APR 14 2011 DAYTON LORA 03/13 [employer]([facility] Affilia nikolay) [employer]([facility]) OUTPATIENT [id number] LISA BRISA S 03/13 Released with Work/Duty Limitations [employer](P hysical Therapy Clinic) [employer]([facility]) OUTPATIENT [id number] LUIS MARCIAL 03/16 Released with Work/Duty Limitations [employer](P hysical Therapy Clinic) [employer]([facility]) OUTPATIENT [id number] SUMIT ROSEN E 04/10 Released with Work/Duty Limitations [employer](P hysical Therapy Clinic) [employer](Fam Med Cl Tm B Non-Ad) OUTPATIENT [id number] F/U PROFILE / MED ROHIT LUCIANO 05/24 Released w/o Limitations [employer](F am Med Cl Tm B Non-Ad) [employer]([facility] n [facility] Team D) OUTPATIENT [id number] chest cold, hurt finger SKYLAR ARIAS 07/22 Released w/o Limitations [employer](O del cid [facility] Team D) [employer](Fam Med Cl Tm B Non-Ad) TELE CONSULT [id number] Notes Entered by: RICHARD CRYSTAL 03 Aug [id number] ------- ------- ------- ------- -- Physica l Therapy ROHIT Stewart 08/02 [employer](F am Med Cl Tm B Non-Ad) [employer]([facility]) TELE CONSULT [id number] Notes Entered by: Da WORKMAN 01 Dec 2011 1158 ------- ------- ------- ------- -- ER VISIT F/U MISSY CORTEZ Tristan 11/30 [employer]([facility]) [employer]([facility] Med Tm B Non-Ad) TELE CONSULT [id number] Notes Entered by: Da WORKMAN 01 Dec 2011 1204 ------- ------- ------- ------- -- L. FOOT PAIN REYNA MOREL 11/30 [facility]( am Med Cl Tm B Non-Ad) [facility]) OUTPATIENT [id number] left foot pain//c VENITA Kumar 12/02 Released w/o Limitations [facility]) [facility] Med Cl Tm B Non-Ad) TELE CONSULT [id number] Notes Entered by: REYNA MOREL 24 Dec 2011 1339 ------- ------- ------- ------- -- Con leave request REYNA MOREL 12/23 [facility] Med Cl Tm B Non-Ad) [facility]) TELE CONSULT [id number] Notes Entered by: STACY LIN 29 Dec 2011 0941 ------- ------- ------- ------- -- CON LEAVE EXT REYNA MOREL 12/28 [facility] nikolay) [employer]([facility] Med Cl Tm B Non-Ad) TELE CONSULT [id number] Notes Entered by: ROHIT CLARK 11 Jan 2012 1712 ------- ------- ------- ------- -- ROHIT Tan 01/10 [employer](F am Med Cl Tm B Non-Ad) [employer](Fam Med Cl Tm B Non-Ad) OUTPATIENT [id number] nausea diarrhe a some lighthe adednes s x 3 days// DEJA LEOS 04/29 Sick at Home/Quarter s [employer](F am Med Cl Tm B Non-Ad) [employer]([facility] Surgeon [facility]) OUTPATIENT [id number] Notes Entered by: Da WORKMAN 02 May 2012 0935 ------- ------- ------- ------- -- f/u n/DELGADO Glover 05/02 Sick at Home/Quarter s [employer] [facility](F light Surgeon Office) [facility](Fam Med Cl Tm B Non-Ad) TELE CONSULT [id number] Notes Entered by: KAMERON GE 30 May 2012 1304 ------- ------- ------- ------- -- ACTIVE DUTY PT WITH RASH/ RIGHT ARM MISSY CORTEZ 05/30 [facility] Group(F am Med Cl Tm B Non-Ad) [facility](Fam Med Cl Tm B Non-Ad) OUTPATIENT [id number] nurse clinic - rash// MISSY CORTEZ 05/30 Released w/o Limitations [employer](F am Med Cl Tm B Non-Ad) [facility]geon [facility]) OUTPATIENT [id number] [facility] BEVERLY BATES Edgar 06/06 Released w/o Limitations [employer](F light Surgeon Office) [facility](Fam Med Cl Tm B Non-Ad) TELE CONSULT [id number] Notes Entered by: ALIYA MCKEON 04 Jul 2012 1012 ------- ------- ------- ------- -- Network Results -RHEUMA TOLOGY 05/28 MISSY CORTEZ 07/04 [employer](F am Med Cl Tm B Non-Ad) [employer]([facility]) OUTPATIENT [id number] PHA ZACHARY MCGEE 07/12 Released w/o Limitations [employer](P [facility]ENO Cell) [employer](Fam Med Cl Tm B Non-Ad) OUTPATIENT [id number] MED CK, BP ROHIT NANCE 08/03 Released w/o Limitations [employer](F am Med Cl Tm B Non-Ad) [employer](Dep loyment Health Assessmen ts) OUTPATIENT [id number] Pre BREE VILLALOBOS 08/16 Released w/o Limitations [employer](D eployme Health Assessm ents) [employer]([facility]) OUTPATIENT [id number] Notes Entered by: William ROSE 06 Sep 2012 1231 ------- ------- ------- ------- -- VAIBHAV STOKES 09/06 Released w/o Limitations [employer]([facility]) [employer](Fam Med Cl Tm B Non-Ad) TELE CONSULT [id number] Notes Entered by: NEELAM CONROY 14 Sep 2012 1318 ------- ------- ------- ------- -- PRE DEPLOY ENT ROHIT MARTINES 09/[employer](F am Med Cl Tm B Non-Ad) [facility] OUTPATIENT [id number] Theater Provider 04/27 Released w/o Limitations [facility](Fam Med Cl Tm B Non-Ad) TELE CONSULT [id number] Notes Entered by: KAMERON GE 04 Sep 2013 0837 ------- ------- ------- ------- -- ACTIVE DUTY/ GARCÍA Hernandez/ KEENAN GONZALEZ 09/04 Referred for Appointment [facility] [employer] [facility](F am Med Cl Tm B Non-Ad) [employer](Wai t Surgeon Office) OUTPATIENT [id number] [facility] SARAH JONES 09/04 Released w/o Limitations [facility](F light Surgeon Office) [facility](Fam Med Cl Tm B Non-Ad) OUTPATIENT [id number] BP med refill ROHIT CLARK 09/06 Released w/o Limitations [employer] [facility](F am Med Cl Tm B Non-Ad) [facility] OUTPATIENT [id number] sleep LONG, DELVIDA L 09/06 Released w/o Limitations [employer](I ntegrat ed Behavio ral Hlth Cln) [facility](Dep loyment Health Assessmen ts) OUTPATIENT [id number] DHA3, 40 min BREE HOLT 09/14 Released w/o Limitations [employer](D eployme nt Health Assessm ents) [facility]) OUTPATIENT [id number] PHA-WHA TO BE COMPLET ED DIANA WEBSTER 09/14 Released w/o Limitations [employer](P BUENO Cell) [facility]) OUTPATIENT [id number] F/U sleep LONG, DELVIDA L 09/22 Released w/o Limitations [employer](I ntegrat ed Behavio ral Hlth Cln) [facility](Fam Med Cl Tm B Non-Ad) TELE CONSULT [id number] Notes Entered by: KAMERON EG 22 Sep 2013 1527 ------- ------- ------- ------- -- ACTIVE DUTY/ PULLED GROIN WHILE RUNNING KEENAN SHERIFF 09/22 Referred for Appointment [facility](F am Med Cl Tm B Non-Ad) [facility](Fam Med Cl Tm B Non-Ad) OUTPATIENT [id number] left groin pain ROHIT CLARK 09/25 Released with Work/Duty Limitations [employer](F am Med Cl Tm B Non-Ad) [facility](Int [facility]) OUTPATIENT [id number] F/U sleep LONG, DELVIDA L 09/28 Released w/o Limitations [facility] [employer](Fam Med Cl Tm B Non-Ad) TELE CONSULT [id number] Notes Entered by: KAMERON GE 20 Oct 2013 0946 ------- ------- ------- ------- -- ACTIVE DUTY/ POSSIBL E STREP THROAT KEENAN SHERIFF 10/20 Referred for Appointment [employer](F am Med Cl Tm B Non-Ad) [facility](Fam Med Cl Tm B Non-Ad) TELE CONSULT [id number] Notes Entered by: KEENAN SHERIFF 24 Oct 2013 1321 ------- ------- ------- ------- -- Lab results KEENAN SHERIFF 10/24 Referred for Appointment [employer](F am Med Cl Tm B Non-Ad) [facility](Fam Med Cl Tm B Non-Ad) TELE CONSULT [id number] Notes Entered by: Edgar PENA 01 Dec 2013 0743 ------- ------- ------- ------- -- ER F/U KEENAN SHERIFF 12/01 Immediate Referral [employer](F am Med Cl Tm B Non-Ad) [facility](Fam Med Cl Tm B Non-Ad) OUTPATIENT [id number] f/u - left ROHIT Jones 12/04 Sick at Home/Quarter s [employer](F am Med Cl Tm B Non-Ad) [employer](Fam Med Cl Tm B Non-Ad) OUTPATIENT [id number] F/U ROHIT Vidal 12/08 Released w/o Limitations [employer](F am Med Cl Tm B Non-Ad) [employer](Fam Med Cl Tm B Non-Ad) TELE CONSULT [id number] Notes Entered by: KAMERON GE 18 Jan 2014 1033 ------- ------- ------- ------- -- ACTIVE DUTY/ PROFILE ISSUE FLOR KWAN N 01/18 Referred for Appointment [employer](F am Med Cl Tm B Non-Ad) [employer](Fam Med Cl Tm B Non-Ad) TELE CONSULT [id number] Notes Entered by: BROOKE HERNADEZ 09 Mar 2014 1523 ------- ------- ------- ------- -- Out Process shannon bucio FLOR KWAN Evangelina 03/09 Released to Self Care [employer](F am Med Cl Tm B Non-Ad) [facility] [place] [address](AFN G 104 Med Sq-FM) OUTPATIENT [id number] Notes Entered by: Antoinette GUILLEN II 16 Jul 2016 0730 ------- ------- ------- ------- -- Short Non-Fly / Occupat [facility] MARTHA MONTERO 07/16 Released w/o Limitations [facility] [place] [address](A FNG 104 Med Sq-FM) [facility] [place] [address](AFN G 104 Med Sq-FM) OUTPATIENT [id number] Notes Entered by: MARCIA MEDEL 28 Nov 2016 0941 ------- ------- ------- ------- -- Med f/u 469 MARCIA MEDEL 11/28 Released with Work/Duty Limitations [facility] [place] [address](A FNG 104 Med Sq-FM) [facility] [place] [address](AFN G 104 Med Sq-FM) OUTPATIENT [id number] Notes Entered by: LY JACKSON 15 Jan 2017 1329 ------- ------- ------- ------- -- Provide r f/u JOHANNY BRADEN 01/15 Released w/o Limitations [facility] [place] [address](A FNG 104 Med Sq-FM) [facility] [place] [address](AFN G 104 Med Sq-FM) OUTPATIENT [id number] Notes Entered by: TREY BULLOCK 18 Mar 2017 1320 ------- ------- ------- ------- -- JOSE RAFAEL SHORE 03/18 Released with Work/Duty Limitations [facility] [place] [address](A FNG 104 Med Sq-FM) [facility] [place] [address](AFN G 104 Med Sq-FM) OUTPATIENT [id number] Notes Entered by: HOLLIE ALTMAN 09 Apr 2017 1726 ------- ------- ------- ------- -- MARTHA Esparza 04/09 Released w/o Limitations [facility] [place] [address](A FNG 104 Med Sq-FM) [facility] [place] [address](AFN G 104 Med Sq-FM) OUTPATIENT [id number] Notes Entered by: TREY BULLOCK 16 Apr 2017 1511 ------- ------- ------- ------- -- Luis Enrique mirza MD note review JOSE RAFAEL BULLOCK 04/16 Released with Work/Duty Limitations [facility] [place] [address](A FNG 104 Med Sq-FM) [facility] [place] [address](AFN G 104 Med Sq-FM) OUTPATIENT [id number] Notes Entered by: JOHANNY BRADEN 25 Feb 2018 1317 ------- ------- ------- ------- -- right Juan M dotsoni tis, RTD JOHANNY BRADEN 02/25 Released w/o Limitations [facility] [place] [address](A FNG 104 Med Sq-FM) [facility] [place] [address](AFN G 104 Med Sq-FM) OUTPATIENT [id number] Notes Entered by: JOHANNY BRADEN 15 Apr 2018 1026 ------- ------- ------- ------- -- Occ/Ski n exam and PHAQ JOHANNY BRADEN 04/15 Released w/o Limitations [facility] [place] [address](A FNG 104 Med Sq-FM) [facility] [place] [address](AFN G 104 Med Sq-FM) OUTPATIENT [id number] Notes Entered by: MARICRUZ MONTERO 21 May 2018 1040 ------- ------- ------- ------- -- 469 f/u MARTHA MONTERO 05/21 [facility] [place] [address](A FNG 104 Med S[address]-FM) [facility] [place] [address](AFN G 104 Med Sq-FM) OUTPATIENT [id number] Notes Entered by: MARCIA MEDEL 17 Jun 2018 1443 ------- ------- ------- ------- -- right foot MARCIA MEDEL 06/17 Released with Work/Duty Limitations [facility] [place] [address](A FNG 104 Med Sq-FM) [facility] [place] [address](AFN G 104 Med Sq-FM) OUTPATIENT [id number] 5 Notes Entered by: MARCIA MEDEL 01 Oct 2018 0949 ------- ------- ------- ------- -- follow up MARCIA Ordaz 10/01 [facility] [place] [address](A FNG 104 Med Sq-FM) [facility], [place] [address](AFN G 104 Med Sq-FM) OUTPATIENT [id number] Notes Entered by: GIANFRANCO MARCIATIA DUMONT 08 Mar 2019 1449 ------- ------- ------- ------- -- R foot pain MARCIA MEDEL JULIA 03/08 Released with Work/Duty Limitations [facility] [place] [address](A FNG 104 Med Sq-FM) [place] [address](AFN G 104 Med Sq-FM) TELE CONSULT [id number] Notes Entered by: MARCIA MEDEL 09 Mar 2019 1020 ------- ------- ------- ------- -- foot pain MARCIA MEDEL 03/09 [facility] [place] [address](A FNG 104 Med Sq-FM) [place] [address](AFN G 104 Med Sq-FM) OUTPATIENT [id number] 7 Notes Entered by: SCOTT HINDS 09 Mar 2019 1439 ------- ------- ------- ------- -- Annual MSE / OH exams MARCIA MEDEL JULIA 03/09 Released with Work/Duty Limitations [facility] [place] [address](A FNG 104 Med Sq-FM) [place] [address](AFN G 104 Med Sq-FM) OUTPATIENT [id number] 4 Notes Entered by: MARCIA MEDEL 21 Mar 2019 1022 ------- ------- ------- ------- -- JORGE LUIS GIANFRANCO MARCIA DUMONT 03/21 Released with Work/Duty Limitations [facility] [place] [address](A FNG 104 Med Sq-FM) [place] [address](AFN G 104 Med Sq-FM) TELE CONSULT [id number] Notes Entered by: MARCIA MEDEL 14 Apr 2019 1039 ------- ------- ------- ------- -- Op note MARCIA MEDEL 04/14 [facility] [place] [address](A FNG 104 Med Sq-FM) [facility] [place] [address](AFN G 104 Med Sq-FM) TELE CONSULT [id number] 9 Notes Entered by: MARCIA MEDEL 21 Apr 2019 1409 ------- ------- ------- ------- -- foot pain MARCIA MEDEL 04/20 [facility] [place] [address](A FNG 104 Med Sq-FM) [facility], [place] [address](AFN G 104 Med Sq-FM) TELE CONSULT [id number] Notes Entered by: MARCIA MEDEL 26 Apr 2019 1249 ------- ------- ------- ------- -- R foot pain MARCIA MEDEL 04/25 [facility] [place] [address](A FNG 104 Med Sq-FM) [facility] [place] [address](AFN G 104 Med Sq-FM) TELE CONSULT [id number] Notes Entered by: MARCIA MEDEL 17 May 2019 1151 ------- ------- ------- ------- -- foot pain MARCIA MEDEL 05/16 [facility] [place] [address](A FNG 104 Med Sq-FM) [facility] [place] [address](AFN G 104 Med Sq-FM) TELE CONSULT [id number] Notes Entered by: TREY BULLOCK 08 Jun 2019 0912 ------- ------- ------- ------- -- note review JOSE RAFAEL BULLOCK 06/07 [facility] [place] [address](A FNG 104 Med Sq-FM) [facility] [place] [address](AFN G 104 Med Sq-FM) TELE CONSULT [id number] MARCIA MEDEL 08/14 [facility] [place] [address](A FNG 104 Med Sq-FM) [facility] [place] [address](AFN G 104 Med Sq-FM) TELE CONSULT [id number] Notes Entered by: MARCIA MDEEL 12 Oct 2019 1405 ------- ------- ------- ------- -- follow up MARCIA MEDEL 10/11 [facility] [place] [address](A FNG 104 Med Sq-FM) [facility] [place] [address](AFN G 104 Med Sq-FM) OUTPATIENT [id number] 4 Notes Entered by: MARCIA MEDEL 24 Oct 2019 0916 ------- ------- ------- ------- -- Right foot pain MARCIA MEDEL 10/23 Released with Work/Duty Limitations [facility] [place] [address](A FNG 104 Med Sq-FM) [facility] [place] [address](AFN G 104 Med Sq-FM) TELE CONSULT [id number] 3 Notes Entered by: MARCIA MEDEL 09 Jan 2020 1459 ------- ------- ------- ------- -- R foot pain MARCIA MEDEL 01/08 [facility] [place] [address](A FNG 104 Med Sq-FM) [facility] [place] [address](AFN G 104 Med Sq-FM) TELE CONSULT [id number] Notes Entered by: MARCIA MEDEL 05 Mar 2020 0904 ------- ------- ------- ------- -- R foot pain MARCIA MEDEL 03/05 [facility] [place] [address](A FNG 104 Med Sq-FM) [facility] [place] [address](AFN G 104 Med Sq-FM) OUTPATIENT [id number] MARCIA MEDEL 03/14 Released w/o Limitations [facility] [place] [address](A FNG 104 Med Sq-FM) [facility] [place] [address](AFN G 104 Med Sq-FM) OUTPATIENT [id number] Notes Entered by: MARCIA MEDEL 14 Mar 2020 1055 ------- ------- ------- ------- -- PHAQ MARCIA MEDEL 03/14 Released with Work/Duty Limitations [facility] [place] [address](A FNG 104 Med Sq-FM) [facility] [place] [address](AFN G 104 Med Sq-FM) TELE CONSULT [id number] Notes Entered by: MARCIA MEDEL 03 Apr 2020 1443 ------- ------- ------- ------- -- R foot pain MARCIA MEDEL 04/03 [facility] [place] [address](A FNG 104 Med Sq-FM) [facility] [place] [address](AFN G 104 Med Sq-FM) TELE CONSULT [id number] 3 Notes Entered by: MARCIA MEDEL 09 Apr 2020 1056 ------- ------- ------- ------- -- return MARCIA MEDEL 04/09 [facility] [place] [address](A FNG 104 Med Sq-FM) [facility], [facility](AFN G 104 Med Sq-FM) OUTPATIENT [id number] Notes Entered by: RUTH SHIRLEY 24 Apr 2020 1247 ------- ------- ------- ------- -- Audiogr am /Respir ator Fit Test /[place] Questio nnaire/ HIV/Vit als/ Provide r([place]-Ph ysica MARCIA MEDEL NOONE 04/24 Released w/o Limitations [facility] [place] [address](A FNG 104 Med Sq-FM) [facility], [place] [address](AFN G 104 Med Sq-FM) TELE CONSULT [id number] 4 Notes Entered by: MARCIA MEDEL 11 Jul 2020 1554 ------- ------- ------- ------- -- R foot pain MARCIA MEDEL 07/11 [facility] [place] [address](A FNG 104 Med Sq-FM) [facility], [place] [address](AFN G 104 Med Sq-FM) OUTPATIENT [id number] 9 Notes Entered by: MARCIA MEDEL 10 Sep 2020 0936 ------- ------- ------- ------- -- NEVAEHID MARCIA MEDEL 09/10 Sick at Home/Quarter s [facility] [place] [address](A FNG 104 Med Sq-FM) [facility], [place] [address](AFN G 104 Med Sq-FM) TELE CONSULT [id number] 3 MARCIA MEDEL 12/10 [facility] [place] [address](A FNG 104 Med Sq-FM) [place] [address](AFN G 104 Med Sq-FM) TELE CONSULT [id number] 2 MARCIA MEDEL 01/01 [facility] [place] [address](A FNG 104 Med Sq-FM) [facility] [place] [address](AFN G 104 Med Sq-FM) TELE CONSULT [id number] MARCIA MEDEL 01/07 [facility] [place] [address](A FNG 104 Med Sq-FM) [facility] [place] [address](AFN G 104 Med Sq-FM) TELE CONSULT [id number] MARCIA MEDELCONNIE 02/05 [facility] [place] [address](A FNG 104 Med Sq-FM) [facility] [place] [address](AFN G 104 Med Sq-FM) OUTPATIENT [id number] Notes Entered by: MARICA MEDEL JULIA 25 Feb 2021 1434 ------- ------- ------- ------- -- JORGE LUIS MARCIA MEDEL JULIA 02/25 Released with Work/Duty Limitations [facility] [place] [address](A FNG 104 Med Sq-FM) [facility] [place] [address](AFN G 104 Med Sq-FM) OUTPATIENT [id number] 2 Notes Entered by: SARAH MCPHERSON 24 Apr 2021 1402 ------- ------- ------- ------- -- Occupat ional Health JOSE RAFAEL Baig 04/24 Released with Work/Duty Limitations [facility] [place] [address](A FNG 104 Med Sq-FM) [facility] [place] [address](AFN G 104 Med Sq-FM) TELE CONSULT [id number] MARCIA MEDEL JULIA 09/24 [facility] [place] [address](A FNG 104 Med Sq-FM) [facility] [place] [address](AFN G 104 Med Sq-FM) TELE CONSULT [id number] 2 MARCIA MEDEL 10/22 [facility] [place] [address](A FNG 104 Med Sq-FM) [place] [place] [address](AFN G 104 Med Sq-FM) TELE CONSULT [id number] 3 MARCIA MEDEL 01/15 [facility] [place] [address](A FNG 104 Med Sq-FM) [facility] [place] [address](AFN G 104 Med Sq-FM) TELE CONSULT [id number] 5 MARCIA MEDEL 03/13 [facility] [place] [address](A FNG 104 Med Sq-FM) [facility] [place] [address](AFN G 104 Med Sq-FM) OUTPATIENT [id number] 5 Notes Entered by: MARCIA MEDELCONNIE 17 Mar 2022 1610 ------- ------- ------- ------- -- JORGE LUIS MARCIA MEDELCONNIE 03/17 Released with Work/Duty Limitations [facility] [place] [address](A FNG 104 Med Sq-FM) [place] [place] [address](AFN G 104 Med Sq-FM) OUTPATIENT [id number] Notes Entered by: MALVIN HARTLEY 16 Apr 2022 1641 ------- ------- ------- ------- -- KEKE Armstrong 04/16 Released w/o Limitations [facility] [place] [address](A FNG 104 Med Sq-FM) [facility] Outpatient Encounter [id number] 04/08 [facility] [id number] MDG Between Visit [id number] 04/20 Discharge Disposition: Home or Self Care [id number] MDG [facility] Outpatient Encounter [id number] 05/18 [facility] Encounter [id number] [facility] Out[facility] Encounter [id number] 03/02 [facility] OFFICE O/P NEW MOD 45 MIN [id number] Diagnos is: ICD-10- CM I10 Essenti al (primar y) hyperte GERARD Fortune 03/02 [facility] Out[facility] Encounter [id number] [facility] CASE MANAGEMENT [id number] Diagnos is: ICD-10- CM Z71.89 Other specifi ed job placement counselor JOY Contreras 03/03 [facility] Outpatient Encounter [id number] 03/07 [facility] Encounter [id number] 03/10 [facility] Encounter [id number] 03/10 [facility] Outpatient Encounter [id number] 03/13 [facility] CASE MANAGEMENT [id number] Diagnos is: ICD-10- CM Z71.89 Other specifi ed job placement counselor JOY Contreras 03/20 [facility] CASE MANAGEMENT [id number] Diagnos is: ICD-10- CM Z71.89 Other specifi ed job placement counselor JOY Contreras 03/27 [facility] Outpatient Encounter [id number] 03/27 [facility] Outpatient Encounter [id number] 03/29 [facility] Procedures Combined list of: 1) Procedures from Department of Veterans Affairs facilities going back up to thelast 18 months, not all [place] non-surgical procedures are included; 2) All procedures from the Department of Defense facilities. Procedure Procedure Type Code Date Perfomer Comments Sourc e No data available for this section [facility] SPECIAL REPORTS SUCH INSURANCE FORMS, MORE THAN THE INFORMATION CONVEYED IN THE USUAL MEDICAL COMMUNICATIONS OR STANDARD REPORTING FORM 2003 [facility] PURE TONE AUDIOMETRY (THRESHOLD); AIR ONLY 2022 DoD EDUCATIONAL SUPPLIES, SUCH BOOKS, TAPES, AND PAMPHLETS, FOR THE PATIENT'S EDUCATION AT COST TO PHYSICIAN OR OTHER QUALIFIED HEALTH DECAL DECORATOR 2003 [facility] SCREENING TEST, PURE TONE, AIR ONLY 2013 DoD NEUROPSYCHOLOGICAL TESTING (EG, [place] CARD SORTING TEST), ADMINISTERED BY A COMPUTER, WITH QUALIFIED HEALTH DECAL DECORATOR INTERPRETATION AND REPORT 2012 DoD PURE TONE [...] DoD UNLISTED PULMONARY SERVICE OR PROCEDURE 2009 [facility] SCREENING TEST, PURE TONE, AIR ONLY 2009 [facility] TELE ASSESS & MGT SRV PROV QUAL [...] SERVICES, IN ADDITION TO BASIC SERVICE 2006 [facility] PURE TONE AUDIOMETRY (THRESHOLD); AIR ONLY 2006 DoD THERAPEUTIC PROCEDURE, 1 OR MORE AREAS, EACH 15 MINUTES; THERAPEUTIC EXERCISES TO DEVELOP STRENGTH AND ENDURANCE, RANGE OF MOTION AND FLEXIBILITY 2005 [facility] THERAPEUTIC PROCEDURE, 1 OR MORE AREAS, EACH 15 MINUTES; THERAPEUTIC EXERCISES TO DEVELOP STRENGTH AND ENDURANCE, RANGE OF MOTION AND FLEXIBILITY 2005 [facility] VIS FUNCT SCREEN,AUTOMAT/SEMI- AUTOMAT BILAT QUANT DETERM VISUAL ACUITY,OCULAR ALIGN,COLOR VISION,PSEUDOISOCHRO MAT PLATES,& FIELD VIS (MAY INC ALL/SOME SCRN DETERM FOR CONTRAST SENSITIV,VIS UND GLARE) 2005 [facility] SCREENING TEST OF VISUAL ACUITY, QUANTITATIVE, BILATERAL 2005 [facility] INFLUENZA VIRUS VACCINE, TRIVALENT, LIVE (LAIV3), FOR INTRANASAL USE 2004 [facility] SCREENING TEST OF VISUAL ACUITY, QUANTITATIVE, BILATERAL 2003 [facility] Spirometry Spirometry 96651 2013 SARAH JONES [facility] Audiogram (Screening) Audiogram (Screening) 21607 2013 SARAH JONES [facility] Psychometric Neuropsych Testing Battery Admin By Computer Psychometric Neuropsych Testing Battery Admin By Computer 16891 2012 ABHISHEK MAS [facility] Threshold Audiogram (Pure Tone) Threshold Audiogram (Pure Tone) 99774 2012 BEVERLY BATES [facility] Pulmonary Function Tests Pulmonary Function Tests 22852 2012 BEVERLY BATES IV Infusion For Hydration Each Additional Hour IV Infusion For Hydration Each Additional Hour 45050 2012 DEJA LEOS IV Infusion For Hydration 31 Minutes To 1 Hour IV Infusion For Hydration 31 Minutes To 1 Hour 20550 2012 EDJA LEOS Intravenous Catheter Placement Intravenous Catheter Placement 29849 2012 DEJA LEOS Physical Therapy Service Re-Evaluation Physical Therapy Service Re-Evaluation 62566 2011 SUMIT ROSEN [facility] Modalities Heat Hot Packs Modalities Heat Hot Packs 23797 2011 MARCIAL, LUIS [facility] Physical Therapy Neuromuscular Re-education Physical Therapy Neuromuscular Re-education 09201 2011 MARCIAL, LUIS DoD Physical Therapy: ___ Se ion Segments, 15 Minutes Each Physical Therapy: ___ Session Segments, 15 Minutes Each 84496 2011 MARCIAL, LUIS DoD Modalities Heat Hot Packs Modalities Heat Hot Packs 62314 2011 BRISA GONZALEZ [facility] Physical Therapy Neuromuscular Re-education Physical Therapy Neuromuscular Re-education 98978 2011 BRISA GONZALEZ [facility] Physical Therapy: ___ Se ion Segments, 15 Minutes Each Physical Therapy: ___ Session Segments, 15 Minutes Each 33856 2011 BRISA GONZALEZ [facility] Modalities Heat Hot Packs Modalities Heat Hot Packs 09360 2011 NATALIIA GUERIN Physical Therapy Neuromuscular Re-education Physical Therapy Neuromuscular Re-education 00488 2011 NATALIIA GUERIN Physical Therapy: ___ Se ion Segments, 15 Minutes Each Physical Therapy: ___ Session Segments, 15 Minutes Each 35936 2011 NATALIIA GUERIN Modalities Heat Hot Packs Modalities Heat Hot Packs 14924 2011 MARCIAL, PEDRO [facility] Physical Therapy: ___ Se ion Segments, 15 Minutes Each Physical Therapy: ___ Session Segments, 15 Minutes Each 56649 2011 MARCIAL, LUIS [facility] Physical Therapy Neuromuscular Re-education Physical Therapy Neuromuscular Re-education 65015 2011 MARCIAL, LUIS [facility] Modalities Heat Hot Packs Modalities Heat Hot Packs 83131 2010 MARCIAL, LUIS [facility] Physical Therapy Neuromuscular Re-education Physical Therapy Neuromuscular Re-education 87353 2010 MARCIAL, LUIS [facility] Physical Therapy: ___ Se ion Segments, 15 Minutes Each Physical Therapy: ___ Session Segments, 15 Minutes Each 81512 2010 MARCIAL, LUIS [facility] Physical Therapy Service Re-Evaluation Physical Therapy Service Re-Evaluation 76994 2010 SUMIT ROSEN E [facility] Physical Therapy Neuromuscular Re-education Physical Therapy Neuromuscular Re-education 81981 2010 MARCIAL, LUIS DoD Modalities Heat Hot Packs Modalities Heat Hot Packs 02209 2010 MARCIAL, LUIS DoD Physical Therapy: ___ Se ion Segments, 15 Minutes Each Physical Therapy: ___ Session Segments, 15 Minutes Each 98341 2010 MARCIAL, LUIS DoD Modalities Heat Hot Packs Modalities Heat Hot Packs 11979 2010 MARCIAL, LUIS DoD Physical Therapy: ___ Se ion Segments, 15 Minutes Each Physical Therapy: ___ Session Segments, 15 Minutes Each 84122 2010 MARCIAL, LUIS DoD Physical Therapy Neuromuscular Re-education Physical Therapy Neuromuscular Re-education 65929 2010 MARCIAL, LUIS DoD Physical Therapy Neuromuscular Re-education Physical Therapy Neuromuscular Re-education 60031 2010 MARCIAL, LUIS DoD Modalities Heat Hot Packs Modalities Heat Hot Packs 42174 2010 MARCIAL, LUIS DoD Physical Therapy: ___ Se ion Segments, 15 Minutes Each Physical Therapy: ___ Session Segments, 15 Minutes Each 60952 2010 MARCIAL, LUIS DoD Modalities Heat Hot Packs Modalities Heat Hot Packs 47630 2010 BRISA GONZALEZ Physical Therapy Neuromuscular Re-education Physical Therapy Neuromuscular Re-education 42487 2010 BRISA GONZALEZ [facility] Physical Therapy: ___ Se ion Segments, 15 Minutes Each Physical Therapy: ___ Session Segments, 15 Minutes Each 09368 2010 BRISA GONZALEZ Pulmonary Function Tests Pulmonary Function Tests 91499 2010 LEIGH TAYLOR [facility] Physical Therapy Service Re-Evaluation Physical Therapy Service Re-Evaluation 44891 2010 SILASSUMIT E [place] Modalities Heat Hot Packs Modalities Heat Hot Packs 98260 2010 BRISA GONZALEZ Modalities Ultrasound Modalities Ultrasound 03403 2010 BRISA GONZALEZ A isted Exercises For ROM Assisted Exercises For ROM 18669 2010 BRISA GONZALEZ Modalities Heat Hot Packs Modalities Heat Hot Packs 67624 2010 MARCIAL, LUIS DoD Modalities Ultrasound Modalities Ultrasound 42607 2010 MARCIAL, LUIS DoD A isted Exercises For ROM Assisted Exercises For ROM 05227 2010 MARCIAL, LUIS DoD Modalities Ultrasound Modalities Ultrasound 42970 2010 GUERIN, NATALIIA A DoD Modalities Heat Hot Packs Modalities Heat Hot Packs 52280 2010 GUERIN, NATALIIA A DoD A isted Exercises For ROM Assisted Exercises For ROM 24493 2010 GUERIN, NATALIIA A DoD Modalities Heat Hot Packs Modalities Heat Hot Packs 55166 2010 MARCIAL, LUIS DoD Modalities Ultrasound Modalities Ultrasound 99119 2010 MARCIAL, LUIS DoD A isted Exercises For ROM Assisted Exercises For ROM 62611 2010 MARCIAL, LUIS DoD Physical Therapy Service Evaluation Physical Therapy Service Evaluation 50614 2010 [facility] Brenda Onofre Pulmonary Function Tests Pulmonary Function Tests 64922 2009 STERLING GEE Threshold Audiogram (Pure Tone) Threshold Audiogram (Pure Tone) 26317 2009 [place] G[place] Audiogram (Screening) Audiogram (Screening) 66100 2009 RAMILA DAMIAN Non-Physician Phone Call To Patient/Provider Brief (5-10min) Non-Physician Phone Call To Patient/Provider Brief (5-10min) 28183 2009 JONEL BUSBY Culture, bacterial, urine; quantitative, sensitivity study 2008 BRISA AHUJA strep swab done DoD Threshold Audiogram (Pure Tone) Threshold Audiogram (Pure Tone) 15998 2008 JUANJO CLEARY Threshold Audiogram (Pure Tone) Threshold Audiogram (Pure Tone) 91864 2007 MARYANNE SANTOS Services Provided On An Emergency Basis In The Office 2006 JAIME LAIRD Services Provided On An Emergency Basis In The Office 2006 LATIA CARVAJAL Ophthalmological New Patient Start Intermediate Level Care Ophthalmological New Patient Start Intermediate Level Care 86738 2006 LATIA CARVAJAL Threshold Audiogram (Pure Tone) Threshold Audiogram (Pure Tone) 41916 2006 MARYANNE SANTOS [facility] Threshold Audiogram (Pure Tone) Threshold Audiogram (Pure Tone) 66316 KEKE SNYDER [facility] Social History Combined list of available smoking, tobacco, and other social history from 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 Social History Type Response Date Comment Sourc e Tobacco smoking status NHIS PA-TOBACCO USE FORMER CIGARETTES 03/02/2024 [facility] History of tobacco use PA-TOBACCO NEVER USED OTHER TYPE 03/02/2024 [facility] This section is an empty social history section. [facility] Assessment and Plan Combined list of future care activities from Department of Defense and Veterans Affairs facilities (e.g., assessment and plan notes, appointments, orders, and referrals). Additional future care activities may be listed in the Plan of Care section. Result Assessment and Plan Date Source Assessment and Plan No data available for this section 04/05/2024 [facility]acy Plan of Care List of future care activities from Department of Veterans Affairs facilities. Additional future care activities may be listed in the Assessment and Plan section. Date/Time Care Activity Care Activity Detail Facili ty 05/29/2024 AMBULATORY - MEDICINE AMBULATORY - MEDICI NE [facility] 03/16/2024 Consult Order [facility] Cons Plug Sorter's Choice [facility] Functional Status Combined list of recent functional and cognitive assessments recorded at Department of Defense and Veterans Affairs ([place] Functional [place] Measurement (FIM) Scale: 1 = Total Assistance (Subject = 0% +), 2 = Maximal Assistance (Subject = 25% +), 3 = Moderate Assistance (Subject = 50% +), 4 = Minimal Assistance (Subject = 75% +), 5 = Supervision, 6 = Modified [place] (Device), 7 = Complete [place] (Timely, Safely). Assessment Date/Time Source Assessment Type Assessment Skill Assessment Score Assessment Details No data available for this section
--- OUTSIDE RECORDS SUMMARY | 2024-04-05 11:43 | XMS_ITS | Encounter Summary ---
Author Organization [facility] Address [address] [place] [address] Care Team Providers Care Retail Sales Teammate Name Role Phone Elmo Moreno NP Primary Care Provider Encounter Details Date Type Department Care Team ([facility] Contact Info) Description 03/30/2024 Telephone Neurosurgery [facility] [address] [place] [phone] Mally John PA [address], [address] [place] [address] Social History Tobacco Use Types Packs/Day Years [...] on filedocumented in this encounter Care Teams Retail Sales Teammate Relationship Specialty Start Date End Date Elmo Moreno NP [address] [place], [place] PCP - General 05/15/22 documented as of this encounter
--- OUTSIDE RECORDS SUMMARY | 2024-04-05 11:43 | XMS_ITS | Clinical Summary ---
Author Organization [facility] Facility Address [address] [place] [address] Care Team Providers Care Marketing Operations Coordinator Name Role Phone Unavailable Primary Care Provider [...]
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
--- NOTE | 2024-04-13 12:21 | MHC.SHP ---
Pre-Procedural Eval Section A - 24 Hr Update-Section A only Date of Service: 04/14/24 The patient is an INPATIENT: No Changes since office visit: No Cold of Flu in the past 2 weeks, No New Medical Problems, No Changes in Medication and No Patient answered all questions Section B - Complete if H&P > 30 days Chief Complaint: Umbilical hernia with obstruction, without gangren Allergies: Allergies Allergy/AdvReac Type Severity Reaction Status Date / Time No Known Allergies Allergy Verified 04/13/24 09:33 [No Known Allergies*] Review of Systems Sugical H&P ROS: Negative: Constitution, Cardiovascular, Respiratory, Neurological, Psychiatric, Hem-Onc, Allergic/Immunologic, Gastrointestinal, Genitourinary, Musculoskeletal, Integumentary, Endocrine and Eyes/Ears/Nose/Throat Exam Surgical H&P Exam: Normal: HEENT, Normal: Heart, Normal: Lungs, Normal: Extremities, Normal: Abdomen, Normal: Skin and Normal: Neurological Plan I have reviewed the history and physical and performed a pertinent physical examination on my patient. No changes have occurred unless specified. Time Spent With Patient Time: Total time managing care of this patient today ____ minutes.
[2024-04-14 07:25] VITALS: BP 171/103; PULSE 95; RESP 14; TEMP 36.8; O2SAT 94; BMI 35.1
[2024-04-14] MEDS: Lactated Ringers 1,000 ML 100 ML IVCONT (07:45)
[2024-04-14 09:38] VITALS: BP 135/86; PULSE 100; RESP 18; TEMP 36.8; O2SAT 97
[2024-04-14 09:43] VITALS: BP 128/83; PULSE 90; RESP 18; O2SAT 97
--- NOTE | 2024-04-14 09:44 | P.OP_ITS ---
Operative Note Operative Note Date of Service: 04/14/24 Narrative: Preoperative diagnosis: [] Symptomatic incarcerated umbilical hernia Postop diagnosis: [] The same Procedure [] open umbilical herniorrhaphy with Bard mesh Surgeon: [] Navarro Tabulating Machine Mechanic: [] Spencer Type of Anesthesia: [] LMA Indication for surgery: [] Roughly 2 cm incarcerated umbilical hernia with omental contents. Corpulent abdomen Findings: Patient brought to the operating room, placed on operative table supine position, after an adequate level of LMA general anesthesia was induced, the patient's abdomen was prepped and draped in usual sterile fashion using a supraumbilical curvilinear incision, this carried down through skin, subcutaneous tissue, where hernia sac was identified, dissected off the posterior aspect of the umbilicus, and dissected down through the fascia. Sac was opened were incarcerated omental contents were partially amputated using Bovie. Sac was also amputated using Bovie. Fascia margins were circumferentially cleared. An appropriately sized Bard mesh was placed in this defect, and the superficial layer of the mesh was circumferentially sutured to the surrounding fascia using interrupted 0 Ethibond sutures . Wound was irrigated, secured hemostasis, and closed in the following manner; posterior aspect of the umbilicus was tacked to the wound floor using interrupted 3-0 Vicryl sutures. Skin was closed using interrupted inverted dermal 3-0 Vicryl sutures followed by Steri-Strips and sterile dressings. Wound was infiltrated at the beginning and at the end with 0.5% Marcaine/1% lidocaine. Sponge, needle, and instrument counts reported correct. Patient tolerated the procedure well and emerged from anesthesia stable condition. EBL minimal
[2024-04-14 09:48] VITALS: BP 131/82; PULSE 86; RESP 17; O2SAT 97
[2024-04-14 09:55] VITALS: BP 135/89; PULSE 91; RESP 17; O2SAT 97
== END 2024-04-14 10:58 | disposition home or self-care (01) ==
PROVIDERS: PCP Nurse Practitioner Family; Visit Provider Surgery
PROC: (CPT 49592; principal; 2024-04-14 08:40)
DX: K42.0 Umbilical hernia with obstruction, without gangrene (principal); R10.33 Periumbilical pain; K21.9 Gastro-esophageal reflux disease without esophagitis; X50.0XXA Overexertion from strenuous movement or load, initial encounter; X50.3XXA Overexertion from repetitive movements, initial encounter; Y93.89 Activity, other specified; Y92.69 Other specified industrial and construction area as the place of occurrence of the external cause; Y99.8 Other external cause status; I12.9 Hypertensive chronic kidney disease with stage 1 through stage 4 chronic kidney disease, or unspecified chronic kidney disease; N18.9 Chronic kidney disease, unspecified; N20.0 Calculus of kidney; N40.0 Benign prostatic hyperplasia without lower urinary tract symptoms; E29.1 Testicular hypofunction; G47.30 Sleep apnea, unspecified; F43.10 Post-traumatic stress disorder, unspecified; F41.8 Other specified anxiety disorders; Z79.899 Other long term (current) drug therapy; Z87.891 Personal history of nicotine dependence
CPT/HCPCS: 49592; 88304; C1781; J0690; J1100; J1885; J2003; J2250; J2405; J2704; J2710; J2795; J3010

== ENCOUNTER → 2024-04-14 07:00 | Outpatient (BNV) | payer OTHER, SELFPAY | PROVIDERS: PCP Nurse Practitioner Family; Visit Provider Surgery | DX: K42.0 Umbilical hernia with obstruction, without gangrene (principal) | CPT/HCPCS: 49592 ==

== ENCOUNTER → 2024-04-24 07:19 | Outpatient (BNV) | payer OTHER, SELFPAY | PROVIDERS: PCP Nurse Practitioner Family; Visit Provider Radiology Diagnostic Radiology | DX: S46.002D Unspecified injury of muscle(s) and tendon(s) of the rotator cuff of left shoulder, subsequent encounter (principal) | CPT/HCPCS: 73221 ==

== ENCOUNTER 2024-04-24 07:25 | Outpatient (REF) | payer OTHER, SELFPAY ==
--- NOTE | ~2024-04-24 | MR_ITS ---
CLINICAL HISTORY: S46.009A - Unspecified injury of muscle(s) and tendon(s) of the rotator ... MR left shoulder without gadolinium Comparison: DX - XR SHOULDER LT MIN 2V - 04/11/24 13:40 EST Findings: No acute fracture or pathologic bone lesion. Mild periarticular osteophyte formation at the acromioclavicular and glenohumeral joints. Type II acromion. No joint effusion. The supraspinatus, infraspinatus, subscapularis, and teres minor tendons are intact. No tears of the long head of biceps tendon. There is mild T2 signal elevation within the mid posterior labrum as well as undercutting. IMPRESSION: 1. No rotator cuff tear. 2. Posterior labral tearing. 3. Mild acromioclavicular and glenohumeral joint osteoarthritis. This document has been electronically signed by: Jaspreet Horton MD on 04/25/2024 15:42:50
--- OUTSIDE RECORDS SUMMARY | 2024-04-24 07:28 | XMS_ITS ---
Author Name [facility] Organization [facility] Address [address] [place] [address] Care Team Providers Care Biomass Plant Technician Name Role Phone GERARD CARABALLO Primary Care Provider Unavail able Insurance Providers: [...] PRESCRIPT ION RX Feb 15, 2022 THPRX [id number] GUY MARY PATIENT [facility] HARVEY Gutierrez June 22, 2023 [id number] USMANGUY GARCIAM PATIENT Selected Encounter This section includes the information on record at [place] for the Encounter. Date/Time Encounter Type Encounter Description Reason Pro vider Source Mar 27, 2024 03:57 PM Outpatient Encounter ADMIN PAT ACTIVTIES (MASNONCT) IHE Encounter Template Text not used by [place] Plan of Treatment: Future Appointments (+ 6 months) and Future Tests (+/- 45 days) The Plan of Treatment section includes future care activities for the patient from all [place] treatmentfacilities. This section includes future appointments and future orders which are active, pending or scheduled. Future Appointments This section includes appointments that were scheduled to occur 6 months from the date of the Encounter, up to a maximum of 20 appointments. The data comes from all [place] treatment facilities. Appointment Date/Time Appointment Type Appointme nt Facility Name May 22, 2024 02:00 PM [place]ULAT[facility] - [place]ICINE [place] [facility] [place] May 29, 2024 10:30 AM [facility]ORY - MEDICINE [facility] Active, Pending, and Scheduled Orders This section includes a listing of several types of active, pending, and scheduled orders, including clinic medications orders, diagnostic test orders, procedure orders and consult orders; where the start date of the order is 45 days before the date of the Encounter or 45 days after the date of theEncounter. The data comes from all [place] treatment facilities. Test Date/Time Test Type Test Details Facility Name Mar 16, 2024 10:01 AM Consult Order COMM[facility]ITY [facility]ARE-ORTHO GENERAL Cons Soft Work Wrapper Layer And Examiner's Choice [facility] Apr 09, 2024 07:35 AM Consult Order REHAB MEDI CINE/[facility] OUTPT Cons Soft Work Wrapper Layer And Examiner's [facility] Social History: Smoking Status (Most current) and Tobacco Use (All prior to encounter date) This section includes the most current, and the historical, smoking and tobacco- related health factors from the [place] facility where the Encounter took place. Current Smoking Status This section includes the most current smoking, or tobacco-related health factor, from the [place] facility where the Encounter took place. Date/Time Current Smoking Status Comment Lukasz parikh Mar 02, 2024 03:30 PM VA-TOBACCO USE FOR SUNG CIGARETTES [facility] Tobacco Use History This section includes a history of the smoking, or tobacco-related health factors, that were collected on or before the date of the Encounter. The data comes from the [place] facility where the Encounter took place. Date/Time Smoking Status/Tobacco Use Comment Farhan pulido Mar 02, 2024 03:30 PM VA-TOBACCO USE FOR SUNG CIGARETTES [facility] Encounter Notes: All associated encounter notes This section contains the clinical notes associated to the Encounter. Date/Time Encounter Note(s) Provider Source Apr 05, 2024 03:05 PM ADDENDUM: LOCAL TITLE: Addendum STANDARD TITLE: ADDENDUM DATE OF NOTE: APR 05, 2024@15:05:05 ENTRY DATE: APR 05, 2024@15:05:06 AUTHOR: GERARD CARABALLO COSIGNER: URGENCY: STATUS: COMPLETED Please obtain records from recent ortho visit for elbow AND recent urgent care visit at which he reported an umbilical hernia and would like a surgical consult from [place] to repair. I don't find in [facility] nor in new faxes. /abisai/ Gerard Caraballo PA-C STAFF PHYSICIAN DUPLICATOR PUNCH SET UP OPERATOR Signed: 04/05/2024 15:06 Receipt Acknowledged By: 04/06/2024 11:17 /abisai/ JAC MEYERS RN REGISTERED NURSE === --- Original Document --- 03/27/24 CCC: SCHEDULING ADMINISTRATION: Patient Demographics Patient Name: GERARD MARY Patient Primary Phone: [phone] Patient Primary [address]: [address] [place] [address] Patient : 1980 Patient Age: 43 Call Back Number: [phone] Caller/Recipient Relation to Patient: Self Caller Name: GERARD MARY Administrative Administrative Note Reason: Other Administrative Note Comments: requesting a new consult for [place] [facility] as he would like a second opinion. [place] can be reached at [phone] IMPORTANT: This note was created by [facility] Clinical Contact Center staff. Please do not alert the staff member by adding them as a signer for future communications. Alerts are not monitored by this user. /abisai/ RICHARD COELLO MSA Signed: 03/27/2024 15:57 Receipt Acknowledged By: 03/29/2024 09:29 /abisai/ JAC MEYERS RN REGISTERED NURSE 03/29/2024 09:31 /abisai/ ALEXANDER HOWARD LPN 03/29/2024 ADDENDUM STATUS: COMPLETED Forwarding request to Provider /anne-marie MEYERS RN REGISTERED NURSE Signed: 03/29/2024 07:51 Receipt Acknowledged By: * AWAITING SIGNATURE * GERARD CARABALLO 04/05/2024 ADDENDUM STATUS: COMPLETED Requested notes. /abisai/ JAC MEYERS RN REGISTERED NURSE Signed: 04/05/2024 16:08 GERARD CARABALLO [facility] Mar 29, 2024 07:51 AM ADDENDUM: LOCAL TITLE: Addendum STANDARD TITLE: ADDENDUM DATE OF NOTE: MAR 29, 2024@07:51:33 ENTRY DATE: MAR 29, 2024@07:51:34 AUTHOR: JAC MEYERS COSIGNER: URGENCY: STATUS: COMPLETED Forwarding request to Provider /abisai/ JAC MEYERS RN REGISTERED NURSE Signed: 03/29/2024 07:51 Receipt Acknowledged By: 04/09/2024 07:34 /abisai/ Gerard Caraballo PA-C STAFF PHYSICIAN DUPLICATOR PUNCH SET UP OPERATOR === --- Original Document --- 03/27/24 CCC: SCHEDULING ADMINISTRATION: Patient Demographics Patient Name: GERARD MARY Patient Primary Phone: [phone] Patient Primary Address: [address] [place] [address] Patient : 1980 Patient Age: 43 Call Back Number: [phone] Caller/Recipient Relation to Patient: Self Caller Name: GERARD MARY Administrative Administrative Note Reason: Other Administrative Note Comments: requesting a new consult for [place] [facility] as he would like a second opinion. can be reached at [phone] IMPORTANT: This note was created by [facility] Clinical Contact Center staff. Please do not alert the staff member by adding them as a signer for future communications. Alerts are not monitored by this user. /abisai/ RICHARD COELLO MSA Signed: 03/27/2024 15:57 Receipt Acknowledged By: 03/29/2024 09:29 /abisai/ JAC MEYERS RN REGISTERED NURSE 03/29/2024 09:31 /abisai/ ALEXANDER HOWARD LPN ALEXANDER HOWARD LPN 04/05/2024 ADDENDUM STATUS: COMPLETED Please obtain records from recent ortho visit for elbow AND recent urgent care visit at which he reported an umbilical hernia and would like a surgical consult from [place] to repair. I don't find in [facility] nor in new faxes. /abisai/ Gerard Caraballo PA-C STAFF PHYSICIAN DUPLICATOR PUNCH SET UP OPERATOR Signed: 04/05/2024 15:06 Receipt Acknowledged By: 04/06/2024 11:17 /abisai/ JAC MEYERS RN REGISTERED NURSE 04/05/2024 ADDENDUM STATUS: COMPLETED Requested notes. /abisai/ JAC MEYERS RN REGISTERED NURSE Signed: 04/05/2024 16:08 JAC MEYERS [place] [facility] [place] [facility] Mar 27, 2024 03:57 PM ADMINISTRATIVE NOTE: LOCAL TITLE: CCC: SCHEDULING ADMINISTRATION STANDARD TITLE: ADMINISTRATIVE NOTE DATE OF NOTE: MAR 27, 2024@15:57:19 ENTRY DATE: MAR 27, 2024@15:57:19 AUTHOR: RICHARD COELLO COSIGNER: URGENCY: STATUS: COMPLETED CCC: SCHEDULING ADMINISTRATION Has ADDENDA Patient Demographics Patient Name: GERARD MARY Patient Primary Phone: [phone] Patient Primary Address: [address] [place] [address] Patient : 1980 Patient Age: 43 Call Back Number: [phone] Caller/Recipient Relation to Patient: Self Caller Name: GERARD MARY Administrative Administrative Note Reason: Other Administrative Note Comments: requesting a new consult for [place] [facility] as he would like a second opinion. can be reached at [phone] IMPORTANT: This note was created by [facility] Clinical Contact Center staff. Please do not alert the staff member by adding them as a signer for future communications. Alerts are not monitored by this user. /abisai/ RICHARD COELLO MSA Signed: 03/27/2024 15:57 Receipt Acknowledged By: 03/29/2024 09:29 /abisai/ JAC MEYERS RN REGISTERED NURSE 03/29/2024 09:31 /es/ ALEXANDER HWOARD LPN 03/29/2024 ADDENDUM STATUS: COMPLETED Forwarding request to Provider /abisai/ JAC MEYERS RN REGISTERED NURSE Signed: 03/29/2024 07:51 Receipt Acknowledged By: * AWAITING SIGNATURE * GERARD CARABALLO 04/05/2024 ADDENDUM STATUS: COMPLETED Please obtain records from recent ortho visit for elbow AND recent urgent care visit at which he reported an umbilical hernia and would like a surgical consult from [place] to repair. I don't find in [facility] nor in new faxes. /abisai/ Gerard Caraballo PA-C STAFF PHYSICIAN DUPLICATOR PUNCH SET UP OPERATOR Signed: 04/05/2024 15:06 Receipt Acknowledged By: * AWAITING SIGNATURE * JAC MEYERS 04/05/2024 ADDENDUM STATUS: COMPLETED Requested notes. /abisai/ JAC MEYERS RN REGISTERED NURSE Signed: 04/05/2024 16:08 RICHARD COELLO [place] [facility]
--- OUTSIDE RECORDS SUMMARY | 2024-04-24 07:28 | XMS_ITS | Clinical Summary ---
Author Organization [facility] Address [address] [place] [address] Care Team Providers Care Program Aide Group Work Name Role Phone Elmo Moreno Primary Care Provider [phone] Allergies No known active allergies Medications Medication [...] Advance Directives For more information, please contact: [phone] Latest Code Status on File Code Status Date Activated Date Inactivated Comments Full Code 03/18/2020 12:11 PM 03/18/2020 9:28 PM This c ode status was ascertained in the following way: discussion with patient . Care Teams Program Aide Group Work Relationship Specialty Start Date End Date Elmo Moreno: [phone] [address] [facility] [place] [address] PCP - General Family Medicine 03/07/20
--- OUTSIDE RECORDS SUMMARY | 2024-04-24 07:28 | XMS_ITS | Encounter Summary ---
Author Organization [facility] Address [address] [place] [address] Care Team Providers Care Appliquer Zigzag Name Role Phone Elmo Moreno NP Primary Care Provider [phone] Reason for Referral * Imaging (Routine) - Closed Specialty Diagnoses / Procedures Referred By Contac t Referred To Contact Radiology Diagnoses Low back pain radiating to right leg Procedures MR Lumbar Spine wo Contrast Mally John PA [address] [place] [address] Phone: tel: fax: Radiology Department [address] Phone: tel: fax: Referral ID Status Reason Start Date Expiration Date Visits Re quested Visits Authorized [id number] Closed 03/20/2024 03/20/2025 1 1 Reason for Visit * Imaging (Routine) - Closed Specialty Diagnoses / Procedures Referred By Contac t Referred To Contact Radiology Diagnoses Low back pain radiating to right leg Procedures MR Lumbar Spine wo Contrast Mally John PA [address] [place] [address], [address] Phone: tel: fax: Radiology Department - [address] Phone: tel: fax: Referral ID Status Reason Start Date Expiration Date Visits Re quested Visits Authorized [id number] Closed 03/20/2024 03/20/2025 1 1 Encounter Details Date Type Department Care Team (Latest Contact Info) Description 03/27/2024 11:30 AM EST - 03/27/2024 11:59 PM EST Hospital Encounter Radiology Department - [address] [phone] Low back pain radiating to right leg [...] 25 gauge x 5/8 syringe BD Disp [place] 25G X 5/8 Misc USE DIRECTED WEEKLY [...] Care Team (Late st Contact Info) Description 04/28/2024 8:[address] [facility] Interventional Radiology [address] [place] [id number] documented as of this encounter Procedures Procedure [...] Signed Date: 03/27/2024 15:51 ET Workstation ID: [id number] Transcribed By: Self Edit Transcribed Date: 03/27/2024 [...] Signed Date: 03/27/2024 15:51 ET Workstation ID: [id number] Transcribed By: Self Edit Transcribed Date: 03/27/2024 15:44 ET Mally QUIÑONEZ IMG MRI PROCEDURES Final R esult documented in this encounter Visit Diagnoses Diagnosis Low back pain radiating to right leg Lumbago documented in this encounter Care Teams Appliquer Zigzag Relationship Specialty Start Date End Date Elmo Moreno NP [address] [facility] [place], [place] PCP - General 05/15/22 documented as of this encounter
--- OUTSIDE RECORDS SUMMARY | 2024-04-24 07:28 | XMS_ITS | Encounter Summary ---
Author Organization [facility] Address [address] [place] [address] Care Team Providers Care Machinist Linotype Name Role Phone Elmo Moreno NP Primary Care Provider Reason for Visit * Reason Onset Date Comments Appointment 04/10/2024 04/07/24 - Per Ab by - called patient to schedule SI Joint injection but patient decided to put everything on hold for now due to a possible hernia surgery that he's going to have. Encounter Details Date Type Department Care Team (Late Contact Info) Description 04/10/2024 Telephone Neurosurgery [facility] [address] [facility] [address] [place] [address] Malena Bergman [place] Appointment (04/07/24 [...] as of this encounter Plan of Treatment Upcoming Encounters Date Type Department Care Team (Late Contact Info) Description 04/28/2024 8:00 AM EDT Appointment [facility] Interventional Radiology [address] [place] [address] documented as of this encounter Visit Diagnoses Not on filedocumented in this encounter Care Teams Machinist Linotype Relationship Specialty Start Date End Date Elmo Moreno NP [address] [facility] [place] PCP - General 05/15/22 documented as of this encounter
--- OUTSIDE RECORDS SUMMARY | 2024-04-24 07:28 | XMS_ITS | Encounter Summary ---
Author Organization [facility] Address [address] [place] [address] Care Team Providers Care Burglar Alarm Inspector Name Role Phone Elmo Moreno NP Primary Care Provider [phone] Encounter Details Date Type Department Care Team ([facility] Contact Info) Description 03/30/2024 Telephone Neurosurgery [facility] [address] [facility] [address] [place] [phone] Mally John PA [address] [facility], [address] [place] [address] Social History Tobacco Use Types Packs/Day Years [...] Info) Description 04/28/2024 8:00 AM EDT Appointment [facility] Interventional Radiology [address] [place] [address] documented as of this encounter Visit Diagnoses Not on filedocumented in this encounter Care Teams Burglar Alarm Inspector Relationship Specialty Start Date End Date Elmo Moreno NP [address] [place], [place] PCP - General 05/15/22 documented as of this encounter
--- OUTSIDE RECORDS SUMMARY | 2024-04-24 07:28 | XMS_ITS | Clinical Summary ---
Author Organization [facility] Facility Address [address] [place] [address] Care Team Providers Care Inspector Casing Name Role Phone Unavailable Primary Care Provider [...]
--- OUTSIDE RECORDS SUMMARY | 2024-04-24 07:28 | XMS_ITS ---
Author Name [facility] Organization [facility] Address [address] [place] [address] Care Team Providers Care Draughtsman Name Role Phone ELENA CARABALLO Primary Care Provider Unavail able Insurance [...] PRESCRIPT ION RX Feb 15, 2022 THPRX [id number] GUY MARY PATIENT [employer] HARVEY Gutierrez June 22, 2023 [id number] USMANGUY GARCIAM PATIENT Selected Encounter This section includes the information on record at [place] for the Encounter. Date/Time Encounter Type Encounter Description Reason Pro vider Source Mar 29, 2024 10:15 AM Outpatient Encounter ADMIN PAT ACTIVTIES (MASNONCT) IHE Encounter Template Text not used by [place] Plan of Treatment: Future Appointments (+ 6 months) and Future Tests (+/- 45 days) The Plan of Treatment section includes future care activities for the patient from all [place] treatmentfacilities. This section includes future appointments and future orders which are active, pending or scheduled. Future Appointments This section includes appointments that were scheduled to occur 6 months from the date of the Encounter, up to a maximum of 20 appointments. The data comes from all [place] treatment facilities. Appointment Date/Time Appointment Type Appointme nt Facility Name May 22, 2024 02:00 PM AMBULATORY - [place]ICINE [place] [facility] [place] [facility] May 29, 2024 10:30 AM [facility]ATORY - MED[facility]INE [facility] Active, Pending, and Scheduled Orders This section includes a listing of several types of active, pending, and scheduled orders, including clinic medications orders, diagnostic test orders, procedure orders and consult orders; where the start date of the order is 45 days before the date of the Encounter or 45 days after the date of theEncounter. The data comes from all [place] treatment facilities. Test Date/Time Test Type Test Details Facility Name Mar 16, 2024 10:01 AM Consult Order COMM[facility]ITY [facility]ARE-ORTHO GENERAL Cons Census Clerk's Choice [facility] Apr 09, 2024 07:35 AM Consult Order REHAB MEDI CINE/[facility] OUTPT Cons Census Clerk's [facility] Social History: Smoking Status (Most current) and Tobacco Use (All prior to encounter date) This section includes the most current, and the historical, smoking and tobacco- related health factors from the [place] facility where the Encounter took place. Current Smoking Status This section includes the most current smoking, or tobacco-related health factor, from the [facility] facility where the Encounter took place. Date/Time Current Smoking Status Comment Lukasz parikh Mar 02, 2024 03:30 PM VA-TOBACCO USE FOR SUNG CIGARETTES [facility] Tobacco Use History This section includes a history of the smoking, or tobacco-related health factors, that were collected on or before the date of the Encounter. The data comes from the [place] facility where the Encounter took place. Date/Time Smoking Status/Tobacco Use Comment F acbrooke Mar 02, 2024 03:30 PM VA-TOBACCO USE FOR SUNG CIGARETTES [facility] Encounter Notes: All associated encounter notes This section contains the clinical notes associated to the Encounter. Date/Time Encounter Note(s) Provider Source Apr 10, 2024 02:26 PM ADDENDUM: LOCAL TITLE: Addendum STANDARD TITLE: ADDENDUM DATE OF NOTE: APR 10, 2024@14:26 ENTRY DATE: APR 10, 2024@14:26:01 AUTHOR: JASON LYNCH EXP COSIGNER: URGENCY: STATUS: COMPLETED Websphere Process Server Developer spoke with re: orthopedic consult. He states his abdominal hernia surgery is 04/14/24. He will reach out to surgeon's office to let them know [place] primary care will be requesting information for CC gen surg consult. /es/ JASON LYNCH RN REFERRAL COORDINATION TEAM Signed: 04/10/2024 14:27 Receipt Acknowledged By: 04/10/2024 15:39 /es/ LEESA DERAS, MSN, RN, CNL PRIMARY CARE TEAM NURSE for JAC MEYERS 04/10/2024 17:45 /es/ Elena Caraballo PA-C STAFF PHYSICIAN STAINLESS STEEL FINISHER === --- Original Document --- 03/29/24 CCC: SCHEDULING ADMINISTRATION: Patient Demographics Patient Name: ELENA MARY Patient Primary Phone: [phone] Patient Primary [address]: [address] [place] [address] Patient : 1980 Patient Age: 43 Call Back Number: [phone] Caller/Recipient Relation to Patient: Self Caller Name: ELENA MARY Administrative Administrative Note Reason: Other Administrative Note Comments: pt is asking for a call in ref to hernia surgery please call to discuss IMPORTANT: This note was created by [facility] Contact [facility] staff. Please do not alert the staff member by adding them as a signer for future communications. Alerts are not monitored by this user. /es/ CRISTI FERNANDEZ 1 CCC AMSA Signed: 03/29/2024 10:15 Receipt Acknowledged By: 03/29/2024 11:09 /es/ JAC MEYERS RN REGISTERED NURSE 03/29/2024 10:52 /es/ ALEXANDER HOWARD LPN 03/29/2024 ADDENDUM STATUS: COMPLETED states went to Urgent care [address] [place] was told he has an umbilical Hernia denies problems with moving bowels nausea or vomiting, states has pain with pulling lifting etc. Was seen in urgent care by Dr Navarro Garcia who stated needs surgical repair is awaiting scheduled date, would like surgical consult from [facility]. Will obtain records from and Dr Garcia's office /abisai/ ALEXANDER HOWARD LPN Signed: 03/29/2024 10:51 Receipt Acknowledged By: 03/29/2024 14:03 /es/ JAC MEYERS RN REGISTERED NURSE 04/09/2024 09:11 /abisai/ Elena Caraballo PA-C STAFF PHYSICIAN STAINLESS STEEL FINISHER 04/09/2024 ADDENDUM STATUS: COMPLETED Please re=request records as above for hernia and ortho, different sites. /abisai/ Elena Caraballo PA-C STAFF PHYSICIAN STAINLESS STEEL FINISHER Signed: 04/09/2024 09:12 Receipt Acknowledged By: * AWAITING SIGNATURE * ALEXANDER HOWARD ROBIN [place] [facility] [place] [facility] Apr 09, 2024 09:12 AM ADDENDUM: LOCAL TITLE: Addendum STANDARD TITLE: ADDENDUM DATE OF NOTE: APR 09, 2024@09:12:08 ENTRY DATE: APR 09, 2024@09:12:09 AUTHOR: ELENA CARABALLO COSIGNER: URGENCY: STATUS: COMPLETED Please re=request records as above for hernia and ortho, different sites. /abisai/ Elena Caraballo PA-C STAFF PHYSICIAN STAINLESS STEEL FINISHER Signed: 04/09/2024 09:12 Receipt Acknowledged By: 04/11/2024 08:56 /abisai/ ALEXANDER HOWARD LPN === --- Original Document --- 03/29/24 CCC: SCHEDULING ADMINISTRATION: Patient Demographics Patient Name: ELENA MARY Patient Primary Phone: [phone] Patient Primary Address: [address] [place] [address] Patient : 1980 Patient Age: 43 Call Back Number: [phone] Caller/Recipient Relation to Patient: Self Caller Name: ELENA MARY Administrative Administrative Note Reason: Other Administrative Note Comments: pt is asking for a call in ref to hernia surgery please call to discuss IMPORTANT: This note was created by [facility] Contact [facility] staff. Please do not alert the staff member by adding them as a signer for future communications. Alerts are not monitored by this user. /es/ CRISTI GANNON VISEvangelina 1 [facility] AMSA Signed: 03/29/2024 10:15 Receipt Acknowledged By: 03/29/2024 11:09 /es/ JAC MEYERS RN REGISTERED NURSE 03/29/2024 10:52 /es/ ALEXANDER HOWARD LPN 03/29/2024 ADDENDUM STATUS: COMPLETED [place] states went to Urgent care on [address] in [facility] was told he has an umbilical Hernia denies problems with moving bowels nausea or vomiting, states has pain with pulling lifting etc. Was seen in urgent care by Dr Navarro Garcia who stated needs surgical repair is awaiting scheduled date, would like surgical consult from [facility]. Will obtain records from and Dr Garcia's office /es/ ALEXANDER HOWARD LPN Signed: 03/29/2024 10:51 Receipt Acknowledged By: 03/29/2024 14:03 /es/ JAC MEYERS RN REGISTERED NURSE 04/09/2024 09:11 /es/ Elena Caraballo PA-C STAFF PHYSICIAN STAINLESS STEEL FINISHER 04/10/2024 ADDENDUM STATUS: COMPLETED Websphere Process Server Developer spoke with re: orthopedic consult. He states his abdominal hernia surgery is 04/14/24. He will reach out to surgeon's office to let them know [place] primary care will be requesting information for [place] gen surg consult. /es/ JASNO LYNCH RN REFERRAL COORDINATION TEAM Signed: 04/10/2024 14:27 Receipt Acknowledged By: 04/10/2024 15:39 /es/ LEESA DERAS, MSN, RN, CNL PRIMARY CARE TEAM NURSE for JAC MEYERS 04/10/2024 17:45 /es/ Elena Caraballo PA-C STAFF PHYSICIAN STAINLESS STEEL FINISHER ELENA CARABALLO [place] [facility] [place] [facility] Mar 29, 2024 10:45 AM ADDENDUM: LOCAL TITLE: Addendum STANDARD TITLE: ADDENDUM DATE OF NOTE: MAR 29, 2024@10:45:58 ENTRY DATE: MAR 29, 2024@10:45:58 AUTHOR: ALEXANDER HOWARD EXP COSIGNER: URGENCY: STATUS: COMPLETED states went to Urgent care on [address] in [facility] was told he has an umbilical Hernia denies problems with moving bowels nausea or vomiting, states has pain with pulling lifting etc. Was seen in urgent care by Dr Navarro Garcia who stated needs surgical repair is awaiting scheduled date, would like surgical consult from [facility]. Will obtain records from and Dr Garcia's office /es/ ALEXANDER HOWARD LPN Signed: 03/29/2024 10:51 Receipt Acknowledged By: 03/29/2024 14:03 /es/ JAC MEYERS RN REGISTERED NURSE 04/09/2024 09:11 /es/ Elena Caraballo PA-C STAFF PHYSICIAN STAINLESS STEEL FINISHER === --- Original Document --- 03/29/24 CCC: SCHEDULING ADMINISTRATION: Patient Demographics Patient Name: ELENA MARY Patient Primary Phone: [phone] Patient Primary Address: [place] [address] Patient : 1980 Patient Age: 43 Call Back Number: [phone] Caller/Recipient Relation to Patient: Self Caller Name: ELENA MARY Administrative Administrative Note Reason: Other Administrative Note Comments: pt is asking for a call in ref to hernia surgery please call to discuss IMPORTANT: This note was created by [facility] staff. Please do not alert the staff member by adding them as a signer for future communications. Alerts are not monitored by this user. /abisai/ CRISTI FERNANDEZ 1 [facility] AMSA Signed: 03/29/2024 10:15 Receipt Acknowledged By: 03/29/2024 11:09 /abisai/ JAC MEYERS RN REGISTERED NURSE 03/29/2024 10:52 /es/ ALEXANDER BROWER LPN, LPN [place] [facility] [place] [facility] Mar 29, 2024 10:15 AM ADMINISTRATIVE NOTE: LOCAL TITLE: CCC: SCHEDULING ADMINISTRATION STANDARD TITLE: ADMINISTRATIVE NOTE DATE OF NOTE: MAR 29, 2024@10:15:16 ENTRY DATE: MAR 29, 2024@10:15:16 AUTHOR: CRISTI GANNON COSIGNER: URGENCY: STATUS: COMPLETED CCC: SCHEDULING ADMINISTRATION Has ADDENDA Patient Demographics Patient Name: ELENA MARY Patient Primary Phone: [phone] Patient Primary [address]: [address] [place] [address] Patient : 1980 Patient Age: 43 Call Back Number: [phone] Caller/Recipient Relation to Patient: Self Caller Name: ELENA MARY Administrative Administrative Note Reason: Other Administrative Note Comments: pt is asking for a call in ref to hernia surgery please call to discuss IMPORTANT: This note was created by [facility] staff. Please do not alert the staff member by adding them as a signer for future communications. Alerts are not monitored by this user. /absiai/ CRISTI FERNANDEZ 1 [facility] Signed: 03/29/2024 10:15 Receipt Acknowledged By: 03/29/2024 11:09 /abisai/ JAC MEYERS RN REGISTERED NURSE 03/29/2024 10:52 /es/ ALEXANDER HOWARD LPN 03/29/2024 ADDENDUM STATUS: COMPLETED [place] states went to Urgent care on [address] in [place] was told he has an umbilical Hernia denies problems with moving bowels nausea or vomiting, states has pain with pulling lifting etc. Was seen in urgent care by Dr Navarro Garcia who stated needs surgical repair is awaiting scheduled date, would like surgical consult from [facility]. Will obtain records from and Dr Garcia's office /abisai/ ALEXANDER HOWARD LPN Signed: 03/29/2024 10:51 Receipt Acknowledged By: 03/29/2024 14:03 /es/ JAC MEYERS, FRAN REGISTERED NURSE 04/09/2024 09:11 /abisai/ Elena Caraballo PA-C STAFF PHYSICIAN STAINLESS STEEL FINISHER 04/09/2024 ADDENDUM STATUS: COMPLETED Please re=request records as above for hernia and ortho, different sites. /abisai/ Elena Caraballo PA-C STAFF PHYSICIAN STAINLESS STEEL FINISHER Signed: 04/09/2024 09:12 Receipt Acknowledged By: 04/11/2024 08:56 /abisai/ LAEXANDER HOWADR LPN 04/10/2024 ADDENDUM STATUS: COMPLETED Websphere Process Server Developer spoke with re: orthopedic consult. He states his abdominal hernia surgery is 04/14/24. He will reach out to surgeon's office to let them know [place] primary care will be requesting information for [place] gen surg consult. /abisai/ JASON LYNCH RN REFERRAL COORDINATION TEAM Signed: 04/10/2024 14:27 Receipt Acknowledged By: 04/10/2024 15:39 /abisai/ LEESA DERAS, HERVE, RN, CNL PRIMARY CARE TEAM NURSE for JAC MEYERS 04/10/2024 17:45 /abisai/ Elena Caraballo PA-C STAFF PHYSICIAN STAINLESS STEEL FINISHER 04/11/2024 ADDENDUM STATUS: COMPLETED is scheduled for Hernia surgery 04/13/2024, is meeting with [facility] for a consult to have shoulder surgery today. Call placed to [facility] for records of last surgery, unable to contact staff member to request MR fax #. Instructed to send a copy of surgery to [facility] /abisai/ ALEXANDER HOWARD LPN Signed: 04/11/2024 08:59 CRISTI GANNON [facility]
--- OUTSIDE RECORDS SUMMARY | 2024-04-24 07:28 | XMS_ITS | Clinical Summary ---
Author Organization [address] [facility] Address [address] [place] [address] Phone Care Team Providers Care Red Hat Linux Engineer Name Role Phone Elmo Moreno NP Primary Care Provider Allergies No known active allergies Medications albuterol HFA (PROAIR HFA ; PROVENTIL HFA ; VENTOLIN HFA) 90 mcg/actuation inhaler INHALE 2 PUFFS BY MOUTH EVERY 6 HOURS NEEDED 2 Active syringe with needle, safety 1 mL 25 gauge x 5/8 syringe BD Disp [place] 25G X 5/8 Misc USE DIRECTED WEEKLY FOR TESTOSTERONE SUBCUTANEOUS INJECTION 3 Active syringe, disposable, 1 mL (BD LUER-SHRUTHI SYRINGE MISC) B-D SYRINGE LUER-SRHUTHI 1CC 1 ML Misc USE DIRECTED WITH TESTOSTERONE INJECTION WEEKLY 2 Active losartan-hydro CHLOROthiazide (HYZAAR) 100-12.5 mg per tablet Take 1 Tablet by mouth. 2 Active testosterone cypionate (DEPO-TESTOTER ONE) 200 mg/mL injection INJECT 0.4 ML SUBCUTANEOUSLY [...] by . 30 patch 1 5 Active Active Problems Problem Noted Date Diagnosed [...] Department Care Team Description 04/10/2024 Telephone Neurosurgery [facility] [address] [place] [address] Malena Bergman MA Appointment (04/07/24 - Per Sue - called patient to schedule SI Joint injection but patient decided to put everything on hold for now due to a possible hernia surgery that he's going to have. ) 03/30/2024 Telephone Neurosurgery [facility] [address] [phone] Mally John PA 03/27/2024 11:30 AM EST - 03/27/2024 11:59 PM EST Hospital Encounter Radiology Department - [address] [phone] Low back pain radiating to right leg Discharge Disposition: Home or Self Care 03/20/2024 10:15 AM EST Office Visit Neurosurgery [address] [phone] Mally John PA Sacroiliitis (CMS/HCC) (Primary Dx); Low back pain radiating to right leg 03/13/[address] [phone] [place], [place] from Last 3 Months Immunizations Name Administration [...] Info) Description 04/28/2024 8:00 AM EDT Appointment [facility] Interventional Radiology [address] [place] [address] Health Maintenance Due Date Last Done Comments [...] Signed Date: 03/27/2024 15:51 ET Workstation ID: [id number] Transcribed By: Self Edit Transcribed Date: 03/27/2024 [...] Signed Date: 03/27/2024 15:51 ET Workstation ID: [id number] Transcribed By: Self Edit Transcribed Date: 03/27/2024 15:44 ET us Mally QUIÑONEZ IMG MRI PROCEDURES Final R esult from Last 3 Months Insurance [employer] Care Teams Red Hat Linux Engineer Relationship Specialty Start Date End Date Elmo Moreno NP [address] [facility] [address] PCP - General 05/15/22
== END 2024-04-24 07:26 | disposition home or self-care (01) ==
LOC: HO.MRI 07:25
PROVIDERS: PCP Nurse Practitioner Family
DX: S46.002D Unspecified injury of muscle(s) and tendon(s) of the rotator cuff of left shoulder, subsequent encounter (principal)
CPT/HCPCS: 73221; 99212

== ENCOUNTER 2024-04-24 09:04 | Outpatient (AMB) | payer OTHER, SELFPAY ==
--- NOTE | 2024-04-24 09:09 | A.OFFVIS_ITS ---
Intake Visit Reasons: S/P umbilical hernia w/mesh Intake Note: Patient here s/p open umbilical herniorrhaphy with Bard mesh. Reports incision healing well. Patient c/o: tenderness along incision. Still taking rx pain meds at night to help with sleep. Human Resources Operations Coordinator Required: No Accompanied by: Self / Same As Patient Allergies No Known Allergies [No Known Allergies*] Allergy (Verified 04/24/24 09:10) HPI Comments Details: Patient was for follow-up status post umbilical hernia repair. He is doing well. He is tolerating a diet. Having regular bowel habits. He is increasing activity level. He has incisional discomfort which is improving. [facility] Medical History Tubular adenoma of colon GERD (gastroesophageal reflux disease) Anxiety with depression PTSD (post-traumatic stress disorder) Lumbar stenosis HTN (hypertension) Sleep apnea Hypogonadism in male BPH (benign prostatic hyperplasia) Renal calculi CKD (chronic kidney disease) Right foot pain Surgical History (Updated 04/24/24 @ 09:13 by Jose Briceño MD) Incarcerated umbilical hernia (04/14/24) Status post right rotator cuff repair Status post right foot surgery Family History Father No problems noted. Mother No problems noted. 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 Incision clean dry and intact healing well Assessment & Plan Assessment & Plan (1) Status post umbilical hernia repair, follow-up exam: Code(s): Z09 - Encounter for follow-up examination after completed treatment for conditions other than malignant neoplasm Category: Medical Plan Patient was been given local instructions, note regarding when to return to work, and will otherwise follow-up p.r.n.. All questions answered. Coding Level of Care Code Global (86192) Diagnoses Status post umbilical hernia repair, follow-up exam Z09
--- OUTSIDE RECORDS SUMMARY | 2024-04-24 09:33 | XMS_ITS | Continuity of Care Document ---
Author Name [facility] Organization [facility] Care Team Providers Care Welding Technician Name Role Phone [facility] Unavailable Unavailable Problems Combined list of problems from 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 It does not include entries that were removed or entered in error. Problem Status Onset Date Problem Type Date of Resolution Comments Source Other hammer toe(s) (acquired), right foot Active 1898 Condition DoD Anxiety (SCT [id number]) Active Condition [facility] Chronic back pain Active Condition [facility] Chronic kidney disease stage 3A Active Condition Mar 03 Entered By: EDITH ALEJANDRO Comment: Stage 3a chronic kidney disease 03/02/2021 [facility] Contact dermatitis Active Condition [facility] Degenerative Joint Disease of Shoulder Region (SCT [id number]) Active Condition [facility] Dermatophytosis Active Condition Mar 03, 2024 Entered By: EDITH ALEJANDRO Comment: Dermatophytosis tinea cruris [facility] Erectile Dysfunction (SCT [id number]) Active Condition [facility] GERD - Gastro-Esophageal Reflux Disease (SCT [id number]) Active Condition [facility] Gout Active Condition [facility] Hammer toe Active Condition Mar 03 Entered By: EDITH ALEJANDRO Comment: hammer toe(s) (acquired), right foot [facility] History of nicotine dependence Active Condition [facility] HTN - Hypertension (SCT [id number]) Active Condition [facility] Pain in Lumbar Spine (SCT [id number]) Active Condition [facility] Plantar fasciitis Active Condition 2024 Entered By: EDITH ALEJANDRO Comment: Plantar fasciitis left [facility] Polyp Colon (SCT [id number]) Active Condition [facility] Renal stone [...] Pt cleared for overseas PCS to [place]. [facility] Patient Counseling: Inquiry & Counseling Active Condition DoD Diagnosis: ICD-10-CM Z71.89 Other specified counseling Active Diagnosis [facility] Diagnosis: ICD-10-CM I10 Essential (primary) hypertension Active Diagnosis [facility] Medications Combined list of outpatient medications [...] g CANISTER Start Date: 12/07/20 Status: Ordered Repeat number: 1 Ordered 2021 No Facilit y Access amLODIPine 10 mg oral tablet amLODIPi ne 10 mg oral tablet Start Date: 09/11/20 Status: Ordered Repeat number: 1 Ordered 2021 No Facilit y Access amLODIPine 10 mg oral tablet amLODIPi ne 10 mg oral tablet Start Date: 06/22/20 Status: Ordered Repeat number: 1 Ordered 2021 No Facilit y Access amLODIPine 10 mg oral tablet amLODIPi ne 10 mg oral tablet Start Date: 05/21/20 Status: Ordered Repeat number: 1 Ordered 2021 No Facilit y Access amLODIPine 5 mg oral tablet amLODIPi ne 5 mg oral tablet Start Date: 07/24/20 Status: Ordered Repeat number: 1 Ordered 2021 No Facilit y Access amLODIPine 5 mg oral tablet amLODIPi ne 5 mg oral tablet Start Date: 04/22/20 Status: Ordered Repeat number: 1 Ordered 2021 No Facilit y Access amLODIPine 5 mg oral tablet amLODIPi ne 5 mg oral tablet Start Date: 03/25/20 Status: Ordered Repeat number: 1 Ordered 2021 No Facilit y Access azithromyci n 250 mg oral tablet 0 total refill(s ) Ordered 2021 No Facilit y Access clomiPHENE 50 mg oral tablet clomiPHE NE 50 mg oral tablet Start Date: 11/11/20 Status: Ordered Repeat number: 1 Ordered 2021 No Facilit y Access clomiPHENE 50 mg oral tablet clomiPHE NE 50 mg oral tablet Start Date: 11/13/20 Status: Ordered Repeat number: 1 Ordered 2021 No Facilit y Access clomiPHENE 50 mg oral tablet clomiPHE NE 50 mg oral tablet Start Date: 07/04/20 Status: Ordered Repeat number: 1 Ordered 2021 No Facilit y Access clomiPHENE 50 mg oral tablet clomiPHE NE 50 mg oral tablet Start Date: 06/13/20 Status: Ordered Repeat number: 1 Ordered 2021 No Facilit y Access clomiPHENE 50 mg oral tablet clomiPHE NE 50 mg oral tablet Start Date: 05/15/20 Status: Ordered Repeat number: 1 Ordered 2021 No Facilit y Access codeine-gua ifenesin 10 mg-100 mg/5 mL oral syrup codeine- guaifene sin 10 mg-100 mg/5 mL oral syrup Start Date: 05/27/20 Status: Ordered Repeat number: 1 Ordered 2021 No Facilit y Access cyclobenzap rine 10 mg oral tablet cycloben zaprine 10 mg oral tablet Start Date: 04/17/21 Status: Ordered Repeat number: 1 Ordered 2021 No Facilit y Access FAMOTIDINE (FAMOTIDINE ), 20MG, TABLET, ORAL, IVAX PHARMACEUT, 100 ea. BOTTLE Active [id number] 2023 90 Pharmac y Data Transac tion Service Facilit y hydroCHLORO thiazide 12.5 mg oral tablet hydroCHL OROthiaz magda 12.5 mg oral tablet Start Date: 10/08/20 Status: Ordered Repeat number: 1 Ordered 2021 No Facilit y Access hydroCHLORO thiazide 12.5 mg oral tablet hydroCHL OROthiaz magda 12.5 mg oral tablet Start Date: 11/12/20 Status: Ordered Repeat number: 1 Ordered 2021 No Facilit y Access hydroCHLORO thiazide 12.5 mg oral tablet hydroCHL OROthiaz magda 12.5 mg oral tablet Start Date: 07/22/20 Status: Ordered Repeat number: 1 Ordered 2021 No Facilit y Access hydroCHLORO thiazide 12.5 mg oral tablet hydroCHL OROthiaz magda 12.5 mg oral tablet Start Date: 05/04/20 Status: Ordered Repeat number: 1 Ordered 2021 No Facilit y Access hydroCHLORO thiazide 12.5 mg oral tablet hydroCHL OROthiaz magda 12.5 mg oral tablet Start Date: 04/09/20 Status: Ordered Repeat number: 1 Ordered 2021 No Facilit y Access HYDROCHLORO THIAZIDE 25MG/LOSART AN POTASSIUM 100MG TAB TAKE ONE TABLET BY MOUTH ORAL ACTIVE GERARD RODRIGUEZ 2024 [facility] ibuprofen 600 mg oral tablet ibuprofe n 600 mg oral tablet Start Date: 10/29/20 Status: Ordered Repeat number: 1 Ordered 2021 No Facilit y Access ibuprofen 600 mg oral tablet ibuprofe n 600 mg oral tablet Start Date: 10/08/20 Status: Ordered Repeat number: 1 Ordered 2021 No Facilit y Access ibuprofen 600 mg oral tablet ibuprofe n 600 mg oral tablet Start Date: 09/15/20 Status: Ordered Repeat number: 1 Ordered 2021 No Facilit y Access lidocaine 5% topical film lidocain e 5% topical film Start Date: 05/27/20 Status: Ordered Repeat number: 1 Ordered 2021 No Facilit y Access lidocaine 5% topical film lidocain e 5% topical film Start Date: 09/11/20 Status: Ordered Repeat number: 1 Ordered 2021 No Facilit y Access LORAZEPAM (lorazepam) , 0.5 MG, TABLET, ORAL, AUROBINDO PHARM, 500 ea. BOTTLE Active [id number] 2023 30 Pharmac y Data Transac tion Service Facilit y LORAZEPAM (lorazepam) , 0.5 MG, TABLET, ORAL, AUROBINDO PHARM, 500 ea. BOTTLE Active [id number] 2023 30 Pharmac y Data Transac tion Service Facilit y LORAZEPAM 0.5MG TAB TAKE ONE TABLET BY MOUTH ORAL ACTIVE GERARD RODRIGUEZ 2024 [facility] losartan-hy droCHLOROth iazide 100mg-12.5m g oral tablet losartan -hydroCH LOROthia zide 100mg-12 .5mg oral tablet Start Date: 04/04/21 Status: Ordered Repeat number: 1 Ordered 2021 No Facilit y Access losartan-hy droCHLOROth iazide 100mg-12.5m g oral tablet losartan -hydroCH LOROthia zide 100mg-12 .5mg oral tablet Start Date: 01/07/21 Status: Ordered Repeat number: 1 Ordered 2021 No Facilit y Access losartan-hy droCHLOROth iazide 50mg-12.5mg oral tablet losartan -hydroCH LOROthia zide 50mg-12. 5mg oral tablet Start Date: 01/03/21 Status: Ordered Repeat number: 1 Ordered 2021 No Facilit y Access losartan-hy droCHLOROth iazide 50mg-12.5mg oral tablet losartan -hydroCH LOROthia zide 50mg-12. 5mg oral tablet Start Date: 12/09/20 Status: Ordered Repeat number: 1 Ordered 2021 No Facilit y Access LUER-SHRUTHI SYRINGE (syringe, disposable, 1 mL), DISP SYRIN, MISCELL, NAVEED DICKINSO, [address] [id number] : 2023 0 Pharmac y Data Transac tion Service Facilit y meloxicam 15 mg oral tablet meloxica m 15 mg oral tablet Start Date: 04/17/21 Status: Ordered Repeat number: 1 Ordered 2021 No Facilit y Access meloxicam 15 mg oral tablet meloxica m 15 mg oral tablet Start Date: 12/08/20 Status: Ordered Repeat number: 1 Ordered 2021 No Facilit y Access NAPROXEN (NAPROXEN), 500MG, TABLET, ORAL, GLENMARK PHARMA, 500 ea. BOTTLE Active [id number] 2023 60 Pharmac y Data Transac tion Service Facilit y NAPROXEN (NAPROXEN), 500MG, TABLET, ORAL, GLENMARK PHARMA, 500 ea. BOTTLE Active [id number] 2023 60 Pharmac y Data Transac tion Service Facilit y NAPROXEN 500MG TAB TAKE ONE TABLET BY MOUTH ORAL ACTIVE GERARD RODRIGUEZ 2024 [facility] OMEPRAZOLE (omeprazole ), 20 MG, CAPSULE DR ORAL, [place], 1000 ea. BOTTLE Active [id number] 2023 90 Pharmac y Data Transac tion Service Facilit y omeprazole 20 mg oral delayed release capsule omeprazo le 20 mg oral delayed release capsule Start Date: 04/16/21 Status: Ordered Repeat number: 1 Ordered 2021 No Facilit y Access omeprazole 20 mg oral delayed release capsule omeprazo le 20 mg oral delayed release capsule Start Date: 12/09/20 Status: Ordered Repeat number: 1 Ordered 2021 No Facilit y Access omeprazole 20 mg oral delayed release capsule omeprazo le 20 mg oral delayed release capsule Start Date: 02/14/21 Status: Ordered Repeat number: 1 Ordered 2021 No Facilit y Access omeprazole 20 mg oral delayed release capsule omeprazo le 20 mg oral delayed release capsule Start Date: 02/14/21 Status: Ordered Repeat number: 1 Ordered 2021 No Facilit y Access OMEPRAZOLE 20MG CAP,EC TAKE 1 CAPSULE BY MOUTH EVERY MORNING 30 MINUTES BEFORE BREAKFAS T ORAL ACTIVE GERARD RODRIGUEZ 2024 [facility] oxyCODONE 5 mg oral tablet oxyCODON E 5 mg oral tablet Start Date: 12/09/20 Status: Ordered Repeat number: 1 Ordered 2021 No Facilit y Access OXYCODONE-A CETAMINOPHE N (OXYCODONE HCL/ACETAMI NOPHEN), 5MG-325MG, TABLET, ORAL, MALLINKRT PHARM, 50 OXYCODON E-ACETAM INOPHEN (OXYCODO NE HCL/ACET AMINOPHE N), 5MG-325M G, TABLET, ORAL, MALLINKR T PHARM, 50 Start Date: 03/19/20 Status: Ordered Repeat number: 1 Ordered 2021 No Facilit y Access OXYCODONE-A CETAMINOPHE N (OXYCODONE HCL/ACETAMI NOPHEN), 5MG-325MG, TABLET, ORAL, MALLINKRT PHARM, 50 OXYCODON E-ACETAM INOPHEN (OXYCODO NE HCL/ACET AMINOPHE N), 5MG-325M G, TABLET, ORAL, MALLINKR T PHARM, 50 Start Date: 03/19/20 Status: Ordered Repeat number: 1 Ordered 2021 No Facilit y Access predniSONE 20 mg oral tablet predniSO NE 20 mg oral tablet Start Date: 05/21/20 Status: Ordered Repeat number: 1 Ordered 2021 No Facilit y Access predniSONE 50 mg oral tablet predniSO NE 50 mg oral tablet Start Date: 12/09/20 Status: Ordered Repeat number: 1 Ordered 2021 No Facilit y Access REGULAR BEVEL NEEDLES (needles, disposable) , 25GX5/8 , DIS NEEDLE, MISCELL, BD MEDICAL SURG, [address] [id number] : 2023 0 Pharmac y Data Transac tion Service Facilit y TESTOSTERON E CYPIONATE (testostero ne cypionate), 200 MG/ML, VIAL, INTRAMUSC, PERRIGO/PAD AGIS, 1 ml TESTOSTE XIAO CYPIONAT E (testost erone cypionat e), 200 MG/ML, VIAL, INTRAMUS C, PERRIGO/ PADAGIS, 1 ml Start Date: 03/25/21 Status: Ordered Repeat number: 1 Ordered 2021 No Facilit y Access TESTOSTERON E CYPIONATE (testostero ne cypionate), 200 MG/ML, VIAL, INTRAMUSC, PERRIGO/PAD AGIS, 1 ml TESTOSTE XIAO CYPIONAT E (testost erone cypionat e), 200 MG/ML, VIAL, INTRAMUS C, PERRIGO/ PADAGIS, 1 ml Start Date: 04/12/21 Status: Ordered Repeat number: 1 Ordered 2021 No Facilit y Access TESTOSTERON E CYPIONATE 200MG/ML INJ,1ML (IN OIL) INJECT 1ML (200MG) INTRAMUS CULARLY INTRAM USCULA R ACTIVE OTISSILVERIOGERARD Farhan 2024 [facility] tiZANidine 2 mg oral tablet tiZANidi ne 2 mg oral tablet Start Date: 05/21/20 Status: Ordered Repeat number: 1 Ordered 2021 No Facilit y Access traMADol 50 mg oral tablet traMADol 50 mg oral tablet Start Date: 09/26/20 Status: Ordered Repeat number: 1 Ordered 2021 No Facilit y Access Allergies, Adverse Reactions, [...] Site Reaction Lot Number CVX Code Drug Android Architect Status Comments Source ANTHRAX VACCINE, UNSPECIFIED 6 2023 319 complet ed Lot#: [id number] [facility] Influenza, injectable, quadrivalent, preservative free 2021 [id number] [employer]Kline (SKB) complet ed Influenza , injectabl e, quadrival ent, preservat gauri free DoD tetanus, diphtheria, acellular pertu is 2021 [id number] sanofi pasteur complet ed tetanus, diphtheri a, acellular pertussis 04/24/21 Given Ambulat ory Pharmac y TDAP 2 2021 115 complet ed tetanus toxoid, reduced diphtheri a toxoid, and acellular pertussis vaccine, adsorbed Lot#: [id number] Mfr: SANOFI PASTEUR [facility] tetanus toxoid, reduced diphtheria toxoid, and acellular pertu is vaccine, adsorbed 2 2021 [id number] Sanofi Pasteur (PMC) complet ed tetanus toxoid, reduced diphtheri a toxoid, and acellular pertussis vaccine, adsorbed DoD influenza virus vaccine, inactivated 2020 [id number] Seqirus complet ed influenza virus vaccine, inactivat ed 01/18/21 Given Ambulat ory Pharmac y Influenza, injectable, Madin Orly Canine Kidney, quadrivalent with preservative 9 2020 [id number] Seqirus (SEQ) comple t ed Influenza , injectabl e, Madin [place] Canine Kidney, quadrival ent with preservat gauri DoD COVID Vaccine Moderna 2020 [id number] complet ed COVID Vaccine Moderna 05/25/20 Given Ambulat ory Pharmac y COVID-19 (MODERNA), MRNA, LNP-S, PF, 100 MCG/0.5ML DOSE OR 50 MCG/0.25ML DOSE 2 2020 207 complet ed SARS-COV- 2 (COVID-19 ) vaccine, mRNA, spike protein, LNP, preservat gauri free, 100 mcg or 50 mcg dose Lot#: [id number] Mfr: MODERNA US, INC. [facility] SARS-COV-2 (COVID-19) vaccine, mRNA, spike protein, LNP, preservative free, 100 mcg or 50 mcg dose 2 2020 [id number] Moderna US, Inc. (MOD) complet ed SARS-COV- 2 (COVID-19 ) vaccine, mRNA, spike protein, LNP, preservat gauri free, 100 mcg or 50 mcg dose DoD COVID Vaccine Moderna 2020 [id number] complet ed COVID Vaccine Moderna 04/24/20 Given Ambulat ory Pharmac y COVID-19 (MODERNA), MRNA, LNP-S, PF, 100 MCG/0.5ML DOSE OR 50 MCG/0.25ML DOSE 1 2020 207 complet ed SARS-COV- 2 (COVID-19 ) vaccine, mRNA, spike protein, LNP, preservat gauri free, 100 mcg or 50 mcg dose Lot#: [id number] Mfr: MODERNA [employer] Object[employer] INC. [facility] SARS-COV-2 (COVID-19) vaccine, mRNA, spike protein, LNP, preservative free, 100 mcg or 50 mcg dose 1 2020 [id number] Moderna [employer] Inc. (MOD) complet ed SARS-COV- 2 (COVID-19 ) vaccine, mRNA, spike protein, LNP, preservat gauri free, 100 mcg or 50 mcg dose DoD influenza, injectable, quadrivalent- pf 2019 [id number] 150 Seqirus complet ed influenza , injectabl e, quadrival ent-pf 12/31/19 Given Ambulat ory Pharmac y Influenza, injectable, quadrivalent, preservative free 1 2019 [id number] 077 150 Seqirus (SEQ) complet ed Influenza , injectabl e, quadrival ent, preservat gauri free DoD influenza, injectable, quadrivalent- pf 2018 [id number] 150 Seqirus complet ed influenza , injectabl e, quadrival ent-pf 11/20/18 Given Ambulat ory Pharmac y Influenza, injectable, quadrivalent, preservative free 17 2018 [id number] 520 150 Seqirus (SEQ) complet ed Influenza [...] typhoid Vi capsular polysaccharid e vac 2017 [id number] sanofi pasteur complet ed typhoid Vi capsular polysacch aride vac 5/6/18 Given Ambulat ory Pharmac y TYPHOID, VICPS 2017 101 complet ed typhoid Vi capsular polysacch aride vaccine Lot#: [id number] Mfr: SANOFI PASTEUR [facility] typhoid Vi capsular polysaccharid e vaccine 5 2017 [id number] Sanofi Pasteur ([facility]) complet ed typhoid Vi capsular polysacch [...] virus vaccine DoD influenza, seasonal, injectable 2016 [id number] complet ed influenza , seasonal, injectabl e 12/13/16 Given Ambulat ory Pharmac y Influenza, seasonal, injectable, preservative free 2016 BOGDASARIAN, () Not Given Influenza , seasonal, injectabl e, preservat gauri free DoD Influenza, seasonal, injectable 1 2016 [id number] 141 Transcribed (TRS) complet ed Influenza , [...] gauri DoD influenza, live, intranasal,qu adrivalent 2014 [id number] 149 Medimmune Inc comple t ed influenza , live, intranasa l,quadriv alent 11/20/14 Given Ambulat ory Pharmac y influenza, live, intranasal, quadrivalent 13 2014 [id number] 149 MedImmOrthoAccel Technologies, Inc. (MED) complet ed influenza , live, intranasa l, quadrival ent DoD influenza, live, intranasal,qu adrivalent 2013 [id number] 149 Medimmune Inc comple t ed influenza , live, intranasa l,quadriv alent 12/14/13 Given Ambulat ory Pharmac y influenza, live, intranasal, quadrivalent 12 2013 [id number] 149 [employer]Note, Inc. (MED) complet ed influenza , live, intranasa l, quadrival ent DoD influenza, live, intranasal,qu adrivalent 2012 [id number] 149 [facility] t ed influenza , live, intranasa l,quadriv alent 10/13/12 Given Ambulat ory Pharmac y influenza, live, intranasal, quadrivalent 0 2012 [id number] 149 [employer]Note, Inc. (MED) complet ed influenza , live, intranasa l, quadrival ent DoD typhoid Vi capsular polysaccharid e vac 2012 [id number] 101 sanofi pasteur complet ed typhoid Vi capsular polysacch aride vac 08/16/12 Given Ambulat ory Pharmac y anthrax vaccine 2012 [id number] [employer] complet ed anthrax vaccine 08/16/12 Given Ambulat ory Pharmac y ANTHRAX VACCINE, UNSPECIFIED 7 2012 319 complet ed Lot#: [id number] [facility] anthrax vaccine 7 2012 [id number] [employer] [place] (MIP) complet ed anthrax vaccine DoD typhoid Vi capsular polysaccharid e vaccine 4 2012 [id number] 101 Sanofi Pasteur (PMC) complet ed typhoid Vi capsular polysacch aride vaccine DoD influenza virus vaccine, live 2011 [id number] 111 [email or web address] [facility] t ed influenza virus vaccine, live 10/30/11 Given Ambulat ory Pharmac y influenza virus vaccine, live, attenuated, for intranasal use 0 2011 [id number] 111 [employer]Note, Inc. (MED) complet ed influenza virus vaccine, live, attenuate d, for intranasa l use DoD tetanus, diphtheria, acellular pertu is 2011 [id number] 115 Innova TechnologyAlleghen[facility] Health NetworkBelkin InternationalHel[facility] complet ed tetanus, diphtheri a, acellular pertussis 05/22/11 Given Ambulat ory Pharmac y TDAP 2011 115 complet ed tetanus toxoid, reduced diphtheri a toxoid, and acellular pertussis vaccine, adsorbed Lot#: [id number] [facility] tetanus toxoid, reduced diphtheria toxoid, and acellular pertu is vaccine, adsorbed 0 2011 [id number] [place] [address] (SKB) complet ed tetanus toxoid, reduced diphtheri a toxoid, and acellular pertussis vaccine, adsorbed DoD anthrax vaccine 2011 [id number] [employer] complet ed anthrax vaccine 03/09/11 Given Ambulat ory Pharmac y typhoid Vi capsular polysaccharid e vac 2011 [id number] 101 sanofi pasteur complet ed typhoid Vi capsular polysacch aride vac 03/09/11 Given Ambulat ory Pharmac y ANTHRAX VACCINE, UNSPECIFIED 6 2011 319 complet ed Lot#: [id number] [facility] TYPHOID, VICPS 3 2011 101 complet ed typhoid Vi capsular polysacch aride vaccine Lot#: [id number] Mfr: SANOFI PASTEUR [facility] anthrax vaccine 6 2011 [id number] [employer] [place] (MIP) complet ed anthrax vaccine DoD typhoid Vi capsular polysaccharid e vaccine 3 2011 [id number] 101 Sanofi Pasteur ([facility]) complet ed typhoid Vi capsular polysacch aride vaccine DoD influenza virus vaccine, live 2010 [id number] 111 [email or web address] Inc comple t ed influenza virus vaccine, live 11/04/10 Given Ambulat ory Pharmac y influenza virus vaccine, live, attenuated, for intranasal use 9 2010 [id number] 111 [employer]Note, Inc. (MED) complet ed influenza virus vaccine, live, attenuate d, for intranasa l use DoD influenza virus vaccine,split 2009 [id number] 15 sanofi pasteur complet ed influenza virus vaccine,s plit 11/04/09 Given Ambulat ory Pharmac y influenza virus vaccine, split virus (incl. purified surface antigen)-reti red CODE 8 2009 [id number] 15 Sanofi Pasteur (PMC) complet ed influenza virus vaccine, split virus (incl. purified surface antigen)- retired CODE DoD anthrax vaccine 2009 [id number] [employer] complet ed anthrax vaccine 09/04/09 Given Ambulat ory Pharmac y anthrax vaccine 5 2009 [id number] [employer] [place] (MIP) complet ed anthrax vaccine DoD Novel influenza-H1N 1-09,pf,injec table 2009 [id number] 1 126 Novartis Pharmaceutica ls complet ed Novel influenza -Z2C7-29, pf,inject able 02/25/09 Given Ambulat ory Pharmac y Novel influenza-H1N 1-09, preservative- free, injectable 1 2009 [id number] 1 126 Novartis FUJIAN HAIYUANtica l Tyshawn. (NOV) complet ed Novel influenza -P6E3-29, preservat gauri-free, injectabl e DoD influenza virus vaccine, live 2008 [id number] 111 [employer] comple t ed influenza virus vaccine, live 10/26/08 Given Ambulat ory Pharmac y influenza virus vaccine, live, attenuated, for intranasal use 1 2008 [id number] 111 gripNote, [place]. (MED) complet ed influenza virus vaccine, live, attenuate d, for intranasa l use DoD anthrax vaccine 2008 [id number] [employer] complet ed anthrax vaccine 03/27/08 Given Ambulat ory Pharmac y ANTHRAX VACCINE, UNSPECIFIED 5 2008 319 complet ed Lot#: [id number] [facility] anthrax vaccine 5 2008 [id number] [employer] [place] (MIP) complet ed anthrax vaccine DoD influenza virus vaccine,split 2007 [id number] 15 CSL Behring complet ed influenza virus vaccine,s plit 11/14/07 Given Ambulat ory Pharmac y influenza virus vaccine, split virus (incl. purified surface antigen)-reti red CODE 1 2007 [id number] 15 CSMystery Science [employer]otherapies, Inc. (CSL) complet ed influenza virus vaccine, split virus (incl. purified surface antigen)- retired CODE DoD anthrax vaccine 2007 [id number] [employer] complet ed anthrax vaccine 09/12/07 Given Ambulat ory Pharmac y ANTHRAX VACCINE, UNSPECIFIED 4 2007 319 complet ed Lot#: [id number] [facility] anthrax vaccine 4 2007 [id number] [employer] [place] (MIP) complet ed anthrax vaccine DoD anthrax vaccine 2007 [id number] [employer] complet ed anthrax vaccine 03/30/07 Given Ambulat ory Pharmac y ANTHRAX VACCINE, UNSPECIFIED 3 2007 319 complet ed Lot#: [id number] [facility] anthrax vaccine 3 2007 [id number] [employer] [place] (MIP) complet ed anthrax vaccine DoD anthrax vaccine 2007 [id number] [employer] complet ed anthrax vaccine 03/10/07 Given Ambulat ory Pharmac y ANTHRAX VACCINE, UNSPECIFIED 2 2007 319 complet ed Lot#: [id number] [facility] anthrax vaccine 2 2007 [id number] [employer] [place] (MIP) complet ed anthrax vaccine DoD anthrax vaccine 2007 [id number] [employer] complet ed anthrax vaccine 02/21/07 Given Ambulat ory Pharmac y ANTHRAX VACCINE, UNSPECIFIED 1 2007 319 complet ed Lot#: [id number] [facility] anthrax vaccine 1 2007 [id number] [employer] [place] (MIP) complet ed anthrax vaccine DoD vaccinia (smallpox) vaccine 0 2007 75 () Not Given vaccinia (smallpox ) vaccine DoD influenza virus vaccine, live 2006 [id number] 111 [email or web address] Inc comple t ed influenza virus vaccine, live 01/10/07 Given Ambulat ory Pharmac y influenza virus vaccine, live, attenuated, for intranasal use 1 2006 [id number] 111 [employer]Note, Inc. (MED) complet ed influenza virus vaccine, live, attenuate d, for intranasa l use DoD typhoid vaccine, live, oral 2006 [id number] [employer] [place] complet ed typhoid vaccine, live, oral 03/05/06 Given Ambulat ory Pharmac y typhoid vaccine, live, oral 1 2006 [id number] 25 [employer] (Mitralign) complet ed typhoid vaccine, live, oral [facility] influenza virus vaccine, live 2005 [id number] 111 [facility] comple t ed influenza virus vaccine, live 12/04/05 Given Ambulat ory Pharmac y influenza virus vaccine, live, attenuated, for intranasal use 1 2005 [id number] [employer] (MED) complet ed influenza virus vaccine, live, attenuate d, for intranasa l use DoD influenza virus vaccine, live 2004 [id number] [facility] comple t ed influenza virus vaccine, live 12/25/04 Given Ambulat ory Pharmac y influenza virus vaccine, live, attenuated, for intranasal use 1 2004 [id number] [employer] (MED) complet ed influenza virus vaccine, live, attenuate d, for intranasa l use DoD influenza virus vaccine, live 2004 [id number] 111 [facility] t ed influenza virus vaccine, live 03/05/04 Given Ambulat ory Pharmac y typhoid Vi capsular polysaccharid e vac 2004 [id number] sanofi pasteur complet ed typhoid Vi capsular polysacch aride vac 03/05/04 Given Ambulat ory Pharmac y typhoid Vi capsular polysaccharid e vaccine 0 2004 [id number] 101 Sanofi Pasteur ([facility]) complet ed typhoid Vi capsular polysacch aride vaccine DoD influenza virus vaccine, live, attenuated, for intranasal use 0 2004 [id number] [facility] Center[facility] The[facility], Inc. (MED) complet ed influenza virus vaccine, live, attenuate d, for intranasa l use DoD hepatitis A-hepatitis B vaccine 2003 [id number] 104 GlaxoSmithK[employer] ne complet ed hepatitis A-hepatit is B vaccine 12/07/03 Given Ambulat ory Pharmac y HEP A-HEP B 3 2003 104 complet ed hepatitis A and hepatitis B vaccine Lot#: [id number] hepatitis A and hepatitis B vaccine 3 2003 [id number] 104 [facility] (SKB) complet ed hepatitis A and hepatitis B vaccine DoD hepatitis A-hepatitis B vaccine 2003 [id number] 104 GlaxoSmithKli ne complet ed hepatitis A-hepatit is B vaccine 07/07/03 Given Ambulat ory Pharmac y HEP A-HEP B 2 2003 104 complet ed hepatitis A and hepatitis B vaccine Lot#: [id number] [facility] hepatitis A and hepatitis B vaccine 2 2003 [id number] 104 [facility] (SKB) complet ed hepatitis A and hepatitis B vaccine DoD hepatitis A-hepatitis B vaccine 2003 [id number] 104 Gl[employer]Smith[employer] ky complet ed hepatitis A-hepatit is B vaccine 06/06/03 Given Ambulat ory Pharmac y HEP A-HEP B 1 2003 104 complet ed hepatitis A and hepatitis B vaccine Lot#: [id number] [facility] measles, mumps and rubella virus vaccine 0 2003 03 () Not Given measles, mumps and rubella virus vaccine DoD varicella virus vaccine 1 2003 21 () Not Given varicella virus vaccine DoD hepatitis A and hepatitis B vaccine 1 2003 [id number] 104 [place] ([place]) complet ed hepatitis A and hepatitis B vaccine DoD poliovirus vaccine, inactivated 2003 [id number] 10 sanofi pasteur complet ed polioviru s vaccine, inactivat ed 06/01/03 Given Ambulat ory Pharmac y tetanus-dipht h toxoids (Td) adult/adol 2003 [id number] sanofi pasteur complet ed tetanus-d iphth toxoids (Td) adult/ado l 06/01/03 Given Ambulat ory Pharmac y tuberculin purified protein derivative 2003 [id number] sanofi pasteur complet ed tuberculi n purified protein derivativ e 06/01/03 Given Ambulat ory Pharmac y meningococcal polysaccharid e (MPSV4) 2003 [id number] sanofi pasteur complet ed meningoco ccal polysacch aride (MPSV4) 06/01/03 Given Ambulat ory Pharmac y influenza virus vaccine, whole virus 2003 [id number] Novartis Pharm[employer]ica complet ed influenza virus vaccine, whole virus 06/01/03 Given Ambulat ory Pharmac y MENINGOCOCCAL MPSV4 2003 32 complet ed meningoco ccal polysacch aride vaccine (MPSV4) Lot#: [id number] Mfr: SANOFI PASTEUR [facility] POLIO, UNSPECIFIED FORMULATION 2003 89 complet ed Sanofi Pasteur Lot#: [id number] [facility] TD(ADULT) UNSPECIFIED FORMULATION 2003 139 complet ed tetanus and diphtheri a toxoids, adsorbed, preservat gauri free, for adult use (2 Lf of tetanus toxoid and 2 Lf of diphtheri a toxoid) Lot#: [id number] Mfr: SANOFI PASTEUR [facility] tetanus and diphtheria toxoids, adsorbed, preservative free, for adult use (2 Lf of tetanus toxoid and 2 Lf of diphtheria toxoid) 0 2003 [id number] Sanofi Pasteur ([facility]) complet ed tetanus and diphtheri a toxoids, adsorbed, preservat gauri free, for adult use (2 Lf of tetanus toxoid and 2 Lf of diphtheri a toxoid) DoD poliovirus vaccine, inactivated 0 2003 [id number] 10 Sanofi Pasteur ([facility]) complet ed polioviru s vaccine, inactivat ed DoD influenza virus vaccine, whole virus 0 2003 [id number] [employer] (PWJ) complet ed influenza virus vaccine, whole virus DoD meningococcal polysaccharid e vaccine (MPSV4) 0 2003 [id number] Sanofi Pasteur ([facility]) complet ed meningoco ccal polysacch aride vaccine [...] to the last 18 months, not all [place] inpatient encounters are included; 2) 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 Location Location Details Encounter Type Encounter Number Reason For Visit Attending Provider ADM Date DC Date Status Disposition Source [facility](Fam mara Practice Red) TELE CONSULT [id number] chest congest ion with fever SERGIO LOVE 03/23 [facility](F amily Practic e Red) [facility](Int Med Clinic) OUTPATIENT [id number] URI symptom s JOEL PITER A 03/23 Released w/o Limitations [facility](I nt Med Clinic) [facility](Fli ght Medicine Clinic) OUTPATIENT [id number] [facility] part 2 YAYA SANTOS 04/27 Released w/o Limitations [facility](F light Medicin e Clinic) [facility](Fam mara Practice Red) TELE CONSULT [id number] foot swollen and cant walk on it; pt has an appt tomorro w but ... MODESTO HANKINS 05/05 [facility](F amily Practic e Red) [facility](Fam mara Practice Blue) OUTPATIENT [id number] swollen painful R foot JAIME LAIRD 05/05 Released w/o Limitations [address] [place] [address] Group(F amily Practic e Blue) [facility](Fam mara Practice Red) OUTPATIENT [id number] pt injured r foot pain ful when put pressur e painful to touch SERGIO LOVE 05/06 Released w/o Limitations [facility](F amily Practic e Red) [facility](Opt ometry Clinic) OUTPATIENT [id number] possibl e foreign body LATIA CARVAJAL 05/06 Released w/o Limitations [facility](O ptometr y Clinic) [facility](Fam mara Practice Blue) TELE CONSULT [id number] right foot pain RADJULIETH CHILELICA D 05/08 [facility](F amily Practic e Blue) [facility](Fam mara Practice Blue) OUTPATIENT [id number] f/u on gout RADDEN, JAIME D 05/10 Released w/o Limitations [facility](F amily Practic e Blue) [facility](Fam mara Practice Blue) OUTPATIENT [id number] gout EITAN, JAIME D 05/13 Released w/o Limitations [facility](F amily Practic e Blue) [facility](Fam mara Practice Blue) TELE CONSULT [id number] CONCERN S ABOUT REFERRA L DOM REDMOND 05/14 [facility](F amily Practic e Blue) [facility](Fam mara Practice Red) OUTPATIENT [id number] profile and med refill KATE SERGIO 07/20 Released with Work/Duty Limitations [facility](F amily Practic e Red) [facility](Fam mara Practice Red) TELE CONSULT [id number] referra l for orthope dic special ist for ankle KATE, SERGIO 08/02 [facility](F amily Practic e Red) [facility](Fam mara Practice Red) TELE CONSULT [id number] pt was sent to orthope dic and pt was giving a out of work MODESTO Julio 09/09 [facility](F amily Practic e Red) [facility](Fam mara Practice Red) TELE CONSULT [id number] pt needs med refill ADALET 60mg pt has 5 pills left KATE, SERGIO 09/16 [facility](F amily Practic e Red) [facility](Fam mara Practice Red) OUTPATIENT [id number] f/u htn (adalat increas ed last appt) KATE, SERGIO 10/13 Released w/o Limitations [facility](F amily Practic e Red) [facility](Fam mara Practice Red) OUTPATIENT [id number] oversea s DEBBIE Boone 12/13 Released w/o Limitations [employer] [employer] [facility](F amily Practic e Red) [facility](Fam mara Practice Red) OUTPATIENT [id number] pt pcsing in eeds CONOR Blanchard 01/28 Released w/o Limitations [employer] [facility](F amily Practic e Red) [facility](Fam mara Practice Red) OUTPATIENT [id number] medical EDIE Rinaldi 03/09 Released w/o Limitations [employer](F amily Practic e Red) [facility](Fam mara Practice Red) OUTPATIENT [id number] F/U from appt Feb 22--med EDIE Angulo 03/23 Released w/o Limitations [employer](F amily Practic e Red) [facility](Fam mara Practice Red) OUTPATIENT [id number] follow up on bp EDIE IBANEZ 03/30 Released w/o Limitations [employer] [facility](F amily Practic e Red) [employer] [employer] [facility](Fam mara Practice Red) TELE CONSULT [id number] Pt has lian hopson about pha and hiv test MODESTO HANKINS 04/08 [employer] [facility](F amily Practic e Red) [employer]([facility]) OUTPATIENT [id number] pha due oversea JOIE Lizama 04/11 Released w/o Limitations [employer](P BUENO Cell) [facility] [id number] occp pe/stru ctural MX YAYA SANTOS 04/12 Released w/o Limitations [employer] [facility](F light Medicin e Clinic) [employer]([facility]) OUTPATIENT [id number] Inproce ssing Record Review EDITH DESAI 07/21 Released w/o Limitations [employer]([facility]) [facility] OUTPATIENT [id number] PHA JOHANNY AGUILERA 04/27 Released w/o Limitations [employer]( amily Practic e Clinic) [employer]([facility]) TELE CONSULT [id number] f/u pha , UN DIAN 05/01 [employer]( amily Practic e Clinic) [employer]([facility] Practice [facility]) OUTPATIENT [id number] f/u 3day bp check , UN DIAN 05/04 Released w/o Limitations [employer](F amily Practic e Clinic) [employer]([facility] Surgeon Office) OUTPATIENT [id number] [facility]- AUDIOGR AM,MED HY,PHY EX,WORK PLACE EXP,RES P QUEST JUANJO CLEARY J 07/05 Released w/o Limitations [employer]([facility] Surgeon [facility]) [employer]([facility]) OUTPATIENT [id number] JANNA Garcia 08/03 Sick at Home/Quarter s [employer](F amily Practic e Clinic) [employer]([facility]) OUTPATIENT [id number] FT- URI MISSY CORTEZ 11/05 Released w/o Limitations [employer](F amily Practic e Clinic) [employer]([facility]) OUTPATIENT [id number] FT-BRISA BOURGEOIS 11/06 Sick at Home/Quarter s [employer](F amily Practic e Clinic) [employer]([facility]) OUTPATIENT [id number] ft nasal congest ion product gauri cough clear sore throat JONEL BUSBY 11/09 Sick at Home/Quarter s [employer](F amily Practic e Clinic) [employer] [facility]) DENTAL [id number] Exam JOSE RAFAEL MAGAÑA 12/21 Released w/o Limitations [employer](D ental Clinic) [employer] [facility]) DENTAL [id number] DEION Pardo 12/21 Released w/o Limitations [employer](D ental Clinic) [employer]([facility]) TELE CONSULT [id number] VASECTO MY CONSULT XIANG MATHUR 01/28 [employer](F amily Practic e Clinic) [employer]([facility]) OUTPATIENT [id number] Vas Consult XIANG MATHUR 03/01 Released w/o Limitations [employer](F amily Practic e Clinic) [employer]([facility]) OUTPATIENT [id number] F/U HBP, LABS XIANG MATHUR R 04/02 Released w/o Limitations [facility](F amily Practic e Clinic) [employer]([facility]) OUTPATIENT [id number] PHA ANN MARIE COLÓN R 04/18 Released w/o Limitations [facility](P BUENO Cell) [employer]([facility]) TELE CONSULT [id number] CONLEAV E FOR SURGERY BRYANNA ADORNO R 04/25 [employer](F amily Practic e Clinic) [employer]([facility]) TELE CONSULT [id number] con lv or quarter s XIANG MATHUR R 08/12 [employer](F amily Practic e Clinic) [employer]([facility]) OUTPATIENT [id number] Per XIANG Fitzpatrick 08/13 Released w/o Limitations [facility](F amily Practic e Clinic) [employer]([facility]) TELE CONSULT [id number] F/U BLOOD PRESSUR MARK WHITTAKER 09/02 Medical Group(F amily Practic e Clinic) [employer]([facility]) TELE CONSULT [id number] Deploym ent ELMER Fofana 09/04 [employer](F amily Practic e Clinic) [employer]([facility]) OUTPATIENT [id number] finger pain x months/ pt request ed alterna te pcm. (pt's pcm on leave) MAYITO CHAVEZ 09/05 Released w/o Limitations [employer](F amily Practic e Clinic) [employer]([facility]) TELE CONSULT [id number] CALL BACK FOR DEPLOYM ENT ELMER ALBERTO 09/10 [employer](F amily Practic e Clinic) [employer]([facility] Surgeon Office) OUTPATIENT [id number] [facility] audio normal no exam needed RAMILA DAMIAN 09/12 Released w/o Limitations [employer]( light Surgeon Office) [employer]([facility] Surgeon Office) OUTPATIENT [id number] [facility] STERLING GEE 09/20 Released w/o Limitations [employer]( light Surgeon Office) [employer]([facility]) TELE CONSULT [id number] RETRO REFERRA L CHAPIS LEE 12/06 Referred for Appointment [employer](F amily Practic e Clinic) [employer]([facility]) TELE CONSULT [id number] quarter s MARK MCCLENDON 12/06 [employer] [facility](F amily Practic e Clinic) [employer]([facility]) TELE CONSULT [id number] RETRO REFERRA L MISSY CORTEZ 12/12 Referred for Appointment [employer] [facility](F amily Practic e Clinic) [employer]([facility]) TELE CONSULT [id number] NAUSEA/ BUENO X TODAY CHAPIS FULTON 12/24 Referred for Appointment [employer] [facility](F amily Practic e Clinic) [employer]([facility]) TELE CONSULT [id number] work excuse/ quarter s CANDY TOPETE 12/24 [employer] [facility](F amily Practic e Clinic) [employer]([facility]) TELE CONSULT [id number] Quarter s [employer] CANDY TOPETE 01/03 [employer] [facility](F amily Practic e Clinic) [employer]([facility]) OUTPATIENT [id number] NVD, BUENO, chills -FT- JUANJO FULTON 01/24 Sick at Home/Quarter s [employer](F amily Practic e Clinic) [employer]([facility]) OUTPATIENT [id number] ON GOING RASH X 1 MTH //POSSI BLE DERMATO LOGY BRYANNA WHITNEY 02/05 Released w/o Limitations [employer](F amily Practic e Clinic) [employer]([facility]) TELE CONSULT [id number] Referra demar mirza for CHAPIS Gardiner Demar 02/18 Referred for Appointment [facility] [facility](F amily Practic e Clinic) [employer] [facility] [employer]([facility]) OUTPATIENT [id number] SORE THROAT, HEADACH E, FEVER, CHILLS TANNER VILLASEÑOR 02/28 Released w/o Limitations [facility](F amily Practic e Clinic) [employer]([facility]) TELE CONSULT [id number] KEENAN SHERIFF 03/11 Referred for Appointment [facility](F amily Practic e Clinic) [facility] [employer]([facility]) TELE CONSULT [id number] NURSE CONSULT /REACTI ON TO KEENAN POOLE 03/20 Medical Group(F amily Practic e Clinic) [employer]([facility]) OUTPATIENT [id number] sore throat/ med side effects CANDY TOPETE 03/24 Released w/o Limitations [employer](F amily Practic e Clinic) [employer] [facility] [employer]([facility]) OUTPATIENT [id number] MARK Benedict 04/21 Sick at Home/Quarter s [facility](F amily Practic e Clinic) [facility]) OUTPATIENT [id number] PHA/EMS VICKIE SIU 05/29 Released w/o Limitations [employer](P [facility] Cell) [employer]([facility] Med Cl Tm B Non-Ad) TELE CONSULT [id number] ACTIVE DUTY/ RIGHT CALF PAIN KEENAN SHERIFF 08/19 [employer](F am Med Cl Tm B Non-Ad) [employer]([facility]) OUTPATIENT [id number] right calf pain since last y CANDY TOPETE 08/20 Released w/o Limitations [employer] [facility] [employer](F amily Practic e Clinic) [employer](Fam Med Cl Tm B Non-Ad) TELE CONSULT [id number] LIAN HOLT PROFILE /WAS SEEN YESTERD KEENAN HOWE 08/21 [employer](F am Med Cl Tm B Non-Ad) [employer](Fam Med Cl Tm B Non-Ad) TELE CONSULT [id number] profile extensi on request KISHORE MARROQUIN O 09/05 [employer](F am Med Cl Tm B Non-Ad) [employer](Fam Med Cl Tm B Non-Ad) TELE CONSULT [id number] PROFILE EXTENSI ON KISHORE MARROQUIN O 09/08 [employer](F am Med Cl Tm B Non-Ad) [employer](Fam Med Cl Tm B Non-Ad) OUTPATIENT [id number] fu right leg / profile CANDY TOPETE 09/17 Released w/o Limitations [employer](F am Med Cl Tm B Non-Ad) [employer]([facility] Affiliate s) OUTPATIENT [id number] F/U PROFILE JUANJO FULTON Demar 10/03 Released w/o Limitations [employer]([facility] Affilia nikolay) [employer](Phy sical Therapy Clinic) OUTPATIENT [id number] SUMIT ROSEN 10/03 Released with Work/Duty Limitations [employer](P hysical Therapy Clinic) [employer](Phy sical Therapy Clinic) OUTPATIENT [id number] Rt lower leg pain MARCIAL, LUIS 10/09 Released with Work/Duty Limitations [employer](P hysical Therapy Clinic) [employer](Phy [facility]ical Therapy Clinic) OUTPATIENT [id number] NATALIIA GUERIN 10/14 Released with Work/Duty Limitations [employer](P hysical Therapy Clinic) [facility] [facility](Phy [facility]ical Therapy Clinic) OUTPATIENT [id number] MARCIAL, LUIS 10/16 Released with Work/Duty Limitations [employer](P hysical Therapy Clinic) [employer] [facility](Phy [facility]ical Therapy Clinic) OUTPATIENT [id number] BRISA GONZALEZ 10/28 Released with Work/Duty Limitations [employer](P hysical Therapy Clinic) [employer] [facility](Phy sical Therapy Clinic) OUTPATIENT [id number] SUMIT ROSEN 10/29 Released with Work/Duty Limitations [employer](P hysical Therapy Clinic) [employer](Fli ght Surgeon Office) OUTPATIENT [id number] [facility] LEIGH TAYLOR 11/21 Released w/o Limitations [employer](F light Surgeon Office) [employer](Phy sical Therapy Clinic) OUTPATIENT [id number] BRISA GONZALEZ 12/19 Released w/o Limitations [employer](P hysical Therapy Clinic) [employer] [facility](Phy [facility]ical Therapy Clinic) OUTPATIENT [id number] MARCIAL, LUIS 12/29 Released w/o Limitations [employer](P hysical Therapy Clinic) [employer] [facility](Phy sical Therapy Clinic) OUTPATIENT [id number] MARCIAL, LUIS 01/02 Released w/o Limitations [employer](P hysical Therapy Clinic) [facility] [facility](Phy sical Therapy Clinic) OUTPATIENT [id number] MARCIAL, LUIS 01/05 Released w/o Limitations [employer](P hysical Therapy Clinic) [employer] [facility](Phy sical Therapy Clinic) OUTPATIENT [id number] SUMIT ROSEN 01/26 Released with Work/Duty Limitations [employer](P hysical Therapy Clinic) [employer] [facility](Phy [facility]ical Therapy Clinic) OUTPATIENT [id number] MARCIAL, LUIS 02/13 Released with Work/Duty Limitations [employer](P hysical Therapy Clinic) [employer] [facility](Phy sical Therapy Clinic) OUTPATIENT [id number] MARCIAL, LUIS 02/20 Released with Work/Duty Limitations [employer](P hysical Therapy Clinic) [employer](Phy sical Therapy Clinic) OUTPATIENT [id number] NATALIIA GUERIN 03/10 Released with Work/Duty Limitations [employer](P hysical Therapy Clinic) [employer](I Affiliate s) TELE CONSULT [id number] PRE DEPLOYM ENT CLEARAN CE APR 14 2011 DAYTON LORA E 03/13 [employer](F HI Affilia nikolay) [employer](Phy sical Therapy Clinic) OUTPATIENT [id number] BRISA GONZALEZ 03/13 Released with Work/Duty Limitations [employer](P hysical Therapy Clinic) [employer](Phy [facility]ical Therapy Clinic) OUTPATIENT [id number] LUIS MARCIAL 03/16 Released with Work/Duty Limitations [employer](P hysical Therapy Clinic) [employer](Phy sical Therapy Clinic) OUTPATIENT [id number] SUMIT ROSEN 04/10 Released with Work/Duty Limitations [employer](P hysical Therapy Clinic) [employer](Fam Med Cl Tm B Non-Ad) OUTPATIENT [id number] F/U PROFILE / MED ROHIT LUCIANO 05/24 Released w/o Limitations [employer](F am Med Cl Tm B Non-Ad) [employer]([facility] Team D) OUTPATIENT [id number] chest cold, hurt finger SKYLAR ARIAS 07/22 Released w/o Limitations [employer](O del cid [facility] Team D) [employer](Fam Med Cl Tm B Non-Ad) TELE CONSULT [id number] Notes Entered by: RICHARD CRYSTAL 03 Aug 2011 0810 ------- ------- ------- ------- -- Physica l Therapy ROHIT Stewart 08/02 [employer](F am Med Cl Tm B Non-Ad) [employer]([facility] Affiliate s) TELE CONSULT [id number] Notes Entered by: Da WORKMAN 01 Dec 2011 1158 ------- ------- ------- ------- -- ER VISIT F/U MISSY CORTEZ 11/30 [employer]([facility] Affilia nikolay) [employer](Fam Med Cl Tm B Non-Ad) TELE CONSULT [id number] Notes Entered by: Da WORKMAN 01 Dec 2011 1204 ------- ------- ------- ------- -- L. FOOT PAIN REYNA MOREL 11/30 [employer](F am Med Cl Tm B Non-Ad) [employer]([facility]) OUTPATIENT [id number] left foot pain//c roxanne NIETOVENITA S 12/02 Released w/o Limitations [employer]([facility]) [employer](Fam Med Cl Tm B Non-Ad) TELE CONSULT [id number] Notes Entered by: REYNA MOREL 24 Dec 2011 1339 ------- ------- ------- ------- -- Con leave request REYNA MOREL 12/23 [employer](F am Med Cl Tm B Non-Ad) [employer] [facility]) TELE CONSULT [id number] Notes Entered by: STACY LIN 29 Dec 2011 0941 ------- ------- ------- ------- -- CON LEAVE EXT REYNA MOREL 12/28 [employer]([facility]) [employer] [facility](Fam Med Cl Tm B Non-Ad) TELE CONSULT [id number] Notes Entered by: ROHIT CLARK 11 Jan 2012 1712 ------- ------- ------- ------- -- ROHIT Tan 01/10 [employer](F am Med Cl Tm B Non-Ad) [employer](Fam Med Cl Tm B Non-Ad) OUTPATIENT [id number] nausea diarrhe a some lighthe adednes s x 3 days// DEJA LEOS 04/29 Sick at Home/Quarter s [employer](F am Med Cl Tm B Non-Ad) [employer] [facility] Surgeon Office) OUTPATIENT [id number] Notes Entered by: Da WORKMAN 02 May 2012 0935 ------- ------- ------- ------- -- f/u n/DELGADO Glover 05/02 Sick at Home/Quarter s [facility](F light Surgeon Office) [employer](Fam Med Cl Tm B Non-Ad) TELE CONSULT [id number] Notes Entered by: KAMERON GE 30 May 2012 1304 ------- ------- ------- ------- -- ACTIVE DUTY PT WITH RASH/ RIGHT ARM MISSY CORTEZ 05/30 [employer](F am Med Cl Tm B Non-Ad) [employer](Fam Med Cl Tm B Non-Ad) OUTPATIENT [id number] nurse clinic - rash// MISSY CORTEZ 05/30 Released w/o Limitations [employer](F am Med Cl Tm B Non-Ad) [employer](Fli [facility] Surgeon Office) OUTPATIENT [id number] [facility] BEVERLY BATES Edgar 06/06 Released w/o Limitations [employer](F light Surgeon Office) [employer](Fam Med Cl Tm B Non-Ad) TELE CONSULT [id number] Notes Entered by: ALIYA MCKEON 04 Jul 2012 1012 ------- ------- ------- ------- -- Network Results -RHEUMA IDALIAOGY 05/28 MISSY CORTEZ 07/[employer](F am Med Cl Tm B Non-Ad) [employer](PHA Cell) OUTPATIENT [id number] ZACHARY MARCH 07/12 Released w/o Limitations [employer](P BUENO Cell) [employer](Fam Med Cl Tm B Non-Ad) OUTPATIENT [id number] MED CK, BP CK ROHIT CLARK 08/03 Released w/o Limitations [employer](F am Med Cl Tm B Non-Ad) [employer](Dep [facility] Health Assessmen ts) OUTPATIENT [id number] Pre BREE VLILALOBOS 08/16 Released w/o Limitations [employer](D eployme Health Assessm ents) [employer]([facility]) OUTPATIENT [id number] Notes Entered by: William ROSE 06 Sep 2012 1231 ------- ------- ------- ------- -- VAIBHAV STOKES 09/06 Released w/o Limitations [facility](M [facility]) [employer](Fam Med Cl Tm B Non-Ad) TELE CONSULT [id number] Notes Entered by: NEELAM CONROY 14 Sep 2012 1318 ------- ------- ------- ------- -- PRE DEPLOYM ENT ROHIT MARTINES 09/14 [facility] Group(F am Med Cl Tm B Non-Ad) Theater Facility OUTPATIENT [id number] Theater Provider 04/27 Released w/o Limitations [facility] [employer] [facility](Fam Med Cl Tm B Non-Ad) TELE CONSULT [id number] Notes Entered by: KAMERON GE 04 Sep 2013 0837 ------- ------- ------- ------- -- ACTIVE DUTY/ VOMITIN G/ NAUSEA KEENAN SHERIFF 09/04 Referred for Appointment [facility](F am Med Cl Tm B Non-Ad) [employer](Fli t Surgeon Office) OUTPATIENT [id number] [facility] Released w/o Limitations [employer](F light Surgeon Office) [employer](Fam Med Cl Tm B Non-Ad) OUTPATIENT [id number] BP med ROHIT Luciano 09/06 Released w/o Limitations [employer](F am Med Cl Tm B Non-Ad) [employer](Int [facility] OUTPATIENT [id number] sleep TITO FORBES 09/06 Released w/o Limitations [employer] [facility](I ntegrat ed Behavio ral Hlth Cln) [employer](Dep [facility] Health Assessmen ts) OUTPATIENT [id number] DHA3, 40 min BREE HOLT 09/14 Released w/o Limitations [employer](D eployme nt Health Assess ents) [employer](PHA Cell) OUTPATIENT [id number] PHA-WHA TO BE DIANA MENDOZA ED 09/14 Released w/o Limitations [employer](P BUENO Cell) [employer](Int [facility]) OUTPATIENT [id number] F/U armand FORBES, DEANGELOVIDA L 09/22 Released w/o Limitations [employer](I ntegrat ed Behavio ral Hlth Cln) [employer](Fam Med Cl Tm B Non-Ad) TELE CONSULT [id number] Notes Entered by: KAMERON GE 22 Sep 2013 1527 ------- ------- ------- ------- -- ACTIVE DUTY/ PULLED GROIN WHILE RUNNING KEENAN SHERIFF 09/22 Referred for Appointment [employer](F am Med Cl Tm B Non-Ad) [employer](Fam Med Cl Tm B Non-Ad) OUTPATIENT [id number] left groin pain ROHIT CLARK Olga 09/25 Released with Work/Duty Limitations [employer](F am Med Cl Tm B Non-Ad) [employer](Int [facility]ated [facility]) OUTPATIENT [id number] F/U sleep ANDREI, DEANGELOVIDA L 09/28 Released w/o Limitations [employer](I ntegrat ed Behavio ral Hlth Cln) [employer](Fam Med Cl Tm B Non-Ad) TELE CONSULT [id number] Notes Entered by: KAMERON GE 20 Oct 2013 0946 ------- ------- ------- ------- -- ACTIVE DUTY/ POSSIBL E STREP THROAT KEENAN SHERIFF 10/20 Referred for Appointment [employer](F am Med Cl Tm B Non-Ad) [employer](Fam Med Cl Tm B Non-Ad) TELE CONSULT [id number] Notes Entered by: KEENAN SHERIFF 24 Oct 2013 1321 ------- ------- ------- ------- -- Lab results KEENAN SHERIFF 10/24 Referred for Appointment [employer](F am Med Cl Tm B Non-Ad) [employer](Fam Med Cl Tm B Non-Ad) TELE CONSULT [id number] Notes Entered by: Edgar PENA 01 Dec 2013 0743 ------- ------- ------- ------- -- ER F/U KEENAN SHERIFF 12/01 Immediate Referral [employer](F am Med Cl Tm B Non-Ad) [employer](Fam Med Cl Tm B Non-Ad) OUTPATIENT [id number] f/u - left ROHIT Jones 12/04 Sick at Home/Quarter s [employer](F am Med Cl Tm B Non-Ad) [employer](Fam Med Cl Tm B Non-Ad) OUTPATIENT [id number] F/U ROHIT Vidal 12/08 Released w/o Limitations [employer](F am Med Cl Tm B Non-Ad) [employer](Fam Med Cl Tm B Non-Ad) TELE CONSULT [id number] Notes Entered by: KAMERON GE 18 Jan 2014 1033 ------- ------- ------- ------- -- ACTIVE DUTY/ PROFILE ISSUE FLOR KWAN 01/18 Referred for Appointment [employer](F am Med Cl Tm B Non-Ad) [employer](Fam Med Cl Tm B Non-Ad) TELE CONSULT [id number] Notes Entered by: BROOKE HERNADEZ 09 Mar 2014 1523 ------- ------- ------- ------- -- Out Process FLOR Wong 03/09 Released to Self Care [employer](F am Med Cl Tm B Non-Ad) [place] [address](AFN G 104 Med Sq-FM) OUTPATIENT [id number] Notes Entered by: Antoinette GUILLEN II 16 Jul 201630 ------- ------- ------- ------- -- Short Non-Fly / Occupat [facility] HAJA MONTEROYOSVANY Espinoza 07/16 Released w/o Limitations [facility] [place] [address](A FNG 104 Med Sq-FM) [place] [address](AFN G 104 Med Sq-FM) OUTPATIENT [id number] Notes Entered by: MARCIA MEDEL 28 Nov 2016 0941 ------- ------- ------- ------- -- Med f/u 469 MARCIA MEDEL 11/28 Released with Work/Duty Limitations [facility] [place] [address](A FNG 104 Med Sq-FM) [place] [address](AFN G 104 Med Sq-FM) OUTPATIENT [id number] Notes Entered by: LY JACKSON 15 Jan 2017 1329 ------- ------- ------- ------- -- Provide r f/u JOHANNY BRADEN 01/15 Released w/o Limitations [facility] [place] [address](A FNG 104 Med Sq-FM) [place] [address](AFN G 104 Med Sq-FM) OUTPATIENT [id number] Notes Entered by: TREY BULLOCK 18 Mar 2017 1320 ------- ------- ------- ------- -- JOSE RAFAEL SHORE 03/18 Released with Work/Duty Limitations [facility] [place] [address](A FNG 104 Med Sq-FM) [place] [address](AFN G 104 Med Sq-FM) OUTPATIENT [id number] Notes Entered by: HOLLIE ALTMAN 09 Apr 2017 1726 ------- ------- ------- ------- -- MARTHA Esparza 04/09 [facility]itations [facility] [place] [address](A FNG 104 Med Sq-FM) [place] [address](AFN G 104 Med Sq-FM) OUTPATIENT [id number] Notes Entered by: TREY BULLOCK 16 Apr 2017 1511 ------- ------- ------- ------- -- Luis Enrique mirza MD note review JOSE RAFAEL BULLOCK 04/16 Released with Work/Duty Limitations [facility] [place] [place] [address](A FNG 104 Med Sq-FM) [place] [address](AFN G 104 Med Sq-FM) OUTPATIENT [id number] Notes Entered by: JOHANNY BRADEN 25 Feb 2018 1317 ------- ------- ------- ------- -- right Juan M salazar, RTD JOHANNY BRADEN 02/25 [facility]ased w/o Limitations [facility] [place] [address](A FNG 104 Med Sq-FM) [place] [address](AFN G 104 Med Sq-FM) OUTPATIENT [id number] 4 Notes Entered by: JOHANNY BRADEN 15 Apr 2018 1026 ------- ------- ------- ------- -- Occ/Ski n exam and PHAQ JOHANNY BRADEN 04/15 Released w/o Limitations [facility] [place] [address](A FNG 104 Med Sq-FM) [place] [address](AFN G 104 Med Sq-FM) OUTPATIENT [id number] Notes Entered by: MARICRUZ MONTERO 21 May 2018 1040 ------- ------- ------- ------- -- 469 f/u MARTHA MONTERO 05/21 Released w/o Limitations [facility] [place] [address](A FNG 104 Med Sq-FM) [place] [address](AFN G 104 Med Sq-FM) OUTPATIENT [id number] Notes Entered by: MARCIA MEDEL 17 Jun 2018 1443 ------- ------- ------- ------- -- right foot MARCIA MEDEL 06/17 [facility] with Work/Duty Limitations [facility] [place] [address](A FNG 104 Med Sq-FM) [place] [id number](AFN G 104 Med Sq-FM) OUTPATIENT [id number] 5 Notes Entered by: MARCIA MEDEL 01 Oct 2018 0949 ------- ------- ------- ------- -- follow up MARCIA Ordaz 10/01 Released with Work/Duty Limitations [facility] [place] [place] [address](A FNG 104 Med Sq-FM) [facility], [facility](AFN G 104 Med Sq-FM) OUTPATIENT [id number] 0 Notes Entered by: MARCIA MEDEL 08 Mar 2019 1449 ------- ------- ------- ------- -- R foot pain MARCIA MEDEL 03/08 [facility] with Work/Duty Limitations [facility] [place] [address](A FNG 104 Med Sq-FM) [place] [address](AFN G 104 Med Sq-FM) TELE CONSULT [id number] Notes Entered by: MARCIA MEDEL 09 Mar 2019 1020 ------- ------- ------- ------- -- foot pain MARCIA MEDEL 03/09 [facility] [place] [address](A FNG 104 Med Sq-FM) [place] [address](AFN G 104 Med Sq-FM) OUTPATIENT [id number] 7 Notes Entered by: SCOTT HINDS 09 Mar 2019 1439 ------- ------- ------- ------- -- Annual MSE / OH exams GIANFRANCO, MARCIA DUMONT 03/09 Released with Work/Duty Limitations [facility] [place] [address](A FNG 104 Med Sq-FM) [place] [address](AFN G 104 Med Sq-FM) OUTPATIENT [id number] Notes Entered by: MARCIA MEDEL 21 Mar 2019 1022 ------- ------- ------- ------- -- PHAQ MARCIA MEDEL 03/21 Released with Work/Duty Limitations [facility] [place] [address](A FNG 104 Med Sq-FM) [place] [address](AFN G 104 Med Sq-FM) TELE CONSULT [id number] 3 Notes Entered by: MARCIA MEDEL 14 Apr 2019 1039 ------- ------- ------- ------- -- Op note MARCIA MEDEL 04/14 [facility] [place] [address](A FNG 104 Med Sq-FM) [facility], [facility](AFN G 104 Med Sq-FM) TELE CONSULT [id number] Notes Entered by: MARCIA MEDEL 21 Apr 2019 1409 ------- ------- ------- ------- -- foot pain MARCIA MEDEL JULIA 04/20 [facility] [place] [address](A FNG 104 Med Sq-FM) [place] [address](AFN G 104 Med Sq-FM) TELE CONSULT [id number] Notes Entered by: MARCIA MEDEL JULIA 26 Apr 2019 1249 ------- ------- ------- ------- -- R foot pain MARCIA MEDEL JULIA 04/25 [facility] [place] [address](A FNG 104 Med Sq-FM) [place] [address](AFN G 104 Med Sq-FM) TELE CONSULT [id number] 7 Notes Entered by: GIANFRANCOMARCIA WILKINSON JULIA 17 May 2019 1151 ------- ------- ------- ------- -- foot pain MARCIA MEDEL JULIA 05/16 [facility] [place] [address](A FNG 104 Med Sq-FM) [place] [address](AFN G 104 Med Sq-FM) TELE CONSULT [id number] Notes Entered by: TREY BULLOCK 08 Jun 2019 0912 ------- ------- ------- ------- -- note review JOSE RAFAEL BULLOCK 06/07 [facility] [place] [address](A FNG 104 Med Sq-FM) [place] [address](AFN G 104 Med Sq-FM) TELE CONSULT [id number] MARCIA MEDLE JULIA 08/14 [facility] [place] [address](A FNG 104 Med Sq-FM) [place] [address](AFN G 104 Med Sq-FM) TELE CONSULT [id number] 7 Notes Entered by: MARCIA MEDEL 12 Oct 2019 1405 ------- ------- ------- ------- -- follow up GIANFRANCOMARCIA WILKINSON JULIA 10/11 [facility] [place] [place] [address](A FNG 104 Med Sq-FM) [facility], [place] [address](AFN G 104 Med Sq-FM) OUTPATIENT [id number] Notes Entered by: MARCIA MEDEL 24 Oct 2019 0916 ------- ------- ------- ------- -- Right foot pain GIANFRANCO, MARCIA DUMONT 10/23 Released with Work/Duty Limitations [facility] [place] [address](A FNG 104 Med Sq-FM) [facility], [place] [address](AFN G 104 Med Sq-FM) TELE CONSULT [id number] Notes Entered by: GIANFRANCO MARCIATIA DUMONT 09 Jan 2020 1459 ------- ------- ------- ------- -- R foot pain GIANFRANCO, MARCIA JULIA 01/08 [facility] [place] [place] [address](A FNG 104 Med Sq-FM) [facility], [place] [address](AFN G 104 Med Sq-FM) TELE CONSULT [id number] Notes Entered by: MARCIA MEDEL 05 Mar 2020 0904 ------- ------- ------- ------- -- R foot pain GIANFRANCO MARCIA DUMONT 03/05 [facility] [place] [address](A FNG 104 Med Sq-FM) [facility], [place] [address](AFN G 104 Med Sq-FM) OUTPATIENT [id number] GIANFRANCOMARCIA WILKINSON JULIA 03/14 [facility]ased w/o Limitations [facility] [place] [address](A FNG 104 Med Sq-FM) [facility], [facility](AFN G 104 Med Sq-FM) OUTPATIENT [id number] Notes Entered by: MARCIA MEDEL 14 Mar 2020 1055 ------- ------- ------- ------- -- PHAQ MARCIA MEDEL 03/14 Released with Work/Duty Limitations [facility], [facility](A FNG 104 Med Sq-FM) [place] [address](AFN G 104 Med Sq-FM) TELE CONSULT [id number] Notes Entered by: MARCIA MEDEL 03 Apr 2020 1443 ------- ------- ------- ------- -- R foot pain MARCIA MEDEL 04/03 [facility] [place] [address](A FNG 104 Med Sq-FM) [place] [address](AFN G 104 Med Sq-FM) TELE CONSULT [id number] Notes Entered by: MARCIA MEDEL 09 Apr 2020 1056 ------- ------- ------- ------- -- return MARCIA MEDEL 04/09 [facility] [place] [address](A FNG 104 Med Sq-FM) [facility], [facility](AFN G 104 Med Sq-FM) OUTPATIENT [id number] Notes Entered by: RUTH SHIRLEY 24 Apr 2020 1247 ------- ------- ------- ------- -- Audiogr am /Respir ator Fit Test /[place] Questio nnaire/ HIV/Vit als/ Provide r([place]-Ph ysica MARCIA MEDEL 04/24 Released w/o Limitations [facility] [place] [address](A FNG 104 Med Sq-FM) [place] [address](AFN G 104 Med Sq-FM) TELE CONSULT [id number] Notes Entered by: GIANFRANCOANTOINE WILKINSONTIA DUMONT 11 Jul 2020 1554 ------- ------- ------- ------- -- R foot pain MARCIA MEDEL JULIA 07/11 [facility] [place] [address](A FNG 104 Med Sq-FM) [facility], [place] [address](AFN G 104 Med Sq-FM) OUTPATIENT [id number] Notes Entered by: MARCIA MEDEL 10 Sep 2020 0936 ------- ------- ------- ------- -- LUISITO MEDELANTOINEMARCIATIA DUMONT 09/10 Sick at Home/Quarter s [facility] [place] [address](A FNG 104 Med Sq-FM) [facility], [place] [address](AFN G 104 Med Sq-FM) TELE CONSULT [id number] GIANFRANCOMARCIA JULIA 12/10 [facility] [place] [address](A FNG 104 Med Sq-FM) [facility], [place] [address](AFN G 104 Med Sq-FM) TELE CONSULT [id number] GIANFRANCOMARCIA JULIA 01/01 [facility] [place] [address](A FNG 104 Med Sq-FM) [place] [address](AFN G 104 Med Sq-FM) TELE CONSULT [id number] GIANFRANCOANTOINEMARCIATIA DUMONT 01/07 [facility] [place] [address](A FNG 104 Med Sq-FM) [facility], [place] [address](AFN G 104 Med Sq-FM) TELE CONSULT [id number] GIANFRANCO MARCIA DUMONT 02/05 [facility] [place] [address](A FNG 104 Med Sq-FM) [place] [address](AFN G 104 Med Sq-FM) OUTPATIENT [id number] Notes Entered by: MARCIA MEDEL JULIA 25 Feb 2021 1434 ------- ------- ------- ------- -- JORGE LUIS MARCIA MEDEL JULIA 02/25 Released with Work/Duty Limitations [facility] [place] [address](A FNG 104 Med Sq-FM) [place] [address](AFN G 104 Med Sq-FM) OUTPATIENT [id number] Notes Entered by: SARAH MCPHERSON 24 Apr 2021 1402 ------- ------- ------- ------- -- Occupat [facility] JOSE RAFAEL Baig 04/24 Released with Work/Duty Limitations [facility] [place] [address](A FNG 104 Med Sq-FM) [place] [address](AFN G 104 Med Sq-FM) TELE CONSULT [id number] MARCIA MEDELCONNIE 09/24 [facility] [place] [address](A FNG 104 Med Sq-FM) [place] [address](AFN G 104 Med Sq-FM) TELE CONSULT [id number] MARCIA MEDELCONNIE 10/22 [facility] [place] [address](A FNG 104 Med Sq-FM) [place] [address](AFN G 104 Med Sq-FM) TELE CONSULT [id number] 3 MARCIA MEDELCONNIE 01/15 [facility] [place] [address](A FNG 104 Med Sq-FM) [place] [address](AFN G 104 Med Sq-FM) TELE CONSULT [id number] MARCIA MEDEL 03/13 [facility] [place] [address](A FNG 104 Med Sq-FM) [place] [address](AFN G 104 Med Sq-FM) OUTPATIENT [id number] Notes Entered by: MARCIA MEDEL 17 Mar 2022 1610 ------- ------- ------- ------- -- JONASQ MARCIA MEDEL 03/17 Released with Work/Duty Limitations [facility] [place] [address](A FNG 104 Med Sq-FM) [place] [address](AFN G 104 Med Sq-FM) OUTPATIENT [id number] Notes Entered by: MALVIN HARTLEY 16 Apr 2022 1641 ------- ------- ------- ------- -- KEKE Armstrong 04/16 Released w/o Limitations [facility] [place] [address](A FNG 104 Med Sq-FM) [facility] Outpatient Encounter [id number] 04/08 [facility] En[facility] [id number] 05/18 [facility] En[facility] [id number] 09/04 [facility] Encounter [id number] 03/02 [facility] OFFICE O/P NEW MOD 45 MIN [id number] Diagnos is: ICD-10- CM I10 Essenti al (primar y) hyperte GERARD Fortune 03/02 [facility] Out[facility] Encounter [id number] 03/02 [facility] CASE MANAGEMENT [id number] Diagnos is: ICD-10- CM Z71.89 Other specifi ed litigation counsel JOY Contreras 03/03 [facility] Out[facility] Encounter [id number] 03/07 [facility] En[facility] [id number] 03/08 [facility] Encounter [id number] 03/10 [facility]counter [id number] 03/10 [facility] Encounter [id number] 03/13 [facility] CASE MANAGEMENT [id number] Diagnos is: ICD-10- CM Z71.89 Other specifi ed litigation counsel JOY Contreras 03/20 [facility] CASE MANAGEMENT [id number] Diagnos is: ICD-10- CM Z71.89 Other specifi ed litigation counsel JOY Contreras 03/27 [facility] Out[facility] Encounter [id number] 03/27 [facility] Out[facility] Encounter [id number] 03/29 [facility] Procedures Combined list of: 1) Procedures from [facility] Veterans Affairs facilities going back up to thelast 18 months, not all [place] non-surgical procedures are included; 2) All procedures [...] COST TO PHYSICIAN OR OTHER QUALIFIED HEALTH INSIDE SALES PROFESSIONAL 2003 [facility] SCREENING TEST, PURE TONE, AIR ONLY 2013 [facility] NEUROPSYCHOLOGICAL TESTING (EG, [place] CARD SORTING TEST), ADMINISTERED BY A COMPUTER, WITH QUALIFIED HEALTH INSIDE SALES PROFESSIONAL INTERPRETATION AND REPORT 2012 DoD PURE TONE [...] DoD UNLISTED PULMONARY SERVICE OR PROCEDURE 2009 [facility] SCREENING TEST, PURE TONE, AIR ONLY 2009 [facility] TELE ASSESS & MGT SRV [...] ACUITY,OCULAR ALIGN,COLOR VISION,PSEUDOISOCHRO MAT PLATES,& FIELD VIS (JUNE INC ALL/SOME SCRN DETERM FOR CONTRAST SENSITIV,VIS UND GLARE) 2005 [facility] SCREENING TEST OF VISUAL ACUITY, QUANTITATIVE, BILATERAL 2005 [facility] INFLUENZA VIRUS VACCINE, TRIVALENT, LIVE (LAIV3), FOR INTRANASAL USE 2004 [facility] SCREENING TEST OF VISUAL ACUITY, QUANTITATIVE, BILATERAL 2003 [facility] Spirometry Spirometry 74520 2013 SARAH JONES [facility] Audiogram (Screening) Audiogram (Screening) 28983 2013 SARAH JONES [facility] Psychometric Neuropsych Testing Battery Admin By Computer Psychometric Neuropsych Testing Battery Admin By Computer 83852 2012 ABHISHEK MAS [facility] Threshold Audiogram (Pure Tone) Threshold Audiogram (Pure Tone) 46862 2012 BEVERLY BATES [facility] Pulmonary Function Tests Pulmonary Function Tests 89919 2012 BEVERLY BATES [facility] IV Infusion For Hydration Each Additional Hour IV Infusion For Hydration Each Additional Hour 02505 2012 DEJA LEOS IV Infusion For Hydration 31 Minutes To 1 Hour IV Infusion For Hydration 31 Minutes To 1 Hour 58675 2012 DEJA LEOS [facility] Intravenous Catheter Placement Intravenous Catheter Placement 50289 2012 DEJA LEOS [facility] Physical Therapy Service Re-Evaluation Physical Therapy Service Re-Evaluation 79911 2011 SUMIT ROSEN [facility] Modalities Heat Hot Packs Modalities Heat Hot Packs 38481 2011 MARCIALLUIS MARCUS [facility] Physical Therapy Neuromuscular Re-education Physical Therapy Neuromuscular Re-education 35037 2011 MARCIALLUIS MARCUS [facility] Physical Therapy: ___ Se ion Segments, 15 Minutes Each Physical Therapy: ___ Session Segments, 15 Minutes Each 67227 2011 MARCIALLUIS MARCUS Modalities Heat Hot Packs Modalities Heat Hot Packs 30064 2011 BRISA GONZALEZ [facility] Physical Therapy Neuromuscular Re-education Physical Therapy Neuromuscular Re-education 70006 2011 BRISA GONZALEZ [facility] Physical Therapy: ___ Se ion Segments, 15 Minutes Each Physical Therapy: ___ Session Segments, 15 Minutes Each 70335 2011 GONZALEZ, BRISA S Do[facility] Modalities Heat Hot Packs Modalities Heat Hot Packs 68389 2011 NATALIIA GUERIN [facility] Physical Therapy Neuromuscular Re-education Physical Therapy Neuromuscular Re-education 37500 2011 NATALIIA GUERIN A [facility] Physical Therapy: ___ Se ion Segments, 15 Minutes Each Physical Therapy: ___ Session Segments, 15 Minutes Each 63087 2011 NATALIIA GUERIN A Do[facility] Modalities Heat Hot Packs Modalities Heat Hot Packs 53345 2011 MARCIAL, LUIS DoD Physical Therapy: ___ Se ion Segments, 15 Minutes Each Physical Therapy: ___ Session Segments, 15 Minutes Each 17389 2011 MARCIAL, LUIS Do[facility] Physical Therapy Neuromuscular Re-education Physical Therapy Neuromuscular Re-education 02733 2011 MARCIAL, LUIS Do[facility] Modalities Heat Hot Packs Modalities Heat Hot Packs 18416 2010 MARCIAL, LUIS Do[facility] Physical Therapy Neuromuscular Re-education Physical Therapy Neuromuscular Re-education 40379 2010 MARCIAL, LUIS DoD Physical Therapy: ___ Se ion Segments, 15 Minutes Each Physical Therapy: ___ Session Segments, 15 Minutes Each 72516 2010 MARCIAL, LUIS DoD Physical Therapy Service Re-Evaluation Physical Therapy Service Re-Evaluation [id number] 2010 SUMIT ROSEN E DoD Physical Therapy Neuromuscular Re-education Physical Therapy Neuromuscular Re-education [id number] 2010 MARCIAL, LUIS DoD Modalities Heat Hot Packs Modalities Heat Hot Packs 88037 2010 MARCIAL, LUIS DoD Physical Therapy: ___ Se ion Segments, 15 Minutes Each Physical Therapy: ___ Session Segments, 15 Minutes Each 97987 2010 MARCIAL, LUIS DoD Modalities Heat Hot Packs Modalities Heat Hot Packs 31668 2010 MARCIAL, LUIS DoD Physical Therapy: ___ Se ion Segments, 15 Minutes Each Physical Therapy: ___ Session Segments, 15 Minutes Each 54042 2010 MARCIAL, LUIS DoD Physical Therapy Neuromuscular Re-education Physical Therapy Neuromuscular Re-education 57222 2010 MARCIAL, LUIS DoD Physical Therapy Neuromuscular Re-education Physical Therapy Neuromuscular Re-education 33859 2010 MARCIAL, LUIS DoD Modalities Heat Hot Packs Modalities Heat Hot Packs 21661 2010 MARCIAL, LUIS DoD Physical Therapy: ___ Se ion Segments, 15 Minutes Each Physical Therapy: ___ Session Segments, 15 Minutes Each 72896 2010 MARCIAL, LUIS DoD Modalities Heat Hot Packs Modalities Heat Hot Packs 94275 2010 BRISA GONZALEZ Physical Therapy Neuromuscular Re-education Physical Therapy Neuromuscular Re-education 63919 2010 BRISA GONZALEZ Physical Therapy: ___ Se ion Segments, 15 Minutes Each Physical Therapy: ___ Session Segments, 15 Minutes Each 06337 2010 BRISA GONZALEZ Pulmonary Function Tests Pulmonary Function Tests 49181 2010 LEIGH TAYLOR Physical Therapy Service Re-Evaluation Physical Therapy Service Re-Evaluation 61828 2010 SUMIT ROSEN DoD Modalities Heat Hot Packs Modalities Heat Hot Packs 58521 2010 BRISA GONZALEZ DoD Modalities Ultrasound Modalities Ultrasound 54606 2010 BRISA GONZALEZ DoD A isted Exercises For ROM Assisted Exercises [place] ROM 83306 2010 BRISA GONZALEZ DoD Modalities Heat Hot Packs Modalities Heat Hot Packs 15037 2010 MARCIAL, LUIS DoD Modalities Ultrasound Modalities Ultrasound 22986 2010 MARCIAL, LUIS DoD A isted Exercises For ROM Assisted Exercises For ROM 76181 2010 MARCIAL, LUIS DoD Modalities Ultrasound Modalities Ultrasound 76453 2010 NATALIIA GUERIN A DoD Modalities Heat Hot Packs Modalities Heat Hot Packs 81283 2010 NATALIIA GUERIN A DoD A isted Exercises For ROM Assisted [place]ises [place] ROM 66508 2010 NATALIIA GUERIN A DoD Modalities Heat Hot Packs Modalities Heat Hot Packs 23255 2010 MARCIAL, LUIS DoD Modalities Ultrasound Modalities Ultrasound 33180 2010 MARCIAL, LUIS DoD A isted Exercises For ROM Assisted Exercises For ROM 16141 2010 MARCIAL, LUIS DoD Physical Therapy Service Evaluation Physical Therapy Service Evaluation 09402 2010 SUMIT ROSEN [facility] Pulmonary Function Tests Pulmonary Function Tests 69183 2009 STERLING GEE [facility] Threshold Audiogram (Pure Tone) Threshold Audiogram (Pure Tone) 30889 2009 STERLING GEE [facility] Audiogram (Screening) Audiogram (Screening) 66045 2009 RAMILA DAMIAN [facility] Non-Physician Phone Call To Patient/Provider Brief (5-10min) Non-Physician Phone Call To Patient/Provider Brief (5-10min) 71534 2009 JNOEL BUSBY [facility] Culture, bacterial, urine; quantitative, sensitivity study 2008 BRISA AHUJA strep swab done [facility] Threshold Audiogram (Pure Tone) Threshold Audiogram (Pure Tone) 19811 2008 JUANJO CLEARY [facility] Threshold Audiogram (Pure Tone) Threshold Audiogram (Pure Tone) 61143 2007 MARYANNE SANTOS Services Provided On An Emergency Basis In The Office 2006 JAIME LAIRD Services Provided On An Emergency Basis In The Office 2006 LATIA CARVAJAL Ophthalmological New Patient Start Intermediate Level Care Ophthalmological New Patient Start Intermediate Level Care 44525 2006 LATIA CARVAJAL Threshold Audiogram (Pure Tone) Threshold Audiogram (Pure Tone) 59338 2006 MARYANNE SANTOS [facility] Threshold Audiogram (Pure Tone) Threshold Audiogram (Pure Tone) 71456 KEKE SNYDER [facility] No data available for this section Ambulato ry Pharmacy Social History Combined list of available smoking, tobacco, and other social history from 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 Social History Type Response Date Comment Sourc e Tobacco smoking status NHIS VA-TOBACCO USE FORMER CIGARETTES [facility] [place] History of tobacco use VA-TOBACCO NEVER USED OTHER TYPE 03/02/2024 [facility] [place] [facility] This section is an empty social history section. [facility] Assessment and Plan Combined list of future care activities from Department of Defense and Veterans Affairs facilities (e.g., assessment and plan notes, appointments, orders, and referrals). Additional future care activities may be listed in the Plan of Care section. Result Assessment and Plan Date Source Assessment and Plan No data available for this section 04/24/2024 Ambulatory Pharmacy Plan of Care List of future care activities from [facility] facilities. Additional future care activities may be listed in the Assessment and Plan section. Date/Time Care Activity Care Activity Detail Facili ty 05/22/2024 AMBULATORY - MEDICINE AMBULATORY - MEDICI [facility] [place] [facility] 05/29/2024 AMBULATORY - MEDICINE AMBULATORY - MEDICI NE [facility] [place] [facility] 03/16/2024 Consult Order COMMUNITY CARE-O RTHO GENERAL Cons Quality Intern's Choice [facility] [place] [facility] 04/09/2024 Consult Order REHAB MEDICINE/N HM OUTPT Cons Quality Intern's Choice [facility] [place] [facility] Functional Status Combined list of recent functional and cognitive assessments recorded at [facility] (PR).VA Functional [place]per Measurement (FIM) Scale: 1 = Total Assistance (Subject = 0% +), 2 = Maximal Assistance (Subject = 25% +), 3 = Moderate Assistance (Subject = 50% +), 4 = Minimal Assistance (Subject = 75% +), 5 = Supervision, 6 = Modified Gosper (Device), 7 = Complete Gosper (Timely, Safely). Assessment Date/Time Source Assessment Type Assessment Skill Assessment Score Assessment Details No data available for this section
--- OUTSIDE RECORDS SUMMARY | 2024-04-24 09:33 | XMS_ITS | Encounter Summary ---
Author Organization [facility] Address [address] [place] [address] Care Team Providers Care Secretary Of State Name Role Phone Elmo Moreno NP Primary [...] (Late Contact Info) Description 04/10/2024 Telephone Neurosurgery [facility] [address] [place] [address] Malena Bergman [place] Appointment (04/07/24 [...] Info) Description 04/28/2024 8:00 AM EDT Appointment [facility] Interventional Radiology [address] [place] [address] documented as of this encounter Visit Diagnoses Not on filedocumented in this encounter Care Teams Secretary Of State Relationship Specialty Start Date End Date Elmo Moreno NP [address] [facility] [place] PCP - General 05/15/22 documented as of this encounter
--- OUTSIDE RECORDS SUMMARY | 2024-04-24 09:33 | XMS_ITS | Encounter Summary ---
Author Organization [facility] Address [address] [place] [address] Care Team Providers Care Gas Line Repairer Name Role Phone Elmo Moreno NP Primary Care Provider + [phone] Reason for Referral * Imaging (Routine) - Closed Specialty Diagnoses / Procedures Referred By Contac t Referred To Contact Radiology Diagnoses Low back pain radiating to right leg Procedures MR Lumbar Spine wo Contrast Mally John PA [address] [place] [address] Phone: tel: fax: Radiology Department [address] Phone: tel: fax: Referral ID Status Reason Start Date Expiration Date Visits Re quested Visits Authorized [id number] Closed 03/20/2024 03/20/2025 1 1 Reason for Visit * Imaging (Routine) - Closed Specialty Diagnoses / Procedures Referred By Contac t Referred To Contact Radiology Diagnoses Low back pain radiating to right leg Procedures MR Lumbar Spine wo Contrast Mally John PA [address] [place] [address], [address] Phone: tel: fax: Radiology Department - [address] Phone: tel: fax: Referral ID Status Reason Start Date Expiration Date Visits Re quested Visits Authorized [id number] Closed 03/20/2024 03/20/2025 1 1 Encounter Details Date Type Department Care Team (Latest Contact Info) Description 03/27/2024 11:30 AM EST - 03/27/2024 11:59 PM EST Hospital Encounter Radiology Department - [address] [address] Low back pain radiating to right leg [...] 25 gauge x 5/8 syringe BD Disp [place] 25G X 5/8 Misc USE DIRECTED WEEKLY [...] Info) Description 04/28/2024 8:00 AM EDT Appointment [facility] Interventional Radiology [address] [place] [phone] documented as of this encounter Procedures Procedure [...] Signed Date: 03/27/2024 15:51 ET Workstation ID: [id number] Transcribed By: Self Edit Transcribed Date: 03/27/2024 [...] Signed Date: 03/27/2024 15:51 ET Workstation ID: [id number] Transcribed By: Self Edit Transcribed Date: 03/27/2024 15:44 ET Mally QUIÑONEZ IMG MRI PROCEDURES Final R esult documented in this encounter Visit Diagnoses Diagnosis Low back pain radiating to right leg Lumbago documented in this encounter Care Teams Gas Line Repairer Relationship Specialty Start Date End Date Elmo Moreno NP [address] [facility] [place], [place] PCP - General 05/15/22 documented as of this encounter
--- OUTSIDE RECORDS SUMMARY | 2024-04-24 09:34 | XMS_ITS | Encounter Summary ---
Author Organization [facility] Address [address] [place] [address] Care Team Providers Care General Office Dispatcher Name Role Phone Elmo Moreno NP Primary Care Provider Encounter Details Date Type Department Care Team ([facility] Contact Info) Description 03/30/2024 Telephone Neurosurgery [facility] [address] [place] [phone] Mally John PA [address], [address] [place] [address] Social History Tobacco Use Types Packs/Day Years [...] Info) Description 04/28/2024 8:00 AM EDT Appointment [facility] Interventional Radiology [address] [place] [address] documented as of this encounter Visit Diagnoses Not on filedocumented in this encounter Care Teams General Office Dispatcher Relationship Specialty Start Date End Date Elmo Moreno NP [address] [place], [place] PCP - General 05/15/22 documented as of this encounter
--- OUTSIDE RECORDS SUMMARY | 2024-04-24 09:34 | XMS_ITS | Clinical Summary ---
Author Organization [facility] Address [address] [place] [address] Care Team Providers Care [place] Program Coordinator Name Role Phone Unavailable Primary Care [...]
--- OUTSIDE RECORDS SUMMARY | 2024-04-24 09:34 | XMS_ITS | Clinical Summary ---
Author Organization [facility] Address [address] [place] [address] Phone Care Team Providers Care Rosin Barrel Filler Name Role Phone Elmo Moreno NP Primary Care Provider Allergies No known active allergies Medications albuterol HFA (PROAIR HFA ; PROVENTIL HFA ; VENTOLIN HFA) 90 mcg/actuation inhaler INHALE 2 PUFFS BY MOUTH EVERY 6 HOURS NEEDED 2 Active syringe with needle, safety 1 mL 25 gauge x 5/8 syringe BD Disp [place] 25G X 5/8 Misc USE DIRECTED WEEKLY [...] Department Care Team Description 04/10/2024 Telephone Neurosurgery [facility] [address] [place] [address] Malena Bergman [place] Appointment (04/07/24 - Per Sue - called patient to schedule SI Joint injection but patient decided to put everything on hold for now due to a possible hernia surgery that he's going to have. ) 03/30/2024 Telephone Neurosurgery [facility] [address] [phone] Mally John PA 03/27/2024 11:30 AM EST - 03/27/2024 11:59 PM EST Hospital Encounter Radiology Department - [address] [address] Low back pain radiating to right leg Discharge Disposition: Home or Self Care 03/20/2024 10:15 AM EST Office Visit Neurosurgery [address] [phone] Mally John PA Sacroiliitis (CMS/HCC) (Primary Dx); Low back pain radiating to right leg 03/13/[address] [phone] [place], [place] from Last 3 Months Immunizations Name Administration [...] Description 04/28/2024 8:[address] [facility] Interventional Radiology [address] [place] [address] Health Maintenance Due Date Last [...] Signed Date: 03/27/2024 15:51 ET Workstation ID: [id number] Transcribed By: Self Edit Transcribed Date: 03/27/2024 [...] Signed Date: 03/27/2024 15:51 ET Workstation ID: [id number] Transcribed By: Self Edit Transcribed Date: 03/27/2024 15:44 ET us Mally QUIÑONEZ IMG MRI PROCEDURES Final R esult from Last 3 Months Insurance [employer] Care Teams Rosin Barrel Filler Relationship Specialty Start Date End Date Elmo Moreno NP [address] [facility] [place] PCP - General 05/15/22
--- OUTSIDE RECORDS SUMMARY | 2024-04-24 09:34 | XMS_ITS | Clinical Summary ---
Author Organization [facility] Address [address] [place] [address] Care Team Providers Care Hand Collator Name Role Phone Elmo Moreno Primary Care Provider [phone] Allergies No known active allergies Medications Medication [...] Advance Directives For more information, please contact: [phone] Latest Code Status on File Code Status Date Activated Date Inactivated Comments Full Code 03/18/2020 12:11 PM 03/18/2020 9:28 PM This c ode status was ascertained in the following way: discussion with patient . Care Teams Hand Collator Relationship Specialty Start Date End Date Elmo Moreno: [phone] [address] [facility] [place] [address] PCP - General Family Medicine 03/07/20
== END 2024-04-24 09:41 | disposition home or self-care (01) ==
PROVIDERS: PCP Nurse Practitioner Family; Visit Provider Surgery
DX: Z09 Encounter for follow-up examination after completed treatment for conditions other than malignant neoplasm (principal)
CPT/HCPCS: 99212

== ENCOUNTER 2024-05-15 10:44 | Outpatient (AMB) | payer OTHER, SELFPAY ==
--- NOTE | 2024-05-15 10:51 | A.OFFVIS_ITS ---
Intake Visit Reasons: Pain in umbilical hernia area Intake Note: Patient scheduled today's appointment c/o pain at surgical site. No longer taking rx pain meds. HX: Open umbilical herniorrhaphy with Bard mesh on 04-14-2024. Textile Technologist Required: No Accompanied by: Self / Same As Patient Allergies No Known Allergies [No Known Allergies*] Allergy (Verified 05/15/24 10:53) HPI Comments Details: Patient was for wound check. He is commencing work next week and was abdomen is some discomfort at the incision site and would like to have this evaluated. He otherwise is doing well. He is tolerating a diet. Having regular bowel habits. He has no GI issues or complaints. [facility] Medical History Tubular adenoma of colon GERD (gastroesophageal reflux disease) Anxiety with depression PTSD (post-traumatic stress disorder) Lumbar stenosis HTN (hypertension) Sleep apnea Hypogonadism in male BPH (benign prostatic hyperplasia) Renal calculi CKD (chronic kidney disease) Right foot pain Surgical History (Updated 05/15/24 @ 10:57 by Jose Briceño MD) Incarcerated umbilical hernia (04/14/24) Status post right rotator cuff repair Status post right foot surgery Family History Father No problems noted. Mother No problems noted. 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 Incision clean dry and intact healing very well. Assessment & Plan Assessment & Plan (1) Encounter for postoperative wound check: Code(s): Z48.89 - Encounter for other specified surgical aftercare Category: Surgical (2) Status post umbilical hernia repair, follow-up exam: Code(s): Z09 - Encounter for follow-up examination after completed treatment for conditions other than malignant neoplasm Category: Surgical Plan Patient is reassured. No evidence of any infection or recurrence. He will commence work next week. Should there be any issues or complaints, he has been instructed to contact the office. Otherwise he will follow up p.r.n.. All questions answered. Coding Level of Care Code Global (29332) Diagnoses Encounter for postoperative wound check Z48.89 Status post umbilical hernia repair, follow-up exam Z09
--- OUTSIDE RECORDS SUMMARY | 2024-05-15 12:07 | XMS_ITS | Continuity of Care Document ---
Author Name [facility] Organization [facility] Care Team Providers Care Soda Worker Name Role Phone [facility] Unavailable Unavailable Problems Combined list of problems from 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 It does not include entries that were removed or entered in error. Problem Status Onset Date Problem Type Date of Resolution Comments Source Anxiety (SCT [id number]) Active Condition [facility] Chronic back pain [facility] Chronic kidney disease stage 3A Active Condition Mar 03 Entered By: EDITH ALEJANDRO Comment: Stage 3a chronic kidney disease 03/02/2021 [facility] Contact dermatitis Active Condition [facility] Degenerative Joint Disease of Shoulder Region (SCT [id number]) Active Condition [facility] Dermatophytosis Active Condition Mar 03, 2024 Entered By: EDITH ALEJANDRO Comment: Dermatophytosis tinea cruris [facility] Erectile Dysfunction (SCT [id number]) Active Condition [facility] GERD - Gastro-Esophageal Reflux Disease (SCT [id number]) Active Condition [facility] Gout Active Condition [facility] Hammer toe Active Condition Mar 03 Entered By: EDITH ALEJANDRO Comment: hammer toe(s) (acquired), right foot [facility] History of nicotine dependence Active Condition [facility] HTN - Hypertension (SCT [id number]) Active Condition [facility] Pain in Lumbar Spine (SCT [id number]) Active Condition [facility] Plantar fasciitis Active Condition 2024 Entered By: EDITH ALEJANDRO Comment: Plantar fasciitis left [facility] Polyp Colon (SCT [id number]) Active Condition [facility] Renal stone Active Condition [facility] Diagnosis: ICD-10-CM Z71.89 Other specified counseling [facility] Diagnosis: ICD-10-CM I10 Essential (primary) hypertension [facility] Medications Combined list of outpatient [...] BY MOUTH ORAL ACTIVE GERARD RODRIGUEZ 2024 [facility] ibuprofen 600 mg [...] Ordered 2021 No Facilit y Access LORAZEPAM 0.5MG TAB TAKE ONE TABLET BY MOUTH ORAL ACTIVE GERARD RODRIGUEZ 2024 [facility] losartan-hy droCHLOROth iazide 100mg-12.5m g [...] Ordered 2021 No Facilit y Access NAPROXEN 500MG TAB TAKE ONE TABLET BY MOUTH ORAL ACTIVE GERARD RODRIGUEZ 2024 [facility] omeprazole 20 mg oral delayed release capsule [...] BREAKFAS T ORAL ACTIVE GERARD RODRIGUEZ 2024 [facility] oxyCODONE 5 [...] (200MG) INTRAMUS CULARLY INTRAM GERARD TAFOYA 2024 [facility] tiZANidine 2 mg oral tablet tiZANidi ne 2 mg oral tablet Start Date: 05/21/20 Status: Ordered Repeat number: 1 Ordered 2021 No Facilit y Access traMADol 50 mg oral tablet traMADol 50 mg oral tablet Start Date: 09/26/20 Status: Ordered Repeat number: 1 Ordered 2021 No Facilit y Access Immunizations Combined list of available immunizations from the 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 Immunization Series Date Given Administered By Site Reaction Lot Number CVX Code Drug Properties Supervisor Status Comments Source ANTHRAX VACCINE, UNSPECIFIED 6 2023 319 complet ed [id number] tetanus, diphtheria, acellular pertu is 2021 [id number] sanofi pasteur complet ed tetanus, diphtheri a, acellular pertussis 04/24/21 Given Ambulat ory Pharmac y TDAP 2 2021 115 complet ed tetanus toxoid, reduced diphtheri a toxoid, and acellular pertussis vaccine, adsorbed Lot#: [id number] Mfr: SANOFI PASTEUR [facility] influenza virus vaccine, inactivated 2020 [id number] Se[employer] complet ed influenza virus vaccine, inactivat ed 01/18/21 Given Ambulat ory Pharmac y COVID Vaccine Moderna 2020 [id number] 207 complet ed COVID Vaccine Moderna 05/25/20 Given Ambulat ory Pharmac y COVID-19 (MODERNA), MRNA, LNP-S, PF, 100 MCG/0.5ML DOSE OR 50 MCG/0.25ML DOSE 2 2020 207 complet ed SARS-COV- 2 (COVID-19 ) vaccine, mRNA, spike protein, LNP, preservat gauri free, 100 mcg or 50 mcg dose Lot#: [id number] Mfr: MODERNA [employer], [employer] [facility] COVID Vaccine Moderna 2020 [id number] 207 complet ed COVID Vaccine Moderna 04/24/20 Given Ambulat ory Pharmac y COVID-19 (MODERNA), MRNA, LNP-S, PF, 100 MCG/0.5ML DOSE OR 50 MCG/0.25ML DOSE 1 2020 207 complet ed SARS-COV- 2 (COVID-19 ) vaccine, mRNA, spike protein, LNP, preservat gauri free, 100 mcg or 50 mcg dose Lot#: [id number] Mfr: [facility] [facility] influenza, injectable, quadrivalent- pf 2019 [id number] 150 [employer] complet ed influenza , injectabl e, quadrival ent-pf 12/31/19 Given Ambulat ory Pharmac y influenza, injectable, quadrivalent- pf 2018 [id number] 150 [employer] complet ed influenza , injectabl e, quadrival ent-pf 11/20/18 Given Ambulat ory Pharmac y influenza, injectable, quadrivalent- pf 2017 150 complet ed influenza , injectabl e, quadrival ent-pf 01/07/18 Given Ambulat ory Pharmac y typhoid Vi capsular polysaccharid e vac 2017 [id number] sanofi pasteur complet ed typhoid Vi capsular polysacch aride vac 06/20/17 Given Ambulat ory Pharmac y TYPHOID, VICPS 2017 101 complet ed typhoid Vi capsular polysacch aride vaccine Lot#: [id number] [facility] influenza, seasonal, injectable 2016 [id number] 141 complet ed influenza , seasonal, injectabl e 12/13/16 Given Ambulat ory Pharmac y influenza, injectable, quadrivalent 2015 [id number] 158 complet ed influenza , injectabl e, quadrival ent 11/11/15 Given Ambulat ory Pharmac y influenza, live, intranasal,qu adrivalent 2014 [id number] [facility] t ed influenza , live, intranasa l,quadriv alent 11/20/14 Given Ambulat ory Pharmac y influenza, live, intranasal,qu adrivalent 2013 [id number] t ed influenza , live, intranasa l,quadriv alent 12/14/13 Given Ambulat ory Pharmac y influenza, live, intranasal,qu adrivalent 2012 [id number] 149 [facility] t ed influenza , live, intranasa l,quadriv alent 10/13/12 Given Ambulat ory Pharmac y typhoid Vi capsular polysaccharid e vac 2012 [id number] sanofi pasteur complet ed typhoid Vi capsular polysacch aride vac 08/16/12 Given Ambulat ory Pharmac y anthrax vaccine 2012 [id number] [employer] complet ed anthrax vaccine 08/16/12 Given Ambulat ory Pharmac y ANTHRAX VACCINE, UNSPECIFIED 7 2012 319 complet ed Lot#: [id number] [facility] influenza virus vaccine, live 2011 [id number] [facility] t ed influenza virus vaccine, live 10/30/11 Given Ambulat ory Pharmac y tetanus, diphtheria, acellular pertu is 2011 [id number] 115 [employer] complet ed tetanus, diphtheri a, acellular pertussis 05/22/11 Given Ambulat ory Pharmac y TDAP 2011 115 complet ed tetanus toxoid, reduced diphtheri a toxoid, and acellular pertussis vaccine, adsorbed Lot#: [id number] A [facility] anthrax vaccine 2011 [id number] [employer] complet ed anthrax vaccine 03/09/11 Given Ambulat ory Pharmac y typhoid Vi capsular polysaccharid e vac 2011 [id number] sanofi pasteur complet ed typhoid Vi capsular polysacch aride vac 03/09/11 Given Ambulat ory Pharmac y ANTHRAX VACCINE, UNSPECIFIED 6 2011 319 complet ed Lot#: [id number] [place] [facility] [place] [facility] [facility] TYPHOID, VICPS 3 2011 101 complet ed typhoid Vi capsular polysacch aride vaccine Lot#: [id number] Mfr: SANOFI PASTEUR [facility] influenza virus vaccine, live 2010 [id number] 111 [employer] [facility] t ed influenza virus vaccine, live 11/04/10 Given Ambulat ory Pharmac y influenza virus vaccine,split 2009 [id number] sanofi pasteur complet ed influenza virus vaccine,s plit 11/04/09 Given Ambulat ory Pharmac y anthrax vaccine 2009 [id number] [employer] complet ed anthrax vaccine 09/04/09 Given Ambulat ory Pharmac y Novel influenza-H1N 1-09,pf,injec table 2009 [id number] 126 Nov[employer]is [employer] ls complet ed Novel influenza -G4V9-94, pf,inject able 02/25/09 Given Ambulat ory Pharmac y influenza virus vaccine, live 2008 [id number] 111 [employer] comple t ed influenza virus vaccine, live 10/26/08 Given Ambulat ory Pharmac y anthrax vaccine 2008 [id number] [employer] complet ed anthrax vaccine 03/27/08 Given Ambulat ory Pharmac y ANTHRAX VACCINE, UNSPECIFIED 5 2008 319 complet ed Lot#: [id number] [facility] influenza virus vaccine,split 2007 [id number] 15 [employer] complet ed influenza virus vaccine,s plit 11/14/07 Given Ambulat ory Pharmac y anthrax vaccine 2007 [id number] [employer] complet ed anthrax vaccine 09/12/07 Given Ambulat ory Pharmac y ANTHRAX VACCINE, UNSPECIFIED 4 2007 319 complet ed Lot#: [id number] [facility] anthrax vaccine 2007 [id number] [employer] complet ed anthrax vaccine 03/30/07 Given Ambulat ory Pharmac y ANTHRAX VACCINE, UNSPECIFIED 3 2007 319 complet ed Lot#: [id number] [facility] anthrax vaccine 2007 [id number] [employer] complet ed anthrax vaccine 03/10/07 Given Ambulat ory Pharmac y ANTHRAX VACCINE, UNSPECIFIED 2 2007 319 complet ed Lot#: [id number] [facility] anthrax vaccine 2007 [id number] [employer] complet ed anthrax vaccine 02/21/07 Given Ambulat ory Pharmac y ANTHRAX VACCINE, UNSPECIFIED 1 2007 319 complet ed Lot#: [id number] [facility] influenza virus vaccine, live 2006 [id number] 111 [employer] [facility] t ed influenza virus vaccine, live 01/10/07 Given Ambulat ory Pharmac y typhoid vaccine, live, oral 2006 [id number] [employer] [place] [employer] [place] complet ed typhoid vaccine, live, oral 03/05/06 Given Ambulat ory Pharmac y influenza virus vaccine, live 2005 [id number] [employer] comple t ed influenza virus vaccine, live 12/04/05 Given Ambulat ory Pharmac y influenza virus vaccine, live 2004 [id number] 111 [employer] comple t ed influenza virus vaccine, live 12/25/04 Given Ambulat ory Pharmac y influenza virus vaccine, live 2004 [id number] 111 [employer] [facility] t ed influenza virus vaccine, live 03/05/04 Given Ambulat ory Pharmac y typhoid Vi capsular polysaccharid e vac 2004 [id number] sanofi pasteur complet ed typhoid Vi capsular polysacch aride vac 03/05/04 Given Ambulat ory Pharmac y hepatitis A-hepatitis B vaccine 2003 [id number] 104 Gl[employer]SmithK[employer] ne complet ed hepatitis A-hepatit is B vaccine 12/07/03 Given Ambulat ory Pharmac y HEP A-HEP B 3 2003 104 complet ed hepatitis A and hepatitis B vaccine Lot#: [id number] hepatitis A-hepatitis B vaccine 2003 [id number] 104 GlaxoSmithKli ne complet ed hepatitis A-hepatit is B vaccine 07/07/03 Given Ambulat ory Pharmac y HEP A-HEP B 2 2003 104 complet ed hepatitis A and hepatitis B vaccine Lot#: [id number] [facility] hepatitis A-hepatitis B vaccine 2003 [id number] 104 GlaxoSmithK[employer] ne complet ed hepatitis A-hepatit is B vaccine 06/06/03 Given Ambulat ory Pharmac y HEP A-HEP B 1 2003 104 complet ed hepatitis A and hepatitis B vaccine Lot#: [id number] [facility] poliovirus vaccine, inactivated 2003 [id number] sanofi pasteur complet ed polioviru s vaccine, inactivat ed 06/01/03 Given Ambulat ory Pharmac y tetanus-dipht h toxoids (Td) adult/adol 2003 [id number] 09 sanofi pasteur complet ed tetanus-d iphth toxoids (Td) adult/ado l 06/01/03 Given Ambulat ory Pharmac y tuberculin purified protein derivative 2003 [id number] 96 sanofi pasteur complet ed tuberculi n purified protein derivativ e 06/01/03 Given Ambulat ory Pharmac y meningococcal polysaccharid e (MPSV4) 2003 [id number] sanofi pasteur complet ed meningoco ccal polysacch aride (MPSV4) 06/01/03 Given Ambulat ory Pharmac y influenza virus vaccine, whole virus 2003 [id number] Nov[employer]is [employer] complet ed influenza virus vaccine, whole virus 06/01/03 Given Ambulat ory Pharmac y MENINGOCOCCAL MPSV4 2003 32 complet ed meningoco ccal polysacch aride vaccine (MPSV4) Lot#: [id number] Mfr: SANOFI PASTEUR [facility] POLIO, UNSPECIFIED FORMULATION 2003 89 complet ed Sanofi Pasteur Lot#: [id number] [facility] TD(ADULT) UNSPECIFIED FORMULATION 2003 139 complet ed tetanus and diphtheri a toxoids, adsorbed, preservat gauri free, for adult use (2 Lf of tetanus toxoid and 2 Lf of diphtheri a toxoid) Lot#: [id number] Mfr: SANUltromex PASTEUR [facility] Vital Signs Combined list of inpatient and [...] ADM Date DC Date Status Disposition Source [facility] Outpatient Encounter [id number] 04/08 [facility] [id number] 05/18 [facility] En[facility] [id number] [facility] Out[facility] Encounter [id number] 03/02 [facility] OFFICE O/P NEW MOD 45 MIN [id number] 1. Diagnos is: ICD-10- CM I10 Essenti al (primar y) hyperte GERARD [employer] 03/02 [facility] Out[facility] En[facility] [id number] [facility] CASE MANAGEMENT [id number] Diagnos is: ICD-10- CM Z71.89 Other specifi ed general counsel JOY Contreras 03/03 [facility] Out[facility] En[facility] [id number] 03/07 [facility] En[facility] [id number] 03/08 [facility] En[facility] [id number] 03/10 [facility] Encounter [id number] 03/10 [facility] Encounter [id number] 03/13 [facility] CASE MANAGEMENT [id number] Diagnos is: ICD-10- CM Z71.89 Other specifi ed general counsel JOY Contreras 03/20 [facility] CASE MANAGEMENT [id number] Diagnos is: ICD-10- CM Z71.89 Other specifi ed general counsel JOY Contreras 03/27 [facility] Outpatient Encounter [id number] 03/27 [facility] Outpatient Encounter [id number] 03/29 [facility] [place] [facility] Procedures Combined list of: 1) Procedures from Department of Veterans Affairs facilities going back up to thelast 18 months, not all [place] non-surgical procedures are included; 2) All procedures from the Department of Defense facilities. Procedure Procedure Type Code Date Perfomer Comments Sourc e No data available for this section Ambulatory P harmacy Social History Combined list of available smoking, tobacco, and other social history from 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 Social History Type Response Date Comment Sourc e Tobacco smoking status NHIS VA-TOBACCO USE FORMER CIGARETTES 03/02/2024 [facility] [place] [facility] History of tobacco use VA-TOBACCO NEVER USED OTHER TYPE 03/02/2024 [facility] [place] [facility] Assessment and Plan Combined list of future care activities from Department of Defense and Veterans Affairs facilities (e.g., assessment and plan notes, appointments, orders, and referrals). Additional future care activities may be listed in the Plan of Care section. Result Assessment and Plan Date Source Assessment and Plan No data available for this section 05/15/2024 Ambulatory Pharmacy Plan of Care List of future care activities from Department of Veterans Affairs facilities. Additional future care activities may be listed in the Assessment and Plan section. Date/Time Care Activity Care Activity Detail Facili ty 05/22/2024 AMBULATORY - MEDICINE AMBULATORY - [facility]ICI [facility] Functional Status Combined list of recent functional and cognitive assessments recorded at Department of Defense and Veterans Affairs ([facility]).VA Functional Conway Measurement (FIM) Scale: 1 = Total Assistance (Subject = 0% +), 2 = Maximal Assistance (Subject = 25% +), 3 = Moderate Assistance (Subject = 50% +), 4 = Minimal Assistance (Subject = 75% +), 5 = Supervision, 6 = Modified Conway (Device), 7 = Complete Conway (Timely, Safely). Assessment Date/Time Source Assessment Type Assessment Skill Assessment Score Assessment Details No data available for this section
--- OUTSIDE RECORDS SUMMARY | 2024-05-15 12:07 | XMS_ITS | Clinical Summary ---
Author Organization [facility] Address [address] [place] [address] Care Team Providers Care Slack Line Yarder Name Role Phone Elmo Moreno Primary Care Provider Allergies No known active [...] Advance Directives For more information, please contact: [phone] Latest Code Status on File Code Status Date Activated Date Inactivated Comments Full Code 03/18/2020 12:11 PM 03/18/2020 9:28 PM This c ode status was ascertained in the following way: discussion with patient . Care Teams Slack Line Yarder Relationship Specialty Start Date End Date Elmo Moreno: [phone] [address] [facility] [place] [address] PCP - General Family Medicine 03/07/20
--- OUTSIDE RECORDS SUMMARY | 2024-05-15 12:07 | XMS_ITS | Clinical Summary ---
Author Organization [address] [facility] Address [address] [place] [address] Phone Care Team Providers Care Dry Clipper Tender Name Role Phone Juanlily Elmo Curry NP Primary Care Provider Allergies No known active allergies Medications syringe with needle, safety 1 mL 25 gauge x 5/8 syringe BD Disp [place] 25G X 5/8 Misc USE DIRECTED WEEKLY FOR TESTOSTERONE SUBCUTANEOUS INJECTION 07/27/19 23 Active syringe, disposable, 1 mL (BD LUER-SHRUTHI SYRINGE MISC) B-D SYRINGE LUER-SHRUTHI 1CC 1 ML Misc USE DIRECTED WITH TESTOSTERONE INJECTION WEEKLY 07/23/19 22 Active losartan-hydr oCHLOROthiazi de (HYZAAR) 100-12.5 mg per tablet Take 1 Tablet by mouth. 07/30/19 22 Active testosterone cypionate (DEPO-TESTOTE XIAO) 200 mg/mL injection INJECT 0.4 ML SUBCUTANEOUSLY EVERY WEEK FOR 4 WEEKS 07/27/19 22 Active omeprazole (PriLOSEC) [address] capsule 02/23/19 25 Active tadalafiL (CIALIS) 20 mg tablet TAKE 1 TABLET NEEDED FOR SEXUAL ACTIVITY 03/09/19 25 Active lidocaine (LIDODERM) 5 % patch Apply topically 1 (one) time each day. Remove & discard patch within 12 hours or as directed by . 30 patch 1 03/20/19 25 Active naproxen (NAPROSYN) 500 mg tablet Take 1 tablet (500 mg total) by mouth 1 (one) time each day. Active albuterol HFA (PROAIR HFA ; PROVENTIL HFA ; VENTOLIN HFA) 90 mcg/actuation inhaler INHALE 2 PUFFS BY MOUTH EVERY 6 HOURS NEEDED 05/26/19 22 2024 Discontinued Active Problems Problem Noted Date [...] Encounters Date Type Department Care Team Description 04/28/2024 7:05 AM EDT - 04/28/2024 11:59 PM EDT Hospital Encounter [facility] Interventional Radiology [address] [place] [phone] Sacroiliitis (CMS/HCC) Discharge Disposition: Home or Self Care 04/10/2024 Telephone Neurosurgery [facility] [address] [phone] Malena Bergman MA Appointment (04/07/24 - Per Sue - called patient to schedule SI Joint injection but patient decided to put everything on hold for now due to a possible hernia surgery that he's going to have. ) 03/30/2024 Telephone Neurosurgery [address] [phone] Mally John PA 03/27/2024 11:30 AM EST - 03/27/2024 11:59 PM EST Hospital Encounter Radiology Department - [address] [phone] Low back pain radiating to right leg Discharge Disposition: Home or Self Care 03/20/2024 10:15 AM EST Office Visit Neurosurgery [address] [phone] Mally John PA Sacroiliitis (CMS/HCC) (Primary Dx); Low back pain radiating to right leg 03/13/[address] [phone] Allison Euceda MA from Last 3 Months [...] Value Date Recorded Sex Assigned at Male 04/27/2024 8:46 AM EDT Legal Sex Male 7:57 PM EST Gender Identity Male 04/27/2024 8:46 AM EDT Sexual Orientation Straight 04/28/2024 7: 04 AM EDT Obstetrics History Last Filed Vital Signs Vital Sign Reading Time Taken Comments Blood Pressure 161/105 04/28/2024 9:30 AM EDT Pulse 93 04/28/2024 9:30 AM EDT Temperature 37.6 ??C (99.6 ??F) 04/28/2024 7:33 AM ED T Respiratory Rate 16 04/28/2024 9:27 AM EDT Oxygen Saturation 94% 04/28/2024 9:30 AM EDT Inhaled Oxygen Concentration - - Weight 104 kg (230 lb) 04/28/2024 7:09 AM EDT Height 177.8 cm (5' 10 ) 04/28/2024 7:09 AM EDT Body Mass Index 33 04/28/2024 7:09 AM EDT Plan of Treatment Health Maintenance Due [...] Procedure Name Priority Date/Time Associated Diagnosis Comments IR INJ ANES/STEROID NERVE SACROILIAC JOINT RIGHT Routine 04/28/2024 9:07 AM EDT Sacroiliitis (CMS/HCC) MR LUMBAR SPINE WO CONTRAST Routine 03/27/2024 12:14 PM EST Low back pain radiating to right leg from Last 3 Months Results * IR Inj Anes/Steroid Nerve Sacroiliac Joint Right (04/28/2024 9:07 AM EDT) Anatomical Region Laterality Modality Right Interventional R adiology 04/28/2024 10:1 7 AM EDT Impressions 04/28/2024 10:[address]-guided SI joint injection. -------- FINAL REPORT -------- Dictated By: Jessy Palma Dictated Date: 04/28/2024 10:17 ET Assigned Physician: Jessy Palma Reviewed and Electronically Signed By: Jessy Palma Signed Date: 04/28/2024 10:20 ET Workstation ID: [id number] Transcribed By: Self Edit Transcribed Date: 04/28/2024 10:17 ET Narrative 04/28/2024 10:20 AM EDT INDICATION: Right sacroiliitis PROCEDURE: Right CT-guided SI joint injection under conscious sedation prior relevant studies: October 04, 2023 MEDICATIONS: Local anesthesia: 5 cc of 1% buffered lidocaine administered subcutaneously. 5 mL of bupivacaine administered. Sedation: Moderate intravenous sedation was initiated and maintained for 15 minutes while the patient was independently monitored by the radiology nurse under the supervision of the interventional radiologist. A total of 2 mg of Versed and 75 mcg of fentanyl administered during the procedure. Other: 80 mg of Depot Medrol mixed with 2 mL of bupivacaine Scanner: Intransa speed 16 slice VCT Dose reduction technique: ASIR (Adaptive statistical iterative reconstruction) and/or AEC (automated exposure control) Dose: total exam DLP 172 mGY per cm ? TECHNIQUE: Informed consent obtained. Patient placed prone on the CAT scan table and multiple axial images obtained of the pelvis for localization. After localization the site was draped and prepped sterilely. Timeout performed followed by administration of local anesthetic. Under CT fluoroscopic guidance a 22-gauge needle was advanced into the posterior aspect of the inferior SI joint. FINDINGS: Initial axial images obtained for localization. CT fluoroscopic images confirm needle positioning within the posterior aspect of the localized joint. Procedure Note Jessy Palma MD - 04/28/2024 INDICATION: Right sacroiliitis PROCEDURE: Right CT-guided SI joint injection under conscious sedation prior relevant studies: October 04, 2023 MEDICATIONS: Local anesthesia: 5 cc of 1% buffered lidocaine administeredsubcutaneously. 5 mL of bupivacaine administered. Sedation: Moderate intravenous sedation was initiated and maintained for15 minutes while the patient was independently monitored by the radiologynurse under the supervision of the interventional radiologist. A total of2 mg of Versed and 75 mcg of fentanyl administered during the procedure. Other: 80 mg of Depot Medrol mixed with 2 mL of bupivacaine Scanner: Intransa speed 16 slice VCT Dose reduction technique: ASIR (Adaptive statistical iterativereconstruction) and/or AEC (automated exposure control) Dose: total exam DLP 172 mGY per cm TECHNIQUE: Informed consent obtained. Patient placed prone on the CAT scantable and multiple axial images obtained of the pelvis for localization.After localization the site was draped and prepped sterilely. Timeoutperformed followed by administration of local anesthetic. Under CTfluoroscopic guidance a 22-gauge needle was advanced into the posterioraspect of the inferior SI joint. FINDINGS: Initial axial images obtained for localization. CT fluoroscopicimages confirm needle positioning within the posterior aspect of thelocalized joint. IMPRESSION: Right CT-guided SI joint injection. -------- FINAL REPORT -------- Dictated By: Jessy Palma Dictated Date: 04/28/2024 10:17 ET Assigned Physician: Jessy Palma Reviewed and Electronically Signed By: Jessy Palma Signed Date: 04/28/2024 10:20 ET Workstation ID: [id number] Transcribed By: Self Edit Transcribed Date: 04/28/2024 10:17 ET Mally QUIÑONEZ IMG IR PROCEDURES Final Re sult * MR Lumbar Spine wo Contrast (03/27/2024 12:14 PM EST) Anatomical Region Laterality Modality L-spine, Spine Magnetic Resonan ce 03/27/2024 3:44 PM EST Narrative 03/27/2024 3:51 PM EST MRI of the lumbar spine without intravenous contrast. History right low back posterior neck pain. Examination was performed on 1.5 [place] magnet without administration of intravenous contrast. Comparison [...] Signed Date: 03/27/2024 15:51 ET Workstation ID: [id number] Transcribed By: Self Edit Transcribed Date: 03/27/2024 [...] Signed Date: 03/27/2024 15:51 ET Workstation ID: [id number] Transcribed By: Self Edit Transcribed Date: 03/27/2024 15:44 ET us Mally QUIÑONEZ IMG MRI PROCEDURES Final R esult from Last 3 Months Insurance [employer] Care Teams Dry Clipper Tender Relationship Specialty Start Date End Date Elmo Moreno NP [address] [facility] AQUILES Cai PCP - General 05/15/22
--- OUTSIDE RECORDS SUMMARY | 2024-05-15 12:07 | XMS_ITS | Encounter Summary ---
Author Name [facility] [facility] [place] [facility] [place] Address [address] [place] [id number] Care Team Providers Care Can Top Setter Name Role Phone ELENA RODRIGUEZ Primary Care [...] PRESCRIPT ION RX Feb 15, 2022 THPRX [id number] USMANGUY NICHOLS PATIENT [employer] HARVEY Gutierrez June 22, 2023 [id number] USMAN,GUY AVENDAÑO PATIENT Selected Encounter This section includes the information on record at [place] for the Encounter. Date/Time Encounter Type Encounter Description Reason Provider Source Mar 20, 2024 03:06 PM CASE MANAGEMENT ADMIN PAT ACTIVTIES (MASNONCT) ICD-10-CM Z71.89 Other specified counseling JOY ISLAS [facility] Encounter Template Text not used by [place] Assessments - Encounter Diagnoses This section includes the primary and secondary diagnoses documented for the Encounter. Date/Time Primary/Secondary Diagnosis Diagnosis Name Provider Source Mar 20, 2024 03:06 PM PRIMARY Other specified counseling JOY ISLAS [facility] Plan of Treatment: Future Appointments (+ 6 months) and Future Tests (+/- 45 days) The Plan of Treatment section includes future care activities for the patient from all [place] treatmentfacilities. This section includes future appointments and future orders which are active, pending or scheduled. Future Appointments This section includes appointments that were scheduled to occur 6 months from the date of the Encounter, up to a maximum of 20 appointments. The data comes from all [facility] facilities. Appointment Date/Time Appointment Type Appointme nt Facility Name Mar 27, 2024 02:45 PM [facility]BULATORY [facility] May 22, 2024 02[facility]00 PM [facility] - MEDICINE [facility] May 29, 2024 10:30 AM AMBULATORY - MEDICINE [facility] Active, Pending, and Scheduled Orders This section includes a listing of several types of active, pending, and scheduled orders, including clinic medications orders, diagnostic test orders, procedure orders and consult orders; where the start date of the order is 45 days before the date of the Encounter or 45 days after the date of theEncounter. The data comes from all [facility]. Test Date/Time Test Type Test Details Facility Name Mar 16, 2024 10:01 AM Consult Order [facility] Cons Assembly Line Leader[facility] Apr 09, 2024 07:35 AM Consult Order REHAB MEDI CINE/[facility] OUTPT Cons Assembly Line Leader's Choice [facility] Social History: Smoking Status (Most current) and Tobacco Use (All prior to encounter date) This section includes the most current, and the historical, smoking and tobacco- related health factors from the [place] facility where the Encounter took place. Current Smoking Status This section includes the most current smoking, or tobacco-related health factor, from the [place] facility where the Encounter took place. Date/Time Current Smoking Status Comment Lukasz parikh Mar 02, 2024 03:30 PM VA-TOBACCO USE FOR SUNG CIGARETTES [facility] Tobacco Use History This section includes a history of the smoking, or tobacco-related health factors, that were collected on or before the date of the Encounter. The data comes from the [place] facility where the Encounter took place. Date/Time Smoking Status/Tobacco Use Comment F tess Mar 02, 2024 03:30 PM VA-TOBACCO USE FOR SUNG CIGARETTES [facility] Encounter Notes: All associated encounter notes This section contains the clinical notes associated to the Encounter. Date/Time Encounter Note(s) Provider Source Mar 20, 2024 03:06 PM OEF/OIF NOTE: LOCAL TITLE: OEF/OIF TRANSITION PATIENT ADVOCATE NOTE - TELEPHON STANDARD TITLE: OEF/OIF NOTE DATE OF NOTE: MAR 20, 2024@15:06 ENTRY DATE: MAR 20, 2024@15:06:50 AUTHOR: JOY ISLAS EXP COSIGNER: MODESTO CHAVEZ URGENCY: STATUS: COMPLETED NOTE: The OEF/OIF/OND Transition Patient Advocate (TPA) is a non-clinical member of the OEF/OIF/OND Care Management Team. Type of Contact: Phone call Contact was with: Assistance with VA claim(s) application and/or status of current claim(s) TW called this because he sent me an email asking to speak. I called him and we disccused being able to meet in person to discuss his service connection disability and [place] [employer] ([employer]). [place] states that he has a job at [email or web address] but with his injuries he doesnt think he will be able to work that much longer and wants to explore other options incase he can no longer work anymore. The has Mondays off so TW decided to set up an appointment on WednesdayMarch 27 @ 10am. /abisai/ JOY ISLAS Transitional Patient Advocate Signed: 03/20/2024 15:30 /abisai/ AD [employer] LICENSED CLINICAL SEAFOOD HARVESTER Cosigned: 03/21/2024 14:33 JOY ISLAS [place] [facility]L [facility]
--- OUTSIDE RECORDS SUMMARY | 2024-05-15 12:07 | XMS_ITS | Clinical Summary ---
Author Organization [facility] Facility Address [address] [place] [address] Care Team Providers Care Tack Welder Name Role Phone Unavailable Primary Care Provider [...]
--- OUTSIDE RECORDS SUMMARY | 2024-05-15 12:07 | XMS_ITS | Encounter Summary ---
Author Name [facility] [place] [place] Organization [facility] [place] Address [address] [place] [id number] Care Team Providers Care Composer Teaching Artist Name Role Phone ELENA RODRIGUEZ Primary Care [...] PRESCRIPT ION RX Feb 15, 2022 THPRX [id number] 52 USMANGUY NICHOLS PATIENT [employer] HARVEY Gutierrez June 22, 2023 [id number] USMANGUY GARCIAM PATIENT Selected Encounter This section includes the information on record at [place] for the Encounter. Date/Time Encounter Type Encounter Description Reason Provider Source Mar 27, 2024 01:54 PM CASE MANAGEMENT ADMIN PAT ACTIVTIES (MASNONCT) ICD-10-CM Z71.89 Other specified counseling JOY ISLAS [facility] Encounter Template Text not used by [place] Assessments - Encounter Diagnoses This section includes the primary and secondary diagnoses documented for the Encounter. Date/Time Primary/Secondary Diagnosis Diagnosis Name Provider Source Mar 27, 2024 01:54 PM PRIMARY Other specified counseling JOY ISLAS [facility] Plan of Treatment: Future Appointments (+ 6 months) and Future Tests (+/- 45 days) The Plan of Treatment section includes future care activities for the patient from all [place] treatmentfacilities. This section includes future appointments and future orders which are active, pending or scheduled. Future Appointments This section includes appointments that were scheduled to occur 6 months from the date of the Encounter, up to a maximum of 20 appointments. The data comes from all [facility]. Appointment Date/Time Appointment Type Appointme nt Facility Name May 22, 2024 02:00 PM AMBULATORY - MEDICINE [facility] May 29, 2024 10:30 AM AMBULATORY - MEDICINE [facility] Active, Pending, and Scheduled Orders This section includes a listing of several types of active, pending, and scheduled orders, including clinic medications orders, diagnostic test orders, procedure orders and consult orders; where the start date of the order is 45 days before the date of the Encounter or 45 days after the date of theEncounter. The data comes from all [facility]. Test Date/Time Test Type Test Details Facility Name Mar 16, 2024 10:01 AM Consult Order [facility] Cons Electrical Assemblies Supervisor's Choice [facility] Apr 09, 2024 07:35 AM Consult Order [facility]AB MEDI [facility] OUT[facility] Cons Electrical Assemblies Supervisors [facility] Social History: Smoking Status (Most current) and Tobacco Use (All prior to encounter date) This section includes the most current, and the historical, smoking and tobacco- related health factors from the [place] facility where the Encounter took place. Current Smoking Status This section includes the most current smoking, or tobacco-related health factor, from the [place] facility where the Encounter took place. Date/Time Current Smoking Status Comment Lukasz parikh Mar 02, 2024 03:30 PM VA-TOBACCO USE FOR SUNG CIGARETTES [facility] Tobacco Use History This section includes a history of the smoking, or tobacco-related health factors, that were collected on or before the date of the Encounter. The data comes from the [place] facility where the Encounter took place. Date/Time Smoking Status/Tobacco Use Comment Farhan pulido Mar 02, 2024 03:30 PM VA-TOBACCO USE FOR SUNG CIGARETTES [facility] Encounter Notes: All associated encounter notes This section contains the clinical notes associated to the Encounter. Date/Time Encounter Note(s) Provider Source Mar 27, 2024 01:54 PM OEF/OIF NOTE: LOCAL TITLE: OEF/OIF TRANSITION PATIENT ADVOCATE NOTE FACE TO STANDARD TITLE: OEF/OIF NOTE DATE OF NOTE: MAR 27, 2024@13:54 ENTRY DATE: MAR 27, 2024@13:54:24 AUTHOR: JOY ISLAS COSIGNER: MODESTO CHAVEZ URGENCY: STATUS: COMPLETED NOTE: The OEF/OIF/OND Transition Patient Advocate (TPA) is a non-clinical member of the OEF/OIF/OND Care Management Team. Type of Contact: Office visit Contact was with: [place] Goals: Assistance with VA claim(s) application and/or status of current claim(s) [place] came in today for a scheduled visit to discuss the his service connection disability claim. is a retired [employer] who works at [employer] but is on medical leave due to a possible surgery he needs. [place] is 90% [place] at the moment and [...] 03/27/2024 14:14 /abisai/ AD [employer] LICENSED CLINICAL CERTIFIED HYPERBARIC TECHNOLOGIST Cosigned: 03/28/2024 12:49 JOY ISLAS [place] CNTRL [facility] [[email or web address]
== END 2024-05-15 10:54 | disposition home or self-care (01) ==
PROVIDERS: PCP Nurse Practitioner Family; Referring Provider Surgery; Visit Provider Surgery
DX: K43.2 Incisional hernia without obstruction or gangrene (principal); Z09 Encounter for follow-up examination after completed treatment for conditions other than malignant neoplasm
CPT/HCPCS: 99212

== ENCOUNTER → 2024-05-15 10:44 | Outpatient (BNVA) | payer OTHER, SELFPAY | PROVIDERS: PCP Nurse Practitioner Family; Visit Provider Surgery | DX: S43.439A Superior glenoid labrum lesion of unspecified shoulder, initial encounter (principal); X58.XXXA Exposure to other specified factors, initial encounter; Y93.9 Activity, unspecified; Y92.9 Unspecified place or not applicable; Y99.9 Unspecified external cause status | CPT/HCPCS: 99212 ==

== ENCOUNTER 2024-05-15 15:28 | Outpatient (AMB) | payer OTHER, SELFPAY ==
--- NOTE | 2024-05-15 15:29 | A.OFFVIS_ITS ---
Intake Visit Reasons: Tel- L Shoulder MRI review Intake Note: Gerard is a 43 year old right hand dominant male who presents today for a telehealth visit via telephone for his MRI results of his left shoulder. Lt Shoulder MRI wo con 04/25/24: IMPRESSION: 1. No rotator cuff tear. 2. Posterior labral tearing. 3. Mild acromioclavicular and glenohumeral joint osteoarthritis. 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 Lt Shoulder MRI wo con 04/25/24: IMPRESSION: 1. No rotator cuff tear. 2. Posterior labral tearing. 3. Mild acromioclavicular and glenohumeral joint osteoarthritis. [facility] Medical History (Updated 05/15/24 @ 16:53 by KHANG Rodas) Tubular adenoma of colon GERD (gastroesophageal reflux disease) Anxiety with depression PTSD (post-traumatic stress disorder) Lumbar stenosis HTN (hypertension) Sleep apnea Hypogonadism in male BPH (benign prostatic hyperplasia) Renal calculi CKD (chronic kidney disease) Right foot pain Surgical History (Updated 05/15/24 @ 10:57 by Jose Briceño MD) Incarcerated umbilical hernia (04/14/24) Status post right rotator cuff repair Status post right foot surgery Family History Father No problems noted. Mother No problems noted. 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 Cognitive needs: No Hearing needs: No Vision needs: No Telehealth Telehealth Telehealth Platform: Telephone Location of provider rendering services: practice address Location of patient: address on file Patient Identification confirmed using: Name, : Yes Telehealth method: voice only Patient verbally consented to treatment: Yes Patient verbally consented to billing insurance company: Yes Patient informed of any privacy concerns related to visit: Yes Minutes spent on Phone/Video with Pt.: 10 Assessment & Plan Assessment & Plan (1) Glenoid labrum tear: Code(s): S43.439A - Superior glenoid labrum lesion of unspecified shoulder, initial encounter Category: Medical Plan 1. Posterior labrum tear of left shoulder Case was discussed with Dr. Monson, and a collaborative treatment plan was formed: At this time, due to the fact that the patient has undergone physical therapy several times left shoulder without any improvement, both Dr. Monson and myself feel it was best for him to see Dr. Monson in the office for discussion of potential surgical intervention Patient was amenable to this plan Patient will follow-up for next available appointment with Dr. Monson, sooner any acute concerns Coding Level of Care Code Tele Est Pt Level 3 (08183) Diagnoses Glenoid labrum tear S43.439A
--- OUTSIDE RECORDS SUMMARY | 2024-05-15 17:27 | XMS_ITS | Continuity of Care Document ---
Author Name [facility] Organization [facility] Care Team Providers Care Clinical Technologist Name Role Phone [facility] Unavailable Unavailable Problems Combined list of problems from 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 It does not include entries that were removed or entered in error. Problem Status Onset Date Problem Type Date of Resolution Comments Source Anxiety (SCT [id number]) Active Condition [facility] Chronic back pain [facility] Condition [facility] Chronic kidney disease stage 3A Active Condition Mar 03 Entered By: EDITH ALEJANDRO Comment: Stage 3a chronic kidney disease 03/02/2021 [facility] Contact dermatitis Active Condition [facility] Degenerative Joint Disease of Shoulder Region (SCT [id number]) Active Condition [facility] Dermatophytosis Active Condition Mar 03, 2024 Entered By: EDITH ALEJANDRO Comment: Dermatophytosis tinea cruris [facility] Erectile Dysfunction (SCT 821861591) Active Condition [facility] GERD - Gastro-Esophageal Reflux Disease (SCT [id number]) Active Condition [facility] Gout Active Condition [facility] Hammer toe Active Condition Mar 03 Entered By: EDITH ALEJANDRO Comment: hammer toe(s) (acquired), right foot [facility] History of nicotine dependence Active Condition [facility] HTN - Hypertension (SCT 49012760) Active Condition [facility] Pain in Lumbar Spine (SCT 430767735) Active Condition [facility] Plantar fasciitis Active Condition 2024 Entered By: EDITH ALEJANDRO Comment: Plantar fasciitis left [facility] Polyp Colon (SCT 42571796) Active Condition [facility] Renal stone Active Condition [facility] Diagnosis: ICD-10-CM Z71.89 Other specified counseling [facility] Diagnosis: ICD-10-CM I10 Essential (primary) hypertension Active Diagnosis [facility] Medications Combined list of outpatient medications from [...] MOUTH ORAL ACTIVE GERARD RODRIGUEZ 2024 [facility] ibuprofen 600 [...] BY MOUTH ORAL ACTIVE GERARD RODRIGUEZ 2024 [facility] losartan-hy droCHLOROth iazide 100mg-12.5m [...] BY MOUTH ORAL ACTIVE GERARD RODRIGUEZ [facility]24 [facility] omeprazole 20 [...] (200MG) INTRAMUS CULARLY INTRAM GERARD TAFOYA 2024 [facility] tiZANidine 2 mg oral tablet tiZANidi ne [...] Site Reaction Lot Number CVX Code Drug Longwall Headgate Operator Status Comments Source ANTHRAX VACCINE, UNSPECIFIED 6 2023 319 complet ed Lot#: [id number] [facility] tetanus, diphtheria, acellular pertu is 2021 [id number] sanofi pasteur complet ed tetanus, diphtheri a, acellular pertussis 04/24/21 Given Ambulat ory Pharmac y TDAP 2 2021 115 complet ed tetanus toxoid, reduced diphtheri a toxoid, and acellular pertussis vaccine, adsorbed Lot#: [id number] Mfr: SANOFI PASTEUR [facility] influenza virus vaccine, inactivated 2020 [id number] Seq[employer] complet ed influenza virus vaccine, inactivat ed 01/18/21 Given Ambulat ory Pharmac y COVID Vaccine Moderna 2020 [id number] complet ed COVID Vaccine Moderna 05/25/20 Given Ambulat ory Pharmac y COVID-19 (MODERNA), MRNA, LNP-S, PF, 100 MCG/0.5ML DOSE OR 50 MCG/0.25ML DOSE 2 2020 207 complet ed SARS-COV- 2 (COVID-19 ) vaccine, mRNA, spike protein, LNP, preservat gauri free, 100 mcg or 50 mcg dose Lot#: [id number] Mfr: MODERNA COVEGA, Lipperhey. [facility] COVID Vaccine Moderna 2020 [id number] 207 complet ed COVID Vaccine Moderna 04/24/20 Given Ambulat ory Pharmac y COVID-19 (MODERNA), MRNA, LNP-S, PF, 100 MCG/0.5ML DOSE OR 50 MCG/0.25ML DOSE 1 2020 207 complet ed SARS-COV- 2 (COVID-19 ) vaccine, mRNA, spike protein, LNP, preservat gauri free, 100 mcg or 50 mcg dose Lot#: [id number] Mfr: KimbleA COVEGA, [facility] influenza, injectable, quadrivalent- pf 2019 [id number] 150 Seqirus complet ed influenza , injectabl e, quadrival ent-pf 12/31/19 Given Ambulat ory Pharmac y influenza, injectable, quadrivalent- pf 2018 [id number] 150 Seqirus complet ed influenza , injectabl e, quadrival ent-pf 11/20/18 Given Ambulat ory Pharmac y influenza, injectable, quadrivalent- pf 2017 150 complet ed influenza , injectabl e, quadrival ent-pf 01/07/18 Given Ambulat ory Pharmac y typhoid Vi capsular polysaccharid e vac 2017 [id number] sanofi pasteur complet ed typhoid Vi capsular polysacch aride vac 06/20/17 Given Ambulat ory Pharmac y TYPHOID, VICPS 2017 101 complet ed typhoid Vi capsular polysacch aride vaccine Lot#: [id number] Mfr: [facility] influenza, seasonal, injectable 2016 [id number] 141 complet ed influenza , seasonal, injectabl e 12/13/16 Given Ambulat ory Pharmac y influenza, injectable, quadrivalent 2015 [id number] 158 complet ed influenza , injectabl e, quadrival ent 11/11/15 Given Ambulat ory Pharmac y influenza, live, intranasal,qu adrivalent 2014 [id number] [facility] t ed influenza , live, intranasa l,quadriv alent 11/20/14 Given Ambulat ory Pharmac y influenza, live, intranasal,qu adrivalent 2013 [id number] 149 [facility] t ed influenza , live, intranasa l,quadriv alent 12/14/13 Given Ambulat ory Pharmac y influenza, live, intranasal,qu adrivalent 2012 [id number] [facility] t ed influenza , live, intranasa l,quadriv alent 10/13/12 Given Ambulat ory Pharmac y typhoid Vi capsular polysaccharid e vac 2012 [id number] sanofi pasteur complet ed typhoid Vi capsular polysacch aride vac 08/16/12 Given Ambulat ory Pharmac y anthrax vaccine 2012 [id number] [employer] complet ed anthrax vaccine 08/16/12 Given Ambulat ory Pharmac y ANTHRAX VACCINE, UNSPECIFIED 7 2012 319 complet ed Lot#: [id number] [facility] influenza virus vaccine, live 2011 [id number] [facility] t ed influenza virus vaccine, live 10/30/11 Given Ambulat ory Pharmac y tetanus, diphtheria, acellular pertu is 2011 [id number] 115 [employer] ne complet ed tetanus, diphtheri a, acellular pertussis 05/22/11 Given Ambulat ory Pharmac y TDAP 2011 115 complet ed tetanus toxoid, reduced diphtheri a toxoid, and acellular pertussis vaccine, adsorbed Lot#: [id number] [facility] anthrax vaccine 2011 [id number] [employer] complet ed anthrax vaccine 03/09/11 Given Ambulat ory Pharmac y typhoid Vi capsular polysaccharid e vac 2011 [id number] sanofi pasteur complet ed typhoid Vi capsular polysacch aride vac 03/09/11 Given Ambulat ory Pharmac y ANTHRAX VACCINE, UNSPECIFIED 6 2011 319 complet ed Lot#: [id number] [facility] TYPHOID, VICPS 3 2011 101 complet ed typhoid Vi capsular polysacch aride vaccine Lot#: [id number] Mfr: SANOFI PASTEUR [facility] influenza virus vaccine, live 2010 [id number] [employer] [facility] t ed influenza virus vaccine, live 11/04/10 Given Ambulat ory Pharmac y influenza virus vaccine,split 2009 [id number] sanofi pasteur complet ed influenza virus vaccine,s plit 11/04/09 Given Ambulat ory Pharmac y anthrax vaccine 2009 [id number] [employer] complet ed anthrax vaccine 09/04/09 Given Ambulat ory Pharmac y Novel influenza-H1N 1-09,pf,injec table 2009 [id number] 126 Novartis Pharmaceutica ls complet ed Novel influenza [id number], pf,inject able 02/25/09 Given Ambulat ory Pharmac y influenza virus vaccine, live 2008 [id number] 111 [employer] comple t ed influenza virus vaccine, live 10/26/08 Given Ambulat ory Pharmac y anthrax vaccine 2008 [id number] [employer] complet ed anthrax vaccine 03/27/08 Given Ambulat ory Pharmac y ANTHRAX VACCINE, UNSPECIFIED 5 2008 319 complet ed Lot#: [id number] [facility] influenza virus vaccine,split 2007 [id number] 15 [employer] complet ed influenza virus vaccine,s plit 11/14/07 Given Ambulat ory Pharmac y anthrax vaccine 2007 [id number] [employer] complet ed anthrax vaccine 09/12/07 Given Ambulat ory Pharmac y ANTHRAX VACCINE, UNSPECIFIED 4 2007 319 complet ed Lot#: [id number] [facility] anthrax vaccine 2007 [id number] [employer] complet ed anthrax vaccine 03/30/07 Given Ambulat ory Pharmac y ANTHRAX VACCINE, UNSPECIFIED 3 2007 319 complet ed Lot#: [id number] [facility] anthrax vaccine 2007 [id number] [employer] complet ed anthrax vaccine 03/10/07 Given Ambulat ory Pharmac y ANTHRAX VACCINE, UNSPECIFIED 2 2007 319 complet ed Lot#: [id number] [facility] anthrax vaccine 2007 [id number] [employer] complet ed anthrax vaccine 02/21/07 Given Ambulat ory Pharmac y ANTHRAX VACCINE, UNSPECIFIED 1 2007 319 complet ed Lot#: [id number] [facility] influenza virus vaccine, live 2006 [id number] [employer] [facility] t ed influenza virus vaccine, live 01/10/07 Given Ambulat ory Pharmac y typhoid vaccine, live, oral 2006 [id number] [employer] [place] complet ed typhoid vaccine, live, oral 03/05/06 Given Ambulat ory Pharmac y influenza virus vaccine, live 2005 [id number] 111 [employer] Inc comple t ed influenza virus vaccine, live 12/04/05 Given Ambulat ory Pharmac y influenza virus vaccine, live 2004 [id number] [employer] comple t ed influenza virus vaccine, live 12/25/04 Given Ambulat ory Pharmac y influenza virus vaccine, live 2004 [id number] 111 [employer] [facility] t ed influenza virus vaccine, live [...] hepatitis A and hepatitis B vaccine Lot#: [id number] [facility] hepatitis A-hepatitis B vaccine 2003 [id number] 104 GlaxoSmithKli ne complet ed hepatitis A-hepatit is B vaccine 07/07/03 Given Ambulat ory Pharmac y HEP A-HEP B 2 2003 104 complet ed hepatitis A and hepatitis B vaccine Lot#: [id number] [facility] hepatitis A-hepatitis B vaccine 2003 [id number] 104 GlaxoSmithKli ne complet ed hepatitis A-hepatit is B vaccine 06/06/03 Given Ambulat ory Pharmac y HEP A-HEP B 1 2003 104 complet ed hepatitis A and hepatitis B vaccine Lot#: [id number] [facility] poliovirus vaccine, inactivated 2003 [id number] sanofi pasteur complet ed polioviru s vaccine, inactivat ed 06/01/03 Given Ambulat ory Pharmac y tetanus-dipht h toxoids (Td) adult/adol 2003 [id number] sanofi pasteur complet ed tetanus-d iphth toxoids (Td) adult/ado l 06/01/03 Given Ambulat ory Pharmac y tuberculin purified protein derivative 2003 [id number] sanofi pasteur complet ed tuberculi n purified protein derivativ e 06/01/03 Given Ambulat ory Pharmac y meningococcal polysaccharid e (MPSV4) 2003 [id number] sanofi pasteur complet ed meningoco ccal polysacch aride (MPSV4) 06/01/03 Given Ambulat ory Pharmac y influenza virus vaccine, whole virus 2003 [id number] Novartis Pharm[employer]ica complet ed influenza virus vaccine, whole virus 06/01/03 Given Ambulat ory Pharmac y MENINGOCOCCAL MPSV4 2003 32 complet ed meningoco ccal polysacch aride vaccine (MPSV4) Lot#: [id number] Mfr: SANOFI PASTEUR [facility] POLIO, UNSPECIFIED FORMULATION 2003 89 complet ed Sanofi Pasteur Lot#: [id number] [facility] TD(ADULT) UNSPECIFIED FORMULATION 2003 139 complet ed tetanus and diphtheri a toxoids, adsorbed, preservat gauri free, for adult use (2 Lf of tetanus toxoid and 2 Lf of diphtheri a toxoid) Lot#: [id number] Mfr: [employer] - A New Musical PASTEUR [facility] [...] [facility] Out[facility] En[facility] [id number] 04/08 [facility] En[facility] [id number] 05/18 [facility] En[facility] [id number] [facility] En[facility] [id number] 03/02 [facility] OFFICE O/P NEW MOD 45 MIN [id number] 1. Diagnos is: ICD-10- CM I10 Essenti al (primar y) hyperte GERARD Fortune 03/02 [facility] En[facility] [id number] [facility] CASE MANAGEMENT [id number] Diagnos is: ICD-10- CM Z71.89 Other specifi ed awake overnight counselor JOY Contreras 03/03 [facility] En[facility] [id number] 03/07 [facility] En[facility] [id number] 03/08 [facility] [id number] 03/10 [facility] [id number] 03/10 [facility] En[facility] [id number] 03/13 [facility] MANAGEMENT [id number] Diagnos is: ICD-10- CM Z71.89 Other specifi ed awake overnight counselor JOY Contreras 03/20 [facility] MANAGEMENT [id number] Diagnos is: ICD-10- CM Z71.89 Other specifi ed awake overnight counselor JOY Contreras 03/27 [facility] Outpatient Encounter [id number] 03/27 [facility] Outpatient Encounter [id number] 03/29 [facility] Procedures Combined list of: 1) Procedures from [...] FORMER CIGARETTES 03/02/2024 [facility] [place] [facility] History of tobacco use VA-TOBACCO NEVER USED OTHER TYPE 03/02/2024 [facility] [place] [facility] Assessment and Plan Combined list of future [...] 05/22/2024 AMBULATORY - MEDICINE AMBULATORY - [facility]IC[facility] Functional Status Combined list of recent functional and cognitive assessments recorded at Department of Defense and Veterans Affairs (VA).VA Functional Bartow Measurement (FIM) Scale: 1 = Total Assistance (Subject = 0% +), 2 = Maximal Assistance (Subject = 25% +), 3 = Moderate Assistance (Subject = 50% +), 4 = Minimal Assistance (Subject = 75% +), 5 = Supervision, 6 = Modified Bartow (Device), 7 = Complete Bartow (Timely, Safely). Assessment Date/Time Source Assessment Type Assessment Skill Assessment Score Assessment Details No data available for this section
--- OUTSIDE RECORDS SUMMARY | 2024-05-15 17:27 | XMS_ITS | Clinical Summary ---
Author Organization [facility] Address [address] [place] [address] Phone Care Team Providers Care Rug Cutter Name Role Phone Juanlily Elmo Curry NP Primary Care Provider Allergies No known active allergies Medications syringe with needle, safety 1 mL 25 gauge x 5/8 syringe BD Disp Beulah 25G X 5/8 Misc USE DIRECTED WEEKLY [...] - 04/28/2024 11:59 PM EDT Hospital Encounter [facility] Interventional Radiology [address] [place] [phone] Sacroiliitis (CMS/HCC) Discharge Disposition: Home or Self Care 04/10/2024 Telephone Neurosurgery [facility] [address] [phone] Malena Bergman MA Appointment (04/07/24 - Per Sue - called patient to schedule SI Joint injection but patient decided to put everything on hold for now due to a possible hernia surgery that he's going to have. ) 03/30/2024 Telephone Neurosurgery [address] [phone] Mally John PA 03/27/2024 11:30 AM EST - 03/27/2024 11:59 PM EST Hospital Encounter Radiology Department - [address] [phone] Low back pain radiating to right leg Discharge Disposition: Home or Self Care 03/20/2024 10:15 AM EST Office Visit Neurosurgery [address] [phone] Mally John PA Sacroiliitis (CMS/HCC) (Primary Dx); Low back pain radiating to right leg 03/13/[address] [phone] Allison Euceda MA from Last 3 Months [...] Signed Date: 04/28/2024 10:20 ET Workstation ID: [id number] Transcribed By: Self Edit Transcribed Date: 04/28/2024 [...] mixed with 2 mL of bupivacaine Scanner: [employer] speed 16 slice VCT Dose reduction technique: [...] mixed with 2 mL of bupivacaine Scanner: [employer] speed 16 slice VCT Dose reduction technique: [...] Signed Date: 04/28/2024 10:20 ET Workstation ID: [id number] Transcribed By: Self Edit Transcribed Date: 04/28/2024 [...] Signed Date: 03/27/2024 15:51 ET Workstation ID: [id number] Transcribed By: Self Edit Transcribed Date: 03/27/2024 [...] Signed Date: 03/27/2024 15:51 ET Workstation ID: [id number] Transcribed By: Self Edit Transcribed Date: 03/27/2024 15:44 ET us Mally QUIÑONEZ IMG MRI PROCEDURES Final R esult from Last 3 Months Insurance [employer] Care Teams Rug Cutter Relationship Specialty Start Date End Date Elmo Moreno NP [address] [facility] [place] PCP - General 05/15/22
--- OUTSIDE RECORDS SUMMARY | 2024-05-15 17:27 | XMS_ITS | Clinical Summary ---
Author Organization [facility] Facility Address [address] [place] [id number] Care Team Providers Care Stars Coordinator Name Role Phone Unavailable Primary Care [...]
--- OUTSIDE RECORDS SUMMARY | 2024-05-15 17:27 | XMS_ITS | Clinical Summary ---
Author Organization [facility] Address [address] [place] [address] Care Team Providers Care Director Of Medical Services Name Role Phone Elmo Moreno Primary Care Provider [phone] Allergies No known active allergies Medications Medication [...] Advance Directives For more information, please contact: [phone] Latest Code Status on File Code Status Date Activated Date Inactivated Comments Full Code 03/18/2020 12:11 PM 03/18/2020 9:28 PM This c ode status was ascertained in the following way: discussion with patient . Care Teams Director Of Medical Services Relationship Specialty Start Date End Date Elmo Moreno: [phone] [address] [facility] [place] [address] PCP - General Family Medicine 03/07/20
== END 2024-05-15 15:39 | disposition home or self-care (01) ==
LOC: HO.HOS 15:28
PROVIDERS: PCP Nurse Practitioner Family
DX: S43.439A Superior glenoid labrum lesion of unspecified shoulder, initial encounter (principal)
CPT/HCPCS: 98012

== ENCOUNTER 2024-06-26 13:07 | Outpatient (AMB) | payer OTHER, SELFPAY ==
--- NOTE | 2024-06-26 13:13 | MHC.OFFVIS ---
Intake Visit Reasons: OV- left posterior labrum tear, discuss sx Intake Note: Gerard is a 43 year old right hand dominant male who presents today for a follow up of his left shoulder. Hx of left shoulder dislocation that was quite difficult to reduce, he was told that he had many tears in the shoulder but never had surgery to repair. The right shoulder also dislocated but was surgically repaired in about 2021 with [facility]. IMPRESSION: 1. No rotator cuff tear. 2. Posterior labral tearing. 3. Mild acromioclavicular and glenohumeral joint osteoarthritis. Allergies No Known Allergies [No Known Allergies*] Allergy (Verified 05/15/24 15:29) HPI HPI OV- left posterior labrum tear, discuss sx: Details: Gerard is a 43 year old right hand dominant male who presents today for a follow up of his left shoulder. Hx of left shoulder dislocation that was difficult to reduce . He has done extensive physical therapy over the years and has continued to have discomfort. 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 At this time he has difficulty with overhead activities and extending his arm out at shoulder level. He states his arm pops and cracks and prevents him from engaging in recreational activities. He would like to be able to get through his day without pain. [facility] Medical History (Updated 05/15/24 @ 16:53 by KHANG oRdas) Tubular adenoma of colon GERD (gastroesophageal reflux disease) Anxiety with depression PTSD (post-traumatic stress disorder) Lumbar stenosis HTN (hypertension) Sleep apnea Hypogonadism in male BPH (benign prostatic hyperplasia) Renal calculi CKD (chronic kidney disease) Right foot pain Surgical History (Updated 05/15/24 @ 10:57 by Jose Briceño MD) Incarcerated umbilical hernia (04/14/24) Status post right rotator cuff repair Status post right foot surgery Family History Father No problems noted. Mother No problems noted. 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 Forward flexion to 140. Internal rotation to L5. Positive Sitka's. Negative Alexandre and Neer. Positive crank. Results Reviewed Results Reviewed: I personally reviewed the MR images. IMPRESSION: 1. No rotator cuff tear. 2. Posterior labral tearing. 3. Mild acromioclavicular and glenohumeral joint osteoarthritis. 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 He has signs and symptoms of a labral tear. He has done physical therapy and continues to have discomfort. MRI confirms labral tear. I had a long discussion with him regarding treatment options. I explained the risks, benefits and alternatives of surgery. I recommend left shoulder arthroscopy possible rotator cuff repair and possible biceps tenotomy. My expectation however is that this will be a debridement of labral tissue only but I can not guarantee this. I did discuss time off from work and he expressed understanding. All his questions were answered. He will contact me when he would like to pursue this. Coding Level of Care Code Est Pt Level 4 (54844) Diagnoses Glenoid labrum tear S43.439A
--- OUTSIDE RECORDS SUMMARY | 2024-06-26 13:26 | XMS_ITS | Encounter Summary ---
Author Name [facility] of Veter[facility] ([place]) Organization [facility] [place] Address [address] [place] [id number] Care Team Providers Care Timber Sizer Operator Name Role Phone ELENA RODRIGUEZ Primary Care [...] PRESCRIPT ION RX Feb 15, 2022 THPRX [id number] USMANGUY NICHOLS PATIENT [facility] HARVEY Gutierrez June 22, 2023 [id number] USMAN,GUY GARCIAM PATIENT Selected Encounter This section includes the information on record at [place] for the Encounter. Date/Time Encounter Type Encounter Description Reason Provider Source Mar 20, 2024 03:06 PM CASE MANAGEMENT ADMIN PAT ACTIVTIES (MASNONCT) ICD-10-CM Z71.89 Other specified counseling JOY ISLAS [facility] Encounter Template Text not used by [place] Assessments - Encounter Diagnoses This section includes the primary and secondary diagnoses documented for the Encounter. Date/Time Primary/Secondary Diagnosis Diagnosis Name Provider Source Mar 20, 2024 03:06 PM PRIMARY Other specified counseling JOY ISLAS [facility] Plan of Treatment: Future Appointments (+ 6 months) and Future Tests (+/- 45 days) The Plan of Treatment section includes future care activities for the patient from all [place] treatmentfacilities. This section includes future appointments and future orders which are active, pending or scheduled. Future Appointments This section includes appointments that were scheduled to occur 6 months from the date of the Encounter, up to a maximum of 20 appointments. The data comes from all [place] treatment facilities. Appointment Date/Time Appointment Type Appointme nt Facility Name Mar 27, 2024 02:45 PM AMBULATORY - MEDICINE [facility] May 22, 2024 02:00 PM AMBULATORY - MEDICINE [facility] June 26, 2024 01:15 PM AMBULATORY MEDICINE [facility] Social History: Smoking Status (Most current) and Tobacco Use (All prior to encounter date) This section includes the most current, and the historical, smoking and tobacco- related health factors from the MS facility where the Encounter took place. Current Smoking Status This section includes the most current smoking, or tobacco-related health factor, from the [place] facility where the Encounter took place. Date/Time Current Smoking Status Comment Facil ity Mar 02, 2024 03:30 PM VA-TOBACCO USE FOR SUNG CIGARETTES [facility] Tobacco Use History This section includes a history of the smoking, or tobacco-related health factors, that were collected on or before the date of the Encounter. The data comes from the [place] facility where the Encounter took place. Date/Time Smoking Status/Tobacco Use Comment F [place] Mar 02, 2024 03:30 PM VA-TOBACCO USE FOR SUNG CIGARETTES [facility] Encounter Notes: All associated encounter notes This section contains the clinical notes associated to the Encounter. Date/Time Encounter Note(s) Provider Source Mar 20, 2024 03:06 PM OEF/OIF NOTE: LOCAL TITLE: OEF/OIF TRANSITION PATIENT ADVOCATE NOTE - TELEPHON STANDARD TITLE: OEF/OIF NOTE DATE OF NOTE: MAR 20, 2024@15:06 ENTRY DATE: MAR 20, 2024@15:06:50 AUTHOR: JOY ISLAS COSIGNER: MODESTO CHAVEZ URGENCY: [...] to discuss his service connection disability and Readiness and Employment ([employer]). states that he has a job at [employer] but with his injuries he doesnt think he will be able to work that much longer and wants to explore other options incase he can no longer work anymore. The has Mondays off so TW decided to set up an appointment on WednesdayMarch 27 @ 10am. /abisai/ JOY ISLAS Transitional Patient Advocate Signed: 03/20/2024 15:30 /abisai/ AD [employer] LICENSED CLINICAL PHOTOGRAPHER AERIAL Cosigned: 03/21/2024 14:33 JOY ISLAS [facility]
--- OUTSIDE RECORDS SUMMARY | 2024-06-26 13:26 | XMS_ITS ---
Author Name Department of Vetera Affairs ([place]) Organization [facility] Address [address] [place] [id number] Care Team Providers Care Health Underwriter Name Role Phone ELENA RODRIGUEZ Primary Care [...] PRESCRIPT ION RX Feb 15, 2022 THPRX [id number] GUY MARY PATIENT [facility] HARVEY Gutierrez June 22, 2023 [id number] USMANGUY AVENDAÑO PATIENT Selected Encounter This section includes the information on record at ID for the Encounter. Date/Time Encounter Type Encounter Description Reason Provider Source May 22, 2024 02:00 PM OFFICE O/P [place] 60 MIN PM&RS PHYSICIAN ICD-10-CM M77.11 Lateral epicondylitis, right elbow LY FLAHERTY E Encounter Template Text not used by ID Assessments - Encounter Diagnoses This section includes the primary and secondary diagnoses documented for the Encounter. Date/Time Primary/Secondary Diagnosis Diagnosis Name Provider Source May 27, 2024 05:47 AM PRIMARY Lateral epicondylitis, right elbow LY FLAHERTY [facility] [place] [facility] May 27, 2024 05:47 AM SECONDARY Mononeuropathy, unspecified LY FLAHERTY [facility] [place] [facility] May 27, 2024 05:47 AM SECONDARY Myalgia, unspecified site LY FLAHERTY Hitesh Proctor [facility] May 27, 2024 05:47 AM SECONDARY Pain in right elbow LY FLAHERTY [facility] Plan of Treatment: Future Appointments (+ 6 months) and Future Tests (+/- 45 days) The Plan of Treatment section includes future care activities for the patient [facility]. This section includes future appointments and future orders which are active, pending or scheduled. Future Appointments This section includes appointments that were scheduled to occur 6 months from the date of the Encounter, up to a maximum of 20 appointments. The data comes from all ID treatment facilities. Appointment Date/Time Appointment Type Appointme nt Facility Name June 26, 2024 01:15 PM AMBULATORY - MEDICINE [facility] Active, Pending, and Scheduled Orders This section includes a listing of several types of active, pending, and scheduled orders, including clinic medications orders, diagnostic test orders, procedure orders and consult orders; where the start date of the order is 45 days before the date of the Encounter or 45 days after the date of theEncounter. The data comes from all [facility]. Test Date/Time Test Type Test Details Facility Name June 21, 2024 10:27 AM Consult Order [facility] College Admissions Counselor's Choice [facility] Vital Signs: All taken on the encounter date This section contains inpatient and outpatient Vital Signs collected on the date of the Encounter. Date/Time Temperature Pulse Blood Pressure Respiratory Rate SP02 Pain Height Weight Body Mass Index Source May 22, 2024 01:51 PM 160/100 5 [facility] Social History: Smoking Status (Most current) [...] PM VA-TOBACCO USE FOR SUNG CIGARETTES [facility] Tobacco Use History This section includes a history of the smoking, or tobacco-related health factors, that were collected on or before the date of the Encounter. The data comes from the ID facility where the Encounter took place. Date/Time Smoking Status/Tobacco Use Comment F tess Mar 02, 2024 03:30 PM ID-TOBACCO USE FOR SUNG CIGARETTES ID [facility] [place] [facility] Encounter Notes: All associated encounter notes This section contains the clinical notes associated to the Encounter. Date/Time Encounter Note(s) Provider Source May 22, 2024 03:08 PM PHYSICAL MEDICINE REHAB CONSULT: LOCAL TITLE: CONSULT REPORT/PM&R STANDARD TITLE: PHYSICAL MEDICINE REHAB CONSULT DATE OF NOTE: MAY 22, 2024@15:08 ENTRY DATE: MAY 22, 2024@15:08:41 AUTHOR: JOHANNY FLAHERTY COSIGNER: URGENCY: STATUS: COMPLETED MAY 22, 2024 ELENA MARY is a 43 y/o RHD MALE, previously in [employer] FROM May TO Feb from PERIOD OF SERVICE - [employer], who was seen today for consultation requested by _ today for chief complaint of right elbow pain. Onset/Course: No acute trauma. 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 Symptoms started a few years ago but have worsened to the point that he is now dropping tools. He gets cramping in the hands with some triggering of the right middle finger. He additionally has a history of bialteral shoulder pain. Right shoulder had rotator cuff repair in 2022 with [facility]. Outcome has been good. Dislocation in the left shoulder in the past, traumatic with reduction under anesthesia. Trauma/inciting events: Primary issue is the right elbow pain. Sa withw [facility]. Xrays not available. Report states new small bone fragment anterior to the coronoid process question small avulsion versus loose body. There is no description of the shape of the evulsion nor any discussion regarding potential donor site. Pain is over the epicondyles laterally. Bothers him with wrist extension. Digital extension also causes discomfort. He was offered injection declined because he had progression of his rotator cuff disease after previous corticosteroid injections to the right shoulder. [place] states that he has been noticing Systemic/Other symptoms: Denies fever, chills, night sweats, weight loss, saddle paresthesia, or bowel/bladder incontinence. Daily activities/exercise: Pertinent prior procedures and/or imaging: PMHx as obtained from Chart: Active problems - Computerized Problem List is the source for the followin. Polyp Colon ([facility] [id number]) 2. Renal stone 3. Chronic kidney disease stage 3A 4. Joint pain 5. Contact dermatitis 6. Dermatophytosis 7. Gout 8. Insomnia 9. Mononeuritis 10. Myalgia 11. History of nicotine dependence 12. Hammer toe 13. Chronic back pain 14. Plantar fasciitis 15. HTN - Hypertension ([facility] [id number]) 16. Degenerative Joint Disease of Shoulder Region ([facility] [id number]) 17. Pain in Lumbar Spine ([facility] [id number]) 18. Erectile Dysfunction ([facility] [id number]) 19. Anxiety ([facility] [id number]) 20. GERD - Gastro-Esophageal Reflux Disease ([facility] [id number]) PSxHx: Fam Hx: Soc Hx: MARITAL STATUS - AIR [employer] FROM May TO Feb Service Connected Disabilities with % Eligibility: SERVICE CONNECTED 50% to 100% VERIFIED Total S/C %: 90 LIMITATION ON MOTION, RING OR LITTLE FINGER 0% S/C LIMITATION ON MOTION, RING OR LITTLE FINGER 0% S/C IMPAIRED HEARING 0% S/C LIMITED FLEXION OF KNEE 10% S/C LIMITATION OF MOTION, INDEX OR LONG FINGER 10% S/C RESIDUALS OF FOOT INJURY 10% S/C LIMITATION ON MOTION, RING OR LITTLE FINGER 0% S/C RESIDUALS OF FOOT INJURY 10% S/C LIMITATION ON MOTION, RING OR LITTLE FINGER 0% S/C LUMBOSACRAL OR CERVICAL STRAIN 10% S/C LIMITATION OF MOTION, INDEX OR LONG FINGER 10% S/C LIMITATION OF MOTION, INDEX OR LONG FINGER 10% S/C LIMITATION OF MOTION, THUMB 10% S/C LIMITED FLEXION OF KNEE 10% S/C TINNITUS 10% S/C SLEEP APNEA SYNDROMES 50% S/C HAMMER TOE 0% S/C LIMITATION OF MOTION, THUMB 10% S/C LIMITATION OF MOTION, INDEX OR LONG FINGER 10% S/C ALL: Patient has answered NKA MEDS: Active Outpatient Medications (including Supplies): Non-VA HCTZ 25MG/LOSARTAN 100MG TAB 1 TABLET BY MOUTH ACTIVE Non-VA LORAZEPAM 0.5MG TAB 0.5MG BY MOUTH ACTIVE Non-VA NAPROXEN 500MG TAB 500MG BY MOUTH ACTIVE Non-VA OMEPRAZOLE 20MG EC CAP 20MG BY MOUTH EVERY MORNING ACTIVE 30 MINUTES BEFORE BREAKFAST Indication: FOR GASTROESOPHAGEAL REFLUX DISEASE Non-VA TESTOSTERONE CYP 200MG/ML 1ML IN OIL 1ML (200MG) ACTIVE INTRAMUSCULARLY No Active Remote Medications for this patient ROS: Constitutional - Denies fever or chills, night sweats, or unexplained weight loss. Head/Eyes/Ears/Neck- Denies headaches, dizziness, visual changes. Cardiovascular - Denies chest pain/palpitations, lower extremity swelling. Respiratory - Denies shortness of breath, or cough. GI - Denies nausea, vomiting, or loss of bowel fx/control. - Denies urinary difficulties or loss of bladder function. Musculoskeletal - See HPI. Neuro - See HPI. Psychiatric - See PMHx. Denies mood swings or change in behavior. Sleep - Denies nocturnal pain or excessive daytime fatigue. Skin/integuments - Denies rashes, lesions, or skin breakdown in the extremities. All other systems reviewed and are negative. PHYSICAL EXAMINATION: Vitals in chart. GEN: WD, WN. Awake, alert, cooperative with exam. In NAD. PSYCH: Good eye contact. Normal mood. Appropriately concerned. CVS: Extremities warm/well perfused. No lower extremity edema appreciated. PULM: Breathing unlabored, no accessory muscle use. ABD: Nondistended. EXTREMITIES: No cyanosis or edema of bilateral upper and lower extremities. SKIN: No rashes, lesions, or skin breakdown over exposed areas. MUSCULOSKELETAL/NEURO EXAM: Muscular gentleman. Full cervical knee. He has some reduced strength and sensation in the right hand over the dorsum gently. No effusion redness or warmth was noted. Still with some tightness through the dorsal aspect of forearm and within the fascial planes. The distal pulses were intact bilaterally. There was normal capillary refill. 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 No discernible triggering of the right middle finger on today's visit. No atrophy There is no pain over the radial head. No effusion. Supination pronation is tolerated well. Wrist extension aggravates symptoms. Against resistance increases symptoms as well. Gait: normal, symmetric, negative Trendelenburg. Able to perform tandem walk and heel/toe walk. Labs: No data available for: WBC HGB HCT PLT POTASSIUM SODIUM HEMOGLOBIN A1C GLUCOSE CREATININE, Serum BUN (WORC) AST ALT SODIUM, (WORC) GLUCOSE (WORC) BILIRUBIN, TOTAL ALKALINE PHOSPHATASE CHOLESTEROL LDL calculated HDL CHOLESTEROL TRIGLYCERIDE TSH VITAMIN B12 VITAMIN D (25-OH) HIV 1&2 Ag/Ab SCREEN URINE GLUCOSE UA RBC CHEM 7 TREND LAB CUMULATIVE SELECTED 2 No selection items chosen for this component. Liver Function Tests No data available for: AST ALT ALKALINE PHOSPHATASE ALBUMIN BILIRUBIN, TOTAL LDH PROTEIN,TOTAL HEMOGLOBIN A1C TREND No data available Diagnostic Studies:Xray with [facility] 03/08/2024 showed small tiny bone fragment anterior to the coronoid process of the ulna. New since last exam 2018. Question whether this represented avulsion fracture versus loose body. No additional abnormalities noted. ASSESSMENT/PLAN: Patient is a 43-year-old with right-sided lateral epicondylitis. The area of tenderness does not correlate with the location of the fragment. There is no effusion within the joint. He will initiate a course of occupational therapy with myofascial release, iontophoresis and possible kinesiotaping techniques as well as counterforce brace. If his symptoms do not improve MRI of the elbow will be obtained and further consideration to intra-articular injection could be given. [place] would like to avoid any type of injection. he attributes rotator cuff tear to previous corticosteroid injection. FOLLOW-UP: 6 to 8 weeks to determine efficacy. If he wishes to avoid corticosteroid injection we could additionally consider referral to Eric Grya and jacqueline to have PRP provided. Potential risks and side effects of any medication(s) prescribed today was reviewed with . Patient had many excellent questions, which I answered to the best of my ability and to patient's apparent satisfaction. MDM: 60 minutes which includes reviewing records, evaluating patient, documenting in medical record, educating, counseling and coordinating care. Medication Reconciliation: Outpatient: Has the patient been taking medications as documented in the EMLR? YES: The patient has been taking medications as documented in the EMLR. Essential Medication List for Review used to complete this medication reconciliation. INCLUDED IN THIS LIST: Alphabetical list of active outpatient prescriptions dispensed from this VA (local) and dispensed from another VA or DoD facility (remote) as well as inpatient orders (local, pending and active), local clinic medications, locally documented non-VA medications, and local prescriptions that have or been discontinued in the past 90 days. - All changes in medications, including all non-VA/Herbal/OTC medications were entered into CPRS. - If there were any medications the patient should no longer take, they were discontinued. - The patient/caregiver was instructed to update this list, discard old lists, and take this list to the next appointment, whether with a VA or non-VA provider. JLV Link Data on this list may not be complete. Please check JLV. Allergies/ADRs (Tool #5) FACILITY ALLERGY/ADR -------- No Remote Allergy/ADR Data available for this patient [facility] No Known Allergies Med Recon NoGlossary (Tool #1) INCLUDED IN THIS LIST: Alphabetical list of active outpatient prescriptions dispensed from this VA (local) and dispensed from another VA or DoD facility (remote) as well as inpatient orders (local pending and active), local clinic medications, locally documented non-VA medications, and local prescriptions that have or been discontinued in the past 90 days. Non-VA Meds Last Documented On: Mar 02, 2024 NOTE The display of VA prescriptions dispensed from another VA or DoD facility (remote) is limited to active outpatient prescription entries matched to National Drug File at the originating site and may not include some items such as investigational drugs, compounds, etc. NOT INCLUDED IN THIS LIST: Medications self-entered by the patient into personal health records (i.e. [place] PREVENTIVE MEDICINE) are NOT included in this list. Non-VA medications documented outside this ID, remote inpatient orders (regardless of status) and remote clinic medications are NOT included in this list. The patient and provider must always discuss medications the patient is taking, regardless of where the medication was dispensed or obtained. Non-VA HCTZ 25MG/LOSARTAN 100MG TAB TAKE ONE TABLET BY MOUTH Non-VA LORAZEPAM 0.5MG TAB TAKE ONE TABLET BY MOUTH Non-VA NAPROXEN 500MG TAB TAKE ONE TABLET BY MOUTH Non-VA OMEPRAZOLE 20MG EC CAP TAKE 1 CAPSULE BY MOUTH EVERY MORNING 30 MINUTES BEFORE BREAKFAST Indication: FOR GASTROESOPHAGEAL REFLUX DISEASE Non-VA TESTOSTERONE CYP 200MG/ML 1ML IN OIL INJECT 1ML (200MG) INTRAMUSCULARLY SUPPLIES Medication Reconciliation: Outpatient: Has the patient been taking medications as documented in the EMLR? YES: The patient has been taking medications as documented in the EMLR. Essential Medication List for Review used to complete this medication reconciliation. INCLUDED IN THIS LIST: Alphabetical list of active outpatient prescriptions dispensed from this ID (local) and dispensed from another ID or [facility] facility (remote) as well as inpatient orders (local, pending and active), local clinic medications, locally documented non-VA medications, and local prescriptions that have or been discontinued in the past 90 days. - All changes in medications, including all non-VA/Herbal/OTC medications were entered into CPRS. - If there were any medications the patient should no longer take, they were discontinued. - The patient/caregiver was instructed to update this list, discard old lists, and take this list to the next appointment, whether with a VA or non-VA provider. JLV Link Data on this list may not be complete. Please check JLV. Allergies/ADRs (Tool #5) FACILITY ALLERGY/ADR -------- No Remote Allergy/ADR Data available for this patient [facility] No Known Allergies Med Recon NoGlossary (Tool #1) INCLUDED IN THIS LIST: Alphabetical list of active outpatient prescriptions dispensed from this VA (local) and dispensed from another VA or DoD facility (remote) as well as inpatient orders (local pending and active), local clinic medications, locally documented non-VA medications, and local prescriptions that have or been discontinued in the past 90 days. Non-VA Meds Last Documented On: Mar 02, 2024 NOTE The display of VA prescriptions dispensed from another VA or DoD facility (remote) is limited to active outpatient prescription entries matched to National Drug File at the originating site and may not include some items such as investigational drugs, compounds, etc. NOT INCLUDED IN THIS LIST: Medications self-entered by the patient into personal health records (i.e. [place] PREVENTIVE MEDICINE) are NOT included in this list. Non-VA medications documented outside this ID, remote inpatient orders (regardless of status) and remote clinic medications are NOT included in this list. The patient and provider must always discuss medications the patient is taking, regardless of where the medication was dispensed or obtained. Non-VA HCTZ 25MG/LOSARTAN 100MG TAB TAKE ONE TABLET BY MOUTH Non-VA LORAZEPAM 0.5MG TAB TAKE ONE TABLET BY MOUTH Non-VA NAPROXEN 500MG TAB TAKE ONE TABLET BY MOUTH Non-VA OMEPRAZOLE 20MG EC CAP TAKE 1 CAPSULE BY MOUTH EVERY MORNING 30 MINUTES BEFORE BREAKFAST Indication: FOR GASTROESOPHAGEAL REFLUX DISEASE Non-VA TESTOSTERONE CYP 200MG/ML 1ML IN OIL INJECT 1ML (200MG) INTRAMUSCULARLY SUPPLIES /abisai/ JOHANNY FLAHERTY [facility] Signed: 05/25/2024 12:58 JOHANNY FLAHERTY [facility]
--- OUTSIDE RECORDS SUMMARY | 2024-06-26 13:27 | XMS_ITS | Clinical Summary ---
Author Organization [facility] Facility Address [address] [place] [address] Care Team Providers Care Roll Plugger Machine Operator Name Role Phone Unavailable Primary [...] Due Date Last Done Comments Hepatitis B Vaccine (1 of 3 - 19+ 3-dose series) 07/17 Pneumococcal Vaccine: Peds ( 0 to 5 Years) and At-Risk Patients (6 to 49 Years) (1 of 2 - PCV) 1997 Influenza Vaccine (Season Ended) 2024 Insurance
--- OUTSIDE RECORDS SUMMARY | 2024-06-26 13:27 | XMS_ITS | Clinical Summary ---
Author Organization [facility] Address [address] [place] [address] Care Team Providers Care Plastic Surgery Technician Name Role Phone Elmo Moreno Primary Care Provider [phone] Allergies No known active allergies Medications Medication [...] Advance Directives For more information, please contact: [phone] Latest Code Status on File Code Status Date Activated Date Inactivated Comments Full Code 03/18/2020 12:11 PM 03/18/2020 9:28 PM This c ode status was ascertained in the following way: discussion with patient . Care Teams Plastic Surgery Technician Relationship Specialty Start Date End Date Elmo Moreno: [phone] [address] [facility] [place] [address] PCP - General Family Medicine 03/07/20
--- OUTSIDE RECORDS SUMMARY | 2024-06-26 13:27 | XMS_ITS | Clinical Summary ---
Author Organization [facility] Address [address] [place] [address] Phone Care Team Providers Care Podiatry Assistant Name Role Phone KbjoneElmo NP Primary Care Provider Allergies No known active allergies Medications syringe with needle, safety 1 mL 25 gauge x 5/8 syringe BD Disp [place] 25G X 5/8 Misc USE DIRECTED WEEKLY [...] by . 30 patch 1 5 Active naproxen (NAPROSYN) 500 mg tablet Take 1 tablet (500 mg total) by mouth 1 (one) time each day. Active Active Problems Problem Noted Date Diagnosed [...] and strain of hip and thigh Sacroiliitis ([facility] V24) 08/26/2021 Overview (03/14/2024): Last Assessment & Plan: [...] while working 3-05/25, with rest and evening 10 or higher. When the right SI joint [...] questions answered. Stage 3a chronic kidney disease ([facility] V24, CM S/[facility] V28) 03/02/2021 Essential hypertension 02/25/2021 Renal stone 02/25/2021 Other hammer toe(s) (acquired), right foot 02/13 Resolved Problems Problem Noted Date Diagnosed Date Resolved Date Dermatitis 09/21/2023 03/20/2024 Gastroenteritis 09/21/2023 03/20/2024 Encounters Date Type Department Care Team Description 04/28/2024 7:05 AM EDT - 04/28/2024 11:59 PM EDT Hospital Encounter [facility] Interventional Radiology [address] [place] [address] Sacroiliitis ([facility] V24) Discharge Disposition: Home or Self Care 04/10/2024 Telephone [facility] [address] [facility] [address] [place] [address] Malena Bergman MA Appointment (04/07/24 - Per Sue - called patient to schedule SI Joint injection but patient decided to put everything on hold for now due to a possible hernia surgery that he's going to have. ) 03/30/2024 Telephone [facility] [address] [facility] [address] [place] [address] Mally John PA from Last 3 Months Immunizations Name Administration [...] 01/17/2022 Social Influencers of Health Screening 01/17/2022 Hypertension/CHF/CAD Annual BMP Blood Test 11/29/2023 Influenza Vaccine (Season Ended) 2024 01/21/2023, 12/21/2021, 01/18/2021, Additional history exists DTaP,Tdap,and Td Vaccines (4 - Td or [...] age to complete this topic Meningococcal B Vaccine Aged Out No l onger eligible based on patient's age to complete [...] RIGHT Routine 04/28/2024 9:07 AM EDT Sacroiliitis ([facility] V24) from Last 3 Months Results * IR [...] Signed Date: 04/28/2024 10:20 ET Workstation ID: [id number] Transcribed By: Self Edit Transcribed Date: 04/28/2024 [...] mixed with 2 mL of bupivacaine Scanner: [employer] 16 slice VCT Dose reduction technique: ASIR [...] mixed with 2 mL of bupivacaine Scanner: [employer] speed 16 slice VCT Dose reduction technique: [...] Signed Date: 04/28/2024 10:20 ET Workstation ID: [id number] Transcribed By: Self Edit Transcribed Date: 04/28/2024 10:17 ET Mally QUIÑONEZ IMG IR PROCEDURES Final Re sult from Last 3 Months Insurance [employer] Care Teams Podiatry Assistant Relationship Specialty Start Date End Date Elmo Moreno NP [address] [facility] AQUILES Cai PCP - General 05/15/22
--- OUTSIDE RECORDS SUMMARY | 2024-06-26 13:27 | XMS_ITS ---
Author Name [facility] Organization [facility] Address [address] [place] [id number] Care Team Providers Care Nursery Supervisor Name Role Phone GERARD CARABALLO Primary Care [...] PRESCRIPT ION RX Feb 15, 2022 THPRX [id number] GUY MARY PATIENT [employer] HARVEY Gutierrez June 22, 2023 [id number] GUY MARY PATIENT Selected Encounter This section includes the information on record at [place] for the Encounter. Date/Time Encounter Type Encounter Description Reason Pro vider Source June 23, 2024 09:39 AM Outpatient Encounter ADMIN PAT ACTIVTIES (MASNONCT) [...] 26, 2024 01:15 PM [facility] Active, Pending, and Scheduled Orders This [...] AM Consult Order [facility] Cons Supervisor Keymodule [place] Choice [facility] Social History: Smoking Status (Most current) [...] place. Date/Time Current Smoking Status Comment Lukasz gibsonrosi Mar 02, 2024 03:30 PM VA-TOBACCO USE FOR SUNG CIGARETTES [facility] Tobacco Use History This section includes a history of the smoking, or tobacco-related health factors, that were collected on or before the date of the Encounter. The data comes from the [place] facility where the Encounter took place. Date/Time Smoking Status/Tobacco Use Comment F tess Mar 02, 2024 03:30 PM VA-TOBACCO USE FOR SUNG CIGARETTES [facility] Encounter Notes: All associated encounter notes This section contains the clinical notes associated to the Encounter. Date/Time Encounter Note(s) Provider Source June 23, 2024 09:39 AM NURSING TELEPHONE ENCOUNTER NOTE: LOCAL TITLE: TELEPHONE NOTE/REFERRAL COORDINATION INITIATIVE [facility] STANDARD TITLE: NURSING TELEPHONE ENCOUNTER NOTE DATE OF NOTE: JUNE 23, 2024@09:39 ENTRY DATE: JUNE 23, 2024@09:39:46 AUTHOR: JASON LYNCH COSIGNER: URGENCY: STATUS: COMPLETED TELEPHONE NOTE/REFERRAL COORDINATION INITIATIVE NURSE Has ADDENDA Wharf Labourer spoke with regarding orthopedic care. He will constinue to meet with [facility] surgeon to discuss surgical options got left shoulder. would also like to be referred to [facility] ortho clinic to discuss other options. If [facility]CT agrees, please enter in [facility] consult [facility] clinic. /es/ JASON LYNCH RN REFERRAL COORDINATION TEAM Signed: 06/23/2024 09:43 Receipt Acknowledged By: 06/23/2024 15:35 /es/ JAC MEYERS, FRAN REGISTERED NURSE 06/23/2024 14:59 /abisai/ Gerard Caraballo PA-C STAFF PHYSICIAN PROSTHETIC DENTIST 06/23/2024 ADDENDUM STATUS: COMPLETED I do not agree and will await cc ortho report. /abisai/ Gerard Caraballo PA-C STAFF PHYSICIAN PROSTHETIC DENTIST Signed: 06/23/2024 14:59 JASON LYNCH [facility]
--- OUTSIDE RECORDS SUMMARY | 2024-06-26 13:27 | XMS_ITS | Continuity of Care Document ---
Author Name DOD-MD Organization DOD-MD Care Team Providers Care Boat Dispatcher Name Role Phone DOD-MD Unavailable Unavailable Problems Combined list of problems from 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 It does not include entries that were removed or entered in error. Problem Status Onset Date Problem Type Date of Resolution Comments Source Other hammer toe(s) (acquired), right foot Active 1898 Condition DoD Anxiety (SCT [id number]) Active Condition [facility] Chronic back pain Active Condition [facility] Chronic kidney disease stage 3A Active Condition Mar 03 Entered By: EDITH ALEJANDRO Comment: Stage 3a chronic kidney disease 03/02/2021 [facility] Contact dermatitis Active Condition [facility] Degenerative Joint Disease of Shoulder Region (SCT [id number]) Active Condition [facility] Dermatophytosis Active Condition Mar 03, 2024 Entered By: EDITH ALEJANDRO Comment: Dermatophytosis tinea cruris [facility] Erectile Dysfunction (SCT [id number]) Active Condition [facility] GERD - Gastro-Esophageal Reflux Disease (SCT [id number]) Active Condition [facility] Gout Active Condition [facility] Hammer toe Active Condition Mar 03 Entered By: EDITH ALEJANDRO Comment: hammer toe(s) (acquired), right foot [facility] History of nicotine dependence Active Condition [facility] HTN - Hypertension (SCT [id number]) Active Condition [facility] Pain in Lumbar Spine (SCT [id number]) Active Condition [facility] Plantar fasciitis Active Condition 2024 Entered By: EDITH ALEJANDRO Comment: Plantar fasciitis left [facility] Polyp Colon (SCT [id number]) Active Condition [facility] Renal stone Active Condition [facility] headache Active Condition DoD insomnia Active Condition DoD visit for: services physical pre-deployment Active Condition DoD ASSESS PATIENT CONDITION WORK-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 OCCUPATIONAL DISEASE Active Condition DoD IRREGULAR SLEEP-WAKE RHYTHM Active Condition DoD DERMATOPHYTOSIS Active Condition DoD skin symptoms Inactive Condition DoD GASTROENTERITIS VIRAL Inactive Condition DoD DEHYDRATION (Na, H2O) Inactive Condition DoD Convalescence Following Treatment Active Condition DoD PLANTAR FASCIITIS LEFT Active Condition DoD DERMATITIS Active Condition DoD ALLERGIC RHINITIS Inactive Condition DoD FINGER SPRAIN RIGHT MIDDLE FINGER Inactive Condition DoD MONONEURITIS LOWER LIMB Active Condition DoD Other Physical Therapy Active Condition DoD LEG STRAIN GASTROCNEMIUS RIGHT Inactive Condition DoD pain in the leg (below the knee) Active Condition DoD UPPER RESPIRATORY INFECTION Inactive Condition DoD skin: a rash [as Sx] Active Condition D oD nausea with vomiting Inactive Condition DoD Cognitive Skills - Orientation / Awareness Training Active Condition DoD Administrative Evaluation Services Inactive Condition DoD feeling congested in the chest Inactive Condition DoD Wheezing Active Condition DoD PARTNER RELATIONAL PROBLEM Active Condition DoD ADJUSTMENT DISORDER WITH MIXED EMOTIONAL FEATURES Inactive Condition DoD visit for: ears / hearing exam Active Condition DoD bumped into stationary object Inactive Condition DoD FINGER SPRAIN RIGHT RING FINGER PIP Inactive Condition DoD deployment Active Condition Do D GASTROENTERITIS Active Condition DoD ESSENTIAL HYPERTRIGLYCERIDEMIA Active Condition DoD NICOTINE DEPENDENCE Active Condition Do D DERMATOPHYTOSIS TINEA CRURIS Active Condition DoD Inquiry And Counseling: Contraceptive Practices Active Condition DoD SORE THROAT Active Condition DoD nasal passage blockage (stuffiness) Active Condition DoD sore throat Inactive Condition DoD Blood Pressure Isolated Elevated Active Condition DoD drip or drainage down throat from above Active Condition DoD CONJUNCTIVITIS ACUTE ATOPIC Inactive Condition DoD CONTACT DERMATITIS Active Condition DoD ALLERGIC REACTION Inactive Condition DoD PREHYPERTENSION Active Condition DoD visit for: occupational health / fitness exam Active Condition no condition identified related to occupational exposures. Hearing is H1. DoD visit for: administrative purpose Inactive Condition DoD BRONCHITIS Inactive Condition Pt needs to quit smoking - will recommend Chantix once BP controlled DoD SINUSITIS Active Condition DoD ankle joint pain Active Condition Pro file for 30 days DoD visit for: issue repeat prescription Inactive Condition DoD OBESITY Active Condition Pt to be referred to Wellness due to Profile and weight issues DoD GOUT Active Condition DoD foot pain (soft tissue) [...] did not ask for a referral. DoD NEW PATIENT OPHTHALMOLOGICAL EXAM Inactive Condition No his tory or signs of eye injuries or foreign bodies DoD ESSENTIAL HYPERTENSION Active Condition Instructed pt o n importance of taking medication and at the same time everyday. Can not clear pt without BP not being under control and with continue complaints of foot problems. DoD ESSENTIAL HYPERTENSION BENIGN Active Condition improved with onset of anti-HTN med. Will avoid HCTZ due to possible exaccerbation of gout. nephrology appt pending due to increased creatinine. Likely due to uncontrolled HTN but referred for eval. DoD FOOT SPRAIN RIGHT Inactive Condition Pl ain films reveal no [...] Pt verbalized understanding of all counseling. DoD MYALGIA AND MYOSITIS Active Condition Will check flu. Pt is beyond the window where treatment would help. DoD cough Active Condition continue w ith previously prescribed regimen. likely viral. if worsens encouraged pt to f/u with PCM. DoD HYPERTENSION (SYSTEMIC) Active Condition Adequately controlled on current medication (Adalat 60mg and Hyzaar 100/25). 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 DoD Patient Counseling: Inquiry & Counseling Active Condition DoD Diagnosis: ICD-10-CM M77.11 Lateral epicondylitis, right elbow Active Diagnosis [facility] Diagnosis: ICD-10-CM Z71.89 Other specified counseling Active Diagnosis [facility] Diagnosis: ICD-10-CM I10 Essential (primary) hypertension Active Diagnosis [facility] Medications Combined list of outpatient medications [...] ORAL, IVAX PHARMACEUT, 100 ea. BOTTLE Active [id number] 2023 90 Pharmac y Data Transac [...] BY MOUTH ORAL ACTIVE GERARD RODRIGUEZ 2024 [facility] ibuprofen 600 [...] ORAL, AUROBINDO PHARM, 500 ea. BOTTLE Active [id number] 2023 30 Pharmac y Data Transac tion Service Facilit y LORAZEPAM (lorazepam) , 0.5 MG, TABLET, ORAL, AUROBINDO PHARM, 500 ea. BOTTLE Active [id number] 2023 30 Pharmac y Data Transac tion Service Facilit y LORAZEPAM 0.5MG TAB TAKE ONE TABLET BY MOUTH ORAL ACTIVE GERARD RODRIGUEZ 2024 [facility] losartan-hy droCHLOROth [...] ORAL, GLENMARK PHARMA, 500 ea. BOTTLE Active [id number] 2023 60 Pharmac y Data Transac tion Service Facilit y NAPROXEN (NAPROXEN), 500MG, TABLET, ORAL, GLENMARK PHARMA, 500 ea. BOTTLE Active [id number] 2023 60 Pharmac y Data Transac tion Service Facilit y NAPROXEN 500MG TAB TAKE ONE TABLET BY MOUTH ORAL ACTIVE GERARD ROD[facility]IGUEZ [facility] OMEPRAZOLE (omeprazole ), 20 MG, CAPSULE DR, ORAL, boo-box, 1000 ea. BOTTLE Active [id number] 4 2023 90 Pharmac y Data Transac [...] BREAKFAS T ORAL ACTIVE GERARD [facility]IGUEZ [facility] oxyCODONE 5 mg oral tablet [...] MEDICAL SURG, 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 Comments Source ANTHRAX VACCINE, UNSPECIFIED 6 2023 319 complet ed HISTORICA L INFORMATI ON - FROM OTHER REGISTRY, Lot#: [id number] [facility] Influenza, injectable, quadrivalent, preservative free 2021 [id number] SmithKline (SKB) complet ed Influenza , injectabl e, quadrival ent, preservat gauri free DoD tetanus, diphtheria, acellular pertu is 2021 [id number] sanofi pasteur complet ed tetanus, diphtheri a, acellular pertussis 04/24/21 Given Ambulat ory Pharmac y TDAP 2 2021 115 complet ed HISTORICA L INFORMATI ON - FROM OTHER REGISTRY, tetanus toxoid, reduced diphtheri a toxoid, and acellular pertussis vaccine, adsorbed Lot#: [id number] Mfr: SANOFI PASTEUR [facility] tetanus toxoid, reduced diphtheria toxoid, and acellular pertu is vaccine, adsorbed 2 2021 [id number] Sanofi Pasteur (PMC) complet ed tetanus toxoid, reduced diphtheri a toxoid, and acellular pertussis vaccine, adsorbed DoD influenza virus vaccine, inactivated 2020 [id number] Seqirus complet ed influenza virus vaccine, inactivat ed 01/18/21 Given Ambulat ory Pharmac y Influenza, injectable, Madin Hardwick Canine Kidney, quadrivalent with preservative 9 2020 [id number] Seqirus (SEQ) comple t ed Influenza , injectabl e, Madin Hardwick Canine Kidney, quadrival ent with preservat gauri DoD COVID Vaccine Moderna 2020 [id number] complet ed COVID Vaccine Moderna 05/25/20 Given Ambulat ory Pharmac y COVID-19 (MODERNA), MRNA, LNP-S, PF, 100 MCG/0.5ML DOSE OR 50 MCG/0.25ML DOSE 2 2020 207 complet ed HISTORICA L INFORMATI ON - FROM OTHER REGISTRY, SARS-COV- 2 (COVID-19 ) vaccine, mRNA, spike protein, LNP, preservat gauri free, 100 mcg or 50 mcg dose Lot#: [id number] Mfr: MODERNA US, INC. [facility] SARS-COV-2 (COVID-19) vaccine, mRNA, spike protein, LNP, preservative free, 100 mcg or 50 mcg dose 2 2020 [id number] Moderna US, Inc. (MOD) complet ed SARS-COV- 2 (COVID-19 ) vaccine, mRNA, spike protein, LNP, preservat gauri free, 100 mcg or 50 mcg dose DoD COVID Vaccine Moderna 2020 [id number] complet ed COVID Vaccine Moderna 04/24/20 Given Ambulat ory Pharmac y COVID-19 (MODERNA), MRNA, LNP-S, PF, 100 MCG/0.5ML DOSE OR 50 MCG/0.25ML DOSE 1 2020 207 complet ed HISTORICA L INFORMATI ON - FROM OTHER REGISTRY, SARS-COV- 2 (COVID-19 ) vaccine, mRNA, spike protein, LNP, preservat gauri free, 100 mcg or 50 mcg dose Lot#: [id number] Mfr: RotapanelA [employer]. [facility] SARS-COV-2 (COVID-19) vaccine, mRNA, spike protein, LNP, preservative free, 100 mcg or 50 mcg dose 1 2020 [id number] Umweltech, Inc. (MOD) complet ed SARS-COV- 2 (COVID-19 ) vaccine, mRNA, spike protein, LNP, preservat gauri free, 100 mcg or 50 mcg dose DoD influenza, injectable, quadrivalent- pf 2019 [id number] 150 Seqirus complet ed influenza , injectabl e, quadrival ent-pf 12/31/19 Given Ambulat ory Pharmac y Influenza, injectable, quadrivalent, preservative free 1 2019 [id number] 077 150 Seqirus (SEQ) complet ed Influenza , injectabl e, quadrival ent, preservat gauri free DoD influenza, injectable, quadrivalent- pf 2018 [id number] 520 150 Seqirus complet ed influenza , injectabl e, quadrival ent-pf 11/20/18 Given Ambulat ory Pharmac y Influenza, injectable, quadrivalent, preservative free 17 2018 [id number] 520 150 Seqirus (SEQ) complet ed Influenza [...] typhoid Vi capsular polysaccharid e vac 2017 [id number] sanofi pasteur complet ed typhoid Vi capsular polysacch aride vac 06/20/17 Given Ambulat ory Pharmac y TYPHOID, VICPS 2017 101 complet ed HISTORICA L INFORMATI ON - FROM OTHER REGISTRY, typhoid Vi capsular polysacch aride vaccine Lot#: [id number] Mfr: SANOFI PASTEUR [facility] typhoid Vi capsular polysaccharid e vaccine 5 2017 [id number] Sanofi Pasteur ([facility] [...] virus vaccine DoD influenza, seasonal, injectable 2016 [id number] complet ed influenza , seasonal, injectabl e 12/13/16 Given Ambulat ory Pharmac y Influenza, seasonal, injectable, preservative free 2016 NEW, () Not Given Influenza , seasonal, injectabl e, preservat gauri free DoD Influenza, seasonal, injectable 1 2016 [id number] 141 Transcribed (TRS) complet ed Influenza , [...] gauri DoD influenza, live, intranasal,qu adrivalent 2014 [id number] MethylGeneune Inc comple t ed influenza , live, intranasa l,quadriv alent 11/20/14 Given Ambulat ory Pharmac y influenza, live, intranasal, quadrivalent 13 2014 [id number] 149 [employer] Online [employer] Inc. (MED) complet ed influenza , live, intranasa l, quadrival ent DoD influenza, live, intranasal,qu adrivalent 2013 [id number] 149 Expa Inc comple t ed influenza , live, intranasa l,quadriv alent 12/14/13 Given Ambulat ory Pharmac y influenza, live, intranasal, quadrivalent 12 2013 [id number] 149 [employer] Inc. (MED) complet ed influenza , live, intranasa l, quadrival ent DoD influenza, live, intranasal,qu adrivalent 2012 [id number] 149 Mediune Inc comple t ed influenza , live, intranasa l,quadriv alent 10/13/12 Given Ambulat ory Pharmac y influenza, live, intranasal, quadrivalent 0 2012 [id number] 149 [employer] Inc. (MED) complet ed influenza , live, intranasa l, quadrival ent DoD typhoid Vi capsular polysaccharid e vac 2012 [id number] sanofi pasteur complet ed typhoid Vi capsular polysacch aride vac 08/16/12 Given Ambulat ory Pharmac y anthrax vaccine 2012 [id number] Emergent Biosolutions complet ed anthrax vaccine 08/16/12 Given Ambulat ory Pharmac y ANTHRAX VACCINE, UNSPECIFIED 7 2012 319 complet ed HISTORICA L INFORMATI ON - FROM OTHER REGISTRY, Lot#: [id number] [facility] anthrax vaccine 7 2012 [id number] Emergent [employer] [place] ([facility]) complet ed anthrax vaccine DoD typhoid Vi capsular polysaccharid e vaccine 4 2012 [id number] Sanofi Pasteur (PMC) complet ed typhoid Vi capsular polysacch aride vaccine DoD influenza virus vaccine, live 2011 [id number] MediBoston [employer] Inc comple t ed influenza virus vaccine, live 10/30/11 Given Ambulat ory Pharmac y influenza virus vaccine, live, attenuated, for intranasal use 0 2011 [id number] 111 [employer] Inc. (MED) complet ed influenza virus vaccine, live, attenuate d, for intranasa l use DoD tetanus, diphtheria, acellular pertu is 2011 [id number] [facility] ed tetanus, diphtheri a, acellular pertussis 05/22/11 Given Ambulat ory Pharmac y TDAP 2011 115 complet ed HISTORICA L INFORMATI ON - FROM OTHER REGISTRY, tetanus toxoid, reduced diphtheri a toxoid, and acellular pertussis vaccine, adsorbed Lot#: [id number] A [facility] tetanus toxoid, reduced diphtheria toxoid, and acellular pertu is vaccine, adsorbed 0 2011 [id number] 115 [facility] (SKB) complet ed tetanus toxoid, reduced diphtheri a toxoid, and acellular pertussis vaccine, adsorbed DoD anthrax vaccine 2011 [id number] Emergent [employer] complet ed anthrax vaccine 03/09/11 Given Ambulat ory Pharmac y typhoid Vi capsular polysaccharid e vac 2011 [id number] 101 sanofi pasteur complet ed typhoid Vi capsular polysacch aride vac 03/09/11 Given Ambulat ory Pharmac y ANTHRAX VACCINE, UNSPECIFIED 6 2011 319 complet ed HISTORICA L INFORMATI ON - FROM OTHER REGISTRY, Lot#: [id number] [facility] TYPHOID, VICPS 3 2011 101 complet ed HISTORICA L INFORMATI ON - FROM OTHER REGISTRY, typhoid Vi capsular polysacch aride vaccine Lot#: [id number] Mfr: SANOFI PASTEUR [facility] anthrax vaccine 6 2011 [id number] [employer] [place] ([facility]) complet ed anthrax vaccine DoD typhoid Vi capsular polysaccharid e vaccine 3 2011 [id number] 101 Sanofi Pasteur (PMC) complet ed typhoid Vi capsular polysacch aride vaccine DoD influenza virus vaccine, live 2010 [id number] 111 Expa Inc comple t ed influenza virus vaccine, live 11/04/10 Given Ambulat ory Pharmac y influenza virus vaccine, live, attenuated, for intranasal use 9 2010 [id number] 111 [employer] Inc. (MED) complet ed influenza virus vaccine, live, attenuate d, for intranasa l use [facility] influenza virus vaccine,split 2009 [id number] 15 sanofi pasteur complet ed influenza virus vaccine,s plit 11/04/09 Given Ambulat ory Pharmac y influenza virus vaccine, split virus (incl. purified surface antigen)-reti red CODE 8 2009 [id number] 15 Sanofi Pasteur (PMC) complet ed influenza virus vaccine, split virus (incl. purified surface antigen)- retired CODE DoD anthrax vaccine 2009 [id number] Emergent [employer] complet ed anthrax vaccine 09/04/09 Given Ambulat ory Pharmac y anthrax vaccine 5 2009 [id number] [employer] [place] (MIP) complet ed anthrax vaccine DoD Novel influenza-H1N 1-09,pf,injec table 2009 [id number] 1 126 Novartis Pharmaceutica ls complet ed Novel influenza -[id number], pf,inject able 02/25/09 Given Ambulat ory Pharmac y Novel influenza-H1N 1-09, preservative- free, injectable 1 2009 [id number] 1 126 Novartis Pharmaceutica l [place]hawn. (NOV) complet ed Novel influenza -[id number], preservat gauri-free, injectabl e DoD influenza virus vaccine, live 2008 [id number] 111 Expa Inc comple t ed influenza virus vaccine, live 10/26/08 Given Ambulat ory Pharmac y influenza virus vaccine, live, attenuated, for intranasal use 1 2008 [id number] 111 [employer], [employer]. (MED) complet ed influenza virus vaccine, live, attenuate d, for intranasa l use DoD anthrax vaccine 2008 [id number] Emergent Biosolutions complet ed anthrax vaccine 03/27/08 Given Ambulat ory Pharmac y ANTHRAX VACCINE, UNSPECIFIED 5 2008 319 complet ed HISTORICA L INFORMATI ON - FROM OTHER REGISTRY, Lot#: [id number] [facility] anthrax vaccine 5 2008 [id number] [employer] [place] ([facility]) complet ed anthrax vaccine DoD influenza virus vaccine,split 2007 [id number] 15 CSL Behring complet ed influenza virus vaccine,s plit 11/14/07 Given Ambulat ory Pharmac y influenza virus vaccine, split virus (incl. purified surface antigen)-reti red CODE 1 2007 [id number] 15 CS[employer], Inc. (CSL) complet ed influenza virus vaccine, split virus (incl. purified surface antigen)- retired CODE DoD anthrax vaccine 2007 [id number] Emergent Biosolutions complet ed anthrax vaccine 09/12/07 Given Ambulat ory Pharmac y ANTHRAX VACCINE, UNSPECIFIED 4 2007 319 complet ed HISTORICA L INFORMATI ON - FROM OTHER REGISTRY, Lot#: [id number] [facility] anthrax vaccine 4 2007 [id number] Emergent [employer] [place] (MIP) complet ed anthrax vaccine DoD anthrax vaccine 2007 [id number] Emergent Biosolutions complet ed anthrax vaccine 03/30/07 Given Ambulat ory Pharmac y ANTHRAX VACCINE, UNSPECIFIED 3 2007 319 complet ed HISTORICA L INFORMATI ON - FROM OTHER REGISTRY, Lot#: [id number] [facility] anthrax vaccine 3 2007 [id number] [employer] [place] (MIP) complet ed anthrax vaccine DoD anthrax vaccine 2007 [id number] Emergent Biosolutions complet ed anthrax vaccine 03/10/07 Given Ambulat ory Pharmac y ANTHRAX VACCINE, UNSPECIFIED 2 2007 319 complet ed HISTORICA L INFORMATI ON - FROM OTHER REGISTRY, Lot#: [id number] [facility] anthrax vaccine 2 2007 [id number] [employer] [place] (MIP) complet ed anthrax vaccine DoD anthrax vaccine 2007 [id number] Emergent [employer] complet ed anthrax vaccine 02/21/07 Given Ambulat ory Pharmac y ANTHRAX VACCINE, UNSPECIFIED 1 2007 319 complet ed HISTORICA L INFORMATI ON - FROM OTHER REGISTRY, Lot#: [id number] [facility] anthrax vaccine 1 2007 [id number] [employer] [place] (MIP) complet ed anthrax vaccine DoD vaccinia (smallpox) vaccine 0 2007 75 () Not Given vaccinia (smallpox ) vaccine DoD influenza virus vaccine, live 2006 [id number] 111 Epunchit comple t ed influenza virus vaccine, live 01/10/07 Given Ambulat ory Pharmac y influenza virus vaccine, live, attenuated, for intranasal use 1 2006 [id number] 111 MedImmune, Inc. (MED) complet ed influenza virus vaccine, live, attenuate d, for intranasa l use DoD typhoid vaccine, live, oral 2006 [id number] [employer] [place] [employer] [place] complet ed typhoid vaccine, live, oral 03/05/06 Given Ambulat ory Pharmac y typhoid vaccine, live, oral 1 2006 [id number] Aditazz ([facility]) complet ed typhoid vaccine, live, oral DoD influenza virus vaccine, live 2005 [id number] 111 [facility] [place] t ed influenza virus vaccine, live 12/04/05 Given Ambulat ory Pharmac y influenza virus vaccine, live, attenuated, for intranasal use 1 2005 [id number] C8 Sciencesune, Inc. (MED) complet ed influenza virus vaccine, live, attenuate d, for intranasa l use DoD influenza virus vaccine, live 2004 [id number] 111 [facility] t ed influenza virus vaccine, live 12/25/04 Given Ambulat ory Pharmac y influenza virus vaccine, live, attenuated, for intranasal use 1 2004 [id number] 111 [employer] Inc. (MED) complet ed influenza virus vaccine, live, attenuate d, for intranasa l use DoD influenza virus vaccine, live 2004 [id number] 111 [facility] t [facility] influenza virus vaccine, live 03/05/04 Given Ambulat ory Pharmac y typhoid Vi capsular polysaccharid e vac 2004 [id number] 101 sanofi pasteur complet ed typhoid Vi capsular polysacch aride vac 03/05/04 Given Ambulat ory Pharmac y typhoid Vi capsular polysaccharid e vaccine 0 2004 [id number] 101 Sanofi Pasteur ([facility]) complet ed typhoid Vi capsular polysacch aride vaccine DoD influenza virus vaccine, live, attenuated, for intranasal use 0 2004 [id number] 111 MedIDeskGodune, Inc. (MED) complet ed influenza virus vaccine, live, attenuate d, for intranasa l use DoD hepatitis A-hepatitis B vaccine 2003 [id number] 104 [facility] complet ed hepatitis A-hepatit is B vaccine 12/07/03 Given Ambulat ory Pharmac y HEP A-HEP B 3 2003 104 complet ed HISTORICA L INFORMATI ON - FROM OTHER REGISTRY, hepatitis A and hepatitis B vaccine Lot#: [id number] [facility] hepatitis A and hepatitis B vaccine 3 2003 [id number] 104 SaadKline (SKB) complet ed hepatitis A and hepatitis B vaccine DoD hepatitis A-hepatitis B vaccine 2003 [id number] 104 GlaxoSmithKli ne complet ed hepatitis A-hepatit is B vaccine 07/07/03 Given Ambulat ory Pharmac y HEP A-HEP B 2 2003 104 complet ed HISTORICA L INFORMATI ON - FROM OTHER REGISTRY, hepatitis A and hepatitis B vaccine Lot#: [id number] [facility] hepatitis A and hepatitis B vaccine 2 2003 [id number] 104 SaadKline (SK) complet ed hepatitis A and hepatitis B vaccine DoD hepatitis A-hepatitis B vaccine 2003 [id number] 6 104 GlaxoSmithKli ne complet ed hepatitis A-hepatit is B vaccine 06/06/03 Given Ambulat ory Pharmac y HEP A-HEP B 1 2003 104 complet ed HISTORICA L INFORMATI ON - FROM OTHER REGISTRY, hepatitis A and hepatitis B vaccine Lot#: [id number] [facility] measles, mumps and rubella virus vaccine 0 2003 03 () Not Given measles, mumps and rubella virus vaccine DoD varicella virus vaccine 1 2003 21 () Not Given varicella virus vaccine DoD hepatitis A and hepatitis B vaccine 1 2003 [id number] 104 SaadKline (SKB) complet ed hepatitis A and hepatitis B vaccine DoD poliovirus vaccine, inactivated 2003 [id number] sanofi pasteur complet ed polioviru s vaccine, inactivat ed 06/01/03 Given Ambulat ory Pharmac y tetanus-dipht h toxoids (Td) adult/adol 2003 [id number] sanofi pasteur complet ed tetanus-d iphth toxoids (Td) adult/ado l 06/01/03 Given Ambulat ory Pharmac y tuberculin purified protein derivative 2003 [id number] sanofi pasteur complet ed tuberculi n purified protein derivativ e 06/01/03 Given Ambulat ory Pharmac y meningococcal polysaccharid e (MPSV4) 2003 [id number] sanofi pasteur complet ed meningoco ccal polysacch aride (MPSV4) 06/01/03 Given Ambulat ory Pharmac y influenza virus vaccine, whole virus 2003 [id number] [employer] ls complet ed influenza virus vaccine, whole virus 06/01/03 Given Ambulat ory Pharmac y MENINGOCOCCAL MPSV4 2003 32 complet ed HISTORICA L INFORMATI ON - FROM OTHER REGISTRY, meningoco ccal polysacch aride vaccine (MPSV4) Lot#: [id number] Mfr: SANOFI PASTEUR [facility] POLIO, UNSPECIFIED FORMULATION 2003 89 complet ed HISTORICA L INFORMATI ON - FROM OTHER REGISTRY, Sanofi Pasteur Lot#: [id number] [facility] TD(ADULT) UNSPECIFIED FORMULATION 2003 139 complet ed HISTORICA L INFORMATI ON - FROM OTHER REGISTRY, tetanus and diphtheri a toxoids, adsorbed, preservat gauri free, for adult use (2 Lf of tetanus toxoid and 2 Lf of diphtheri a toxoid) Lot#: [id number] Mfr: SANOFI PASTEUR [facility] tetanus and diphtheria toxoids, adsorbed, preservative free, for adult use (2 Lf of tetanus toxoid and 2 Lf of diphtheria toxoid) 0 2003 [id number] Sanofi Pasteur ([facility]) complet ed tetanus and diphtheri a toxoids, adsorbed, preservat gauri free, for adult use (2 Lf of tetanus toxoid and 2 Lf of diphtheri a toxoid) DoD poliovirus vaccine, inactivated 0 2003 [id number] Sanofi Pasteur ([facility]) complet ed polioviru s vaccine, inactivat ed DoD influenza virus vaccine, whole virus 0 2003 [id number] [employer] ([facility]) complet ed influenza virus vaccine, whole virus DoD meningococcal polysaccharid e vaccine (MPSV4) 0 2003 [id number] Sanofi Pasteur ([facility]) complet ed meningoco ccal polysacch aride vaccine (MPSV4) DoD Vital Signs Combined list of inpatient and outpatient Vital Signs from Department of Defense and Veterans Affairs, ranging from 12 months to all on record, depending upon the facility. Vital Sign Value Date Comments Source SYSTOLIC BLOOD PRESSURE 160 05/23/19 25 13:51:19 [facility] DIASTOLIC BLOOD PRESSURE 100 025 13:51:19 [facility] PAIN 5 05/22/2024 13:51:19 [facility] SYSTOLIC BLOOD PRESSURE 144 03/02/19 25 15:33:11 [...] DC Date Status Disposition Source [employer]) TELE CONSULT [id number] chest congest ion with fever KATE SERGIO 03/23 [employer](F amily Practic e Red) [employer](Int Med Clinic) OUTPATIENT [id number] URI symptom s PITER MALDONADO A 03/23 Released w/o Limitations [employer](I nt Med Clinic) [employer](Fli ght Medicine Clinic) OUTPATIENT [id number] [facility] part 2 YAYA SANTOS 04/27 Released w/o Limitations [employer](F light Medicin e Clinic) [employer]([facility]am [facility] Practice Red) TELE CONSULT [id number] foot swollen and cant walk on it; pt has an appt tomorro w but ... MODESTO HANKINS 05/05 [employer](F amily Practic e Red) [employer]([facility] Blue) OUTPATIENT [id number] swollen painful R foot RADDEN, JAIME D 05/05 Released w/o Limitations [employer](F amily Practic e Blue) [employer]([facility] Practice Red) OUTPATIENT [id number] pt injured r foot pain ful when put pressur e painful to touch SERGIO LOVE 05/06 Released w/o Limitations [employer](F amily Practic e Red) [employer](Opt ometry Clinic) OUTPATIENT [id number] possibl e foreign body LATIA CARVAJAL Margareth 05/06 Released w/o Limitations [employer](O ptometr y Clinic) [employer]([facility]) TELE CONSULT [id number] right foot pain RADDEN, JAIME D 05/08 [employer](F amily Practic e Blue) [employer]([facility]) OUTPATIENT [id number] f/u on gout RADDEN, JAIME D 05/10 Released w/o Limitations [employer](F amily Practic e Blue) [facility](Fam mara Practice Blue) OUTPATIENT [id number] gout RADDEN, JAIME D 05/13 Released w/o Limitations [employer](F amily Practic e Blue) [facility](Fam mara Practice Blue) TELE CONSULT [id number] CONCERN S ABOUT DOM ZAMUDIO 05/14 [employer](F amily Practic e Blue) [employer]([facility] Practice Red) OUTPATIENT [id number] profile and med refill AKTE, SERGIO 07/20 Released with Work/Duty Limitations [employer](F amily Practic e Red) [employer]([facility]) TELE CONSULT [id number] referra l for orthope dic special ist for ankle KATE, SERGIO 08/02 [employer](F amily Practic e Red) [employer]([facility] Practice Red) TELE CONSULT [id number] pt was sent to orthope dic and pt was giving a out of work clinton HANKINSMODESTO 09/09 [employer](F amily Practic e Red) [employer]([facility] Practice Red) TELE CONSULT [id number] pt needs med refill ADALET 60mg pt has 5 pills left KATE, SERGIO 09/16 [employer](F amily Practic e Red) [employer]([facility] Practice Red) OUTPATIENT [id number] f/u htn (adalat increas ed last appt) KATE, SERGIO 10/13 Released w/o Limitations [employer](F amily Practic e Red) [employer]([facility] Red) OUTPATIENT [id number] oversea s DEBBIE Boone 12/13 Released w/o Limitations [employer](F amily Practic e Red) [employer]([facility] Practice Red) OUTPATIENT [id number] pt pcsing in eeds CONOR Blanchard 01/28 Released w/o Limitations [employer](F amily Practic e Red) [employer]([facility] Practice Red) OUTPATIENT [id number] medical EDIE Rinaldi 03/09 Released w/o Limitations [employer](F amily Practic e Red) [facility](Fam mara Practice Red) OUTPATIENT [id number] F/U from appt Feb 22--med ical EDIE Rinaldi 03/23 Released w/o Limitations [employer](F amily Practic e Red) [employer]([facility] Red) OUTPATIENT [id number] follow up on bp EDIE IBANEZSen 03/30 Released w/o Limitations [employer](F amily Practic e Red) [employer]([facility] Practice Red) TELE CONSULT [id number] Pt has lian hopson about pha and hiv test HANKINS, MODESTO 04/08 [employer](F amily Practic e Red) [employer](PHA Cell) OUTPATIENT [id number] pha due oversea s dima ce JOIE Barrientos 04/11 Released w/o Limitations [employer](P BUENO Cell) [employer]([facility]) OUTPATIENT [id number] occp pe/stru ctural MX YAYA SANTOS E Rahul 04/12 Released w/o Limitations [employer](F light Medicin e Clinic) [employer]([facility]) OUTPATIENT [id number] Inproce ssing Record Review EDITH DESAI 07/21 Released w/o Limitations [employer]([facility]) [employer]([facility] Practice [facility]) OUTPATIENT [id number] PHA JOHANNY AGUILERA 04/27 Released w/o Limitations [employer]( amily Practic e Clinic) [employer]([facility]) TELE CONSULT [id number] f/u pha UZBEK, UN DIAN 05/01 [employer]( amily Practic e Clinic) [employer]([facility]) OUTPATIENT [id number] f/u 3day bp check UZBEK, UN DIAN 05/04 Released w/o Limitations [employer](F amily Practic e Clinic) [employer]([facility]) OUTPATIENT [id number] [facility]- AUDIOGR AM,MED HY,PHY EX,WORK PLACE EXP,RES P QUEST JUANJO CLEARY 07/05 Released w/o Limitations [employer]( light Surgeon Office) [employer]([facility] Practice Clinic) OUTPATIENT [id number] JANNA Garcia 08/03 Sick at Home/Quarter s [employer]( amily Practic e Clinic) [employer]([facility]) OUTPATIENT [id number] - MISSY MCKEON 11/05 Released w/o Limitations [employer](F amily Practic e Clinic) [employer]([facility]) OUTPATIENT [id number] FT-BRISA BOURGEOIS 11/06 Sick at Home/Quarter s [employer](F amily Practic e Clinic) [employer]([facility]) OUTPATIENT [id number] ft nasal congest ion product gauri cough clear sore throat JONEL BUSBY 11/09 Sick at Home/Quarter s [employer](F amily Practic e Clinic) [employer]([facility]) DENTAL [id number] Exam JOSE RAFAEL MAGAÑA 12/21 Released w/o Limitations [employer](D ental Clinic) [employer]([facility]) DENTAL [id number] DEION Pardo 12/21 Released w/o Limitations [employer](D ental Clinic) [employer]([facility]) TELE CONSULT [id number] VASECTO MY CONSULT XIANG MATHUR 01/28 [employer](F amily Practic e Clinic) [employer]([facility]) OUTPATIENT [id number] Vas Consult XIANG MATHUR 03/01 Released w/o Limitations [employer](F amily Practic e Clinic) [employer]([facility]) OUTPATIENT [id number] F/U HBP, LABS XIANG MATHUR 04/02 Released w/o Limitations [employer](F amily Practic e Clinic) [employer]([facility]) OUTPATIENT [id number] PHA ANN MARIE COLÓN R 04/18 Released w/o Limitations [employer](P BUENO Cell) [employer]([facility]) TELE CONSULT [id number] CONLEAV E FOR SURGERY BRYANNA ADORNO R 04/25 [employer](F amily Practic e Clinic) [employer]([facility] Practice [facility]) TELE CONSULT [id number] con lv or quarter s XIANG MATHUR 08/12 [employer](F amily Practic e Clinic) [employer]([facility] Practice [facility]) OUTPATIENT [id number] Per XIANG Fitzpatrick 08/13 Released w/o Limitations [employer](F amily Practic e Clinic) [employer]([facility] Practice [facility]) TELE CONSULT [id number] F/U BLOOD PRESSMARK KILLIAN 09/02 [employer](F amily Practic e Clinic) [employer]([facility] Practice [facility]) TELE CONSULT [id number] Deploym ent ELMER Fofana 09/04 [employer](F amily Practic e Clinic) [employer]([facility]) OUTPATIENT [id number] finger pain x months/ pt request ed alterna abraham pcm. (pt's pcm on leave) MAYITO CHAVEZ 09/05 Released w/o Limitations [employer](F amily Practic e Clinic) [employer]([facility]) TELE CONSULT [id number] CALL BACK FOR DEPLOYM ENT PAPERWO ELMER BORDEN 09/[employer](F amily Practic e Clinic) [employer](Mai t Surgeon Office) OUTPATIENT [id number] [facility] audio normal no exam needed RAMILA DAMIAN 09/12 Released w/o Limitations [employer](F light Surgeon Office) [employer](Mai t Surgeon Office) OUTPATIENT [id number] [facility] STERLING GEE 09/20 Released w/o Limitations [employer](F light Surgeon Office) [employer]([facility] Practice [facility]) TELE CONSULT [id number] RETRO REFERRA L CHAPIS LEE 12/06 Referred for Appointment [employer](F amily Practic e Clinic) [employer]([facility] Practice [facility]) TELE CONSULT [id number] MARK Stinson 12/06 [employer](F amily Practic e Clinic) [employer]([facility] Practice [facility]) TELE CONSULT [id number] RETRO REFERRA L MISSY CORTEZ 12/12 Referred for Appointment [employer](F amily Practic e Clinic) [employer]([facility]) TELE CONSULT [id number] NAUSEA/ BUENO X TODAY CHAPIS FULTON 12/24 Referred for Appointment [employer](F amily Practic e Clinic) [employer]([facility]) TELE CONSULT [id number] work excuse/ quarter s CANDY TOPETE 12/24 [employer](F amily Practic e Clinic) [employer]([facility]) TELE CONSULT [id number] Quarter s [employer] CANDY TOPETE 01/03 [employer](F amily Practic e Clinic) [employer]([facility]) OUTPATIENT [id number] NVD, BUENO, chills -FT- JUANJO FULTON 01/24 Sick at Home/Quarter s [employer](F amily Practic e Clinic) [employer]([facility]) OUTPATIENT [id number] ON GOING RASH X 1 MTH //POSSI BLE DERMATO LOGY REFERBRYANNA CHAVEZ 02/05 Released w/o Limitations [employer](F amily Practic e Clinic) [employer]([facility]) TELE CONSULT [id number] CHAPIS Portillo 02/18 Referred for Appointment [employer](F amily Practic e Clinic) [employer]([facility]) OUTPATIENT [id number] SORE THROAT, HEADACH E, FEVER, CHILLS TANNER VILLASEÑOR 02/28 Released w/o Limitations [employer](F amily Practic e Clinic) [employer]([facility]) TELE CONSULT [id number] KEENAN SHERIFF 03/11 Referred for Appointment [employer] [facility](F amily Practic e Clinic) [employer]([facility]) TELE CONSULT [id number] NURSE CONSULT /REACTI ON TO MEDS KEENAN SHERIFF 03/20 [employer](F amily Practic e Clinic) [employer]([facility]) OUTPATIENT [id number] sore throat/ med side effects CANDY TOPETE 03/24 Released w/o Limitations [employer](F amily Practic e Clinic) [employer]([facility] Practice Clinic) OUTPATIENT [id number] MARK Benedict 04/21 Sick at Home/Quarter s [employer](F amily Practic e Clinic) [employer]([facility]) OUTPATIENT [id number] PHA/EMS VICKIE SIU Lis 05/29 Released w/o Limitations [employer](P BUENO Cell) [employer](Fam Med Cl Tm B Non-Ad) TELE CONSULT [id number] ACTIVE DUTY/ RIGHT CALF PAIN KEENAN SHERIFF 08/19 [employer](F am Med Cl Tm B Non-Ad) [employer]([facility] Practice Clinic) OUTPATIENT [id number] right calf pain since last y CANDY TOPETE 08/20 Released w/o Limitations [facility](F amily Practic e Clinic) [employer](Fam Med Cl Tm B Non-Ad) TELE CONSULT [id number] LIAN HOLT PROFILE /WAS SEEN YESTERD AY KEENAN SHERIFF 08/21 [employer](F am Med Cl Tm B Non-Ad) [employer](Fam Med Cl Tm B Non-Ad) TELE CONSULT [id number] profile extensi on request KISHORE MARROQUIN 09/05 [employer](F am Med Cl Tm B Non-Ad) [employer](Fam Med Cl Tm B Non-Ad) TELE CONSULT [id number] PROFILE EXTENSI ON CARAKISHORE O 09/08 [employer](F am Med Cl Tm B Non-Ad) [employer](Fam Med Cl Tm B Non-Ad) OUTPATIENT [id number] fu right leg / profile CANDY TOPETE 09/17 Released w/o Limitations [employer](F am Med Cl Tm B Non-Ad) [employer]([facility] Affiliate s) OUTPATIENT [id number] F/U PROFILE JUANJO FULTON 10/03 Released w/o Limitations [employer](F HI Affilia nikolay) [employer](y sical Therapy Clinic) OUTPATIENT [id number] SUMIT ROSEN 10/03 Released with Work/Duty Limitations [employer](P hysical Therapy Clinic) [employer](Phy sical Therapy Clinic) OUTPATIENT [id number] Rt lower leg pain MARCIAL, LUIS 10/09 Released with Work/Duty Limitations [employer](P hysical Therapy Clinic) [employer](Phy sical Therapy Clinic) OUTPATIENT [id number] NATALIIA GUERIN 10/14 Released with Work/Duty Limitations [employer](P hysical Therapy Clinic) [employer](Phy sical Therapy Clinic) OUTPATIENT [id number] MARCIAL, LUIS 10/16 Released with Work/Duty Limitations [employer](P hysical Therapy Clinic) [employer](Phy sical Therapy Clinic) OUTPATIENT [id number] BRISA GONZALEZ 10/28 Released with Work/Duty Limitations [employer](P hysical Therapy Clinic) [employer](Phy sical Therapy Clinic) OUTPATIENT [id number] SUMIT ROSEN 10/29 Released with Work/Duty Limitations [employer](P hysical Therapy Clinic) [employer](Fli ght Surgeon Office) OUTPATIENT [id number] [facility] Smith 11/21 Released w/o Limitations [employer](F light Surgeon Office) [employer](Phy sical Therapy Clinic) OUTPATIENT [id number] BRISA GONZALEZ 12/19 Released w/o Limitations [employer](P hysical Therapy Clinic) [employer](Phy sical Therapy Clinic) OUTPATIENT [id number] MARCIAL, LUIS 12/29 Released w/o Limitations [employer](P hysical Therapy Clinic) [employer](Phy sical Therapy Clinic) OUTPATIENT [id number] MARCIAL, LUIS 01/02 Released w/o Limitations [employer](P hysical Therapy Clinic) [employer](Phy sical Therapy Clinic) OUTPATIENT [id number] MARCIAL, LUIS 01/05 Released w/o Limitations [employer](P hysical Therapy Clinic) [employer](Phy sical Therapy Clinic) OUTPATIENT [id number] SUMIT ROSEN 01/26 Released with Work/Duty Limitations [employer](P hysical Therapy Clinic) [employer](Phy sical Therapy Clinic) OUTPATIENT [id number] LUIS MARCIAL 02/13 Released with Work/Duty Limitations [employer](P hysical Therapy Clinic) [employer](Phy sical Therapy Clinic) OUTPATIENT [id number] MARCIALLUIS MARCUS 02/20 Released with Work/Duty Limitations [employer](P hysical Therapy Clinic) [employer](Phy sical Therapy Clinic) OUTPATIENT [id number] NATALIIA GUERIN 03/10 Released with Work/Duty Limitations [employer](P hysical Therapy Clinic) [employer]([facility] Affiliate s) TELE CONSULT [id number] PRE DEPLOYM ENT JEDAN CE APR 14 2011 DAYTON LORA 03/13 [employer]([facility] Affilia nikolay) [employer](Phy sical Therapy Clinic) OUTPATIENT [id number] BRISA GONZALEZ 03/13 Released with Work/Duty Limitations [employer](P hysical Therapy Clinic) [employer](Phy sical Therapy Clinic) OUTPATIENT [id number] LUIS MARCIAL 03/16 Released with Work/Duty Limitations [employer](P hysical Therapy Clinic) [employer](Phy sical Therapy Clinic) OUTPATIENT [id number] SUMIT ROSEN E 04/10 Released with Work/Duty Limitations [employer](P hysical Therapy Clinic) [employer](Fam Med Cl Tm B Non-Ad) OUTPATIENT [id number] F/U PROFILE / MED REFROHIT GREER 05/24 Released w/o Limitations [employer](F am Med Cl Tm B Non-Ad) [employer]([facility] Team D) OUTPATIENT [id number] chest cold, hurt finger SKYLAR ARIAS 07/22 Released w/o Limitations [employer](O del cid [facility] Team D) [employer](Fam Med Cl Tm B Non-Ad) TELE CONSULT [id number] Notes Entered by: RICHARD CRYSTAL 03 Aug 2011 0810 ------- ------- ------- ------- -- Physica l Therapy ROHIT Stewart 08/02 [facility](F am Med Cl Tm B Non-Ad) [facility] s) TELE CONSULT [id number] Notes Entered by: Da WORKMAN 01 Dec 2011 1158 ------- ------- ------- ------- -- ER VISIT F/U MISSY CORTEZ 11/30 [facility]) [facility] Med Cl Tm B Non-Ad) TELE CONSULT [id number] Notes Entered by: Da WORKMAN 01 Dec 2011 1204 ------- ------- ------- ------- -- L. FOOT PAIN REYNA MOREL 11/30 [facility](F am Med Cl Tm B Non-Ad) [facility] s) OUTPATIENT [id number] left foot pain//c VENITA Kumar 12/02 Released w/o Limitations [facility](Fam Med Cl Tm B Non-Ad) TELE CONSULT [id number] Notes Entered by: REYNA MOREL 24 Dec 2011 1339 ------- ------- ------- ------- -- Con leave request REYNA MOREL 12/23 [facility] [employer] [facility](F am Med Cl Tm B Non-Ad) [facility] s) TELE CONSULT [id number] Notes Entered by: STACY LIN 29 Dec 2011 0941 ------- ------- ------- ------- -- CON LEAVE EXT REYNA MOREL 12/28 [facility] nikolay) [facility](Fam Med Cl Tm B Non-Ad) TELE CONSULT [id number] Notes Entered by: ROHIT CLARK 11 Jan 2012 1712 ------- ------- ------- ------- -- ROHIT Tan 01/10 [facility] Group(F am Med Cl Tm B Non-Ad) [facility] [employer](Fam Med Cl Tm B Non-Ad) OUTPATIENT [id number] nausea diarrhe a some lighthe adednes s x 3 days// DEJA LEOS 04/29 Sick at Home/Quarter s [facility](F am Med Cl Tm B Non-Ad) [facility]) OUTPATIENT [id number] Notes Entered by: Da WORKMAN 02 May 2012 0935 ------- ------- ------- ------- -- f/u n/DELGADO Glover 05/02 Sick at Home/Quarter s [facility]( light Surgeon Office) [facility](Fam Med Cl Tm B Non-Ad) TELE CONSULT [id number] Notes Entered by: KAMERON GE 30 May 2012 1304 ------- ------- ------- ------- -- ACTIVE DUTY PT WITH RASH/ RIGHT ARM MISSY CORTEZ 05/30 Medical Group(F am Med Cl Tm B Non-Ad) [facility](Fam Med Cl Tm B Non-Ad) OUTPATIENT [id number] nurse clinic - rash// MISSY CORTEZ 05/30 Released w/o Limitations [facility](F am Med Cl Tm B Non-Ad) [facility]) OUTPATIENT [id number] [facility] BATESBEVERLY GARZA 06/06 Released w/o Limitations [employer](F light Surgeon Office) [facility](Fam Med Cl Tm B Non-Ad) TELE CONSULT [id number] Notes Entered by: ALIYA MCKEON 04 Jul 2012 1012 ------- ------- ------- ------- -- Network Results -RHEUMA TOLOGY 05/28 MISSY CORTEZ 07/04 [employer](F am Med Cl Tm B Non-Ad) [employer]([facility]) OUTPATIENT [id number] ZACHARY MARCH 07/12 Released w/o Limitations [employer](P BUENO Cell) [employer](Fam Med Cl Tm B Non-Ad) OUTPATIENT [id number] MED CK, BP CK ROHIT CLARK 08/03 Released w/o Limitations [employer](F am Med Cl Tm B Non-Ad) [employer](Dep loyment Health Assessmen ts) OUTPATIENT [id number] Pre BREE VILLALOBOS 08/16 Released w/o Limitations [employer](D eployme Health Assessm ents) [employer]([facility]) OUTPATIENT [id number] Notes Entered by: William ROSE 06 Sep 2012 1231 ------- ------- ------- ------- -- VAIBHAV STOKES 09/06 Released w/o Limitations [employer]([facility]) [employer](Fam Med Cl Tm B Non-Ad) TELE CONSULT [id number] Notes Entered by: NEELAM CONROY 14 Sep 2012 1318 ------- ------- ------- ------- -- PRE DEPLOY ENT ROHIT MARTINES 09/14 [employer](F am Med Cl Tm B Non-Ad) [facility] OUTPATIENT [id number] Theater Provider 04/27 Released w/o Limitations Theater Fac[facility] [employer](Fam Med Cl Tm B Non-Ad) TELE CONSULT [id number] Notes Entered by: KAMERON GE 04 Sep 2013 0837 ------- ------- ------- ------- -- ACTIVE DUTY/ VOMITIN G/ NAUSEA KEENAN SHERIFF 09/04 Referred for Appointment [facility](F am Med Cl Tm B Non-Ad) [facility](Fli ght Surgeon Office) OUTPATIENT [id number] [facility] SARAH JONES 09/04 Released w/o Limitations [facility](F light Surgeon Office) rd [facility](Fam Med Cl Tm B Non-Ad) OUTPATIENT [id number] BP med refill ROHIT CLARK 09/06 Released w/o Limitations [facility](F am Med Cl Tm B Non-Ad) [facility] OUTPATIENT [id number] sleep LONGBRENDADA Hitesh 09/06 Released w/o Limitations [facility](I ntegrat ed Behavio ral [facility] Cl[facility]) rd [facility] OUTPATIENT [id number] DHA3, 40 min BREE HOLT 09/14 Released w/o Limitations [facility](D eployme nt Health Assessm ents) [facility]) OUTPATIENT [id number] PHA-WHA TO BE COMPLET DIANA CALDWELL 09/14 Released w/o [employer]itations [employer] [employer] [facility]ated [facility]) OUTPATIENT [id number] F/U sleep LONGDEANGELOVIDA L 09/22 Released w/o Limitations [employer](I ntegrat ed Behavio ral Hlth Cln) [facility] [employer](Fam Med Cl Tm B Non-Ad) TELE CONSULT [id number] Notes Entered by: KAMERON GE 22 Sep 2013 1527 ------- ------- ------- ------- -- ACTIVE DUTY/ PULLED GROIN WHILE RUNNING KEENAN SHERIFF 09/22 Referred for Appointment [facility] [employer](F am Med Cl Tm B Non-Ad) [employer](Fam Med Cl Tm B Non-Ad) OUTPATIENT [id number] left ROHIT Kinney 09/25 Released with Work/Duty Limitations [employer](F am Med Cl Tm B Non-Ad) [employer] OUTPATIENT [id number] F/U armand FORBESBRENDAFABIAN Proctor 09/28 Released w/o Limitations [employer](I ntegrat ed Behavio ral [facility] Cln) [employer](Fam Med Cl Tm B Non-Ad) TELE CONSULT [id number] Notes Entered by: KAMERON GE 20 Oct 2013 0946 ------- ------- ------- ------- -- ACTIVE DUTY/ POSSIBL E STREP THROAT KEENAN SHERIFF 10/20 Referred for Appointment [employer](F am Med Cl Tm B Non-Ad) [employer](Fam Med Cl Tm B Non-Ad) TELE CONSULT [id number] Notes Entered by: KEENAN SHERIFF 24 Oct 2013 1321 ------- ------- ------- ------- -- Lab results KEENAN SHERIFF 10/24 Referred for Appointment [employer](F am Med Cl Tm B Non-Ad) [employer](Fam Med Cl Tm B Non-Ad) TELE CONSULT [id number] Notes Entered by: Edgar PENA 01 Dec 2013 0743 ------- ------- ------- ------- -- ER Farhan/KEENAN GALLAGHER 12/01 Immediate Referral [employer](F am Med Cl Tm B Non-Ad) [employer](Fam Med Cl Tm B Non-Ad) OUTPATIENT [id number] f/u - left ROHIT Jones 12/04 Sick at Home/Quarter s [employer](F am Med Cl Tm B Non-Ad) [employer](Fam Med Cl Tm B Non-Ad) OUTPATIENT [id number] F/U ROHIT Vidal 12/08 Released w/o Limitations [employer](F am Med Cl Tm B Non-Ad) [employer](Fam Med Cl Tm B Non-Ad) TELE CONSULT [id number] Notes Entered by: KAMERON GE 18 Jan 2014 1033 ------- ------- ------- ------- -- ACTIVE DUTY/ PROFILE ISSUE [place] PITTMANPETTY Mirza 01/18 Referred for Appointment [employer](F am Med Cl Tm B Non-Ad) [employer](Fam Med Cl Tm B Non-Ad) TELE CONSULT [id number] Notes Entered by: BROOKE HERNADEZ 09 Mar 2014 1523 ------- ------- ------- ------- -- Out Process bertram DOHERTYTOYA FLOR N 03/09 Released to [employer](F am Med Cl Tm B Non-Ad) [place] [address](N G 104 Med Sq-FM) OUTPATIENT [id number] Notes Entered by: Antoinette GUILLEN II 16 Jul 2016 0730 ------- ------- ------- ------- -- Short [facility]-Fly [facility] MISTYDOT Espinoza 07/16 Released w/o Limitations [facility] [place] [address](A FNG 104 Med Sq-FM) [place] [address](AFN G 104 Med Sq-FM) OUTPATIENT [id number] Notes Entered by: MARCIA MEDEL 28 Nov 2016 0941 ------- ------- ------- ------- -- Med f/u 469 MARCIA MEDEL 11/28 Released with Work/Duty Limitations [facility] [place] [address](A FNG 104 Med Sq-FM) [place] [id number](AFN G 104 Med Sq-FM) OUTPATIENT [id number] Notes Entered by: LY JACKSON 15 Jan 2017 1329 ------- ------- ------- ------- -- Provide r f/u JOHANNY BRADEN 01/15 Released w/o Limitations [facility] [place] [address](A FNG 104 Med Sq-FM) [place] [address](AFN G 104 Med Sq-FM) OUTPATIENT [id number] Notes Entered by: TREY BULLOCK 18 Mar 2017 1320 ------- ------- ------- ------- -- JOSE RAFAEL SHORE 03/18 Released with Work/Duty Limitations [facility] [place] [address](A FNG 104 Med Sq-FM) [place] [address](AFN G 104 Med Sq-FM) OUTPATIENT [id number] Notes Entered by: HOLLIE ALTMAN 09 Apr 2017 1726 ------- ------- ------- ------- -- MARTHA Esparza 04/09 Released w/o Limitations [facility] [place] [address](A FNG 104 Med Sq-FM) [place] [address](AFN G 104 Med Sq-FM) OUTPATIENT [id number] Notes Entered by: TREY BULLOCK 16 Apr 2017 1511 ------- ------- ------- ------- -- Luis Enrique mirza MD note review JOSE RAFAEL BULLOCK 04/16 Released with Work/Duty Limitations [facility] [place] [address](A FNG 104 Med Sq-FM) [place] [address](AFN G 104 Med Sq-FM) OUTPATIENT [id number] 3 Notes Entered by: JOHANNY BRADEN 25 Feb 2018 1317 ------- ------- ------- ------- -- right Juan M harris tendoni tis, RTD JOHANNY BRADEN 02/25 [facility] Limitations [facility] [place] [place] [address](A FNG 104 Med Sq-FM) [place] [address](AFN G 104 Med Sq-FM) OUTPATIENT [id number] Notes Entered by: JOHANNY BRADEN 15 Apr 2018 1026 ------- ------- ------- ------- -- Occ/Ski n exam and PHAQ JOHANNY BRADEN 04/15 [facility]ased w/o Limitations [facility] [place] [address](A FNG 104 Med Sq-FM) [place] [address](AFN G 104 Med Sq-FM) OUTPATIENT [id number] 7 Notes Entered by: MARICRUZ MONTERO 21 May 2018 1040 ------- ------- ------- ------- -- 469 f/u MARTHA MONTERO 05/21 [facility]ased w/o Limitations [facility] [place] [address](A FNG 104 Med Sq-FM) [place] [address](AFN G 104 Med Sq-FM) OUTPATIENT [id number] 8 Notes Entered by: MARCIA MEDEL 17 Jun 2018 1443 ------- ------- ------- ------- -- right foot MARCIA MEDEL 06/17 Released with Work/Duty Limitations [facility] [place] [address](A FNG 104 Med Sq-FM) [place] [address](AFN G 104 Med Sq-FM) OUTPATIENT [id number] 5 Notes Entered by: MARCIA MEDEL 01 Oct 2018 0949 ------- ------- ------- ------- -- follow up juan m GARCIASMARCIA WILKINSON JULIA 10/01 Released with Work/Duty Limitations [facility] [place] [address](A FNG 104 Med Sq-FM) [facility], [facility](AFN G 104 Med Sq-FM) OUTPATIENT [id number] Notes Entered by: MARCIA MEDEL 08 Mar 2019 1449 ------- ------- ------- ------- -- R foot pain ANTOINE MEDELTIA DUMONT 03/08 Released with Work/Duty Limitations [facility] [place] [address](A FNG 104 Med Sq-FM) [facility], [place] [address](AFN G 104 Med Sq-FM) TELE CONSULT [id number] Notes Entered by: MARCIA MEDEL 09 Mar 2019 1020 ------- ------- ------- ------- -- foot pain MARCIA MEDEL 03/09 [facility] [place] [address](A FNG 104 Med Sq-FM) [place] [address](AFN G 104 Med Sq-FM) OUTPATIENT [id number] Notes Entered by: SCOTT HINDS 09 Mar 2019 1439 ------- ------- ------- ------- -- Annual MSE / OH exams ANTOINE MEDELTIA DUMONT 03/09 Released with Work/Duty Limitations [facility] [place] [address](A FNG 104 Med Sq-FM) [facility], [facility](AFN G 104 Med Sq-FM) OUTPATIENT [id number] Notes Entered by: MARCIA MEDEL 21 Mar 2019 1022 ------- ------- ------- ------- -- PHAQ MARCIA MEDEL 03/21 Released with Work/Duty Limitations [facility] [place] [address](A FNG 104 Med Sq-FM) [place] [address](AFN G 104 Med Sq-FM) TELE CONSULT [id number] Notes Entered by: MARCIA MEDEL 14 Apr 2019 1039 ------- ------- ------- ------- -- Op note MARCIA MEDEL 04/14 [facility] [place] [address](A FNG 104 Med Sq-FM) [facility], [facility](AFN G 104 Med Sq-FM) TELE CONSULT [id number] Notes Entered by: MARCIA MEDEL 21 Apr 2019 1409 ------- ------- ------- ------- -- foot pain MARCIA MEDEL 04/20 [facility] [place] [address](A FNG 104 Med Sq-FM) [place] [address](AFN G 104 Med Sq-FM) TELE CONSULT [id number] Notes Entered by: MARCIA MEDEL 26 Apr 2019 1249 ------- ------- ------- ------- -- R foot pain MARCIA MEDEL 04/25 [facility] [place] [address](A FNG 104 Med Sq-FM) [place] [address](AFN G 104 Med Sq-FM) TELE CONSULT [id number] Notes Entered by: MARCIA MEDEL 17 May 2019 1151 ------- ------- ------- ------- -- foot pain MARCIA MEDEL 05/16 [facility] [place] [address](A FNG 104 Med Sq-FM) [place] [address](AFN G 104 Med Sq-FM) TELE CONSULT [id number] Notes Entered by: TREY BULLOCK 08 Jun 2019 0912 ------- ------- ------- ------- -- MD note review JOSE RAFAEL BULLOCK 06/07 [facility] [place] [address](A FNG 104 Med Sq-FM) [place] [address](AFN G 104 Med Sq-FM) TELE CONSULT [id number] MARCIA MEDEL 08/14 [facility] [place] [address](A FNG 104 Med Sq-FM) [place] [address](AFN G 104 Med Sq-FM) TELE CONSULT [id number] Notes Entered by: MARCIA MEDEL 12 Oct 2019 1405 ------- ------- ------- ------- -- follow up MARCIA MEDEL 10/11 [facility] [place] [address](A FNG 104 Med Sq-FM) [place] [address](AFN G 104 Med Sq-FM) OUTPATIENT [id number] Notes Entered by: MARCIA MEDEL 24 Oct 2019 0916 ------- ------- ------- ------- -- Right foot pain MARCIA MEDEL 10/23 Released with Work/Duty Limitations [facility] [place] [address](A FNG 104 Med Sq-FM) [place] [address](AFN G 104 Med Sq-FM) TELE CONSULT [id number] Notes Entered by: MARCIA MEDEL 09 Jan 2020 1459 ------- ------- ------- ------- -- R foot pain MARCIA MEDEL 01/08 [facility] [place] [address](A FNG 104 Med Sq-FM) [facility], [place] [address](AFN G 104 Med Sq-FM) TELE CONSULT [id number] Notes Entered by: MARCIA MEDEL 05 Mar 2020 0904 ------- ------- ------- ------- -- R foot pain MARCIA MEDEL 03/05 [facility] [place] [address](A FNG 104 Med Sq-FM) [facility], [place] [address](AFN G 104 Med Sq-FM) OUTPATIENT [id number] MARCIA MEDEL 03/14 Released w/o Limitations [facility] [place] [address](A FNG 104 Med Sq-FM) [facility], [place] [address](AFN G 104 Med Sq-FM) OUTPATIENT [id number] Notes Entered by: MARCIA MEDEL 14 Mar 2020 1055 ------- ------- ------- ------- -- PHAQ MARCIA MEDEL 03/14 Released with Work/Duty Limitations [facility] [place] [address](A FNG 104 Med Sq-FM) [facility], [place] [address](AFN G 104 Med Sq-FM) TELE CONSULT [id number] Notes Entered by: MARCIA MEDEL 03 Apr 2020 1443 ------- ------- ------- ------- -- R foot pain MARCIA MEDEL 04/03 [facility] [place] [address](A FNG 104 Med Sq-FM) [facility], [place] [address](AFN G 104 Med Sq-FM) TELE CONSULT [id number] Notes Entered by: MARCIA MEDEL 09 Apr 2020 1056 ------- ------- ------- ------- -- return MARCIA MEDEL 04/09 [facility] [place] [address](A FNG 104 Med Sq-FM) [facility], [place] [address](AFN G 104 Med Sq-FM) OUTPATIENT [id number] Notes Entered by: RUTH SHIRLEY 24 Apr 2020 1247 ------- ------- ------- ------- -- Audiogr am /Respir ator Fit Test /[place] Questio nnaire/ HIV/Vit als/ Provide r([place]-Ph ysica MARCIA MEDEL 04/24 [facility]o Limitations [facility] [place] [address](A FNG 104 Med Sq-FM) [facility], [place] [address](AFN G 104 Med Sq-FM) TELE CONSULT [id number] Notes Entered by: MARCIA MEDEL 11 Jul 2020 1554 ------- ------- ------- ------- -- R foot pain MARCIA MEDEL 07/11 [facility](A FNG 104 Med Sq-FM) [facility], [place] [address](AFN G 104 Med Sq-FM) OUTPATIENT [id number] Notes Entered by: MARCIA MEDEL 10 Sep 2020 0936 ------- ------- ------- ------- -- MARCIA HOANG 09/10 [facility] [place] [address](A FNG 104 Med Sq-FM) [place] [address](AFN G 104 Med Sq-FM) TELE CONSULT [id number] 3 MARCIA MEDEL 12/10 [facility] [place] [address](A FNG 104 Med Sq-FM) [place] [address](AFN G 104 Med Sq-FM) TELE CONSULT [id number] MARCIA MEDEL 01/01 [facility] [place] [address](A FNG 104 Med Sq-FM) [place] [address](AFN G 104 Med Sq-FM) TELE CONSULT [id number] MARCIA MEDEL 01/07 [facility] [place] [address](A FNG 104 Med Sq-FM) [place] [address](AFN G 104 Med Sq-FM) TELE CONSULT [id number] MARCIA MEDEL 02/05 [facility] [place] [address](A FNG 104 Med Sq-FM) [place] [address](AFN G 104 Med Sq-FM) OUTPATIENT [id number] Notes Entered by: MARCIA MEDELCONNIE 25 Feb 2021 1434 ------- ------- ------- ------- -- JORGE LUIS MARCIA MEDELCONNIE 02/25 Released with Work/Duty Limitations [facility] [place] [address](A FNG 104 Med Sq-FM) [place] [address](AFN G 104 Med Sq-FM) OUTPATIENT [id number] Notes Entered by: SARAH MCPHERSON 24 Apr 2021 1402 ------- ------- ------- ------- -- [facility]SE RAFAEL Baig 04/24 Released with Work/Duty Limitations [facility] [place] [address](A FNG 104 Med Sq-FM) [place] [address](AFN G 104 Med Sq-FM) TELE CONSULT [id number] MARCIA MEDEL NOONE 09/24 [facility] [place] [address](A FNG 104 Med Sq-FM) [place] [address](AFN G 104 Med Sq-FM) TELE CONSULT [id number] MARCIA MEDEL NOONE 10/22 [facility] [place] [address](A FNG 104 Med Sq-FM) [place] [address](AFN G 104 Med Sq-FM) TELE CONSULT [id number] 3 MARCIA MEDEL NOONE 01/15 [facility] [place] [address](A FNG 104 Med Sq-FM) [place] [address](AFN G 104 Med Sq-FM) TELE CONSULT [id number] MARCIA MEDEL NOONE 03/13 [facility] [place] [address](A FNG 104 Med Sq-FM) [place] [address](AFN G 104 Med Sq-FM) OUTPATIENT [id number] 5 Notes Entered by: MARCIA MEDEL NOCONNIE 17 Mar 2022 1610 ------- ------- ------- ------- -- JORGE LUIS MARCIA MEDEL NOCONNIE 03/17 Released with Work/Duty Limitations [facility] [place] [address](A FNG 104 Med Sq-FM) [place] [address](AFN G 104 Med Sq-FM) OUTPATIENT [id number] Notes Entered by: MALVIN HARTLEY 16 Apr 2022 1641 ------- ------- ------- ------- -- KEKE Armstrong 04/16 Released w/o Limitations [facility] [place] [address](A FNG 104 Med Sq-FM) [facility] Encounter [id number] 04/08 [facility]counter [id number] 05/18 [facility] Encounter [id number]/04 [facility] Outpatient Encounter [id number] 03/02 [facility] OFFICE O/P NEW MOD 45 MIN [id number] 1. Diagnos is: ICD-10- CM I10 Essenti al (primar y) hyperte GERARD Fortune 03/02 [facility] Outpatient Encounter [id number] 03/02 [facility] CASE MANAGEMENT [id number] Diagnos is: ICD-10- CM Z71.89 Other specifi ed senior counsel JOY Contreras 03/03 [facility] Out[facility] Encounter [id number] 03/07 [facility] Out[facility] Encounter [id number] 03/08 [facility] Out[facility] Encounter [id number] 03/10 [facility] Out[facility]counter [id number] 03/10 [facility] Out[facility] Encounter [id number] 03/13 [facility] CASE MANAGEMENT [id number] Diagnos is: ICD-10- CM Z71.89 Other specifi ed senior counsel JOY Contreras 03/20 [facility] Out[facility] Encounter [id number] 03/27 [facility] CASE MANAGEMENT [id number] Diagnos is: ICD-10- CM Z71.89 Other specifi ed senior counsel JOY Contreras 03/27 [facility] Out[facility] Encounter [id number] 03/27 [facility] Out[facility] Encounter [id number] 03/29 [facility] Outpatient Encounter [id number] 04/11 [facility] OFFICE O/P NEW HI 60 MIN [id number] Diagnos is: ICD-10- CM M77.11 Lateral epicond ylitis, right elbow Niharika FLAHERTY 05/22 [facility] Out[facility]counter [id number] 06/05 [facility] Out[facility] Encounter [id number] 06/20 [facility] Outpatient Encounter [id number] 06/23 [facility] Procedures Combined list of: 1) Procedures from Department of Veterans Affairs facilities going back up to thelast 18 months, not all MD non-surgical procedures are included; 2) All procedures from the Department of Defense facilities. Procedure Procedure Type Code Date Perfomer Comments Sourc e No data available for this section Ambulato ry Pharmacy Spirometry Spirometry 20525 2013 SARAH JONES [facility] Audiogram (Screening) Audiogram (Screening) 74359 2013 SARAH JONES [facility] Psychometric Neuropsych Testing Battery Admin By Computer Psychometric Neuropsych Testing Battery Admin By Computer 09032 2012 ABHISHEK MAS [facility] Threshold Audiogram (Pure Tone) Threshold Audiogram (Pure Tone) 25197 2012 BEVERLY BATES [facility] Pulmonary Function Tests Pulmonary Function Tests 98293 2012 BEVERLY BATES IV Infusion For Hydration Each Additional Hour IV Infusion For Hydration Each Additional Hour 95199 2012 DEJA LEOS IV Infusion For Hydration 31 Minutes To 1 Hour IV Infusion For Hydration 31 Minutes To 1 Hour 12835 2012 DEJA LEOS Intravenous Catheter Placement Intravenous Catheter Placement 20749 2012 DEJA LEOS Physical Medicine Physical Therapy Re-Evaluation Physical Medicine Physical Therapy Re-Evaluation 14668 2011 WIDING, SUMIT E DoD Modalities Heat Hot Packs Modalities Heat Hot Packs 50401 2011 MARCIALLUIS MARCUS Physical Therapy Neuromuscular Re-education Physical Therapy Neuromuscular Re-education 79483 2011 MARCIAL, LUIS DoD Physical Therapy: ___ Se ion Segments, 15 Minutes Each Physical Therapy: ___ Session Segments, 15 Minutes Each 46888 2011 MARCIAL, LUIS DoD Modalities Heat Hot Packs Modalities Heat Hot Packs 52792 2011 BRISA GONZALEZ [facility] Physical Therapy Neuromuscular Re-education Physical Therapy Neuromuscular Re-education 87800 2011 GONZALEZ BRISA S [facility] Physical Therapy: ___ Se ion Segments, 15 Minutes Each Physical Therapy: ___ Session Segments, 15 Minutes Each 90456 2011 GONZALEZ, BRISA S [facility] Modalities Heat Hot Packs Modalities Heat Hot Packs 11606 2011 NATALIIA GUERIN [facility] Physical Therapy Neuromuscular Re-education Physical Therapy Neuromuscular Re-education 04899 2011 NATALIIA GUERIN Physical Therapy: ___ Se ion Segments, 15 Minutes Each Physical Therapy: ___ Session Segments, 15 Minutes Each 42651 2011 NATALIIA GUERIN Modalities Heat Hot Packs Modalities Heat Hot Packs 69182 2011 MARCIAL, PEDRO [facility] Physical Therapy: ___ Se ion Segments, 15 Minutes Each Physical Therapy: ___ Session Segments, 15 Minutes Each 20785 2011 MARCIAL, LUIS [facility] Physical Therapy Neuromuscular Re-education Physical Therapy Neuromuscular Re-education 17617 2011 MARCIAL, LUIS [facility] Modalities Heat Hot Packs Modalities Heat Hot Packs 47018 2010 MARCIAL, LUIS [facility] Physical Therapy Neuromuscular Re-education Physical Therapy Neuromuscular Re-education 90686 2010 MARCIAL, LUIS [facility] Physical Therapy: ___ Se ion Segments, 15 Minutes Each Physical Therapy: ___ Session Segments, 15 Minutes Each 46721 2010 MARCIAL, LUIS [facility] Physical Medicine Physical Therapy Re-Evaluation Physical Medicine Physical Therapy Re-Evaluation 59879 2010 SUMIT ROSEN E [facility] Physical Therapy Neuromuscular Re-education Physical Therapy Neuromuscular Re-education 28985 2010 MARCIAL, LUIS DoD Modalities Heat Hot Packs Modalities Heat Hot Packs 79353 2010 MARCIAL, LUIS DoD Physical Therapy: ___ Se ion Segments, 15 Minutes Each Physical Therapy: ___ Session Segments, 15 Minutes Each 34222 2010 MARCIAL, LUIS DoD Modalities Heat Hot Packs Modalities Heat Hot Packs 87420 2010 MARCIAL, LUIS DoD Physical Therapy: ___ Se ion Segments, 15 Minutes Each Physical Therapy: ___ Session Segments, 15 Minutes Each 10041 2010 MARCIAL, LUIS DoD Physical Therapy Neuromuscular Re-education Physical Therapy Neuromuscular Re-education 25812 2010 MARCILA, LUIS DoD Physical Therapy Neuromuscular Re-education Physical Therapy Neuromuscular Re-education 13558 2010 MARCIAL, LUIS DoD Modalities Heat Hot Packs Modalities Heat Hot Packs 82719 2010 MARCIAL, LUIS DoD Physical Therapy: ___ Se ion Segments, 15 Minutes Each Physical Therapy: ___ Session Segments, 15 Minutes Each 25676 2010 MARCIAL, LUIS DoD Modalities Heat Hot Packs Modalities Heat Hot Packs 51600 2010 BRISA GONZALEZ [facility] Physical Therapy Neuromuscular Re-education Physical Therapy Neuromuscular Re-education 72877 2010 BRISA GONZALEZ [facility] Physical Therapy: ___ Se ion Segments, 15 Minutes Each Physical Therapy: ___ Session Segments, 15 Minutes Each 85445 2010 BRISA GONZALEZ Pulmonary Function Tests Pulmonary Function Tests 53130 2010 LEIGH TAYLOR [facility] Physical Medicine Physical Therapy Re-Evaluation Physical Medicine Physical Therapy Re-Evaluation 40147 2010 SUMIT ROSEN Modalities Heat Hot Packs Modalities Heat Hot Packs 15010 2010 BRISA GONZALEZ [facility] Modalities Ultrasound Modalities Ultrasound 88519 2010 BRISA GONZALEZ Exercises A isted Exercises For ROM Exercises Assisted Exercises For ROM 09382 2010 BRISA GONZALEZ DoD Modalities Heat Hot Packs Modalities Heat Hot Packs 66188 2010 MARCIAL, LUIS DoD Modalities Ultrasound Modalities Ultrasound 95504 2010 MARCIAL, LUIS DoD Exercises A isted Exercises For ROM Exercises Assisted Exercises For ROM 45353 2010 MARCIALBALDO MARCUSRO DoD Modalities Ultrasound Modalities Ultrasound 09535 2010 NATALIIA GUERIN A [place] Modalities Heat Hot Packs Modalities Heat Hot Packs 68496 2010 NATALIIA GUERIN Exercises A isted Exercises For ROM Exercises Assisted Exercises For ROM 28174 2010 NATALIIA GUERIN A DoD Modalities Heat Hot Packs Modalities Heat Hot Packs 92084 2010 MARCIAL, LUIS DoD Modalities Ultrasound Modalities Ultrasound 95439 2010 MARCIAL, LUIS DoD Exercises A isted Exercises For ROM Exercises Assisted Exercises For ROM 10276 2010 MARCIAL, LUIS DoD Physical Medicine Physical Therapy Evaluation Physical Medicine Physical Therapy Evaluation 65702 2010 SUMIT ROSEN [place] Pulmonary Function Tests Pulmonary Function Tests 56242 2009 STERLING GEE Threshold Audiogram (Pure Tone) Threshold Audiogram (Pure Tone) [id number] 2009 STERLING GEE DoD Audiogram (Screening) Audiogram (Screening) 95002 2009 RAMILA DAMIAN Non-Physician Phone Call To Patient/Provider Brief (5-10min) Non-Physician Phone Call To Patient/Provider Brief (5-10min) [id number] 2009 JONEL BUSBY Culture, bacterial, urine; quantitative, sensitivity study 2008 BRISA AHUJA strep swab done [facility] Threshold Audiogram (Pure Tone) Threshold Audiogram (Pure Tone) [id number] 2008 JUANJO CLEARY Threshold Audiogram (Pure Tone) Threshold Audiogram (Pure Tone) [id number] 2007 MARYANNE SANTOS Services Provided On An Emergency Basis In The Office 2006 JAIME LAIRD Services Provided On An Emergency Basis In The Office 2006 LATIA CARVAJAL Ophthalmological New Patient Start Intermediate Level Care Ophthalmological New Patient Start Intermediate Level Care [id number] 2006 LATIA CARVAJAL Threshold Audiogram (Pure Tone) Threshold Audiogram (Pure Tone) 96526 2006 MARYANNE SANTOS Threshold Audiogram (Pure Tone) Threshold Audiogram (Pure Tone) 97282 KEKE SNYDER [facility] Social History Combined list of available smoking, tobacco, and other social history from 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 Social History Type Response Date Comment Sourc e Tobacco smoking status NHIS MD-TOBACCO USE FORMER CIGARETTES 03/02/2024 [facility] History of tobacco use MD-TOBACCO NEVER USED OTHER TYPE 03/02/2024 [facility] This section is an empty social history section. [facility] Assessment and Plan Combined list of future care activities from [facility] facilities (e.g., assessment and plan notes, appointments, orders, and referrals). Additional future care activities may be listed in the Plan of Care section. Result Assessment and Plan Date Source Assessment and Plan No data available for this section 06/26/2024 [facility] Plan of Care List of future care activities from [facility] facilities. Additional future care activities may be listed in the Assessment and Plan section. Date/Time Care Activity Care Activity Detail Facili ty 06/26/2024 AMBULATORY - MEDICINE AMBULATORY - MEDICI NE [facility] Functional Status Combined list of recent functional and cognitive assessments recorded at [facility] Functional [place]fee Measurement (FIM) Scale: 1 = Total Assistance (Subject = 0% +), 2 = Maximal Assistance (Subject = 25% +), 3 = Moderate Assistance (Subject = 50% +), 4 = Minimal Assistance (Subject = 75% +), 5 = Supervision, 6 = Modified Chaffee (Device), 7 = Complete Chaffee (Timely, Safely). Assessment Date/Time Source Assessment Type Assessment Skill Assessment Score Assessment Details No data available for this section
--- OUTSIDE RECORDS SUMMARY | 2024-06-26 13:27 | XMS_ITS | Encounter Summary ---
Author Name [facility] Organization [facility] Address [address] [place] [id number] Care Team Providers Care Key Operator Name Role Phone ELENA RODRIGUEZ Primary [...] PRESCRIPT ION RX Feb 15, 2022 THPRX [id number] USMANGUY NICHOLS PATIENT [facility] HARVEY Gutierrez June 22, 2023 [id number] USMANGUY KATERYNA PATIENT Selected Encounter This section includes the information on record at [facility] for the Encounter. Date/Time Encounter Type Encounter Description Reason Provider Source Mar 27, 2024 01:54 PM CASE MANAGEMENT ADMIN PAT ACTIVTIES (MASNONCT) ICD-10-CM Z71.89 Other specified counseling JOY ISLAS [facility] Encounter Template Text not used by [facility] Assessments - Encounter Diagnoses This section includes the primary and secondary diagnoses documented for the Encounter. Date/Time Primary/Secondary Diagnosis Diagnosis Name Provider Source Mar 27, 2024 01:54 PM PRIMARY Other specified counseling JOY ISLAS [facility] Plan of Treatment: Future Appointments (+ [...] 22, 2024 02:00 PM AMBULATORY - MEDICINE [facility] June 26, 2024 01:15 PM AMBULATORY - MEDICINE [facility] Social History: Smoking Status (Most current) and Tobacco Use (All prior to encounter date) This section includes the most current, and the historical, smoking and tobacco- related health factors from the [facility] facility where the Encounter took place. Current Smoking Status This section includes the most current smoking, or tobacco-related health factor, from the [facility] facility where the Encounter took place. Date/Time Current Smoking Status Comment Facil ity Mar 02, 2024 03:30 PM VA-TOBACCO USE FOR SUNG CIGARETTES [facility] Tobacco Use History This section includes a history of the smoking, or tobacco-related health factors, that were collected on or before the date of the Encounter. The data comes from the [facility] facility where the Encounter took place. Date/Time Smoking Status/Tobacco Use Comment F acility Mar 02, 2024 03:30 PM VA-TOBACCO USE FOR SUNG CIGARETTES [facility] Encounter Notes: All associated encounter notes [...] claim(s) application and/or status of current claim(s) Hes[place]ia came in today for a scheduled visit to discuss the his service connection disability claim. 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
== END 2024-06-26 13:51 | disposition home or self-care (01) ==
LOC: HO.HOS 13:08
PROVIDERS: PCP Nurse Practitioner Family; Referring Provider Orthopaedic Surgery; Visit Provider Orthopaedic Surgery
DX: S43.432A Superior glenoid labrum lesion of left shoulder, initial encounter (principal)
CPT/HCPCS: 99214

== ENCOUNTER → 2024-06-26 13:07 | Outpatient (BNVA) | payer OTHER, SELFPAY | PROVIDERS: PCP Nurse Practitioner Family; Visit Provider Orthopaedic Surgery | DX: S43.432A Superior glenoid labrum lesion of left shoulder, initial encounter (principal); X58.XXXA Exposure to other specified factors, initial encounter; Y93.9 Activity, unspecified; Y92.9 Unspecified place or not applicable; Y99.9 Unspecified external cause status | CPT/HCPCS: 99212 ==

== ENCOUNTER 2024-07-12 08:50 | Outpatient (AMB) | payer OTHER, SELFPAY ==
--- OUTSIDE RECORDS SUMMARY | 2024-07-12 09:11 | XMS_ITS ---
Author Name [facility] [place] Organization [facility] of [facility] ([place]) Address [address] [place] [address] Care Team Providers Care Gear Room Keeper Name Role Phone ELENA RODRIGUEZ Primary Care [...] PRESCRIPT ION RX Feb 15, 2022 THPRX [id number] GUY MARY PATIENT [facility] HARVEY Gutierrez June 22, 2023 [id number] USMANGUY AVENDAÑO PATIENT Selected Encounter This section includes the information on record at [place] for the Encounter. Date/Time Encounter Type Encounter Description Reason Provider Source May 22, 2024 02:00 PM OFFICE O/P [place] 60 MIN PM&RS PHYSICIAN ICD-10-CM M77.11 Lateral epicondylitis, right elbow LY FLAHERTY E Encounter Template Text not used by [place] Assessments - Encounter Diagnoses This section includes the primary and secondary diagnoses documented for the Encounter. Date/Time Primary/Secondary Diagnosis Diagnosis Name Provider Source May 27, 2024 05:47 AM PRIMARY Lateral epicondylitis, right elbow LY FLAEHRTY [place] [facility] [place] [facility] May 27, 2024 05:47 AM SECONDARY Mononeuropathy, unspecified LY FLAHERTY [place] [facility] [place] [facility] May 27, 2024 05:47 AM SECONDARY Myalgia, unspecified site LY FLAHERTY Hitesh Proctor [facility] May 27, 2024 05:47 AM SECONDARY Pain in right elbow LY FLAHERTY [facility] Plan of Treatment: Future Appointments (+ 6 months) and Future Tests (+/- 45 days) The Plan of Treatment section includes future care activities for the patient from all [place] [facility]. This section includes future appointments and future orders which are active, pending or scheduled. Future Appointments This section includes appointments that were scheduled to occur 6 months from the date of the Encounter, up to a maximum of 20 appointments. The data comes from all [place] treatment facilities. Appointment Date/Time Appointment Type Appointme nt Facility Name June 26, 2024 01:15 PM AMBULATORY - MEDICINE [facility] Active, Pending, and Scheduled Orders This section includes a listing of several types of active, pending, and scheduled orders, including clinic medications orders, diagnostic test orders, procedure orders and consult orders; where the start date of the order is 45 days before the date of the Encounter or 45 days after the date of theEncounter. The data comes from all [facility]. Test Date/Time Test Type Test Details Facility Name June 21, 2024 10:27 AM Consult Order [facility] Cons Primary Grade Teacher's Choice [facility] Vital Signs: All taken on the encounter date This section contains inpatient and outpatient Vital Signs collected on the date of the Encounter. Date/Time Temperature Pulse Blood Pressure Respiratory Rate SP02 Pain Height Weight Body Mass Index Source May 22, 2024 01:51 PM 160/100 5 [facility] Social History: Smoking Status (Most current) and Tobacco Use (All prior to encounter date) This section includes the most current, and the historical, smoking and tobacco- related health factors from the [place] facility where the Encounter took place. Current Smoking Status This section includes the most current smoking, or tobacco-related health factor, from the [place] facility where the Encounter took place. Date/Time Current Smoking Status Comment Lukasz parikh Mar 02, 2024 03:30 PM VA-TOBACCO USE FOR SUNG CIGARETTES [facility] Tobacco Use History This section includes a history of the smoking, or tobacco-related health factors, that were collected on or before the date of the Encounter. The data comes from the [place] facility where the Encounter took place. Date/Time Smoking Status/Tobacco Use Comment F tess Mar 02, 2024 03:30 PM [place]-TOBACCO USE FOR SUNG CIGARETTES [place] [facility] [facility] Encounter Notes: All [...] TO Feb from [facility], who was seen today for consultation requested by _ today for chief complaint of right elbow pain. Onset/Course: No acute trauma. 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 Symptoms started a [...] is the right elbow pain. Sa withw [facility]. Xrays not available. Report states new [...] previous corticosteroid injections to the right shoulder. [place] states that he has been noticing Systemic/Other symptoms: Denies fever, chills, night sweats, weight loss, saddle paresthesia, or bowel/bladder incontinence. Daily activities/exercise: Pertinent prior procedures and/or imaging: PMHx as obtained from Chart: Active problems - Computerized Problem List is the source for the followin. Polyp Colon ([facility] [id number]) 2. Renal stone 3. Chronic kidney disease stage 3A 4. Joint pain 5. Contact dermatitis 6. Dermatophytosis 7. Gout 8. Insomnia 9. Mononeuritis 10. Myalgia 11. History of nicotine dependence 12. Hammer toe 13. Chronic back pain 14. Plantar fasciitis 15. HTN - Hypertension ([facility] [id number]) 16. Degenerative Joint Disease of Shoulder Region ([facility] [id number]) 17. Pain in Lumbar Spine ([facility] [id number]) 18. Erectile Dysfunction ([facility] [id number]) 19. Anxiety ([facility] [id number]) 20. GERD - Gastro-Esophageal Reflux Disease ([facility] [id number]) PSxHx: Fam Hx: Soc Hx: MARITAL STATUS [...] bilaterally. There was normal capillary refill. 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 [place] would like to avoid any type of injection. he attributes rotator cuff tear to previous corticosteroid injection. FOLLOW-UP: 6 to 8 weeks to determine efficacy. If he wishes to avoid corticosteroid injection we could additionally consider referral to Eric Gray and jacqueline to have PRP provided. Potential [...] Remote Allergy/ADR Data available for this patient [place] [facility] No Known Allergies [...] the patient into personal health records (i.e. [employer] [facility]) are NOT included in this list. Non-VA medications documented outside this [place], remote inpatient orders (regardless of status) and [...] of active outpatient prescriptions dispensed from this [place] (local) and dispensed from another [place] or [facility] facility (remote) as well as inpatient orders [...] Remote Allergy/ADR Data available for this patient [place] [facility] No Known Allergies [...] the patient into personal health records (i.e. [facility]) are NOT included in this list. Non-VA medications documented outside this [place], remote inpatient orders (regardless of status) and [...] 1ML (200MG) INTRAMUSCULARLY SUPPLIES /abisai/ JOHANNY FLAHERTY [facility] Signed: 05/25/2024 12:58 [facility]OHANNY FLAHERTY [facility]
--- NOTE | 2024-07-12 09:15 | AM.OFFWIN_ITS ---
Intake Vital Signs 07/12/24 09:22 Height 5 ft 10 in Weight 243 lb BMI 34.9 BP 140/102 H Blood Pressure Location Lt brachial Position Sitting Respiration 16 Pulse 94 Pulse Source Pulse Oximeter Temp 98.3 F Temp Source Oral Pulse Oximetry (%) 98 Oxygen Delivery Method Room Air Intake Visit Reasons: EP pain in rt side, urinating blood Intake Note: EP c/o pain in Rt side, urinating blood Patient Tobacco Use Status: Former Tobacco user [employer] Exchange Administrator Required: No Allergies No Known Allergies [No Known Allergies*] Allergy (Verified 07/12/24 09:20) Do you need a note to return to daycare/school/sports/work: No HPI HPI Comments History of Present Illness Details History of Present Illness - The patient is a 43-year-old male pres enting with blood in her urine and right sided flank pain. - Right-sided flank pain began after a s evere coughing episode and has persisted intermittently for weeks. - Observes small, hard flakes in urine, not felt upon urination, alongside pinkish hue transitioning to clear. - History of kidney stones with previous surgeries; experienced a rare painful blood clot passing. - Denies fever and reports no new back p ain beyond chronic disc issues. - Increased urination today, typically f requent due to high water intake and supplement use. - Past kidney stone treatment complicati ons include infection post-stent placement and hospitalization. - No urinary blockage experienced. Physical Exam General: Cooperative, healthy appearing, comfortable, no acute distress and well developed Orientation: Patient oriented x3 Limitations: No limitations Head: Normal to inspection Ears: Hearing grossly normal bilaterally Nose: Normal External nose present Face and sinus: Normal facial exam Eyes: Appearance normal, both eyes and all related structures Neck: Normal visual inspection and Yes full ROM Respiratory: Normal respiratory effort and able to speak in complete sentences. Skin: No rashes or lesions noted Back: negative CVA bilaterally Neuro: Patient oriented x3 Extremities: Normal to inspection [facility] Medical History (Updated 07/12/24 @ 09:51 by Yu Cuevas PA-C) Tubular adenoma of colon GERD (gastroesophageal reflux disease) Anxiety with depression PTSD (post-traumatic stress disorder) Lumbar stenosis HTN (hypertension) Sleep apnea Hypogonadism in male BPH (benign prostatic hyperplasia) Renal calculi CKD (chronic kidney disease) Right foot pain Surgical History (Updated 05/15/24 @ 10:57 by Jose Briceño MD) Incarcerated umbilical hernia (04/14/24) Status post right rotator cuff repair Status post right foot surgery Family History Father No problems noted. Mother No problems noted. 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 Chua, a urologist, to schedule an evaluation for suspected small kidney stones causing hematuria and mild flank pain. Imaging studies, such as an ultrasound, are recommended to assess stone size and prevent complications. The patient is to monitor for signs requiring Emergency Dept care, including fever, severe pain, or urinary retention, which would necessitate an emergency department visit. No immediate emergency intervention is required, but timely follow-up with the urologist is crucial to manage symptoms and prevent kidney damage. The patient understands the importance of this follow-up and the need for vigilance in monitoring symptoms. Patient was informed and verbally consented to the use of an ambient scribe for clinic note documentation during this visit. Coding Level of Care Code Est Pt Level 3 (20243) Diagnoses Renal calculi N20.0
[2024-07-12 09:22] VITALS: BP 140/102; PULSE 94; RESP 16; TEMP 36.8; O2SAT 98; BMI 34.9
== END 2024-07-12 10:22 | disposition home or self-care (01) ==
PROVIDERS: PCP Nurse Practitioner Family; Visit Provider Physician Assistant
DX: N20.0 Calculus of kidney (principal); Z13.9 Encounter for screening, unspecified

== ENCOUNTER → 2024-07-12 08:50 | Outpatient (BNVA) | payer OTHER, SELFPAY | PROVIDERS: PCP Nurse Practitioner Family; Visit Provider Physician Assistant | DX: N20.0 Calculus of kidney (principal) | CPT/HCPCS: 81003; 99212 ==

== ENCOUNTER 2024-08-01 14:34 | Outpatient (AMB) | payer OTHER, SELFPAY ==
--- NOTE | 2024-08-01 14:47 | MHC.OFFVIS ---
Vital Signs 08/01/24 14:50 Height 5 ft 10 in Weight 243 lb BMI 34.9 Intake Visit Reasons: Pre-Lt Shld 08/09/24 NE Intake Note: Gerard is a 44 year old male who presents today for a pre op appointment for his left shoulder arthroscopy 08/09/24 NE. Patient was given a pain management form to review and sign. Allergies No Known Allergies (No Known Allergies*) Allergy (Verified 08/01/24 14:47) HPI HPI Pre-Lt Shld 08/09/24 NE: Details: Mr. Schultz is a 44 year old male who presents to the office today for his history and physical exam pending left shoulder arthroscopy with possible rotator cuff repair and possible biceps tenotomy with Dr. Monson tentatively scheduled for 08/09/24. [facility] Medical History (Updated 07/12/24 @ 09:51 by Yu Cuevas PA-C) Tubular adenoma of colon GERD (gastroesophageal reflux disease) Anxiety with depression PTSD (post-traumatic stress disorder) Lumbar stenosis HTN (hypertension) Sleep apnea Hypogonadism in male BPH (benign prostatic hyperplasia) Renal calculi CKD (chronic kidney disease) Right foot pain Surgical History Incarcerated umbilical hernia (04/14/24) Status post right rotator cuff repair Status post right foot surgery Family History Father No problems noted. Mother No problems noted. 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 Forward flexion to 140. Internal rotation to L5. Positive Ballard's. Negative Alexandre and Neer. Positive crank. Assessment & Plan Assessment & Plan (1) Painful arc syndrome of left shoulder: Code(s): M75.102 - Unspecified rotator cuff tear or rupture of left shoulder, not specified as traumatic Category: Medical Plan I discussed in detail the procedure and what to expect pre and post operatively. We discussed the risks, benefits and alternatives to the surgery as well as the rehabilitation course. The risks; which include, but are not limited to infection, bleeding, nerve injury, ongoing pain, swelling, and stiffness, perioperative risk of injury to bones and soft tissues, and blood clots. Post operative medications were sent to the pharmacy, Oxycodone and MS Contin, while in the office today. The patient was instructed that he/she should obtain the prescription prior to surgery but should not consume until after the procedure; as these should only be taken for postoperative pain management. Should the patient take these medications before surgery, a refill will not be sent to the pharmacy until their scheduled refill date. oxycodone-acetaminophen 5-325 mg (Percocet) PO Q4-6H PRN, quantity 42 tabs for 7 days and morphine ER 15 mg (MS Contin) PO Q12H PRN, quantity 6 tabs for 3 days I?ve answered all questions and with their understanding they have consented to move forward with left shoulder arthroscopy with possible rotator cuff repair and possible biceps tenotomy with Dr. Monson. Medications: New morphine ER (MS Contin) Partial Fill upon patient request. 15 mg PO Q12H 6 tabs 0RF 3 days oxycodone-acetaminophen 5-325 mg Partial Fill upon patient request. 1 tab PO Q4-6H PRN 42 tabs 0RF pain 7 days Coding Level of Care Code Global (83618) Diagnoses Painful arc syndrome of left shoulder M75.102
[2024-08-01 14:50] VITALS: BMI 34.9
--- OUTSIDE RECORDS SUMMARY | 2024-08-01 16:53 | XMS_ITS | Patient Health Record ---
[facility] Address [address] [place] [address] Care Team Providers Care Right Of Way Worker Name Role Phone Mildred Singh MD Primary Care Provider Bowen Arellano Unavailable [phone] Reason For Referral No Information Medications Medication SIG (Take, Route, Frequency, Duration) Notes Start Date End Date Status Walking Boot/Pneumatic As directed Wear Daily for Until further notice Active Night Splint AFO - L1930 as directed 01/19/2018 Active Work Note . . . patient is total ly disabled from work until 07/04/18 with limited standing/walking; NO PT TEST; Can not wear boots Active Work Note-Appointment . . . Pt had a [facility] appointment today for . Active Work Note . . . patient is disab led from work until further notice Not-Taking Physical Therapy . . . 2-3x/week for 3- 4 weeks 01/19/2018 Not-Taking Physical Therapy . . . 2-3x/week for 3- 4 weeks 05/31/2018 Active Social History Tobacco Use: Social History Observation Description Date Details (start date - stop date) Former Smoker NA - NA Tobacco Use/Smoking Question Answer Notes Are you a: former smoker When did you start smoking? 16 When did you stop smoking? Quit 30 Additional Findings: Tobacco Non-User Cu rrent non-smoker, but past smoking history unknown Alcohol Screen Question Answer Notes Did you have a drink containing alcohol in the p ast year? Yes Points 0 Interpretation Negative Tobacco use other than smoking: Question Answer Notes Are you an other tobacco user? No Plan Of Treatment Pending Test Test Name Order Date X ray : Foot, right 3V 10/14/2016 10038-Ovtm Destruction, 1-14 10/14/2016 03154-Hadt Destruction, 02-2812/21/2016 [id number]-Mweo Destruction, 02-2801/18/2017 [id number] TENDON SHEATH/LIGAMENT 1 03/05/2017 Insurance Providers Payer Name Payer Address Payer Phone Subscriber Number Group Number Insured Name Patient Relationship to Insured Coverage Start Date Coverage End Date [facility] [address] [place] [address] [id number] Gerard Schultz Self - patient is the insured Medical (General) History Medical History History ICD Code Measles Chicken pox Surgical History Surgery Date(Month/Year) Kidney stones removed - Rohan Faye Ligaments and tendons striped away from right hand pinky finger 10/2016 Hospitalization History Reason Date(Month/Year) [facility] , Right pinky finger 10/2016
== END 2024-08-01 15:26 | disposition home or self-care (01) ==
LOC: HO.HOS 14:35
PROVIDERS: PCP Nurse Practitioner Family; Visit Provider Physician Assistant
DX: M75.102 Unspecified rotator cuff tear or rupture of left shoulder, not specified as traumatic (principal)
CPT/HCPCS: 99024

== ENCOUNTER → 2024-08-01 14:34 | Outpatient (BNVA) | payer OTHER, SELFPAY | PROVIDERS: PCP Nurse Practitioner Family; Visit Provider Physician Assistant | DX: Z01.818 Encounter for other preprocedural examination (principal); M75.102 Unspecified rotator cuff tear or rupture of left shoulder, not specified as traumatic | CPT/HCPCS: 99212 ==

== ENCOUNTER 2024-08-09 06:19 | Day surgery (SDC) | payer OTHER, SELFPAY ==
--- OUTSIDE RECORDS SUMMARY | 2024-06-27 13:11 | XMS_ITS | Clinical Summary ---
Author Organization [facility] Address [address] [place] [address] Care Team Providers Care Assembler Arranger Name Role Phone Elmo Moreno Primary Care Provider [phone] Allergies No known active allergies Medications Medication [...] Advance Directives For more information, please contact: [phone] Latest Code Status on File Code Status Date Activated Date Inactivated Comments Full Code 03/18/2020 12:11 PM 03/18/2020 9:28 PM This c ode status was ascertained in the following way: discussion with patient . Care Teams Assembler Arranger Relationship Specialty Start Date End Date Elmo Moreno: [phone] [address] [facility] [place] [address] PCP - General Family Medicine 03/07/20
--- OUTSIDE RECORDS SUMMARY | 2024-06-27 13:11 | XMS_ITS | Continuity of Care Document ---
Author Name [facility] Organization [facility] Care Team Providers Care Marine Farmer Name Role Phone [facility] Unavailable Unavailable Problems Combined list of problems from 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 It does not include entries that were removed or entered in error. Problem Status Onset Date Problem Type Date of Resolution Comments Source Other hammer toe(s) (acquired), right foot Active 1898 Condition DoD Anxiety (SCT [id number]) Active Condition [facility] Chronic back pain Active [facility] Chronic kidney disease stage 3A Active Condition Mar 03 Entered By: EDITH ALEJANDRO Comment: Stage 3a chronic kidney disease 03/02/2021 [facility] Contact dermatitis Active Condition [facility] Degenerative Joint Disease of Shoulder Region (SCT [id number]) Active Condition [facility] Dermatophytosis Active Condition Mar 03, 2024 Entered By: EDITH ALEJANDRO Comment: Dermatophytosis tinea cruris [facility] Erectile Dysfunction (SCT [id number]) Active Condition [facility] GERD - Gastro-Esophageal Reflux Disease (SCT [id number]) Active Condition [facility] Gout Active Condition [facility] Hammer toe Active Condition Mar 03 Entered By: EDITH ALEJANDRO Comment: hammer toe(s) (acquired), right foot [facility] History of nicotine dependence Active Condition [facility] HTN - Hypertension (SCT [id number]) Active Condition [facility] Pain in Lumbar Spine (SCT [id number]) Active Condition [facility] Plantar fasciitis Active Condition 2024 Entered By: EDITH ALEJANDRO Comment: Plantar fasciitis left [facility] Polyp Colon (SCT [id number]) Active Condition [facility] [...] M77.11 Lateral epicondylitis, right elbow Active Diagnosis [facility] Diagnosis: ICD-10-CM Z71.89 Other specified counseling Active Diagnosis [facility] Diagnosis: ICD-10-CM I10 Essential (primary) hypertension Active Diagnosis [facility] Medications Combined list of outpatient medications [...] ORAL, IVAX PHARMACEUT, 100 ea. BOTTLE Active [id number] 2023 90 Pharmac y Data Transac [...] ORAL, AUROBINDO PHARM, 500 ea. BOTTLE Active [id number] 2023 30 Pharmac y Data Transac tion Service Facilit y LORAZEPAM (lorazepam) , 0.5 MG, TABLET, ORAL, AUROBINDO PHARM, 500 ea. BOTTLE Active [id number] 2023 30 Pharmac y Data Transac tion Service Facilit y LORAZEPAM 0.5MG TAB TAKE ONE TABLET BY MOUTH ORAL ACTIVE GERARD RODRIGUEZ 2024 [facility] losartan-hy droCHLOROth [...] ORAL, GLENMARK PHARMA, 500 ea. BOTTLE Active [id number] 2023 60 Pharmac y Data Transac tion Service Facilit y NAPROXEN (NAPROXEN), 500MG, TABLET, ORAL, GLENMARK PHARMA, 500 ea. BOTTLE Active [id number] 4 2023 60 Pharmac y Data Transac tion Service Facilit y NAPROXEN 500MG TAB TAKE ONE TABLET BY MOUTH ORAL ACTIVE GERARD RODRIGUEZ 2024 [facility] OMEPRAZOLE (omeprazole ), 20 MG, CAPSULE DR, ORAL, RRT Global, 1000 ea. BOTTLE Active [id number] 2023 90 Pharmac y Data Transac [...] BREAKFAS T ORAL ACTIVE GERARD ROD[facility]IGUEZ 2024 [facility] oxyCODONE 5 mg oral [...] MEDICAL SURG, [address] [id number] : 2023 0 Pharmac y Data Transac [...] INTRAM USCULA R ACTIVE GERARD R[facility]IGUEZ 2024 [facility] tiZANidine 2 mg oral [...] Site Reaction Lot Number CVX Code Drug Account Developer Status Comments Source ANTHRAX VACCINE, UNSPECIFIED 6 2023 319 complet ed HISTORICA L INFORMATI ON - FROM OTHER REGISTRY, Lot#: [id number] [facility] Influenza, injectable, quadrivalent, preservative free 2021 [id number] SmithKline (SKB) complet ed Influenza , injectabl e, quadrival ent, preservat gauri free DoD tetanus, diphtheria, acellular pertu is 2021 [id number] sanofi pasteur complet ed tetanus, diphtheri a, acellular pertussis 04/24/21 Given Ambulat ory Pharmac y TDAP 2 2021 115 complet ed HISTORICA L INFORMATI ON - FROM OTHER REGISTRY, tetanus toxoid, reduced diphtheri a toxoid, and acellular pertussis vaccine, adsorbed Lot#: [id number] Mfr: SANOFI PASTEUR [facility] tetanus toxoid, reduced diphtheria toxoid, and acellular pertu is vaccine, adsorbed 2 2021 [id number] 115 Sanofi Pasteur (PMC) complet ed tetanus toxoid, reduced diphtheri a toxoid, and acellular pertussis vaccine, adsorbed DoD influenza virus vaccine, inactivated 2020 [id number] Seqirus complet ed influenza virus vaccine, inactivat ed 01/18/21 Given Ambulat ory Pharmac y Influenza, injectable, Madin Chester Canine Kidney, quadrivalent with preservative 9 2020 [id number] Seqirus (SEQ) comple t ed Influenza , injectabl e, Madin Chester Canine Kidney, quadrival ent with preservat gauri DoD COVID Vaccine Moderna 2020 [id number] complet ed COVID Vaccine Moderna 05/25/20 Given Ambulat ory Pharmac y COVID-19 (MODERNA), MRNA, LNP-S, PF, 100 MCG/0.5ML DOSE OR 50 MCG/0.25ML DOSE 2 2020 207 complet ed HISTORICA L INFORMATI ON - FROM OTHER REGISTRY, SARS-COV- 2 (COVID-19 ) vaccine, mRNA, spike protein, LNP, preservat gauri free, 100 mcg or 50 mcg dose Lot#: [id number] Mfr: MODERNA US, INC. [facility] SARS-COV-2 (COVID-19) vaccine, mRNA, spike protein, LNP, preservative free, 100 mcg or 50 mcg dose 2 2020 [id number] Moderna US, Inc. (MOD) complet ed SARS-COV- 2 (COVID-19 ) vaccine, mRNA, spike protein, LNP, preservat gauri free, 100 mcg or 50 mcg dose DoD COVID Vaccine Moderna 2020 [id number] complet ed COVID Vaccine Moderna 04/24/20 Given Ambulat ory Pharmac y COVID-19 (MODERNA), MRNA, LNP-S, PF, 100 MCG/0.5ML DOSE OR 50 MCG/0.25ML DOSE 1 2020 207 complet ed HISTORICA L INFORMATI ON - FROM OTHER REGISTRY, SARS-COV- 2 (COVID-19 ) vaccine, mRNA, spike protein, LNP, preservat gauri free, 100 mcg or 50 mcg dose Lot#: [id number] Mfr: Just FabA upad. [facility] SARS-COV-2 (COVID-19) vaccine, mRNA, spike protein, LNP, preservative free, 100 mcg or 50 mcg dose 1 2020 [id number] 207 [employer] Ltd, Inc. (MOD) complet ed SARS-COV- 2 (COVID-19 ) vaccine, mRNA, spike protein, LNP, preservat gauri free, 100 mcg or 50 mcg dose DoD influenza, injectable, quadrivalent- pf 2019 [id number] 150 Seqirus complet ed influenza , injectabl e, quadrival ent-pf 12/31/19 Given Ambulat ory Pharmac y Influenza, injectable, quadrivalent, preservative free 1 2019 [id number] 077 150 Seqirus (SEQ) complet ed Influenza , injectabl e, quadrival ent, preservat gauri free DoD influenza, injectable, quadrivalent- pf 2018 [id number] 520 150 Seqirus complet ed influenza , injectabl e, quadrival ent-pf 11/20/18 Given Ambulat ory Pharmac y Influenza, injectable, quadrivalent, preservative free 17 2018 [id number] 520 150 Seqirus (SEQ) complet ed Influenza [...] typhoid Vi capsular polysaccharid e vac 2017 [id number] sanofi pasteur complet ed typhoid Vi capsular polysacch aride vac 06/20/17 Given Ambulat ory Pharmac y TYPHOID, VICPS 2017 101 complet ed HISTORICA L INFORMATI ON - FROM OTHER REGISTRY, typhoid Vi capsular polysacch aride vaccine Lot#: [id number] Mfr: SANOFI PASTEUR [facility] typhoid Vi capsular polysaccharid e vaccine 5 2017 [id number] Sanofi Pasteur ([facility]) complet ed typhoid Vi capsular polysacch [...] virus vaccine DoD influenza, seasonal, injectable 2016 [id number] 141 complet ed influenza , seasonal, injectabl e 12/13/16 Given Ambulat ory Pharmac y Influenza, seasonal, injectable, preservative free 2016 NEW, () Not Given Influenza , seasonal, injectabl e, preservat gauri free DoD Influenza, seasonal, injectable 1 2016 [id number] 141 Transcribed (TRS) complet ed Influenza , [...] gauri DoD influenza, live, intranasal,qu adrivalent 2014 [id number] Neofectune Inc comple t ed influenza , live, intranasa l,quadriv alent 11/20/14 Given Ambulat ory Pharmac y influenza, live, intranasal, quadrivalent 13 2014 [id number] 149 Cognection, Inc. (MED) complet ed influenza , live, intranasa l, quadrival ent DoD influenza, live, intranasal,qu adrivalent 2013 [id number] 149 [email or web address] Inc comple t ed influenza , live, intranasa l,quadriv alent 12/14/13 Given Ambulat ory Pharmac y influenza, live, intranasal, quadrivalent 12 2013 [id number] 149 Cognection, Inc. (MED) complet ed influenza , live, intranasa l, quadrival ent DoD influenza, live, intranasal,qu adrivalent 2012 [id number] 149 Mediune Inc comple t ed influenza , live, intranasa l,quadriv alent 10/13/12 Given Ambulat ory Pharmac y influenza, live, intranasal, quadrivalent 0 2012 [id number] 149 Cognection, Inc. (MED) complet ed influenza , live, intranasa l, quadrival ent DoD typhoid Vi capsular polysaccharid e vac 2012 [id number] 101 sanofi pasteur complet ed typhoid Vi capsular polysacch aride vac 08/16/12 Given Ambulat ory Pharmac y anthrax vaccine 2012 [id number] Emergent Biosolutions complet ed anthrax vaccine 08/16/12 Given Ambulat ory Pharmac y ANTHRAX VACCINE, UNSPECIFIED 7 2012 319 complet ed HISTORICA L INFORMATI ON - FROM OTHER REGISTRY, Lot#: [id number] [facility] anthrax vaccine 7 2012 [id number] Emergent [employer] [place] ([facility]) complet ed anthrax vaccine DoD typhoid Vi capsular polysaccharid e vaccine 4 2012 [id number] 101 Sanofi Pasteur (PMC) complet ed typhoid Vi capsular polysacch aride vaccine DoD influenza virus vaccine, live 2011 [id number] MedivIPtela Inc comple t ed influenza virus vaccine, live 10/30/11 Given Ambulat ory Pharmac y influenza virus vaccine, live, attenuated, for intranasal use 0 2011 [id number] 111 Cognection, Inc. (MED) complet ed influenza virus vaccine, live, attenuate d, for intranasa l use DoD tetanus, diphtheria, acellular pertu is 2011 [id number] [facility] tetanus, diphtheri a, acellular pertussis 05/22/11 Given Ambulat ory Pharmac y TDAP 2011 115 complet ed HISTORICA L INFORMATI ON - FROM OTHER REGISTRY, tetanus toxoid, reduced diphtheri a toxoid, and acellular pertussis vaccine, adsorbed Lot#: [id number] [facility] tetanus toxoid, reduced diphtheria toxoid, and acellular pertu is vaccine, adsorbed 0 2011 [id number] 115 [facility] (SKB) complet ed tetanus toxoid, reduced diphtheri a toxoid, and acellular pertussis vaccine, adsorbed DoD anthrax vaccine 2011 [id number] Emergent Biosolutions complet ed anthrax vaccine 03/09/11 Given Ambulat ory Pharmac y typhoid Vi capsular polysaccharid e vac 2011 [id number] 101 sanofi pasteur complet ed typhoid Vi capsular polysacch aride vac 03/09/11 Given Ambulat ory Pharmac y ANTHRAX VACCINE, UNSPECIFIED 6 2011 319 complet ed HISTORICA L INFORMATI ON - FROM OTHER REGISTRY, Lot#: [id number] [facility] TYPHOID, VICPS 3 2011 101 complet ed HISTORICA L INFORMATI ON - FROM OTHER REGISTRY, typhoid Vi capsular polysacch aride vaccine Lot#: [id number] Mfr: SANOFI PASTEUR [facility] anthrax vaccine 6 2011 [id number] [employer] [place] ([facility]) complet ed anthrax vaccine DoD typhoid Vi capsular polysaccharid e vaccine 3 2011 [id number] 101 Sanofi Pasteur (PMC) complet ed typhoid Vi capsular polysacch aride vaccine DoD influenza virus vaccine, live 2010 [id number] 111 [employer]Mango.[employer] Inc comple t ed influenza virus vaccine, live 11/04/10 Given Ambulat ory Pharmac y influenza virus vaccine, live, attenuated, for intranasal use 9 2010 [id number] 111 Cognection, Inc. (MED) complet ed influenza virus vaccine, live, attenuate d, for intranasa l use [facility] influenza virus vaccine,split 2009 [id number] 15 sanofi pasteur complet ed influenza virus vaccine,s plit 11/04/09 Given Ambulat ory Pharmac y influenza virus vaccine, split virus (incl. purified surface antigen)-reti red CODE 8 2009 [id number] 15 Sanofi Pasteur (PMC) complet ed influenza virus vaccine, split virus (incl. purified surface antigen)- retired CODE DoD anthrax vaccine 2009 [id number] Emergent Biosolutions complet ed anthrax vaccine 09/04/09 Given Ambulat ory Pharmac y anthrax vaccine 5 2009 [id number] [employer] [place] (MIP) complet ed anthrax vaccine DoD Novel influenza-H1N 1-09,pf,injec table 2009 [id number] 1 126 Novartis Pharmaceutica ls complet ed Novel influenza -D4V6-82, pf,inject able 02/25/09 Given Ambulat ory Pharmac y Novel influenza-H1N 1-09, preservative- free, injectable 1 2009 [id number] 1 126 Novartis Pharmaceutica l Tyshawn. (NOV) complet ed Novel influenza -T9A2-35, preservat gauri-free, injectabl e DoD influenza virus vaccine, live 2008 [id number] 111 [employer]Mango.com Inc comple t ed influenza virus vaccine, live 10/26/08 Given Ambulat ory Pharmac y influenza virus vaccine, live, attenuated, for intranasal use 1 2008 [id number] 111 Cognection, niiu. (MED) complet ed influenza virus vaccine, live, attenuate d, for intranasa l use DoD anthrax vaccine 2008 [id number] Emergent Biosolutions complet ed anthrax vaccine 03/27/08 Given Ambulat ory Pharmac y ANTHRAX VACCINE, UNSPECIFIED 5 2008 319 complet ed HISTORICA L INFORMATI ON - FROM OTHER REGISTRY, Lot#: [id number] [facility] anthrax vaccine 5 2008 [id number] [employer] [place] ([facility]) complet ed anthrax vaccine DoD influenza virus vaccine,split 2007 [id number] 15 CSL Behring complet ed influenza virus vaccine,s plit 11/14/07 Given Ambulat ory Pharmac y influenza virus vaccine, split virus (incl. purified surface antigen)-reti red CODE 1 2007 [id number] 15 CSInge [employer] Biotherap[employer] Inc. (CSL) complet ed influenza virus vaccine, split virus (incl. purified surface antigen)- retired CODE DoD anthrax vaccine 2007 [id number] Emergent Biosolutions complet ed anthrax vaccine 09/12/07 Given Ambulat ory Pharmac y ANTHRAX VACCINE, UNSPECIFIED 4 2007 319 complet ed HISTORICA L INFORMATI ON - FROM OTHER REGISTRY, Lot#: [id number] [facility] anthrax vaccine 4 2007 [id number] 24 Emergent BioDef[employer] Operations Mark (MIP) complet ed anthrax vaccine DoD anthrax vaccine 2007 [id number] Emergent Biosolutions complet ed anthrax vaccine 03/30/07 Given Ambulat ory Pharmac y ANTHRAX VACCINE, UNSPECIFIED 3 2007 319 complet ed HISTORICA L INFORMATI ON - FROM OTHER REGISTRY, Lot#: [id number] [facility] anthrax vaccine 3 2007 [id number] [employer] Mark (MIP) complet ed anthrax vaccine DoD anthrax vaccine 2007 [id number] Emergent Biosolutions complet ed anthrax vaccine 03/10/07 Given Ambulat ory Pharmac y ANTHRAX VACCINE, UNSPECIFIED 2 2007 319 complet ed HISTORICA L INFORMATI ON - FROM OTHER REGISTRY, Lot#: [id number] [facility] anthrax vaccine 2 2007 [id number] [employer] [place] (MIP) complet ed anthrax vaccine DoD anthrax vaccine 2007 [id number] Emergent Biosolutions complet ed anthrax vaccine 02/21/07 Given Ambulat ory Pharmac y ANTHRAX VACCINE, UNSPECIFIED 1 2007 319 complet ed HISTORICA L INFORMATI ON - FROM OTHER REGISTRY, Lot#: [id number] [facility] anthrax vaccine 1 2007 [id number] [employer] Mark (MIP) complet ed anthrax vaccine DoD vaccinia (smallpox) vaccine 0 2007 75 () Not Given vaccinia (smallpox ) vaccine DoD influenza virus vaccine, live 2006 [id number] 111 [employer] comple t ed influenza virus vaccine, live 01/10/07 Given Ambulat ory Pharmac y influenza virus vaccine, live, attenuated, for intranasal use 1 2006 [id number] 111 MedImmune, Inc. (MED) complet ed influenza virus vaccine, live, attenuate d, for intranasa l use DoD typhoid vaccine, live, oral 2006 [id number] [employer] [place] complet ed typhoid vaccine, live, oral 03/05/06 Given Ambulat ory Pharmac y typhoid vaccine, live, oral 1 2006 [id number] 25 Oz[employer] ([facility]) complet ed typhoid vaccine, live, oral DoD influenza virus vaccine, live 2005 [id number] 111 [facility] [place] t ed influenza virus vaccine, live 12/04/05 Given Ambulat ory Pharmac y influenza virus vaccine, live, attenuated, for intranasal use 1 2005 [id number] 111 Securlinx Integration Softwareune, Inc. (MED) complet ed influenza virus vaccine, live, attenuate d, for intranasa l use DoD influenza virus vaccine, live 2004 [id number] 111 [facility] t ed influenza virus vaccine, live 12/25/04 Given Ambulat ory Pharmac y influenza virus vaccine, live, attenuated, for intranasal use 1 2004 [id number] 111 Cognection, Inc. (MED) complet ed influenza virus vaccine, live, attenuate d, for intranasa l use DoD influenza virus vaccine, live 2004 [id number] 111 [facility] t ed influenza virus vaccine, live 03/05/04 Given Ambulat ory Pharmac y typhoid Vi capsular polysaccharid e vac 2004 [id number] 101 sanofi pasteur complet ed typhoid Vi capsular polysacch aride vac 03/05/04 Given Ambulat ory Pharmac y typhoid Vi capsular polysaccharid e vaccine 0 2004 [id number] 101 Sanofi Pasteur ([facility]) complet ed typhoid Vi capsular polysacch aride vaccine DoD influenza virus vaccine, live, attenuated, for intranasal use 0 2004 [id number] 111 MedIBiocrates Life Sciencesune, Inc. (MED) complet ed influenza virus vaccine, live, attenuate d, for intranasa l use DoD hepatitis A-hepatitis B vaccine 2003 [id number] 104 [facility] complet ed hepatitis A-hepatit is B vaccine 12/07/03 Given Ambulat ory Pharmac y HEP A-HEP B 3 2003 104 complet ed HISTORICA L INFORMATI ON - FROM OTHER REGISTRY, hepatitis A and hepatitis B vaccine Lot#: [id number] [facility] hepatitis A and hepatitis B vaccine 3 2003 [id number] 104 SaadKline (SKB) complet ed hepatitis A and hepatitis B vaccine DoD hepatitis A-hepatitis B vaccine 2003 [id number] 104 GlaxoSmithKli ne complet ed hepatitis A-hepatit is B vaccine 07/07/03 Given Ambulat ory Pharmac y HEP A-HEP B 2 2003 104 complet ed HISTORICA L INFORMATI ON - FROM OTHER REGISTRY, hepatitis A and hepatitis B vaccine Lot#: [id number] [facility] hepatitis A and hepatitis B vaccine 2 2003 [id number] 6 104 SaadKline (SK) complet ed hepatitis A and hepatitis B vaccine DoD hepatitis A-hepatitis B vaccine 2003 [id number] 6 104 GlaxoSmithKli ne complet ed hepatitis A-hepatit is B vaccine 06/06/03 Given Ambulat ory Pharmac y HEP A-HEP B 1 2003 104 complet ed HISTORICA L INFORMATI ON - FROM OTHER REGISTRY, hepatitis A and hepatitis B vaccine Lot#: [id number] [facility] measles, mumps and rubella virus vaccine 0 2003 03 () Not Given measles, mumps and rubella virus vaccine DoD varicella virus vaccine 1 2003 21 () Not Given varicella virus vaccine DoD hepatitis A and hepatitis B vaccine 1 2003 [id number] 6 104 SaadKline (SKB) complet ed hepatitis A and hepatitis B vaccine DoD poliovirus vaccine, inactivated 2003 [id number] 10 sanofi pasteur complet ed polioviru s vaccine, inactivat ed 06/01/03 Given Ambulat ory Pharmac y tetanus-dipht h toxoids (Td) adult/adol 2003 [id number] 09 sanofi pasteur complet ed tetanus-d iphth toxoids (Td) adult/ado l 06/01/03 Given Ambulat ory Pharmac y tuberculin purified protein derivative 2003 [id number] sanofi pasteur complet ed tuberculi n purified protein derivativ e 06/01/03 Given Ambulat ory Pharmac y meningococcal polysaccharid e (MPSV4) 2003 [id number] sanofi pasteur complet ed meningoco ccal polysacch aride (MPSV4) 06/01/03 Given Ambulat ory Pharmac y influenza virus vaccine, whole virus 2003 [id number] Novartis Pharmaceutica ls complet ed influenza virus vaccine, whole virus 06/01/03 Given Ambulat ory Pharmac y MENINGOCOCCAL MPSV4 2003 32 complet ed HISTORICA L INFORMATI ON - FROM OTHER REGISTRY, meningoco ccal polysacch aride vaccine (MPSV4) Lot#: [id number] Mfr: SANOFI PASTEUR [facility] POLIO, UNSPECIFIED FORMULATION 2003 89 complet ed HISTORICA L INFORMATI ON - FROM OTHER REGISTRY, Sanofi Pasteur Lot#: [id number] [facility] TD(ADULT) UNSPECIFIED FORMULATION 2003 139 complet ed HISTORICA L INFORMATI ON - FROM OTHER REGISTRY, tetanus and diphtheri a toxoids, adsorbed, preservat gauri free, for adult use (2 Lf of tetanus toxoid and 2 Lf of diphtheri a toxoid) Lot#: [id number] Mfr: SANOFI PASTEUR [facility] tetanus and diphtheria toxoids, adsorbed, preservative free, for adult use (2 Lf of tetanus toxoid and 2 Lf of diphtheria toxoid) 0 2003 [id number] 09 Sanofi Pasteur ([facility]) complet ed tetanus and diphtheri a toxoids, adsorbed, preservat gauri free, for adult use (2 Lf of tetanus toxoid and 2 Lf of diphtheri a toxoid) DoD poliovirus vaccine, inactivated 0 2003 [id number] 10 Sanofi Pasteur (PMC) complet ed polioviru s vaccine, inactivat ed DoD influenza virus vaccine, whole virus 0 2003 [id number] PowderJect Pharmaceutica ls (PWJ) complet ed influenza virus vaccine, whole virus DoD meningococcal polysaccharid e vaccine (MPSV4) 0 2003 [id number] 32 Sanofi Pasteur (PMC) complet ed meningoco [...] [facility]am [facility] Red) TELE CONSULT [id number] chest congest ion with fever KATE SERGIO 03/23 [employer](F amily Practic e Red) [employer](Int Med Clinic) OUTPATIENT [id number] URI symptom s PITER MALDONADO A 03/23 Released w/o Limitations [employer](I nt Med [facility]) [facility](Fli ght Medicine Clinic) OUTPATIENT [id number] [place] part 2 YAYA SANTOS 04/27 Released w/o Limitations [employer](F light Medicin e Clinic) [employer]([facility]am [facility]a [facility] Red) TELE CONSULT [id number] foot swollen and cant walk on it; pt has an appt tomorro w but ... MODESTO HANKINS 05/05 [employer](F amily Practic e Red) [employer]([facility] Blue) OUTPATIENT [id number] swollen painful R foot RADDEN, JAIME D 05/05 Released w/o Limitations [employer](F amily Practic e Blue) [employer]([facility]am [facility] Red) OUTPATIENT [id number] pt injured r foot pain ful when put pressur e painful to touch SERGIO LOVE 05/06 Released w/o Limitations [employer](F amily Practic e Red) [employer](Opt ometry Clinic) OUTPATIENT [id number] possibl e foreign body LATIA CARVAJAL Margareth 05/06 Released w/o Limitations [employer](O ptometr y Clinic) [employer]([facility]) TELE CONSULT [id number] right foot pain RADDEN, JAIME D 05/08 [employer](F amily Practic e Blue) [employer]([facility]am [facility]) OUTPATIENT [id number] f/u on gout RADDEN, JAIME D 05/10 Released w/o Limitations [employer](F amily Practic e Blue) [facility](Fam mara Practice Blue) OUTPATIENT [id number] gout RADDEN, JAIME D 05/13 Released w/o Limitations [employer](F amily Practic e Blue) [facility](Fam mara Practice Blue) TELE CONSULT [id number] CONCERN S ABOUT DOM ZAMUDIO 05/14 [employer](F amily Practic e Blue) [employer]([facility]am [facility]a Practice Red) OUTPATIENT [id number] profile and med refill KATE, SERGIO 07/20 Released with Work/Duty Limitations [employer](F amily Practic e Red) [employer]([facility]am [facility] Red) TELE CONSULT [id number] referra l for orthope dic special ist for ankle KATE, SERGIO 08/02 [employer](F amily Practic e Red) [employer](Fam mara Practice Red) TELE CONSULT [id number] pt was sent to orthope dic and pt was giving a out of work [place] HANKINSMODESTO 09/09 [employer](F amily Practic e Red) [employer]([facility]am [facility] Practice Red) TELE CONSULT [id number] pt needs med refill ADALET 60mg pt has 5 pills left KATE, SERGIO 09/16 [employer]([facility] Pract[facility] Red) [employer]([facility] Red) OUTPATIENT [id number] f/u htn (adalat increas ed last appt) KATE, SERGIO 10/13 Released w/o Limitations [employer](F amily Practic e Red) [employer]([facility]) OUTPATIENT [id number] [place] DEBBIE Boone 12/13 Released w/o Limitations [employer](F amily Practic e Red) [employer]([facility] Practice Red) OUTPATIENT [id number] pt pcsing in eeds CONOR Blanchard 01/28 Released w/o Limitations [employer](F amily Practic e Red) [employer]([facility] Practice Red) OUTPATIENT [id number] medical EDIE Rinaldi 03/09 Released w/o Limitations [employer](F amily Practic e Red) [facility] Group(Fam mara Practice Red) OUTPATIENT [id number] F/U from appt Feb 22--med ical EDIE Rinaldi 03/23 Released w/o Limitations [employer](F amily Practic e Red) [employer]([facility] Practice Red) OUTPATIENT [id number] follow up on bp EDIE IBANEZSen 03/30 Released w/o Limitations [employer](F amily Practic e Red) [employer]([facility] Practice Red) TELE CONSULT [id number] Pt has lian hopson about pha and hiv test HANKINS, MODESTO 04/08 [employer](F am[facility] Practic e Red) [employer](PHA Cell) OUTPATIENT [id number] pha due oversea s dima ce JOIE Barrientos 04/11 Released w/o Limitations [employer](P BUENO Cell) [employer]([facility]) OUTPATIENT [id number] occp pe/stru ctural MX YAYA SANTOS E Rahul 04/12 Released w/o Limitations [employer](F light Medicin e Clinic) [employer]([facility]) OUTPATIENT [id number] Inproce ssing Record Review EDITH DESAI 07/21 Released w/o Limitations [employer]([facility]) [employer]([facility] Practice [facility]) OUTPATIENT [id number] PHA JOHANNY AGUILERA 04/27 Released w/o Limitations [employer]( amily Practic e Clinic) [employer]([facility]) TELE CONSULT [id number] f/u pha POLISH, UN DIAN 05/01 [employer]( amily Practic e Clinic) [employer]([facility]) OUTPATIENT [id number] f/u 3day bp check POLISH, UN DIAN 05/04 Released w/o Limitations [employer](F amily Practic e Clinic) [employer]([facility] Surgeon Office) OUTPATIENT [id number] [facility]- AUDIOGR AM,MED HY,PHY EX,WORK PLACE EXP,RES P QUEST JUANJO CLEARY 07/05 Released w/o Limitations [employer]( light Surgeon Office) [employer]([facility] Practice Clinic) OUTPATIENT [id number] JANNA Garcia 08/03 Sick at Home/Quarter s [employer]( amily Practic e Clinic) [employer]([facility]) OUTPATIENT [id number] - MISSY MCKEON 11/05 Released w/o Limitations [employer](F amily Practic e Clinic) [employer]([facility]) OUTPATIENT [id number] FT-BRISA BOURGEOIS 11/06 Sick at Home/Quarter s [employer](F amily Practic e Clinic) [employer]([facility]) OUTPATIENT [id number] ft nasal congest ion product gauri cough clear sore throat JONEL BUSBY 11/09 Sick at Home/Quarter s [employer](F amily Practic e Clinic) [employer]([facility]) DENTAL [id number] Exam JOSE RAFAEL MAGAÑA 12/21 Released w/o Limitations [employer](D ental Clinic) [employer]([facility]) DENTAL [id number] DEION Pardo 12/21 Released w/o Limitations [employer](D ental Clinic) [employer]([facility]) TELE CONSULT [id number] VASECTO MY CONSULT XIANG MATHUR 01/28 [employer](F amily Practic e Clinic) [employer]([facility]) OUTPATIENT [id number] Vas Consult XIANG MATHUR 03/01 Released w/o Limitations [employer](F amily Practic e Clinic) [employer]([facility]) OUTPATIENT [id number] F/U HBP, LABS XIANG MATHUR 04/02 Released w/o Limitations [employer](F amily Practic e Clinic) [employer]([facility]) OUTPATIENT [id number] PHA ANN MARIE COLÓN R 04/18 Released w/o Limitations [employer](P BUENO Cell) [employer]([facility]) TELE CONSULT [id number] CONLEAV E FOR SURGERY BRYANNA ADORNO R 04/25 [employer](F amily Practic e Clinic) [employer]([facility] Practice [facility]) TELE CONSULT [id number] con lv or quarter s XIANG MATHUR 08/12 [employer](F amily Practic e Clinic) [employer]([facility] Practice [facility]) OUTPATIENT [id number] Per XIANG Fitzpatrick 08/13 Released w/o Limitations [employer](F amily Practic e Clinic) [employer]([facility] Practice [facility]) TELE CONSULT [id number] F/U BLOOD PRESSMARK KILLIAN 09/02 [employer](F amily Practic e Clinic) [employer]([facility] Practice [facility]) TELE CONSULT [id number] Deploym ent ELMER Fofana 09/04 [employer](F amily Practic e Clinic) [employer]([facility]) OUTPATIENT [id number] finger pain x months/ pt request ed alterna abraham pcm. (pt's pcm on leave) MAYITO CHAVEZ 09/05 Released w/o Limitations [employer](F amily Practic e Clinic) [employer]([facility]) TELE CONSULT [id number] CALL BACK FOR DEPLOYM ENT PAPERWO ELMER BORDEN 09/[employer](F amily Practic e Clinic) [employer](Mii t Surgeon Office) OUTPATIENT [id number] [place] audio normal no exam needed RAMILA DAMIAN 09/12 Released w/o Limitations [employer](F light Surgeon Office) [employer](Mii t Surgeon Office) OUTPATIENT [id number] [place] STERLING GEE 09/20 Released w/o Limitations [employer](F light Surgeon Office) [employer]([facility] Practice [facility]) TELE CONSULT [id number] RETRO REFERRA L CHAPIS LEE 12/06 Referred for Appointment [employer](F amily Practic e Clinic) [employer]([facility] Practice [facility]) TELE CONSULT [id number] MARK Stinson 12/06 [employer](F amily Practic e Clinic) [employer]([facility] Practice [facility]) TELE CONSULT [id number] RETRO REFERRA L MISSY CORTEZ 12/12 Referred for Appointment [employer](F amily Practic e Clinic) [employer]([facility]) TELE CONSULT [id number] NAUSEA/ BUENO X TODAY CHAPIS FULTON 12/24 Referred for Appointment [employer](F amily Practic e Clinic) [employer]([facility]) TELE CONSULT [id number] work excuse/ quarter s CANDY TOPETE 12/24 [employer](F amily Practic e Clinic) [employer]([facility]) TELE CONSULT [id number] Quarter s Paper[employer] r[employer] CANDY TOPETE 01/03 [employer](F amily Practic e Clinic) [employer]([facility]) OUTPATIENT [id number] NVD, BUENO, chills -FT- JUANJO FULTON 01/24 Sick at Home/Quarter s [employer](F amily Practic e Clinic) [employer]([facility]) OUTPATIENT [id number] ON GOING RASH X 1 MTH //POSSI BLE DERMATO LOGY REFERBRYANNA CHAVEZ 02/05 Released w/o Limitations [employer](F amily Practic e Clinic) [employer]([facility]) TELE CONSULT [id number] CHAPIS Portillo 02/18 Referred for Appointment [employer](F amily Practic e Clinic) [employer]([facility]) OUTPATIENT [id number] SORE THROAT, HEADACH E, FEVER, CHILLS TANNER VILLASEÑOR 02/28 Released w/o Limitations [employer](F amily Practic e Clinic) [employer]([facility]) TELE CONSULT [id number] KEENAN SHERIFF 03/11 Referred for Appointment [employer](F amily Practic e Clinic) [employer]([facility]) TELE CONSULT [id number] NURSE CONSULT /REACTI ON TO MEDS KEENAN SHERIFF 03/20 [employer](F amily Practic e Clinic) [employer]([facility]) OUTPATIENT [id number] sore throat/ med side effects CANDY TOPETE 03/24 Released w/o Limitations [employer](F amily Practic e Clinic) [employer]([facility] Practice Clinic) OUTPATIENT [id number] MARK Benedict 04/21 Sick at Home/Quarter s [employer](F amily Practic e Clinic) [employer]([facility] Cell) OUTPATIENT [id number] PHA/EMS VICKIE SIU Lis 05/29 Released w/o Limitations [employer](P BUENO Cell) [employer](Fam Med Cl Tm B Non-Ad) TELE CONSULT [id number] ACTIVE DUTY/ RIGHT CALF PAIN KEENAN SHERIFF 08/19 [employer](F am Med Cl Tm B Non-Ad) [employer]([facility]) OUTPATIENT [id number] right calf pain since last y CANDY TOPETE 08/20 Released w/o Limitations [facility](F amily Practic e Clinic) [employer](Fam Med Cl Tm B Non-Ad) TELE CONSULT [id number] LIAN HOLT PROFILE /WAS SEEN YESTERD AY KEENAN SHERIFF 08/21 [employer](F am Med Cl Tm B Non-Ad) [employer](Fam Med Cl Tm B Non-Ad) TELE CONSULT [id number] profile extensi on request KISHORE MARROQUIN 09/05 [employer](F am Med Cl Tm B Non-Ad) [employer](Fam Med Cl Tm B Non-Ad) TELE CONSULT [id number] PROFILE EXTENSI ON CARAKISHORE O 09/08 [employer](F am Med Cl Tm B Non-Ad) [employer](Fam Med Cl Tm B Non-Ad) OUTPATIENT [id number] fu right leg / profile CANDY TOPETE 09/17 Released w/o Limitations [employer](F am Med Cl Tm B Non-Ad) [employer]([facility] Affiliate s) OUTPATIENT [id number] F/U PROFILE JUANJO FULTON 10/03 Released w/o Limitations [employer](F HI Affilia nikolay) [employer](y sical Therapy Clinic) OUTPATIENT [id number] SUMIT ROSEN 10/03 Released with Work/Duty Limitations [employer](P hysical Therapy Clinic) [employer](Phy sical Therapy Clinic) OUTPATIENT [id number] Rt lower leg pain MARCIAL, LUIS 10/09 Released with Work/Duty Limitations [employer](P hysical Therapy Clinic) [employer](Phy sical Therapy Clinic) OUTPATIENT [id number] NATALIIA GUERIN 10/14 Released with Work/Duty Limitations [employer](P hysical Therapy Clinic) [employer](Phy sical Therapy Clinic) OUTPATIENT [id number] MARCIAL, LUIS 10/16 Released with Work/Duty Limitations [employer](P hysical Therapy Clinic) [employer](Phy sical Therapy Clinic) OUTPATIENT [id number] BRISA GONZALEZ 10/28 Released with Work/Duty Limitations [employer](P hysical Therapy Clinic) [employer](Phy sical Therapy Clinic) OUTPATIENT [id number] SUMIT ROSEN 10/29 Released with Work/Duty Limitations [employer](P hysical Therapy Clinic) [employer](Fli ght Surgeon Office) [facility]PATIENT [id number] [facility] Released w/o Limitations [employer](F light Surgeon Office) [employer](Phy sical Therapy Clinic) OUTPATIENT [id number] BRISA GONZALEZ 12/19 Released w/o Limitations [employer](P hysical Therapy Clinic) [employer](Phy sical Therapy Clinic) OUTPATIENT [id number] MARCIAL, LUIS 12/29 Released w/o Limitations [employer](P hysical Therapy Clinic) [employer](Phy sical Therapy Clinic) OUTPATIENT [id number] MARCIAL, LUIS 01/02 Released w/o Limitations [employer](P hysical Therapy Clinic) [employer](Phy sical Therapy Clinic) OUTPATIENT [id number] MARCIAL, LUIS 01/05 Released w/o Limitations [employer](P hysical Therapy Clinic) [employer](Phy sical Therapy Clinic) OUTPATIENT [id number] SUMIT ROSEN 01/26 Released with Work/Duty Limitations [employer](P hysical Therapy Clinic) [employer](Phy sical Therapy Clinic) OUTPATIENT [id number] LUIS MARCIAL 02/13 Released with Work/Duty Limitations [employer](P hysical Therapy Clinic) [employer](Phy sical Therapy Clinic) OUTPATIENT [id number] MARCIALLUIS MARCUS 02/20 Released with Work/Duty Limitations [employer](P hysical Therapy Clinic) [employer](Phy sical Therapy Clinic) OUTPATIENT [id number] NATALIIA GUERIN 03/10 Released with Work/Duty Limitations [employer](P hysical Therapy Clinic) [employer]([facility] Affiliate s) TELE CONSULT [id number] PRE DEPLOYM ENT JEDAN CE APR 14 2011 DAYTON LORA 03/13 [employer]([facility] Affilia nikolay) [employer](Phy sical Therapy Clinic) OUTPATIENT [id number] BRISA GONZALEZ 03/13 Released with Work/Duty Limitations [employer](P hysical Therapy Clinic) [employer](Phy sical Therapy Clinic) OUTPATIENT [id number] LUIS MARCIAL 03/16 Released with Work/Duty Limitations [employer](P hysical Therapy Clinic) [employer](Phy sical Therapy Clinic) OUTPATIENT [id number] SUMIT ROSEN E 04/10 Released with Work/Duty Limitations [employer](P hysical Therapy Clinic) [employer](Fam Med Cl Tm B Non-Ad) OUTPATIENT [id number] F/U PROFILE / MED REFROHIT GREER 05/24 Released w/o Limitations [employer](F am Med Cl Tm B Non-Ad) [employer]([facility] Team D) OUTPATIENT [id number] chest cold, hurt finger SKYLAR ARIAS 07/22 Released w/o Limitations [employer](O del cid [facility] Team D) [employer](Fam Med Cl Tm B Non-Ad) TELE CONSULT [id number] Notes Entered by: RICHARD CRYSTAL 03 Aug 2011 0810 ------- ------- ------- ------- -- Physica l Therapy ROHIT Stewart 08/02 [facility](F am Med Cl Tm B Non-Ad) [facility]) TELE CONSULT [id number] Notes Entered by: Da WORKMAN 01 Dec 2011 1158 ------- ------- ------- ------- -- ER VISIT F/U MISSY CORTEZ 11/30 [facility]) [facility] Med Cl Tm B Non-Ad) TELE CONSULT [id number] Notes Entered by: Da WORKMAN 01 Dec 2011 1204 ------- ------- ------- ------- -- L. FOOT PAIN REYNA MOREL 11/30 [facility](F am Med Cl Tm B Non-Ad) [facility]) OUTPATIENT [id number] left foot pain//c VENITA Kumar 12/02 Released w/o Limitations [facility](Fam Med Cl Tm B Non-Ad) TELE CONSULT [id number] Notes Entered by: REYNA MOREL 24 Dec 2011 1339 ------- ------- ------- ------- -- Con leave request REYNA MOREL 12/23 [employer](F am Med Cl Tm B Non-Ad) [facility]) TELE CONSULT [id number] Notes Entered by: STACY LIN 29 Dec 2011 0941 ------- ------- ------- ------- -- CON LEAVE EXT REYNA MOREL 12/28 [facility] nikolay) [facility](Fam Med Cl Tm B Non-Ad) TELE CONSULT [id number] Notes Entered by: ROHIT CLARK 11 Jan 2012 1712 ------- ------- ------- ------- -- ROHIT Tan 01/10 [facility] Group(F am Med Cl Tm B Non-Ad) [employer](Fam Med Cl Tm B Non-Ad) OUTPATIENT [id number] nausea diarrhe a some lighthe adednes s x 3 days// DEJA LEOS 04/29 Sick at Home/Quarter s [facility](F am Med Cl Tm B Non-Ad) [facility] Surgeon Office) OUTPATIENT [id number] Notes Entered by: Da WORKMAN 02 May 2012 0935 ------- ------- ------- ------- -- f/u n/DELGADO Glover 05/02 Sick at Home/Quarter s [facility]( light Surgeon Office) [facility](Fam Med Cl Tm B Non-Ad) TELE CONSULT [id number] Notes Entered by: KAMERON GE 30 May 2012 1304 ------- ------- ------- ------- -- ACTIVE DUTY PT WITH RASH/ RIGHT ARM MISSY CORTEZ 05/30 [facility](F am Med Cl Tm B Non-Ad) [facility](Fam Med Cl Tm B Non-Ad) OUTPATIENT [id number] nurse clinic - rash// MISSY CORTEZ 05/30 Released w/o Limitations [employer] [facility](F am Med Cl Tm B Non-Ad) [facility] Surgeon Office) OUTPATIENT [id number] [facility] BATESBEVERLY GARZA 06/06 Released w/o Limitations [employer](F light Surgeon Office) [facility](Fam Med Cl Tm B Non-Ad) TELE CONSULT [id number] Notes Entered by: ALIYA MCKEON 04 Jul 2012 1012 ------- ------- ------- ------- -- Network Results -RHEUMA TOLOGY 05/28 MISSY CORTEZ 07/04 [employer](F am Med Cl Tm B Non-Ad) [employer](PHA Cell) OUTPATIENT [id number] ZACHARY MARCH 07/12 Released w/o Limitations [employer](P BUENO Cell) [employer](Fam Med Cl Tm B Non-Ad) OUTPATIENT [id number] MED CK, BP CK ROHIT CLARK 08/03 Released w/o Limitations [employer](F am Med Cl Tm B Non-Ad) [employer](Dep loyment Health Assessmen ts) OUTPATIENT [id number] Pre BREE VILLALOBOS 08/16 Released w/o Limitations [employer](D eployme Health Assessm ents) [employer]([facility]) OUTPATIENT [id number] Notes Entered by: William ROSE 06 Sep 2012 1231 ------- ------- ------- ------- -- VAIBHAV STOKES 09/06 Released w/o Limitations [employer]([facility]) [employer](Fam Med Cl Tm B Non-Ad) TELE CONSULT [id number] Notes Entered by: NEELAM CONROY 14 Sep 2012 1318 ------- ------- ------- ------- -- PRE DEPLOY ENT ROHIT MARTINES 09/14 [employer](F am Med Cl Tm B Non-Ad) [facility] Facility OUTPATIENT [id number] Theater 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 04/27 Released w/o Limitations Theater Fac[facility] y [employer](Fam Med Cl Tm B Non-Ad) TELE CONSULT [id number] Notes Entered by: KAMERON GE 04 Sep 2013 0837 ------- ------- ------- ------- -- ACTIVE DUTY/ VOMITIN G/ NAUSEA KEENAN SHERIFF 09/04 Referred for Appointment [facility](F am Med Cl Tm B Non-Ad) [facility](Fli ght Surgeon Office) OUTPATIENT [id number] [facility] SARAH JONES 09/04 Released w/o Limitations [employer] [facility](F light Surgeon Office) rd [facility](Fam Med Cl Tm B Non-Ad) OUTPATIENT [id number] BP med refill ROHIT CLARK 09/06 Released w/o Limitations [employer] [facility](F am Med Cl Tm B Non-Ad) [facility] OUTPATIENT [id number] sleep LONGBRENDADA Hitesh 09/06 Released w/o Limitations [employer] [facility](I ntegrat ed Behavio ral Hlth Cln) rd [facility](Dep [facility] Health Assessmen ts) OUTPATIENT [id number] DHA3, 40 min BREE HOLT 09/14 Released w/o Limitations [employer](D eployme nt Health Assessm ents) [facility](PHA Cell) OUTPATIENT [id number] PHA-WHA TO BE COMPLET DIANA CALDWELL 09/14 Released w/o Limitations [employer](P BUENO Cell) [facility]) OUTPATIENT [id number] F/U sleep LONGDEANGELOVIDA L 09/22 Released w/o Limitations [employer](I ntegrat ed Behavio ral Hlth Cln) rd [facility](Fam Med Cl Tm B Non-Ad) TELE CONSULT [id number] Notes Entered by: KAMERON GE 22 Sep 2013 1527 ------- ------- ------- ------- -- ACTIVE DUTY/ PULLED GROIN WHILE RUNNING KEENAN SHERIFF 09/22 Referred for Appointment rd [facility](F am Med Cl Tm B Non-Ad) [facility](Fam Med Cl Tm B Non-Ad) OUTPATIENT [id number] left ROHIT Kinney 09/25 Released with Work/Duty Limitations [employer](F am Med Cl Tm B Non-Ad) [employer] OUT[facility] [id number] F/U armand FORBESBRENDAFABIAN Proctor 09/28 Released w/o Limitations [employer](I ntegrat ed Behavio ral [facility] Cl[facility]) [employer](Fam Med Cl Tm B Non-Ad) TELE CONSULT [id number] Notes Entered by: KAMERON GE 20 Oct 2013 0946 ------- ------- ------- ------- -- ACTIVE DUTY/ POSSIBL E STREP THROAT KEENAN SHERIFF 10/20 Referred for Appointment [employer](F am Med Cl Tm B Non-Ad) [employer](Fam Med Cl Tm B Non-Ad) TELE CONSULT [id number] Notes Entered by: KEENAN SHERIFF 24 Oct 2013 1321 ------- ------- ------- ------- -- Lab results KEENAN SHERIFF 10/24 Referred for Appointment [employer](F am Med Cl Tm B Non-Ad) [employer](Fam Med Cl Tm B Non-Ad) TELE CONSULT [id number] Notes Entered by: Edgar PENA 01 Dec 2013 0743 ------- ------- ------- ------- -- ER Farhan/KEENAN GALLAGHER 12/01 Immediate Referral [employer](F am Med Cl Tm B Non-Ad) [employer](Fam Med Cl Tm B Non-Ad) OUTPATIENT [id number] f/u - left ROHIT Jones 12/04 Sick at Home/Quarter s [employer](F am Med Cl Tm B Non-Ad) [employer](Fam Med Cl Tm B Non-Ad) OUTPATIENT [id number] F/U ROHIT Vidal 12/08 Released w/o Limitations [employer](F am Med Cl Tm B Non-Ad) [employer](Fam Med Cl Tm B Non-Ad) TELE CONSULT [id number] Notes Entered by: KAMERON GE 18 Jan 2014 1033 ------- ------- ------- ------- -- ACTIVE DUTY/ PROFILE ISSUE CHASK[place]ALL PITTMANPETTY Mirza 01/18 Referred for Appointment [employer](F am Med Cl Tm B Non-Ad) [employer](Fam Med Cl Tm B Non-Ad) TELE CONSULT [id number] Notes Entered by: BROOKE HERNADEZ 09 Mar 2014 1523 ------- ------- ------- ------- -- Out Process bertram DOHERTYTOYA FLOR N 03/09 Released to [employer](F am Med Cl Tm B Non-Ad) [place] [address](N G 104 Med Sq-FM) OUTPATIENT [id number] Notes Entered by: Antoinette GUILLEN II 16 Jul 2016 0730 ------- ------- ------- ------- -- Short [facility] MISTYDOT Espinoza 07/16 Released w/o Limitations [facility] [place] [address](A FNG 104 Med Sq-FM) [place] [address](AFN G 104 Med Sq-FM) OUTPATIENT [id number] Notes Entered by: MARCIA MEDEL 28 Nov 2016 0941 ------- ------- ------- ------- -- Med f/u 469 MARCIA MEDEL 11/28 Released with Work/Duty Limitations [facility] [place] [address](A FNG 104 Med Sq-FM) [place] [id number](AFN G 104 Med Sq-FM) OUTPATIENT [id number] Notes Entered by: LY JACKSON 15 Jan 2017 1329 ------- ------- ------- ------- -- Provide r f/u JOHANNY BRADEN 01/15 Released w/o Limitations [facility] [place] [address](A FNG 104 Med Sq-FM) [place] [address](AFN G 104 Med Sq-FM) OUTPATIENT [id number] Notes Entered by: TREY BULLOCK 18 Mar 2017 1320 ------- ------- ------- ------- -- JOSE RAFAEL SHORE 03/18 Released with Work/Duty Limitations [facility] [place] [address](A FNG 104 Med Sq-FM) [place] [address](AFN G 104 Med Sq-FM) OUTPATIENT [id number] Notes Entered by: HOLLIE ALTMAN 09 Apr 2017 1726 ------- ------- ------- ------- -- MARTHA Esparza 04/09 Released w/o Limitations [facility] [place] [address](A FNG 104 Med Sq-FM) [place] [address](AFN G 104 Med Sq-FM) OUTPATIENT [id number] Notes Entered by: TREY BULLOCK 16 Apr 2017 1511 ------- ------- ------- ------- -- Luis Enrique mirza MD note review JOSE RAFAEL BULLOCK 04/16 Released with Work/Duty Limitations [facility] [place] [address](A FNG 104 Med Sq-FM) [place] [address](AFN G 104 Med Sq-FM) OUTPATIENT [id number] 3 Notes Entered by: JOHANNY BRADEN 25 Feb 2018 1317 ------- ------- ------- ------- -- right Juan M harris tendoni tis, RTD JOHANNY BRADEN 02/25 [facility] w/o Limitations [facility] [place] [address](A FNG 104 Med Sq-FM) [place] [address](AFN G 104 Med Sq-FM) OUTPATIENT [id number] 4 Notes Entered by: JOHANNY BRADEN 15 Apr 2018 1026 ------- ------- ------- ------- -- Occ/Ski n exam and PHAQ JOHANNY BRADEN 04/15 [facility]ased [facility] [place] [place] [address](A FNG 104 Med Sq-FM) [place] [address](AFN G 104 Med Sq-FM) OUTPATIENT [id number] 7 Notes Entered by: MARICRUZ MONTERO 21 May 2018 1040 ------- ------- ------- ------- -- 469 f/u MARTHA MONTERO 05/21 [facility]ased w/o Limitations [facility] [place] [address](A FNG 104 Med Sq-FM) [place] [address](AFN G 104 Med Sq-FM) OUTPATIENT [id number] 8 Notes Entered by: MARCIA MEDEL 17 Jun 2018 1443 ------- ------- ------- ------- -- right foot MARCIA MEDEL 06/17 Released with Work/Duty [facility]itations [facility] [place] [address](A FNG 104 Med Sq-FM) [place] [address](AFN G 104 Med Sq-FM) OUTPATIENT [id number] 5 Notes Entered by: MARCIA MEDEL 01 Oct 2018 0949 ------- ------- ------- ------- -- follow up juan m GARCIASMARCIA WILKINSON JULIA 10/01 Released with Work/Duty Limitations [facility] [place] [address](A FNG 104 Med Sq-FM) [facility], [facility](AFN G 104 Med Sq-FM) OUTPATIENT [id number] 0 Notes Entered by: MARCIA MEDEL 08 Mar 2019 1449 ------- ------- ------- ------- -- R foot pain ANTOINE MEDELTIA DUMONT 03/08 Released with Work/Duty Limitations [facility] [place] [address](A FNG 104 Med Sq-FM) [facility], [place] [address](AFN G 104 Med Sq-FM) TELE CONSULT [id number] 0 Notes Entered by: MARCIA MEDEL 09 Mar 2019 1020 ------- ------- ------- ------- -- foot pain MARCIA MEDEL 03/09 [facility] [place] [address](A FNG 104 Med Sq-FM) [place] [address](AFN G 104 Med Sq-FM) OUTPATIENT [id number] 7 Notes Entered by: SCOTT HINDS 09 Mar 2019 1439 ------- ------- ------- ------- -- Annual MSE / [place] exams ANTOINE MEDELTIA DUMONT 03/09 Released with Work/Duty Limitations [facility] [place] [address](A FNG 104 Med Sq-FM) [facility], [facility](AFN G 104 Med Sq-FM) OUTPATIENT [id number] Notes Entered by: MARCIA MEDEL 21 Mar 2019 1022 ------- ------- ------- ------- -- PHAQ MARCIA MEDEL 03/21 Released with Work/Duty Limitations [facility] [place] [place] [address](A FNG 104 Med Sq-FM) [place] [address](AFN G 104 Med Sq-FM) TELE CONSULT [id number] Notes Entered by: MARCIA MEDEL 14 Apr 2019 1039 ------- ------- ------- ------- -- Op note MARCIA MEDEL 04/14 [facility] [place] [address](A FNG 104 Med Sq-FM) [facility], [facility](AFN G 104 Med Sq-FM) TELE CONSULT [id number] 9 Notes Entered by: MARCIA MEDEL 21 Apr 2019 1409 ------- ------- ------- ------- -- foot pain MARCIA MEDEL 04/20 [facility] [place] [address](A FNG 104 Med Sq-FM) [place] [address](AFN G 104 Med Sq-FM) TELE CONSULT [id number] Notes Entered by: MARCIA MEDEL 26 Apr 2019 1249 ------- ------- ------- ------- -- R foot pain MARCIA MEDEL 04/25 [facility] [place] [address](A FNG 104 Med Sq-FM) [place] [address](AFN G 104 Med Sq-FM) TELE CONSULT [id number] Notes Entered by: MARCIA MEDEL 17 May 2019 1151 ------- ------- ------- ------- -- foot pain MARCIA MEDEL 05/16 [facility] [place] [address](A FNG 104 Med Sq-FM) [place] [address](AFN G 104 Med Sq-FM) TELE CONSULT [id number] 4 Notes Entered by: TREY BULLOCK 08 Jun 2019 0912 ------- ------- ------- ------- -- MD note review JOSE RAFAEL BULLOCK 06/07 [facility] [place] [address](A FNG 104 Med Sq-FM) [place] [address](AFN G 104 Med Sq-FM) TELE CONSULT [id number] MARCIA MEDEL 08/14 [facility] [place] [address](A FNG 104 Med Sq-FM) [place] [address](AFN G 104 Med Sq-FM) TELE CONSULT [id number] 7 Notes Entered by: MARCIA MEDEL 12 Oct 2019 1405 ------- ------- ------- ------- -- follow up MARCIA MEDEL 10/11 [facility] [place] [address](A FNG 104 Med Sq-FM) [place] [address](AFN G 104 Med Sq-FM) OUTPATIENT [id number] Notes Entered by: MARCIA MEDEL 24 Oct 2019 0916 ------- ------- ------- ------- -- Right foot pain MARCIA MEDEL 10/23 Released with Work/Duty Limitations [facility] [place] [address](A FNG 104 Med Sq-FM) [place] [address](AFN G 104 Med Sq-FM) TELE CONSULT [id number] Notes Entered by: MARCIA MEDEL 09 Jan 2020 1459 ------- ------- ------- ------- -- R foot pain MARCIA MEDEL 01/08 [facility] [place] [address](A FNG 104 Med Sq-FM) [facility], [place] [address](AFN G 104 Med Sq-FM) TELE CONSULT [id number] Notes Entered by: MARCIA MEDEL 05 Mar 2020 0904 ------- ------- ------- ------- -- R foot pain MARCIA MEDEL 03/05 [facility] [place] [address](A FNG 104 Med Sq-FM) [facility], [place] [address](AFN G 104 Med Sq-FM) OUTPATIENT [id number] MARCIA MEDEL 03/14 Released w/o Limitations [facility] [place] [address](A FNG 104 Med Sq-FM) [facility], [place] [address](AFN G 104 Med Sq-FM) OUTPATIENT [id number] Notes Entered by: MARCIA MEDEL 14 Mar 2020 1055 ------- ------- ------- ------- -- PHAQ MARCIA MEDEL 03/14 Released with Work/Duty Limitations [facility] [place] [address](A FNG 104 Med Sq-FM) [facility], [place] [address](AFN G 104 Med Sq-FM) TELE CONSULT [id number] Notes Entered by: MARCIA MEDEL 03 Apr 2020 1443 ------- ------- ------- ------- -- R foot pain MARCIA MEDEL 04/03 [facility] [place] [address](A FNG 104 Med Sq-FM) [facility], [place] [address](AFN G 104 Med Sq-FM) TELE CONSULT [id number] 3 Notes Entered by: MARCIA MEDEL 09 Apr 2020 1056 ------- ------- ------- ------- -- return MARCIA MEDEL 04/09 [facility] [place] [address](A FNG 104 Med Sq-FM) [facility], [place] [address](AFN G 104 Med Sq-FM) OUTPATIENT [id number] 4 Notes Entered by: RUTH SHIRLEY 24 Apr 2020 1247 ------- ------- ------- ------- -- Audiogr am /Respir ator Fit Test /[place] Questio nnaire/ HIV/Vit als/ Provide r([place]-Ph ysica MARCIA MEDEL 04/24 [facility] Limitations [facility] [place] [address](A FNG 104 Med Sq-FM) [facility], [place] [address](AFN G 104 Med Sq-FM) TELE CONSULT [id number] Notes Entered by: MARCIA MEDEL 11 Jul 2020 1554 ------- ------- ------- ------- -- R foot pain MARCIA MEDEL 07/11 [facility](A FNG 104 Med Sq-FM) [facility], [place] [address](AFN G 104 Med Sq-FM) OUTPATIENT [id number] Notes Entered by: MARCIA MEDEL 10 Sep 2020 0936 ------- ------- ------- ------- -- MARCIA HOANG 09/10 Sick at Home/Quarter s [facility] [place] [address](A FNG 104 Med Sq-FM) [place] [address](AFN G 104 Med Sq-FM) TELE CONSULT [id number] MARCIA MEDEL 12/10 [facility] [place] [address](A FNG 104 Med Sq-FM) [place] [address](AFN G 104 Med Sq-FM) TELE CONSULT [id number] MARCIA MEDEL 01/01 [facility] [place] [address](A FNG 104 Med Sq-FM) [place] [address](AFN G 104 Med Sq-FM) TELE CONSULT [id number] MARCIA MEDEL 01/07 [facility] [place] [address](A FNG 104 Med Sq-FM) [place] [address](AFN G 104 Med Sq-FM) TELE CONSULT [id number] MARCIA MEDEL 02/05 [facility] [place] [address](A FNG 104 Med Sq-FM) [place] [address](AFN G 104 Med Sq-FM) OUTPATIENT [id number] Notes Entered by: MARCIA MEDELCONNIE 25 Feb 2021 1434 ------- ------- ------- ------- -- JORGE LUIS MARCIA MEDELCONNIE 02/25 Released with Work/Duty Limitations [facility] [place] [address](A FNG 104 Med Sq-FM) [place] [address](AFN G 104 Med Sq-FM) OUTPATIENT [id number] Notes Entered by: SARAH MCPHERSON 24 Apr 2021 1402 ------- ------- ------- ------- -- Occupat ionnm Health JOSE RAFAEL Baig 04/24 Released with Work/Duty Limitations [facility] [place] [address](A FNG 104 Med Sq-FM) [place] [address](AFN G 104 Med Sq-FM) TELE CONSULT [id number] MARCIA MEDEL NOONE 09/24 [facility] [place] [address](A FNG 104 Med Sq-FM) [place] [address](AFN G 104 Med Sq-FM) TELE CONSULT [id number] MARCIA MEDEL NOONE 10/22 [facility] [place] [address](A FNG 104 Med Sq-FM) [place] [address](AFN G 104 Med Sq-FM) TELE CONSULT [id number] MARCIA MEDEL NOONE 01/15 [facility] [place] [address](A FNG 104 Med Sq-FM) [place] [address](AFN G 104 Med Sq-FM) TELE CONSULT [id number] MARCIA MEDEL NOONE 03/13 [facility] [place] [address](A FNG 104 Med Sq-FM) [place] [address](AFN G 104 Med Sq-FM) OUTPATIENT [id number] 5 Notes Entered by: MARCIA MEDEL NOCONNIE 17 Mar 2022 1610 ------- ------- ------- ------- -- JORGE LUIS MARCIA MEDEL NOCONNIE 03/17 Released with Work/Duty Limitations [facility] [place] [address](A FNG 104 Med Sq-FM) [place] [address](AFN G 104 Med Sq-FM) OUTPATIENT [id number] Notes Entered by: MALVIN HARTLEY 16 Apr 2022 1641 ------- ------- ------- ------- -- KEKE Armstrong 04/16 Released w/o Limitations [facility] [place] [address](A FNG 104 Med Sq-FM) [facility] En[facility] [id number] 04/08 [facility] [id number] 05/18 [facility] Encounter [id number]/04 [facility] Out[facility] Encounter [id number] 03/02 [facility] OFFICE O/P NEW MOD 45 MIN [id number] 1. Diagnos is: ICD-10- CM I10 Essenti al (primar y) hyperte GERARD Fortune 03/02 [facility] Outpatient Encounter [id number] 03/02 [facility] CASE MANAGEMENT [id number] Diagnos is: ICD-10- CM Z71.89 Other specifi ed rehabilitation counselor JOY Contreras 03/03 [facility] Out[facility] Encounter [id number] 03/07 [facility] Encounter [id number] 03/08 [facility] Encounter [id number] 03/10 [facility]counter [id number] 03/10 [facility] Out[facility] Encounter [id number] 03/13 [facility] CASE MANAGEMENT [id number] Diagnos is: ICD-10- CM Z71.89 Other specifi ed rehabilitation counselor JOY Contreras 03/20 [facility] Out[facility] Encounter [id number] 03/27 [facility] CASE MANAGEMENT [id number] Diagnos is: ICD-10- CM Z71.89 Other specifi ed rehabilitation counselor JOY Contreras 03/27 [facility] Out[facility]counter [id number] 03/27 [facility] Out[facility] Encounter [id number] 03/29 [facility] Out[facility] Encounter [id number] 04/11 [facility] OFFICE O/P NEW HI 60 MIN [id number] Diagnos is: ICD-10- CM M77.11 Lateral epicond ylitis, right elbow Niharika FLAHERTY 05/22 [facility] Out[facility] Encounter [id number] 06/05 [facility] Out[facility] Encounter [id number] 06/20 [facility] Outpatient Encounter [id number] 06/23 [facility] Procedures Combined list of: 1) Procedures from Department of Veterans Affairs facilities going back up to thelast 18 months, not all [place] non-surgical procedures are included; 2) All procedures from the Department of Defense facilities. Procedure Procedure Type Code Date Perfomer Comments Sourc e Spirometry Spirometry 54690 2013 SARAH JONES [facility] Audiogram (Screening) Audiogram (Screening) 02706 2013 SARAH JONES [facility] Psychometric Neuropsych Testing Battery Admin By Computer Psychometric Neuropsych Testing Battery Admin By Computer 33842 2012 ABHISHEK MAS [facility] Threshold Audiogram (Pure Tone) Threshold Audiogram (Pure Tone) 33798 2012 BEVERLY BATES [facility] Pulmonary Function Tests Pulmonary Function Tests 70551 2012 BEVERLY BATES [facility] IV Infusion For Hydration Each Additional Hour IV Infusion For Hydration Each Additional Hour 13114 2012 DEJA LEOS IV Infusion For Hydration 31 Minutes To 1 Hour IV Infusion For Hydration 31 Minutes To 1 Hour 89471 2012 DEJA LEOS Intravenous Catheter Placement Intravenous Catheter Placement 55592 2012 DEJA LEOS Physical Medicine Physical Therapy Re-Evaluation Physical Medicine Physical Therapy Re-Evaluation 47104 2011 SUMIT ROSEN E [facility] Modalities Heat Hot Packs Modalities Heat Hot Packs 83400 2011 MARCIALLUIS MARCUS [facility] Physical Therapy Neuromuscular Re-education Physical Therapy Neuromuscular Re-education 51978 2011 MARCIAL, PEDRO [facility] Physical Therapy: ___ Se ion Segments, 15 Minutes Each Physical Therapy: ___ Session Segments, 15 Minutes Each 36375 2011 MARCIAL, LUIS DoD Modalities Heat Hot Packs Modalities Heat Hot Packs 01319 2011 BRISA GONZALEZ [facility] Physical Therapy Neuromuscular Re-education Physical Therapy Neuromuscular Re-education 56063 2011 GONZALEZ BRISA Harris [facility] Physical Therapy: ___ Se ion Segments, 15 Minutes Each Physical Therapy: ___ Session Segments, 15 Minutes Each 39518 2011 GONZALEZ BRISA Harris [facility] Modalities Heat Hot Packs Modalities Heat Hot Packs 82208 2011 NATALIIA GUERIN [facility] Physical Therapy Neuromuscular Re-education Physical Therapy Neuromuscular Re-education 48263 2011 NATALIIA GUERIN [facility] Physical Therapy: ___ Se ion Segments, 15 Minutes Each Physical Therapy: ___ Session Segments, 15 Minutes Each 20231 2011 NATALIIA GUERIN Modalities Heat Hot Packs Modalities Heat Hot Packs 89972 2011 MARCIAL, LUIS [facility] Physical Therapy: ___ Se ion Segments, 15 Minutes Each Physical Therapy: ___ Session Segments, 15 Minutes Each 29742 2011 MARCIAL, LUIS [facility] Physical Therapy Neuromuscular Re-education Physical Therapy Neuromuscular Re-education 72839 2011 MARCIAL, LUIS [facility] Modalities Heat Hot Packs Modalities Heat Hot Packs 47546 2010 MARCIAL, LUIS [facility] Physical Therapy Neuromuscular Re-education Physical Therapy Neuromuscular Re-education 24652 2010 MARCIAL, LUIS [facility] Physical Therapy: ___ Se ion Segments, 15 Minutes Each Physical Therapy: ___ Session Segments, 15 Minutes Each 11337 2010 MARCIAL, LUIS [facility] Physical Medicine Physical Therapy Re-Evaluation Physical Medicine Physical Therapy Re-Evaluation 91633 2010 SUMIT ROSEN E [facility] Physical Therapy Neuromuscular Re-education Physical Therapy Neuromuscular Re-education 14012 2010 MARCIAL, LUIS DoD Modalities Heat Hot Packs Modalities Heat Hot Packs 03171 2010 MARCIAL, LUIS [facility] Physical Therapy: ___ Se ion Segments, 15 Minutes Each Physical Therapy: ___ Session Segments, 15 Minutes Each 62654 2010 MARCIAL, LUIS DoD Modalities Heat Hot Packs Modalities Heat Hot Packs 39353 2010 MARCIAL, LUIS DoD Physical Therapy: ___ Se ion Segments, 15 Minutes Each Physical Therapy: ___ Session Segments, 15 Minutes Each 27322 2010 MARCIAL, LUIS DoD Physical Therapy Neuromuscular Re-education Physical Therapy Neuromuscular Re-education 65643 2010 MARCIAL, LUIS DoD Physical Therapy Neuromuscular Re-education Physical Therapy Neuromuscular Re-education 90045 2010 MARCIAL, LUIS DoD Modalities Heat Hot Packs Modalities Heat Hot Packs 73099 2010 MARCIAL, LUIS DoD Physical Therapy: ___ Se ion Segments, 15 Minutes Each Physical Therapy: ___ Session Segments, 15 Minutes Each 65426 2010 MARCIAL, LUIS DoD Modalities Heat Hot Packs Modalities Heat Hot Packs 31988 2010 BRISA GONZALEZ [facility] Physical Therapy Neuromuscular Re-education Physical Therapy Neuromuscular Re-education 59136 2010 BRISA GONZALEZ [facility] Physical Therapy: ___ Se ion Segments, 15 Minutes Each Physical Therapy: ___ Session Segments, 15 Minutes Each 41153 2010 BRISA GONZALEZ Pulmonary Function Tests Pulmonary Function Tests 04400 2010 LEIGH TAYLOR [facility] Physical Medicine Physical Therapy Re-Evaluation Physical Medicine Physical Therapy Re-Evaluation 93443 2010 SUMIT ROSEN DoD Modalities Heat Hot Packs Modalities Heat Hot Packs 76929 2010 BRISA GONZALEZ [facility] Modalities Ultrasound Modalities Ultrasound 53250 2010 BRISA GONZALEZ Exercises A isted Exercises For ROM Exercises Assisted Exercises For ROM 63009 2010 BRISA GONZALEZ DoD Modalities Heat Hot Packs Modalities Heat Hot Packs 03629 2010 MARCIAL, LUIS DoD Modalities Ultrasound Modalities Ultrasound 43084 2010 MARCIAL, LUIS DoD Exercises A isted Exercises For ROM Exercises Assisted Exercises For ROM 90397 2010 MARCIAL, LUIS DoD Modalities Ultrasound Modalities Ultrasound 01601 2010 GUERINNATALIIA A DoD Modalities Heat Hot Packs Modalities Heat Hot Packs 59098 2010 NATALIIA GUERIN A DoD Exercises A isted Exercises For ROM Exercises Assisted Exercises For ROM 31583 2010 GUERIN NATALIIA A DoD Modalities Heat Hot Packs Modalities Heat Hot Packs 95976 2010 MARCIAL, LUIS DoD Modalities Ultrasound Modalities Ultrasound 09266 2010 MARCIAL, LUIS DoD Exercises A isted Exercises For ROM Exercises Assisted Exercises For ROM 31749 2010 MARCIAL, LUIS DoD Physical Medicine Physical Therapy Evaluation Physical Medicine Physical Therapy Evaluation 37476 2010 SILAS SUMIT Brenda Onofre Pulmonary Function Tests Pulmonary Function Tests 74287 2009 STERLING GEE Threshold Audiogram (Pure Tone) Threshold Audiogram (Pure Tone) 26149 2009 STERLING GEE DoD Audiogram (Screening) Audiogram (Screening) 75011 2009 RAMILA DAMIAN Non-Physician Phone Call To Patient/Provider Brief (5-10min) Non-Physician Phone Call To Patient/Provider Brief (5-10min) 03408 2009 JONEL BUSBY Culture, bacterial, urine; quantitative, sensitivity study 2008 BRISA AHUJA strep swab done [facility] Threshold Audiogram (Pure Tone) Threshold Audiogram (Pure Tone) 38042 2008 JUANJO CLEARY Threshold Audiogram (Pure Tone) Threshold Audiogram (Pure Tone) 37252 2007 MARYANNE SANTOS Services Provided On An Emergency Basis In The Office 2006 JAIME LAIRD Services Provided On An Emergency Basis In The Office 2006 LATIA CARVAJAL Ophthalmological New Patient Start Intermediate Level Care Ophthalmological New Patient Start Intermediate Level Care 95640 2006 LATIA CARVAJAL Threshold Audiogram (Pure Tone) Threshold Audiogram (Pure Tone) 39986 2006 MARYANNE SANTOS Threshold Audiogram (Pure Tone) Threshold Audiogram (Pure Tone) 79252 KEKE SNYDER [facility] No data available for this section Ambulato ry Pharmacy Social History Combined list of available smoking, tobacco, and other social history from 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 Social History Type Response Date Comment Sourc e Tobacco smoking status NHIS [place]-TOBACCO USE FORMER CIGARETTES 03/02/2024 [facility] History of tobacco use ND-TOBACCO NEVER USED OTHER TYPE 03/02/2024 [facility] This section is an empty social [...] Plan No data available for this section 06/27/2024 Ambulatory Pharmacy Plan of Care List of future care activities from Department of Veterans Affairs facilities. Additional future care activities may be listed in the Assessment and Plan section. Date/Time Care Activity Care Activity Detail Facili ty 06/26/2024 AMBULATORY - MEDICINE AMBULATORY - MEDICI NE [facility] Functional Status Combined list of recent functional and cognitive assessments recorded at Department of Defense and Veterans Affairs ([place] Functional [place] Measurement (FIM) Scale: 1 = Total Assistance (Subject = 0% +), 2 = Maximal Assistance (Subject = 25% +), 3 = Moderate Assistance (Subject = 50% +), 4 = Minimal Assistance (Subject = 75% +), 5 = Supervision, 6 = Modified Harney (Device), 7 = Complete Harney (Timely, Safely). Assessment Date/Time Source Assessment Type Assessment Skill Assessment Score Assessment Details No data available for this section
--- OUTSIDE RECORDS SUMMARY | 2024-06-27 13:12 | XMS_ITS | Clinical Summary ---
Author Organization [facility] Address [address] [place] [address] Phone Care Team Providers Care Billboard Installer Name Role Phone KbjoneElmo NP Primary Care Provider [phone] Allergies No known active allergies Medications syringe with needle, safety 1 mL 25 gauge x 5/8 syringe BD Disp Clare 25G X 5/8 Misc USE DIRECTED WEEKLY [...] and strain of hip and thigh Sacroiliitis ([facility] V24) 08/26/2021 Overview (03/14/2024): Last Assessment & [...] questions answered. Stage 3a chronic kidney disease ([facility] V24, CM S/[facility] V28) 03/02/2021 Essential hypertension 02/25/2021 Renal stone 02/25/2021 Other hammer toe(s) (acquired), right foot 02/13 Resolved Problems Problem Noted Date Diagnosed Date Resolved Date Dermatitis 09/21/2023 03/20/2024 Gastroenteritis 09/21/2023 03/20/2024 Encounters Date Type Department Care Team Description 04/28/2024 7:05 AM EDT - 04/28/2024 11:59 PM EDT Hospital Encounter [facility] Interventional Radiology [address] [place] [address] Sacroiliitis ([facility] V24) Discharge Disposition: Home or Self Care 04/10/[address] [facility] [address] [facility] [address] [place] [address] Malena Bergman MA Appointment (04/07/24 - Per Sue - called patient to schedule SI Joint injection but patient decided to put everything on hold for now due to a possible hernia surgery that he's going to have. ) 03/30/[address] [facility] [address] [facility] [address] [place] [address] Mally John PA from Last [...] RIGHT Routine 04/28/2024 9:07 AM EDT Sacroiliitis ([facility] V24) from Last 3 Months Results * [...] Signed Date: 04/28/2024 10:20 ET Workstation ID: [id number] Transcribed By: Self Edit Transcribed Date: 04/28/2024 [...] mixed with 2 mL of bupivacaine Scanner: [employer] 16 slice VCT Dose reduction technique: ASIR [...] mixed with 2 mL of bupivacaine Scanner: [employer] speed 16 slice VCT Dose reduction technique: [...] Signed Date: 04/28/2024 10:20 ET Workstation ID: [id number] Transcribed By: Self Edit Transcribed Date: 04/28/2024 10:17 ET Mally QUIÑONEZ IMG IR PROCEDURES Final Re sult from Last 3 Months Insurance [employer] Care Teams Billboard Installer Relationship Specialty Start Date End Date Elmo Moreno NP [address] [facility] AQUILES Cai PCP - General 05/15/22
--- OUTSIDE RECORDS SUMMARY | 2024-06-27 13:12 | XMS_ITS | Clinical Summary ---
Author Organization [facility] Facility Address [address] [place] [id number] Care Team Providers Care Replanting Machine Crew Name Role Phone Unavailable Primary Care Provider [...]
[2024-08-07 09:27] VITALS: BMI 34.9
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
[2024-08-09] VITALS (8 sets, daily range): BP systolic 110–180; BP diastolic 54–96; PULSE 75–92; RESP 16–20; TEMP 36.3–36.9; O2SAT 95–98; BMI 34.2
--- NOTE | 2024-08-09 06:31 | ECG_ITS ---
Test Reason : EMMANUEL, CKD Blood Pressure : */* mmHG Vent. Rate : 79 BPM Atrial Rate : 79 BPM P-R Int : 190 ms QRS Dur : 108 ms QT Int : 398 ms P-R-T Axes : 38 -2 1 degrees QTcB Int : 456 ms Normal sinus rhythm Cannot exclude old inferior or septal infarct but can also be related to body habitus Abnormal ECG No previous ECGs available Referred By: Ely Campuzano Electronically Signed By: ORIN GRANADOS
[2024-08-09] MEDS: Lactated Ringers 1,000 ML 100 ML IVCONT (07:01)
--- NOTE | 2024-08-09 07:20 | MHC.SHP ---
Pre-Procedural Eval Section A - 24 Hr Update-Section A only Date of Service: 08/09/24 The patient is an INPATIENT: No Changes since office visit: No Cold of Flu in the past 2 weeks, No New Medical Problems, No Changes in Medication and No Patient answered all questions The patient has been examined within 24 hours of the surgical procedure. The History & Physical has been completed within 30 days and I have reviewed it.: Yes Section B - Complete if H&P > 30 days Chief Complaint: Superior glenoid labrum lesion of unspecified Allergies: Allergies Allergy/AdvReac Type Severity Reaction Status Date / Time No Known Allergies (No Known Allergy Verified 08/01/24 14:47 Allergies*) Plan I have reviewed the history and physical and performed a pertinent physical examination on my patient. No changes have occurred unless specified. Time Spent With Patient Time: Total time managing care of this patient today ____ minutes.
[2024-08-09 07:24] LABS: Hematocrit 44.9 % (42.0-52.0); Mean Corpuscular HGB Conc 35.6 g/dl (31.0-36.0); Mean Corpuscular Hemoglobin 24.6 pg (27.0-33.0); Mean Corpuscular Volume 69.1 fL (80.0-98.0); Mean Platelet Volume 9.4 fL (9.4-12.4); Platelet Count 178 X10*3/uL (160-400); Red Cell Distribution Width 15.1 % (11.0-16.0); White Blood Count 6.2 X10*3/uL (4.8-10.8)
[2024-08-09 07:37] LABS: Anion Gap 14 (12-20); Blood Urea Nitrogen 27 mg/dL (9-16); Calcium 9.3 mg/dL (8.4-10.2); Carbon Dioxide 25 mmol/L (22-29); Chloride 104 mmol/L (96-108); Creatinine Clr Calc Pharmacy 72.3; Estimated Glomerular Filt Rate 48; Glucose Fasting 106 mg/dL (60-99); Potassium 3.5 mmol/L (3.3-5.1); Sodium 139 mmol/L (135-145)
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
[2024-08-09] MEDS: ceFAZolin Sodium/Dextrose,Iso 2 GM/50 ML PIGGYBACK IV (08:30)
[2024-08-09] MEDS: Acetaminophen 1,000 MG/100 ML PIGGYBACK 400 MG IV (08:45)
--- NOTE | 2024-08-09 10:28 | P.BOP_ITS ---
Brief Operative Note Date of Service: 08/09/24 Pre-op diagnosis: left SLAP tear Post-op diagnosis: other (1) Left SLAP tear 2) left RTC tear) Procedure: Left shoulder RTC repair with SAD and sub pectoral biceps tenodesis Implants: S&N double loaded helacoil x 1; knotless Helacoil x 2, lg Regeneten collogen bio-inductive patch; Arthrex biceps endobutton Surgeon: Regis Monson MD Anesthesia: regional Was an Recreation Facilities Supervisor used for this Procedure?: Yes Recreation Facilities Supervisor: Sharmila Jaffe Estimated blood loss (mL): 50 IV fluids (mL): 1,000 Pathology: none sent Condition: stable Disposition: PACU
--- NOTE | 2024-08-09 12:16 | HO.INF ---
Patient states he has prescriptions at home
--- NOTE | 2024-08-11 10:56 | W.PM.OPN ---
Operative Note Operative Note Date of Service: 08/09/24 Narrative: Date of Service: 08/09/24 Pre-op diagnosis: left SLAP tear Post-op diagnosis: other (1) Left SLAP tear 2) left RTC tear) Procedure: Left shoulder RTC repair with SAD and sub pectoral biceps tenodesis Implants: S&N double loaded helacoil x 1; knotless Helacoil x 2, lg Regeneten collogen bio-inductive patch; Arthrex biceps endobutton Surgeon: Regis Monson MD Anesthesia: regional Was an Sustainability Project Manager used for this Procedure?: Yes Sustainability Project Manager: Sharmila Jaffe Estimated blood loss (mL): 50 IV fluids (mL): 1,000 Pathology: none sent Condition: stable Disposition: PACU Procedure in detail: Patient was brought to the operating room and placed the the beach chair position. All bony prominences were well padded and the limb was prepped and draped in standard sterile fashion. A time out was called to identify proper site, proper procedure and proper surgeon. IV antibiotics per weight were administered. I began by making a posterolateral stab incision with a 15 blade. A blunt trochar was placed into the glenohumeral joint and I insufflated the joint with saline and a 30 degree arthroscope was placed. I established an outside- in anterior portal just distal to the biceps tendon. I then began my inspection of the glenohumeral joint. There was a degenerative SLAP tear at the biceps anchor.. There were minimal cartilage changes at the inferior glenoid without humeral head changes. There was a high-grade partial-thickness undersurface RTC tear involving the infraspinatus. The subcapularis was intact. I debrided the loose cartilage of the glenoid and the degenerative labral tearing and performed a biceps tenotomy after tagging the biceps with a loop suture. I then removed the trochar and entered the subacromial space. A direct lateral portal was then established and I performed a bursectomy. The cuff was then examined. There was low grade partial tearing of the supraspinatus. There was high-grade partial tearing of the infraspinatus. I used a shaver and easily developed a full-thickness tear of the infraspinatus at its border with the supraspinatus. This was crescentic full-thickness tear. I placed one medial row double loaded anchor after using a tap just adjacent to the articular cartilage and then brought the suture limbs (4) through the medial cuff. I added a luggage handle looped tight suture to the anterior and posterior aspect of the tear. I then debrided the bare area down to bleeding bone and, using a cross bridge configuration, brought 3 limbs to each of two lateral 5.0 anchors. This re-approximated the cuff anatomy anatomically. Because there was partial tearing of the supraspinatus I elected to place a large Regeneten collagen bio inductive patch over the cuff. An additional lateral portal was established under direct visualization and the patch was inserted through the anterior lateral portal. This was held in place with medial pink soft tissue jeannie and then 2 lateral peek bone jeannie. I had excellent coverage of the entirety of the cuff. Prior to this a 5 mm anterior subacromial decompression was forearm performed. Once I was satisfied with the repair final images were captured and I removed all instrumentation. Portals were closed with nylon. At this point a oblique incision was made over the axillary fold at the level of the proximal humerus. I dissected down to the pectoral fascia. Blunt dissection was used to exploit the distal aspect of the deltopectoral interval I then palpated the biceps tendon and using a right angle clamp retrieve the tendon with the attached suture from the proximal humerus. I then cleaned up the ends and whip stitched a FiberWire to this and then loaded the FiberWire into a Arthrex distal biceps endo-button. I then palpated the superior edge of the pectoralis and using a Bbeepin approximately 1-2 cm distal to the superior edge of the pectoralis muscle I drilled bicortically. I then measured the tendon and reamed the near cortex with a 6.5 Reamer. I then passed the endo button bicortically and flipped the button and pulled the biceps tendon into the humeral shaft. I had a good tension and felt the tendon Rodriguez to the bone. I then not of the FiberWire and took the shoulder through full range of motion. I was satisfied with the stability of the tenodesis. The suture was cut and the wound was irrigated and then closed with absorbable suture and skin glue. Patient was placed into sterile dressings and a abduction sling. He was extubated and brought to the recovery room in stable condition. There were no known complications.
== END 2024-08-09 12:17 | disposition home or self-care (01) ==
PROVIDERS: Nurse Practitioner; PCP Nurse Practitioner Family; Visit Provider Orthopaedic Surgery
PROC: (CPT 29805; principal; 2024-08-09 08:30)
DX: M75.112 Incomplete rotator cuff tear or rupture of left shoulder, not specified as traumatic (principal); S43.432A Superior glenoid labrum lesion of left shoulder, initial encounter; I12.9 Hypertensive chronic kidney disease with stage 1 through stage 4 chronic kidney disease, or unspecified chronic kidney disease; N18.9 Chronic kidney disease, unspecified; M48.061 Spinal stenosis, lumbar region without neurogenic claudication; K21.9 Gastro-esophageal reflux disease without esophagitis; G47.33 Obstructive sleep apnea (adult) (pediatric); F41.8 Other specified anxiety disorders; F43.10 Post-traumatic stress disorder, unspecified; Z98.890 Other specified postprocedural states; Z87.891 Personal history of nicotine dependence; X58.XXXA Exposure to other specified factors, initial encounter; Y93.9 Activity, unspecified; Y92.9 Unspecified place or not applicable; Y99.9 Unspecified external cause status
CPT/HCPCS: 29827; 29822; 29826; 36415; 80048; 85027; 93005; C1713; C1763; J0131; J0171; J0665; J0690; J1100; J2003; J2250; J2371; J2405; J2704; J3010

== ENCOUNTER → 2024-08-09 06:19 | Outpatient (BNV) | payer OTHER, SELFPAY | PROVIDERS: PCP Nurse Practitioner Family; Visit Provider Orthopaedic Surgery | DX: S46.012A Strain of muscle(s) and tendon(s) of the rotator cuff of left shoulder, initial encounter (principal); S43.432A Superior glenoid labrum lesion of left shoulder, initial encounter | CPT/HCPCS: 29827; 29828 ==

== ENCOUNTER → 2024-08-09 06:31 | Outpatient (BNV) | payer OTHER, SELFPAY | PROVIDERS: PCP Nurse Practitioner Family; Visit Provider Internal Medicine | DX: R94.31 Abnormal electrocardiogram [ECG] [EKG] (principal); G47.33 Obstructive sleep apnea (adult) (pediatric); N18.9 Chronic kidney disease, unspecified | CPT/HCPCS: 93010 ==

== ENCOUNTER 2024-08-17 09:07 | Outpatient (AMB) | payer OTHER, SELFPAY ==
--- OUTSIDE RECORDS SUMMARY | 2024-08-17 09:25 | XMS_ITS | Clinical Summary ---
Author Organization [facility] Facility Address [address] [place] [id number] Care Team Providers Care Care Partner Name Role Phone Unavailable Primary Care Provider [...]
--- OUTSIDE RECORDS SUMMARY | 2024-08-17 09:25 | XMS_ITS | Patient Health Record ---
[facility] Address [address] [place] [address] Care Team Providers Care Helpdesk Technician Name Role Phone Mildred Singh MD Primary Care Provider Bowen Arellano Unavailable [phone] Reason For Referral No Information Medications Medication SIG (Take, Route, Frequency, Duration) Notes Start Date End Date Status Walking Boot/Pneumatic As directed Wear Daily; Duration: Until further notice Active Night Splint AFO - L1930 as directed 01/19/2018 Active Work Note . . . patient is total ly disabled from work until 07/04/18 with limited standing/walking; NO PT TEST; Can not wear boots Active Work Note-Appointment . . . Pt had a [facility] appointment today; Duration: . Active Work Note . . . patient is disab led from work until further notice Not-Taking Physical Therapy . . . 2-3x/week; Durat ion: 3-4 weeks 01/19/2018 Not-Taking Physical Therapy . . . 2-3x/week; Durat ion: 3-4 weeks 05/31/2018 Active Social History Tobacco Use: [...] X ray : Foot, right 3V 10/14/2016 [id number] Destruction, -10/14/2016 [id number]-Svgm Destruction, -12/21/2016 [id number]-Lsrt Destruction, 02-2801/18/2017 [id number] TENDON SHEATH/LIGAMENT 1 03/05/2017 Insurance Providers Payer Name Payer Address Payer Phone Subscriber Number Group Number Insured Name Patient Relationship to Insured Coverage Start Date Coverage End Date [facility] [address] [place] [address] [id number] Gerard Schultz Self - patient is the insured Medical (General) History Medical History History ICD Code Measles Chicken pox Surgical History Surgery Date(Month/Year) Kidney stones removed - Rohan Faye Ligaments and tendons striped away from right hand pinky finger 10/2016 Hospitalization History Reason Date(Month/Year) [facility] , Right pinky finger 10/2016
--- OUTSIDE RECORDS SUMMARY | 2024-08-17 09:25 | XMS_ITS | Clinical Summary ---
Author Organization [facility] Address [address] [place] [address] Phone Care Team Providers Care Service Shop Foreman Name Role Phone KbjoneElmo NP Primary Care Provider Allergies No known active allergies Medications syringe with needle, safety 1 mL 25 gauge x 5/8 syringe BD Disp [place] 25G X 5/8 Misc USE DIRECTED WEEKLY [...] and strain of hip and thigh Sacroiliitis ([facility] V24) 08/26/2021 Overview (03/14/2024): Last Assessment & [...] morning 8/10, during the day while working -05/25, with rest and evening 10 or higher. [...] questions answered. Stage 3a chronic kidney disease ([facility] V24, [facility] V28) 03/02/2021 Essential hypertension 02/25/2021 Renal stone 02/25/2021 Other hammer toe(s) (acquired), right foot 02/13 Resolved Problems Problem Noted Date Diagnosed Date Resolved Date Dermatitis 09/21/2023 03/20/2024 Gastroenteritis 09/21/2023 03/20/2024 Immunizations Name Administration Dates Next Due Anthrax [...] 93 04/28/2024 9:30 AM EDT Temperature 37.6 C (99.6 F) 04/28/2024 7:33 AM EDT Respiratory Rate 16 04/28/2024 9:27 AM EDT [...] patient's age to complete this topic Insurance [facility] Care Teams Service Shop Foreman Relationship Specialty Start Date End Date Elmo Moreno NP [address] [facility] [place] PCP - General 05/15/22
--- OUTSIDE RECORDS SUMMARY | 2024-08-17 09:25 | XMS_ITS | Clinical Summary ---
Author Organization [facility] Address [address] [place] [address] Care Team Providers Care Fishing Manager Name Role Phone Elmo Moreno Primary Care Provider [phone] Allergies No known active allergies Medications Medication [...] 79 03/18/2020 3:00 PM EST Temperature 36 C (96.8 F) 03/18/2020 2:04 PM EST Respiratory Rate 16 [...] Colon Cancer Screening (Colonoscopy) 07/18/2023 Influenza Vaccine (Season Ended) 2024 Pneumococcal Vaccine Aged Out No long er eligible based on patient's age to complete this topic RSV Ped < 20 months Aged Out No longe r eligible based on patient's age to complete this topic Advance Directives For more information, please contact: [phone] Latest Code Status on File Code Status Date Activated Date Inactivated Comments Full Code 03/18/2020 12:11 PM 03/18/2020 9:28 PM This c ode status was ascertained in the following way: discussion with patient . Care Teams Fishing Manager Relationship Specialty Start Date End Date Elmo Moreno: [id number] [address] [facility] [place] [id number] PCP - General Family Medicine 03/07/20
--- NOTE | 2024-08-17 09:31 | MHC.OFFVIS ---
Intake Visit Reasons: PO LT Shld 08/09/24 NE Intake Note: Gerard is a 44 year old male who presents today for a post operative visit after undergoing a left shoulder on 08/09/24 NE. Patient reports having a burning sensation around his incision area. He has concerns of discoloration in his in bicep area after surgery, stating unsure if this was bruising. Allergies No Known Allergies (No Known Allergies*) Allergy (Verified 08/17/24 09:34) Medication List - Last Reconciled 08/17/24 by Radha Mendez PA-C hydrochlorothiazide 25 mg PO DAILY lorazepam 0.5 mg PO DAILY PRN 30 days losartan 100 mg PO DAILY needle (disp) 22 G As directed needle (disp) 25 gauge (BD Regular Bevel [place]) As directed weekly - for testosterone subcutaneous injection omeprazole 20 mg PO DAILY syringe (disposable) (BD Luer-Christiano Syringe) Testosterone injection weekly testosterone cypionate (Depo-Testosterone) 100 mg (0.5 mL) subcut QWEEK 4 weeks HPI HPI PO LT Shld 08/09/24 NE: Details: 44 year old gentleman presents to the office today for us postop left shoulder rotator cuff repair with biceps tenodesis on 08/09/[address] Monson. Patient is doing well. He has been having some difficulty tolerating the medication due to nausea. [facility] Medical History TMJ (temporomandibular joint disorder) Tubular adenoma of colon GERD (gastroesophageal reflux disease) Anxiety with depression PTSD (post-traumatic stress disorder) Lumbar stenosis HTN (hypertension) Sleep apnea Hypogonadism in male BPH (benign prostatic hyperplasia) Renal calculi CKD (chronic kidney disease) Right foot pain Surgical History History of esophagogastroduodenoscopy (EGD) H/O colonoscopy Incarcerated umbilical hernia (04/14/24) Status post right rotator cuff repair Status post right foot surgery Family History Father No problems noted. Mother No problems noted. 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 Mild ecchymosis. Sensation intact. Results Reviewed Results Reviewed: Brief Operative Note Date of Service: 08/09/24 Pre-op diagnosis: left SLAP tear Post-op diagnosis: other (1) Left SLAP tear 2) left RTC tear) Procedure: Left shoulder RTC repair with SAD and sub pectoral biceps tenodesis Implants: S&N double loaded helacoil x 1; knotless Helacoil x 2, lg Regeneten collogen bio-inductive patch; Arthrex biceps endobutton Surgeon: Regis Monson MD Assessment & Plan Assessment & Plan (1) Glenoid labrum tear: Code(s): S43.439A - Superior glenoid labrum lesion of unspecified shoulder, initial encounter Category: Medical (2) Torn rotator cuff: Code(s): M75.100 - Unspecified rotator cuff tear or rupture of unspecified shoulder, not specified as traumatic Category: Medical Plan Sutures removed today Steri-Strips applied. I encouraged him to keep the incision for the proximal biceps tendon clean and dry as there is a higher risk of infection given cross contamination from the armpit. He will continue with the sling for the next 6 weeks he can remove the sling for hygiene and exercises. He was given an order for physical therapy. He has [facility] therefore [facility] [place] [facility]. I did give him a printout of the rotator cuff and biceps tenodesis protocols which they should follow. If there is any questions they should call us. He will see us back in [address] Monson, sooner if needed. He was given a prescription for Vicodin as the Percocet was given him severe nausea. Orders: Orders PT Evaluation and Treatment Today M75.100 - Unspecified rotator cuff tear or rupture of unspecified shoulder, not specified as traumatic, S43.439A - Superior glenoid labrum lesion of unspecified shoulder, initial encounter Medications: New hydrocodone-acetaminophen 5-325 mg Partial Fill upon patient request. 1 tab PO Q6H PRN 28 tabs 0RF pain 7 days Coding Level of Care Code Global (00024) Diagnoses Glenoid labrum tear S43.439A Torn rotator cuff M75.100
== END 2024-08-17 10:09 | disposition home or self-care (01) ==
LOC: HO.HOS 09:08
PROVIDERS: PCP Nurse Practitioner Family; Visit Provider Physician Assistant
DX: S43.432A Superior glenoid labrum lesion of left shoulder, initial encounter (principal); M75.102 Unspecified rotator cuff tear or rupture of left shoulder, not specified as traumatic
CPT/HCPCS: 99024

== ENCOUNTER → 2024-08-17 09:07 | Outpatient (BNVA) | payer OTHER, SELFPAY | PROVIDERS: PCP Nurse Practitioner Family; Visit Provider Physician Assistant | DX: S43.432A Superior glenoid labrum lesion of left shoulder, initial encounter (principal); M75.102 Unspecified rotator cuff tear or rupture of left shoulder, not specified as traumatic; Z98.890 Other specified postprocedural states | CPT/HCPCS: 99212 ==

== ENCOUNTER 2024-09-11 10:55 | Outpatient (AMB) | payer OTHER, SELFPAY ==
[2024-09-11 10:57] VITALS: BMI 34.1
--- NOTE | 2024-09-11 10:57 | A.OFFVIS_ITS ---
Vital Signs 09/11/24 10:57 Height 5 ft 10 in Weight 238 lb BMI 34.1 Intake Visit Reasons: PO LT Shld 08/09/24 NE f/u Intake Note: Gerard is a 44 year old right hand dominant male who presents today for a post operative appointment s/p Left shoulder RTC repair with SAD and sub pectoral biceps tenodesis 08/09/24. [facility]. Patient reports ongoing pain all around shoulder. He states about a week ago, he was getting out of bed and felt dazed and fainted, falling on his left shoulder causing more pain. Has attended physical therapy, but yet to start strength exercises. Allergies No Known Allergies (No Known Allergies*) Allergy (Verified 09/11/24 11:04) HPI HPI PO LT Shld 08/09/24 NE f/u: Details: Gerard is a 44 year old right hand dominant male who presents today for a post operative appointment s/p Left shoulder RTC repair with SAD and sub pectoral biceps tenodesis 08/09/24. He is doing [facility]. Patient reports ongoing pain all around shoulder. He states about a week ago, he was getting out of bed and felt dazed and fainted, falling on his left shoulder causing more pain. Has attended physical therapy, but yet to start strength exercises. [facility] Medical History TMJ (temporomandibular joint disorder) Tubular adenoma of colon GERD (gastroesophageal reflux disease) Anxiety with depression PTSD (post-traumatic stress disorder) Lumbar stenosis HTN (hypertension) Sleep apnea Hypogonadism in male BPH (benign prostatic hyperplasia) Renal calculi CKD (chronic kidney disease) Right foot pain Surgical History History of esophagogastroduodenoscopy (EGD) H/O colonoscopy Incarcerated umbilical hernia (04/14/24) Status post right rotator cuff repair Status post right foot surgery Family History Father No problems noted. Mother No problems noted. 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 Passive abduction to 90 with minimal pain. Assessment & Plan Assessment & Plan (1) S/P left rotator cuff repair: Code(s): Z98.890 - Other specified postprocedural states Category: Surgical Plan: 6 weeks s/p left RTC repair with sub pectoral tenodesis Continue PT Biceps tenodesis protocol with RTC tear f/u 6 weeks. Coding Level of Care Code Global (03356) Diagnoses S/P left rotator cuff repair Z98.890
--- OUTSIDE RECORDS SUMMARY | 2024-09-11 12:15 | XMS_ITS | Clinical Summary ---
Author Organization [facility] Address [address] [place] [address] Care Team Providers Care Director Of Golf Name Role Phone Elmo Moreno Primary Care Provider [phone] Allergies No known active allergies Medications Medication [...] Cancer Screening (Colonoscopy) 07/18/2023 Influenza Vaccine (#1) 2024 Pneumococcal Vaccine Aged Out No long er eligible based on patient's age to complete this topic RSV Ped < 20 months Aged Out No longe r eligible based on patient's age to complete this topic Advance Directives For more information, please contact: [phone] Latest Code Status on File Code Status Date Activated Date Inactivated Comments Full Code 03/18/2020 12:11 PM 03/18/2020 9:28 PM This c ode status was ascertained in the following way: discussion with patient . Care Teams Director Of Golf Relationship Specialty Start Date End Date Elmo Moreno: [phone] [address] [facility] [place] [address] PCP - General Family Medicine 03/07/20
--- OUTSIDE RECORDS SUMMARY | 2024-09-11 12:15 | XMS_ITS | Clinical Summary ---
Author Organization [facility] Address [address] [place] [address] Care Team Providers Care Sheet Metal Assembler Name Role Phone Unavailable Primary Care Provider [...] of 2 - PCV) 1997 Influenza Vaccine (#1) 2024 Insurance
--- OUTSIDE RECORDS SUMMARY | 2024-09-11 12:15 | XMS_ITS | Clinical Summary ---
Author Organization [facility] Address [address] [place] [address] Phone Care Team Providers Care Echo Vascular Technologist Name Role Phone KbjoneElmo NP Primary Care Provider Allergies No known active allergies Medications syringe with needle, safety 1 mL 25 gauge x 5/8 syringe BD Disp [place] 25G X 5/8 Misc USE DIRECTED WEEKLY [...] and strain of hip and thigh Sacroiliitis ([facility] V24) 08/26/2021 Overview (03/14/2024): Last Assessment & [...] questions answered. Stage 3a chronic kidney disease ([facility] V24, [facility] S/[facility] V28) 03/02/2021 Essential hypertension 02/25/2021 Renal stone [...] Panel) 01/17/2022 Colorectal Cancer Screening: Colonoscopy 01/17/2022 HIV Screening 01/17/2022 Hepatitis C Screening 01/17/2022 Social Influencers of Health Screening 01/17/2022 Hypertension/CHF/CAD Annual BMP Blood Test 11/29/2023 Depression Screening 02/16/2024 Influenza Vaccine (#1) 2024 3, 12/21/2021, 01/18/2021, Additional history exists DTaP,Tdap,and Td [...] and At-Risk Patients (6 to 49 Years) Aged Out No longer eligible based on patient's age to complete this topic RSV Immunization Patients Under 20 months Aged Out No longer eligible based on patient's age to complete this topic Varicella Vaccines Aged Out No longer eligible based on patient's age to complete this topic Insurance [facility] Care Teams Echo Vascular Technologist Relationship Specialty Start Date End Date Elmo Moreno NP [address] [facility] [place] PCP - General 05/15/22
--- OUTSIDE RECORDS SUMMARY | 2024-09-11 12:15 | XMS_ITS | Patient Health Record ---
[facility] Address [address] [place] [address] Care Team Providers Care Emissions Engineer Name Role Phone Mildred Singh MD Primary Care Provider Bowen Arellano Unavailable [phone] Reason For Referral No Information Medications Medication [...] Note-Appointment . . . Pt [facility] appointment today; Duration: . Active Work Note [...] X ray : Foot, right 3V 10/14/2016 [id number] Destruction, -10/14/2016 74460-Jynj Destruction, -12/21/2016 54475-Qlyq Destruction, 02-2801/18/2017 [id number] TENDON SHEATH/LIGAMENT 1 03/05/2017 Insurance Providers Payer Name Payer Address Payer Phone Subscriber Number Group Number Insured Name Patient Relationship to Insured Coverage Start Date Coverage End Date [facility] [address] [place] [address] [id number] Gerard Schultz Self - patient is the insured Medical (General) History Medical History History ICD Code Measles Chicken pox Surgical History Surgery Date(Month/Year) Kidney stones removed - Rohan Faye Ligaments and tendons striped away from right hand pinky finger 10/2016 Hospitalization History Reason Date(Month/Year) [facility] , Right pinky finger 10/2016
== END 2024-09-11 11:31 | disposition home or self-care (01) ==
LOC: HO.HOS 10:56
PROVIDERS: PCP Nurse Practitioner Family; Referring Provider Orthopaedic Surgery; Visit Provider Orthopaedic Surgery
DX: Z98.890 Other specified postprocedural states (principal)
CPT/HCPCS: 99024

== ENCOUNTER → 2024-09-11 10:55 | Outpatient (BNVA) | payer OTHER, SELFPAY | PROVIDERS: PCP Nurse Practitioner Family; Visit Provider Orthopaedic Surgery | DX: M25.512 Pain in left shoulder (principal); Z98.890 Other specified postprocedural states | CPT/HCPCS: 99212 ==

== ENCOUNTER 2024-09-14 10:32 | Outpatient (REF) | payer OTHER, SELFPAY ==
--- OUTSIDE RECORDS SUMMARY | 2024-09-14 11:13 | XMS_ITS | Patient Health Record ---
Author [facility] Address [address] [place] [address] Care Team Providers Care Solution Design Engineer Name Role Phone Mildred Singh MD Primary Care Provider Bowen Arellano Unavailable [phone] Reason For Referral No Information Medications Medication [...] Note-Appointment . . . Pt had a [facility] appointment today; Duration: . Active Work Note [...] X ray : Foot, right 3V 10/14/2016 [id number] Destruction, -10/14/2016 77779-Bqzi Destruction, -12/21/2016 62653-Ljzy Destruction, 02-2801/18/2017 [id number] TENDON SHEATH/LIGAMENT 1 03/05/2017 Insurance Providers Payer Name Payer Address Payer Phone Subscriber Number Group Number Insured Name Patient Relationship to Insured Coverage Start Date Coverage End Date [facility] [address] [place] [address] [id number] Gerard Schultz Self - patient is the insured Medical (General) History Medical History History ICD Code Measles Chicken pox Surgical History Surgery Date(Month/Year) Kidney stones removed - Rohan Faye Ligaments and tendons striped away from right hand pinky finger 10/2016 Hospitalization History Reason Date(Month/Year) [facility] , Right pinky finger 10/2016
--- OUTSIDE RECORDS SUMMARY | 2024-09-14 11:13 | XMS_ITS | Clinical Summary ---
Author Organization [facility] Address [address] [place] [address] Phone Care Team Providers Care Gig Tender Name Role Phone KbjoneElmo NP Primary Care Provider Allergies No known active allergies Medications syringe with needle, safety 1 mL 25 gauge x 5/8 syringe BD Disp [place] 25G X 5/8 Misc USE DIRECTED WEEKLY [...] and strain of hip and thigh Sacroiliitis ([facility] V24) 08/26/2021 Overview (03/14/2024): Last Assessment & [...] questions answered. Stage 3a chronic kidney disease ([facility] V24, CM S/[facility] V28) 03/02/2021 Essential hypertension 02/25/2021 Renal stone [...] patient's age to complete this topic Insurance [facility] Care Teams Gig Tender Relationship Specialty Start Date End Date Elmo Moreno NP [address] [place] PCP - General 05/15/22
--- OUTSIDE RECORDS SUMMARY | 2024-09-14 11:13 | XMS_ITS | Clinical Summary ---
Author Organization [facility] Address [address] [place] [address] Care Team Providers Care Group Counselor Name Role Phone Elmo Moreno Primary Care Provider [phone] Allergies No known active allergies Medications Medication [...] Advance Directives For more information, please contact: [phone] Latest Code Status on File Code Status Date Activated Date Inactivated Comments Full Code 03/18/2020 12:11 PM 03/18/2020 9:28 PM This c ode status was ascertained in the following way: discussion with patient . Care Teams Group Counselor Relationship Specialty Start Date End Date Elmo Moreno: [phone] [address] [facility] [place] [address] PCP - General Family Medicine 03/07/20
--- OUTSIDE RECORDS SUMMARY | 2024-09-14 11:13 | XMS_ITS | Clinical Summary ---
Author Organization [facility] Address [address] [place] [address] Care Team Providers Care Forensic Structural Engineer Name Role Phone Unavailable Primary Care Provider [...]
[2024-09-14 13:23] LABS: Hematocrit 50.4 % (42.0-52.0); Hemoglobin 17.1 g/dl (14.0-18.0); Mean Corpuscular HGB Conc 33.9 g/dl (31.0-36.0); Mean Corpuscular Hemoglobin 25.5 pg (27.0-33.0); Mean Corpuscular Volume 75.2 fL (80.0-98.0); NRBC Abs Auto 0.000 X10*3/uL (0.0-0.012); NRBC Pct Auto 0.0 /100WBC (0.0-0.2); Platelet Count 200 X10*3/uL (160-400); Red Blood Count 6.70 X10*6/uL (4.60-5.80); White Blood Count 8.6 X10*3/uL (4.8-10.8)
[2024-09-14 14:05] LABS: Prostate Specific Antigen 0.90 ng/mL (<0.05-4.0)
== END 2024-09-14 10:33 | disposition home or self-care (01) ==
LOC: HO.HMGCLDS 10:32
PROVIDERS: PCP Nurse Practitioner Family; Visit Provider Urology
DX: E29.1 Testicular hypofunction (principal)
CPT/HCPCS: 36415; 84153; 84403; 85027

== ENCOUNTER 2024-09-29 08:59 | Outpatient (AMB) | payer OTHER, SELFPAY ==
--- NOTE | 2024-09-29 09:07 | MHC.OFFVIS ---
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 They are a patient of Dr Hernandez. They are seen in the office today for the following urologic conditions. - hypogonadism - erectile dysfunction Repeatedly high lab work Did have timing issues with medications Will refill meds and review in six-month Bladder ultrasound shows 50 g prostate which is mildly enlarged for age Minimal symptoms currently Kidneys no stones Hypogonadism: Low T in test in January 2019 Current therapy testosterone injections 0.5 cc/week - injection day Wednesday - lab work /Wednesday He presents today for further evaluation of complaints regarding hypogonadism. Initial symptoms include erectile dysfunction No decreased libido Yes change in mood/depression Yes in muscle size/strength Yes increased fatigue/malaise Yes increased abdominal fat No tender breasts/gynecomastia No hair loss No osteopenia No The onset of symptoms has been gradual. Associate conditions include obstructive sleep apnea No CAD No obesity No stress - financial, family, employment No heavy alcohol or illicit drug use No Laboratory results 02/02 T 107 05/04 330 T, 06/05 275, 10/05 T 330, 02/04 330, 06/08 365 50 0.65, 04/11 1800, 09/08 1700 Current therapy includes none. Therapeutic plan injectable testosterone Erectile dysfunction Partial response to 5 mg tadalafil daily Increased to 10 mg Prescription provided [facility] Medical History TMJ (temporomandibular joint disorder) Tubular adenoma of colon GERD (gastroesophageal reflux disease) Anxiety with depression PTSD (post-traumatic stress disorder) Lumbar stenosis HTN (hypertension) Sleep apnea Hypogonadism in male BPH (benign prostatic hyperplasia) Renal calculi CKD (chronic kidney disease) Right foot pain Surgical History History of esophagogastroduodenoscopy (EGD) H/O colonoscopy Incarcerated umbilical hernia (04/14/24) Status post right rotator cuff repair Status post right foot surgery Family History Father No problems noted. Mother No problems noted. 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 Cognitive needs: No Hearing needs: No Vision needs: No Review of Systems Const Denies chills and Denies fever(s) Card Reports no additional complaints and Denies syncope Resp Denies cough GI Denies abdominal pain and Denies heartburn Reports as per HPI and Denies change in libido Neuro Denies syncope Psych Denies change in libido Endo Denies change in libido Physical Exam Const General: cooperative, healthy appearing, comfortable and no acute distress Orientation/consciousness: patient oriented x3 HEENT Face and sinus: Yes normal facial exam Mouth: moist mucous membranes Neck Neck: Yes normal visual inspection, Yes full ROM and Yes trachea midline Chest Chest palpation & inspection: normal inspection of the chest Resp Effort & Inspection: normal respiratory effort, able to speak in complete sentences and no respiratory distress GI Inspection: Yes normal to inspection Back/Spine/Pelvis Cervical Spine: normal cervical lordosis Thoracic/Lumbar Spine: thoracic and lumbar spine normal to inspection Skin General skin exam: no rashes or lesions noted Neuro General: patient oriented x3, gait normal, tone normal and moves all extremities Extrem General: Yes normal to inspection and Yes capillary refill normal Assessment & Plan Assessment & Plan (1) Renal calculi: Code(s): N20.0 - Calculus of kidney Category: Medical (2) Erectile dysfunction due to arterial insufficiency: Code(s): N52.01 - Erectile dysfunction due to arterial insufficiency Category: Medical (3) Hypogonadism in male: Code(s): E29.1 - Testicular hypofunction Category: Medical Plan Six-month follow-up Orders: Orders Testosterone, Total 5 Months E29.1 - Testicular hypofunction Prostate Specific Antigen 5 Months E29.1 - Testicular hypofunction Hematocrit 5 Months E29.1 - Testicular hypofunction Medications: Refilled testosterone cypionate (Depo-Testosterone) 100 mg (0.5 mL) subcut QWEEK 2 mL 5RF 4 weeks E29.1 - Testicular hypofunction, [id number] Patient Instructions: This note is constructed using voice recognition software. While every effort has been made to ensure accuracy partition assembly machine operator errors may have been included. Imaging studies, laboratory and physical exam results were discussed and reviewed in detail. No major barriers to patient understanding were identified. An opportunity to ask questions regarding the treatment plan was provided. All questions were answered. The patient expressed understanding and agreement with the above treatment plan. The patient is aware they should contact our office by phone for worsening of their current condition or the appearance of new urologic symptoms. Compliance is encouraged with any medications and followup testing that is ordered. It is a privilege to participate in the urologic care of your patient. If you have any questions or concerns regarding treatment for the above conditions, or other urologic issues, please do not hesitate to contact me. The office telephone contact is [phone]. Sincerely, Dr Zach Chua MD, [facility] - Urology Compassionate Specialist Care for the Genitourinary System Coding Level of Care Code Est Pt Level 3 (13634) Complex EM visit Add On G2211 Diagnoses Renal calculi N20.0 Erectile dysfunction due to arterial insufficiency N52.01 Hypogonadism in male E29.1
--- OUTSIDE RECORDS SUMMARY | 2024-09-29 09:17 | XMS_ITS | Patient Health Record ---
[facility] Address [address] [place] [address] Care Team Providers Care Predator Control Trapper Name Role Phone Mildred Singh MD Primary Care Provider Bowen Arellano Unavailable [phone] Reason For Referral No Information Medications Medication [...] Note-Appointment . . . Pt had a [facility] appointment today; Duration: . Active Work [...] X ray : Foot, right 3V 10/14/2016 [id number] Destruction, -10/14/2016 [id number] Destruction, -12/21/2016 [id number] Destruction, 02-2801/18/2017 [id number] TENDON SHEATH/LIGAMENT 1 03/05/2017 Insurance Providers Payer Name Payer Address Payer Phone Subscriber Number Group Number Insured Name Patient Relationship to Insured Coverage Start Date Coverage End Date [facility] [address] [place] [address] [id number] Gerard Schultz Self - patient is the insured Medical (General) History Medical History History ICD Code Measles Chicken pox Surgical History Surgery Date(Month/Year) Kidney stones removed - Rohan Faye Ligaments and tendons striped away from right hand pinky finger 10/2016 Hospitalization History Reason Date(Month/Year) [facility] , Right pinky finger 10/2016
--- OUTSIDE RECORDS SUMMARY | 2024-09-29 09:17 | XMS_ITS | Clinical Summary ---
Author Organization [facility] Facility Address [address] [place] [address] Care Team Providers Care Parachute Rigger Name Role Phone Unavailable Primary Care Provider [...]
--- OUTSIDE RECORDS SUMMARY | 2024-09-29 09:17 | XMS_ITS | Encounter Summary ---
Author Organization [facility] Address [address] [place] [address] Care Team Providers Care Technology Specialist Name Role Phone Elmo Moreno NP Primary Care Provider [phone] Reason for Referral * Imaging (Routine) - Pending Review Specialty Diagnoses / Procedures Referred By Contac t Referred To Contact Radiology Diagnoses Sacroiliitis (CMS/HCC V24) Procedures IR Inj Anes/Steroid Nerve Sacroiliac Joint bilat Mally John PA [address] [place] [address], [address] [place] [address] Phone: tel: fax: [address] [address] Phone: tel: Referral ID Status Reason Start Date Expiration Date V isits Requested Visits Authorized [id number] Pending Review 09/26/2024 09/26/2025 1 1 Encounter Details Date Type Department Care Team ([facility] Contact Info) Description 09/25/2024 Telephone Neurosurgery [facility] [address] [facility] [address] [place] [address] Allison Euceda MA Social History Tobacco Use Types Packs/Day Years Used Date Smoking Tobacco: Never Smokeless Tobacco: Never Sex and Gender Information Value Date Recorded Sex Assigned at Male 04/27/2024 8:46 AM EDT Legal Sex Male 7:57 PM EST Gender Identity Male 04/27/2024 8:46 AM EDT Sexual Orientation Straight 04/28/2024 7: 04 AM EDT documented as of this encounter Progress Notes * Allison Euceda MA - 09/26/2024 4:19 PM EDT Pt wishes to use [employer] insurance, records/request sent to Sigifredo @ [facility] fax [phone] * KHANG Shaikh - 09/26/2024 9:03 AM EDT S/p right SI joint injections 04/28/24 at Radiology [facility]. Patient is calling requesting bilateral SI joint injections. See most recent office visit 03/20/2024. His last injection helped about 2.5 months. He would like to get another appointment scheduled for injections. Prior SI joint injections: 10/04/2023, 04/28/2023, 08/14/2022, 05/08/2022, 10/15/2021. 3 injections werebilateral SI joint injections. Patient did not want to schedule office visit prior to next round of injections, I did let him knowif he needed additional injections, I would have to discuss with Dr. Mckoy, possible office visit. I d/w Dr. Mckoy, she states patient may want to consider seeing pain management for SI joint ablation if pain comes back after this round of injections. (Patient had mentioned he knew someone that had a procedure in the SI joint that was not a fusion and did well, was going to ask his acquaintance next time he sees them where it was done). * Allison Euceda MA - 09/25/2024 9:31 AM EDT Patient would like to be referred back for injections, please review documented in this encounter Plan of Treatment Scheduled Orders Name Type Priority Associated Diagnoses Orde r Schedule IR Inj Anes/Steroid Nerve Sacroiliac Joint bilat Imaging Routine Sacroiliitis ([facility] V24) Expected: 09/26/2024, Expires: 09/26/2025 documented as of this encounter Visit Diagnoses Diagnosis Sacroiliitis ([facility] V24)- Primary Sacroiliitis, not elsewhere classified documented in this encounter Care Teams Technology Specialist Relationship Specialty Start Date End Date Elmo Moreno NP [address] [facility] [place] PCP - General 05/15/22 documented as of this encounter
--- OUTSIDE RECORDS SUMMARY | 2024-09-29 09:17 | XMS_ITS | Clinical Summary ---
Author Organization [facility] Address [address] [place] [address] Care Team Providers Care Supervisor Operations Name Role Phone Elmo Moreno Primary Care Provider [phone] Allergies No known active allergies Medications Medication [...] Advance Directives For more information, please contact: [phone] Latest Code Status on File Code Status Date Activated Date Inactivated Comments Full Code 03/18/2020 12:11 PM 03/18/2020 9:28 PM This c ode status was ascertained in the following way: discussion with patient . Care Teams Supervisor Operations Relationship Specialty Start Date End Date Elmo Moreno: [phone] [address] [facility] [place] [address] PCP - General Family Medicine 03/07/20
== END 2024-09-29 09:36 | disposition home or self-care (01) ==
LOC: HO.HUSH 09:00
PROVIDERS: PCP Nurse Practitioner Family; Visit Provider Urology
DX: N20.0 Calculus of kidney (principal); N52.01 Erectile dysfunction due to arterial insufficiency; E29.1 Testicular hypofunction
CPT/HCPCS: 99213; G2211

== ENCOUNTER → 2024-09-29 08:59 | Outpatient (BNVA) | payer OTHER, SELFPAY | PROVIDERS: PCP Nurse Practitioner Family; Visit Provider Urology | DX: E29.1 Testicular hypofunction (principal); N52.01 Erectile dysfunction due to arterial insufficiency; N20.0 Calculus of kidney | CPT/HCPCS: 99212 ==

== ENCOUNTER 2024-10-23 10:43 | Outpatient (AMB) | payer OTHER, SELFPAY ==
--- NOTE | 2024-10-23 10:47 | A.OFFVIS_ITS ---
Intake Visit Reasons: PO LT Shld 08/09/24 NE f/u Intake Note: Gerard is a 44 year old right hand dominant male who presents today for a post operative follow up about 10 weeks s/p Left shoulder RTC repair with SAD and sub pectoral biceps tenodesis. He continues to work with [facility] at the [place]. [place] reports that the left sohulder continues to be sore. He still is struggling iwth ROM, unable to lift arm above shoulder height. 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 Allergies No Known Allergies (No Known Allergies*) Allergy (Verified 09/29/24 09:09) HPI HPI PO LT Shld 08/09/24 NE f/u: Details: Gerard is a 44 year old right hand dominant male who presents today for a post operative follow up about 10 weeks s/p Left shoulder RTC repair with SAD and sub pectoral biceps tenodesis. He continues to work with Physical Therapy at the [place] [place] reports that the left sohulder continues to be sore. He still is struggling with ROM, unable to lift arm above shoulder height. 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 [facility] Medical History TMJ (temporomandibular joint disorder) Tubular adenoma of colon GERD (gastroesophageal reflux disease) Anxiety with depression PTSD (post-traumatic stress disorder) Lumbar stenosis HTN (hypertension) Sleep apnea Hypogonadism in male BPH (benign prostatic hyperplasia) Renal calculi CKD (chronic kidney disease) Right foot pain Surgical History History of esophagogastroduodenoscopy (EGD) H/O colonoscopy Incarcerated umbilical hernia (04/14/24) Status post right rotator cuff repair Status post right foot surgery Family History Father No problems noted. Mother No problems noted. 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 Continue physical therapy for range of motion especially external rotation. Biceps tenodesis site appears normal. Work status: Remains out of work Follow up: 6 weeks Coding Level of Care Code Global (22959) Diagnoses S/P left rotator cuff repair Z98.890
--- OUTSIDE RECORDS SUMMARY | 2024-10-23 13:05 | XMS_ITS | Clinical Summary ---
Author Organization [facility] Facility Address [address] [place] [address] Care Team Providers Care Continuous Improvement Director Name Role Phone Unavailable Primary Care Provider [...]
--- OUTSIDE RECORDS SUMMARY | 2024-10-23 13:05 | XMS_ITS | Clinical Summary ---
Author Organization [address] [facility] Address [address] [place] [address] Phone Care Team Providers Care Roller Mill Operator Name Role Phone Kbjone Elmo Curry NP Primary Care Provider Allergies No known active allergies Medications syringe with needle, safety 1 mL 25 gauge x 5/8 syringe BD Disp [place] 25G X 5/8 Misc USE DIRECTED WEEKLY [...] and strain of hip and thigh Sacroiliitis ([facility] V24) 08/26/2021 Overview (03/14/2024): Last Assessment & [...] questions answered. Stage 3a chronic kidney disease ([facility] V24, CM S/[facility] V28) 03/02/2021 Essential hypertension 02/25/2021 Renal stone 02/25/2021 Other hammer toe(s) (acquired), right foot 02/13 Resolved Problems Problem Noted Date Diagnosed Date Resolved Date Dermatitis 09/21/2023 03/20/2024 Gastroenteritis 09/21/2023 03/20/2024 Encounters Date Type Department Care Team Description 09/25/2024 Telephone Neurosurgery [facility] [address] [place] [address] Allison Euceda MA from Last [...] 04/28/2024 7:09 AM EDT Plan of Treatment Upcoming Encounters Date Type Department Care Team (Late st Contact Info) Description 10/25/2024 10:00 AM EDT Appointment [facility] Interventional Radiology [address] [place] [phone] 10/30/2024 4:00 PM EDT Office Visit Neurosurgery [facility] [address] [facility] [address] [place] [phone] Kaci Mckoy MD [address] [place] [address] Health Maintenance Due Date Last Done Comments [...] patient's age to complete this topic Insurance [facility] Care Teams Roller Mill Operator Relationship Specialty Start Date End Date Elmo Moreno NP [address] [facility], [place] PCP - General 05/15/22
--- OUTSIDE RECORDS SUMMARY | 2024-10-23 13:05 | XMS_ITS | Clinical Summary ---
Author Organization [facility] Address [address] [place] [address] Care Team Providers Care Uniform Maker Name Role Phone Elmo Moreno Primary Care Provider [phone] Allergies No known active allergies Medications Medication [...] Advance Directives For more information, please contact: [phone] Latest Code Status on File Code Status Date Activated Date Inactivated Comments Full Code 03/18/2020 12:11 PM 03/18/2020 9:28 PM This c ode status was ascertained in the following way: discussion with patient . Care Teams Uniform Maker Relationship Specialty Start Date End Date Elmo Moreno: [id number] [address] [facility] [place] [address] PCP - General Family Medicine 03/07/20
--- OUTSIDE RECORDS SUMMARY | 2024-10-23 13:05 | XMS_ITS | Patient Health Record ---
Author Organization [facility] Address [address] [facility] [address] Care Team Providers Care Maintenance Leader Name Role Phone Mildred Singh MD Primary Care Provider Bowen Arellano Unavailable [phone] Reason For Referral No Information Medications Medication [...] Note-Appointment . . . Pt [facility] appointment today; Duration: . Active Work Note [...] X ray : Foot, right 3V 10/14/2016 66955-Uujt Destruction, -10/14/2016 03224-Togu Destruction, -12/21/2016 23050-Fxrg Destruction, 02-2801/18/2017 [id number] TENDON SHEATH/LIGAMENT 1 03/05/2017 Insurance Providers Payer Name Payer Address Payer Phone Subscriber Number Group Number Insured Name Patient Relationship to Insured Coverage Start Date Coverage End Date [facility] [address] [place] [address] [id number] Gerard Schultz Self - patient is the insured Medical (General) History Medical History History ICD Code Measles Chicken pox Surgical History Surgery Date(Month/Year) Kidney stones removed - Rohan Faye Ligaments and tendons striped away from right hand pinky finger 10/2016 Hospitalization History Reason Date(Month/Year) [facility] , Right pinky finger 10/2016
== END 2024-10-23 11:21 | disposition home or self-care (01) ==
LOC: HO.HOS 10:44
PROVIDERS: PCP Nurse Practitioner Family; Visit Provider Orthopaedic Surgery
DX: Z98.890 Other specified postprocedural states (principal)
CPT/HCPCS: 99024

== ENCOUNTER → 2024-10-23 10:43 | Outpatient (BNVA) | payer OTHER, SELFPAY | PROVIDERS: PCP Nurse Practitioner Family; Visit Provider Orthopaedic Surgery | DX: M25.512 Pain in left shoulder (principal); Z98.890 Other specified postprocedural states | CPT/HCPCS: 99212 ==

== ENCOUNTER 2024-11-10 08:28 | Outpatient (AMB) | payer OTHER, SELFPAY ==
--- OUTSIDE RECORDS SUMMARY | 2024-11-10 08:47 | XMS_ITS | Clinical Summary ---
Author Organization [facility] Address [address] [place] [address] Care Team Providers Care Senior Project Coordinator Name Role Phone Elmo Moreno Primary Care Provider [phone] Allergies No known active allergies Medications Medication [...] Advance Directives For more information, please contact: [phone] Latest Code Status on File Code Status Date Activated Date Inactivated Comments Full Code 03/18/2020 12:11 PM 03/18/2020 9:28 PM This c ode status was ascertained in the following way: discussion with patient . Care Teams Senior Project Coordinator Relationship Specialty Start Date End Date Elmo Moreno: [id number] [address] [facility] [place] [address] PCP - General Family Medicine 03/07/20
--- OUTSIDE RECORDS SUMMARY | 2024-11-10 08:47 | XMS_ITS | Clinical Summary ---
Author Organization [facility] Facility Address [address] [place] [address] Care Team Providers Care Nuclear Powerplant Supervisor Name Role Phone Unavailable Primary Care Provider [...]
--- OUTSIDE RECORDS SUMMARY | 2024-11-10 08:47 | XMS_ITS | Clinical Summary ---
Author Organization 175 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 Active hydroCHLOROthi azide (HYDRODIURIL) 25 mg tablet Take 1 tablet (25 mg total) by mouth 1 (one) time each day. 5 Active losartan (COZAAR) 100 mg tablet Take 1 tablet (100 mg total) by mouth 1 (one) time each day. 5 Active Active Problems Problem Noted Date [...] and strain of hip and thigh Sacroiliitis ([facility] V24) 08/26/2021 Overview (03/14/2024): Last Assessment [...] questions answered. Stage 3a chronic kidney disease ([facility] V24, CM S/HCC V28) 03/02/2021 Essential hypertension 02/25/2021 Renal stone 02/25/2021 Other hammer toe(s) (acquired), right foot 02/13 Resolved Problems Problem Noted Date Diagnosed Date Resolved Date Dermatitis 09/21/2023 03/20/2024 Gastroenteritis 09/21/2023 03/20/2024 Encounters Date Type Department Care Team Description 10/25/2024 9:08 AM EDT - 10/25/2024 11:59 PM EDT Hospital Encounter [facility] Interventional Radiology [address] [place] [address] Sacroiliitis ([facility] V24) Discharge Disposition: Home or Self Care 09/25/2024 Telephone Neurosurgery [facility] [address] [facility] [address] [place] [address] Allison Jung MA from Last 3 Months Immunizations Name [...] Sign [place] Time Taken Comments Blood Pressure 144/88 10/25/2024 11:45 AM EDT Pulse 90 10/25/2024 11:45 AM EDT Temperature 36.5 C (97.7 F) 10/25/2024 9:18 AM EDT Respiratory Rate 16 10/25/2024 9:18 AM EDT Oxygen Saturation 95% 10/25/2024 11:45 AM EDT Inhaled Oxygen Concentration - - Weight 104 kg (230 lb) 10/25/2024 9:18 AM EDT Height 177.8 cm (5' 10 ) 10/25/2024 9:18 AM EDT Body Mass Index 33 10/25/2024 9:18 AM EDT Plan of Treatment Health Maintenance [...] Depression Screening 02/16/2024 Influenza Vaccine (#1) 2024 , 12/21/2021, 01/18/2021, Additional history exists DTaP,Tdap,and Td [...] Comments IR INJ ANES/STEROID NERVE SACROILIAC JOINT BILAT Routine 10/25/2024 11:09 AM EDT Sacroiliitis ([facility] V24) from Last 3 Months Results * IR Inj Anes/Steroid Nerve Sacroiliac Joint bilat (10/25/2024 11:09 AM EDT) Anatomical Region Laterality Modality Bilateral Interventional R adiology 10/25/2024 11:3 2 AM EDT Impressions 10/25/2024 11:35 AM EDT Bilateral sacroiliac joint steroid and BUPIVACAINE injection. -------- FINAL REPORT -------- Dictated By: Tommy Kapadia Dictated Date: 10/25/2024 11:32 ET Assigned Physician: Tommy Kapadia Reviewed and Electronically Signed By: Tommy Kapadia Signed Date: 10/25/2024 11:35 ET Workstation ID: [id number] Transcribed By: Self Edit Transcribed Date: 10/25/2024 11:32 ET Narrative 10/25/2024 11:35 AM EDT Sacroiliac joint injection, bilateral INDICATION: Chronic low back pain. Patient has had intermittent success with previous sacroiliac joint injections. PROCEDURE: Informed written consent was obtained from the patient. Patient was placed in prone positioning and initial imaging through the sacroiliac joint was performed. The overlying skin was demarcated bilaterally. The skin was prepped and draped in usual sterile fashion and a timeout was performed per local guidelines. 1% LIDOCAINE was used for local anesthesia. A total of 10 mL was administered. Under continuous CT fluoroscopic guidance, a 21-gauge spinal needles were advanced to the lower portion of the sacroiliac joint and confirmed with imaging. A mixture of 40 mg of METHYLPREDNISOLONE and 2 mL of 0.25% MARCAINE was injected into each sacroiliac joint without difficulty. The patient tolerated the procedure well with no immediate complications. Hemostasis was achieved and a sterile dressing was applied. The patient was discharged to the recovery unit in stable condition. Moderate sedation: Under direct physician supervision, the patient was moderately sedated with 100 mcg FENTANYL and 4 mg VERSED IV for a total of 20 minutes. An independent interventional radiology nurse observer trained in conscious sedation provided continuous physiologic monitoring of the patient during the entirety of the procedure through recovery. Procedure Note Tommy Kapadia MD - 10/25/2024 Sacroiliac joint injection, bilateral INDICATION: Chronic low back pain. Patient has had intermittent successwith previous sacroiliac joint injections. PROCEDURE: Informed written consent was obtained from the patient.Patient was placed in prone positioning and initial imaging through thesacroiliac joint was performed. The overlying skin was demarcatedbilaterally. The skin was prepped and draped in usual sterile fashion genny timeout was performed per local guidelines. 1% LIDOCAINE was used for local anesthesia. A total of 10 mL wasadministered. Under continuous CT fluoroscopic guidance, a 21-gauge spinal needles wereadvanced to the lower portion of the sacroiliac joint and confirmed withimaging. A mixture of 40 mg of METHYLPREDNISOLONE and 2 mL of 0.25%MARCAINE was injected into each sacroiliac joint without difficulty. Thepatient tolerated the procedure well with no immediate complications.Hemostasis was achieved and a sterile dressing was applied. The patient was discharged to the recovery unit in stable condition. Moderate sedation: Under direct physician supervision, the patient wasmoderately sedated with 100 mcg FENTANYL and 4 mg VERSED IV for a totalof 20 minutes. An independent interventional radiology nurse observertrained in conscious sedation provided continuous physiologic monitoringof the patient during the entirety of the procedure through recovery. IMPRESSION: Bilateral sacroiliac joint steroid and BUPIVACAINE injection. 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
--- OUTSIDE RECORDS SUMMARY | 2024-11-10 08:47 | XMS_ITS | Patient Health Record ---
Author [facility] Address [address] [facility] [place] [address] Care Team Providers Care Drill Sharpener Name Role Phone Mildred Singh MD Primary Care Provider Bowen Arellano Unavailable [phone] Reason For Referral No Information Medications Medication [...] Note-Appointment . . . Pt had a [facility] appointment today; Duration: . Active Work [...] X ray : Foot, right 3V 10/14/2016 [id number]-Lgtz Destruction, -10/14/2016 28300-Beco Destruction, -12/21/2016 10543-Akdp Destruction, 02-2801/18/2017 [id number] TENDON SHEATH/LIGAMENT 1 03/05/2017 Insurance Providers Payer Name Payer Address Payer Phone Subscriber Number Group Number Insured Name Patient Relationship to Insured Coverage Start Date Coverage End Date [facility] [address] [place] [id number] Gerard Schultz Self - patient is the insured Medical (General) History Medical History History ICD Code Measles Chicken pox Surgical History Surgery Date(Month/Year) Kidney stones removed - Rohan Faye Ligaments and tendons striped away from right hand pinky finger 10/2016 Hospitalization History Reason Date(Month/Year) [facility] , Right pinky finger 10/2016
--- NOTE | 2024-11-10 08:50 | MHC.OFFVIS ---
Intake Visit Reasons: OV-Left RTC repair 08/09/24 Intake Note: Gerard is a 44 year old right hand dominant male who presents today for a follow up of his Left shoulder RTC repair with SAD and sub pectoral biceps tenodesis 08/09/24. Patient mentions that he was doing some exercises at home and he felt his should lock. When he forced his shoulder to move her heard a pop . He notices that he had swelling and increase of pain. Allergies No Known Allergies (No Known Allergies*) Allergy (Verified 11/10/24 08:54) HPI HPI OV-Left RTC repair 08/09/24: Details: Mr. Schultz is a 44 year old right hand dominant male who presents today for a follow up of his Left shoulder RTC repair with SAD and sub pectoral biceps tenodesis 08/09/24. Patient mentions that he was doing some exercises at home and he felt his shoulder lock. When he forced his shoulder to move her heard a pop accompanied by increased pain and swelling. He denies any bruising. He has been holding on physical therapy until his appointment today. [facility] Medical History TMJ (temporomandibular joint disorder) Tubular adenoma of colon GERD (gastroesophageal reflux disease) Anxiety with depression PTSD (post-traumatic stress disorder) Lumbar stenosis HTN (hypertension) Sleep apnea Hypogonadism in male BPH (benign prostatic hyperplasia) Renal calculi CKD (chronic kidney disease) Right foot pain Surgical History History of esophagogastroduodenoscopy (EGD) H/O colonoscopy Incarcerated umbilical hernia (04/14/24) Status post right rotator cuff repair Status post right foot surgery Family History Father No problems noted. Mother No problems noted. 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 There is no ecchymosis noted in the left upper extremity. Normal biceps contour. Tenderness to palpation over the biceps tendon attachment. Office with 90 degrees forward flexion abduction. Able to palpate the pec attachment with hook test. NVI. Psych Appearance: grossly normal Mental Status: mental status grossly normal Attitude: cooperative Assessment & Plan Assessment & Plan (1) S/P left rotator cuff repair: Code(s): Z98.890 - Other specified postprocedural states Category: Surgical Plan Mr. Schultz is a 44 year old right hand dominant male who presents today for a follow up of his Left shoulder RTC repair with SAD and sub pectoral biceps tenodesis 08/09/24. Patient mentions that he was doing some exercises at home and he felt his shoulder lock. When he forced his shoulder to move her heard a pop accompanied by increased pain and swelling. He denies any bruising. He has been holding on physical therapy until his appointment today. While in the office today, I do not see any obvious abnormality about the left shoulder. There is no reported ecchymosis after this injury or present during the office today. I do feel the pec attachment in place on physical exam. He will return to physical therapy and I would like to re-evaluate him in [address] Monson in the office, sooner if needed. X-rays of the left shoulder which were obtained while in the office today and were reviewed by me, Sharmila Jaffe PA-C, revealed intact rotator cuff anchors as well as the Endobutton from the pec reattachment in proper position. Orders: Orders XR shoulder LT min 2V Today M25.519 - Pain in unspecified shoulder Coding Level of Care Code Global (74045) Diagnoses S/P left rotator cuff repair Z98.890
== END 2024-11-10 09:34 | disposition home or self-care (01) ==
LOC: HO.HOS 08:29
PROVIDERS: PCP Nurse Practitioner Family; Visit Provider Physician Assistant
DX: Z47.89 Encounter for other orthopedic aftercare (principal); S46.011D Strain of muscle(s) and tendon(s) of the rotator cuff of right shoulder, subsequent encounter
CPT/HCPCS: 99213

== ENCOUNTER 2024-11-10 08:28 | Outpatient (REF) | payer OTHER, SELFPAY ==
--- NOTE | ~2024-11-10 | XR_ITS ---
CLINICAL HISTORY: M25.519 - Pain in unspecified shoulder 3 view left shoulder Comparison: MR - MR SHOULDER LT WO CON - 04/24/24 07:39 EDT DX - XR SHOULDER LT MIN 2V - 04/11/24 13:40 EST Findings: Suture anchors are identified within the left humeral head, new since the patient's prior radiographs. Alignment of the glenohumeral joint and AC joints is anatomic. Glenohumeral joint is well-maintained. Moderate degenerative change of the AC joint. No dislocation or separation. IMPRESSION: Interval rotator cuff surgery. No acute bony finding. This document has been electronically signed by: Dontae Mendez MD on 11/11/2024 12:18:12
== END 2024-11-10 08:29 | disposition home or self-care (01) ==
LOC: HO.HOSX 08:28
PROVIDERS: PCP Nurse Practitioner Family; Visit Provider Physician Assistant
DX: Z47.89 Encounter for other orthopedic aftercare (principal); Z98.890 Other specified postprocedural states
CPT/HCPCS: 73030; 99212

== ENCOUNTER → 2024-11-10 08:34 | Outpatient (BNV) | payer OTHER, SELFPAY | PROVIDERS: PCP Nurse Practitioner Family; Visit Provider Radiology Diagnostic Radiology | DX: M25.512 Pain in left shoulder (principal) | CPT/HCPCS: 73030 ==

== ENCOUNTER 2024-11-23 13:56 | Outpatient (AMB) | payer OTHER, SELFPAY ==
--- NOTE | 2024-11-23 14:14 | A.OFFVIS_ITS ---
Intake Visit Reasons: Ov- Left RTC repair 08/09/24 w/ lyft Intake Note: Gerard is a 44 year old right hand dominant male who presents today for a follow up of his Left shoulder RTC repair with SAD and sub pectoral biceps tenodesis 08/09/24. AT his last visit he was advised to go to physical therapy. Patient mentions he is still having pain in his shoulder, no improvements at this time. Allergies No Known Allergies (No Known Allergies*) Allergy (Verified 11/23/24 14:17) HPI HPI Ov- Left RTC repair 08/09/24 w/ lyft: Details: Mr. Schultz is a 44-year-old male who presents to the office today for follow-up status post rotator cuff repair on the left on 08/09/2024. Patient reports roughly 2 and half weeks ago he felt a popping sensation with a mechanical blockage. He forced the left shoulder and to motion and felt a pop with increased pain. Patient has been having pain ever since. He has been causing on physical therapy until re-evaluation in the office today. [facility] Medical History TMJ (temporomandibular joint disorder) Tubular adenoma of colon GERD (gastroesophageal reflux disease) Anxiety with depression PTSD (post-traumatic stress disorder) Lumbar stenosis HTN (hypertension) Sleep apnea Hypogonadism in male BPH (benign prostatic hyperplasia) Renal calculi CKD (chronic kidney disease) Right foot pain Surgical History History of esophagogastroduodenoscopy (EGD) H/O colonoscopy Incarcerated umbilical hernia (04/14/24) Status post right rotator cuff repair Status post right foot surgery Family History Father No problems noted. Mother No problems noted. 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 There is no ecchymosis noted in the left upper extremity. Normal biceps contour. Tenderness to palpation over the biceps tendon attachment. Office with 100 degrees forward flexion and 90 degrees of abduction. Able to palpate the pec attachment with hook test. NVI. Psych Appearance: grossly normal Mental Status: mental status grossly normal Attitude: cooperative Assessment & Plan Assessment & Plan (1) Painful arc syndrome of left shoulder: Code(s): M75.102 - Unspecified rotator cuff tear or rupture of left shoulder, not specified as traumatic Category: Medical (2) S/P left rotator cuff repair: Code(s): Z98.890 - Other specified postprocedural states Category: Surgical Plan Mr. Schultz is a 44-year-old male who presents to the office today for follow-up status post rotator cuff repair on the left on 08/09/2024. Patient reports roughly 2 and half weeks ago he felt a popping sensation with a mechanical blockage. He forced the left shoulder and to motion and felt a pop with increased pain. Patient has been having pain ever since. He has been causing on physical therapy until re-evaluation in the office today. While the office today Dr. Monson was available to see the patient with me. Hit is likely that the biceps anchor has displaced from the original placement site. Also comparing x-rays from the prior visit it does appear as though the anchor is located distally and lateral to the surgical site. The Endobutton still remains intact. On physical examination the patient does have good resistance strength against pronation and supination. Patient will resume physical therapy. He will remain out of work until December 18 2024. At that time he will resume back to work with no use of the left upper extremity. He will follow up in the office in 4-6 weeks, sooner if needed. Coding Level of Care Code Global (82066) Diagnoses Painful arc syndrome of left shoulder M75.102 S/P left rotator cuff repair Z98.890
== END 2024-11-23 14:59 | disposition home or self-care (01) ==
LOC: HO.HOS 13:57
PROVIDERS: PCP Nurse Practitioner Family; Referring Provider Physician Assistant; Visit Provider Physician Assistant
DX: M75.102 Unspecified rotator cuff tear or rupture of left shoulder, not specified as traumatic (principal); Z98.890 Other specified postprocedural states
CPT/HCPCS: 99213

== ENCOUNTER → 2024-11-23 13:56 | Outpatient (BNVA) | payer OTHER, SELFPAY | PROVIDERS: PCP Nurse Practitioner Family; Visit Provider Physician Assistant | DX: M25.512 Pain in left shoulder (principal); M75.102 Unspecified rotator cuff tear or rupture of left shoulder, not specified as traumatic; Z98.890 Other specified postprocedural states | CPT/HCPCS: 99212 ==

== ENCOUNTER 2024-12-12 09:16 | Outpatient (AMB) | payer OTHER, SELFPAY ==
[2024-12-12 09:25] VITALS: BP 172/110; PULSE 100; TEMP 36.9; O2SAT 95; BMI 35.4
--- NOTE | 2024-12-12 09:25 | AM.OFFWIN_ITS ---
Intake Vital Signs 12/12/24 09:25 Height 5 ft 10 in Weight 247 lb BMI 35.4 BP 172/110 H Blood Pressure Location Rt brachial Position Sitting Pulse 100 Pulse Source Pulse Oximeter Temp 98.5 F Temp Source Oral Pulse Oximetry (%) 95 Oxygen Delivery Method Room Air Intake Visit Reasons: EP Lump on lower abdomen Intake Note: pt presents with tender growth on mid low abdomen x1 month. also notes un- resolving cough s/p flu Patient Tobacco Use Status: Former Tobacco user Allergies No Known Allergies (No Known Allergies*) Allergy (Verified 12/12/24 09:27) Do you need a note to return to daycare/school/sports/work: No HPI HPI Comments History of Present Illness Details History of Present Illness - The patient is a 44-year-old male pres enting with a persistent abdominal mass. - The mass has been present for one aster h and is located in the below and to the left of his belly button. - The mass is tender upon palpation, zeferino ecially when pressure is applied, such as from a belt. - The patient has a history of hernia scott rgery and is concerned about the possibility of another hernia. - The patient reports high caffeine cons umption, approximately 300 mg, which may contribute to elevated heart rate and blood pressure today. He also states it is always high when he comes to the doctor. - There is no change in bowel or urinary habits, and no history of diverticulitis. - The patient has undergone a colonoscop y due to a family history of colon cancer, which was unremarkable. Review of Systems - Cardiovascular: Denies chest pain, ort hopnea, or syncope. - Gastrointestinal: Denies changes in tiffanie wel habits, constipation, diarrhea, or blood in stools. All systems reviewed and are unremarkable except as noted in HPI Physical Exam General: Cooperative, healthy appearing, comfortable, no acute distress and well developed Orientation: Patient oriented x3 Limitations: No limitations Head: Normal to inspection Ears: Hearing grossly normal bilaterally Nose: Normal External nose present Face and sinus: Normal facial exam Eyes: Appearance normal, both eyes and all related structures Neck: Normal visual inspection and Yes full ROM Respiratory: Normal respiratory effort and able to speak in complete sentences. Skin: LLQ of the abdomen towards bladder has an approximately 2.5 cm oblong firm lump, tender to deep palpation. Neuro: Patient oriented x3 Extremities: Normal to inspection [facility] Medical History TMJ (temporomandibular joint disorder) Tubular adenoma of colon GERD (gastroesophageal reflux disease) Anxiety with depression PTSD (post-traumatic stress disorder) Lumbar stenosis HTN (hypertension) Sleep apnea Hypogonadism in male BPH (benign prostatic hyperplasia) Renal calculi CKD (chronic kidney disease) Right foot pain Surgical History History of esophagogastroduodenoscopy (EGD) H/O colonoscopy Incarcerated umbilical hernia (04/14/24) Status post right rotator cuff repair Status post right foot surgery Family History Father No problems noted. Mother No problems noted. 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 Abdominal Mass - An ultrasound of the abdomen is ordered to evaluate the mass further, possible lipoma vs hernia vs other. (2) Elevated blood pressure reading in office with diagnosis of hypertension: Code(s): I10 - Essential (primary) hypertension Plan: Hypertension - Monitor blood pressure regularly at home to ensure it comes down to <140/90 - today it is elevated likely due to consuming his pre-workout drink just prior to coming to the office. Orders: Orders US abdomen limited Today R19.04 - Left lower quadrant abdominal swelling, mass and lump Coding Level of Care Code Est Pt Level 4 (14553) Diagnoses Left lower quadrant abdominal swelling, mass and lump R19.04 Elevated blood pressure reading in office with diagnosis of hypertension I10
--- OUTSIDE RECORDS SUMMARY | 2024-12-12 10:22 | XMS_ITS | Clinical Summary ---
Author Organization [facility] Address [address] [place] [address] Care Team Providers Care Piano And Organ Refinisher Name Role Phone Elmo Moreno Primary Care [...] Advance Directives For more information, please contact: [phone] Latest Code Status on File Code Status Date Activated Date Inactivated Comments Full Code 03/18/2020 12:11 PM 03/18/2020 9:28 PM This c ode status was ascertained in the following way: discussion with patient . Care Teams Piano And Organ Refinisher Relationship Specialty Start Date End Date Elmo Moreno: [phone] [address] [facility] [place] [address] PCP - General Family Medicine 03/07/20
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
--- OUTSIDE RECORDS SUMMARY | 2024-12-12 10:22 | XMS_ITS | Patient Health Record ---
Author [facility] Address [address] [place] [address] Care Team Providers Care Funeral Greeter Name Role Phone Mildred Singh MD Primary Care Provider Bowen Miller Unavailable [phone] Reason For Referral No Information Medications Medication [...] X ray : Foot, right 3V 10/14/2016 [id number] Destruction, 02-2810/14/2016 [id number] Destruction, 02-2812/21/2016 [id number] Destruction, 02-2801/18/2017 [id number] TENDON SHEATH/LIGAMENT 1 03/05/2017 Insurance Providers Payer Name Payer Address Payer Phone Subscriber Number Group Number Insured Name Patient Relationship to Insured Coverage Start Date Coverage End Date [facility] [address] [place] [address] [id number] Gerard Schultz Self - patient is the insured Medical (General) History Medical History History ICD Code Measles Chicken pox Surgical History Surgery Date(Month/Year) Kidney stones removed - Rohan Faye Ligaments and tendons striped away from right hand pinky finger 10/2016 Hospitalization History Reason Date(Month/Year) [facility] , Right pinky finger 10/2016
== END 2024-12-12 10:13 | disposition home or self-care (01) ==
PROVIDERS: PCP Nurse Practitioner Family; Visit Provider Physician Assistant
DX: R19.04 Left lower quadrant abdominal swelling, mass and lump (principal); I10 Essential (primary) hypertension

== ENCOUNTER → 2024-12-12 09:16 | Outpatient (BNVA) | payer OTHER, SELFPAY | PROVIDERS: PCP Nurse Practitioner Family; Visit Provider Physician Assistant | DX: I10 Essential (primary) hypertension (principal); R19.04 Left lower quadrant abdominal swelling, mass and lump | CPT/HCPCS: 99212 ==

== ENCOUNTER 2024-12-13 14:53 | Outpatient (REF) | payer OTHER, SELFPAY ==
--- NOTE | ~2024-12-13 | US_ITS ---
EXAMINATION: US PELVIS, LIMITED/FOLLOW UP CLINICAL INFORMATION: R19.04 - Left lower quadrant abdominal swelling, mass and lump COMPARISON: None available. TECHNIQUE: Grayscale and color imaging of the soft tissues of the anterior abdominal wall in the left lower quadrant in area of palpable abnormality FINDINGS: There is a bright linear echogenic density measuring 1 x 7 mm questionable for soft tissue foreign body, particularly a broken needle. There is a small amount of surrounding fluid measuring up to 1.7 x 0.6 x 2.6 cm. This is just deep to the skin and slightly to the left of midline. US/US pelvic limited IMPRESSION: 1 x 7 mm bright linear echogenic density questionable for a foreign body and small amount of surrounding fluid. This may represent a broken needle. Follow-up x-ray correlation recommended. Findings communicated to Tristan Espinoza by govind lott on 12/13/2024 at 3:20 PM Electronically signed by: Libia Jackson MD 12/13/2024 03:22 PM EDT
--- OUTSIDE RECORDS SUMMARY | 2024-12-13 19:17 | XMS_ITS | Patient Health Record ---
Author [facility] Address [address] [place] [address] Care Team Providers Care Laundry Room Attendant Name Role Phone Mildred Singh MD Primary Care Provider Bowen Miller Unavailable [phone] Reason For Referral No Information Medications Medication [...] Note-Appointment . . . Pt had a major hospital appointment today; Duration: . Active Work [...] X ray : Foot, right 3V 10/14/2016 [id number] Destruction, 02-2810/14/2016 [id number] Destruction, 02-2812/21/2016 [id number] Destruction, 02-2801/18/2017 [id number] TENDON SHEATH/LIGAMENT 1 03/05/2017 Insurance Providers Payer Name Payer Address Payer Phone Subscriber Number Group Number Insured Name Patient Relationship to Insured Coverage Start Date Coverage End Date [facility] [address] [place] [address] [id number] Gerard Schultz Self - patient is the insured Medical (General) History Medical History History ICD Code Measles Chicken pox Surgical History Surgery Date(Month/Year) Kidney stones removed - Rohan Faye Ligaments and tendons striped away from right hand pinky finger 10/2016 Hospitalization History Reason Date(Month/Year) [facility] , Right pinky finger 10/2016
--- OUTSIDE RECORDS SUMMARY | 2024-12-13 19:17 | XMS_ITS | Clinical Summary ---
Author Organization [facility] Address [address] [place] [address] Phone Care Team Providers Care Md Allergy Immunology Name Role Phone KbjoneElmo NP Primary Care Provider Allergies No known active allergies Medications syringe with needle, safety 1 mL 25 gauge x 5/8 syringe BD Disp [place] 25G X 5/8 Misc USE DIRECTED WEEKLY [...] and strain of hip and thigh Sacroiliitis ([facility] V24) 08/26/2021 Overview (03/14/2024): Last Assessment [...] questions answered. Stage 3a chronic kidney disease (CMS/[facility] V24, CM S/HCC V28) 03/02/2021 Essential hypertension 02/25/2021 Renal stone 02/25/2021 Other hammer toe(s) (acquired), right foot 02/13 Resolved Problems Problem Noted Date Diagnosed Date Resolved Date Dermatitis 09/21/2023 03/20/2024 Gastroenteritis 09/21/2023 03/20/2024 Encounters Date Type Department Care Team Description 10/25/2024 9:08 AM EDT - 10/25/2024 11:59 PM EDT Hospital Encounter [facility] Interventional Radiology [address] [place] [address] Sacroiliitis ([facility] V24) Discharge Disposition: Home or Self Care 09/25/2024 Telephone Neurosurgery [facility] [address] [place] [address] Allison Jung MA from Last [...] BILAT Routine 10/25/2024 11:09 AM EDT Sacroiliitis ([facility] V24) from Last 3 Months Results [...] Signed Date: 10/25/2024 11:35 ET Workstation ID: [id number] Transcribed By: Self Edit Transcribed Date: 10/25/2024 [...] Signed Date: 10/25/2024 11:35 ET Workstation ID: [id number] Transcribed By: Self Edit Transcribed Date: 10/25/2024 11:32 ET Mally QUIÑONEZ IMG IR PROCEDURES Final Re sult from Last 3 Months Insurance [facility] PLAN Care Teams Md Allergy Immunology Relationship Specialty Start Date End Date Elmo Moreno NP [address] [facility] [facility] [facility] [place] PCP - General 05/15/22
--- OUTSIDE RECORDS SUMMARY | 2024-12-13 19:17 | XMS_ITS | Clinical Summary ---
Author Organization [facility] Address [address] [place] [address] Care Team Providers Care I O Psychologist Name Role Phone Elmo Moreno Primary Care Provider [phone] Allergies No known active allergies Medications Medication [...] Advance Directives For more information, please contact: [phone] Latest Code Status on File Code Status Date Activated Date Inactivated Comments Full Code 03/18/2020 12:11 PM 03/18/2020 9:28 PM This c ode status was ascertained in the following way: discussion with patient . Care Teams I O Psychologist Relationship Specialty Start Date End Date Elmo Moreno: [phone] [address] [facility] [place] [address] PCP - General Family Medicine 03/07/20
--- OUTSIDE RECORDS SUMMARY | 2024-12-13 19:17 | XMS_ITS | Clinical Summary ---
Author Organization [facility] Address [address] [place] [address] Care Team Providers Care Human Development Professor Name Role Phone Unavailable Primary Care Provider [...]
== END 2024-12-13 14:54 | disposition home or self-care (01) ==
LOC: HO.HMGCX 14:53
PROVIDERS: PCP Nurse Practitioner Family; Visit Provider Physician Assistant
DX: R19.04 Left lower quadrant abdominal swelling, mass and lump (principal)
CPT/HCPCS: 76857

== ENCOUNTER → 2024-12-13 14:56 | Outpatient (BNV) | payer OTHER, SELFPAY | PROVIDERS: PCP Nurse Practitioner Family; Visit Provider Radiology Diagnostic Radiology | DX: R19.04 Left lower quadrant abdominal swelling, mass and lump (principal) | CPT/HCPCS: 76857 ==

== ENCOUNTER 2024-12-14 11:38 | Outpatient (REF) | payer OTHER, SELFPAY ==
--- NOTE | ~2024-12-14 | XR_ITS ---
EXAMINATION: XR ABDOMEN 1 VIEW (KUB) HISTORY: M79.5 - Residual foreign body in soft tissue COMPARISON: Correlation is made with an ultrasound of the left anterior abdominal wall at 12/13/2024. FINDINGS: Four views of the abdomen are submitted. The bowel gas pattern is unremarkable, without evidence of mechanical obstruction. No abnormal calcifications are identified. On the lateral view, for surgical clips are seen anteriorly which are not identified on the AP views. No radiopaque foreign body is identified. There are no abnormal soft tissue masses. The bones are intact. XR/XR KUB IMPRESSION: No radiopaque foreign body is seen to correspond to the abnormality seen on ultrasound. Electronically signed by: Chuckie Aguillon MD 12/14/2024 12:28 PM EDT
--- OUTSIDE RECORDS SUMMARY | 2024-12-14 14:41 | XMS_ITS | Clinical Summary ---
Author Organization [facility] Facility Address [address] [place] [address] Care Team Providers Care Induction Coordination Power Engineer Name Role Phone Unavailable Primary Care [...]
--- OUTSIDE RECORDS SUMMARY | 2024-12-14 14:41 | XMS_ITS | Clinical Summary ---
Author Organization [facility] Address [address] [place] [address] Phone Care Team Providers Care Air Tool Operator Name Role Phone KbjoneElmo NP Primary Care Provider Allergies No known active allergies Medications syringe with needle, safety 1 mL 25 gauge x 5/8 syringe BD Disp Douglas 25G X 5/8 Misc USE DIRECTED WEEKLY [...] and strain of hip and thigh Sacroiliitis ([facility] V24) 08/26/2021 Overview (03/14/2024): Last Assessment & [...] questions answered. Stage 3a chronic kidney disease ([facility] V24, CM S/HCC V28) 03/02/2021 Essential hypertension 02/25/2021 Renal stone 02/25/2021 Other hammer toe(s) (acquired), right foot 02/13 Resolved Problems Problem Noted Date Diagnosed Date Resolved Date Dermatitis 09/21/2023 03/20/2024 Gastroenteritis 09/21/2023 03/20/2024 Encounters Date Type Department Care Team Description 10/25/2024 9:08 AM EDT - 10/25/2024 11:59 PM EDT Hospital Encounter [facility] Interventional Radiology [address] [place] [address] Sacroiliitis ([facility] V24) Discharge Disposition: Home or Self Care 09/25/2024 Telephone Neurosurgery [facility] [address] [facility] [address] [address] Allison Jung MA from Last 3 [...] BILAT Routine 10/25/2024 11:09 AM EDT Sacroiliitis ([facility] V24) from Last 3 Months Results * [...] Signed Date: 10/25/2024 11:35 ET Workstation ID: [id number] Transcribed By: Self Edit Transcribed Date: 10/25/2024 [...] Signed Date: 10/25/2024 11:35 ET Workstation ID: [id number] Transcribed By: Self Edit Transcribed Date: 10/25/2024 11:32 ET Mally QUIÑONEZ IMG IR PROCEDURES Final Re sult from Last 3 Months Insurance [employer] Care Teams Air Tool Operator Relationship Specialty Start Date End Date Elmo Moreno NP [address] [facility] [place] PCP - General 05/15/22
--- OUTSIDE RECORDS SUMMARY | 2024-12-14 14:41 | XMS_ITS | Clinical Summary ---
Author Organization [facility] Address [address] [place] [address] Care Team Providers Care Pr Internship Name Role Phone Elmo Moreno Primary Care Provider [phone] Allergies No known active allergies Medications Medication [...] Advance Directives For more information, please contact: [phone] Latest Code Status on File Code Status Date Activated Date Inactivated Comments Full Code 03/18/2020 12:11 PM 03/18/2020 9:28 PM This c ode status was ascertained in the following way: discussion with patient . Care Teams Pr Internship Relationship Specialty Start Date End Date Elmo Moreno: [id number] [address] [facility] [place] [address] PCP - General Family Medicine 03/07/20
--- OUTSIDE RECORDS SUMMARY | 2024-12-14 14:41 | XMS_ITS | Patient Health Record ---
Author Organization [facility] Address [address] [place] [address] Care Team Providers Care Hydrodynamicist Name Role Phone Mildred Singh MD Primary Care Provider Bowen Miller Unavailable [phone] Reason For Referral No Information Medications Medication [...] Note-Appointment . . . [facility]; Duration: . Active Work Note [...] X ray : Foot, right 3V 10/14/2016 [id number] Destruction, 02-2810/14/2016 02921-Wrrs Destruction, 02-2812/21/2016 55726-Nctj Destruction, 02-2801/18/2017 [id number] TENDON SHEATH/LIGAMENT 1 03/05/2017 Insurance Providers Payer Name Payer Address Payer Phone Subscriber Number Group Number Insured Name Patient Relationship to Insured Coverage Start Date Coverage End Date [facility] [address] [place] [address] [id number] Gerard Schultz Self - patient is the insured Medical (General) History Medical History History ICD Code Measles Chicken pox Surgical History Surgery Date(Month/Year) Kidney stones removed - Rohan Faye Ligaments and tendons striped away from right hand pinky finger 10/2016 Hospitalization History Reason Date(Month/Year) [facility] , Right pinky finger 10/2016
== END 2024-12-14 11:39 | disposition home or self-care (01) ==
LOC: HO.HMGCX 11:38
PROVIDERS: PCP Nurse Practitioner Family; Visit Provider Physician Assistant
DX: M79.5 Residual foreign body in soft tissue (principal)
CPT/HCPCS: 74018

== ENCOUNTER → 2024-12-14 11:48 | Outpatient (BNV) | payer OTHER, SELFPAY | PROVIDERS: PCP Nurse Practitioner Family; Visit Provider Radiology Diagnostic Radiology | DX: M79.5 Residual foreign body in soft tissue (principal) | CPT/HCPCS: 74018 ==

== ENCOUNTER → 2024-12-21 13:41 | Outpatient (BNVA) | payer OTHER, SELFPAY | PROVIDERS: PCP Nurse Practitioner Family; Visit Provider Physician Assistant | DX: M25.512 Pain in left shoulder (principal); Z98.890 Other specified postprocedural states | CPT/HCPCS: 99212 ==

== ENCOUNTER 2024-12-25 08:43 | Outpatient (AMB) | payer OTHER, SELFPAY ==
--- NOTE | 2024-12-25 08:49 | A.OFFVIS_ITS ---
Vital Signs 3 12/25/24 08:59 Height 5 ft 10 in Weight 245 lb BMI 35.2 BP 163/100 H Blood Pressure Location Lt brachial Position Sitting Pulse 90 Intake Visit Reasons: foreign body/ abdominal wall Intake Note: Patient is seen in office for foreign body of the abdominal wall. Pt c/o: has a lump over a month, had surgery at the beginning of the year for a hernia repair and unsure if that caused it, denies redness, discharge, admits to pain, diarrhea denies n/v/c us: 12/13/24 xray:12/14/24 Is/It Project Manager Required: No Accompanied by: Self / Same As Patient Allergies No Known Allergies (No Known Allergies*) Allergy (Verified 12/21/24 14:01) Medication List - Last Reconciled 12/25/24 by Elmo Nguyễn MD gabapentin 300 mg PO BEDTIME lorazepam 0.5 mg PO DAILY PRN 30 days losartan 100 mg PO DAILY needle (disp) 22 G As directed needle (disp) 25 gauge (BD Regular Bevel [place]) As directed weekly - for testosterone subcutaneous injection omeprazole 20 mg PO DAILY syringe (disposable) (BD Luer-Christiano Syringe) Testosterone injection weekly tadalafil 20 mg PO ONCE PRN 30 days testosterone cypionate (Depo-Testosterone) 100 mg (0.5 mL) subcut QWEEK 4 weeks HPI Comments Details: 44-year-old male presenting with complaints of a painful abdominal mass located in the left lower quadrant. He 1st noted the lump approximately a month ago and seems to have increased in size now measuring approximately the size of a golf ball. He reports increased pain when wearing his belt for work which seems to put pressure right on the lump. He has a history of prior umbilical hernia surgery and receives testosterone injections but generally this has in the back and never in the abdominal wall. His occupation does not involve metal filings or other potential foreign material. He underwent an evaluation with a pelvic ultrasound on 12/13/2024. This revealed a bright linear echogenic density measuring 1 x 7 mm questionable for soft tissue foreign body particularly a broken needle. There was a small amount of surrounding fluid measuring up to 1.7 x 0.6 by 2.6 cm. Patient presents today for possible removal of this foreign body. [facility] Medical History Foreign body in skin of abdomen TMJ (temporomandibular joint disorder) Tubular adenoma of colon GERD (gastroesophageal reflux disease) Anxiety with depression PTSD (post-traumatic stress disorder) Lumbar stenosis HTN (hypertension) Sleep apnea Hypogonadism in male BPH (benign prostatic hyperplasia) Renal calculi CKD (chronic kidney disease) Right foot pain Surgical History History of esophagogastroduodenoscopy (EGD) H/O colonoscopy Incarcerated umbilical hernia (04/14/24) Status post right rotator cuff repair Status post right foot surgery Family History Father No problems noted. Mother No problems noted. 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 Cognitive needs: No Hearing needs: No Vision needs: No Review of Systems Const All systems reviewed & are unremarkable except as noted in HPI and below Physical Exam Vital Signs: Last Vital Signs Pulse 90 12/25/24 08:59 BP 163/100 H 12/25/24 08:59 BMI result Body Mass Index 35.2 Const General: cooperative and no acute distress Nutritional Appearance: well nourished Orientation/consciousness: patient oriented x3 Limitations: no limitations HEENT Head: Yes normocephalic and Yes atraumatic Ears: hearing grossly normal bilaterally Resp Effort & Inspection: normal respiratory effort, no audible wheezes, no cough and no respiratory distress Cardio Jugular venous distension: no JVD GI Other: Palpable lump in the left lower quadrant right at the belt line measuring 4 by 3 cm, tender to palpation, non fluctuant foot with definite phlegmonous changes. No bleeding or discharge is noted. Inspection: Yes normal to inspection Palpation (GI): Soft to palpation, no guarding and not rigid Percussion: Yes normal to percussion Auscultation: normal bowel sounds Abdomen image: 2 1. Site of palpable foreign body reaction. Skin Other: Warm, dry, no rash Neuro General: patient oriented x3 Extrem General: Yes no clubbing, cyanosis or edema Assessment & Plan Assessment & Plan (1) Foreign body in skin of abdomen: Code(s): S30.851A - Superficial foreign body of abdominal wall, initial encounter Category: Medical Plan 44-year-old male patient presenting with a possible foreign body in the abdomen in the left lower quadrant which has become quite hard and painful over the past several weeks. Examination with ultrasound confirmed a possible metal fragment perhaps a needle of unknown source. I recommended an excision of the foreign body and surrounding phlegmon as a short-stay surgery and after discussion of the procedure, risks and alternatives, he consents to excision of the left lower quadrant foreign body. Coding Level of Care Code New Pt Level 4 (03148) Diagnoses Foreign body in skin of abdomen S30.851A
[2024-12-25 08:59] VITALS: BP 163/100; PULSE 90; BMI 35.2
--- OUTSIDE RECORDS SUMMARY | 2024-12-25 09:07 | XMS_ITS | Patient Health Record ---
Author Organization [facility] Address [address] [place] [address] Care Team Providers Care Grill Cook Name Role Phone Mildred Singh MD Primary Care Provider Bowen Miller Unavailable [phone] Reason For Referral No Information Medications Medication [...] Note-Appointment . . . [facility]; Duration: . Active Work [...] X ray : Foot, right 3V 10/14/2016 [id number]-Ouba Destruction, 02-2810/14/2016 57323-Lszo Destruction, 02-2812/21/2016 [id number]-Ogzy Destruction, 02-2801/18/2017 [id number] TENDON SHEATH/LIGAMENT 1 03/05/2017 Insurance Providers Payer Name Payer Address Payer Phone Subscriber Number Group Number Insured Name Patient Relationship to Insured Coverage Start Date Coverage End Date [facility] [address] [place] [address] [id number] Gerard Schultz Self - patient is the insured Medical (General) History Medical History History ICD Code Measles Chicken pox Surgical History Surgery Date(Month/Year) Kidney stones removed - Rohan Faye Ligaments and tendons striped away from right hand pinky finger 10/2016 Hospitalization History Reason Date(Month/Year) [facility] , Right pinky finger 10/2016
--- OUTSIDE RECORDS SUMMARY | 2024-12-25 09:07 | XMS_ITS | Clinical Summary ---
Author Organization [facility] Address [address] [place] [address] Care Team Providers Care Technician Preventative Medicine Name Role Phone Elmo Moreno Primary Care Provider [phone] Allergies No known active allergies Medications Medication [...] Advance Directives For more information, please contact: [phone] Latest Code Status on File Code Status Date Activated Date Inactivated Comments Full Code 03/18/2020 12:11 PM 03/18/2020 9:28 PM This c ode status was ascertained in the following way: discussion with patient . Care Teams Technician Preventative Medicine Relationship Specialty Start Date End Date Elmo Moreno: [id number] [address] [facility] [place] [address] PCP - General Family Medicine 03/07/20
--- OUTSIDE RECORDS SUMMARY | 2024-12-25 09:07 | XMS_ITS | Clinical Summary ---
Author Organization [facility] Facility Address [address] [place] [address] Care Team Providers Care E Business Consultant Name Role Phone Unavailable Primary Care [...]
--- OUTSIDE RECORDS SUMMARY | 2024-12-25 09:08 | XMS_ITS | Clinical Summary ---
Author Organization [facility] Address [address] [place] [address] Phone Care Team Providers Care Masonry Instructor Name Role Phone KbjoneElmo NP Primary Care Provider Allergies No known active allergies Medications syringe with needle, safety 1 mL 25 gauge x 5/8 syringe BD Disp Bow 25G X 5/8 Misc USE DIRECTED WEEKLY [...] and strain of hip and thigh Sacroiliitis ([facility] V24) 08/26/2021 Overview (03/14/2024): Last Assessment [...] questions answered. Stage 3a chronic kidney disease (CMS/[facility] V24, CM S/HCC V28) 03/02/2021 Essential hypertension 02/25/2021 Renal stone 02/25/2021 Other hammer toe(s) (acquired), right foot 02/13 Resolved Problems Problem Noted Date Diagnosed Date Resolved Date Dermatitis 09/21/2023 03/20/2024 Gastroenteritis 09/21/2023 03/20/2024 Encounters Date Type Department Care Team Description 10/25/2024 9:08 AM EDT - 10/25/2024 11:59 PM EDT Hospital Encounter [facility] Interventional Radiology [address] [place] [address] Sacroiliitis ([facility] V24) Discharge Disposition: Home or Self Care 09/25/2024 Telephone Neurosurgery [facility] [address] [place] [address] Allison Jung MA from Last [...] BILAT Routine 10/25/2024 11:09 AM EDT Sacroiliitis ([facility] V24) from Last 3 Months Results [...] Signed Date: 10/25/2024 11:35 ET Workstation ID: [id number] Transcribed By: Self Edit Transcribed Date: 10/25/2024 [...] Signed Date: 10/25/2024 11:35 ET Workstation ID: [id number] Transcribed By: Self Edit Transcribed Date: 10/25/2024 11:32 ET Mally QUIÑONEZ IMG IR PROCEDURES Final Re sult from Last 3 Months Insurance [facility] Care Teams Masonry Instructor Relationship Specialty Start Date End Date Elmo Moreno NP [address] [facility] [place] PCP - General 05/15/22
== END 2024-12-25 09:14 | disposition home or self-care (01) ==
LOC: HO.HGS 08:44
PROVIDERS: PCP Nurse Practitioner Family; Visit Provider Surgery
DX: S30.851A Superficial foreign body of abdominal wall, initial encounter (principal)
CPT/HCPCS: 99204

== ENCOUNTER → 2024-12-25 08:43 | Outpatient (BNVA) | payer OTHER, SELFPAY | PROVIDERS: PCP Nurse Practitioner Family; Visit Provider Surgery | DX: S30.851A Superficial foreign body of abdominal wall, initial encounter (principal); R19.04 Left lower quadrant abdominal swelling, mass and lump; R10.32 Left lower quadrant pain; Z98.890 Other specified postprocedural states; Z87.19 Personal history of other diseases of the digestive system | CPT/HCPCS: 99202 ==

== ENCOUNTER 2025-01-18 11:13 | Outpatient (REF) | payer OTHER, SELFPAY ==
[2025-01-18 15:35] LABS: CT PCR Urine NOT DETECTED (Not Detect.); NG PCR Urine NOT DETECTED (Not Detect.)
== END 2025-01-18 11:14 | disposition home or self-care (01) ==
LOC: HO.LAB 11:13
PROVIDERS: PCP Nurse Practitioner Family; Visit Provider Nurse Practitioner Family
DX: N30.91 Cystitis, unspecified with hematuria (principal); R30.0 Dysuria; Z20.2 Contact with and (suspected) exposure to infections with a predominantly sexual mode of transmission
CPT/HCPCS: 81003; 87086; 87491; 87591; 99212

== ENCOUNTER 2025-01-18 11:13 | Outpatient (AMB) | payer OTHER, SELFPAY ==
[2025-01-18 11:14] VITALS: BP 132/90; PULSE 101; TEMP 36.9; O2SAT 96; BMI 35.4
--- NOTE | 2025-01-18 11:14 | MHC.OFFWIV ---
Intake Vital Signs 01/18/25 11:14 Height 5 ft 10 in Weight 247 lb BMI 35.4 BP 132/90 H Blood Pressure Location Lt brachial Position Sitting Pulse 101 H Pulse Source Pulse Oximeter Temp 98.4 F Temp Source Oral Pulse Oximetry (%) 96 Oxygen Delivery Method Room Air Intake Visit Reasons: EP-?uti Intake Note: pt presents with burning with peeing coming/going x1 wk Patient Tobacco Use Status: Former Tobacco user Allergies No Known Allergies (No Known Allergies*) Allergy (Verified 01/18/25 11:18) Medication List - Last Reconciled 01/18/25 by Marce Vivar NP lorazepam 0.5 mg PO DAILY PRN 30 days losartan 100 mg PO DAILY needle (disp) 22 G As directed needle (disp) 25 gauge (BD Regular Bevel [place]) As directed weekly - for testosterone subcutaneous injection omeprazole 20 mg PO DAILY syringe (disposable) (BD Luer-Christiano Syringe) Testosterone injection weekly tadalafil 20 mg PO ONCE PRN 30 days testosterone cypionate (Depo-Testosterone) 100 mg (0.5 mL) subcut QWEEK 4 weeks Do you need a note to return to daycare/school/sports/work: No HPI HPI Comments History of Present Illness Details 44-year-old male presents with dysuria x 1 week. Symptoms are intermittent, occurring only during urination. Reports a similar episode a few months ago when he was diagnosed with a renal stone with hematuria; he was evaluated by nephrology, but symptoms had resolved by the time of his appointment. Currently denies pain, fevers, chills, nausea, or vomiting. Sexually active with one female partner, does not use condoms. Requests STI testing today. [facility] Medical History (Updated 01/18/25 @ 11:45 by Marce Vivar NP) Dysuria Foreign body in skin of abdomen TMJ (temporomandibular joint disorder) Tubular adenoma of colon GERD (gastroesophageal reflux disease) Anxiety with depression PTSD (post-traumatic stress disorder) Lumbar stenosis HTN (hypertension) Sleep apnea Hypogonadism in male BPH (benign prostatic hyperplasia) Renal calculi CKD (chronic kidney disease) Right foot pain Surgical History History of esophagogastroduodenoscopy (EGD) H/O colonoscopy Incarcerated umbilical hernia (04/14/24) Status post right rotator cuff repair Status post right foot surgery Family History Father No problems noted. Mother No problems noted. 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 Cognitive needs: No Hearing needs: No Vision needs: No Review of Systems Const All systems reviewed & are unremarkable except as noted in HPI and below Physical Exam Vital Signs: Last Vital Signs Temp 98.4 F 01/18/25 11:14 Pulse 101 H 01/18/25 11:14 BP 132/90 H 01/18/25 11:14 Pulse Ox 96 01/18/25 11:14 Oxygen Delivery Method Room Air 01/18/25 11:14 BMI result Body Mass Index 35.4 Const General: comfortable and no acute distress Nutritional Appearance: obese Orientation/consciousness: patient oriented x3 General: Yes no CVA tenderness and Yes deferred Back/Spine/Pelvis Back: no CVA tenderness Neuro General: patient oriented x3, gait normal and moves all extremities Psych Speech and movement: Normal speech and movement present Results AMB Urinalysis, Automated UA Leukoctes 0 Inocente/uL Last Edit by Comfort Florentino CMA on 01/18/25 11:27 UA Nitrite Negative Last Edit by Comfort Florentino CMA on 01/18/25 11:27 UA Urobilinogen 0.2 mg/dL Last Edit by Comfort Florentino CMA on 01/18/25 11:27 UA Protein 30 mg/dL Last Edit by Comfort Florentino CMA on 01/18/25 11:27 1+ Comfort Florentino 01/18/25 11:27 UA pH 6.0 Last Edit by Comfort Florentino CMA on 01/18/25 11:27 UA Blood 10 [place]/uL Last Edit by Comfort Florentino CMA on 01/18/25 11:27 UA Specific [place] 1.015 Last Edit by Comfort Florentino CMA on 01/18/25 11:27 UA Ketone Negative Last Edit by Comfort Florentino CMA on 01/18/25 11:27 UA Bilirubin 0 mg/dL Last Edit by Comfort Florentino CMA on 01/18/25 11:27 UA Glucose 0 mg/dL Last Edit by Comfort Florentino CMA on 01/18/25 11:27 Results Reviewed Results Reviewed: Laboratory Last Values Urine pH (Auto) 6.0 01/18/25 11:25 Specific [place] (Auto) 1.015 01/18/25 11:25 Urine Protein (Auto) 30 mg/dL H* 01/18/25 11:25 Glucose (UA)(Auto) 0 mg/dL 01/18/25 11:25 Urine Ketones (Auto) Negative 01/18/25 11:25 Urine Blood (Auto) 10 [place]/uL H 01/18/25 11:25 Urine Nitrite (Auto) Negative 01/18/25 11:25 Urine Bilirubin (Auto) 0 mg/dL 01/18/25 11:25 Urine Urobilinogen (Auto) 0.2 mg/dL 01/18/25 11:25 Leukocyte Esterase (Auto) 0 Inocente/uL 01/18/25 11:25 Assessment & Plan Assessment & Plan (1) Dysuria: Code(s): R30.0 - Dysuria Plan: Dysuria ? intermittent; differential includes urethritis, STI (chlamydia/gonorrhea/trich), UTI, residual irritation from prior stone, prostatitis (less likely without pain/fever). Sent Urine for C&S and NAAT for GC/CT/Trich. Urinalysis today positive for Blood and Proteins. Hold empiric treatment for now pending results. Follow-up: Call with results; return sooner for worsening dysuria, flank pain, visible hematuria, fevers, or inability to urinate. Orders: Orders CT NG by PCR Urine Today R30.0 - Dysuria AMB Urinalysis Automated Today Z13.9 - Encounter for screening, unspecified Urine Culture Today N30.90 - Cystitis, unspecified without hematuria Coding Level of Care Code Est Pt Level 4 (91300) Diagnoses Dysuria R30.0 Time Spent (min) 20
== END 2025-01-18 11:45 | disposition home or self-care (01) ==
PROVIDERS: PCP Nurse Practitioner Family; Visit Provider Nurse Practitioner Family
DX: Z13.9 Encounter for screening, unspecified (principal); R30.0 Dysuria

== ENCOUNTER 2025-02-01 13:48 | Outpatient (AMB) | payer OTHER, SELFPAY ==
--- NOTE | 2025-02-01 13:54 | MHC.OFFVIS ---
Intake Visit Reasons: OV-Left RTC repair 08/09/24 Intake Note: Gerard is a 44 year old right hand dominant male who presents today for a follow up of his Left shoulder RTC repair with SAD and sub pectoral biceps tenodesis 08/09/24. He is working with physical therapy which he is improving but he needs to keep working on his strengthening. Allergies No Known Allergies (No Known Allergies*) Allergy (Verified 02/01/25 13:54) HPI Comments Details: History of Present Illness The patient is a 44 year old male presenting for Routine follow-up status post left shoulder rotator cuff repair, SCD and subpectoral biceps tenodesis performed on 08/09/[address] Monson. He is currently undergoing physical therapy and is scheduled to begin strength training in February. 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 He attempted to return to work but was sent home due to the physical requirements of his job; he noted an instance where his hand started shaking while trying to hold a small cup of paint. Pain Description - Location: Unspecified shoulder. - Quality: Reports a throbbing pain if he forgets and leans on the affected side. - Exacerbating Factors: Pain occurs at the end of his range of motion when lifting his arm up. - Functional Impact: The patient reported his hand shaking when he attempted to hold a cup of paint, causing him to almost drop it. Results [facility] Medical History (Updated 01/18/25 @ 11:45 by Marce Vivar NP) Dysuria Foreign body in skin of abdomen TMJ (temporomandibular joint disorder) Tubular adenoma of colon GERD (gastroesophageal reflux disease) Anxiety with depression PTSD (post-traumatic stress disorder) Lumbar stenosis HTN (hypertension) Sleep apnea Hypogonadism in male BPH (benign prostatic hyperplasia) Renal calculi CKD (chronic kidney disease) Right foot pain Surgical History History of esophagogastroduodenoscopy (EGD) H/O colonoscopy Incarcerated umbilical hernia (04/14/24) Status post right rotator cuff repair Status post right foot surgery Family History Father No problems noted. Mother No problems noted. 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 - Neurological: Reports hand shaking when attempting to hold an object. - Gastrointestinal: Reports recent abdominal surgery for a retained foreign body, which was preceded by a palpable lump in his abdomen. Const All systems reviewed & are unremarkable except as noted in HPI and below Physical Exam Exam Exam: Physical Exam - Musculoskeletal: Observation of active range of motion demonstrates full forward flexion and abduction of the shoulder with patient-reported tension and pain at the terminal range. Internal rotation to T12. Const General: cooperative, healthy appearing and no acute distress Resp Effort & Inspection: normal respiratory effort and able to speak in complete sentences Psych Appearance: grossly normal Mental Status: mental status grossly normal Attitude: cooperative Assessment & Plan Assessment & Plan (1) S/P left rotator cuff repair: Code(s): Z98.890 - Other specified postprocedural states Category: Medical Plan 1. Postoperative Shoulder Rehabilitation The patient is progressing well in physical therapy, with his therapist noting good rotation and movement. He is scheduled to begin strength training in February, which will continue for approximately three weeks. He will be provided with a disability note extending his time off work until the first week of March to allow for adequate strengthening before returning to his physically demanding job. He was advised to call if his recovery timeline deviates from this plan. Consent: Patient was informed and verbally consented to the use of an ambient scribe for clinic note documentation during this visit. Coding Level of Care Code Est Pt Level 3 (37050) Add On Problem Visit Only Diagnoses S/P left rotator cuff repair Z98.890
--- OUTSIDE RECORDS SUMMARY | 2025-02-01 18:03 | XMS_ITS | Clinical Summary ---
Author Organization [facility] Prior to 07/15/[address] [place] [address] Care Team Providers Care Stock Counter Name Role Phone Elmo Moreno Primary Care Provider [phone] Allergies No known active allergies Medications Medication [...] Advance Directives For more information, please contact: [phone] Latest Code Status on File Code Status Date Activated Date Inactivated Comments Full Code 03/18/2020 12:11 PM 03/18/2020 9:28 PM This c ode status was ascertained in the following way: discussion with patient . Care Teams Stock Counter Relationship Specialty Start Date End Date Elmo Moreno: [phone] [address] [facility] [place] [id number] PCP - General Family Medicine 03/07/20
--- OUTSIDE RECORDS SUMMARY | 2025-02-01 18:03 | XMS_ITS | Clinical Summary ---
Author Organization [facility] Facility Address [address] [place] [address] Care Team Providers Care Third Steel Pourer Name Role Phone Unavailable Primary Care Provider [...]
--- OUTSIDE RECORDS SUMMARY | 2025-02-01 18:03 | XMS_ITS | Patient Health Record ---
Author Organization [facility] Address [address] [facility] [place] [address] Care Team Providers Care [place] Boatman Name Role Phone Mildred Singh MD Primary Care Provider Bowen Miller Unavailable [phone] Reason For Referral No Information Medications Medication [...] Note-Appointment . . . Pt had a [facility] appointment today; Duration: . Active [...] X ray : Foot, right 3V 10/14/2016 [id number] Destruction, 02-2810/14/2016 [id number] Destruction, 02-2812/21/2016 [id number] Destruction, 02-2801/18/2017 [id number] TENDON SHEATH/LIGAMENT 1 03/05/2017 Insurance Providers Payer Name Payer Address Payer Phone Subscriber Number Group Number Insured Name Patient Relationship to Insured Coverage Start Date Coverage End Date [facility] [address] [place] [address] [id number] Gerard Schultz Self - patient is the insured Medical (General) History Medical History History ICD Code Measles Chicken pox Surgical History Surgery Date(Month/Year) Kidney stones removed - Rohan Faye Ligaments and tendons striped away from right hand pinky finger 10/2016 Hospitalization History Reason Date(Month/Year) [facility] , Right pinky finger 10/2016
--- OUTSIDE RECORDS SUMMARY | 2025-02-01 18:04 | XMS_ITS | Clinical Summary ---
Author Organization [address] [facility] Address [address] [place] [address] Phone Care Team Providers Care Hemmer Chainstitch Name Role Phone KbjoneElmo NP Primary Care Provider Allergies No known active allergies Medications syringe with needle, safety 1 mL 25 gauge x 5/8 syringe BD Disp Runge 25G X 5/8 Misc USE DIRECTED WEEKLY [...] Dermatitis 09/21/2023 03/20/2024 Gastroenteritis 09/21/2023 03/20/2024 Immunizations Immunization Administration Dates Next Due Anthrax 08/16/2012,,09/04/2009,03/27,09/12/2007,03/30/2007,03/10/2007 ,02/21/2007 H1N1 Inj Preservative Free 02/25/2009 Hepatitis [...] Orientation Straight 04/28/2024 7: 04 AM EDT Last Filed Vital Signs Vital Sign Reading [...] patient's age to complete this topic Insurance [facility] PL[facility] Care Teams Hemmer Chainstitch Relationship Specialty Start Date End Date Elmo Moreno NP [address] [facility] [place] PCP - General 05/15/22
== END 2025-02-01 14:22 | disposition home or self-care (01) ==
LOC: HO.HOS 13:50
PROVIDERS: PCP Nurse Practitioner Family; Visit Provider Physician Assistant
DX: Z47.89 Encounter for other orthopedic aftercare (principal); Z98.890 Other specified postprocedural states
CPT/HCPCS: 99213; G2211

== ENCOUNTER → 2025-02-01 13:48 | Outpatient (BNVA) | payer OTHER, SELFPAY | PROVIDERS: PCP Nurse Practitioner Family; Visit Provider Physician Assistant | DX: Z47.89 Encounter for other orthopedic aftercare (principal); Z98.890 Other specified postprocedural states | CPT/HCPCS: 99212 ==